=== PATIENT | female | born 1960 | race Two or more races ===

== ENCOUNTER → 2020-08-17 15:25 | Outpatient (BNV) | payer MEDICAID, SELFPAY | PROVIDERS: PCP Family Medicine; Visit Provider Internal Medicine | DX: D61.818 Other pancytopenia (principal) | CPT/HCPCS: 99204; 99213; 99214 ==

== ENCOUNTER → 2020-08-22 14:47 | Outpatient (BNVA) | payer MEDICAID, SELFPAY | PROVIDERS: PCP Family Medicine; Referring Provider Family Medicine; Visit Provider Nurse Practitioner | DX: K74.60 Unspecified cirrhosis of liver (principal); R18.8 Other ascites; I85.10 Secondary esophageal varices without bleeding; D69.6 Thrombocytopenia, unspecified; K31.9 Disease of stomach and duodenum, unspecified; Z79.899 Other long term (current) drug therapy | CPT/HCPCS: 99212 ==

== ENCOUNTER → 2020-09-26 09:13 | Outpatient (BNVA) | payer MEDICAID, SELFPAY | PROVIDERS: PCP Family Medicine; Referring Provider Family Medicine; Visit Provider Nurse Practitioner | DX: Z76.89 Persons encountering health services in other specified circumstances (principal) ==

== ENCOUNTER → 2020-11-21 15:09 | Outpatient (BNVA) | payer MEDICAID, SELFPAY | PROVIDERS: PCP Family Medicine; Visit Provider Nurse Practitioner ==

== ENCOUNTER → 2022-10-11 10:53 | Outpatient (BNVA) | payer MEDICAID, SELFPAY | PROVIDERS: PCP Family Medicine; Visit Provider Nurse Practitioner | DX: K74.60 Unspecified cirrhosis of liver (principal); D69.6 Thrombocytopenia, unspecified; R18.8 Other ascites | CPT/HCPCS: 99212 ==

== ENCOUNTER 2022-10-29 16:06 | Outpatient (REF) | payer MEDICAID, SELFPAY ==
[2022-10-29 18:04] LABS: Hematocrit 34.5 % (37.0-47.0); Hemoglobin 11.8 g/dl (12.0-16.0); Mean Corpuscular HGB Conc 34.2 g/dl (31.0-35.0); Mean Corpuscular Hemoglobin 28.4 pg (27.0-33.0); Mean Corpuscular Volume 83.1 fL (80.0-98.0); Mean Platelet Volume 10.1 fL (9.4-12.3); Red Blood Count 4.15 X10*6/uL (4.20-5.50); Red Cell Distribution Width 14.9 % (11.0-16.0); White Blood Count 5.7 X10*3/uL (4.8-10.8)
[2022-10-29 18:05] LABS: Platelet Count 64 X10*3/uL (160-400)
[2022-10-29 18:08] LABS: INTERNATIONAL NORM RATIO 1.3 (0.9-1.1); Prothrombin Time 14.7 SEC (10.0-13.1)
[2022-10-29 18:20] LABS: Potassium Urine Random 20.7 mmol/L
[2022-10-29 19:00] LABS: Alanine Aminotransferase 28 U/L (0-31); Albumin Level 2.9 g/dL (3.5-5.0); Alkaline Phosphatase 220 U/L (39-117); Anion Gap 11 (12-20); Aspartate Amino Transferase 38 U/L (5-31); Bilirubin Total 1.6 mg/dL (0.0-1.0); Blood Urea Nitrogen 10 mg/dL (9-16); Calcium 8.6 mg/dL (8.4-10.2); Carbon Dioxide 24 mmol/L (22-29); Chloride 102 mmol/L (96-108); Estimated Glomerular Filt Rate > 60; Glucose Random 397 mg/dL (60-115); Potassium 3.8 mmol/L (3.3-5.1); Sodium 133 mmol/L (135-145); Total Protein 7.3 g/dL (6.5-8.0)
[2022-10-31 08:21] LABS: Hepatitis A Antibody IgG REACTIVE (Nonreactive)
[2022-10-31 08:22] LABS: HBS Num1 98.72 mIU/mL (0-7.99); HBc Num1 8.81 S/CO (0.00-0.79); HBsAGNum1 0.39 S/CO (0.00-0.99); Hepatitis B Surface Antigen Negative (Negative); ~HepC Num1 0.12 S/CO (0.00-0.79); ~Hepatitis B Surface Antibody REACTIVE (Nonreactive); ~Hepatitis C Antibody Nonreactive (Nonreactive)
[2022-10-31 10:11] LABS: HBc Num2 8.81 S/CO; Hepatitis B Core Antibody Reactive (Nonreactive)
[2022-11-02 16:03] LABS: Hepatitis B Core Antibody IgM NON-REACTIVE (NON-REACTIVE)
== END 2022-10-29 16:07 | disposition home or self-care (01) ==
LOC: HO.LAB 16:06
PROVIDERS: PCP Family Medicine; Visit Provider Internal Medicine
DX: K74.60 Unspecified cirrhosis of liver (principal); K76.82 Hepatic encephalopathy; R18.8 Other ascites; I85.00 Esophageal varices without bleeding; J98.4 Other disorders of lung; J91.8 Pleural effusion in other conditions classified elsewhere; Z79.899 Other long term (current) drug therapy; Z86.010 Personal history of colon polyps
CPT/HCPCS: 36415; 80053; 84133; 84300; 85027; 85610; 86704; 86705; 86706; 86708; 86803; 87340; 99212

== ENCOUNTER → 2022-11-27 10:35 | Outpatient (BNVA) | payer MEDICAID, SELFPAY | PROVIDERS: PCP Family Medicine; Visit Provider Internal Medicine | DX: K74.60 Unspecified cirrhosis of liver (principal); R18.8 Other ascites; I85.00 Esophageal varices without bleeding; K76.9 Liver disease, unspecified; J91.8 Pleural effusion in other conditions classified elsewhere; J94.8 Other specified pleural conditions; K76.82 Hepatic encephalopathy; Z86.010 Personal history of colon polyps; Z79.899 Other long term (current) drug therapy | CPT/HCPCS: 99212 ==

== ENCOUNTER 2023-02-04 13:18 | Emergency (ER) | payer MEDICAID, SELFPAY ==
[2023-02-04 13:58] VITALS: BP 134/57; PULSE 90; RESP 18; TEMP 36.7; O2SAT 99; BMI 32.9
--- NOTE | 2023-02-04 13:58 | ED.GENADULT ---
HPI - General Adult General Chief complaint: Skin/Abscess/Foreign Body Stated complaint: Rash Time Seen by Provider: 02/04/23 14:00 Source: patient and family Mode of arrival: ambulatory Limitations: no limitations History of Present Illness HPI narrative: 62 yo Cymro speaking female with history of cirrhosis w/ history of encephalopathy, ascites, thromocytopenia who presents to the ER for evaluation of a pruritic rash all over her body for the last 3 weeks, it is overall improving. She is here with her daughter who has a similar rash. She denies any new soaps, lotions, detergents or perfumes. She cannot recall where the rash started. She has not taken any medications or used any creams for the rash and it is almost gone on its own. MD complaint: rash Onset (ago): week(s) (3) Severity: moderate Quality: other (itchy) Pain Consistency: intermittent Relieving factors: none Exacerbating factors: none Associated symptoms: denies other symptoms Treatments prior to arrival: none Related Data Home Medications Medication Instructions Recorded Confirmed benztropine 0.5 mg tablet 0.5 mg PO BID 08/17/20 03/23/22 haloperidol 5 mg tablet 5 mg PO BEDTIME 08/17/20 03/23/22 insulin glargine 100 unit/mL 50 unit subcut QPM 08/17/20 03/23/22 subcutaneous cartridge insulin lispro 100 unit/mL See Protocol subcut TID 08/17/20 03/23/22 subcutaneous pen (Humalog KwikPen (U-100) Insulin) lorazepam 0.5 mg tablet 0.5 mg PO DAILY 08/17/20 03/23/22 glipizide 10 mg tablet 10 mg PO BID 09/26/20 03/23/22 Previous Rx's Medication Instructions Recorded blood pressure monitor (Blood #1 ea 10/29/22 Pressure Kit) peg 3350-electrolytes 236 240 ml PO Q10M colonoscopy #4,000 10/29/22 gram-22.74 gram-6.74 gram-5.86 mL gram solution (Golytely) spironolactone 100 mg tablet 100 mg PO DAILY 30 days #30 tabs 10/29/22 furosemide 40 mg tablet 40 mg PO QAM 90 days #90 tabs 01/29/23 propranolol 10 mg tablet 30 mg PO BID 30 days #180 tabs 01/29/23 hydrocortisone 2.5 % topical 1 appl topical BID PRN itching 02/04/23 ointment #28.35 grams Allergies Allergy/AdvReac Type Severity Reaction Status Date / Time Penicillins Allergy Unknown HIVES Verified 11/27/22 10:42 Review of Systems Review of Systems: Yes all other systems are reviewed and are negative [facility] Past Medical History Medical History Cirrhosis of liver with ascites Diabetes Esophageal varices determined by endoscopy Hypertension Parkinson disease Surgical History Hx of colonoscopy Hx of esophagogastroduodenoscopy Family History Family History Father Colon cancer Mother Diabetes Colon polyps Daughter Lupus Social History Social History Household Members: Children Housing: House Housing Other:: Duplex Are you a primary home health care worker to a significant other at home: No Do you presently have visiting nurse or other home services: No Alcohol intake: former Patient Tobacco Use Status: Never used Tobacco Advance Directives: No Advance Directives Information Provided: Yes service: No Current occupational status: unemployed and disabled Physical Exam ED Vital Signs: Vital Signs - 24 hr 02/04/23 13:58 Temperature 98.0 F Pulse Rate 90 Respiratory Rate 18 Blood Pressure 134/57 L Pulse Oximetry 99 Oxygen Delivery Method Room Air BMI result Body Mass Index 32.9 Appearance: Alert. Oriented X3. No acute distress. HEENT: normal inspection CVS: Normal heart rate and rhythm. Pulses normal. Respiratory: No respiratory distress. Skin: Skin warm and dry. Normal skin color. Normal skin turgor. No rashes. Few excoriations to the upper back. Extremities: normal inspection x4, no joint swelling Neuro: Oriented X 3. No motor deficit. No sensory deficit. Course Course Course Narrative: RME - 62yo female presenting for rash that began 3 weeks ago on her arms, back, and trunk which have been improving over time. Her daughter developed a similar rash 1 week ago. Patient has not taken anything for the rash. Denies new lotions, creams, medications, detergents. Endorses pruritis, denies fever. Plan: d/c Medical Decision Making Medical Decision Making [facility] Narrative: 62 yo female presenting to the ER for a rash for the last 3 weeks. No visible rash on exam, small excoriations on upper back from scratching. She reports some ongoing itching but overall improved. Exam is unreamarkable. Will start PRN topical steroids and PRN benadryl. Stable for d/c home. Differential Diagnosis Differential Diagnoses: The differential diagnosis associated with the presentation includes contact dermatitis, eczema, bed bugs, allergic reaction Independent Historian Clinical information obtained from an independent historian. History obtained from or confirmed by: Other (daughter) External Record Review External record reviewed: Prior outpatient labs Prescription Management I considered prescription management with: Other (steroids) Critical Care Time Critical Care Time Critical Care Time: No Discharge Plan Discharge Clinical Impression: Dermatitis Patient Disposition: Home, Self-Care Instructions: Dermatitis (ED) Additional Instructions: Recommend 50mg of Benadryl every 6-8 hours as needed for itching Use the Hydrocortisone ointment as needed for itching. Follow up with your primary care doctor. Prescriptions: New hydrocortisone 2.5 % ointment 1 appl topical BID PRN (Reason: itching) Qty: 28.35 0RF No Action propranolol 10 mg tablet 30 mg PO BID 30 Days Qty: 180 0RF furosemide 40 mg tablet 40 mg PO QAM 90 Days Qty: 90 0RF benztropine 0.5 mg Tablet 0.5 mg PO BID haloperidol 5 mg Tablet 5 mg PO BEDTIME lorazepam 0.5 mg Tablet 0.5 mg PO DAILY insulin lispro [Humalog KwikPen Insulin] 100 unit/mL Insulin Pen See Protocol SUBCUT TID Protocol: Insulin Correction Scale Less than or equal to 110 ---- Give (units): 0 111 to 150 Give (units): 0 151 to 200 Give (units): 2 201 to 250 Give (units): 4 251 to 300 Give (units): 6 301 to 350 Give (units): 8 Greater than 350 Give (units): 10 Call MD if Blood Glucose > : 350 Patient Comments: pt has MD sliding scale Rx Instructions: sliding scale Lantus U-100 Insulin 100 unit/mL Cartridge 50 unit SUBCUT QPM glipizide 10 mg tablet 10 mg PO BID (DME) blood pressure monitor [Blood Pressure Kit] Kit See Rx Instructions .Route Qty: 1 0RF Rx Instructions: As directed peg 3350-electrolytes [Golytely] 236-22.74-6.74 -5.86 gram recon soln 240 ml PO Q10M Qty: 4000 0RF Rx Instructions: as per split prep instructions, until fecal effluent is clear spironolactone 100 mg tablet 100 mg PO DAILY 30 Days Qty: 30 0RF Interventions: ED Discharge Assessment Last Done: 02/04/23 14:04 Discharge Date/Time: 02/04/23 14:07 Print Language: Cymro
--- NOTE | 2023-02-04 14:04 | ED_ITS ---
HPI - General Adult General Chief complaint: Skin/Abscess/Foreign Body Stated complaint: Rash Time Seen by Provider: 02/04/23 14:00 Related Data Home Medications Medication Instructions Recorded Confirmed benztropine 0.5 mg tablet 0.5 mg PO BID 08/17/20 03/23/22 haloperidol 5 mg tablet 5 mg PO BEDTIME 08/17/20 03/23/22 insulin glargine 100 unit/mL 50 unit subcut QPM 08/17/20 03/23/22 subcutaneous cartridge insulin lispro 100 unit/mL See Protocol subcut TID 08/17/20 03/23/22 subcutaneous pen (Humalog KwikPen (U-100) Insulin) lorazepam 0.5 mg tablet 0.5 mg PO DAILY 08/17/20 03/23/22 glipizide 10 mg tablet 10 mg PO BID 09/26/20 03/23/22 Previous Rx's Medication Instructions Recorded blood pressure monitor (Blood #1 ea 10/29/22 Pressure Kit) peg 3350-electrolytes 236 240 ml PO Q10M colonoscopy #4,000 10/29/22 gram-22.74 gram-6.74 gram-5.86 mL gram solution (Golytely) spironolactone 100 mg tablet 100 mg PO DAILY 30 days #30 tabs 10/29/22 furosemide 40 mg tablet 40 mg PO QAM 90 days #90 tabs 01/29/23 propranolol 10 mg tablet 30 mg PO BID 30 days #180 tabs 01/29/23 hydrocortisone 2.5 % topical 1 appl topical BID PRN itching 02/04/23 ointment #28.35 grams Allergies Allergy/AdvReac Type Severity Reaction Status Date / Time Penicillins Allergy Unknown HIVES Verified 11/27/22 10:42 [facility] Past Medical History Medical History Cirrhosis of liver with ascites Diabetes Esophageal varices determined by endoscopy Hypertension Parkinson disease Surgical History Hx of colonoscopy Hx of esophagogastroduodenoscopy Family History Family History Father Colon cancer Mother Diabetes Colon polyps Daughter Lupus Social History Social History Household Members: Children Housing: House Housing Other:: [employer] Are you a primary child care cook to a significant other at home: No Do you presently have visiting nurse or other home services: No Alcohol intake: former Patient Tobacco Use Status: Never used Tobacco Advance Directives: No Advance Directives Information Provided: Yes service: No Current occupational status: unemployed and disabled Physical Exam ED Vital Signs: Vital Signs - 24 hr 02/04/23 13:58 Temperature 98.0 F Pulse Rate 90 Respiratory Rate 18 Blood Pressure 134/57 L Pulse Oximetry 99 Oxygen Delivery Method Room Air BMI result Body Mass Index 32.9 Discharge Plan Discharge Clinical Impression: Dermatitis Patient Disposition: Home, Self-Care Instructions: Dermatitis (ED) Additional Instructions: Recommend 50mg of Benadryl every 6-8 hours as needed for itching Use the Hydrocortisone ointment as needed for itching. Follow up with your primary care doctor. Prescriptions: New hydrocortisone 2.5 % ointment 1 appl topical BID PRN (Reason: itching) Qty: 28.35 0RF No Action propranolol 10 mg tablet 30 mg PO BID 30 Days Qty: 180 0RF furosemide 40 mg tablet 40 mg PO QAM 90 Days Qty: 90 0RF benztropine 0.5 mg Tablet 0.5 mg PO BID haloperidol 5 mg Tablet 5 mg PO BEDTIME lorazepam 0.5 mg Tablet 0.5 mg PO DAILY insulin lispro [Humalog KwikPen Insulin] 100 unit/mL Insulin Pen See Protocol SUBCUT TID Protocol: Insulin Correction Scale Less than or equal to 110 ---- Give (units): 0 111 to 150 Give (units): 0 151 to 200 Give (units): 2 201 to 250 Give (units): 4 251 to 300 Give (units): 6 301 to 350 Give (units): 8 Greater than 350 Give (units): 10 Call MD if Blood Glucose > : 350 Patient Comments: pt has MD sliding scale Rx Instructions: sliding scale Lantus U-100 Insulin 100 unit/mL Cartridge 50 unit SUBCUT QPM glipizide 10 mg tablet 10 mg PO BID (DME) blood pressure monitor [Blood Pressure Kit] Kit See Rx Instructions .Route Qty: 1 0RF Rx Instructions: As directed peg 3350-electrolytes [Golytely] 236-22.74-6.74 -5.86 gram recon soln 240 ml PO Q10M Qty: 4000 0RF Rx Instructions: as per split prep instructions, until fecal effluent is clear spironolactone 100 mg tablet 100 mg PO DAILY 30 Days Qty: 30 0RF Interventions: ED Discharge Assessment Last Done: 02/04/23 14:04 Print Language: Maori
== END 2023-02-04 14:07 | disposition home or self-care (01) ==
PROVIDERS: Emergency Provider Emergency Medicine; PCP Registered Nurse
DX: L30.9 Dermatitis, unspecified (principal); Z79.899 Other long term (current) drug therapy
CPT/HCPCS: 99282; 99283

== ENCOUNTER 2023-03-20 14:46 | Outpatient (REF) | payer MEDICAID, SELFPAY ==
[2023-03-20 16:51] LABS: Hematocrit 30.1 % (37.0-47.0); Hemoglobin 10.1 g/dl (12.0-16.0); Mean Corpuscular HGB Conc 33.6 g/dl (31.0-35.0); Mean Corpuscular Hemoglobin 27.7 pg (27.0-33.0); Mean Corpuscular Volume 82.7 fL (80.0-98.0); Mean Platelet Volume 9.8 fL (9.4-12.3); Red Blood Count 3.64 X10*6/uL (4.20-5.50); Red Cell Distribution Width 14.9 % (11.0-16.0)
[2023-03-20 16:54] LABS: INTERNATIONAL NORM RATIO 1.2 (0.9-1.1); Prothrombin Time 13.6 SEC (10.0-13.1)
[2023-03-20 16:56] LABS: Platelet Count 68 X10*3/uL (160-400)
[2023-03-20 17:12] LABS: Potassium Urine Random 29.5 mmol/L
[2023-03-20 17:18] LABS: Alanine Aminotransferase 36 U/L (0-31); Albumin Level 2.4 g/dL (3.5-5.0); Alkaline Phosphatase 220 U/L (39-117); Anion Gap 11 (12-20); Aspartate Amino Transferase 42 U/L (5-31); Bilirubin Total 1.1 mg/dL (0.0-1.0); Blood Urea Nitrogen 17 mg/dL (9-16); Calcium 8.2 mg/dL (8.4-10.2); Carbon Dioxide 22 mmol/L (22-29); Chloride 102 mmol/L (96-108); Estimated Glomerular Filt Rate > 60; Glucose Random 342 mg/dL (60-115); Potassium 4.5 mmol/L (3.3-5.1); Sodium 130 mmol/L (135-145); Total Protein 6.5 g/dL (6.5-8.0)
== END 2023-03-20 14:47 | disposition home or self-care (01) ==
LOC: HO.LAB 14:46
PROVIDERS: PCP Registered Nurse; Visit Provider Internal Medicine
DX: R18.8 Other ascites (principal); K21.9 Gastro-esophageal reflux disease without esophagitis; K74.60 Unspecified cirrhosis of liver; I85.00 Esophageal varices without bleeding; K76.9 Liver disease, unspecified; J91.8 Pleural effusion in other conditions classified elsewhere; J94.8 Other specified pleural conditions; K76.82 Hepatic encephalopathy; Z86.010 Personal history of colon polyps; Z79.899 Other long term (current) drug therapy
CPT/HCPCS: 36415; 80053; 84133; 84300; 85027; 85610; 99212

== ENCOUNTER 2023-05-01 09:48 | Outpatient (AMB) | payer MEDICAID, SELFPAY ==
--- NOTE | 2023-05-01 09:52 | A.OFFVIS_ITS ---
Intake Vital Signs 05/01/23 09:58 Height 5 ft 2 in Weight 178 lb 9.191 oz BMI 32.7 BP 97/52 L Blood Pressure Location Lt brachial Pulse 65 Intake Visit Reasons: Follow up- pt req Intake Note: Catherine presents in the office as a patient requested follow up. CC: Daughter has concerns. She goes every 2 weeks for a paracentesis. She went last time and only 1.7L came out. That means medication is working. Stomach is not as full as it was before. She is having fluid in her lungs and pains in her chest. They are not able to do a Thorocentesis. She needs a Rx or order from the Dr. 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 Previously seen by Bere Panchal. Celso welsh, was initially diagnosed with cirrhosis 3-4 years ago incidentally on ultrasound findings which was done for abdominal discomfort. Thought to be likely secondary to QURESHI / NAFLD. no significant history of alcohol use disorder. Hep serologies negative, however Hep B core antibody not available. Early 2021, patient developed ascites. Since then, she has had paracentesis multiple times. She also had a recent admission to [facility] last month for hepatic encephalopathy, and has also been started on lactulose since then. She also had a thoracentesis from the right side in the same admission. Per records 5.2L removed by para and 1500ml removed from thora. Fluid studies N/A. Relevant medications: Propranolol 10 mg t.i.d. Furosemide 40 mg once daily Spironolactone 100 mg once daily Lactulose 30 mL t.i.d. Recent endoscopy: March 2019 EGD LA grade A esophagitis, grade II varices Colonoscopy: Fair prep. 4 polyps including 10 mm sigmoid colon polyp. Path: T.A in sigmoid colon. Recent imaging: Patient reports having an ultrasound done for a paracentesis, but does not recall when her last dedicated liver imaging was. 10/29/22: Main complain is frequent diarrhea, at least 5-6 bowel movements every day since she has started lactulose. Patient also has recurrence of ascites, and also notes that her breathing is slowly getting worse, specially when she walks for long distance. 11/27/22: Presents to the office by herself. Reports abd distention and discomfort. Unable to tell me which meds she is taking at home. Does report increasing forgetfulness and and in fact forgets to take her lactulose too quite often. She also did not know that was supposed to get labs done before this appt to adjust meds. Similarly, she is not able to tell me if she has an appt for US abd. We also tried to contact her daughter over the phone but were not able to get in touch. Left a VM in Wolof and Syriac with the help of the mason helper. 03/20/23: Missed virtual follow up with her daughter on 01/01 due to scheduling constraints. Also had to cancel her EGD/colo appt due to daughter's work schedule. Daughter now has FMLA and is able to keep up with appointments. Main complaint today is persistent abd pain and discomfort as well as frequent fluid accumulation. Most recently has also needed a thoracentesis. This was done at [facility], records not available. Pt's daughter estimates has been going at least q2w for the last couple of months. She also tells me that Catherine has also needed albumin on a few occasions due to the amount of fluid removed. Salt restriction is minimal, pt often eats food with added salt and has access to salt shaker as well. Labs ordered from last visit including updated kidney function still pending. Current liver related meds: (Pill box not available but from daughter's recall) ??Losartan 25 mg Spironolactone 25 bid (was Rxed 100mg once daily by me, unsure of when and why the dose was changed) Furosemide 40 mg BID (was Rxed 40mg once daily by me, unsure of when and why the dose was changed)) Propranolol 30 TID (was Rxed 30mg BID by me, but appears the dosing was not updated on their end) Pt not taking lactulose syp. EGD colo pending as above. Overdue on HCC screening. US was previously ordered in Oct but not booked, sent out another request today. 05/01/23: Daughter requested this visit as pt was noted to accumulate more fluid in the lungs based on her most recent visit to [facility] for paracentesis. Pt reports somewhat pronounced shortness of breath on activity but no orthopnea. Does not think her activity levels are all that affected despite this. No abd pain, chest pain, cough, fever. Current meds: furosemide 40 spironolactone 100 (increased from 50 two weeks ago) propranolol 30 bid lactulose titrated to 2-3 BMs PFSH Medical History Cirrhosis of liver with ascites Diabetes Esophageal varices determined by endoscopy Hypertension Parkinson disease Surgical History Hx of colonoscopy Hx of esophagogastroduodenoscopy Family History Father Colon cancer Mother Diabetes Colon polyps Daughter Lupus Social History Household Members: Children Housing: House Housing Other:: [employer] Are you a primary residential care facility manager to a significant other at home: No Do you presently have visiting nurse or other home services: No Alcohol intake: former Patient Tobacco Use Status: Never used Tobacco service: No Current occupational status: unemployed and disabled Review of Systems Const All systems reviewed & are unremarkable except as noted in HPI and below Physical Exam Vital Signs: Last Vital Signs Pulse 65 05/01/23 09:58 BP 97/52 L 05/01/23 09:58 BMI result Body Mass Index 32.7 Gen appear: elderly female, more alert today HEENT: no icterus, no cervical lymphadenopathy Chest: No overt resp distress CVS: S1/S2, regular Abd: soft, nontender, distended, positive fluid thrill Neuro: A/Ox3 noted to move all extremities spontaneously, no asterixis Ext: no peripheral edema Assessment & Plan Assessment & Plan (1) Cirrhosis of liver with ascites: Code(s): K74.60 - Unspecified cirrhosis of liver; R18.8 - Other ascites (2) Esophageal varices determined by endoscopy: Code(s): I85.00 - Esophageal varices without bleeding (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: Code(s): Z79.899 - Other senior care (current) drug therapy (4) Pleural effusion associated with hepatic disorder: Code(s): K76.9 - Liver disease, unspecified; J91.8 - Pleural effusion in other conditions classified elsewhere (5) 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 Again reviewed that goal of diuretic optimization is to decrease her dependence on taps to reduce risk of bleeding, infection and sudden volume shifts. Will obtain XR chest and updated BMP to bump up diuretics further. She may also need a pulm referral if hepatic hydrothorax is confirmed. 1. Ascites/pleural effusion: needs further optimization of diuretic regimen. - BMP to be done TODAY as above with urine lytes - CXR ordered - Based on results, will increase to lasix 60 and spironlactone 150 - May need addition of midodrine depending on BP post adjustment 2. Hepatic encephalopathy: Much improved with better adherence to Lactulose titrated to 2-3 BMs per day. 3. Primary prophylaxis for variceal hemorrhage: HR 65 today. Cont propranolol 30 BID. EGD coming up later this month. 4. HCC screening: Overdue for liver imaging. Missed her US abd appt 04/05. Reminded to get this done, again today. 5. Nutrition: Advised 2 g sodium restriction. Patient to not restrict protein intake. Add nighttime snack. 6. Avoid NSAIDs. Tylenol is okay for pain control. 7. Personal history of polyps: [place] scheduled for next week. 8. Transplant candidacy: decomp cirrhosis with MELD 17. Will benefit from referral to transplant hepatology. Follow up after scopes. 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
[2023-05-01 09:58] VITALS: BP 97/52; PULSE 65; BMI 32.7
== END 2023-05-01 13:56 | disposition home or self-care (01) ==
PROVIDERS: PCP Registered Nurse; Visit Provider Internal Medicine
DX: Z86.010 Personal history of colon polyps (principal); K74.60 Unspecified cirrhosis of liver; R18.8 Other ascites; I85.00 Esophageal varices without bleeding; Z79.899 Other long term (current) drug therapy; K76.9 Liver disease, unspecified; J91.8 Pleural effusion in other conditions classified elsewhere; J94.8 Other specified pleural conditions; K76.82 Hepatic encephalopathy
CPT/HCPCS: 99214

== ENCOUNTER 2023-05-01 09:48 | Outpatient (REF) | payer MEDICAID, SELFPAY ==
--- NOTE | ~2023-05-01 | XR_ITS ---
EXAMINATION: XR CHEST CLINICAL INFORMATION: Pleural condition COMPARISON: 10/25/2012 TECHNIQUE: 2 views of the chest were obtained. FINDINGS: Large right pleural effusion obscuring the mid and lower lung zones. Subcentimeter dense lung nodule, likely calcified granuloma, seen on 01/25/[address] Heart and mediastinum within normal limits. No obvious vascular congestion. Bony structures are intact. XR/XR chest 2V IMPRESSION: Large right pleural effusion.
[2023-05-01 14:26] LABS: Potassium Urine Random 32.4 mmol/L
== END 2023-05-01 09:49 | disposition home or self-care (01) ==
LOC: HO.LAB 09:48
PROVIDERS: PCP Registered Nurse; Visit Provider Internal Medicine
DX: K74.60 Unspecified cirrhosis of liver (principal); K76.82 Hepatic encephalopathy; K76.9 Liver disease, unspecified; J91.8 Pleural effusion in other conditions classified elsewhere; J94.8 Other specified pleural conditions; R18.8 Other ascites; I85.00 Esophageal varices without bleeding; Z86.010 Personal history of colon polyps; Z79.899 Other long term (current) drug therapy
CPT/HCPCS: 71046; 84133; 84300; 99212

== ENCOUNTER 2023-05-03 15:17 | Outpatient (AMB) | payer MEDICAID, SELFPAY ==
[2023-05-03 15:23] VITALS: BP 136/58; PULSE 71; O2SAT 98; BMI 33.5
--- NOTE | 2023-05-03 15:23 | MHC.OFFVIS ---
Intake Vital Signs 05/03/23 15:23 Height 5 ft 2 in Weight 182 lb 15.739 oz BMI 33.5 BP 136/58 L Blood Pressure Location Rt brachial Position Sitting Pulse 71 Pulse Source Pulse Oximeter Pulse Oximetry (%) 98 Oxygen Delivery Method Room Air Intake Visit Reasons: Pleural Effusion Intake Note: Catherine is a new pt who presents today with her daughter. Pt reports having fluid in her lungs seen in x-ray from 05/01/23. Pt complains of shortness of breath on exertion, slight wheezing, and dry coughing throughout the night. Allergies Penicillins Allergy (Unknown, Verified 05/03/23 15:25) HIVES HPI Pleural Effusion HPI Details 62-year-old lady with underlying cirrhosis with ascites requiring recurrent paracentesis, followed by Dr. Roldan referred for new finding hepatic hydrothorax on chest x-ray from 05/01/2023. Patient does complain of some dyspnea on exertion. On the day of disease evaluation her diuretic regimen has been increased to 60 mg of Lasix daily and 150 mg of spironolactone daily. Patient has not started on her new regimen yet. 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 Hypertension Parkinson disease Surgical History Hx of colonoscopy Hx of esophagogastroduodenoscopy Family History Father Colon cancer Mother Diabetes Colon polyps Daughter Lupus Social History (Updated 05/03/23 @ 15:34 by Gogo Moreno CMA) Household Members: Children Housing: House Housing Other:: Duplex Are you a primary farm or ranch animal caretaker to a significant other at home: No Do you presently have visiting nurse or other home services: No Alcohol intake: former Patient Tobacco Use Status: Former Tobacco user service: No Current occupational status: unemployed and disabled Review of Systems Const Denies daytime sleepiness, Denies excessive sweating, Denies fatigue, Denies fever(s), Denies lethargy, Denies malaise, Denies night sweats, Denies snoring and Denies weight loss Eyes Denies blurry vision and Denies itchy eyes ENT Denies nasal congestion, Denies post nasal drip, Denies sinus pain, Denies sinus pressure and Denies other ( Thrush) Card Denies chest pain, Reports pedal edema, Denies dyspnea, Reports dyspnea on exertion, Denies orthopnea and Denies paroxysmal nocturnal dyspnea Resp Denies cough, Denies hemoptysis, Denies excessive phlegm production, Denies dyspnea, Reports dyspnea on exertion, Denies snoring and Denies wheezing GI Denies abdominal pain, Denies heartburn and Reports other (Ascites) Musc Denies myalgias, Denies arthralgias and Denies joint swelling Skin/Breast Denies rash Neuro Denies memory loss and Denies seizure-like activity Psych Denies abnormal sleep pattern, Denies anxiety and Denies memory loss Endo Denies excessive sweating, Denies fatigue and Denies heat intolerance [place]/Lymph Denies easy bruising Aller/Immun Denies itchy eyes, Denies seasonal rhinorrhea and Denies wheezing Physical Exam Vital Signs: Last Vital Signs Pulse 71 05/03/23 15:23 BP 136/58 L 05/03/23 15:23 Pulse Ox 98 05/03/23 15:23 Oxygen Delivery Method Room Air 05/03/23 15:23 BMI result Body Mass Index 33.5 Const General: no acute distress and alert Nutritional Appearance: not obese Orientation/consciousness: Other orientation findings ( oriented) HEENT Head: Yes atraumatic Eyes General: appearance normal, both eyes and all related structures Sclerae: sclerae normal EOM: EOMs intact bilaterally Neck Neck: Yes supple Lymphatic: no lymphadenopathy noted Resp Effort & Inspection: normal respiratory effort and no use of accessory muscles Auscultation: other (No air movement at the right base) Cardio Rate: regular rate Rhythm: regular rhythm Heart sounds: no gallops, no murmurs and no rubs GI Other: Protuberant, distended, nontender Skin General skin exam: other ( warm) Extrem General: No clubbing, No cyanosis and Yes edema (2+ bilateral) Assessment & Plan Assessment & Plan (1) Hydrothorax: Code(s): J94.8 - Other specified pleural conditions Plan: Hepatic hydrothorax. Mildly symptomatic. 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 If symptomatically not improving over the next several days, will repeat chest x-ray, and if no improvement pleural effusion, will schedule for therapeutic thoracentesis. Overall, therapeutic thoracentesis of hepatic hydrothorax is a very temporizing measure, and if ascites accumulation is not able to be controlled with diuretic, then patient may benefit for evaluation for TIPS procedure or liver transplant. Coding Level of Care Code New Pt Level 4 (20839) Diagnoses Hydrothorax J94.8
== END 2023-05-03 15:50 | disposition home or self-care (01) ==
PROVIDERS: PCP Registered Nurse; Visit Provider Internal Medicine Pulmonary Disease
DX: J94.8 Other specified pleural conditions (principal)
CPT/HCPCS: 99204

== ENCOUNTER → 2023-05-03 15:17 | Outpatient (BNVA) | payer MEDICAID, SELFPAY | PROVIDERS: PCP Registered Nurse; Visit Provider Internal Medicine Pulmonary Disease | DX: J94.8 Other specified pleural conditions (principal) | CPT/HCPCS: 99202 ==

== ENCOUNTER 2023-05-09 09:02 | Outpatient (REF) | payer MEDICAID, SELFPAY ==
--- NOTE | ~2023-05-09 | US_ITS ---
EXAMINATION: US ABDOMEN COMPLETE CLINICAL INFORMATION: Unspecified cirrhosis of liver. COMPARISON: MRI abdomen 11/20/2019. Ultrasound abdomen complete 11/06/2019 and 11/03/2018. CT abdomen and pelvis 01/25/2017. TECHNIQUE: Real-time imaging of the abdominal viscera. Limited visualization due to bowel gas and body habitus. FINDINGS: PANCREAS: Imaged portion of pancreas appears heterogeneous and possibly enlarged. Limited visualization. ABDOMINAL AORTA: Portions of proximal and mid abdominal aorta are nonaneurysmal. Distal abdominal aorta not visualized. INFERIOR VENA CAVA: Visualized portions are normal. LIVER: Ascites in all four quadrants of the abdomen. Lobular hepatic contour with heterogeneous hepatic echotexture compatible with given history of cirrhosis. Limited visualization. Varices better characterized on MRI. GALLBLADDER: Surgically absent. COMMON BILE DUCT: Normal in caliber measuring 0.6 cm in diameter. RIGHT KIDNEY: No hydronephrosis. No renal calculi. Limited visualization. The kidney measures 11.0 cm in maximum dimension. LEFT KIDNEY: No hydronephrosis. No renal calculi. Limited visualization. The kidney measures 12.2 cm in maximum dimension. SPLEEN: Splenomegaly. Echogenic foci within the splenic hilum with shadowing is characteristic of calcifications. The spleen measures 17.1 cm in maximum dimension. FREE FLUID: None. US/US abdomen complete IMPRESSION: 1. Lobulated hepatic contour with heterogeneous hepatic echotexture compatible with given history of cirrhosis. 2. Ascites in all 4 quadrants of the abdomen. 3. Anterior abdominal wall varices redemonstrated, better characterized on MRI. 4. Splenomegaly redemonstrated.
== END 2023-05-09 09:03 | disposition home or self-care (01) ==
LOC: HO.US 09:02
PROVIDERS: PCP Registered Nurse; Visit Provider Internal Medicine
DX: K74.60 Unspecified cirrhosis of liver (principal); R18.8 Other ascites
CPT/HCPCS: 76700

== ENCOUNTER 2023-05-21 10:02 | Outpatient (REF) | payer MEDICAID, SELFPAY ==
[2023-05-21 13:27] LABS: Anion Gap 13 (12-20); Blood Urea Nitrogen 41 mg/dL (9-16); Calcium 9.2 mg/dL (8.4-10.2); Carbon Dioxide 18 mmol/L (22-29); Chloride 102 mmol/L (96-108); Estimated Glomerular Filt Rate > 60; Glucose Random 218 mg/dL (60-115); Potassium 6.3 mmol/L (3.3-5.1); Sodium 127 mmol/L (135-145)
== END 2023-05-21 10:03 | disposition home or self-care (01) ==
LOC: HO.LAB 10:02
PROVIDERS: Visit Provider Internal Medicine
DX: R18.8 Other ascites (principal); K74.60 Unspecified cirrhosis of liver; K76.9 Liver disease, unspecified; K76.82 Hepatic encephalopathy; I85.00 Esophageal varices without bleeding; J91.8 Pleural effusion in other conditions classified elsewhere; J94.8 Other specified pleural conditions; Z79.899 Other long term (current) drug therapy; Z86.010 Personal history of colon polyps; Z91.81 History of falling
CPT/HCPCS: 36415; 80048; 99212

== ENCOUNTER 2023-05-21 10:49 | Outpatient (AMB) | payer MEDICAID, SELFPAY ==
--- NOTE | 2023-05-21 10:58 | A.OFFVIS_ITS ---
Intake Vital Signs 05/21/23 11:01 Height 5 ft 2 in Weight 182 lb BMI 33.3 BP 111/56 L Blood Pressure Location Lt brachial Position Sitting Pulse 68 Intake Visit Reasons: discuss med change pt request Intake Note: Catherine presents in the office as a follow up to discuss her med changes. CC: Wants to know if she was going to still have Xray and that you guys are all on the same page. 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 Previously seen by Bere Panchal. Celso welsh, was initially diagnosed with cirrhosis 3-4 years ago incidentally on ultrasound findings which was done for abdominal discomfort. Thought to be likely secondary to QURESHI / NAFLD. no significant history of alcohol use disorder. Hep serologies negative, however Hep B core antibody not available. Early 2021, patient developed ascites. Since then, she has had paracentesis multiple times. She also had a recent admission to [facility] last month for hepatic encephalopathy, and has also been started on lactulose since then. She also had a thoracentesis from the right side in the same admission. Per records 5.2L removed by para and 1500ml removed from thora. Fluid studies N/A. Relevant medications: Propranolol 10 mg t.i.d. Furosemide 40 mg once daily Spironolactone 100 mg once daily Lactulose 30 mL t.i.d. Recent endoscopy: March 2019 EGD LA grade A esophagitis, grade II varices Colonoscopy: Fair prep. 4 polyps including 10 mm sigmoid colon polyp. Path: T.A in sigmoid colon. Recent imaging: Patient reports having an ultrasound done for a paracentesis, but does not recall when her last dedicated liver imaging was. 10/29/22: Main complain is frequent diarrhea, at least 5-6 bowel movements every day since she has started lactulose. Patient also has recurrence of ascites, and also notes that her breathing is slowly getting worse, specially when she walks for long distance. 11/27/22: Presents to the office by herself. Reports abd distention and discomfort. Unable to tell me which meds she is taking at home. Does report increasing forgetfulness and and in fact forgets to take her lactulose too quite often. She also did not know that was supposed to get labs done before this appt to adjust meds. Similarly, she is not able to tell me if she has an appt for US abd. We also tried to contact her daughter over the phone but were not able to get in touch. Left a VM in Senegalese and Maltese with the help of the heel shaper. 03/20/23: Missed virtual follow up with her daughter on 01/01 due to scheduling constraints. Also had to cancel her EGD/colo appt due to daughter's work schedule. Daughter now has FMLA and is able to keep up with appointments. Main complaint today is persistent abd pain and discomfort as well as frequent fluid accumulation. Most recently has also needed a thoracentesis. This was done at [facility], records not available. Pt's daughter estimates has been going at least q2w for the last couple of months. She also tells me that Catherine has also needed albumin on a few occasions due to the amount of fluid removed. Salt restriction is minimal, pt often eats food with added salt and has access to salt shaker as well. Labs ordered from last visit including updated kidney function still pending. Current liver related meds: (Pill box not available but from daughter's recall) ??Losartan 25 mg Spironolactone 25 bid (was Rxed 100mg once daily by me, unsure of when and why the dose was changed) Furosemide 40 mg BID (was Rxed 40mg once daily by me, unsure of when and why the dose was changed)) Propranolol 30 TID (was Rxed 30mg BID by me, but appears the dosing was not updated on their end) Pt not taking lactulose syp. EGD colo pending as above. Overdue on HCC screening. US was previously ordered in Oct but not booked, sent out another request today. 05/01/23: Daughter requested this visit as pt was noted to accumulate more fluid in the lungs based on her most recent visit to [facility] for paracentesis. Pt reports somewhat pronounced shortness of breath on activity but no orthopnea. Does not think her activity levels are all that affected despite this. No abd pain, chest pain, cough, fever. Current meds: furosemide 40 spironolactone 100 (increased from 50 two weeks ago) propranolol 30 bid lactulose titrated to 2-3 BMs 05/21/23: Pt's daughter requested to follow up after EGD/colo was canceled by pre-op anesthesia a day before her procedures were scheduled. Were told that due to pleural effusion, was high risk for periprocedural anesthesia complications. Procedure postponed to Sept. Has been seen by pulm - diuretics as per our office. US liver results were already reviewed with the daughter. Salt indiscretion still + camial at dinner time. Daughter working on getting meals on wheels for dinner time as well (already set up for lunch) Current meds: furosemide 60 spironolactone 150 propranolol 30 bid lactulose titrated to 2-3 BMs PFSH Medical History Cirrhosis of liver with ascites Diabetes Esophageal varices determined by endoscopy Hypertension Parkinson disease Surgical History Hx of colonoscopy Hx of esophagogastroduodenoscopy Family History Father Colon cancer Mother Diabetes Colon polyps Daughter Lupus Social History Household Members: Children Housing: House Housing Other:: Duplex Are you a primary child care education coordinator to a significant other at home: No Do you presently have visiting nurse or other home services: No Alcohol intake: former Patient Tobacco Use Status: Former Tobacco user service: No Current occupational status: unemployed and disabled Review of Systems Const All systems reviewed & are unremarkable except as noted in HPI and below Physical Exam Vital Signs: Last Vital Signs Pulse 68 05/21/23 11:01 BP 111/56 L 05/21/23 11:01 BMI result Body Mass Index 33.3 Gen appear: elderly female, more alert today HEENT: no icterus, no cervical lymphadenopathy Chest: No overt resp distress CVS: S1/S2, regular Abd: soft, nontender, distended, shifting dullness to percussion Neuro: A/Ox3 noted to move all extremities spontaneously, no asterixis Ext: no peripheral edema, large L thigh hematoma (daughter reported fall last week) Assessment & Plan Assessment & Plan (1) Cirrhosis of liver with ascites: Code(s): K74.60 - Unspecified cirrhosis of liver; R18.8 - Other ascites (2) Esophageal varices determined by endoscopy: Code(s): I85.00 - Esophageal varices without bleeding (3) skilled nursing current use of diuretic: Code(s): Z79.899 - Other long term acute care registered nurse (current) drug therapy (4) Pleural effusion associated with hepatic disorder: Code(s): K76.9 - Liver disease, unspecified; J91.8 - Pleural effusion in other conditions classified elsewhere (5) Hydrothorax: Code(s): J94.8 - Other specified pleural conditions (6) Hepatic encephalopathy: Code(s): K76.82 - Hepatic encephalopathy (7) Personal history of colonic polyps: Code(s): Z86.010 - Personal history of colonic polyps (8) Fall: Code(s): W19.XXXA - Unspecified fall, initial encounter Plan Decompensated QURSEHI cirrhosis -MELD-Na 17, Child Class B -ascites -hydrothorax -hepatic encephalopathy -varices-on propanolol for primary prevention Will continue to uptitrate diuretics as long as tolerated by renal function and BP. Currently, has ascites but tolerable, no shortness of breath on laying down. Appetite is good. 1. Ascites/pleural effusion: needs further optimization of diuretic regimen. - BMP done today - results pending - Will increase to lasix 100mg and spironolactone 250mg based on lytes and renal function - Salt restriction again re-emphasized - May need addition of midodrine depending on BP post adjustment. Daughter advised to check BP and weight at least 3 times a week. - Will also order a CXR 7-10 days before procedures in Jun to see if needs thora to optimize preprocedure. - Echo ordered to exclude cardiomyopathy and to look for pulm HTN 2. Hepatic encephalopathy: None on exam today. Cont Lactulose titrated to 2-3 BMs per day. 3. Primary prophylaxis for variceal hemorrhage: HR 65 today. Cont propranolol 30 BID. EGD now rescheduled to 07/04. 4. HCC screening: No focal liver lesions on 04/2023. Next US due for Oct 2023. Reminder set. 5. Nutrition: Advised 2 g sodium restriction. Patient to not restrict protein intake. Add nighttime snack. 6. Avoid NSAIDs. Tylenol is okay for pain control. 7. Personal history of polyps: Allison scheduled for Jun. PEG prep already with the pt. 8. Transplant candidacy: decomp cirrhosis with MELD 17. Will request referral to [facility] transplant hepatology. 9. Recent fall: Recommend PT eval. Pt also now has a walker. Follow up after scopes. Orders: Orders CA echo transthoracic complete Today K74.60 - Unspecified cirrhosis of liver, R18.8 - Other ascites Referrals Gastroenterology Referral K74.60 - Unspecified cirrhosis of liver, R18.8 - Other ascites Coding Level of Care Code Est Pt Level 5 (01729) Diagnoses Cirrhosis of liver with ascites K74.60; R18.8 Esophageal varices determined by endoscopy I85.00 long term acute care registered nurse current use of diuretic Z79.899 Pleural effusion associated with hepatic disorder K76.9; J91.8 Hydrothorax J94.8 Hepatic encephalopathy K76.82 Personal history of colonic polyps Z86.010 Fall W19.XXXA
[2023-05-21 11:01] VITALS: BP 111/56; PULSE 68; BMI 33.3
== END 2023-05-21 12:24 | disposition home or self-care (01) ==
PROVIDERS: PCP Registered Nurse; Visit Provider Internal Medicine
DX: K74.60 Unspecified cirrhosis of liver (principal); R18.8 Other ascites; I85.00 Esophageal varices without bleeding; Z79.899 Other long term (current) drug therapy; K76.9 Liver disease, unspecified; J91.8 Pleural effusion in other conditions classified elsewhere; J94.8 Other specified pleural conditions; K76.82 Hepatic encephalopathy; Z86.010 Personal history of colon polyps; W19.XXXA Unspecified fall, initial encounter
CPT/HCPCS: 99215

== ENCOUNTER 2023-05-31 14:09 | Outpatient (REF) | payer MEDICAID, SELFPAY ==
[2023-05-31 16:36] LABS: Anion Gap 14 (12-20); Blood Urea Nitrogen 23 mg/dL (9-16); Calcium 8.8 mg/dL (8.4-10.2); Carbon Dioxide 19 mmol/L (22-29); Chloride 103 mmol/L (96-108); Estimated Glomerular Filt Rate > 60; Glucose Random 116 mg/dL (60-115); Potassium 4.8 mmol/L (3.3-5.1); Sodium 131 mmol/L (135-145)
== END 2023-05-31 14:10 | disposition home or self-care (01) ==
LOC: HO.LAB 14:09
PROVIDERS: PCP Registered Nurse; Visit Provider Internal Medicine
DX: R18.8 Other ascites (principal)
CPT/HCPCS: 36415; 80048

== ENCOUNTER 2023-06-17 13:01 | Outpatient (REF) | payer MEDICAID, SELFPAY ==
--- NOTE | ~2023-06-17 | XR_ITS ---
EXAMINATION: XR HIP, LEFT CLINICAL INFORMATION: Pain status-post injury. COMPARISON: None available. TECHNIQUE: AP and frog-leg lateral views of the left hip are submitted. FINDINGS: No fracture. Alignment is anatomic. Hip joint space is maintained. The soft tissues are unremarkable. Pelvic phleboliths are noted. There are atherosclerotic calcifications. XR/XR hip LT min 2V IMPRESSION: Normal left hip.
[2023-06-17 14:47] LABS: Anion Gap 10 (12-20); Blood Urea Nitrogen 24 mg/dL (9-16); Calcium 8.9 mg/dL (8.4-10.2); Carbon Dioxide 25 mmol/L (22-29); Chloride 102 mmol/L (96-108); Estimated Glomerular Filt Rate > 60; Glucose Random 79 mg/dL (60-115); Potassium 4.3 mmol/L (3.3-5.1); Sodium 133 mmol/L (135-145)
== END 2023-06-17 13:02 | disposition home or self-care (01) ==
LOC: HO.HHCX 13:01
PROVIDERS: Absent Provider Internal Medicine; PCP Registered Nurse; Visit Provider Nurse Practitioner Family
DX: Z79.899 Other long term (current) drug therapy (principal); Z91.81 History of falling
CPT/HCPCS: 36415; 73502; 80048

== ENCOUNTER → 2023-06-25 14:58 | Outpatient (REF) | payer MEDICAID, SELFPAY ==
--- NOTE | ~2023-06-25 | XR_ITS ---
EXAMINATION: XR CHEST CLINICAL INFORMATION: Pleural effusion. COMPARISON: 05/01/2023 TECHNIQUE: 2 views of the chest were obtained. FINDINGS: There is a moderate right pleural effusion decreased in size from the prior study. There is associated right passive atelectasis. Stable 7 mm nodular density in the left lower lung zone. Cardiac silhouette is unchanged. Trachea is midline. XR/XR chest 2V IMPRESSION: Moderate right pleural effusion decreased in size.
--- NOTE | 2023-06-25 15:02 | CA_ITS ---
Transthoracic Echocardiogram Patient (Last, First, Middle): Catherine Stern, Gender: Female Date of : 1960 Age: 62 Procedure Date: 06/25/2023 Procedure Type: Transthoracic Echocardiogram Location: OP Height: 157.48 cm Weight: 83.01 kg BSA: 1.84 m2 Heart Rate: bpm BP: 124 / 80 mmHg Operations Lieutenant: Referring MD: Bobbi Roldan MD Ticketing Clerk: Steffen Fuller MD Symptoms: K74.60 - Unspecified cirrhosis of liver R18.8 other Acites Study Quality: Good ECG Rhythm: Sinus Conclusions: - 1. Normal LV systolic function with normal diastolic filling pattern 2. Normal cardiac valvular Dopplers 3. Normal RV systolic pressure 4. No gross pericardial effusion Findings Left Ventricle Normal left ventricular size, thickness, and systolic function. The visually estimated ejection fraction is between 60-65%. Spectral Doppler is indicative of a normal filling pattern. Peak GLS is -20.4%, within normal limits. Right Ventricle Mildly increased right ventricular cavity size. There is normal right ventricular systolic function. Atria The left atrium is likely dilated. There is no evidence of interatrial shunt. The right atrium is normal in size. Aortic Valve Normal aortic valve structure and function. There is no aortic valve stenosis. There is no aortic valve regurgitation. Mitral Valve Normal mitral valve structure and function. There is no mitral valve regurgitation. There is no mitral valve stenosis. Pulmonic Valve The pulmonic valve is likely normal. There is trace pulmonic valve regurgitation. Tricuspid Valve Normal tricuspid valve structure. There is trace tricuspid valve regurgitation. The right ventricular systolic pressure is normal. The right ventricular systolic pressure is 24 mmHg. Normal right atrial pressure. There is no evidence of pulmonary hypertension. Great Vessels All visible segments of the aorta are normal in size. The pulmonary artery was not well visualized. Venous The inferior vena cava is normal in size and collapses greater than 50% with inspiration. Pericardium/Pleural There is no evidence of pericardial effusion. There is a bilateral pleural effusion. Measurements 2D Linear Measurements IVSd: 1.12 0.6-0.9/0.6-1.0 cm LVIDd: 4.19 3.9-5.3/4.2-5.9 cm LVIDd Index: 2.28 2.4-3.2/2.2-3.1 cm/m2 LVIDs: 2.53 2.0-3.6 cm LVPWd: 0.99 0.7-1.1 cm Ao Root: 2.60 2.1-3.5 cm LA Diam: 4.00 2.7-3.8/3.0-4.0 cm LAIDs Index: 2.17 1.5-2.3 cm/m2 LV Mass: 184.04 67-162/88-224 g LV Mass Index: 100.02 43-95/49-115 g/m2 LVOT Diam: 1.80 3.0+(-)1.3 cm Mitral Valve MV Pk E: 1.08 MV PK A: 0.69 MV Decel Time: 289.00 E/A: 1.60 E'Lateral: 8.49 E'Medial: 5.87 E/E' Med: 18.40 E/E' Lat: 12.70 PHT: 85.00 MVA PHT: 2.59 Decel [place]: 3.74 Aortic Valve AoV Pk Henrique: 2.08 AoV Mn Henrique: 1.31 AoV VTI: 0.56 AoV Pk Grad: 17.00 Aov Mn Grad: 8.00 WILFREDO Cont.VTI: 1.27 LVOT LVOT Pk Henrique: 1.11 LVOT Mn Henrique: 0.69 LVOT VTI: 0.28 LVOT Pk Grad: 5.00 LVOT Mn Grad: 3.00 LVOT Diam: 1.80 LVOT Area: 2.54 Diastolic Function MV Pk E: 1.08 MV Pk A: 0.69 E/A: 1.60 E'Medial: 5.87 E/E' Med: 18.40 E' Laterial: 8.49 E/E' Lat: 12.70 Right Ventricle TAPSE (mm): 33.00 TVS' Henrique: 12.00 Tricuspid Valve TR Pk Henrique: 2.30 TR Pk Grad: 21.00 RA Press: 3.00 RVSP: 24.00 Great Vessels Aorta Ao Root-2D: 2.60 2.0-3.7 cm Ao Asc: 2.80 2.1-3.4 cm Pulmonary Valve PV Pk Henrique: 1.18 Peak PV Grad: 6.00 Updated in Other Vendor System with Status of Final Steffen Fuller MD electronically signed on 06/26/2023 9:52:53 AM with status of Final
[2023-06-25 17:04] LABS: Anion Gap 8 (12-20); Blood Urea Nitrogen 29 mg/dL (9-16); Calcium 8.7 mg/dL (8.4-10.2); Carbon Dioxide 26 mmol/L (22-29); Chloride 97 mmol/L (96-108); Estimated Glomerular Filt Rate > 60; Glucose Random 95 mg/dL (60-115); Potassium 4.2 mmol/L (3.3-5.1); Sodium 127 mmol/L (135-145)
== END ==
LOC: HO.CARD 14:58
PROVIDERS: PCP Registered Nurse; Visit Provider Internal Medicine
DX: K74.60 Unspecified cirrhosis of liver (principal); J94.8 Other specified pleural conditions; R18.8 Other ascites
CPT/HCPCS: 36415; 71046; 80048; 93306; 93356

== ENCOUNTER → 2023-06-25 15:02 | Outpatient (BNV) | payer MEDICAID, SELFPAY | PROVIDERS: PCP Registered Nurse; Visit Provider Internal Medicine Cardiovascular Disease | DX: R18.8 Other ascites (principal) | CPT/HCPCS: 93306 ==

== ENCOUNTER 2023-07-09 13:50 | Outpatient (REF) | payer MEDICAID, SELFPAY ==
[2023-07-09 15:59] LABS: Anion Gap 9 (12-20); Blood Urea Nitrogen 28 mg/dL (9-16); Calcium 8.9 mg/dL (8.4-10.2); Carbon Dioxide 22 mmol/L (22-29); Chloride 104 mmol/L (96-108); Estimated Glomerular Filt Rate > 60; Glucose Random 248 mg/dL (60-115); Potassium 5.3 mmol/L (3.3-5.1); Sodium 130 mmol/L (135-145)
== END 2023-07-09 13:51 | disposition home or self-care (01) ==
LOC: HO.LAB 13:50
PROVIDERS: PCP Registered Nurse; Visit Provider Internal Medicine
DX: R18.8 Other ascites (principal)
CPT/HCPCS: 36415; 80048

== ENCOUNTER 2023-07-25 13:11 | Outpatient (REF) | payer MEDICAID, SELFPAY | END 2023-07-25 13:12 | disposition home or self-care (01) | LOC: HO.LAB 13:11 | PROVIDERS: PCP Nurse Practitioner Family; Visit Provider Internal Medicine | DX: Z79.899 Other long term (current) drug therapy (principal) | CPT/HCPCS: 36415; 80048 ==

== ENCOUNTER 2023-08-01 14:57 | Outpatient (REF) | payer MEDICAID, SELFPAY ==
[2023-08-01 16:18] LABS: Anion Gap 13 (12-20); Blood Urea Nitrogen 22 mg/dL (9-16); Calcium 8.7 mg/dL (8.4-10.2); Carbon Dioxide 22 mmol/L (22-29); Chloride 100 mmol/L (96-108); Estimated Glomerular Filt Rate > 60; Glucose Random 246 mg/dL (60-115); Sodium 130 mmol/L (135-145)
== END 2023-08-01 14:58 | disposition home or self-care (01) ==
LOC: HO.LAB 14:57
PROVIDERS: PCP Registered Nurse; Visit Provider Internal Medicine
DX: R18.8 Other ascites (principal)
CPT/HCPCS: 36415; 80048

== ENCOUNTER 2023-08-08 15:53 | Outpatient (REF) | payer MEDICAID, SELFPAY | END 2023-08-08 15:54 | disposition home or self-care (01) | LOC: HO.LAB 15:53 | PROVIDERS: PCP Registered Nurse; Visit Provider Internal Medicine | DX: Z13.89 Encounter for screening for other disorder (principal) ==

== ENCOUNTER 2023-08-23 10:43 | Emergency (ER) | payer MEDICAID, SELFPAY ==
--- NOTE | ~2023-08-23 | XR_ITS ---
EXAMINATION: XR CHEST CLINICAL INFORMATION: Cough. COMPARISON: Chest radiograph 06/25/2023. TECHNIQUE: 2 views of the chest were obtained. FINDINGS: Unchanged prominence of the cardiomediastinal silhouette. Decreased right-sided pleural effusion as well as improved associated right lower lobe airspace opacities. Similar central vasculature and peribronchial engorgement. No new focal airspace density. Stable 0.7 cm calcified granuloma projecting over the left lower lobe. No pneumothorax. No acute osseous findings. XR/XR chest 2V IMPRESSION: Chronic right-sided pleural effusion and chronic associated right lower lobe airspace opacities are slightly decreased compared to 06/25/2023; if not previously obtained, correlation with chest CT would be helpful to determine etiology if clinically deemed appropriate.
--- NOTE | 2023-08-23 11:09 | ED_ITS ---
HPI - General Adult General Chief complaint: General Medical Stated complaint: High Blood Sugar Time Seen by Provider: 08/23/23 11:18 Source: patient, family and translator and interpreter Mode of arrival: ambulatory Limitations: no limitations History of Present Illness HPI narrative: 63 yo female with PMH of cirrhosis, DM on insulin, PTSD, HTN, cognitive impairment for 2+ years who lives at home with daughter. For the past week blood sugar meter has been reading high. She is on tresiba and humalog sliding scale. The patient denies symptoms other than cough right now. She notes no diet changes either. Daughter states the patient is at baseline. MD complaint: elevated blood sugars Onset (ago): week(s) (1) Radiation: non-radiation Severity: moderate Relieving factors: other (insulin) Exacerbating factors: eating Associated symptoms: cough Treatments prior to arrival: other (insulin) Related Data Home Medications Medication Instructions Recorded Confirmed benztropine 0.5 mg tablet 0.5 mg PO BID 08/17/20 03/05/23 haloperidol 5 mg tablet 5 mg PO BEDTIME 08/17/20 03/05/23 insulin lispro 100 unit/mL See Protocol subcut TID 08/17/20 03/23/22 subcutaneous pen (Humalog KwikPen (U-100) Insulin) flash glucose sensor (FreeStyle #1 ea 05/01/23 Gurpreet 2 Sensor kit) insulin degludec 200 unit/mL (3 56 unit subcut QPM 05/01/23 mL) subcutaneous pen (Tresiba FlexTouch U-200 insulin) losartan 25 mg tablet 25 mg PO DAILY 05/01/23 lorazepam 0.5 mg tablet 0.5 mg PO DAILY 05/03/23 Previous Rx's Medication Instructions Recorded blood pressure monitor (Blood #1 ea 10/29/22 Pressure Kit) peg 3350-electrolytes 236 240 ml PO Q10M #4,000 mL 05/06/23 gram-22.74 gram-6.74 gram-5.86 gram solution spironolactone 100 mg tablet 150 mg (1.5 x 100 mg) PO DAILY 90 05/09/23 days #135 tabs lactulose 10 gram/15 mL (15 mL) 20 g (30 mL) PO TID 90 days #8,100 07/17/23 oral solution mL propranolol 10 mg tablet 30 mg (3 x 10 mg) PO BID 90 days 07/17/23 #540 tabs furosemide 40 mg tablet 60 mg (1.5 x 40 mg) PO QAM 90 days 08/09/23 #135 tabs Allergies Allergy/AdvReac Type Severity Reaction Status Date / Time Penicillins Allergy Unknown HIVES Verified 08/23/23 11:13 Review of Systems 2 Review of Systems: Constitutional : No Fever, No Chills, No Fatigue ENT/Mouth : No sore throat, No Rhinorrhea Eyes: No Eye Pain, No Swelling, No Redness Cardiovascular : No Chest Pain, No SOB, No Dyspnea on Exertion Respiratory : pos Cough, No Sputum Gastrointestinal : No Nausea, No Vomiting, No Diarrhea, No abdominal Pain Genitourinary : No Dysuria, No Urinary Frequency, No Hematuria, Musculoskeletal : No joint pain, No Myalgias, No Joint Swelling Skin : No Skin Lesions, No rash Neuro : No Weakness, No Numbness, No Dizziness, positive Headache Psych : No Anxiety/Panic, No Depression All other systems reviewed and are negative PMFSH Past Medical History Attestation statement: The following information was validated with the patient. Source: old records reviewed Medical History Cirrhosis of liver with ascites Diabetes Esophageal varices determined by endoscopy Hypertension Parkinson disease Surgical History Hx of esophagogastroduodenoscopy Hx of colonoscopy Family History Family History Father Colon cancer Mother Diabetes Colon polyps Daughter Lupus Social History Social History Household Members: Children Housing: House Housing Other:: [employer] Are you a primary home child care provider to a significant other at home: No Do you presently have visiting nurse or other home services: No Alcohol intake: former Patient Tobacco Use Status: Former Tobacco user Advance Directives: No Advance Directives Information Provided: No service: No Current occupational status: unemployed and disabled Physical Exam ED Vital Signs: Vital Signs - 24 hr 08/23/23 11:10 08/23/23 13:30 Temperature 98.2 F Pulse Rate 70 66 Respiratory Rate 18 16 Blood Pressure 105/52 L 115/55 L Pulse Oximetry 100 100 Oxygen Delivery Method Room Air Room Air BMI result Body Mass Index 34.6 Appearance: Alert. Oriented X3. No acute distress. slow to respond but oriented. Eyes: Pupils equal, round and reactive to light. ENT: Pharynx normal. Neck: Normal inspection. Neck supple. CVS: Normal heart rate and rhythm. Pulses normal. Respiratory: No respiratory distress. Breath sounds normal. Abdomen: Soft and nontender. Skin: Skin warm and dry. Normal skin color. Normal skin turgor. Extremities: No lower extremity edema. No calf ttp Neuro: Oriented X 3. No motor deficit. No sensory deficit. normal gait Course Course Course Narrative: This is a rapid medical exam: Additional HPI, ROS, PE not included below will be deferred to primary provider. Patient is a 63-year-old English-speaking female with history of DM, Parkinson's, HTN, cirrhosis presenting to the emergency department with report of elevated blood glucose levels for the past few days. Reports mild nasal congestion but denies any nausea, vomiting. Denies chest pain or abdominal pain. Patient somewhat delayed in answering questions. 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 08/23/23 11:59 08/23/23 11:59 Labs: Lab Results 08/23/23 08/23/23 08/23/23 Range/Units 11:16 11:41 11:59 WBC 7.2 (4.8-10.8) X10*3/uL RBC 3.45 L (4.20-5.50) X10*6/uL Hgb 9.7 L (12.0-16.0) g/dl Hct 28.4 L (37.0-47.0) % MCV 82.3 (80.0-98.0) fL MCH 28.1 (27.0-33.0) pg MCHC 34.2 (31.0-35.0) g/dl RDW 15.3 (11.0-16.0) % Plt Count 50 L D (160-400) X10*3/uL MPV 10.5 (9.4-12.3) fL Immature Gran % (Auto) 0.4 (0.0-0.4) % Neut % (Auto) 75.0 H (45-73) % Lymph % (Auto) 9.6 L (20-40) % [place] % (Auto) 9.1 (2-11) % Eos % (Auto) 5.3 H (0-4) % Baso % (Auto) 0.6 (0-2) % Lymph # (Auto) 0.7 L (1.2-4.9) X10*3/uL [place] # (Auto) 0.7 (0.1-1.2) X10*3/uL Eos # (Auto) 0.4 (0.0-0.4) X10*3/uL Baso # (Auto) 0.0 (0.0-0.2) X10*3/uL Abs Immat Gran (auto) 0.03 (0.00-0.03) X10*3/uL Absolute Neuts (auto) 5.4 (2.0-8.3) x10*3/uL Absolute Nucleated RBC 0.000 (0.0-0.012) X10*3/uL Nucleated RBC % (auto) 0.0 (0.0-0.2) /100WBC Sodium 133 L (135-145) mmol/L Potassium 4.7 (3.3-5.1) mmol/L Chloride 106 (96-108) mmol/L Carbon Dioxide 22 (22-29) mmol/L Anion Gap 10 L (12-20) BUN 28 H (9-16) mg/dL Creatinine 0.80 (0.5-1.4) mg/dL Estim Creat Clear Calc 74.0 Estimated GFR > 60 POC Glucose 191 H (60-115) mg/dL Random Glucose 234 H (60-115) mg/dL Calcium 8.6 (8.4-10.2) mg/dL Total Bilirubin 0.8 (0.0-1.0) mg/dL AST 32 H (5-31) U/L ALT 25 (0-31) U/L Alkaline Phosphatase 169 H (39-117) U/L Total Protein 6.5 (6.5-8.0) g/dL Albumin 2.4 L (3.5-5.0) g/dL Urine Color Yellow Urine Appearance Clear Urine pH 6.0 (5.0-9.0) Ur Specific [place] 1.010 (1.005-1.025) Urine Protein Negative (Neg-Trace) mg/dL Urine Glucose (UA) 100 H (Negative) mg/dL Urine Ketones Negative (Negative) mg/dL Urine Blood Trace H (Negative) Urine Nitrite Negative (Negative) Ur Leukocyte Esterase Small (1+) H (Negative) Urine RBC 0-2 (0-2) /HPF Urine WBC 0-5 (0-5) /HPF Ur Squamous Epith Cells 3-5 (0-2) /HPF Urine Bacteria None Seen (None Seen) Hyaline Casts 0-2 (0-2) /LPF COVID-19 (SHAGGY) Negative (Negative) COVID-19 Clin Com See Note Influenza Type A (NELSY) Negative (Negative) Influenza Type B (NELSY) Negative (Negative) Influenza A & B Note See Note Independent Interpretation I performed an independent interpretation of an: Plain X-Ray (stable effusion) Radiology Impression Discussion of test interpretation with radiology: I have reviewed the radiologist's reading. Independent Historian Clinical information obtained from an independent historian. History obtained from or confirmed by: Other (daughter) External Record Review External record reviewed: Inpatient record Discharge Plan Discharge Clinical Impression: Acute hyperglycemia Patient Disposition: Home, Self-Care Instructions: Diabetic Hyperglycemia (ED) Additional Instructions: no signs of diabetic ketoacidosis today please return for worsening symptoms or vomiting/abdominal pain. follow up with her doctor regarding insulin dosing as well as concerns for memory issues. Prescriptions: No Action peg 3350-electrolytes 236-22.74-6.74 -5.86 gram recon soln 240 ml PO Q10M Qty: 4000 0RF Rx Instructions: Refer to prep instructions given/ mailed to you from GI OFFICE. until fecal effluent is clear spironolactone 100 mg tablet 150 mg PO DAILY 90 Days Qty: 135 0RF lactulose 10 gram/15 mL (15 mL) solution 20 g PO TID 90 Days Qty: 8100 0RF propranolol 10 mg tablet 30 mg PO BID 90 Days Qty: 540 0RF furosemide 40 mg tablet 60 mg PO QAM 90 Days Qty: 135 0RF benztropine 0.5 mg Tablet 0.5 mg PO BID haloperidol 5 mg Tablet 5 mg PO BEDTIME insulin lispro [Humalog KwikPen Insulin] 100 unit/mL Insulin Pen See Protocol SUBCUT TID Protocol: Insulin Correction Scale Less than or equal to 110 ---- Give (units): 0 111 to 150 Give (units): 0 151 to 200 Give (units): 2 201 to 250 Give (units): 4 251 to 300 Give (units): 6 301 to 350 Give (units): 8 Greater than 350 Give (units): 10 Call MD if Blood Glucose > : 350 Patient Comments: pt has MD sliding scale Rx Instructions: sliding scale lorazepam 0.5 mg tablet 0.5 mg PO DAILY (DME) blood pressure monitor [Blood Pressure Kit] Kit See Rx Instructions .Route Qty: 1 0RF Rx Instructions: As directed insulin degludec [Tresiba FlexTouch U-200] 200 unit/mL (3 mL) insulin pen 56 unit subcut QPM (DME) FreeStyle Gurpreet 2 Sensor Kit See Rx Instructions .ROUTE Q2W Qty: 1 Rx Instructions: As directed losartan 25 mg tablet 25 mg PO DAILY
[2023-08-23 11:10] VITALS: BP 105/52; PULSE 70; RESP 18; TEMP 36.8; O2SAT 100; BMI 34.6
[2023-08-23 11:19] LABS: Glucose, Whole Blood 191 mg/dL (60-115)
[2023-08-23 11:52] LABS: Appearance Urine Clear; Color Urine Yellow; Glucose Urine UA 100 mg/dL (Negative); Leukocyte Esterase Urine Small (1+) (Negative); Nitrite Urine Negative (Negative); UMIC TRIGGER UACC YES; Urine Blood Trace (Negative); Urine Ketones Negative (Negative); Urine Protein Negative (Neg-Trace)
[2023-08-23 12:04] LABS: Bacteria Urine None Seen (None Seen); Hyaline Casts Urine 0-2 /LPF (0-2); RBC Urine 0-2 /HPF (0-2); UACC Culture Trigger YES; WBC Urine 0-5 /HPF (0-5)
[2023-08-23 12:04] LABS: MANUAL DIFF FLAG NO
[2023-08-23 12:06] LABS: IDNOW Serial# 9DB6401D; Influenza A Negative (Negative); Influenza B2 Negative (Negative)
[2023-08-23 12:06] LABS: Basophils Percent Auto 0.6 % (0-2); Eosinophils Absolute Auto 0.4 X10*3/uL (0.0-0.4); Eosinophils Percent Auto 5.3 % (0-4); Hematocrit 28.4 % (37.0-47.0); Hemoglobin 9.7 g/dl (12.0-16.0); Imm Gran Abs Auto 0.03 X10*3/uL (0.00-0.03); Imm Gran Pct Auto 0.4 % (0.0-0.4); Lymphocytes Absolute Auto 0.7 X10*3/uL (1.2-4.9); Lymphocytes Percent Auto 9.6 % (20-40); Mean Corpuscular HGB Conc 34.2 g/dl (31.0-35.0); Mean Corpuscular Hemoglobin 28.1 pg (27.0-33.0); Mean Corpuscular Volume 82.3 fL (80.0-98.0); Mean Platelet Volume 10.5 fL (9.4-12.3); Monocytes Absolute Auto 0.7 X10*3/uL (0.1-1.2); Monocytes Percent Auto 9.1 % (2-11); Neutrophils Absolute Auto 5.4 x10*3/uL (2.0-8.3); Platelet Count 50 X10*3/uL (160-400); Red Blood Count 3.45 X10*6/uL (4.20-5.50); Red Cell Distribution Width 15.3 % (11.0-16.0); White Blood Count 7.2 X10*3/uL (4.8-10.8)
[2023-08-23 12:07] LABS: COVID-19 Test Negative (Negative); IDNOW Serial# BCCEAD1C
[2023-08-23 12:21] LABS: Alanine Aminotransferase 25 U/L (0-31); Albumin Level 2.4 g/dL (3.5-5.0); Alkaline Phosphatase 169 U/L (39-117); Anion Gap 10 (12-20); Aspartate Amino Transferase 32 U/L (5-31); Bilirubin Total 0.8 mg/dL (0.0-1.0); Blood Urea Nitrogen 28 mg/dL (9-16); Calcium 8.6 mg/dL (8.4-10.2); Carbon Dioxide 22 mmol/L (22-29); Chloride 106 mmol/L (96-108); Estimated Glomerular Filt Rate > 60; Glucose Random 234 mg/dL (60-115); Potassium 4.7 mmol/L (3.3-5.1); Sodium 133 mmol/L (135-145); Total Protein 6.5 g/dL (6.5-8.0)
[2023-08-23 13:30] VITALS: BP 115/55; PULSE 66; RESP 16; O2SAT 100
== END 2023-08-23 15:45 | disposition home or self-care (01) ==
PROVIDERS: Registered Nurse Emergency; Emergency Provider Emergency Medicine; PCP Registered Nurse
DX: E11.65 Type 2 diabetes mellitus with hyperglycemia (principal); R05.9 Cough, unspecified; Z11.52 Encounter for screening for COVID-19; Z20.822 Contact with and (suspected) exposure to COVID-19; Z79.4 Long term (current) use of insulin; Z79.899 Other long term (current) drug therapy; Z87.891 Personal history of nicotine dependence
CPT/HCPCS: 36415; 71046; 80053; 81001; 82947; 85025; 87086; 87502; 87635; 99283

== ENCOUNTER 2024-02-10 14:25 | Outpatient (REF) | payer MEDICAID, SELFPAY ==
[2024-02-10 14:50] LABS: MANUAL DIFF FLAG NO
[2024-02-10 15:02] LABS: Ammonia 41 umol/L (13-55)
[2024-02-10 15:18] LABS: Basophils Percent Auto 0.3 % (0-2); Eosinophils Absolute Auto 0.3 X10*3/uL (0.0-0.4); Hematocrit 28.4 % (37.0-47.0); Hemoglobin 9.4 g/dl (12.0-16.0); Imm Gran Abs Auto 0.04 X10*3/uL (0.00-0.03); Imm Gran Pct Auto 0.6 % (0.0-0.4); Lymphocytes Absolute Auto 0.5 X10*3/uL (1.2-4.9); Lymphocytes Percent Auto 7.5 % (20-40); Mean Corpuscular HGB Conc 33.1 g/dl (31.0-35.0); Mean Corpuscular Volume 78.5 fL (80.0-98.0); Mean Platelet Volume 10.1 fL (9.4-12.3); Monocytes Absolute Auto 0.3 X10*3/uL (0.1-1.2); Monocytes Percent Auto 5.1 % (2-11); Neutrophils Absolute Auto 5.4 x10*3/uL (2.0-8.3); Neutrophils Percent Auto 82.5 % (45-73); Red Blood Count 3.62 X10*6/uL (4.20-5.50); White Blood Count 6.5 X10*3/uL (4.8-10.8)
[2024-02-10 15:20] LABS: Platelet Count 68 X10*3/uL (160-400)
[2024-02-10 15:32] LABS: INTERNATIONAL NORM RATIO 1.2 (0.9-1.1); Prothrombin Time 14.8 SEC (11.1-13.3)
[2024-02-10 16:02] LABS: Alanine Aminotransferase 22 U/L (0-31); Albumin Level 2.4 g/dL (3.5-5.0); Alkaline Phosphatase 152 U/L (39-117); Anion Gap 12 (12-20); Aspartate Amino Transferase 35 U/L (5-31); Bilirubin Total 1.2 mg/dL (0.0-1.0); Blood Urea Nitrogen 19 mg/dL (9-16); Calcium 8.7 mg/dL (8.4-10.2); Carbon Dioxide 22 mmol/L (22-29); Chloride 104 mmol/L (96-108); Estimated Glomerular Filt Rate 58; Glucose Random 364 mg/dL (60-115); Potassium 4.1 mmol/L (3.3-5.1); Sodium 134 mmol/L (135-145)
== END 2024-02-10 14:26 | disposition home or self-care (01) ==
LOC: HO.LAB 14:25
PROVIDERS: Internal Medicine; PCP Registered Nurse; Visit Provider Registered Nurse
DX: K74.60 Unspecified cirrhosis of liver (principal); R18.8 Other ascites; D69.6 Thrombocytopenia, unspecified
CPT/HCPCS: 36415; 80053; 82140; 85025; 85610

== ENCOUNTER 2024-03-09 13:41 | Outpatient (REF) | payer MEDICAID, SELFPAY ==
--- NOTE | ~2024-03-09 | XR_ITS ---
EXAM: X-RAYS BILATERAL HANDS CLINICAL INFORMATION: Chronic bilateral hand pain with contracture. Order states chronic bilateral contracture of the hands with pain. Patient was unable to straighten hands completely for images per technologist statement, limiting visualization. TECHNIQUE: 4 views of the left hand. 3 views of the right hand. Limited visualization due to contractures as detailed above. COMPARISON: None. FINDINGS: RIGHT HAND: Mild degenerative changes in the first carpometacarpal joint. Visualization of the digits is particularly limited as patient unable to separate them for positioning due to contractures. Mild degenerative changes in the first metacarpophalangeal joint. Small calcification/ossification in the soft tissues adjacent to the distal aspect of the middle phalanx of the right second digit. LEFT HAND: Mild degenerative changes in the first carpometacarpal joint. Ulnar minus variance. Visualization somewhat limited in due to limitations in patient positioning. Minimal degenerative changes in scattered IP joints. Focal sclerosis along the bases of the proximal phalanx and distal tuft of the left thumb. XR/XR hand RT min 3V IMPRESSION: 1. Mild degenerative changes in the bilateral first carpometacarpal joints. 2. Small calcification/ossification in the soft tissues adjacent to the distal aspect of the middle phalanx of the right second digit. 3. Focal sclerosis along the bases of the proximal phalanx and distal tuft of the left. 4. Limited visualization due to contractures.
--- NOTE | ~2024-03-09 | XR_ITS ---
EXAM: X-RAYS BILATERAL HANDS CLINICAL INFORMATION: Chronic bilateral hand pain with contracture. Order states chronic bilateral contracture of the hands with pain. Patient was unable to straighten hands completely for images per technologist statement, limiting visualization. TECHNIQUE: 4 views of the left hand. 3 views of the right hand. Limited visualization due to contractures as detailed above. COMPARISON: None. FINDINGS: RIGHT HAND: Mild degenerative changes in the first carpometacarpal joint. Visualization of the digits is particularly limited as patient unable to separate them for positioning due to contractures. Mild degenerative changes in the first metacarpophalangeal joint. Small calcification/ossification in the soft tissues adjacent to the distal aspect of the middle phalanx of the right second digit. LEFT HAND: Mild degenerative changes in the first carpometacarpal joint. Ulnar minus variance. Visualization somewhat limited in due to limitations in patient positioning. Minimal degenerative changes in scattered IP joints. Focal sclerosis along the bases of the proximal phalanx and distal tuft of the left thumb. XR/XR hand LT min 3V IMPRESSION: 1. Mild degenerative changes in the bilateral first carpometacarpal joints. 2. Small calcification/ossification in the soft tissues adjacent to the distal aspect of the middle phalanx of the right second digit. 3. Focal sclerosis along the bases of the proximal phalanx and distal tuft of the left. 4. Limited visualization due to contractures.
== END 2024-03-09 13:42 | disposition home or self-care (01) ==
LOC: HO.HHCX 13:41
PROVIDERS: Visit Provider Registered Nurse
DX: M24.542 Contracture, left hand (principal)
CPT/HCPCS: 73130

== ENCOUNTER 2024-05-01 15:33 | Outpatient (REF) | payer MEDICAID, SELFPAY ==
[2024-05-01 16:01] LABS: MANUAL DIFF FLAG NO
[2024-05-01 16:09] LABS: Basophils Percent Auto 0.5 % (0-2); Eosinophils Absolute Auto 0.3 X10*3/uL (0.0-0.4); Eosinophils Percent Auto 4.1 % (0-4); Hematocrit 34.1 % (37.0-47.0); Hemoglobin 11.3 g/dl (12.0-16.0); Imm Gran Abs Auto 0.03 X10*3/uL (0.00-0.03); Imm Gran Pct Auto 0.4 % (0.0-0.4); Lymphocytes Absolute Auto 1.2 X10*3/uL (1.2-4.9); Lymphocytes Percent Auto 15.5 % (20-40); Mean Corpuscular HGB Conc 33.1 g/dl (31.0-35.0); Mean Corpuscular Hemoglobin 27.1 pg (27.0-33.0); Mean Corpuscular Volume 81.8 fL (80.0-98.0); Mean Platelet Volume 10.8 fL (9.4-12.3); Monocytes Absolute Auto 0.6 X10*3/uL (0.1-1.2); Monocytes Percent Auto 8.4 % (2-11); Neutrophils Absolute Auto 5.3 x10*3/uL (2.0-8.3); Neutrophils Percent Auto 71.1 % (45-73); Red Blood Count 4.17 X10*6/uL (4.20-5.50); Red Cell Distribution Width 17.7 % (11.0-16.0); White Blood Count 7.5 X10*3/uL (4.8-10.8)
[2024-05-01 16:15] LABS: Platelet Count 66 X10*3/uL (160-400)
[2024-05-01 16:16] LABS: INTERNATIONAL NORM RATIO 1.2 (0.9-1.1); Prothrombin Time 14.6 SEC (11.1-13.3)
[2024-05-01 16:48] LABS: Alanine Aminotransferase 17 U/L (0-31); Albumin Level 2.8 g/dL (3.5-5.0); Alkaline Phosphatase 100 U/L (39-117); Anion Gap 12 (12-20); Aspartate Amino Transferase 34 U/L (5-31); Bilirubin Total 1.1 mg/dL (0.0-1.0); Blood Urea Nitrogen 35 mg/dL (9-16); Carbon Dioxide 27 mmol/L (22-29); Chloride 105 mmol/L (96-108); Estimated Glomerular Filt Rate 46; Glucose Random 89 mg/dL (60-115); Magnesium 1.8 mg/dL (1.6-2.6); Potassium 3.5 mmol/L (3.3-5.1); Sodium 140 mmol/L (135-145); Total Protein 8.1 g/dL (6.5-8.0)
[2024-05-05 07:17] LABS: Alpha Fetoprotein 2.3 ng/mL
== END 2024-05-01 15:34 | disposition home or self-care (01) ==
LOC: HO.HHCL 15:33
PROVIDERS: Visit Provider Registered Nurse
DX: M24.542 Contracture, left hand (principal); R18.8 Other ascites; K74.60 Unspecified cirrhosis of liver; J94.8 Other specified pleural conditions
CPT/HCPCS: 36415; 80053; 82105; 83735; 85025; 85610

== ENCOUNTER → 2024-06-10 12:00 | Outpatient (BNVA) | payer MEDICAID, SELFPAY | PROVIDERS: PCP Registered Nurse; Visit Provider Internal Medicine ==

== ENCOUNTER 2024-06-17 13:02 | Outpatient (REF) | payer MEDICAID, SELFPAY ==
[2024-06-17 15:04] LABS: Hematocrit 29.6 % (37.0-47.0); Hemoglobin 10.3 g/dl (12.0-16.0); Mean Corpuscular HGB Conc 34.8 g/dl (31.0-35.0); Mean Corpuscular Hemoglobin 29.6 pg (27.0-33.0); Mean Corpuscular Volume 85.1 fL (80.0-98.0); Mean Platelet Volume 11.4 fL (9.4-12.3); Red Blood Count 3.48 X10*6/uL (4.20-5.50); Red Cell Distribution Width 16.3 % (11.0-16.0); White Blood Count 7.3 X10*3/uL (4.8-10.8)
[2024-06-17 15:05] LABS: Platelet Count 45 X10*3/uL (160-400)
[2024-06-17 15:09] LABS: INTERNATIONAL NORM RATIO 1.2 (0.9-1.1); Prothrombin Time 14.8 SEC (11.1-13.3)
[2024-06-17 15:59] LABS: Alanine Aminotransferase 21 U/L (0-31); Albumin Level 2.9 g/dL (3.5-5.0); Alkaline Phosphatase 84 U/L (39-117); Anion Gap 13 (12-20); Aspartate Amino Transferase 35 U/L (5-31); Bilirubin Total 1.1 mg/dL (0.0-1.0); Blood Urea Nitrogen 54 mg/dL (9-16); Calcium 8.8 mg/dL (8.4-10.2); Carbon Dioxide 20 mmol/L (22-29); Chloride 106 mmol/L (96-108); Estimated Glomerular Filt Rate 36; Glucose Random 246 mg/dL (60-115); Potassium 4.7 mmol/L (3.3-5.1); Sodium 134 mmol/L (135-145); Total Protein 6.8 g/dL (6.5-8.0)
== END 2024-06-17 13:03 | disposition home or self-care (01) ==
LOC: HO.LAB 13:02
PROVIDERS: PCP Registered Nurse; Visit Provider Internal Medicine
DX: K76.6 Portal hypertension (principal); R18.8 Other ascites; R19.7 Diarrhea, unspecified; K74.60 Unspecified cirrhosis of liver; I85.00 Esophageal varices without bleeding; K76.82 Hepatic encephalopathy; R41.89 Other symptoms and signs involving cognitive functions and awareness; R46.89 Other symptoms and signs involving appearance and behavior; Z86.010 Personal history of colon polyps; Z91.81 History of falling; Z79.899 Other long term (current) drug therapy
CPT/HCPCS: 36415; 80053; 85027; 85610; 99212

== ENCOUNTER 2024-06-17 13:02 | Outpatient (AMB) | payer MEDICAID, SELFPAY ==
[2024-06-17 13:07] VITALS: BP 107/55; PULSE 72; BMI 27.8
--- NOTE | 2024-06-17 13:07 | MHC.OFFVIS ---
Vital Signs 06/17/24 13:07 Height 5 ft 2 in Weight 152 lb 1.903 oz BMI 27.8 BP 107/55 L Blood Pressure Location Lt brachial Position Sitting Pulse 72 Intake Visit Reasons: Meds follow Intake Note: Mary Beth presents in the office as a follow up. CC: Liver has been bothering her. Gets diarrhea often. 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 Previously seen by Bere Panchal. To anitha, was initially diagnosed with cirrhosis 3-4 years ago incidentally on ultrasound findings which was done for abdominal discomfort. Thought to be likely secondary to QURESHI / NAFLD. no significant history of alcohol use disorder. Hep serologies negative, however Hep B core antibody not available. Early 2021, patient developed ascites. Since then, she has had paracentesis multiple times. She also had a recent admission to [facility] last month for hepatic encephalopathy, and has also been started on lactulose since then. She also had a thoracentesis from the right side in the same admission. Per records 5.2L removed by para and 1500ml removed from thora. Fluid studies N/A. Relevant medications: Propranolol 10 mg t.i.d. Furosemide 40 mg once daily Spironolactone 100 mg once daily Lactulose 30 mL t.i.d. Recent endoscopy: March 2019 EGD LA grade A esophagitis, grade II varices Colonoscopy: Fair prep. 4 polyps including 10 mm sigmoid colon polyp. Path: T.A in sigmoid colon. Recent imaging: Patient reports having an ultrasound done for a paracentesis, but does not recall when her last dedicated liver imaging was. 10/29/22: Main complain is frequent diarrhea, at least 5-6 bowel movements every day since she has started lactulose. Patient also has recurrence of ascites, and also notes that her breathing is slowly getting worse, specially when she walks for long distance. 11/27/22: Presents to the office by herself. Reports abd distention and discomfort. Unable to tell me which meds she is taking at home. Does report increasing forgetfulness and and in fact forgets to take her lactulose too quite often. She also did not know that was supposed to get labs done before this appt to adjust meds. Similarly, she is not able to tell me if she has an appt for US abd. We also tried to contact her daughter over the phone but were not able to get in touch. Left a VM in Burmese and Samoan with the help of the healthcare interpreter. 03/20/23: Missed virtual follow up with her daughter on 01/01 due to scheduling constraints. Also had to cancel her EGD/colo appt due to daughter's work schedule. Daughter now has FMLA and is able to keep up with appointments. Main complaint today is persistent abd pain and discomfort as well as frequent fluid accumulation. Most recently has also needed a thoracentesis. This was done at [facility], records not available. Pt's daughter estimates has been going at least q2w for the last couple of months. She also tells me that Catherine has also needed albumin on a few occasions due to the amount of fluid removed. Salt restriction is minimal, pt often eats food with added salt and has access to salt shaker as well. Labs ordered from last visit including updated kidney function still pending. Current liver related meds: (Pill box not available but from daughter's recall) ??Losartan 25 mg Spironolactone 25 bid (was Rxed 100mg once daily by me, unsure of when and why the dose was changed) Furosemide 40 mg BID (was Rxed 40mg once daily by me, unsure of when and why the dose was changed)) Propranolol 30 TID (was Rxed 30mg BID by me, but appears the dosing was not updated on their end) Pt not taking lactulose syp. EGD colo pending as above. Overdue on HCC screening. US was previously ordered in Oct but not booked, sent out another request today. 05/01/23: Daughter requested this visit as pt was noted to accumulate more fluid in the lungs based on her most recent visit to [facility] for paracentesis. Pt reports somewhat pronounced shortness of breath on activity but no orthopnea. Does not think her activity levels are all that affected despite this. No abd pain, chest pain, cough, fever. Current meds: furosemide 40 spironolactone 100 (increased from 50 two weeks ago) propranolol 30 bid lactulose titrated to 2-3 BMs 05/21/23: Pt's daughter requested to follow up after EGD/colo was canceled by pre-op anesthesia a day before her procedures were scheduled. Were told that due to pleural effusion, was high risk for periprocedural anesthesia complications. Procedure postponed to Jun. Has been seen by pulm - diuretics as per our office. US liver results were already reviewed with the daughter. Salt indiscretion still + camila at dinner time. Daughter working on getting meals on wheels for dinner time as well (already set up for lunch) Current meds: furosemide 60 spironolactone 150 propranolol 30 bid lactulose titrated to 2-3 BMs 06/17/24: Pt was lost to follow up. Daughter reports they were frustrated that Catherine was not being put on the transplant list and therefore did not want to follow up there. However is planning to go to [facility] for next appt in Jul. In the meantime, Catherine has had multiple admissions to [facility]. Most recently was admitted last week for encephalopathy possibly UTI. Before that in March had SBP. Daughter has concerns re Catherine's overall cognitive decline. Is frequently disoriented and confused, forgetful. She is unsure if this is due to spectrum of HE vs worsening dementia. Pt has not had neurological or geriatric assessment for cognitive impairment. Current meds: Furosimide 40mg BID Propranolol 30mg BID Spironolactone 100mg DAILY Lactulose 30 TID Bactrim once daily for SBP prophylaxis. Is overdue on HCC screening and endoscopy. [facility] Medical History Cirrhosis of liver with ascites Diabetes Esophageal varices determined by endoscopy Hypertension Parkinson disease Surgical History Hx of esophagogastroduodenoscopy Hx of colonoscopy Family History Father Colon cancer Mother Diabetes Colon polyps Daughter Lupus Social History Household Members: Children Housing: House Housing Other:: Duplex Are you a primary acute care physician to a significant other at home: No Do you presently have visiting nurse or other home services: No Alcohol intake: former Patient Tobacco Use Status: Former Tobacco user service: No Current occupational status: unemployed and disabled Review of Systems Const All systems reviewed & are unremarkable except as noted in HPI and below Physical Exam Vital Signs: Last Vital Signs Pulse 72 06/17/24 13:07 BP 107/55 L 06/17/24 13:07 BMI result Body Mass Index 27.8 Appears older than stated age NAD Abd soft, nontender, nondistended No asterixis Unable to carry out 2 step commands. Unable to draw clock face. Assessment & Plan Assessment & Plan (1) Cirrhosis of liver with ascites: Code(s): K74.60 - Unspecified cirrhosis of liver; R18.8 - Other ascites Category: Medical (2) Esophageal varices determined by endoscopy: Code(s): I85.00 - Esophageal varices without bleeding Category: Medical (3) buttermaker continuous churn current use of diuretic: Code(s): Z79.899 - Other surfacing technician (current) drug therapy Category: Medical (4) Pleural effusion associated with hepatic disorder: Code(s): K76.9 - Liver disease, unspecified; J91.8 - Pleural effusion in other conditions classified elsewhere Category: Medical (5) Hydrothorax: Code(s): J94.8 - Other specified pleural conditions Category: Medical (6) Hepatic encephalopathy: Code(s): K76.82 - Hepatic encephalopathy Category: Medical (7) Personal history of colonic polyps: Code(s): Z86.010 - Personal history of colonic polyps Category: Medical (8) Fall: Code(s): W19.XXXA - Unspecified fall, initial encounter Category: Medical (9) Cognitive and behavioral changes: Code(s): R41.89 - Other symptoms and signs involving cognitive functions and awareness; R46.89 - Other symptoms and signs involving appearance and behavior Category: Medical Plan Decompensated QURESHI cirrhosis -MELD-Na 17, Child Class B -ascites -hydrothorax -hepatic encephalopathy -varices-on propanolol for primary prevention Was lost to follow up. Has had multiple hospitalisation in [facility] in interim for weakness, ascites, SBP, hepatic encephalopathy. Per daughter, didnt wish to follow up unless was being placed on transplant list. Today, also very concerned with Catherine's cognitive decline. Was unable to carry out 2 step commands or draw a clock face. Will refer to Neuro. 1. Ascites/pleural effusion: No obv ascites on exam. - Cont lasix 40 and zachariah 100. - Salt restriction again re-emphasized - BMP today 2. Hepatic encephalopathy: None on exam today but had admission to [facility] for this earlier this year. Cont Lactulose titrated to 2-3 BMs pr day. 3. ? Dementia: cognitive impairment appears to be in addition to underlying HE. NEuro referral placed. 4. Primary prophylaxis for variceal hemorrhage: Cont propranolol 30 BID. Overdue for EGD - requested to be rebooked. 5. HCC screening: Overdue for HCC screening. US ABd ordered 6. Nutrition: Advised 2 g sodium restriction. Patient to not restrict protein intake. Add nighttime snack. 7. Avoid NSAIDs. Tylenol is okay for pain control. 8. Personal history of polyps: [place] to be rebooked (prev canceled for various reasons x 2) 9. Transplant candidacy: decomp cirrhosis - seeing [facility] transplant hep. Repeat MELD labs ordered. Close follow up in 4 weeks Orders: Orders Complete Blood Count no Diff 06/17/24 R18.8 - Other ascites Comprehensive Met. Panel 06/17/24 R18.8 - Other ascites Prothrombin Time INR 06/17/24 R18.8 - Other ascites US abdomen complete 06/19/24 R18.8 - Other ascites Referrals Neurology Referral R41.89 - Other symptoms and signs involving cognitive functions and awareness, R46.89 - Other symptoms and signs involving appearance and behavior Coding Level of Care Code Est Pt Level 5 (10613) Diagnoses Cirrhosis of liver with ascites K74.60; R18.8 Esophageal varices determined by endoscopy I85.00 prison current use of diuretic Z79.899 Pleural effusion associated with hepatic disorder K76.9; J91.8 Hydrothorax J94.8 Hepatic encephalopathy K76.82 Personal history of colonic polyps Z86.010 Fall W19.XXXA Cognitive and behavioral changes R41.89; R46.89
== END 2024-06-17 13:56 | disposition home or self-care (01) ==
PROVIDERS: PCP Registered Nurse; Visit Provider Internal Medicine
DX: K74.60 Unspecified cirrhosis of liver (principal); R18.8 Other ascites; I85.00 Esophageal varices without bleeding; Z79.899 Other long term (current) drug therapy; J91.8 Pleural effusion in other conditions classified elsewhere; J94.8 Other specified pleural conditions; K76.82 Hepatic encephalopathy; Z86.010 Personal history of colon polyps; W19.XXXA Unspecified fall, initial encounter; R41.89 Other symptoms and signs involving cognitive functions and awareness; R46.89 Other symptoms and signs involving appearance and behavior
CPT/HCPCS: 99214

== ENCOUNTER 2024-06-19 10:21 | Outpatient (REF) | payer MEDICAID, SELFPAY ==
--- NOTE | ~2024-06-19 | US_ITS ---
EXAMINATION: US ABDOMEN COMPLETE CLINICAL INFORMATION: Other ascites. COMPARISON: Ultrasound abdomen 05/09/2023 and 11/06/2019. MR abdomen 11/20/2019. CT abdomen and pelvis 01/25/2017. TECHNIQUE: Real-time imaging of the abdominal viscera. Limited visualization due to bowel gas. FINDINGS: PANCREAS: Limited visualization of pancreatic tail and head. Imaged portion of pancreatic body is unremarkable. ABDOMINAL AORTA: Limited visualization. Imaged portions of distal abdominal aorta are within normal limits in caliber. INFERIOR VENA CAVA: Visualized portions are normal. LIVER: Increased hepatic parenchymal heterogeneity and echogenicity could be associated with hepatocellular disease as well as nodular hepatic contour, compatible with previously stated history of cirrhosis. Substantially limited visualization. Incidental note of what appears to be a recanalized umbilical vein with abdominal wall varices better characterized on MRI abdomen of 11/20/2019. GALLBLADDER: Surgically absent. COMMON BILE DUCT: Normal in caliber measuring 0.24 cm in diameter. RIGHT KIDNEY: No hydronephrosis. No renal calculi. Limited visualization. The kidney measures 12.1 cm in maximum dimension. LEFT KIDNEY: No hydronephrosis. No renal calculi. Limited visualization. The kidney measures 11.8 cm in maximum dimension. SPLEEN: Splenomegaly. The spleen measures 16.6 cm in maximum dimension. FREE FLUID: None. US/US abdomen complete IMPRESSION: 1. Increased hepatic parenchymal heterogeneity and echogenicity could be associated with hepatocellular disease as well as nodular hepatic contour, compatible with previously stated history of cirrhosis. Substantially limited visualization. 2. Splenomegaly. 3. Gallbladder surgically absent. Electronically signed by: Kelle Reid MD 06/23/2024 01:46 PM EDT
== END 2024-06-19 10:22 | disposition home or self-care (01) ==
LOC: HO.US 10:21
PROVIDERS: PCP Registered Nurse; Visit Provider Internal Medicine
DX: R18.8 Other ascites (principal)
CPT/HCPCS: 76700

== ENCOUNTER 2024-08-14 12:01 | Emergency (ER) | payer MEDICAID, SELFPAY ==
--- NOTE | ~2024-08-14 | XR_ITS ---
EXAMINATION: XR HUMERUS, LEFT CLINICAL INFORMATION: Status post fall. COMPARISON: None available. TECHNIQUE: AP and lateral views of the left humerus. FINDINGS: Cortical irregularity in the greater tuberosity. Diaphysis and distal metaphysis and epiphysis are intact. XR/XR humerus LT IMPRESSION: Questionable fracture greater tuberosity left humerus. Electronically signed by: Craig Rodrigues MD 08/14/2024 02:23 PM EDT
--- NOTE | ~2024-08-14 | XR_ITS ---
EXAMINATION: XR ELBOW, LEFT CLINICAL INFORMATION: Extensive post fall. COMPARISON: None available. TECHNIQUE: AP, lateral, and oblique views of the left elbow. FINDINGS: No acute cortical disruption or malalignment. No joint effusion. Well-corticated calcification at the olecranon/triceps tendon insertion. XR/XR elbow LT min 3V IMPRESSION: No acute fracture or dislocation. Electronically signed by: Craig Rodrigues MD 08/14/2024 02:28 PM EDT
--- NOTE | ~2024-08-14 | XR_ITS ---
EXAMINATION: XR SHOULDER, LEFT CLINICAL INFORMATION: Pain in left shoulder following fall today COMPARISON: None available. TECHNIQUE: AP external rotation, Grashey, scapular Y, and axillary views of the left shoulder. FINDINGS: There is cortical irregularity with possible evaluation fracture at the greater tuberosity. There is no fracture through the humeral neck. There is possible undisplaced fracture through the greater tuberosity. XR/XR shoulder LT min 2V IMPRESSION: Small avulsion fracture at the greater tuberosity and possible undisplaced fracture through the greater tuberosity. Correlate with CT scan if clinically warranted. Electronically signed by: Jose F Michael MD 08/14/2024 03:59 PM EDT
[2024-08-14 12:08] VITALS: BP 148/64; PULSE 56; O2SAT 97
[2024-08-14 12:56] VITALS: BP 134/64; PULSE 82; RESP 16; TEMP 37; O2SAT 98
[2024-08-14 13:15] VITALS: BP 126/67; PULSE 80; RESP 18; TEMP 36.6; O2SAT 100; BMI 31.1
--- NOTE | 2024-08-14 14:15 | ED.FALL ---
HPI - Fall General Chief Complaint: Fall Stated Complaint: fall Time Seen by Provider: 08/14/24 12:33 Source: patient, EMS, RN notes reviewed and old records reviewed Mode of arrival: EMS History of Present Illness ED Provider: Brenda Quiroz PA-C HPI Narrative: 64-year-old female with a past medical history of cirrhosis with ascites, Parkinson's, HTN, diabetes, esophageal varices, diabetes, presenting to the ED via EMS complaining of left shoulder and elbow pain s/p mechanical trip and fall landing on left shoulder after missing last step of stair case. Denies head trauma or LOC. patient unsure if she takes anticoagulation. Denies neck/back pain, CP/SOB, abdominal pain, LE pain. Denies symptoms prior to fall Related Data Home Medications ?Medication ?Instructions ?Recorded ?Confirmed benztropine 0.5 mg tablet 0.5 mg PO BID 08/17/20 03/05/23 haloperidol 5 mg tablet 5 mg PO BEDTIME 08/17/20 03/05/23 insulin lispro 100 unit/mL See Protocol subcut TID 08/17/20 03/23/22 subcutaneous pen (Humalog KwikPen (U-100) Insulin) flash glucose sensor (FreeStyle #1 ea 05/01/23 Gurpreet 2 Sensor kit) insulin degludec 200 unit/mL (3 56 unit subcut QPM 05/01/23 mL) subcutaneous pen (Tresiba FlexTouch U-200 insulin) blood-glucose meter (FreeStyle #1 ea 06/17/24 Mathews Lite kit) furosemide 40 mg tablet 40 mg PO BID 06/17/24 spironolactone 100 mg tablet 100 mg PO DAILY 06/17/24 Previous Rx's ?Medication ?Instructions ?Recorded blood pressure monitor (Blood #1 ea 10/29/22 Pressure Kit) lactulose 10 gram/15 mL (15 mL) 20 g (30 mL) PO TID 90 days #8,100 07/17/23 oral solution mL propranolol 10 mg tablet 30 mg (3 x 10 mg) PO BID #168 tabs 02/05/24 Allergies Allergy/AdvReac Type Severity Reaction Status Date / Time Penicillins Allergy Unknown HIVES Verified 08/14/24 13:18 Review of Systems Review of Systems: Yes all other systems are reviewed and are negative Constitutional: Constitutional: Reports as per [facility] Past Medical History Attestation statement: The following information was validated with the patient. Source: old records reviewed Medical History Esophageal varices determined by endoscopy Cirrhosis of liver with ascites Parkinson disease Hypertension Diabetes Surgical History Hx of esophagogastroduodenoscopy Hx of colonoscopy Family History Family History Father Colon cancer Mother Diabetes Colon polyps Daughter Lupus Social History Social History Household Members: Children Housing: House Housing Other:: Duplex Are you a primary daytime caregiver to a significant other at home: No Do you presently have visiting nurse or other home services: No Alcohol intake: former Patient Tobacco Use Status: Former Tobacco user Advance Directives: Yes Advance Directives Information Provided: Yes Advance Directives on File: No service: No Current occupational status: unemployed and disabled Physical Exam Vital Signs: Vital Signs: Last Vital Signs Temp 97.0 F 08/14/24 15:45 Pulse 79 08/14/24 15:45 Resp 14 08/14/24 15:45 BP 117/60 08/14/24 15:45 Pulse Ox 100 08/14/24 15:45 O2 Del Method Room Air 08/14/24 15:45 BMI result Body Mass Index 31.1 Const: General: cooperative, healthy appearing and no acute distress Orientation/consciousness: patient oriented x3 Limitations: no limitations HEENT: Head: Yes normal to inspection and Yes atraumatic Ears: hearing grossly normal bilaterally General nose exam: Normal external nose present Face and sinus: Yes normal facial exam Mouth: Normal oral and palatal mucosa present Eyes: General: appearance normal, both eyes and all related structures Pupils: Equal, round and reactive pupils present EOM: EOMs intact bilaterally Neck: Neck: Yes normal visual inspection and Yes no meningeal signs Resp: Effort & Inspection: normal respiratory effort and no respiratory distress Auscultation: clear to auscultation bilaterally Cardio: Rate: regular rate Heart sounds: S1 normal heart sound present and S2 normal heart sound present Peripheral pulses: Peripheral pulses 2+ throughout GI: Inspection: Yes normal to inspection Palpation (GI): Soft to palpation, nontender, no guarding and not rigid : General: Yes no CVA tenderness Back/Spine/Pelvis: Other: No midline cervical/thoracic/lumbar spinous tenderness/step-off or deformity Back: no CVA tenderness Skin: Rashes: no rashes Wounds: no wounds Neuro: General: patient oriented x3, tone normal, moves all extremities, no meningeal signs, no focal motor deficits and CN's II-XI intact bilaterally Cranial nerves: Yes CN's II-XII intact bilaterally and Yes Equal, round and reactive pupils present Extrem: Other: Left shoulder with appreciable swelling. No deformity. Limited ROM secondary to pain. + tenderness to palpation to shoulder and proximal humerus. Left elbow without deformity. Mildly tender. Limited flexion and extension secondary to pain. Neurovascularly intact distally. Course Course Course Narrative: XR elbow LT min 3V IMPRESSION: No acute fracture or dislocation. XR humerus LT IMPRESSION: Questionable fracture greater tuberosity left humerus. -1500--ED care transferred to [facility] Bill pending XRs and dispo per results X-ray of shoulder agreed likely fracture of the greater tuberosity nondisplaced and patient is given a sling and will follow with orthopedist Medications Administered Discontinued Medications Generic Name Dose Route Start Last Admin Trade Name Freq PRN Reason Stop Dose Admin Oxycodone HCl 5 mg 08/14/24 14:52 08/14/24 15:23 Oxycodone Hcl Immed Release 5 Mg Tablet PO 08/14/24 14:53 5 mg ONCE ONE Administration Medical Decision Making Medical Decision Making [facility] Narrative: 64-year-old female with a past medical history of cirrhosis with ascites, Parkinson's, HTN, diabetes, esophageal varices, diabetes, presenting to the ED via EMS complaining of left shoulder and elbow pain s/p mechanical trip and fall landing on left shoulder after missing last step of stair case. On exam vital signs stable, NAD, nontoxic appearing physical exam as noted above with left shoulder/proximal humerus and elbow tenderness with limited ROM. No midline spinous tenderness or red flag symptoms. No focal neuro deficits. Concern for fractures vs strain. Low suspicion for ICH, intrathoracic or intra-abdominal bleeding Per chart review does not appear patient is on anticoagulation Plan: X-rays Please refer to course for remaining clinical decision making, interpretation of labs/imaging results, and discussions with consultants and/or family members. Differential Diagnosis Differential Diagnoses: The differential diagnosis associated with the presentation includes As above Admission/Observation Consideration of admission/observation: Escalation of care including admission/observation considered Lab Data MDM Lab Attestation statement: I reviewed the patient's lab results. Independent Interpretation I performed an independent interpretation of an: Plain X-Ray Radiology Impression Discussion of test interpretation with radiology: I have reviewed the radiologist's reading. Independent Historian Clinical information obtained from an independent historian. History obtained from or confirmed by: EMS External Record Review External record reviewed: Inpatient record, Office record, Outpatient record, Prior outpatient labs, Prior outpatient radiology, Primary care record and Outside ED record Tests considered The following testing was considered but not selected: As above Prescription Management I considered prescription management with: Pain Medication Chronic Conditions Patient?s care impacted by: Other Discharge Plan Discharge Clinical Impression: Closed fracture of greater tuberosity of humerus Patient Disposition: Home, Self-Care Instructions: Proximal Humerus Fracture (ED) Additional Instructions: You have a fracture of your humeral head You need to wear sling at all times, ice You need to follow-up with financial retirement plan specialist in 1 week, call to make an appointment If pain persists or worsens/becomes unbearable return to the ED Prescriptions: No Action lactulose 10 gram/15 mL (15 mL) solution 20 g PO TID 90 Days Qty: 8100 0RF propranolol 10 mg tablet 30 mg PO BID Qty: 168 0RF benztropine 0.5 mg Tablet 0.5 mg PO BID haloperidol 5 mg Tablet 5 mg PO BEDTIME insulin lispro [Humalog KwikPen Insulin] 100 unit/mL Insulin Pen See Protocol SUBCUT TID Protocol: Insulin Correction Scale Less than or equal to 110 ---- Give (units): 0 111 to 150 Give (units): 0 151 to 200 Give (units): 2 201 to 250 Give (units): 4 251 to 300 Give (units): 6 301 to 350 Give (units): 8 Greater than 350 Give (units): 10 Call MD if Blood Glucose > : 350 Patient Comments: pt has MD sliding scale Rx Instructions: sliding scale (DME) blood pressure monitor [Blood Pressure Kit] Kit See Rx Instructions .Route Qty: 1 0RF Rx Instructions: As directed insulin degludec [Tresiba FlexTouch U-200] 200 unit/mL (3 mL) insulin pen 56 unit subcut QPM (DME) FreeStyle Gurpreet 2 Sensor Kit See Rx Instructions .ROUTE Q2W Qty: 1 Rx Instructions: As directed furosemide 40 mg tablet 40 mg PO BID spironolactone 100 mg tablet 100 mg PO DAILY (DME) blood-glucose meter [FreeStyle Mathews Lite] Kit See Rx Instructions .ROUTE QID Qty: 1 Rx Instructions: As directed Referrals: [facility] [place] [facility] [Provider Group] - 5 days Print Language: Nicaraguan
[2024-08-14] MEDS: oxyCODONE HCl Immed Release 5 MG TABLET PO (15:23)
[2024-08-14 15:45] VITALS: BP 117/60; PULSE 79; RESP 14; TEMP 36.1; O2SAT 100
[2024-08-14 16:31] VITALS: BP 117/60; PULSE 79; RESP 14; TEMP 36.1; O2SAT 100
== END 2024-08-14 16:35 | disposition home or self-care (01) ==
PROVIDERS: Emergency Provider Emergency Medicine Emergency Medical Services; PCP Registered Nurse
DX: S42.252A Displaced fracture of greater tuberosity of left humerus, initial encounter for closed fracture (principal); M25.512 Pain in left shoulder; I10 Essential (primary) hypertension; W10.8XXA Fall (on) (from) other stairs and steps, initial encounter; Y93.89 Activity, other specified; Y92.89 Other specified places as the place of occurrence of the external cause; Y99.8 Other external cause status; Z79.899 Other long term (current) drug therapy
CPT/HCPCS: 73030; 73060; 73080; 99284

== ENCOUNTER → 2024-08-14 12:57 | Outpatient (BNV) | payer MEDICAID, SELFPAY | PROVIDERS: Emergency Provider Emergency Medicine Emergency Medical Services; PCP Registered Nurse; Visit Provider Radiology Diagnostic Radiology | DX: M25.512 Pain in left shoulder (principal) | CPT/HCPCS: 73060; 73080 ==

== ENCOUNTER 2024-08-31 11:49 | Outpatient (REF) | payer MEDICAID, SELFPAY ==
[2024-08-31 13:09] LABS: MANUAL DIFF FLAG NO
[2024-08-31 13:27] LABS: Basophils Percent Auto 0.3 % (0-2); Eosinophils Absolute Auto 0.3 X10*3/uL (0.0-0.4); Eosinophils Percent Auto 4.5 % (0-4); Hematocrit 26.7 % (37.0-47.0); Imm Gran Abs Auto 0.04 X10*3/uL (0.00-0.03); Imm Gran Pct Auto 0.7 % (0.0-0.4); Lymphocytes Absolute Auto 0.6 X10*3/uL (1.2-4.9); Lymphocytes Percent Auto 9.4 % (20-40); Mean Corpuscular HGB Conc 33.7 g/dl (31.0-35.0); Mean Corpuscular Hemoglobin 30.1 pg (27.0-33.0); Mean Corpuscular Volume 89.3 fL (80.0-98.0); Mean Platelet Volume 11.4 fL (9.4-12.3); Monocytes Absolute Auto 0.5 X10*3/uL (0.1-1.2); Monocytes Percent Auto 8.2 % (2-11); Neutrophils Absolute Auto 4.5 x10*3/uL (2.0-8.3); Neutrophils Percent Auto 76.9 % (45-73); Red Blood Count 2.99 X10*6/uL (4.20-5.50); Red Cell Distribution Width 14.7 % (11.0-16.0); White Blood Count 5.8 X10*3/uL (4.8-10.8)
[2024-08-31 13:29] LABS: Platelet Count 51 X10*3/uL (160-400)
[2024-08-31 14:01] LABS: Alanine Aminotransferase 29 U/L (0-31); Albumin Level 2.7 g/dL (3.5-5.0); Alkaline Phosphatase 206 U/L (39-117); Anion Gap 12 (12-20); Aspartate Amino Transferase 71 U/L (5-31); Bilirubin Total 1.3 mg/dL (0.0-1.0); Blood Urea Nitrogen 34 mg/dL (9-16); Calcium 8.1 mg/dL (8.4-10.2); Carbon Dioxide 19 mmol/L (22-29); Chloride 113 mmol/L (96-108); Cholesterol 132 mg/dL (<200); Estimated Glomerular Filt Rate > 60; Glucose Random 219 mg/dL (60-115); HDL Cholesterol 48 mg/dL (>40); LDL Cholesterol Calculated 74 mg/dL (<100); Potassium 4.7 mmol/L (3.3-5.1); Sodium 139 mmol/L (135-145); Total Protein 6.6 g/dL (6.5-8.0); Triglycerides 53 mg/dL (<150)
== END 2024-08-31 11:50 | disposition home or self-care (01) ==
LOC: HO.HHCL 11:49
PROVIDERS: Internal Medicine Gastroenterology; Visit Provider Registered Nurse
DX: R18.8 Other ascites (principal); K74.60 Unspecified cirrhosis of liver; E11.9 Type 2 diabetes mellitus without complications; Z79.4 Long term (current) use of insulin
CPT/HCPCS: 36415; 80053; 80061; 85025

== ENCOUNTER 2024-09-03 12:38 | Outpatient (REF) | payer MEDICAID, SELFPAY | END 2024-09-03 12:39 | disposition home or self-care (01) | LOC: HO.HOSX 12:38 | PROVIDERS: Visit Provider Physician Assistant | DX: M25.512 Pain in left shoulder (principal); S42.202A Unspecified fracture of upper end of left humerus, initial encounter for closed fracture | CPT/HCPCS: 73030; 99212 ==

== ENCOUNTER 2024-09-03 14:07 | Outpatient (AMB) | payer MEDICAID, SELFPAY ==
--- NOTE | 2024-09-03 14:25 | MHC.OFFVIS ---
Intake Visit Reasons: FC- left shoulder greater tuberosity fx Intake Note: Catherine is a 64 year old female who presents today for a evaluation of her left shoulder/elbow fx, about 3 weeks ago. Patient reports she tripped and fell landing on left shoulder after missing last step of stair case. She mentions her ROM is limited and not able to move her arm much. Patient does have some bruising on her medial bicep. Allergies Penicillins Allergy (Unknown, Verified 09/03/24 14:32) HIVES HPI HPI FC- left shoulder greater tuberosity fx: Details: 64-year-old female, who is Luxembourger speaking, presents in the office today, as a new patient, for an evaluation of a fracture of greater tuberosity of the left humerus. The patient presented to the ED via EMS on 08/14/24 status post a mechanical trip and fall, resulting in landing on the left shoulder after missing the last step on her staircase. X-rays of the left elbow, shoulder and humerus were obtained in the ER. She was recommended to use the sling and was advised to use icing for pain relief. She was referred to [facility] for further evaluation and treatment. While in the office today, the patient reports limited ROM and is unable to move her left upper extremity much. She reports mild bruising along the left bicep. The patient has a past medical history of cirrhosis with ascites, Parkinson's, hypertension , diabetes, esophageal varices, and diabetes mellitus. [facility] Medical History Esophageal varices determined by endoscopy Cirrhosis of liver with ascites Parkinson disease Hypertension Diabetes Surgical History Hx of esophagogastroduodenoscopy Hx of colonoscopy Family History Father Colon cancer Mother Diabetes Colon polyps Daughter Lupus Social History Household Members: Children Housing: House Housing Other:: Duplex Are you a primary long term care social worker to a significant other at home: No Do you presently have visiting nurse or other home services: No Alcohol intake: former Patient Tobacco Use Status: Former Tobacco user service: No Current occupational status: unemployed and disabled Review of Systems Const All systems reviewed & are unremarkable except as noted in HPI and below Physical Exam Const General: cooperative and no acute distress Orientation/consciousness: patient oriented x3 Resp Effort & Inspection: normal respiratory effort and able to speak in complete sentences Cardio Peripheral pulses: Peripheral pulses 2+ throughout Skin General skin exam: no rashes or lesions noted Neuro General: patient oriented x3 Extrem Other: Left upper extremity: Ecchymosis extending along the bicep to the elbow. Able to perform elbow flexion, extension, pronation and supination with pain at the shoulder. Able to perform full wrist flexion and extension. Able to extend all the digits and make a closed fist. Able to perform thumbs up without deficit. Sensation is intact. Radial pulse is intact. Office Procedures AMB Fracture Care Fracture Billing Code: Fracture Billing Code Assessment & Plan Assessment & Plan (1) Closed fracture of left proximal humerus: Code(s): S42.202A - Unspecified fracture of upper end of left humerus, initial encounter for closed fracture Category: Medical Plan 64-year-old female, who is Luxembourger speaking, presents in the office today, as a new patient, for an evaluation of a fracture of greater tuberosity of the left humerus. The patient presented to the ED via EMS on 08/14/24 status post a mechanical trip and fall, resulting in landing on the left shoulder after missing the last step on her staircase. X-rays of the left elbow, shoulder and humerus were obtained in the ER. She was recommended to use the sling and was advised to use icing for pain relief. She was referred to [facility] for further evaluation and treatment. While in the office today, the patient reports limited ROM and is unable to move her left upper extremity much. She reports mild bruising along the left bicep. The patient has a past medical history of cirrhosis with ascites, Parkinson's, hypertension , diabetes, esophageal varices, and diabetes mellitus. The patient presented to the office without her sling. Her caregiver believed the sling would cause stiffness. I did educate the patient as well as her granddaughter, who was with her for the visit today, that the sling is for comfort and she should be in the sling when she is outside the house for protection. She can come out of the sling at home to work on elbow, hand, and wrist ROM exercises, which was also demonstrated in the office today. The patient has home physical therapy services who have been working with her on what sounds like pendulum exercises. I would like them to continue to work on pendulum exercises as well as elbow, hand, and wrist ROM. I have supplied my business card to the patient and her granddaughter for the therapist to contact me if they have any questions or concerns. Follow-up will be in 4 weeks with repeat x-rays, or sooner if needed. X-rays of the left upper extremity, which were obtained while in the office today and were reviewed by me, Valerie Duarte PA-C, revealed: Redemonstration of comminuted left proximal humerus fracture. X-rays of the left shoulder, obtained on 08/14/24, revealed: Small avulsion fracture at the greater tuberosity and possible undisplaced fracture through the greater tuberosity. Correlate with CT scan if clinically warranted. X-rays of the left elbow, obtained on 08/14/24, revealed: No acute fracture or dislocation. Orders: Orders XR shoulder LT min 2V Today M25.519 - Pain in unspecified shoulder Patient Instructions: Scribed by Jaci Burgos hospital medical assistant, for Valerie Duarte PA-C on 09/03/24 at 2:58 pm EST. Coding Level of Care Code New Pt Level 4 (92926) Diagnoses Closed fracture of left proximal humerus S42.202A CPT Codes Fracture Care - Fracture Billing Code: Fracture Billing Code ([id number])
== END 2024-09-03 14:48 | disposition home or self-care (01) ==
PROVIDERS: PCP Registered Nurse; Visit Provider Physician Assistant
DX: S42.202A Unspecified fracture of upper end of left humerus, initial encounter for closed fracture (principal)
CPT/HCPCS: 99204

== ENCOUNTER 2024-10-01 12:36 | Outpatient (REF) | payer MEDICAID, SELFPAY ==
--- NOTE | ~2024-10-01 | XR_ITS ---
ADDENDUM #1 Results Acknowledgement: Exam results confirmed on both exams for this patient at 2:57 PM by Elisha Mai, business affairs manager/nurse. Dinorah Samson, 11/09/2024 2:59 PM Electronically signed by: Kelle Reid MD 11/10/2024 06:40 AM EST RP ORIGINAL REPORT EXAMINATION: XR LEFT SHOULDER CLINICAL INFORMATION: Pain in unspecified shoulder M25.519. COMPARISON: XR Left shoulder 09/03/2024 and 08/14/2024, LEFT humerus 08/14/2024. TECHNIQUE: Three views of the left shoulder. FINDINGS: Redemonstration of a comminuted, mildly displaced fracture along the humeral head, greater tuberosity. Fracture lines are still visible, although there is some evidence of bridging bone formation. Mild degenerative changes in the acromioclavicular joint. Dense 9 mm nodule overlying the partially imaged LEFT mid lung was better characterized on chest radiograph of 08/23/2023, possibly increased in size. Dedicated chest radiographs recommended for further evaluation. IMPRESSION: 1 Redemonstration of a comminuted, mildly displaced fracture along the humeral head, greater tuberosity. Fracture lines are still visible, although there is some evidence of bridging bone formation. 2. Dense 9 mm nodule overlying the partially imaged LEFT mid lung was better characterized on chest radiograph of 08/23/2023, possibly increased in size. Dedicated chest radiographs recommended for further evaluation. This study was presented to mt on November 03, 2024 for interpretation. [facility] staff will provide results to referring provider at this time. Electronically signed by: Kelle Reid MD 11/03/2024 12:56 PM EST RP XR/XR shoulder LT min 2V IMPRESSION: 1 Redemonstration of a comminuted, mildly displaced fracture along the humeral head, greater tuberosity. Fracture lines are still visible, although there is some evidence of bridging bone formation. 2. Dense 9 mm nodule overlying the partially imaged LEFT mid lung was better characterized on chest radiograph of 08/23/2023, possibly increased in size. Dedicated chest radiographs recommended for further evaluation. This study was presented to me on November 03, 2024 for interpretation. [facility] staff will provide results to referring provider at this time. Electronically signed by: Kelle Reid MD 11/03/2024 12:56 PM YOLANDA
== END 2024-10-01 12:37 | disposition home or self-care (01) ==
LOC: HO.HOSX 12:36
PROVIDERS: PCP Registered Nurse; Visit Provider Physician Assistant
DX: M25.512 Pain in left shoulder (principal); S42.202D Unspecified fracture of upper end of left humerus, subsequent encounter for fracture with routine healing
CPT/HCPCS: 73030; 99212

== ENCOUNTER 2024-10-01 12:36 | Outpatient (AMB) | payer MEDICAID, SELFPAY ==
--- NOTE | 2024-10-01 13:54 | MHC.OFFVIS ---
Intake Visit Reasons: OV - left shoulder greater tuberosity fx Intake Note: Catherine is a 64 year old female who presents today for a evaluation of her left shoulder/elbow fx, about 3 weeks ago. Patient reports she is still having pain. Her ROM is still a bit limited. PT has been coming to her house but they haven't been coming as often anymore. Allergies Penicillins Allergy (Unknown, Verified 10/01/24 13:58) HIVES HPI HPI OV - left shoulder greater tuberosity fx: Details: 64-year-old female, who is German speaking, presents in the office today for a follow-up of a fracture of the greater tuberosity of the left humerus, which occurred on 08/14/24. The patient had a mechanical trip and fall, resulting in landing on the left shoulder after missing the last step on her staircase. I last saw the patient in the office on 09/03/24, when she was recommended to wear the sling when she is outside the house for protection. She was advised to come out of the sling at home to work on elbow, hand, and wrist ROM exercises that were demonstrated in the office at that encounter. She has home physical therapy and was encouraged to continue to work on pendulum exercises. While in the office today, the patient reports experiencing persistent left upper extremity pain and limited ROM. She has home physical therapy; however, they are not coming as often recently. [facility] Medical History Esophageal varices determined by endoscopy Cirrhosis of liver with ascites Parkinson disease Hypertension Diabetes Surgical History Hx of esophagogastroduodenoscopy Hx of colonoscopy Family History Father Colon cancer Mother Diabetes Colon polyps Daughter Lupus Social History Household Members: Children Housing: House Housing Other:: [employer] Are you a primary child care education coordinator to a significant other at home: No Do you presently have visiting nurse or other home services: No Alcohol intake: former Patient Tobacco Use Status: Former Tobacco user service: No Current occupational status: unemployed and disabled Review of Systems Const All systems reviewed & are unremarkable except as noted in HPI and below Physical Exam Const General: cooperative, healthy appearing and no acute distress Resp Effort & Inspection: normal respiratory effort and able to speak in complete sentences Cardio Rate: regular rate Peripheral pulses: Peripheral pulses 2+ throughout GI Palpation (GI): Soft to palpation Skin Lesions: no lesions Rashes: no rashes Extrem Other: Left shoulder: Full flexion and abduction to 45 degrees. External rotation to neutral. NVI. Assessment & Plan Assessment & Plan (1) Closed fracture of left proximal humerus: Code(s): S42.202A - Unspecified fracture of upper end of left humerus, initial encounter for closed fracture Category: Medical Plan Ms. Stern is a 64-year-old female, who is German speaking, presents in the office today for a follow-up of a fracture of the greater tuberosity of the left humerus, which occurred on 08/14/24. The patient had a mechanical trip and fall, resulting in landing on the left shoulder after missing the last step on her staircase. I last saw the patient in the office on 09/03/24, when she was recommended to wear the sling when she is outside the house for protection. She was advised to come out of the sling at home to work on elbow, hand, and wrist ROM exercises that were demonstrated in the office at that encounter. She has home physical therapy and was encouraged to continue to work on pendulum exercises. While in the office today, the patient reports experiencing persistent left upper extremity pain and limited ROM. She has home physical therapy; however, they are not coming as often recently. The patient will continue working with physical therapy on range of motion. The goal is to reach the top of her head for a shower, to reach her mouth to feed herself and behind her body for hygiene. Follow-up will be in 6 weeks with repeat x-rays, or sooner if needed. X-rays of the left shoulder, which were obtained while in the office today and were reviewed by me, Valerie Duarte PA-C, revealed: Routine healing proximal humerus fracture. Orders: Orders XR shoulder LT min 2V 10/01/24 M25.519 - Pain in unspecified shoulder Patient Instructions: Scribed by Jaci Burgos, medical claims examiner, for Valerie Duarte PA-C on 10/01/24 at 2:10 pm EST. Coding Level of Care Code Global (08945) Diagnoses Closed fracture of left proximal humerus S42.202
== END 2024-10-01 14:12 | disposition home or self-care (01) ==
PROVIDERS: PCP Registered Nurse; Visit Provider Physician Assistant
DX: S42.202A Unspecified fracture of upper end of left humerus, initial encounter for closed fracture (principal)
CPT/HCPCS: 99213

== ENCOUNTER 2024-11-18 15:19 | Outpatient (REF) | payer MEDICAID, SELFPAY ==
[2024-11-18 16:38] LABS: MANUAL DIFF FLAG NO
[2024-11-18 16:48] LABS: Basophils Percent Auto 0.5 % (0-2); Eosinophils Absolute Auto 0.1 X10*3/uL (0.0-0.4); Eosinophils Percent Auto 3.5 % (0-4); Hematocrit 25.1 % (37.0-47.0); Hemoglobin 8.4 g/dl (12.0-16.0); Imm Gran Abs Auto 0.02 X10*3/uL (0.00-0.03); Imm Gran Pct Auto 0.5 % (0.0-0.4); Lymphocytes Absolute Auto 0.5 X10*3/uL (1.2-4.9); Lymphocytes Percent Auto 12.6 % (20-40); Mean Corpuscular HGB Conc 33.5 g/dl (31.0-35.0); Mean Corpuscular Hemoglobin 27.8 pg (27.0-33.0); Mean Corpuscular Volume 83.1 fL (80.0-98.0); Mean Platelet Volume 10.9 fL (9.4-12.3); Monocytes Absolute Auto 0.3 X10*3/uL (0.1-1.2); Monocytes Percent Auto 6.9 % (2-11); Neutrophils Absolute Auto 3.1 x10*3/uL (2.0-8.3); Red Blood Count 3.02 X10*6/uL (4.20-5.50); Red Cell Distribution Width 15.1 % (11.0-16.0)
[2024-11-18 17:04] LABS: Alanine Aminotransferase 21 U/L (0-31); Albumin Level 2.6 g/dL (3.5-5.0); Alkaline Phosphatase 103 U/L (39-117); Anion Gap 11 (12-20); Aspartate Amino Transferase 42 U/L (5-31); Bilirubin Total 0.9 mg/dL (0.0-1.0); Blood Urea Nitrogen 20 mg/dL (9-16); Calcium 7.9 mg/dL (8.4-10.2); Carbon Dioxide 22 mmol/L (22-29); Chloride 108 mmol/L (96-108); Estimated Glomerular Filt Rate > 60; Glucose Random 293 mg/dL (60-115); Potassium 3.4 mmol/L (3.3-5.1); Sodium 138 mmol/L (135-145); Total Protein 7.1 g/dL (6.5-8.0)
[2024-11-18 17:09] LABS: Platelet Count 44 X10*3/uL (160-400)
--- OUTSIDE RECORDS SUMMARY | 2024-11-18 17:15 | XMS_ITS | Encounter Summary ---
Author Organization [employer] Address [address] [place] [address] Care Team Providers Care Brake Reliner Name Role Phone [facility] Primary Care Provider [phone] Andree Ulloa PharmD Unavailable [phone] Maude Dennis RN Unavailable [phone] Reason for Visit * Reason Comments Med Refill Encounter Details Date Type Department Care Team ([facility] st Contact Info) Description 10/03/2023 Refill [facility] [address] [place] [address] [facility], [facility] [address] [place] [address] Schizophrenia, unspecified type (CMS/HCC) Social History Tobacco Use Types Packs/Day Years Used Date Smoking Tobacco: Former Cigarettes Q uit: 1991 Passive Smoke Exposure: Never Smokeless Tobacco: Never Alcohol Use Standard Drinks/Week Comments Never 0 (1 standard drink = 0.6 oz pur e alcohol) Depression Answer Date Recorded Patient Health Questionnaire-9 Score 0 09/02/2023 Patient Health Questionnaire-9 Score 0 09/02/2023 Last PHQ-9: Questionnaire Data Not on file 1 11/02/2022 Housing Stability Answer Date Recorded What is your housing situation today? I have kimani kline 08/09/[address] you li ve. Do you have problems with any of the following? None of the above 08/09/2023 Food Insecurity Answer Date Recorded Within the past 12 months, y ou worried that your food would run out before you got money to buy more: Never True 08/09/2023 Within the past 12 months,th e food you bought just didn't last and you didn't have enough money to get more: Never True Transportation Answer Date Recorded In the past 12 months, has l ack of transportation kept you from medical appts, meetings, work or from getting things needed for daily living? No 08/09/2023 Utilities Answer Date Recorded In the past 12 months, has t he electric, gas, oil or water company threatened to shut off services in your home? No 08/09/2023 Depression Answer Date Recorded Patient Health Questionnaire-2 Score 0 09/02/2023 Comments Unknown Sex and Gender Information Value Date Recorded Sex Assigned at Female 08/20/2022 10:14 AM EDT Legal Sex Female 10:14 AM EDT Gender Identity Female 08/20/2022 10:14 AM EDT Sexual Orientation Straight 08/20/2022 10 :14 AM EDT documented as of this encounter Plan of Treatment Upcoming Encounters Date Type Department Care Team (Late st Contact Info) Description 12/14/2024 1:30 PM EST Office Visit [facility] [address] [place] [address] Ritesh, Virgen, OD [address] [place] [address] 12/18/2024 1:15 PM EST Office Visit [facility] [address] [place] [address] Susan, Ana, RESIDENTIAL REAL ESTATE ASSISTANT [address] [place] [address] documented as of this encounter Goals Goal Patient Goal Type Associated Problems Recent Progress Patient-Stated? Author Check your blood sugar as directed General On track( 023 4:12 PM EDT) No Jacob Llanos PharmD Note: Use CGM, ensuring sensor is scanned at least once every 8 hours to capture 24H data. Check BG manually, as directed. Take your medications every day Lifestyle Worsening( 4:12 PM EDT) No Jacob Llanos PharmD Hemoglobin A1c < 8 Result Component 7.6(11/11/202 4 11:08 AM EST) No Andree Ulloa, PharmD documented as of this encounter Visit Diagnoses Diagnosis Schizophrenia, unspecified type (CMS/HCC) documented in this encounter Additional Health Concerns Assessment Noted Time PHQ-9 Depression Total Score: 0 09/02/20 23 12:14 PM EST documented as of this encounter Care Teams Brake Reliner Relationship Specialty Start Date End Date Ana Davis RESIDENTIAL REAL ESTATE ASSISTANT [address] [place] [address] PCP - General Family Medicine 04/05/22 Andree Ulloa, PharmD [address] [place] [address] Pharmacist Internal Medicine 05/09/23 Maude Dennis RN [address] [place] [address] Landscape Management TechnicianCareer Services Officer 08/27/24 Flavia Segundo Television Cabinet FinisherCareer Services Officer 10/10/23 [employer] 08/14/24 Gabrielle Fitch Television Cabinet FinisherCareer Services Officer 11/05/24 documented as of this encounter
--- OUTSIDE RECORDS SUMMARY | 2024-11-18 17:15 | XMS_ITS | Clinical Summary ---
Author Organization [employer] Address [address] [place] [address] Care Team Providers Care Field Software Engineer Name Role Phone Ana Davis DIP PAINTER Primary Care Provider [phone] Andree Ulloa PharmD Unavailable [phone] Maude Dennis RN Unavailable Allergies Active Allergy Reactions Criticality Noted Date Comments Penicillin G 01/30/2023 Penicillins Unknown 12/05/2010 Medications * This document contains information received from the source organization and may not represent a complete record from that organization. acetaminophen (Tylenol) 500 MG tablet Take 1 tablet by mouth every 6 (six) hours if needed. 04/12/20 16 Active Insulin Pen Needle (pen needle 01/03 ) 31G x 5 mm misc Inject under the skin if needed. Use as directed twice daily Active Blood Pressure Monitor kitIndications: Hypertension, unspecified type Use to check blood pressure daily 1 kit 06/17/20 23 Active glucagon (Baqsimi Two Pack) 3 MG/DOSE nasal powderIndicatio ns:Type 2 diabetes mellitus without complication, with long-term current use of insulin ([facility]) Administer 3 mg via 1 device into the nostril for hypoglycemia with loss of consciousness. If no response after 15 minutes administer an additional dose via 2nd device into other nostril. 2 each 1 08/28/20 23 Active furosemide (Lasix) 40 MG tablet Take 1 tablet by mouth 2 times daily. Active Alcohol Swabs (Alcohol Prep) padsIndications :Type 2 diabetes mellitus without complication, with long-term current use of insulin ([facility]) Use one pad each to prep skin prior to injection as directed 100 each 02/10/20 24 Active Lancets 33G miscIndications :Type 2 diabetes mellitus without complication, with long-term current use of insulin (CMS/HCC) Use as directed to check blood sugar four times daily 100 each 3 02/10/20 24 Active Blood Glucose Monitoring Suppl (D-Care Glucometer) w/Device kitIndications: Type 2 diabetes mellitus with hyperglycemia, with long-term current use of insulin (CMS/HCC),Cirrh osis of liver with ascites, unspecified hepatic cirrhosis type (CMS/HCC) (CMS/HCC) Use as directed to check BS four times daily 1 kit 05/01/20 24 Active lactulose (Chronulac) 10 GM/15ML solutionIndicat ions:Cirrhosis of liver with ascites, unspecified hepatic cirrhosis type (CMS/HCC) (CMS/HCC) Take 30 mL (20 g) by mouth 3 times daily. 946 mL 3 05/20/20 24 Active traMADol (Ultram) 50 MG tabletIndicatio ns:Closed fracture of multiple ribs, unspecified laterality, initial encounter Take 1 tablet (50 mg) by mouth every 8 (eight) hours if needed for severe pain. 30 tablet 08/31/20 24 Active ferrous gluconate (Fergon) 324 (38 Fe) MG tabletIndicatio ns:Anemia, unspecified type Take 1 tablet (324 mg) by mouth with breakfast. 30 tablet 11 08/31/20 24 025 Active benztropine (Cogentin) 0.5 MG tabletIndicatio ns:Tardive dyskinesia TAKE 1 TABLET BY MOUTH TWICE A DAY 56 tablet 1 10/12/20 24 Active insulin degludec (Tresiba FlexTouch) 200 UNIT/ML injectionIndica tions:Type 2 diabetes mellitus without complication, with long-term current use of insulin (CMS/HCC) INJECT 54 UNITS SUBCUTANEOUSLY EVERY EVENING 9 mL 1 10/12/20 24 Active spironolactone (Aldactone) 100 MG tablet Take 1.5 tablets by mouth Once per day. 10/13/20 24 025 Active Problems Problem Noted Date Diagnosed Date Chronic kidney disease 06/15/2024 Gait instability 03/10/2023 Overview (03/10/2023): ?? Referred to PT 11/2022 for gait assistance evaluation Internal carotid artery stenosis, bilateral 02/19 Hyponatremia 03/10/2023 Healthcare maintenance 12/03/2022 Overview (03/10/2023): Mammo: Ordered 11/2022 Pap: Unknown. Referred to CONSTRUCTION FIELD [facility]INEER 11/2022 for PMB. Ultrasound pending C-scope: 2019, precancerous polyps Cirrhosis of liver 04/21/2018 Overview (09/09/2023): ?? Decompensated QURESHI cirrhosis ?? MELD-Na: 16. Followed by [facility]. Paracentesis q. 2 weeks. EGD 2019 with grade II varices. Colonoscopy 2019 with polyps removed. Tubular adenoma present. Lactulose 2-3x/day for hepatic encephalopathy with goal 2-3 BM's per day. On propranolol 30mg b.I.d for varices. Lasix 100mg daily and sironolactione 150mg for ascites. Assessment & Plan (09/09/2023 3:57 PM EST): ?? Follow up as scheduled with GI next week ?? Will request most recent GI note Assessment & Plan (03/19/2023 5:20 PM EDT): ?? I left message with [facility] requesting provider-provider consult given severity of ascites ?? Follow up as scheduled with GI next week ?? Continue medications as prescribed Assessment & Plan (03/10/2023 5:54 PM EDT): I am very concerned about worsening decompensation. Patient had paracentesis done last week, however given decreased breath sounds, tachypnea, and distended abdomen I recommended that patient proceed to ED for further evaluation. Patient declines. Alert and oriented x 3. Reports she feels better than before her most recent paracentesis and daughter agrees that current fatigue and SOB has been her baseline over the past month. I reviewed strict ED precautions. Daughter and patient are unclear about current GI plan. I will reach out directly to [facility] for update and recommend patient placemen ton transplant list. Patient needs care management CORRINE. Will refer again today. Plan to have extended follow up visit with patient, daughter, and care mngmt present for advanced care planning. Morbid obesity 04/21/2018 Osteoarthritis of multiple joints 04/21/2018 Schizophrenia 04/21/2018 Overview (03/10/2023): ?? Schizophrenia c/b tardive dyskinesia. On haldol 5mg daily. Benztropine 0.5mg b.I.d for sx mngmt. Needs new psychiatrist. On wait list at [facility]. ?? Referred to [facility] psychopharm clinic 11/2022 Assessment & Plan (05/06/2024 10:45 AM EDT): During IB Consult Catherine presenting with depressed mood, loss of interests/pleasure , changes in sleep difficulty staying asleep , psychomotor retardation, trouble concentrating, thoughts of worthlessness or guilt, worthlessness ; for a period of 18+ mo, for all symptoms in the context of illness or family illness. Catherine carries a diagnosis for schizophrenia. Symptoms have been present for about 30 years. She was on medication prescribed by Yash Arredondo. Patient stopped taking her meds about a month ago. Per her daughter's report, sxs have improved and patient feels more in the present and does not seem confused . Recommendations made about importance of continuing treatment and seek out for professional advise from psych provider. Catherine was referred to [facility] on 03/31. Information given to patient with agency's contact number to request intake for psychotherapy and psychiatry services. During today's consult, Catherine was engaged with active, reflective listening. Reviewed and assessed for risk, current stressors and triggers using open-ended questions. Pt agreed with plan to contact [facility] and will update clinician if extra support is needed for services. PLAN: (check all that apply) Continue with current services (defined as services in the past 12 months) . Pt was referred to [facility] on 03/31. clinician provided information and printed out letter with [facility] contact numbers. clinician will be available if requested during next consult. Assessment & Plan (02/12/2024 9:53 AM EDT): PLAN: (check all that apply) New/Additional Services needed Off-site services for Behavioral Health Integration Plan External OP therapy referral and OP psychiatry Referral Patient Self Plan Patient to reach out to [facility] team as needed, Comply with medication , and Patient to engage in OP therapy Tardive dyskinesia 04/21/2018 Thrombocytopenia 04/21/2018 Type 2 diabetes mellitus without complication Overview (03/17/2024): Tresiba 54 units qhs lispro sliding scale- BS <150-12 units 150-199-14 units 200-249- 16 units 250-300- 18 units >300-20 units A1c: 11/2022 11% 01/2023 9.9% BMP: 11/2022 Microalbumin: Foot Exam: Foot exam with Risk 3-Significant loss of protective sensation. Eye Exam:Pending [facility] referral Lipid panel: 11/2022 ASCVD: 6.7% Statin: No ASA: No SONU/ARB: No (discontinued due to hyponatremia) Encouraged regular aerobic exercise for improved glycemic control Encouraged daily foot checks Encouraged lean protein snacks and to avoid foods high in sugar and simple carbohydrates Treatment Goals: A1c goal: <7% FBG goal: <130 2 hour post prandial goal: <180 Assessment & Plan (09/09/2023 4:10 PM EST): ?? POC BS [facility] s/p 10 units lispro in office. UA negative for ketones. Encouraged hydration and strict ED precautions to include nausea/vomiting abdominal pain/weakness/behavior change or inability to lower BS at home. . Recheck BS at home and dose humalog per sliding scale. ?? Suspect that CGM is not accurate for patient due to significant changes in interstitial fluid s/t low protein state with decompensated cirrhosis. Daughter may have been under dosing insulin as she was using readings from CGM which where not accurate. Will switch to glucometer readings only ?? RESTART glipizide 10mg xr once daily ?? Continue tresiba and sliding scale as prescribed ?? STAT referral to [facility] DM educator Lab Results Component Value Date HGBA1C 11.6 (A) 09/02/2023 ?? Assessment & Plan (03/19/2023 5:19 PM EDT): ?? SWITCH to tresiba 56 units at bedtime ?? Continue current mealtime insulin sliding scale ?? Follow up 1 week with phone call with plan to titrate insulin up ?? CGM once PA approved Assessment & Plan (03/10/2023 5:56 PM EDT): Lab Results Component Value Date HGBA1C 9.9 (H) 02/08/2023 ?? Improving from >11 % 11/2022 ?? Continue current regimen ?? Will rx CGM ?? Patient and daughter request that primary care handles DM moving forward and do not with to continue with [facility] endocrinology Resolved Problems Problem Noted Date Diagnosed Date Resolved Date Hypervolemia 10/17/2022 02/14/2023 Noncompliance with treatment regimen 04/01/2022 12/07/2022 Nonalcoholic steatohepatitis 04/21/2018 03/10/2023 Encounters * This document contains information received from the source organization and may not represent a complete record from that organization. Date Type Department Care Team Description 11/18/2024 1:30 PM EST Office Visit [address] [address] Ana Davis FNP Cirrhosis of liver with ascites, unspecified hepatic cirrhosis type (CMS/HCC) (CMS/HCC) (Primary Dx); Type 2 diabetes mellitus with chronic kidney disease, with long-term current use of insulin, unspecified CKD stage (CMS/HCC); Urinary incontinence, unspecified type 11/18/2024 Travel 11/13/[address] [address] Maude Dennis, RN Care Management (C3CM- f/u call) 11/05/[address] [address] Ana Davis FNP Care Coordination (ICP care plan) 11/04/[address] [address] Maude Dennis, MARQUITA Care Management (C3CM- f/u call) 11/03/[address] [address] Ana Davis FNP 11/02/2024 Orders Only [facility] [address] [place] [address] Ana Davis FNP Gait instability (Primary Dx) 10/27/2024 Telephone [facility] [place] [address] Maude Dennis, MARQUITA Care Management (C3CM- f/u call. Unable to leave v/m.) 10/16/[address] [address] Maude Dennis, MARQUITA Care Management (C3CM- f/u call) 10/15/[address] [address] Carolina Haynes, MARQUITA HDF coordination 10/15/2024 Patient Outreach [address] [address] Ana Davis FNP Transition Of Care (Tcm) (HDF- scheduled and SDMS screening completed on 09/07/2024) 10/12/[address] [address] Ana Davis FNP Medication Question 10/12/[address] [address] Ana Davis FNP Tardive dyskinesia; Type 2 diabetes mellitus without complication, with long-term current use of insulin ([facility]) 10/01/2024 Orders Only [facility] [place] [address] Ana Davis FNP Tardive dyskinesia (Primary Dx); Gait instability 10/01/[address] [address] Maude Dennis, MARQUITA Care Management (C3CM- f/u call) 10/01/2024 Patient Outreach [address] [address] Ana Davis FNP Care Coordination (SDOH graduate) 09/28/[address] [address] Ana Davis FNP FYI 09/21/2024 Telephone [facility] [place] [address] Maude Dennis, RN Care Management (C3CM- f/u call) 09/21/2024 Patient Outreach [facility] [place] [address] [facility] Care Coordination (SDOH) 09/16/[address] [facility] Call Back Request 09/15/[address] [facility] Durable Medical Equipment 09/09/[address] [facility] Care Coordination ([employer] [facility] Orders) 09/08/[address] [address] Carolina Haynes, RN Results 09/07/[address] [address] Maude Dennis, MARQUITA Care Management (C3CM- f/u call) 09/07/2024 Patient Outreach [facility] [place] [address] [facility] Care Coordination (SDOH) 09/01/[address] [address] Carolina Haynes, RN Results 08/31/2024 10:00 AM EST Office Visit [facility] [place] [address] [facility] Type 2 diabetes mellitus with chronic kidney disease, with long-term current use of insulin, unspecified CKD stage (CMS/HCC) (Primary Dx); Cirrhosis of liver with ascites, unspecified hepatic cirrhosis type (CMS/HCC) (CMS/HCC); Schizophrenia, unspecified type (CMS/HCC); Closed fracture of multiple ribs, unspecified laterality, initial encounter; Closed nondisplaced fracture of greater tuberosity of left humerus, initial encounter; Blurred vision; Encounter for immunization; Anemia, unspecified type 08/31/2024 Travel 08/27/2024 Telephone [facility] [address] [place], [place] [phone] Maude Dennis RN Care Management (C3- initial assessment/ enrollment) 08/25/2024 Patient Outreach [phone] [place] [facility] Care Coordination (Appt reminder) 08/18/2024 Patient Outreach [facility] [address] [place], [place] [phone] [place] [facility] discharge request (Discharge summary request) from Last 3 Months Immunizations Name Administration Dates Next Due Hep B, adult 10/18/2022,11/02/2019,05/16/2015 Influenza injectable quadriv alent IIV4 with preservative 09/08/2018,08/06/2016,08/17/2015 Influenza injectable quadriv alent preservative free 09/02/2023,10/05/2022,11/02/2019 Influenza, IIV3, injectable 11/29/2009, 9 Influenza, Split (incl. teja fied surface antigen) 07/29/2013,08/11/2012 Influenza, seasonal, injecta ble, preservative free 08/31/2024 Pneumococcal Conjugate PCV 20 12/03/2022 Pneumococcal Polysaccharide PPSV23 07/29/2013, TD (adult), 2 Lf tetanus tox oid, preservative free, adsorbed 12/01/1997 Tdap 12/03/2022,11/27/2012 Zoster, Recombinant 10/18/2022 Social History Tobacco Use Types Packs/Day Years Used Date Smoking Tobacco: Former Cigarettes Q uit: 1991 Passive Smoke Exposure: Never Smokeless Tobacco: Never Tobacco Cessation:Counseling Given: Not Answered Alcohol Use Standard Drinks/Week Comments Never 0 (1 standard drink = 0.6 oz pur e alcohol) Depression Answer Date Recorded Patient Health Questionnaire-9 Score 10 11/18/2024 Patient Health Questionnaire-9 Score 10 11/18/2024 Last PHQ-9: Questionnaire Data Not on file 0 11/18/2024 Housing Stability Answer Date Recorded What is your housing situation today? I have kimani kline 02/24/[address] you li ve. Do you have problems with any of the following? None of the above 02/24/2024 Food Insecurity Answer Date Recorded Within the past 12 months, y ou worried that your food would run out before you got money to buy more: Sometimes True 2023 Within the past 12 months,th e food you bought just didn't last and you didn't have enough money to get more: Sometimes True 09/07/2024 Transportation Answer Date Recorded In the past 12 months, has l ack of transportation kept you from medical appts, meetings, work or from getting things needed for daily living? No 02/24/2024 Utilities Answer Date Recorded In the past 12 months, has t he electric, gas, oil or water company threatened to shut off services in your home? No 02/24/2024 Depression Answer Date Recorded Patient Health Questionnaire-2 Score 5 11/18/2024 Internet Access Answer Date Recorded Internet Access Q1 Yes 09/07/2024 Internet Access Q2 Not on file 09/07/2024 Comments No Sex and Gender Information Value Date Recorded Sex Assigned at Female 08/20/2022 10:14 AM EDT Legal Sex Female 10:14 AM EDT Gender Identity Female 08/20/2022 10:14 AM EDT Sexual Orientation Straight 08/20/2022 10 :14 AM EDT Last Filed Vital Signs Vital Sign Reading Time Taken Comments Blood Pressure 114/65 11/18/2024 1:46 PM EST Pulse 96 11/18/2024 1:41 PM EST Temperature 36.4 ??C (97.6 ??F) 11/18/2024 1:41 PM ES T Respiratory Rate 16 11/18/2024 1:41 PM EST Oxygen Saturation 97% 08/31/2024 10:55 AM EST Inhaled Oxygen Concentration - - Weight 74.7 kg (164 lb 9.6 oz) 11/18/2024 1:41 P M EST Height 157.5 cm (5' 2 ) 11/18/2024 1:41 PM EST Body Mass Index 30.11 11/18/2024 1:41 PM EST Plan of Treatment Upcoming Encounters Date Type Department Care Team (Late st Contact Info) Description 12/14/2024 1:30 PM EST Office Visit [facility] [address] [place] [address] Ritesh, Virgen, OD [address] [place] [address] 12/18/2024 1:15 PM EST Office Visit [facility] [address] [place] [address] Susan, Ana, DIP PAINTER [address] [place] [address] Health Maintenance Due Date Last Done Comments CT Colonography 1961 Colonoscopy 1961 Colorectal Cancer Screening 1961 FIT DNA/Cologuard 1961 FIT 1961 FOBT 1961 Sigmoidoscopy 1961 Eye Exam 1971 Alcohol/Substance Use Screening 1973 Hepatitis A Vaccines (1 of 2 - Risk 2-dose series) 1980 Pap Smear 1982 Cervical Cancer Screening 1991 HPV/Cotest 1991 RSV Patients and Patients Aged 60 years or older (1 - Risk 60-74 years 1-dose series) 2021 Mammogram 08/17/2021 08/17/2019 Zoster Vaccines (2 of 2) 12/13/2022 10/18/2022 COVID-19 Vaccine ( season) 2024 Diabetes: Hemoglobin A1C 12/01/2024 024, 06/12/2024, 05/01/2024, Additional history exists Diabetes: Foot Exam 02/09/2025 02/10/2024, 02/10/2024, 02/10/2024, Additional history exists Depression Monitoring (PHQ-9) 05/18/2025 11/18/2024, 11/18/2024 Lipid Panel 08/31/2025 08/31/2024, 11/21, 05/21/2022 SDOH Screening 09/07/2025 09/07/2024 Depression Screening 11/18/2025 11/18/2024, 11/18/19 25 Tobacco Screening 11/18/2025 11/18/2024 DTaP/Tdap/Td Vaccines (3 - Td or Tdap) 12/03/2032 12/03/2022, 11/27/2012, 12/01/1997 Hepatitis B Vaccines Completed 10/18/2022, 11/02/2019, 05/16/2015 HIV Screening Completed 12/03/2022 Hepatitis C Screening Completed 12/03/2022, 023 Pneumococcal Vaccine: 50+ Years Completed 12/03/2022, 07/29/2013, 02/17/2007 Influenza Vaccine Completed 08/31/2024, , 10/05/2022, Additional history exists HIB Vaccines Aged Out No longer eligi ble based on patient's age to complete this topic HPV Vaccines Aged Out No longer eligi ble based on patient's age to complete this topic IPV Vaccines Aged Out No longer eligi ble based on patient's age to complete this topic Meningococcal Vaccine Aged Out No gregoria aram eligible based on patient's age to complete this topic RSV under 20 months Aged Out No longe r eligible based on patient's age to complete this topic Rotavirus Vaccines Aged Out No longer eligible based on patient's age to complete this topic Goals Goal Patient Goal Type Associated Problems [...] PharmD Hemoglobin A1c < 8 Result Component 7.6( 4 11:08 AM EST) No Andree Ulloa PharmD Procedures Procedure Name Priority Date/Time Associated Diagnosis Comments CBC WITH AUTO DIFFERENTIAL Routine 11/18/2024 3:21 PM EST Cirrhosis of liver with ascites, unspecified hepatic cirrhosis type (CMS/HCC) (CMS/HCC) COMPREHENSIVE METABOLIC PANEL Routine 11/18/2024 3:21 PM EST Cirrhosis of liver with ascites, unspecified hepatic cirrhosis type (CMS/HCC) (CMS/HCC) POCT GLUCOSE Routine 11/18/2024 1:43 PM EST Type 2 diabetes mellitus with chronic kidney disease, with long-term current use of insulin, unspecified CKD stage (CMS/HCC) XR SHOULDER 2+ VIEWS LEFT Routine 10/01/2024 1:28 PM EST LIPID PANEL, STANDARD Routine 08/31/2024 11:55 AM EST Type 2 diabetes mellitus with chronic kidney disease, with long-term current use of insulin, unspecified CKD stage (CMS/HCC) CBC WITH AUTO DIFFERENTIAL Routine 08/31/2024 11:55 AM EST Cirrhosis of liver with ascites, unspecified hepatic cirrhosis type (CMS/HCC) (CMS/HCC) COMPREHENSIVE METABOLIC PANEL Routine 08/31/2024 11:55 AM EST Cirrhosis of liver with ascites, unspecified hepatic cirrhosis type (CMS/HCC) (CMS/HCC) POCT GLUCOSE Routine 08/31/2024 11:08 AM EST Type 2 diabetes mellitus with chronic kidney disease, with long-term current use of insulin, unspecified CKD stage (CMS/HCC) POCT GLYCATED HEMOGLOBIN, TOTAL Routine 08/31/2024 11:08 AM EST Type 2 diabetes mellitus with chronic kidney disease, with long-term current use of insulin, unspecified CKD stage (CMS/HCC) HEPATITIS C AB W/REFL TO HCV RNA, QN, PCR Routine 12/03/2022 11:57 AM EST Healthcare maintenance HIV 1/2 ANTIGEN/ANTIBODY, FOURTH GENERATION W/RFL Routine 12/03/2022 11:57 AM EST Healthcare maintenance BI MAMMOGRAM SCREENING BILATERAL Routine 08/17/2019 4:20 PM EDT from Last 3 Months or Most Recently Relevant to Health Maintenance Results * (ABNORMAL) CBC auto differential (11/18/2024 3:21 PM EST) Only the most recent of2 resultswithin the time period is included. White Blood Count 4.0(L) 4.8 - 10.8 X10*3/uL [facility] Red Blood Count 3.02(L) 4.20 - 5.50 X10*6/uL [facility] Hemoglobin 8.4(L) 12.0 - 16.0 g/dl [facility] Hematocrit 25.1(L) 37.0 - 47.0 % [facility] Mean Corpuscular Volume 83.1 80.0 - 98.0 fL [facility] Mean Corpuscular Hemoglobin 27.8 27.0 - 33.0 pg [facility] Mean Corpuscular HGB Conc 33.5 31.0 - 35.0 g/dl [facility] Red Cell Distribution Width 15.1 11.0 - 16.0 % [facility] Platelet Count 44(L) 160 - 400 X10*3/uL [facility] Mean Platelet Volume 10.9 9.4 - 12.3 fL [facility] Neutrophils Percent Auto 76.0(H) 45 - 73 % [facility] Imm Gran Pct Auto 0.5(H) 0.0 - 0.4 % [facility] Lymphocytes Percent Auto 12.6(L) 20 - 40 % [facility] Monocytes Percent Auto 6.9 2 - 11 % [facility] Eosinophils Percent Auto 3.5 0 - 4 % [facility] Basophils Percent Auto 0.5 0 - 2 % [facility] NRBC Pct Auto 0.0 0.0 - 0.2 /100WBC [facility] Neutrophils Absolute Auto 3.1 2.0 - 8.3 x10*3/uL [facility] Imm Gran Abs Auto 0.02 0.00 - 0.03 X10*3/uL [facility] Lymphocytes Absolute Auto 0.5(L) 1.2 - 4.9 X10*3/uL [facility] Monocytes Absolute Auto 0.3 0.1 - 1.2 X10*3/uL [facility] Eosinophils Absolute Auto 0.1 0.0 - 0.4 X10*3/uL [facility] Basophils Absolute Auto 0.0 0.0 - 0.2 X10*3/uL [facility] NRBC Abs Auto 0.000 0.0 - 0.012 X10*3/uL [facility] Blood Venous blood specimen / Unknown 11/18/2024 3:21 PM EST 11/18/2024 4:34 PM EST [facility] DIP PAINTER LAB BLOOD ORDERABLES Final Re sult [facility] [address] [place] [address] [phone] * (ABNORMAL) Comprehensive Metabolic Panel (11/18/2024 3:21 PM EST) Only the most recent of2 resultswithin the time period is included. Sodium 138 135 - 145 mmol/L [facility] Potassium 3.4 3.3 - 5.1 mmol/L [facility] Chloride 108 96 - 108 mmol/L [facility] Carbon Dioxide 22 22 - 29 mmol/L [facility] Anion Gap 11(L) 12 - 20 [facility] Urea Nitrogen (BUN) 20(H) 9 - 16 mg/dL [facility] Creatinine, Serum 0.94 0.5 - 1.4 mg/dL [facility] Estimated Glomerular Filt Rate >60 [facility] Comment:Chronic Kidney Disea se: Estimated GFR < 60 mL/min/[id number] Kidney Disease: Estimated GFR < 15 mL/min/1.73m2 Glucose 293(H) 60 - 115 mg/dL [facility] Calcium 7.9(L) 8.4 - 10.2 mg/dL [facility] Bilirubin, Total 0.9 0.0 - 1.0 mg/dL [facility] Aspartate Amino Transferase 42(H) 5 - 31 U/L [facility] Alanine Aminotransferase 21 0 - 31 U/L [facility] Total Protein 7.1 6.5 - 8.0 g/dL [facility] Albumin Level 2.6(L) 3.5 - 5.0 g/dL [facility] Alkaline Phosphatase 103 39 - 117 U/L [facility] Blood Venous blood specimen / Unknown 11/18/2024 3:21 PM EST 11/18/2024 4:34 PM EST [facility] DIP [facility]INTER LAB BLOOD ORDERABLES Final Re sult [facility] [address] [place] [address] [phone] * (ABNORMAL) POCT Glucose (11/18/2024 1:43 PM EST) Only the most recent of2 resultswithin the time period is included. Glucose Blood, POC 261(A) 60 - 200 mg/dL QC Media Lot # [id number] Lot# Expiration Date Blood Capillary blood specimen / Unknown 11/18/2024 1:43 PM EST [facility] DIP PAINTER POINT OF CARE TEST ENTER/EDIT ORDERABLES Final Result * XR Shoulder 2+ Views Left (10/01/2024 1:28 PM EST) Anatomical Region Laterality Modality Upper Extremities, Shoulder Left Radi ographic Imaging 10/01/2024 1:28 PM EST Narrative 11/03/2024 12:59 PM EST ? [facility] ? [address] ?[place] [address] ?XRay Report ? Signed with Addenda ? Patient: Stern,Catherine ?MR#: [id number] ? : 1960 ?Acct:[id number] ? Age/Sex: 64 / F ?ADM Date: 12/12/24 ? Loc: HO.HOSX ? Attending Dr: Valerie Duarte PA-C ? Ordering Physician: Valerie Duarte PA-C ?? Date of Service: 10/01/24 ?? Procedure(s): XR shoulder LT min 2V ?? Accession Number(s): [id number] ? cc: Valerie Duarte PA-C; Ana Davis DIP PAINTER ?ADDENDUM ? ADDENDUM #1 ? Results Acknowledgement: ?? Exam results confirmed on both exams for this patient at 2:57 PM by ?? Elisha Mai, manager retail sales/nurse. ?? Dinorah Samson, 11/09/2024 2:59 PM ? Electronically signed by: ??Kelle Reid MD ??11/10/2024 06:40 AM EST ? Addendum Dictated By: ?Kelle Reid MD ? Addendum Signed By: ? <Electronically signed by Kelle Reid MD in OV> ? 11/10/24 0640 ?? Addendum Cosigned By: ? DD/ /13/1328 ? TD/TT: 10/01/2410/13/1333 ? ADDENDUM #1 ? Results Acknowledgement: ?? Exam results confirmed on both exams for this patient at 2:57 PM by ?? Elisha Mai, manager retail sales/nurse. ?? Dinorah Samson, 11/09/2024 2:59 PM ? Electronically signed by: ??Kelle Reid MD ??11/10/2024 06:40 AM EST ?? RP ? ORIGINAL REPORT ? EXAMINATION: ?? XR LEFT SHOULDER ? CLINICAL INFORMATION: ?? Pain in unspecified shoulder M25.519. ? COMPARISON: ?? XR Left shoulder 09/03/2024 and 08/14/2024, LEFT humerus 08/14/2024. ? TECHNIQUE: ?? Three views of the left shoulder. ? FINDINGS: ?? Redemonstration of a comminuted, mildly displaced fracture along the ?? humeral head, greater tuberosity. Fracture lines are still visible, ?? although there is some evidence of bridging bone formation. ? Mild degenerative changes in the acromioclavicular joint. ? Dense 9 mm nodule overlying the partially imaged LEFT mid lung was ?? better characterized on chest radiograph of 08/23/2023, possibly ?? increased in size. Dedicated chest radiographs recommended for further ?? evaluation. ? IMPRESSION: ? 1 Redemonstration of a comminuted, mildly displaced fracture along the ?? humeral head, greater tuberosity. Fracture lines are still visible, ?? although there is some evidence of bridging bone formation. ? 2. Dense 9 mm nodule overlying the partially imaged LEFT mid lung was ?? better characterized on chest radiograph of 08/23/2023, possibly ?? increased in size. Dedicated chest radiographs recommended for further ?? evaluation. ? This study was presented to me on November 03, 2024 for interpretation. ?? [facility] staff will provide results to referring provider at this time. ? Electronically signed by: ??Kelle Reid MD ??11/03/2024 12:56 PM EST ?? RP ? XR/XR shoulder LT min 2V ?? IMPRESSION: ? 1 Redemonstration of a comminuted, mildly displaced fracture along the ?? humeral head, greater tuberosity. Fracture lines are still visible, ?? although there is some evidence of bridging bone formation. ? 2. Dense 9 mm nodule overlying the partially imaged LEFT mid lung was ?? better characterized on chest radiograph of 08/23/2023, possibly ?? increased in size. Dedicated chest radiographs recommended for further ?? evaluation. ? This study was presented to me on November 03, 2024 for interpretation. ?? [facility] staff will provide results to referring provider at this time. ? Electronically signed by: ??Kelle Reid MD ??11/03/2024 12:56 PM EST ?? RP ? Dictated By: ?Kelle Reid MD ? Signed By: ?<Electronically signed by Kelle Reid MD in OV> ? 11/10/24 0640 ? DD/ 1328 ? TD/TT: 10/01/24 1333 ? Power Wood Sawyer: ? Procedure Note Hermes, Galen - 11/15/2024 [facility] [address] [place] [address] [address] [place] [address] XRay Report Signed with Addenda Patient: Maki Stern#: [id number] : 1Acct:[id number] Age/Sex: 64 / FADM Date: 10/01/24 Loc: HO.HOSX Attending Dr: Valerie Duarte PA-C Ordering Physician: Valerie Duarte PA-C Date of Service: 10/01/24 Procedure(s): XR shoulder LT min 2V Accession Number(s): [id number] cc: Valerie Duarte PA-C; [facility] ADDENDUM ADDENDUM #1 Results Acknowledgement: Exam results confirmed on both exams for this patient at 2:57 PM by lEisha Mai, manager retail sales/nurse. Dinorah Samson, 11/09/2024 2:59 PM Electronically signed by: Kelle Reid MD 11/10/2024 06:40 AM EST RP Addendum Dictated By: Kelle Reid MD Addendum Signed By: <Electronically signed by MD Marjan in OV> 11/10/24 0640 Addendum Cosigned By: DD/ /13/1328 TD/TT: 10/01/2410/13/1333 ADDENDUM #1 Results Acknowledgement: Exam results confirmed on both exams for this patient at 2:57 PM by Elisha Mai, manager retail sales/nurse. Dinorah Samson, 11/09/2024 2:59 PM Electronically signed by: Kelle Reid MD 11/10/2024 06:40 AM EST RP ORIGINAL REPORT EXAMINATION: XR LEFT SHOULDER CLINICAL INFORMATION: Pain in unspecified shoulder M25.519. COMPARISON: XR Left shoulder 09/03/2024 and 08/14/2024, LEFT humerus 08/14/2024. TECHNIQUE: Three views of the left shoulder. FINDINGS: Redemonstration of a comminuted, mildly displaced fracture along the humeral head, greater tuberosity. Fracture lines are still visible, although there is some evidence of bridging bone formation. Mild degenerative changes in the acromioclavicular joint. Dense 9 mm nodule overlying the partially imaged LEFT mid lung was better characterized on chest radiograph of 08/23/2023, possibly increased in size. Dedicated chest radiographs recommended for further evaluation. IMPRESSION: 1 Redemonstration of a comminuted, mildly displaced fracture along the humeral head, greater tuberosity. Fracture lines are still visible, although there is some evidence of bridging bone formation. 2. Dense 9 mm nodule overlying the partially imaged LEFT mid lung was better characterized on chest radiograph of 08/23/2023, possibly increased in size. Dedicated chest radiographs recommended for further evaluation. This study was presented to me on November 03, 2024 for interpretation. [facility] staff will provide results to referring provider at this time. Electronically signed by: Kelle Reid MD 11/03/2024 12:56 PM EST RP XR/XR shoulder LT min 2V IMPRESSION: 1 Redemonstration of a comminuted, mildly displaced fracture along the humeral head, greater tuberosity. Fracture lines are still visible, although there is some evidence of bridging bone formation. 2. Dense 9 mm nodule overlying the partially imaged LEFT mid lung was better characterized on chest radiograph of 08/23/2023, possibly increased in size. Dedicated chest radiographs recommended for further evaluation. This study was presented to ga on November 03, 2024 for interpretation. [facility] staff will provide results to referring provider at this time. Electronically signed by: Kelle Reid MD 11/03/2024 12:56 PM EST RP Dictated By: Kelle Reid MD Signed By: <Electronically signed by Kelle Reid MD in OV> 11/10/24 0640 DD/ 1328 TD/TT: 10/01/24 1333 [employer] Sawyer: [facility] External Provider IMG XR PROCEDURES Edited Result - Final * Lipid Panel, Standard (08/31/2024 11:55 AM EST) Triglycerides 53 <150 mg/dL [facility] Comment:Desirable Triglyceri de: less than 150 mg/dLBorderline High Triglyceride 150-199 mg/dLHigh Triglyceride: 200-499 mg/dLVery High Triglyceride: greater than or equal to 5OO mg/dL Cholesterol 132 <200 mg/dL [facility] Comment:Desirable Cholestero l: less than 200 mg/dLBorderline High Cholesterol: 200-239 mg/dLHigh Cholesterol: greater than 239 mg/dL LDL Cholesterol Calculated 74 <100 mg/dL [facility] Comment:Desirable LDL: less than 100 mg/dLNear Optimal/Above Optimal LDL: 110- 129 mg/dLBorderline High LDL: 130-159 mg/dLHigh LDL: 160-189 mg/dLVery High LDL: greater than or equal to 190 mg/dL HDL Cholesterol 48 >40 mg/dL [facility] Comment:Desirable HDL: great er than 40 mg/dL Note: This HDL assay may give artificially low results in patients with liver disease. Blood Venous blood specimen / Unknown 08/31/2024 11:55 AM EST 08/31/2024 1:07 PM EST [facility] LAB BLOOD ORDERABLES Final Re sult Performing Organization Address City/State/[facility] Co de Phone Number [facility] [address] [place] [phone] * (ABNORMAL) POCT A1C (08/31/2024 11:08 AM EST) Pathologist [facility] Hemoglobin A1C 7.6(A) 4.0 - 6.0 % QC Media Lot # [id number] Lot# Expiration Date Blood 08/31/2024 11:0 8 AM EST [facility] POINT OF CARE TEST ENTER/EDIT ORDERABLES Final Result * Hepatitis C Antibody with Reflex to HCV, RNA, Quantitative, Real-Time PCR (12/03/2022 11:57 AM EST) Pathologist [facility] Hepatitis C Antibody NON-REACT LAURA NON-REACT LAURA [employer] [place] [employer] Index 0.18 <1.00 [facility] [place] [employer] Comment: HCV antibody was non-reactive. There is no laboratory evidence of HCV infection. In most cases, no further action is required. However, if recent HCV exposure is suspected, a test for HCV RNA (test code 29823) is suggested. For additional information please refer to http://4vets.TapInfluence/faq/PZX22n6 (This link is being provided for informational/ educational purposes only.) Blood Venous blood specimen / Unknown 12/03/2022 11:57 AM EST 12/03/2022 11:58 AM EST Narrative [facility] - 12/04/2022 2:01 AM EST FASTING:NO FASTING: NO [facility] LAB BLOOD ORDERABLES Final Re sult [employer] [address] [facility], [facility], [place] [address] [employer] [place] [employer] [address] [facility], ([address]) [place] [address] * HIV-1/2 Antigen and Antibodies, Fourth Generation, with Reflexes (12/03/2022 11:57 AM EST) [facility] HIV Antigen/Antibody, 4th Generation NON-REAC TIVE NON-REAC TIVE [facility] [place] [employer] [facility] Comment: HIV-1 antigen and HIV-1/HIV-2 antibodies were not detected. There is no laboratory evidence of HIV infection. PLEASE NOTE: This information has been disclosed to you from records whose confidentiality may be protected by state law. ??If your state requires such protection, then the state law prohibits you from making any further disclosure of the information without the specific written consent of the person to whom it pertains, or as otherwise permitted by law. A general authorization for the release of medical or other information is NOT sufficient for this purpose. ?? For additional information please refer to http://4vets.TapInfluence/faq/HVG021 (This link is being provided for informational/ educational purposes only.) The performance of this assay has not been clinically validated in patients less than 2 years old. Blood Venous blood specimen / Unknown 12/03/2022 11:57 AM EST 12/03/2022 11:58 AM EST Narrative [facility] - 12/04/2022 2:01 AM EST FASTING:NO FASTING: NO [facility] DIP PAINTER LAB BLOOD ORDERABLES Final Re sult [facility] [address] [facility], [address]rd Fl, [place] [address] [employer] [address], ([address]) [place] [address] * DIGITAL BILATERAL SCREEN 1 (08/17/2019 4:20 PM EDT) Anatomical Region Laterality Modality Breast Bilateral Mammography 08/17/2019 4:20 PM EDT Narrative 08/17/2019 4:22 PM EDT Refer to the Notes tab for result details [facility] Procedure: DIGITAL BILATERAL SCREEN 1 Procedure Note Provider, MD Paulo - 01/12/2023 Refer to the Notes tab for result details [facility] Procedure: DIGITAL BILATERAL SCREEN 1 Yash Arredondo DIP PAINTER IMG BI PROCEDURES Final Result from Last 3 Months or Most Recently Relevant to Health Maintenance Insurance C3 Care Teams Field Software Engineer Relationship Specialty Start Date End Date Ana Davis DIP PAINTER [address] [place] [address] PCP - General Family Medicine 04/05/22 Andree Ulloa PharmD [address] [place] [address] Pharmacist Internal Medicine 05/09/23 Maude Dennis RN [address] [place] [phone] Instrumentation InstructorMilk Route Supervisor 08/27/24 Flavia Segundo Tray ServerMilk Route Supervisor 10/10/23 [employer] 08/14/24 Gabrielle Fitch Tray ServerMilk Route Supervisor 11/05/24
--- OUTSIDE RECORDS SUMMARY | 2024-11-18 17:15 | XMS_ITS | Encounter Summary ---
Author Organization [employer] Address [address] [facility] [address] [place] [address] Care Team Providers Care Shot Polisher Name Role Phone [facility] Primary Care Provider [phone] Andree Ulloa PharmD Unavailable [phone] Maude Dennis RN Unavailable [phone] Reason for Visit * Reason Comments Med Refill Encounter Details Date Type Department Care Team (Late st Contact Info) Description 10/03/2023 Refill [facility] CHC MED & PEDS [address] [place] [address] [facility], [facility] [address] [place] [address] Tardive dyskinesia Social History Tobacco Use Types Packs/Day Years [...] Description 12/14/2024 1:30 PM EST Office Visit [facility] OPTOMETRY [address] [place] [address] Ritesh, Virgen, OD [address] [place] [address] 12/18/2024 1:15 PM EST Office Visit [facility] MEDICINE [address] [place] [address] Susan, Ana, ARTIST REPRESENTATIVE [address] [place] [address] documented as of this encounter Goals Goal [...] Hemoglobin A1c < 8 Result Component 7.6( 11:08 AM EST) No Andree Ulloa, PharmD documented as of this encounter Visit Diagnoses Diagnosis Tardive dyskinesia Subacute dyskinesia due to drugs documented in this encounter Additional Health Concerns Assessment Noted Time PHQ-9 Depression Total Score: 0 09/02/20 23 12:14 PM EST documented as of this encounter Care Teams Shot Polisher Relationship Specialty Start Date End Date Ana Davis [facility] [address] [place] [address] PCP - General Family Medicine 04/05/22 Andree Ulloa, PharmD [address] [place] [phone] Pharmacist Internal Medicine 05/09/23 Maude Dennis RN [address] [place] [phone] Vocational CounselorBackup Operator 08/27/24 Flavia Segundo Mail List LibrarianBackup Operator 10/10/23 [employer] 08/14/24 Gabrielle Fitch Mail List LibrarianBackup Operator 11/05/24 documented as of this encounter
--- OUTSIDE RECORDS SUMMARY | 2024-11-18 17:15 | XMS_ITS | Clinical Summary ---
Author Organization [facility] Address [address] [place] [address] Phone Care Team Providers Care Table And Desk Finisher Name Role Phone Yash Arredondo NP Primary Care Provider [phone] Allergies Active Allergy Reactions Criticality Noted Date Comments Penicillins 10/12/2024 Medications Medication Sig Dispensed Refills Start Date End Date Status furosemide (LASIX) 40 mg tabletIndications:e mariann due to hepatic cirrhosis Take 1 tablet (40 mg total) by mouth 2 (two) times a day. 60 each 10/13/2024 Active insulin degludec (Tresiba FlexTouch U-100) 100 unit/mL (3 mL) injection pen Inject 50 Units under the skin at bedtime. 15 mL 10/13/2024 Active spironolactone (ALDACTONE) 100 mg tablet Take 1 tablet (100 mg total) by mouth 1 (one) time each day. 30 each 10/13/2024 Active lactulose (CHRONULAC) solution Take 15 mL (10 g total) by mouth 2 (two) times a day. Goal to have 2-3 loose bowel movements daily. Increase to three times daily if needed in order to achieve this 900 mL 10/13/2024 11/12/2024 Active Problems Problem Noted Date Diagnosed Date Anasarca 10/12/2024 Portal hypertension 10/12/2024 Ascites of liver 10/12/2024 Hepatic encephalopathy 10/12/2024 Esophageal varices 10/12/2024 Hypertension 10/12/2024 HLD (hyperlipidemia) 10/12/2024 Status post cholecystectomy 03/14/2023 Cirrhosis of liver 04/21/2018 Overview (10/12/2024): ?? Decompensated QURESHI cirrhosis ?? MELD-Na: 16. [place] by [facility] Paracentesis q. 2 weeks. EGD 2019 with grade II varices. Colonoscopy 2019 with polyps removed. Tubular adenoma present. Lactulose 2-3x/day for hepatic encephalopathy with goal 2-3 BM's per day. On propranolol 30mg b.I.d for varices. Lasix 100mg daily and sironolactione 150mg for ascites. Thrombocytopenia 04/21/2018 Encounters Date Type Department Care Team Description 10/12/2024 11:07 AM EST - 10/14/2024 12:37 PM EST Hospital Encounter [facility] [address] [place] [address] Edil Zhang, Yadira Urias MD Kokosadze, Estate, MD Seralathan, Manikandan, MD Shortness of breath (Primary Dx); Other ascites; Anasarca Discharge Disposition: Home-Health Care [facility] from Last 3 Months Surgical History Surgery Date Site/Laterality Comments OTHER SURGICAL HISTORY N/A PROCEDURE: HI ABDOM PARACENTESIS DX/THER W/IMAGING GUIDANCE Medical History Medical History Date Comments Parkinson's disease (CMS/HCC) DX :Parkinson's disease (HCC) Decompensation of cirrhosis of liver (CMS/HCC) DX:Decompensation of cirrhos is of liver (HCC) Pleural nodule DX:Pleural nodul e Hyponatremia DX:Hyponatremia CVA (cerebral vascular accid ent) (CMS/HCC) DX:CVA (cerebral vascular ac cident) (HCC) Left-sided weakness DX:Left-side d weakness Covid-19 DX:COVID-19 Ascites DX:Ascites Pancytopenia (CMS/HCC) DX:Pancyt openia (HCC) Varices of small intestine DX:Va rices of small intestine Psychosis (CMS/HCC) DX:Psychosis (HCC) Type 2 diabetes mellitus wit hout complications (CMS/HCC) DX:Type 2 diabetes mellitus without complications (HCC) HTN (hypertension) DX:HTN (hyper tension) Abscess of left thigh DX:Abscess of left thigh Staphylococcus aureus bacter emia with sepsis (CMS/HCC) DX:Staphylococcus aureus ilan teremia with sepsis (HCC) OLIVIA (acute kidney injury) (CMS/HCC) DX:OLIVIA (acute kidney injury) (HCC) Hypomagnesemia DX:Hypomagnesemi a Bilateral pleural effusion DX:Bi lateral pleural effusion Spontaneous bacterial perito nitis (CMS/HCC) DX:Spontaneous bacterial per itonitis (HCC) Acute hypoxic respiratory fa ilure (CMS/HCC) DX:Acute hypoxic respiratory failure (HCC) Sepsis with acute hypoxic re spiratory failure without septic shock (CMS/HCC) DX:Sepsis with acute hypoxic respiratory failure without septic shock (HCC) Nonalcoholic steatohepatitis (QURESHI) DX:Nonalcoholic steatohepatitis (QURESHI) Alcohol abuse, in remission DX:A lcohol abuse, in remission Family History Medical History Relation Name Comments Hypertension Father Liver cancer Father Other: Other Father Liver cancer Paternal Grandfather Liver cancer Uncle Relation Name Status Comments Father Paternal Grandfather Uncle Social History Tobacco Use Types Packs/Day Years Used Date Smoking Tobacco: Former Cigarettes S tarted: 10/21/1979 Smokeless Tobacco: Never Alcohol Use Standard Drinks/Week Comments Not Currently 0 (1 standard drink = 0.6 oz pur e alcohol) Interpersonal Safety Answer Date Record ed Physical Abuse 10/13/2024 Verbal Abuse 10/13/2024 Sex and Gender Information Value Date Recorded Sex Assigned at Not on file Gender Identity Not on file Sexual Orientation Not on file Job Start Date Occupation Industry Not on file Not on file Not on file Obstetrics History Last Filed Vital Signs Vital Sign Reading Time Taken Comments Blood Pressure 142/78 10/14/2024 11:23 AM EST Pulse 86 10/14/2024 11:23 AM EST Temperature 36.2 ??C (97.2 ??F) 10/14/2024 11:[address] Respiratory Rate 16 10/14/2024 11:23 AM EST Oxygen Saturation 97% 10/14/2024 11:23 AM EST Inhaled Oxygen Concentration - - Weight 178 kg (392 lb 3.2 oz) 10/13/2024 10:29 A M EST Height 170.2 cm (5' 7 ) 10/12/2024 1:35 PM EST Body Mass Index 61.43 10/12/2024 1:35 PM EST Plan of Treatment Health Maintenance Due Date Last Done Comments Diabetes: Annual Foot Exam 1971 Diabetes: Annual Retina Eye Exam 1971 Hepatitis A Vaccines (1 of 2 - Risk 2-dose series) 1980 Cervical Cancer Screening: Pap Smear 1982 RSV Immunization Patients 60+ Years Old (1 - Risk 60-74 years 1-dose series) 2021 Breast Cancer Screening 08/17/2021 08/17/2019 Colorectal Cancer Screening: Colonoscopy 09/23/2022 Social Influencers of Health Screening 09/23/2022 Zoster Vaccines (2 of 2) 12/13/2022 10/18/2022 COVID-19 Vaccine ( season) 2024 Diabetes: Annual Urine Albumin-Creatinine Ratio (uACR) 10/12/2024 Diabetes: Blood Sugar Control Test (HGBA1C) 02/28/2025 08/31/2024, 06/12/2024 Depression Screening 05/06/2025 05/06/2024 Diabetes: Annual GFR (Glomerular Filtration Rate) 10/13/2025 10/13/2024, 10/12/2024, 08/31/2024 Hypertension/CHF/CAD Annual BMP Blood Test 10/13/2025 10/13/2024, 10/12/2024, 08/31/2024 Cholesterol Screening (Lipid Panel) 10/13/2029 10/13/2024, 08/31/2024 DTaP,Tdap,and Td Vaccines (4 - Td or Tdap) 12/03/2032 12/03/2022, 11/27/2012, 12/01/1997 Hepatitis B Vaccines Completed 10/18/2022, 11/02/2019, 05/16/2015 HIV Screening Completed 12/03/2022 Hepatitis C Screening Completed 12/03/2022 Pneumococcal Vaccine: Pediatrics (0 to 5 Years) and At-Risk Patients (6 to 64 Years) Completed 12/03/2022, 07/29/2013, 02/17/2007 Influenza Vaccine Completed 08/31/2024, , 10/05/2022, Additional history exists HIB Vaccines Aged Out No longer eligi ble based on patient's age to complete this topic HPV Vaccines Aged Out No longer eligi ble based on patient's age to complete this topic IPV Vaccines Aged Out No longer eligi ble based on patient's age to complete this topic MMR Vaccines Aged Out No longer eligi ble based on patient's age to complete this topic Meningococcal ACWY Vaccine Aged Out N o longer eligible based on patient's age to complete this topic RSV Immunization Patients Under 20 months Aged Out No longer eligible based on patient's age to complete this topic Varicella Vaccines Aged Out No longer eligible based on patient's age to complete this topic Procedures Procedure Name Priority Date/Time Associated Diagnosis Comments POCT GLUCOSE BLOOD Routine 10/14/2024 11 :25 AM EST POCT GLUCOSE BLOOD Routine 10/14/2024 8: 16 AM EST POCT GLUCOSE BLOOD Routine 10/13/2024 11 :25 PM EST POCT GLUCOSE BLOOD Routine 10/13/2024 3: 46 PM EST POCT GLUCOSE BLOOD Routine 10/13/2024 10 :31 AM EST DIFFERENTIAL BODY FLUID Routine 10/13/20 10:14 AM EST PH, BODY FLUID Routine 10/13/2024 10:14 AM EST CHOLESTEROL, BODY FLUID Routine 10/13/20 10:14 AM EST ALBUMIN, BODY FLUID Routine 10/13/2024 1 0:14 AM EST PROTEIN, BODY FLUID Routine 10/13/2024 1 0:14 AM EST CELL COUNT WITH REFLEX DIFFERENTIAL, BODY FLUID Routine 10/13/2024 10:14 AM EST CULTURE BODY FLUID WITH GRAM STAIN Routine 10/13/2024 10:14 AM EST US PARACENTESIS W IMAGE GUIDANCE Routine 10/13/2024 10:12 AM EST POCT GLUCOSE BLOOD Routine 10/13/2024 8: 26 AM EST PROTEIN, TOTAL Add-On 10/13/2024 5:24 AM EST LACTATE DEHYDROGENASE Add-On 10/13/2024 5:24 AM EST LAVENDER - EDTA Routine 10/13/2024 5:24 AM EST EXTRA TUBES Routine 10/13/2024 5:24 AM EST LIPID PANEL WITH REFLEX TO DIRECT LDL Routine 10/13/2024 5:24 AM EST BASIC METABOLIC PANEL Routine 10/13/2024 5:24 AM EST POCT GLUCOSE BLOOD Routine 10/12/2024 11 :08 PM EST TROPONIN I HIGH SENSITIVITY STAT 10/12/2024 2:06 PM EST XR CHEST 2 VIEWS STAT 10/12/2024 12:3 7 PM EST AMMONIA STAT 10/12/2024 12:06 PM EST PROTHROMBIN TIME WITH INR STAT 10/12/2024 12:06 PM EST ACTIVATED PARTIAL THROMBOPLASTIN TIME STAT 10/12/2024 12:06 PM EST LIPASE STAT 10/12/2024 12:06 PM EST ALKALINE PHOSPHATASE STAT 10/12/2024 12:06 PM EST BILIRUBIN, TOTAL STAT 10/12/2024 12:0 6 PM EST ALANINE AMINOTRANSFERASE STAT 024 12:06 PM EST ASPARTATE AMINOTRANSFERASE STAT 10/12/2024 12:06 PM EST CBC WITH AUTO DIFFERENTIAL STAT 10/12/2024 12:06 PM EST B-TYPE NATRIURETIC PEPTIDE STAT 10/12/2024 12:06 PM EST TROPONIN I HIGH SENSITIVITY STAT 10/12/2024 12:06 PM EST BASIC METABOLIC PANEL STAT 10/12/2024 12:06 PM EST CBC AND DIFFERENTIAL STAT 10/12/2024 12:06 PM EST ECG 12-LEAD STAT 10/12/2024 11:18 AM EST ECG OUTSIDE 10/12/2024 ECG ANNOTATED 10/12/2024 from Last 3 Months Results * (ABNORMAL) POCT Glucose, blood (10/14/2024 11:25 AM EST) Only the most recent of7 resultswithin the time period is included. [facility] [address] Glucose POCT 254(H) 70 - 100 mg/dL 10/14/2024 11:26 AM [facility] Blood Capillary blood specimen / Unknown 10/14/2024 11:25 AM EST 10/14/2024 11:27 AM EST Aram Shearer MD LAB POINT OF CA RE TEST DOCKED DEVICE UNSOLICITED RESULTS [facility] [address] [place] [address], [place] [phone] * Cell count with reflex differential, body fluid (10/13/2024 10:14 AM EST) [facility] [address] Body Fluid Total Nucleated Cells 85 /mm3 LAB HEMETOLOGY METHOD 10/13/2024 12:28 PM [facility] Body Fluid RBC 1,000 /mm3 LAB HEMETOLOGY METHOD 10/13/2024 12:[address] [facility] Body Fluid Color Straw 10/13/2024 12:28 PM [facility] Body Fluid Clarity Clear 10/13/2024 12:28 PM [facility] Body Fluid Source Peritoneal 10/13/2024 12:28 PM [facility] Peritoneal Fluid Non-blood Collection / Unknown 10/13/2024 10:14 AM EST 10/13/2024 10:[address] [facility] - 10/13/2024 12:28 PM EST No reference ranges have been established for body fluids. Clinical correlation recommended. Salena RODRIGUEZ LAB BODY FLUIDS AND STOOLS ORDERABLES Performing Organization Address [facility] [[email or web address]] Co de Phone Number [facility] [address] [place] [address], [place] [phone] * Culture body fluid with gram stain (10/13/2024 10:14 AM EST) Fluid Culture No growth at 3 days LAB MICROBIOLOGY METHOD 10/16/2024 10:[address] [facility] Gram Stain Result No polymorphonuclear leukocytes, No epithelial cells, and No organisms noted 10/16/2024 10:[address] [facility] Peritoneal Fluid (Abdomen) Non-blood Collection / Unknown 10/13/2024 10:14 AM EST 10/13/2024 10:21 AM EST Salena RODRIGUEZ LAB MICROBIOLOG Y - GENERAL ORDERABLES Performing Organization Address [facility]/ZIP Co de Phone Number [facility] [address] [place] [address], [place] [phone] * Differential body fluid (10/13/2024 10:14 AM EST) Fluid Neutrophils % 4 % LAB HEMETOLOGY METHOD 10/13/2024 12:[address] [facility] Fluid Lymphocytes % 25 % LAB HEMETOLOGY METHOD 10/13/2024 12:34 PM [facility] Fluid Monocytes/Macro phages 71 % LAB HEMETOLOGY METHOD 10/13/2024 12:34 PM [facility] Peritoneal Fluid Non-blood Collection / Unknown 10/13/2024 10:14 AM EST 10/13/2024 10:21 AM EST [facility] - 10/13/2024 12:34 PM EST No reference ranges have been established for body fluids. Clinical correlation recommended. Salena RODRIGUEZ LAB BODY FLUIDS AND STOOLS ORDERABLES Performing Organization Address [facility] [[email or web address]] Co de Phone Number [facility] [address] [place] [address], * Cholesterol, body fluid (10/13/2024 10:14 AM EST) Cholesterol, Fluid <50 See Comment mg/dL LAB CHEMISTRY METHOD 10/13/2024 11:[address] [facility] Ascitic fluid (substance) 10/13/2024 10:14 AM EST 10/13/2024 10:20 AM EST [facility] - 10/13/2024 11:05 AM EST No reference ranges have been established for body fluids. Clinical correlation recommended. Salena RODRIGUEZ LAB BODY FLUIDS AND STOOLS ORDERABLES Performing Organization Address [facility] de Phone Number [facility] [address] [place] [address], * Protein, body fluid (10/13/2024 10:14 AM EST) Protein, Fluid 0.4 See Comment g/dL LAB CHEMISTRY METHOD 10/13/2024 11:[address] [facility] Ascitic fluid (substance) 10/13/2024 10:14 AM EST 10/13/2024 10:20 AM EST [facility] - 10/13/2024 11:00 AM EST No reference ranges have been established for body fluids. Clinical correlation recommended. Salena RODRIGUEZ LAB BODY FLUIDS AND STOOLS ORDERABLES Performing Organization Address [facility] [[email or web address]] Co de Phone Number [facility] [address] [place] [address], [place] [phone] * Albumin, body fluid (10/13/2024 10:14 AM EST) Albumin, Fluid 0.2 See Comment g/dL LAB CHEMISTRY METHOD 10/13/2024 11:[address] [facility] Ascitic fluid (substance) 10/13/2024 10:14 AM EST 10/13/2024 10:20 AM EST [facility] - 10/13/2024 11:00 AM EST No reference ranges have been established for body fluids. Clinical correlation recommended. Salena RODRIGUEZ LAB BODY FLUIDS AND STOOLS ORDERABLES Performing Organization Address [facility] [[email or web address]] Co de Phone Number [facility] [address] [place] [address], [place] [phone] * pH, body fluid (10/13/2024 10:14 AM EST) pH, Fluid 8.5 See Comment pH 10/13/2024 11:[address] [facility] Peritoneal Fluid Non-blood Collection / Unknown 10/13/2024 10:14 AM EST 10/13/2024 10:21 AM EST [facility] - 10/13/2024 11:01 AM EST No reference ranges have been established for body fluids. Clinical correlation recommended. Salena RODRIGUEZ LAB BODY FLUIDS AND STOOLS ORDERABLES Performing Organization Address [facility] [[email or web address]] Co de Phone Number [facility] [address] [place] [address], [place] [phone] * [place] Paracentesis w Image Guidance (10/13/2024 10:12 AM EST) Anatomical Region Laterality Modality Abdomen Ultrasound 10/13/2024 12:1 6 PM EST Impressions 10/13/2024 3:51 PM EST Successful paracentesis of 6 L of clear yellow fluid without complications. Greater than 5 L of fluid drained, discussed with Dr. Yadira Teixeira, 50g of IV albumin infusion ordered for patient returning to floor. -------- FINAL REPORT -------- Dictated By: Bozena Vizcarra Dictated Date: 10/13/2024 12:16 ET Assigned Physician: Fern Diaz Reviewed and Electronically Signed By: Fern Diaz Signed Date: 10/13/2024 15:51 ET Workstation ID: [id number] Transcribed By: Self Edit Transcribed Date: 10/13/2024 12:24 ET Resident/PA/FRAME FIXER: Bozena Vizcarra Narrative 10/13/2024 3:51 PM EST HISTORY: Large volume ascites. TECHNIQUE: After written informed consent was obtained the patient was placed supine on the ultrasound stretcher and multiple images were obtained for characterization and localization of ascites. The skin was marked, prepped and draped in the usual sterile fashion. 2% lidocaine was used as local anesthetic. A paracentesis needle was advanced under gentle suction. When fluid aspirated the paracentesis catheter was threaded over the needle into the ascitic fluid. The needle was removed and the catheter was attached to tubing and then vacuum bottles. After completion of drainage the catheter was removed and a bandage was applied. The patient tolerated the procedure well and left the department in stable condition without any immediate complications. FINDINGS: Initial ultrasound images demonstrate large volume ascites. Pocket in right lower quadrant localized for drainage. Procedure Note Fern Diaz MD - 10/13/2024 HISTORY: Large volume ascites. TECHNIQUE: After written informed consent was obtained the patient wasplaced supine on the ultrasound stretcher and multiple images wereobtained for characterization and localization of ascites. The skin wasmarked, prepped and draped in the usual sterile fashion. 2% lidocaine wasused as local anesthetic. A paracentesis needle was advanced under gentlesuction. When fluid aspirated the paracentesis catheter was threaded overthe needle into the ascitic fluid. The needle was removed and the catheterwas attached to tubing and then vacuum bottles. After completion ofdrainage the catheter was removed and a bandage was applied. The patienttolerated the procedure well and left the department in stable conditionwithout any immediate complications. FINDINGS: Initial ultrasound images demonstrate large volume ascites. Pocket inright lower quadrant localized for drainage. IMPRESSION: Successful paracentesis of 6 L of clear yellow fluid withoutcomplications. Greater than 5 L of fluid drained, discussed with Dr.Nermina Teixeira, 50g of IV albumin infusion ordered for patient returningto floor. -------- FINAL REPORT -------- Dictated By: Bozena Vizcarra Dictated Date: 10/13/2024 12:16 ET Assigned Physician: Fern Diaz Reviewed and Electronically Signed By: Fern Diaz Signed Date: 10/13/2024 15:51 ET Workstation ID: [id number] Transcribed By: Self Edit Transcribed Date: 10/13/2024 12:24 ET Resident/PA/FRAME FIXER: Bozena Vizcarra Salena RODRIGUEZ IMG US PROCEDUR ES * Lipid panel with reflex to direct LDL (10/13/2024 5:24 AM EST) Cholesterol 125 0 - 200 mg/dL LAB CHEMISTRY METHOD 10/13/2024 6:43 AM [facility] Triglycerides 66 0 - 150 mg/dL LAB CHEMISTRY METHOD 10/13/2024 6:43 AM [facility] HDL 48 >=40 mg/dL LAB CHEMISTRY METHOD 10/13/2024 6:43 AM [facility] LDL Calculated 64 0 - 100 mg/dL LAB CHEMISTRY METHOD 10/13/2024 6:43 AM [facility] VLDL Cholesterol Luke 13.2 mg/dL LAB CHEMISTRY METHOD 10/13/2024 6:43 AM [facility] Non HDL Chol. (LDL+VLDL) 77 <145 mg/dL LAB CHEMISTRY METHOD 10/13/2024 6:43 AM [facility] Chol/HDL Ratio 2.6 0.0 - 4.4 LAB CHEMISTRY METHOD 10/13/2024 6:[address] [facility] Blood Venous blood specimen / Unknown Venipuncture / Unknown 10/13/2024 5:24 AM EST 10/13/2024 6:07 AM EST Salena RODRIGUEZ LAB BLOOD ORDER SUSAN [facility] [address] [place] [address], [place] [phone] * Lavender tube (10/13/2024 5:24 AM EST) Pathologist [facility] Extra Tube Hold for add-ons. 10/13/2024 8:[address] [facility] Comment:Auto resulted. Blood Venous blood specimen / Unknown Venipuncture / Unknown 10/13/2024 5:24 AM EST 10/13/2024 6:08 AM EST Aram Shearer MD LAB BLOOD ORDER SUSAN Performing Organization Address City/[facility]/ZIP Co de Phone Number [facility] [address] [place] [address], [place] [phone] * (ABNORMAL) Protein, total (10/13/2024 5:24 AM EST) Total Protein 5.7(L) 6.0 - 8.0 g/dL LAB CHEMISTRY METHOD 10/13/2024 4:[address] [facility] Blood Venous blood specimen / Unknown Venipuncture / Unknown 10/13/2024 5:24 AM EST 10/13/2024 6:07 AM EST Andree RODRIGUEZ LAB BLOOD ORDERABLE S Performing Organization Address City/[facility]/ZIP Co de Phone Number [facility] [address] [place] [address], [place] [phone] * (ABNORMAL) Lactate dehydrogenase (10/13/2024 5:24 AM EST) [facility] [address] LDH 267(H) 120 - 246 unit/L LAB CHEMISTRY METHOD 10/13/2024 4:44 PM [facility] Blood Venous blood specimen / Unknown Venipuncture / Unknown 10/13/2024 5:24 AM EST 10/13/2024 6:07 AM EST Andree RODRIGUEZ LAB BLOOD ORDERABLE S [facility] [address] [place] [address], * (ABNORMAL) Basic metabolic panel (10/13/2024 5:24 AM EST) Only the most recent of2 resultswithin the time period is included. [facility] [address] Sodium 141 133 - 145 mmol/L LAB CHEMISTRY METHOD 10/13/2024 6:43 AM [facility] Potassium 3.5 3.5 - 5.5 mmol/L LAB CHEMISTRY METHOD 10/13/2024 6:43 AM [facility] Chloride 110 96 - 110 mmol/L LAB CHEMISTRY METHOD 10/13/2024 6:43 AM [facility] CO2 24 21 - 32 mmol/L LAB CHEMISTRY METHOD 10/13/2024 6:43 AM [facility] Anion Gap 7 3 - 11 LAB CHEMISTRY METHOD 10/13/2024 6:43 AM [facility] Glucose 185(H) 70 - 100 mg/dL LAB CHEMISTRY METHOD 10/13/2024 6:43 AM [facility] BUN 11 5 - 25 mg/dL LAB CHEMISTRY METHOD 10/13/2024 6:43 AM [facility] Creatinine 0.69 0.50 - 1.10 mg/dL LAB CHEMISTRY METHOD 10/13/2024 6:[address] [facility] eGFR 98 >=60 mL/min/1. 73m2 LAB CHEMISTRY METHOD 10/13/2024 6:[address] [facility] Comment:Calculation based on the??Chronic Kidney Disease Epidemiology Collaboration (CKD-EPI) equation refit??without adjustment for race. BUN/Creatinine Ratio 15.9 LAB CHEMISTRY METHOD 10/13/2024 6:[address] [facility] Calcium 8.2(L) 8.5 - 10.5 mg/dL LAB CHEMISTRY METHOD 10/13/2024 6:[address] [facility] Blood Venous blood specimen / Unknown Venipuncture / Unknown 10/13/2024 5:24 AM EST 10/13/2024 6:07 AM EST Yadira Teixeira MD LAB BLOOD ORDERABLES Performing Organization Address City/[facility]/ZIP Co de Phone Number [facility] [address] [place] [address], * Troponin I high sensitivity (10/12/2024 2:06 PM EST) Only the most recent of2 resultswithin the time period is included. High Sensitivity Troponin I 9 <=54 ng/L LAB CHEMISTRY METHOD 10/12/2024 2:[address] [facility] Blood Venous blood specimen / Unknown Venipuncture / Unknown 10/12/2024 2:06 PM EST 10/12/2024 2:[address] [facility] - 10/12/2024 2:43 PM EST High levels of biotin in samples may falsely decrease hsTroponin values. ??Use caution when interpreting hsTroponin results in patients taking biotin who exhibit renal impairment (eGFR <60) or in patients taking more than 20 mg/day of biotin. Edil Zhang DO LAB BLOOD ORDERABLES Performing Organization Address City/[facility]/ZIP Co de Phone Number [facility] [address] [place] [address], * XR Chest 2 Views (10/12/2024 12:37 PM EST) Anatomical Region Laterality Modality Body Radiographic Amelia ging 10/12/2024 12:4 1 PM EST Impressions 10/12/2024 12:44 PM EST Small right-sided effusion that appears to extend along the lateral aspect of the chest. ??Volume loss at the posterior right lung base similar to prior CT examination. ??No acute infiltrate the left chest. ??Mediastinum appears normal. -------- FINAL REPORT -------- Dictated By: Fernando Portillo Dictated Date: 10/12/2024 12:41 ET Assigned Physician: Fernando Portillo Reviewed and Electronically Signed By: Fernando Portillo Signed Date: 10/12/2024 12:44 ET Workstation ID: [id number] Transcribed By: Self Edit Transcribed Date: 10/12/2024 12:41 ET Narrative 10/12/2024 12:44 PM EST Frontal and lateral view of the chest COMPARISON: CT chest June 2024. ??Chest radiograph May 2024 INDICATION: Abdominal pain Procedure Note Fernando Portillo MD - 10/12/2024 Frontal and lateral view of the chest COMPARISON: CT chest June 2024. Chest radiograph May 2024 INDICATION: Abdominal pain IMPRESSION: Small right-sided effusion that appears to extend along the lateral aspectof the chest. Volume loss at the posterior right lung base similar toprior CT examination. No acute infiltrate the left chest. Mediastinumappears normal. -------- FINAL REPORT -------- Dictated By: Fernando Portillo Dictated Date: 10/12/2024 12:41 ET Assigned Physician: Fernando Portillo Reviewed and Electronically Signed By: Fernando Portillo Signed Date: 10/12/2024 12:44 ET Workstation ID: [id number] Transcribed By: Self Edit Transcribed Date: 10/12/2024 12:41 ET Edil Antonio Vicente DO IMG XR PROCEDURES * (ABNORMAL) CBC auto differential (10/12/2024 12:06 PM EST) WBC 2.9(L) 4.8 - 10.8 K/mcL LAB HEMETOLOGY METHOD 10/12/2024 1:31 PM [facility] RBC 2.90(L) 3.80 - 4.80 M/mcL LAB HEMETOLOGY METHOD 10/12/2024 1:31 PM [facility] Hemoglobin 8.4(L) 11.5 - 16.0 g/dL LAB HEMETOLOGY METHOD 10/12/2024 1:31 PM [facility] Hematocrit 25.8(L) 35.0 - 47.0 % LAB HEMETOLOGY METHOD 10/12/2024 1:31 PM [facility] MCV 88.7 79.0 - 98.0 FL LAB HEMETOLOGY METHOD 10/12/2024 1:31 PM [facility] MCH 28.9 27.0 - 32.0 pcg LAB HEMETOLOGY METHOD 10/12/2024 1:31 PM [facility] MCHC 32.6 32.0 - 37.0 g/dL LAB HEMETOLOGY METHOD 10/12/2024 1:31 PM [facility] RDW 15.0 11.0 - 15.0 % LAB HEMETOLOGY METHOD 10/12/2024 1:31 PM [facility] Platelets 32(L) 130 - 400 K/mcL LAB HEMETOLOGY METHOD 10/12/2024 1:31 PM [facility] Comment:reviewed by slide MPV 10.2 7.0 - 11.0 FL LAB HEMETOLOGY METHOD 10/12/2024 1:31 PM [facility] NRBC 0.0 <1.0 % LAB HEMETOLOGY METHOD 10/12/2024 1:31 PM [facility] NRBC Absolute 0.00 <0.10 K/mcL LAB HEMETOLOGY METHOD 10/12/2024 1:31 PM [facility] Neutrophils Relative 68.2 % LAB HEMETOLOGY METHOD 10/12/2024 1:31 PM [facility] Lymphocytes Relative 15.4 % LAB HEMETOLOGY METHOD 10/12/2024 1:31 PM [facility] Monocytes Relative 9.6 % LAB HEMETOLOGY METHOD 10/12/2024 1:31 PM [facility] Eosinophils Relative 5.8 % LAB HEMETOLOGY METHOD 10/12/2024 1:31 PM [facility] Basophils Relative 0.7 % LAB HEMETOLOGY METHOD 10/12/2024 1:31 PM [facility] Immature Granulocytes Relative 0.3 % LAB HEMETOLOGY METHOD 10/12/2024 1:31 PM [facility] Neutrophils Absolute 1.99 1.50 - 7.00 K/mcL LAB HEMETOLOGY METHOD 10/12/2024 1:31 PM [facility] Lymphocytes Absolute 0.45(L) 1.00 - 5.00 K/mcL LAB HEMETOLOGY METHOD 10/12/2024 1:31 PM [facility] Monocytes Absolute 0.28 0.20 - 1.00 K/mcL LAB HEMETOLOGY METHOD 10/12/2024 1:31 PM [facility] Eosinophils Absolute 0.17 0.00 - 0.50 K/mcL LAB HEMETOLOGY METHOD 10/12/2024 1:31 PM [facility] Basophils Absolute 0.02 0.00 - 0.20 K/mcL LAB HEMETOLOGY METHOD 10/12/2024 1:31 PM [facility] Immature Granulocytes Absolute 0.01 0.00 - 0.03 K/[facility] LAB HEMETOLOGY METHOD 10/12/2024 1:[address] [facility] Blood Venous blood specimen / Unknown Venipuncture / Unknown 10/12/2024 12:06 PM EST 10/12/2024 12:39 PM EST Edil Zhang DO LAB BLOOD ORDERABLES Performing Organization Address City/[facility]/ZIP Co de Phone Number [facility] [address] [place] [address], [place] [phone] * Activated partial thromboplastin time (10/12/2024 12:06 PM EST) aPTT 32.6 24.1 - 39.3 sec LAB COAGULATION METHOD 10/12/2024 12:[address] [facility] Blood Venous blood specimen / Unknown Venipuncture / Unknown 10/12/2024 12:06 PM EST 10/12/2024 12:39 PM EST Edil Zhang DO LAB BLOOD ORDERABLES Performing Organization Address [facility] [[email or web address]] Co de Phone Number [facility] [address] [place] [address], [place] [phone] * (ABNORMAL) Prothrombin time with INR (10/12/2024 12:06 PM EST) Protime 14.9(H) 10.6 - 13.9 sec LAB COAGULATION METHOD 10/12/2024 12:[address] [facility] INR 1.2 LAB COAGULATION METHOD 10/12/2024 12:[address] [facility] Blood Venous blood specimen / Unknown Venipuncture / Unknown 10/12/2024 12:06 PM EST 10/12/2024 12:39 PM EST Edil Zhang DO LAB BLOOD ORDERABLES Performing Organization Address City/[facility]/ZIP Co de Phone Number [facility] [address] [place] [address], * Alanine aminotransferase (10/12/2024 12:06 PM EST) ALT (SGPT) 25 10 - 60 unit/L LAB CHEMISTRY METHOD 10/12/2024 1:[address] [facility] Blood Venous blood specimen / Unknown Venipuncture / Unknown 10/12/2024 12:06 PM EST 10/12/2024 12:39 PM EST Edil Zhang DO LAB BLOOD ORDERABLES [facility] [address] [place] [address], [place] [phone] * Aspartate aminotransferase (10/12/2024 12:06 PM EST) AST (SGOT) 34 10 - 42 unit/L LAB CHEMISTRY METHOD 10/12/2024 1:[address] [facility] Blood Venous blood specimen / Unknown Venipuncture / Unknown 10/12/2024 12:06 PM EST 10/12/2024 12:39 PM EST Edil Zhang DO LAB BLOOD ORDERABLES [facility] [address] [place] [address], * (ABNORMAL) Alkaline phosphatase (10/12/2024 12:06 PM EST) Alkaline Phosphatase 157(H) 42 - 121 unit/L LAB CHEMISTRY METHOD 10/12/2024 1:[address] [facility] Blood Venous blood specimen / Unknown Venipuncture / Unknown 10/12/2024 12:06 PM EST 10/12/2024 12:39 PM EST Edil Zhang DO LAB BLOOD ORDERABLES Performing Organization Address [facility]/ZIP Co de Phone Number [facility] [address] [place] [address], [place] [phone] * (ABNORMAL) B-type natriuretic peptide (10/12/2024 12:06 PM EST) Pathologist [facility] BNP 234(H) <=100 pcg/mL LAB CHEMISTRY METHOD 10/12/2024 1:[address] [facility] Blood Venous blood specimen / Unknown Venipuncture / Unknown 10/12/2024 12:06 PM EST 10/12/2024 12:39 PM EST Edil Zhang DO LAB BLOOD ORDERABLES Performing Organization Address [facility] [[email or web address]] Co de Phone Number [facility] [address] [place] [address], [place] [phone] * Lipase (10/12/2024 12:06 PM EST) Pathologist [facility] Lipase 59 13 - 75 unit/L LAB CHEMISTRY METHOD 10/12/2024 1:[address] [facility] Blood Venous blood specimen / Unknown Venipuncture / Unknown 10/12/2024 12:06 PM EST 10/12/2024 12:39 PM EST Edil Zhang DO LAB BLOOD ORDERABLES Performing Organization Address City/[facility]/ZIP Co de Phone Number [facility] [address] [place] [address], [place] [phone] * Bilirubin, total (10/12/2024 12:06 PM EST) Pathologist [facility] Total Bilirubin 1.2 0.0 - 1.4 mg/dL LAB CHEMISTRY METHOD 10/12/2024 1:[address] [facility] Blood Venous blood specimen / Unknown Venipuncture / Unknown 10/12/2024 12:06 PM EST 10/12/2024 12:39 PM EST Edil Zhang DO LAB BLOOD ORDERABLES Performing Organization Address City/[facility]/ZIP Co de Phone Number [facility] [address] [place] [address], [place] [phone] * (ABNORMAL) Ammonia (10/12/2024 12:06 PM EST) Pathologist [facility] Ammonia 42(H) 11 - 35 mcmol/L LAB CHEMISTRY METHOD 10/12/2024 1:[address] [facility] Blood Venous blood specimen / Unknown Venipuncture / Unknown 10/12/2024 12:06 PM EST 10/12/2024 12:39 PM EST Edil Zhang DO LAB BLOOD ORDERABLES Performing Organization Address [facility] de Phone Number [facility] [address] [place] [address], [place] [phone] * ECG 12 lead (10/12/2024 11:18 AM EST) Pathologist [facility] Ventricular Rate ECG 76 BPM GEMUSE Atrial Rate 76 BPM GEMUSE P-R Interval 136 ms GEMUSE QRS Duration 120 ms GEMUSE Q-T Interval 426 ms GEMUSE QTc 479 ms GEMUSE P Wave Dora 54 degrees GEMUSE R Dora 54 degrees GEMUSE T Dora -13 degrees GEMUSE ECG Interpretation Normal sinus rhythm Right bundle branch block When compared with ECG of 21-JUN-2024 00:07, No significant change was found Confirmed by INGE MADISON ([id number]) on 10/13/2024 3:56:18 AM GEMUSE 10/12/2024 11:1 8 AM EST 10/13/2024 3:56 AM EST Edil Zhang DO ECG ORDERABLES Performing Organization Address [facility] [[email or web address]] Co de Phone Number GEMUSE * ECG-Outside (10/12/2024) Provider Onbase MD ECG ORDERABLES * ECG-Annotated (10/12/2024) Provider Onbase MD ECG ORDERABLES from Last 3 Months Advance Directives Documents on File Type Date Recorded Patient Shotweld Operator Expl anation Health Care Decision (hx) 12/28/2023 AD BRANTLEY DIRECTIVE Health Care Decision (hx) 12/28/2023 AD BRANTLEY DIRECTIVE Health Care Decision (hx) 12/28/2023 AD BRANTLEY DIRECTIVE Health Care Decision (hx) 12/28/2023 AD BRATNLEY DIRECTIVE Health Care Decision (hx) 12/28/2023 AD BRANTLEY DIRECTIVE Health Care Decision (hx) 12/28/2023 AD BRANTLEY DIRECTIVE Health Care Decision (hx) 12/28/2023 AD BRANTLEY DIRECTIVE Health Care Decision (hx) 12/14/2020 AD BRANTLEY DIRECTIVE Health Care Decision (hx) 12/14/2020 AD BRANTLEY DIRECTIVE Health Care Decision (hx) 12/14/2020 AD BRANTLEY DIRECTIVE Health Care Decision (hx) 12/14/2020 AD BRANTLEY DIRECTIVE Health Care Decision (hx) 12/14/2020 AD BRANTLEY DIRECTIVE Health Care Decision (hx) 12/14/2020 AD BRANTLEY DIRECTIVE Health Care Decision (hx) 12/14/2020 AD BRANTLEY DIRECTIVE Health Care Decision (hx) 12/14/2020 AD BRANTLEY DIRECTIVE Health Care Decision (hx) 12/14/2020 AD BRANTLEY DIRECTIVE Health Care Decision (hx) 12/14/2020 AD BRANTLEY DIRECTIVE Health Care Decision (hx) 12/14/2020 AD BRANTLEY DIRECTIVE Health Care Decision (hx) 12/14/2020 AD BRANTLEY DIRECTIVE Health Care Decision (hx) 12/14/2020 AD BRANTLEY DIRECTIVE Health Care Decision (hx) 12/14/2020 AD BRANTLEY DIRECTIVE Health Care Decision (hx) 12/14/2020 AD BRANTLEY DIRECTIVE Health Care Decision (hx) 12/14/2020 AD BRANTLEY DIRECTIVE Health Care Decision (hx) 12/14/2020 AD BRANTLEY DIRECTIVE Health Care Decision (hx) 12/14/2020 AD BRANTLEY DIRECTIVE Health Care Decision (hx) 12/14/2020 AD BRANTLEY DIRECTIVE Health Care Decision (hx) 12/14/2020 AD BRANTLEY DIRECTIVE Health Care Decision (hx) 12/14/2020 AD BRANTLEY DIRECTIVE Health Care Decision (hx) 12/14/2020 AD BRANTLEY DIRECTIVE Health Care Decision (hx) 12/14/2020 AD BRANTLEY DIRECTIVE Health Care Decision (hx) 12/14/2020 AD BRANTLEY DIRECTIVE Health Care Decision (hx) 12/14/2020 AD BRANTLEY DIRECTIVE Health Care Decision (hx) 12/14/2020 AD BRANTLEY DIRECTIVE Health Care Decision (hx) 12/14/2020 AD BRANTLEY DIRECTIVE Health Care Decision (hx) 12/14/2020 AD BRANTLEY DIRECTIVE Health Care Decision (hx) 12/14/2020 AD BRANTLEY DIRECTIVE Health Care Decision (hx) 12/14/2020 AD BRANTLEY DIRECTIVE Health Care Decision (hx) 12/14/2020 AD BRANTLEY DIRECTIVE Health Care Decision (hx) 12/14/2020 AD BRANTLEY DIRECTIVE Health Care Decision (hx) 12/14/2020 AD BRANTLEY DIRECTIVE Health Care Decision (hx) 12/14/2020 AD BRANTLEY DIRECTIVE Health Care Decision (hx) 12/11/2020 AD BRANTLEY DIRECTIVE Health Care Decision (hx) 12/11/2020 AD BRANTLEY DIRECTIVE Health Care Decision (hx) 12/11/2020 AD BRANTLEY DIRECTIVE Health Care Decision (hx) 12/11/2020 AD BRANTLEY DIRECTIVE Health Care Decision (hx) 12/11/2020 AD BRANTLEY DIRECTIVE Health Care Decision (hx) 12/11/2020 AD BRANTLEY DIRECTIVE Health Care Decision (hx) 12/11/2020 AD BRANTLEY DIRECTIVE Health Care Decision (hx) 12/11/2020 AD BRANTLEY DIRECTIVE Health Care Decision (hx) 12/11/2020 AD BRANTLEY DIRECTIVE Health Care Decision (hx) 12/11/2020 AD BRANTLEY DIRECTIVE Health Care Decision (hx) 12/11/2020 AD BRANTLEY DIRECTIVE Health Care Decision (hx) 12/11/2020 AD BRANTLEY DIRECTIVE Health Care Decision (hx) 12/11/2020 AD BRANTLEY DIRECTIVE Health Care Decision (hx) 12/11/2020 AD BRANTLEY DIRECTIVE Health Care Decision (hx) 12/11/2020 AD BRANTLEY DIRECTIVE Health Care Decision (hx) 12/11/2020 AD BRANTLEY DIRECTIVE Health Care Decision (hx) 12/11/2020 AD BRANTLEY DIRECTIVE Health Care Decision (hx) 12/11/2020 AD BRANTLEY DIRECTIVE Health Care Decision (hx) 12/11/2020 AD BRANTLEY DIRECTIVE Health Care Decision (hx) 12/11/2020 AD BRANTLEY DIRECTIVE Health Care Decision (hx) 12/11/2020 AD BRANTLEY DIRECTIVE Health Care Decision (hx) 12/11/2020 AD BRANTLEY DIRECTIVE Health Care Decision (hx) 12/11/2020 AD BRANTLEY DIRECTIVE Health Care Decision (hx) 12/11/2020 AD BRANTLEY DIRECTIVE Health Care Decision (hx) 12/11/2020 AD BRANTLEY DIRECTIVE Health Care Decision (hx) 12/11/2020 AD BRANTLEY DIRECTIVE Health Care Decision (hx) 12/11/2020 AD BRANTLEY DIRECTIVE Health Care Decision (hx) 12/11/2020 AD BRANTLEY DIRECTIVE Health Care Decision (hx) 12/11/2020 AD BRANTLEY DIRECTIVE Health Care Decision (hx) 12/11/2020 AD BRANTLEY DIRECTIVE Health Care Decision (hx) 12/11/2020 AD BRANTLEY DIRECTIVE Health Care Decision (hx) 12/11/2020 AD BRANTLEY DIRECTIVE Health Care Decision (hx) 12/11/2020 AD BRANTLEY DIRECTIVE Health Care Decision (hx) 12/11/2020 AD BRANTLEY DIRECTIVE * Full Code - Default (Latest Code Status on File) Date Activated Date Inactivated Comments 10/12/2024 5:02 PM 10/14/2024 2:42 PM This is or taqueria is used when code status has not been discussed with the patient, or code status is otherwise unknown/unconfirmed To update the patient's code status, place a code status order. Do not modify or discontinue any currently active code status orders. Care Teams Table And Desk Finisher Relationship Specialty Start Date End Date Yash Arredondo NP [address] [place] [address] [facility] - General 09/15/13
--- OUTSIDE RECORDS SUMMARY | 2024-11-18 17:15 | XMS_ITS | Encounter Summary ---
Author Organization [employer] Address [address] [facility] 7t [place] [address] Care Team Providers Care Corporate Concierge Name Role Phone [facility] Primary Care Provider [phone] Andree Ulloa PharmD Unavailable [phone] Maude Dennis RN Unavailable [phone] Reason for Visit * Reason Onset Date Comments FYI 09/28/2024 Encounter Details Date Type Department Care Team (Late st Contact Info) Description 09/28/2024 Telephone [facility] [address] [place], [place] [phone] [facility], [facility] [address] [place], [place] [phone] FYI Social History Tobacco Use Types Packs/Day Years Used Date Smoking Tobacco: Former Cigarettes Q uit: 1991 Passive Smoke Exposure: Never Smokeless Tobacco: Never Alcohol Use Standard Drinks/Week Comments Never 0 (1 standard drink = 0.6 oz pur e alcohol) Depression Answer Date Recorded Patient Health Questionnaire-9 Score 11 05/06/2024 Patient Health Questionnaire-9 Score 11 05/06/2024 Last PHQ-9: Questionnaire Data Not on file 0 05/06/2024 Housing Stability Answer Date Recorded What is [...] Answer Date Recorded Patient Health Questionnaire-2 Score 4 05/06/2024 Internet Access Answer Date Recorded Internet Access Q1 Yes 09/07/2024 Internet Access Q2 Not on file 09/07/2024 Comments No Sex and Gender Information Value Date Recorded Sex Assigned at Female 08/20/2022 10:14 AM EDT Legal Sex Female 10:14 AM EDT Gender Identity Female 08/20/2022 10:14 AM EDT Sexual Orientation Straight 08/20/2022 10 :14 AM EDT documented as of this encounter Miscellaneous Notes * Telephone Encounter - Julia Patino - 09/28/2024 2:55 PM EST Tc from Natalie at [facility] calling to inform provider pt refused OT evaluation. If any questions contact Natalie at [phone] documented in this encounter Plan of Treatment Upcoming Encounters Date Type Department Care Team (Late st Contact Info) Description 12/14/2024 1:30 PM EST Office Visit [facility] [address] [place] [address] Ritesh, Virgen, OD [address] [place] [address] 12/18/2024 1:15 PM EST Office Visit [facility] [address] [place] [address] Susan, Ana, TECHNICAL PRODUCER [address] [place] [address] documented as of this encounter Goals Goal [...] 11:08 AM EST) No Andree Ulloa PharmD documented as of this encounter Visit Diagnoses Not on filedocumented in this encounter Additional Health Concerns Assessment Noted Time PHQ-9 Depression Total Score: 11 024 10:29 AM EDT documented as of this encounter Care Teams Corporate Concierge Relationship Specialty Start Date End Date Ana Davis FNP [address] [place] [address] PCP - General Family Medicine 04/05/22 Andree Ulloa, Cesia [address] [place] [address] Pharmacist Internal Medicine 05/09/23 Maude Dennis, RN [address] [place] [address] Inspector Rag SortingPublications Distribution Clerk 08/27/24 Flavia Segundo Molder ApprenticePublications Distribution Clerk 10/10/23 [place] 08/14/24 Gabrielle Fitch Molder ApprenticePublications Distribution Clerk 11/05/24 documented as of this encounter
--- OUTSIDE RECORDS SUMMARY | 2024-11-18 17:16 | XMS_ITS | Encounter Summary ---
Author Organization [email or web address] Address [address] [facility] 7t [place] [address] Care Team Providers Care Process Development Associate Name Role Phone Ana Davis HEAD WORKER Primary Care Provider [phone] Andree Ulloa PharmD Unavailable [phone] Maude Dennis RN Unavailable [phone] Reason for Visit * Reason Onset Date Comments Care Management 10/27/2024 C3CM- f/u call. Unable to leave v/m. Encounter Details Date Type Department Care Team (Late st Contact Info) Description 10/27/2024 Telephone [facility] MEDICINE [address] [place] [address] Maude Dennis, RN [address] [place], [place] [phone] Care Management (C3CM- f/u call. Unable to leave v/m.) Social History Tobacco Use Types Packs/Day Years [...] got money to buy more: Sometimes True 11/18/ 2024 Within the past 12 months,th e food [...] encounter Miscellaneous Notes * Telephone Encounter - Maude Dennis RN - 10/27/2024 9:13 AM EST CM Maude Dennis RN placed outbound call for a follow up call to patient. No answer at this time. CM was unable to leave a voicemail. Message states the person you are calling is not able to receive calls at this time . CM will follow up with patient within 10 business days. documented in this encounter Plan of Treatment Upcoming Encounters Date Type Department Care Team (Late st Contact Info) Description 12/14/2024 1:30 PM EST Office Visit [facility] OPTOMETRY [address] [place] [address] Virgen Awad, OD [address] [place] [address] 12/18/2024 1:15 PM EST Office Visit [facility] MEDICINE [address] [place] [address] [facility] [address] [place] [address] documented as of this encounter Goals Goal [...] documented as of this encounter Care Teams Process Development Associate Relationship Specialty Start Date End Date [facility] [address] [place] [address] PCP - General Family Medicine 04/05/22 Andree Ulloa PharmD [address] [place] [phone] Pharmacist Internal Medicine 05/09/23 Maude Dennis, MARQUITA [address] [place] [address] Employment Legal AssistantRisk Mgr 08/27/24 Flavia Segundo Reinforced Concrete InspectorRisk Mgr 10/10/23 YASSSU 08/14/24 documented as of this encounter
--- OUTSIDE RECORDS SUMMARY | 2024-11-18 17:16 | XMS_ITS | Encounter Summary ---
Author Organization [employer] Address [address] [facility] [address] [place] [address] Care Team Providers Care Hat Blocking Operator Name Role Phone Ana Davis Primary Care Provider Andree Ulloa PharmD Unavailable [phone] Maude Dennis RN Unavailable [phone] Reason for Referral * Consultation (Routine) - Closed Specialty Diagnoses / Procedures Referred By Ivelisse segura Referred To Contact Physical Therapy Diagnoses Gait instability Ana Davis FNP [address] [place] [address] Phone: tel: fax: [address] [place] [address] Phone: tel: fax: Referral ID Status Reason Start Date Expiration Date V isits Requested Visits Authorized [id number] Closed Specialty Services Required 11/03/2024 11/03/2025 20 20 Encounter Details Date Type Department Care Team (Late st Contact Info) Description 11/02/2024 Orders Only [facility] [address] [place], [place] [phone] Ana Davis FNP [address] [place] [address] Gait instability (Primary Dx) Social History Tobacco Use Types Packs/Day Years [...] Description 12/14/2024 1:30 PM EST Office Visit [facility] OPTOMETRY [address] [place] [address] Ritesh, Virgen, OD [address] [place] [address] 12/18/2024 1:15 PM EST Office Visit [facility] MEDICINE [address] [place] [address] [facility] [address] [place] [address] Scheduled Referrals Name Type Priority Associated Diagnoses Orde r Schedule Referral to Physical Therapy Outpatient Referral Routine Gait instability Expected: 11/02/2024 (Approximate), Expires: 11/02/2025 documented as of this encounter Goals Goal Patient Goal Type Associated Problems Recent Progress Patient-Stated? Author Check your blood sugar as directed General On track( 023 4:12 PM EDT) No Jacob Llanos, PharmD Note: Use CGM, ensuring sensor is scanned at least once every 8 hours to capture 24H data. Check BG manually, as directed. Take your medications every day Lifestyle Worsening( 4:12 PM EDT) No Jacob Llanos, PharmD Hemoglobin A1c < 8 Result Component 7.6( 4 11:08 AM EST) No Andree Ulloa, ChelyD documented as of this encounter Visit Diagnoses Diagnosis Gait instability- Primary Abnormality of gait documented in this encounter Additional Health Concerns Assessment Noted Time PHQ-9 Depression Total Score: 11 024 10:29 AM EDT documented as of this encounter Care Teams Hat Blocking Operator Relationship Specialty Start Date End Date [facility] [address] [place] [address] PCP - General Family Medicine 04/05/22 Andree Ulloa, PharmD [address] [place] [address] Pharmacist Internal Medicine 05/09/23 Maude Dennis, MARQUITA [address] [place] [address] Mri AssistantCenter Medical And Lab Director 08/27/24 Flavia Segundo Panel Flow Machine OperatorCenter Medical And Lab Director 10/10/23 [place] 08/14/24 documented as of this encounter
--- OUTSIDE RECORDS SUMMARY | 2024-11-18 17:16 | XMS_ITS | Encounter Summary ---
Author Organization [employer] Address [address] [facility] 7t [place] [address] Care Team Providers Care Family Service Center Director Name Role Phone Ana Davis RECREATIONAL VEHICLE RESORT MANAGER Primary Care Provider [phone] Andree Ulloa PharmD Unavailable [phone] Maude Dennis RN Unavailable [phone] Encounter Details Date Type Department Care Team ([facility] Contact Info) Description 01/21/2023 Telephone [facility] MEDICINE [address] [place], [place] [phone] Kimberly Donaldson LPN Social History Tobacco Use Types Packs/Day Years Used Date Smoking Tobacco: Former Cigarettes Q uit: 1991 Smokeless Tobacco: Never Alcohol Use Standard Drinks/Week Comments Never 0 (1 standard drink = 0.6 oz pur e alcohol) Depression Answer Date Recorded Patient Health Questionnaire-9 Score 0 12/03/2022 Depression Answer Date Recorded Patient Health Questionnaire-2 Score 0 12/03/2022 Comments Unknown Sex and Gender Information Value Date Recorded Sex Assigned at Female 08/20/2022 10:14 AM EDT Legal Sex Female 10:14 AM EDT Gender Identity Female 08/20/2022 10:14 AM EDT Sexual Orientation Straight 08/20/2022 10 :14 AM EDT documented as of this encounter Plan of Treatment Upcoming Encounters Date Type Department Care Team ([facility] Contact Info) Description 12/14/2024 1:30 PM EST Office Visit [facility] OPTOMETRY [address] [place], [place] [phone] Virgen Awad, OD [address] [place], [place] [phone] 12/18/2024 1:15 PM EST Office Visit [facility] MEDICINE [address] [place] [address] Ana Davis [facility] [address] [place] [address] documented as of this encounter Visit Diagnoses Not on filedocumented in this encounter Additional Health Concerns Assessment Noted Time PHQ-9 Depression Total Score: 0 12/03/19 10:53 AM EST documented as of this encounter Care Teams Family Service Center Director Relationship Specialty Start Date End Date Ana Davis FNP [address] [place] [address] PCP - General Family Medicine 04/05/22 Andree Ulloa PharmD [address] [place] [address] Pharmacist Internal Medicine 05/09/23 Maude Dennis, MARQUITA [address] [place] [id number] Director Client ServicesFelt Cutting Machine Operator 08/27/24 Flavia Segundo Tourist EscortFelt Cutting Machine Operator 10/10/23 [place] 08/14/24 Gabrielle Fitch Tourist EscortFelt Cutting Machine Operator 11/05/24 documented as of this encounter
--- OUTSIDE RECORDS SUMMARY | 2024-11-18 17:16 | XMS_ITS | Clinical Summary ---
Author Organization [facility] Address [address] [facility] [address] [place] [address] Phone Care Team Providers Care Furniture Maker Name Role Phone Unavailable Primary Care Provider Unavailabl e Allergies Active Allergy Reactions Criticality Noted Date Comments Penicillin G 01/30/2023 Penicillins Other (see comments) 12/05/2010 Medications spironolactone (ALDACTONE) 50 MG tablet Take 50 mg by mouth in the morning. 3 Active propranolol (INDERAL) 10 MG tablet Take 10 mg by mouth in the morning and 10 mg at noon and 10 mg in the evening. 3 Active metoprolol tartrate 25 MG tablet Take 25 mg by mouth 0 Active losartan (COZAAR) 25 MG tablet Take 25 mg by mouth in the morning. 3 Active Insulin Pen Needle (Pen [place] 01/03 ) 31G X 5 MM misc Inject under the skin Active insulin lispro (HumaLOG) 100 UNIT/ML injection Inject 12 Units under the skin 3 Active insulin glargine (Lantus SoloStar) 100 UNIT/ML injection Inject 50 Units under the skin every night 3 Active hydrocortisone 2.5 % ointment APPLY TO AFFECTED AREA TOPICALLY 2 TIMES A DAY NEEDED FOR ITCHING 3 Active Dulaglutide (Trulicity) 0.75 MG/0.5ML solution pen-injector inject (0.75MG) by subcutaneous route every week 2 Active clindamycin (CLEOCIN) 300 MG capsule TAKE 1 CAPSULE BY MOUTH 3 TIMES A DAY FOR 5 DAYS 3 Active Acetaminophen Extra Strength 500 MG tablet Take 500 mg by mouth every 6 (six) hours if needed 3 Active aspirin 81 MG chewable tablet Chew 81 mg 0 Active cefpodoxime (VANTIN) 200 MG tablet TAKE 1 TABLET BY MOUTH 2 TIMES PER DAY. 3 Active Active Problems Problem Noted Date Diagnosed Date Chronic kidney disease, stage 2 (mild) 3 Cholecystectomy 03/14/2023 Ligation of fallopian tube 03/14/2023 Internal carotid artery stenosis 03/10/2023 Hypo-osmolality and hyponatremia 03/10/2023 Abnormal gait 03/10/2023 Overview (03/14/2023): ?? Referred to PT 11/2022 for gait assistance evaluation Patient encounter status 12/03/2022 Hypervolemia 10/17/2022 Cirrhosis of liver 04/21/2018 Morbid obesity 04/21/2018 Nonalcoholic steatohepatitis (QURESHI) 04/21/2018 Osteoarthritis of multiple joints 04/21/2018 Schizophrenia 04/21/2018 Tardive dyskinesia 04/21/2018 Thrombocytopenia 04/21/2018 Type 2 diabetes mellitus without complication Immunizations Name Administration Dates Next Due Hepatitis B 10/18/2022,11/02/2019,05/16/2015 Influenza Split 07/29/2013,08/11/2012 Influenza, Quadrivalent, Preservative Free 10/05,11/02/2019 Influenza, Quadrivalent, With Preservative 09/08,08/06/2016,08/17/2015 Influenza, Unspecified 11/29/2009,09/09/2009 Pneumococcal Conjugate Pcv 20 12/03/2022 Pneumococcal Polysaccharide 07/29/2013, 7 Shingrix 10/18/2022 Td 12/01/1997 Tdap 12/03/2022,11/27/2012 Family History Relation Status Comments Father Mother Social History Tobacco Use Types Packs/Day Years Used Date Smoking Tobacco: Never Smokeless Tobacco: Never Tobacco Cessation:Counseling Given: Not Answered Alcohol Use Standard Drinks/Week Comments Never 0 (1 standard drink = 0.6 oz pur e alcohol) Comments Unknown Sex and Gender Information Value Date Recorded Sex Assigned at Not on file Legal Sex Female 9:29 AM EDT Gender Identity Not on file Sexual Orientation Not on file Last Filed Vital Signs Vital Sign Reading Time Taken Comments Blood Pressure 118/60 09/02/2023 2:22 PM EST Pulse 62 09/02/2023 2:22 PM EST Temperature - - Respiratory Rate - - Oxygen Saturation 97% 09/02/2023 2:22 PM EST Inhaled Oxygen Concentration - - Weight 85.8 kg (189 lb 3.2 oz) 09/02/2023 2:22 P M EST Height - - Body Mass Index - - Plan of Treatment Upcoming Encounters Date Type Department Care Team (Late st Contact Info) Description 01/18/2025 3:00 PM EDT Office Visit [facility] [address] [address] [place] [address] Rigo Freed MD [address] [facility] [address] [place] [address] Health Maintenance Due Date Last Done Comments Breast Cancer Screening 1961 Colorectal Cancer Screening: Annual FOBT 2010 Colorectal Cancer Screening: Colonoscopy 2010 Colorectal Cancer Screening: Sigmoidoscopy 2010 Hepatitis B Vaccine (1 of 3 - Risk 3-dose series) 2021 10/18/2022, 11/02/2019, 05/16/2015 Diabetes: Ophthalmology Exam 01/21/2023 Diabetes: Pedal Pulse Checked 01/21/2023 Diabetes: Sensory Foot Exam 01/21/2023 Diabetes: Visual Foot Exam 01/21/2023 Diabetes: Hemoglobin A1C 12/01/2024 024, 06/12/2024, 02/08/2023, Additional history exists Pneumococcal Vaccine: Pediat rics (0 to 5 Years) and At-Risk Patients (6 to 64 Years) Completed 12/03/2022, 07/29/2013, 02/17/2007 Influenza Vaccine Completed 08/31/2024, , 10/05/2022, Additional [place]
--- OUTSIDE RECORDS SUMMARY | 2024-11-18 17:16 | XMS_ITS | Encounter Summary ---
Author Organization [employer] Address [address] [facility] 7[address] [place] [address] Care Team Providers Care Pairer Inspector Name Role Phone [facility] Primary Care Provider [phone] Andree Ulloa PharmD Unavailable [phone] Maude Dennis RN Unavailable [phone] Encounter Details Date Type Department Care Team (Late st Contact Info) Description 11/18/2024 1:30 PM EST Office Visit [facility] MEDICINE [address] [place], [place] [phone] [facility] [address] [place] [address] Cirrhosis of liver with ascites, unspecified hepatic cirrhosis type (CMS/HCC) (CMS/HCC) (Primary Dx); Type 2 diabetes mellitus with chronic kidney disease, with long-term current use of insulin, unspecified CKD stage (CMS/HCC); Urinary incontinence, unspecified type Social History Tobacco Use Types Packs/Day Years [...] AM EDT documented as of this encounter Last Filed Vital Signs Vital Sign Reading Time Taken Comments Blood Pressure 114/65 11/18/2024 1:46 PM EST Pulse 96 11/18/2024 1:41 PM EST Temperature 36.4 ??C (97.6 ??F) 11/18/2024 1:41 PM ES T Respiratory Rate 16 11/18/2024 1:41 PM EST Oxygen Saturation - - Inhaled Oxygen Concentration - - Weight 74.7 kg (164 lb 9.6 oz) 11/18/2024 1:41 P M EST Height 157.5 cm (5' 2 ) 11/18/2024 1:41 PM EST Body Mass Index 30.11 11/18/2024 1:41 PM EST documented in this encounter Plan of Treatment Upcoming Encounters Date Type Department Care Team (Late st Contact Info) Description 12/14/2024 1:30 PM EST Office Visit [facility] OPTOMETRY [address] [place] [address] Ritesh, Virgen, OD [address] [place], [place] [phone] 12/18/2024 1:15 PM EST Office Visit [facility] MEDICINE [address] [place], [place] [phone] [place], Ana, CONCRETE JOURNEYMAN [address] [place], [place] [phone] Scheduled Orders Name Type Priority Associated Diagnoses Orde r Schedule Culture, Urine, Routine Microbiology Routine Urinary incontinence, unspecified type Ordered: 11/18/2024 Prothrombin Time-INR Lab Routine Cirrhosis of liver with ascites, unspecified hepatic cirrhosis type (CMS/HCC) (CMS/HCC) Expected: 11/18/2024, Expires: 11/18/2025 Urinalysis, Complete, with Reflex to Culture Lab Routine Urinary incontinence, unspecified type Expected: 11/18/2024 (Approximate), Expires: 11/18/2025 Albumin, Random Urine W/Creatinine Lab Routine Urinary incontinence, unspecified type Expected: 11/18/2024 (Approximate), Expires: 11/18/2025 documented as of this encounter Goals Goal [...] Ulloa PharmD documented as of this encounter Procedures Procedure Name Priority Date/Time Associated Diagnosis [...] current use of insulin, unspecified CKD stage ([facility]) documented in this encounter Results * (ABNORMAL) CBC auto differential (11/18/2024 3:21 PM EST) White Blood Count 4.0(L) 4.8 - 10.8 X10*3/uL [facility] Red Blood Count 3.02(L) 4.20 - 5.50 X10*6/uL [facility] Hemoglobin 8.4(L) 12.0 - 16.0 g/dl [facility] Hematocrit 25.1(L) 37.0 - 47.0 % [facility] Mean Corpuscular Volume 83.1 80.0 - 98.0 fL [facility] Mean Corpuscular Hemoglobin 27.8 27.0 - 33.0 pg [facility] Mean Corpuscular HGB Conc 33.5 31.0 - 35.0 g/dl [facility] Red Cell Distribution Width 15.1 11.0 - 16.0 % [facility] Platelet Count 44(L) 160 - 400 X10*3/uL [facility] Mean Platelet Volume 10.9 9.4 - 12.3 fL [facility] Neutrophils Percent Auto 76.0(H) 45 - 73 % [facility] Imm Gran Pct Auto 0.5(H) 0.0 - 0.4 % [facility] Lymphocytes Percent Auto 12.6(L) 20 - 40 % [facility] Monocytes Percent Auto 6.9 2 - 11 % [facility] Eosinophils Percent Auto 3.5 0 - 4 % [facility] Basophils Percent Auto 0.5 0 - 2 % [facility] NRBC Pct Auto 0.0 0.0 - 0.2 /100WBC [facility] Neutrophils Absolute Auto 3.1 2.0 - 8.3 x10*3/uL [facility] Imm Gran Abs Auto 0.02 0.00 - 0.03 X10*3/uL [facility] Lymphocytes Absolute Auto 0.5(L) 1.2 - 4.9 X10*3/uL [facility] Monocytes Absolute Auto 0.3 0.1 - 1.2 X10*3/uL [facility] Eosinophils Absolute Auto 0.1 0.0 - 0.4 X10*3/uL [facility] Basophils Absolute Auto 0.0 0.0 - 0.2 X10*3/uL [facility] NRBC Abs Auto 0.000 0.0 - 0.012 X10*3/uL [facility] Blood Venous blood specimen / Unknown 11/18/2024 3:21 PM EST 11/18/2024 4:34 PM EST [facility] LAB BLOOD ORDERABLES Final Re sult [facility] [address] [place] [phone] * (ABNORMAL) Comprehensive Metabolic Panel (11/18/2024 3:21 PM EST) Sodium 138 135 - 145 mmol/L [facility] Potassium 3.4 3.3 - 5.1 mmol/L [facility] Chloride 108 96 - 108 mmol/L [facility] Carbon Dioxide 22 22 - 29 mmol/L [facility] Anion Gap 11(L) 12 - 20 [facility] Urea Nitrogen (BUN) 20(H) 9 - 16 mg/dL [facility] Creatinine, Serum 0.94 0.5 - 1.4 mg/dL [facility] Estimated Glomerular Filt Rate >60 [facility] Comment:Chronic Kidney Disea se: Estimated GFR < 60 mL/min/1.28j6Oepoyy Kidney Disease: Estimated GFR < 15 mL/min/1.73m2 Glucose 293(H) 60 - 115 mg/dL [facility] Calcium 7.9(L) 8.4 - 10.2 mg/dL [facility] Bilirubin, Total 0.9 0.0 - 1.0 mg/dL [facility] Aspartate Amino Transferase 42(H) 5 - 31 U/L [facility] Alanine Aminotransferase 21 0 - 31 U/L [facility] Total Protein 7.1 6.5 - 8.0 g/dL [facility] Albumin Level 2.6(L) 3.5 - 5.0 g/dL [facility] Alkaline Phosphatase 103 39 - 117 U/L [facility] Blood Venous blood specimen / Unknown 11/18/2024 3:21 PM EST 11/18/2024 4:34 PM EST Result [facility] LAB BLOOD ORDERABLES Final Re sult [facility] [address] [place] [phone] * (ABNORMAL) POCT Glucose (11/18/2024 1:43 PM EST) [facility] Glucose Blood, POC 261(A) 60 - 200 mg/dL QC Media Lot # [id number] Lot# Expiration Date Blood Capillary blood specimen / Unknown 11/18/2024 1:43 PM EST Result [facility] POINT OF CARE TEST ENTER/EDIT ORDERABLES Final Result documented in this encounter Visit Diagnoses Diagnosis Cirrhosis of liver with ascites, unspecified hepatic cirrhosis type (CMS/HCC) (CMS/HCC)- Primary Type 2 diabetes mellitus with chronic kidney disease, with long-term current use of insulin, unspecified CKD stage ([facility]/HCC) Urinary incontinence, unspecified type documented in this encounter Additional Health Concerns Assessment Noted Time PHQ-9 Depression Total Score: 10 025 1:44 PM EST documented as of this encounter Care Teams Pairer Inspector Relationship Specialty Start Date End Date SusanAna levy [facility] [address] [place] [address] PCP - General Family Medicine 04/05/22 Andree Ulloa, ChelyD [address] [place] [address] Pharmacist Internal Medicine 05/09/23 Maude Dennis, MARQUITA [address] [place] [address] Communications Equipment SupervisorSupply Technician 08/27/24 Flavia Segundo Flash Welding Machine OperatorSupply Technician 10/10/23 [employer] 08/14/24 Gabrielle Fitch Flash Welding Machine OperatorSupply Technician 11/05/24 documented as of this encounter
--- OUTSIDE RECORDS SUMMARY | 2024-11-18 17:16 | XMS_ITS | Encounter Summary ---
Author Organization [email or web address] Address [address] [facility] 7t [place] [address] Care Team Providers Care Geographic Information System Analyst Name Role Phone [facility] Primary Care Provider [phone] Andree Ulloa PharmD Unavailable [phone] Maude Dennis RN Unavailable [phone] Reason for Visit * Reason Onset Date Comments requesting a call back 02/05/2023 Encounter Details Date Type Department Care Team ([facility] st Contact Info) Description 02/05/2023 Telephone [facility] MEDICINE [address] [place], [place] [phone] [facility] [address] [place] [address] requesting a call back Social History Tobacco Use Types Packs/Day Years [...] Orientation Straight 08/20/2022 10 :14 AM EDT COVID-19 Exposure Response Date Recorded In the last 10 days, have yo u been in contact with someone who was confirmed or suspected to have Coronavirus/COVID-19? No / Unsure 02/08/2023 10:51 AM EDT documented as of this encounter Miscellaneous Notes * Telephone Encounter - Vandana Naik - 02/05/2023 2:34 PM EDT Tc from pt daughter requesting to speak with pcp regarding FMLA paper work that was filled out incorrect . States needs to return them to [facility] . documented in this encounter Plan of Treatment Upcoming Encounters Date Type Department Care Team (Late st Contact Info) Description 12/14/2024 1:30 PM EST Office Visit [facility] OPTOMETRY [address] [place] [address] RiteshVirgen gama, OD [address] [place] [address] 12/18/2024 1:15 PM EST Office Visit [facility] MEDICINE [address] [place] [address] [facility] [address] [place] [address] documented as of this encounter Visit Diagnoses Not on filedocumented in this encounter Additional Health Concerns Assessment Noted Time PHQ-9 Depression Total Score: 0 12/03/19 10:53 AM EST documented as of this encounter Care Teams Geographic Information System Analyst Relationship Specialty Start Date End Date [facility] [address] [place] [address] PCP - General Family Medicine 04/05/22 Andree Ulloa PharmD [address] [place] [address] Pharmacist Internal Medicine 05/09/23 Maude Dennis, MARQUITA [address] [place] [phone] Nuclear Medicine SupervisorManager Of Selection And Assessment 08/27/24 Flavia Segundo Solar Sales RepresentativeManager Of Selection And Assessment 10/10/23 [employer] 08/14/24 Gabrielle Fitch Solar Sales RepresentativeManager Of Selection And Assessment 11/05/24 documented as of this encounter
--- OUTSIDE RECORDS SUMMARY | 2024-11-18 17:16 | XMS_ITS | Encounter Summary ---
Author Organization [employer] Address [address] [facility] 7t [place] [address] Care Team Providers Care Artificial Limb Maker Name Role Phone [facility] Primary Care Provider [phone] Andree Ulloa PharmD Unavailable [phone] Maude Dennis RN Unavailable [phone] Reason for Visit * Reason Onset Date Comments Med Refill 08/05/2024 Encounter Details Date Type Department Care Team (Late st Contact Info) Description 08/05/2024 Telephone [facility] MEDICINE [address] [place], [place] [phone] [facility] [address] [place], [place] [phone] Med Refill Social History Tobacco Use Types Packs/Day Years [...] before you got money to buy more: Often true 02/24/2024 Within the past 12 months,th e food you bought just didn't last and you didn't have enough money to get more: Often true 03/2024 Transportation Answer Date Recorded In the past [...] Recorded Patient Health Questionnaire-2 Score 4 05/06/2024 Comments Unknown Sex and Gender Information Value Date Recorded Sex Assigned at Female 08/20/2022 10:14 AM EDT Legal Sex Female 10:14 AM EDT Gender Identity Female 08/20/2022 10:14 AM EDT Sexual Orientation Straight 08/20/2022 10 :14 AM EDT documented as of this encounter Miscellaneous Notes * Telephone Encounter - Fernie Batista - 08/05/2024 2:51 PM EDT Tc from pt requesting a HDF appt. Hospital: [facility] Date of admission: 06/23/24 Discharge date: 08/13/24 Diagnosed: Multiple fractures of the ribs documented in this encounter Plan of Treatment Upcoming Encounters Date Type Department Care Team (Late st Contact Info) Description 12/14/2024 1:30 PM EST Office Visit [facility] OPTOMETRY [address] [place] [address] Virgen Awad, OD [address] [place] [address] 12/18/2024 1:15 PM EST Office Visit [facility] MEDICINE [address] [place] [address] Ana Davis FNP [address] [place] [address] documented as of this encounter Goals Goal [...] documented as of this encounter Care Teams Artificial Limb Maker Relationship Specialty Start Date End Date Ana Davis FNP [address] [place] [address] PCP - General Family Medicine 04/05/22 Andree Ulloa PharmD [address] [place] [address] Pharmacist Internal Medicine 05/09/23 Maude Dennis RN [address] [place] [phone] Head BuckerMedical Transcriber 08/27/24 Flavia Segundo Admissions RecruiterMedical Transcriber 10/10/23 [employer] 08/14/24 Gabrielle Fitch Admissions RecruiterMedical Transcriber 11/05/24 documented as of this encounter
--- OUTSIDE RECORDS SUMMARY | 2024-11-18 17:16 | XMS_ITS | Encounter Summary ---
Author Organization [employer] Address [address] [facility] 7t [place] [address] Care Team Providers Care Stone Operator Name Role Phone Ana Davis CUSTOMER EXPERIENCE ASSOCIATE Primary Care Provider [phone] Andree Ulloa PharmD Unavailable [phone] Maude Dennis RN Unavailable [phone] Reason for Visit * Reason Onset Date Comments Care Management 10/16/2024 C3CM- f/u call Encounter Details Date Type Department Care Team ([facility] Contact Info) Description 10/16/2024 Telephone [facility] MEDICINE [address] [place], [place] [phone] Maude Dennis, RN [address] [place], [place] [phone] Care Management (C3CM- f/u call) Social History Tobacco Use Types Packs/Day Years [...] encounter Miscellaneous Notes * Telephone Encounter - Carolina Haynes RN - 10/30/2024 4:41 PM EST TC placed to Myla [phone] who reports they confirmed with PT regarding wheelchair eval. RN was informed they cannot evaluate patient for wheelchair and the patient would need to have this assessment [facility] or [facility]. Sending to PCP as FYI. * Telephone Encounter - Carolina Haynes RN - 10/30/2024 9:14 AM EST TC placed to Myla [phone] as patient is established with them for VNA services to inquire if they can do a PT eval for a wheelchair in the home as patient cannot be referred to another VNA agency for PT wheelchair eval if already established with another VNA agency. [facility] Monitor was not sure if PT can evaluate patient for wheelchair in the home and reports she will askPT and return call to [facility] to confirm if they can or cannot. RN will await CB. * Telephone Encounter - Maude Dennis RN - 10/16/2024 10:16 AM EST CM Maude Dennis RN placed outbound call to patient. Call answered by patient's daughter Miriam. Patient's name, and address confirmed. Patient was recently discharged from [facility]. Per Miriam, patient has been doing well since d/c. She is aware of patient's scheduled HDF on 10/20 and she deniesany barriers to attending. CM informed Miriam about the requirement for patient to have PT eval inorder for the wheelchair Rx to be processed. She verbalizes understanding and is making the requestfor home PT. CM will send to PCP to inform. CM also informed Miriam that a call was placed to [facility] to f/u on the referral. CM advised that patient was scheduled and no showed visit so patient has been d/c from practice. Miriam states that the patient did miss the visit due to the weather and patient's fear of falling due to the snow. She states she did try to call the office to notify but was unable to reach anyone to r/s the visit. CM will send message to team to place new referral on patient's behalf. Miriam denies any immediate needs or concerns at this time. No further questions or concerns. CM reinforced direct contact information for any additional questions or concerns. Education provided on Walk-In Urgent Care located in [facility] [place] of [facility]. Patient provided with after-hours line for [facility], , which offer night time triage service and option to transfer to concrete swimming pool installer provider if needed. Patient verbalizes understanding, and able to r epeat back to property underwriter. A follow up call will be placed within 10 days, patient agrees with plan. documented in this encounter Plan of Treatment Upcoming Encounters Date Type Department Care Team (Late st Contact Info) Description 12/14/2024 1:30 PM EST Office Visit [facility] OPTOMETRY [address] [place] [address] [id number] Virgen Awad, OD 230 [place] [address] 12/18/2024 1:15 PM EST Office Visit [facility] MEDICINE [address] [place] [address] [place] [facility] 230 [place] [address] documented as of this encounter Goals Goal [...] documented as of this encounter Care Teams Stone Operator Relationship Specialty Start Date End Date [place] [facility] [address] [place] [address] PCP - General Family Medicine 04/05/22 Andree Ulloa, PharmD [address] [place] [address] Pharmacist Internal Medicine 05/09/23 Maude Dennis, MARQUITA [address] [place] [address] Belting And Webbing InspectorPhotographic Process Screen Maker 08/27/24 Flavia Segundo Circuits EngineerPhotographic Process Screen Maker 10/10/23 [employer] 08/14/24 documented as of this encounter
--- OUTSIDE RECORDS SUMMARY | 2024-11-18 17:16 | XMS_ITS | Encounter Summary ---
Author Organization [employer] Address [address] [facility] 7t [place] [address] Care Team Providers Care Drafter Marine Name Role Phone [facility] Primary Care Provider [phone] Andree Ulloa PharmD Unavailable [phone] Maude Dennis RN Unavailable [phone] Encounter Details Date Type Department Care Team ([facility] st Contact Info) Description 11/03/[address] [facility] MEDICINE 230 [place], [place] [phone] [facility] 230 [place] [address] Social History Tobacco Use Types Packs/Day Years Used Date Smoking Tobacco: Former Cigarettes Q uit: 1992 Passive Smoke Exposure: Never Smokeless Tobacco: Never [...] Description 12/14/2024 1:30 PM EST Office Visit [facility] OPTOMETRY [address] [place] [address] Ritesh, Virgen, OD [address] [place] [address] 12/18/2024 1:15 PM EST Office Visit [facility] MEDICINE [address] [place] [address] [place], Osmond, QUALITY ASSURANCE TECHNICIAN [address] [place] [address] documented as of this encounter Goals Goal [...] documented as of this encounter Care Teams Drafter Marine Relationship Specialty Start Date End Date Ana Davis QUALITY ASSURANCE TECHNICIAN [address] [place] [address] PCP - General Family Medicine 04/05/22 Andree Ulloa, PharmD [address] [place] [address] Pharmacist Internal Medicine 05/09/23 Maude Dennis RN [address] [place] [address] Distance Learning Program CoordinatorLastex Operator 08/27/24 Flavia Segundo Banking Services AdvisorLastex Operator 10/10/23 [employer] 08/14/24 documented as of this encounter
--- OUTSIDE RECORDS SUMMARY | 2024-11-18 17:16 | XMS_ITS | Encounter Summary ---
Author Organization [employer] Address [address] [facility] 7t [place] [address] Care Team Providers Care Bellman Driver Name Role Phone [facility] Primary Care Provider [phone] Andree Ulloa PharmD Unavailable [phone] Maude Dennis RN Unavailable [phone] Reason for Visit * Reason Comments Care Coordination ICP care plan Encounter Details Date Type Department Care Team (Late st Contact Info) Description 11/05/2024 Telephone [facility] MEDICINE [address] [place], [place] [phone] [facility], [facility] 230 [place] [address] Care Coordination (ICP care plan) Social History Tobacco Use Types Packs/Day Years [...] AM EDT documented as of this encounter Progress Notes * Yvette Naik - 11/05/2024 2:18 PM EST PCP Designee has received and reviewed Care Plan from [facility]: Pipe Fitter Supervisor Maintenance: Gabrielle Fitch Contact Information: [phone] Care Plan scanned into patient's EHR and notification sent to PCP. documented in this encounter Plan of Treatment Upcoming Encounters Date Type Department Care Team (Late st Contact Info) Description 12/14/2024 1:30 PM EST Office Visit [facility] OPTOMETRY [address] [place] [address] Ritesh, Virgen, OD 230 [place] [address] 12/18/2024 1:15 PM EST Office Visit [facility] MEDICINE [address] [place] [address] [place], Ana, WARP HAND [address] [place] [address] documented as of this encounter Goals Goal [...] documented as of this encounter Care Teams Bellman Driver Relationship Specialty Start Date End Date Ana Davis FNP 230 [place] [address] PCP - General Family Medicine 04/05/22 Andree Ulloa PharmD [address] [place] [address] Pharmacist Internal Medicine 05/09/23 Maude Dennis, MARQUITA 505 [place] [address] Enterprise Applications ManagerJewelry Polisher 08/27/24 Flavia Segundo Modeling Agency ManagerJewelry Polisher 10/10/23 [employer] 08/14/24 Gabrielle Fithc Modeling Agency ManagerJewelry Polisher 11/05/24 documented as of this encounter
--- OUTSIDE RECORDS SUMMARY | 2024-11-18 17:16 | XMS_ITS | Encounter Summary ---
Author Organization [employer] Address [address] [facility] 7t [place] [address] Care Team Providers Care Nursing Techn Name Role Phone Ana Davis FISH BONING MACHINE FEEDER Primary Care Provider [phone] Andree Ulloa PharmD Unavailable [phone] Maude Dennis RN Unavailable [phone] Reason for Visit * Reason Onset Date Comments Care Management 11/13/2024 C3CM- f/u call Encounter Details Date Type Department Care Team ([facility] st Contact Info) Description 11/13/2024 Telephone [facility] MEDICINE 230 [place], [place] [phone] Maude Dennis, RN [address] [place], [place] [phone] Care Management (C3CM- f/u call) Social History [...] Telephone Encounter - Maude Dennis RN - 11/13/2024 3:28 PM EST CM Maude Dennis RN placed outbound call to patient. Call answered by patient' daughter Miriam. Patient's name, and address confirmed. Miriam is making a request for Rx haloperidol. She statesshe has noted that patient is saying things that do not make sense and is not speaking coherently. Per Miriam, PCP has prescribed Rx in the past to help manage symptoms. She states she was advisedthat she can contact the office and make a request for Rx as needed. She also states that the patient was approved for PAINTER SPRING hours through the [facility] (41 hrs/ week). She states she does not feel that 41 hours a week is sufficient and would also like to discuss this with PCP. Per Miriam, patient not currently receiving PT or OT. She states she is being seen by [facility] for nursing and med management. CM noted recently scanned in document from [facility] which states that patient refused PT visit 09/28/24. Patient also evaluated/ assessed by OT. Per daughter, it is possible that patient refused PT. She states the patient does refuse to participate at times and again is requesting that PCP prescribe the haloperidol to help manage patient's symptoms. She is agreeable to f/u appt on 11/18/24 at 1:30pm to address her concerns. She is also aware of the scheduled Telehealth appt with on 11/17/24 at 3:00pm. No further questions or concerns. CM reinforced direct contact information for any additional questions or concerns. Education provided on Walk-In Urgent Care located in [facility] of [facility]. Miriam provided with after-hours line for [facility], , which offer night time triage service and option to transfer to front end technician provider if needed. She verbalizes understanding, and able to repeat back to movie writer. A follow up call will be placed within 10 days, she agrees with plan. documented in this encounter Plan of Treatment Upcoming Encounters Date Type Department Care Team (Late st Contact Info) Description 12/14/2024 1:30 PM EST Office Visit [facility] OPTOMETRY [address] [place], [place] [phone] Ritesh, Virgen, OD 230 [place] [address] 12/18/2024 1:15 PM EST Office Visit [facility] MEDICINE [address] [place] [address] [place], Ana, FISH BONING MACHINE FEEDER [address] [place] [address] documented as of this encounter Goals Goal [...] documented as of this encounter Care Teams Nursing Techn Relationship Specialty Start Date End Date Ana Davis FISH BONING MACHINE FEEDER [address] [place] [address] PCP - General Family Medicine 04/05/22 Andree Ulloa, PharmD [address] [place] [address] Pharmacist Internal Medicine 05/09/23 Maude Dennis RN [address] [place] [address] Director PartTechnician Semiconductor Development 08/27/24 Flavia Segundo Patrol DriverTechnician Semiconductor Development 10/10/23 [employer] 08/14/24 Gabrielle Fitch Patrol DriverTechnician Semiconductor Development 11/05/24 documented as of this encounter
--- OUTSIDE RECORDS SUMMARY | 2024-11-18 17:16 | XMS_ITS | Encounter Summary ---
Author Organization [employer] Address [address] [facility] 7t [place] [address] Care Team Providers Care Securities Adviser Name Role Phone [facility] Primary Care Provider [phone] Andree Ulloa PharmD Unavailable [phone] Maude Dennis RN Unavailable [phone] Reason for Visit * Reason Comments Med Refill Encounter Details Date Type Department Care Team (Late st Contact Info) Description 10/01/2023 Refill [facility] [address] [place] [address] [facility], [facility] [address] [place] [address] Tardive dyskinesia; Schizophrenia, unspecified type (CMS/HCC) Social History Tobacco [...] Description 12/14/2024 1:30 PM EST Office Visit [facility] OPTOMETRY [address] [place] [address] Ritesh, Virgen, OD 230 [place] [address] 12/18/2024 1:15 PM EST Office Visit [facility] MEDICINE [address] [place] [address] [place], Bonifay, TIME BUYER 230 [place] [address] documented as of this encounter Goals Goal [...] Tardive dyskinesia Subacute dyskinesia due to drugs Schizophrenia, unspecified type (CMS/HCC) documented in this encounter Additional Health Concerns Assessment Noted Time PHQ-9 Depression Total Score: 0 09/02/20 23 12:14 PM EST documented as of this encounter Care Teams Securities Adviser Relationship Specialty Start Date End Date Ana Davis FNP [address] [place] [address] PCP - General Family Medicine 04/05/22 Andree Ulloa, PharmD [address] [place] [address] Pharmacist Internal Medicine 05/09/23 Maude Dennis RN [address] [place] [address] Burglar Alarm MechanicGift Packer 08/27/24 Flavia Segundo Hot Mix OperatorGift Packer 10/10/23 [employer] 08/14/24 Gabrielle Fitch Hot Mix OperatorGift Packer 11/05/24 documented as of this encounter
--- OUTSIDE RECORDS SUMMARY | 2024-11-18 17:16 | XMS_ITS | Encounter Summary ---
Author Organization [employer] Address [address] [facility] 7t [place] [address] Care Team Providers Care Finance Lead Name Role Phone Ana Davis MARKETING STRATEGY MANAGER Primary Care Provider [phone] Andree Ulloa PharmD Unavailable [phone] Maude Dennis RN Unavailable [phone] Encounter Details Date Type Department Care Team (Latest Contact Info) Description 11/18/2024 Travel Social History Tobacco Use Types Packs/Day Years [...] Office Visit [facility] OPTOMETRY [address] [place] [address] Ritesh, Virgen, OD [address] [place] [address] 12/18/2024 1:15 PM EST Office Visit [facility] MEDICINE 230 [place] [address] Susan, Ana, MARKETING STRATEGY MANAGER 230 [place] [address] documented as of this encounter Goals Goal Patient Goal Type Associated Problems Recent Progress Patient-Stated? Author Check your blood sugar as directed General On track( 023 4:12 PM EDT) No Jacob Llaons PharmD Note: Use CGM, ensuring sensor is scanned at least once every 8 hours to capture 24H data. Check BG manually, as directed. Take your medications every day Lifestyle Worsening( 4:12 PM EDT) No Jacob Llanos PharmD Hemoglobin A1c < 8 Result Component 7.6( 11:08 AM EST) No Andree Ulloa PharmD documented as of this encounter Visit Diagnoses Not on filedocumented in this encounter Additional Health Concerns Assessment Noted Time PHQ-9 Depression Total Score: 10 025 1:44 PM EST documented as of this encounter Care Teams Finance Lead Relationship Specialty Start Date End Date Ana Davis, MARKETING STRATEGY MANAGER 230 [place] [address] PCP - General Family Medicine 04/05/22 Andree Ulloa PharmD 230 [place], [place] [phone] Pharmacist Internal Medicine 05/09/23 Maude Dennis, MARQUITA 505 [place] [address] Parking Lot LaborerSubstation Wireman 08/27/24 Flavia Segundo Sanitation Worker Cleaning MachinerySubstation Wireman 10/10/23 [employer] 08/14/24 Gabrielle Fitch Sanitation Worker Cleaning MachinerySubstation Wireman 11/05/24 documented as of this encounter
--- OUTSIDE RECORDS SUMMARY | 2024-11-18 17:16 | XMS_ITS | Encounter Summary ---
Author Organization [employer] Address [address] [facility] 7t [place] [address] Care Team Providers Care Fac Engineer Name Role Phone Ana Davis DIVISION HUMAN RESOURCES MANAGER Primary Care Provider [phone] Andree Ulloa PharmD Unavailable [phone] Maude Dennis RN Unavailable [phone] Reason for Visit * Reason Onset Date Comments Care Management 11/04/2024 C3CM- f/u call Encounter Details Date Type Department Care Team ([facility] st Contact Info) Description 11/04/2024 Telephone [facility] MEDICINE 230 [place], [place] [phone] Maude Dennis, RN 505 [place], [place] [phone] Care Management (C3CM- f/u call) Social History [...] Telephone Encounter - Maude Dennis RN - 11/04/2024 2:24 PM EST Maude Dennis RN placed outbound call to patient. Call answered by patient's daughter Miriam. Patient's name, and address confirmed. Miriam states is doing well with no recent illnesses or emergency room visits. YOUNG updated Miriam on the referral to [facility] for PT. Advised she shouldbe contacted with an appt once scheduled. Advised that if she does not hear from the office within a week, that she please call the office to f/u. Patient to f/u with if in need of further assistance. She agrees. YOUNG advised that several calls were placed to her to schedule an appt with but staff unable to reach. Miriam states she has had some issues with her phone where she will miss callsand not receive voicemails. She is requesting that a message be sent to the team to contact her. Christy send message to . YOUNG also provided her with phone number [phone] and advised that she please call the office to f/u on this. She agrees. Per Miriam, patient's blood pressures and sugars have been well controlled overall. She states the patient may have some elevated readings from time to time but denies having any concerns. Per Miriam, patient receiving daily visits from the visiting nurse who assesses the patient's vitals as well. She states the patient was seen by her nurse today and no concerns noted. She denies having any questions or immediate needs at this time. No further questions or concerns. CM reinforced direct contact information for any additional questions or concerns. Education provided on Walk-In Urgent Care located in [facility] of [facility]. Patient provided with after-hours line for [facility], , which offer night time triage service and option to transfer to iron worker foreman provider if needed. Patient verbalizes understanding, and able to r epeat back to food writer. A follow up call will be placed within 10 days, patient agrees with plan. documented in this encounter Plan of Treatment Upcoming Encounters Date Type Department Care Team (Late st Contact Info) Description 12/14/2024 1:30 PM EST Office Visit [facility] OPTOMETRY [address] [place] [address] Ritesh, Virgen, OD 230 [place] [address] 12/18/2024 1:15 PM EST Office Visit [facility] MEDICINE 230 [place] [address] [place], Ana, DIVISION HUMAN RESOURCES MANAGER [address] [place] [address] documented as of this encounter Goals Goal [...] day Lifestyle Worsening( 4:12 PM EDT) No Romi, Jacob, PharmD Hemoglobin A1c < 8 Result Component 7.6( 4 11:08 AM EST) No Andree Ulloa PharmD documented as of this encounter Visit Diagnoses Not on filedocumented in this encounter Additional Health Concerns Assessment Noted Time PHQ-9 Depression Total Score: 11 024 10:29 AM EDT documented as of this encounter Care Teams Fac Engineer Relationship Specialty Start Date End Date Ana Davis FNP [address] [place] [address] PCP - General Family Medicine 04/05/22 Andree Ulloa, Cesia [address] [place] [address] Pharmacist Internal Medicine 05/09/23 Maude Dennis RN [address] [place] [address] Sales And Service AgentTransition Mgr 08/27/24 Flavia Segundo Primary Care PediatricianTransition Mgr 10/10/23 [facility] 08/14/24 documented as of this encounter
[2024-11-18 17:37] LABS: INTERNATIONAL NORM RATIO 1.3 (0.9-1.1); Prothrombin Time 14.9 SEC (10.9-12.4)
== END 2024-11-18 15:20 | disposition home or self-care (01) ==
LOC: HO.HHCL 15:19
PROVIDERS: Visit Provider Registered Nurse
DX: K74.60 Unspecified cirrhosis of liver (principal); R18.8 Other ascites
CPT/HCPCS: 36415; 80053; 85025; 85610

== ENCOUNTER 2024-11-27 14:48 | Outpatient (AMB) | payer MEDICAID, SELFPAY ==
--- NOTE | 2024-11-27 14:51 | MHC.OFFVIS ---
Vital Signs 11/27/24 14:52 Height 5 ft 2 in Weight 173 lb BMI 31.6 BP 152/65 H Blood Pressure Location Lt brachial Position Sitting Pulse 94 Intake Visit Reasons: Follow up before Short Stay per Dr. Roldan Intake Note: Mary Beth presents in the office as a follow up to discuss procedure. CC: Bleeding hemorrhoids, bleeding bad where she went to the ED and she is having diarrhea. She states that she she is having pains in the stomach alot and pains all over her body and in her neck! She is also having head pains and she thinks it is due to her diabetes and cirrhosis. Tax Manager Required: No Allergies Penicillins Allergy (Unknown, Verified 11/27/24 15:08) HIVES Medication List - Last Reconciled 11/27/24 by Bobbi Roldan MD benztropine 0.5 mg PO BID blood pressure monitor (Blood Pressure Kit) As directed blood-glucose meter (FreeStyle [place] Lite kit) As directed flash glucose sensor (FreeStyle Gurpreet 2 Sensor kit) As directed furosemide 80 mg (2 x 40 mg) PO DAILY 90 days haloperidol 5 mg PO BEDTIME insulin degludec (Tresiba FlexTouch U-200 insulin) 56 units subcut QPM insulin lispro (Humalog KwikPen (U-100) Insulin) See Protocol units subcut TID lactulose 20 grams (30 mL) PO TID 90 days spironolactone 200 mg (2 x 100 mg) PO DAILY 90 days HPI Comments Details: 62 y.o F with hx 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 Previously seen by Bere aPnchal. Celso welsh, was initially diagnosed with cirrhosis 3-4 years ago incidentally on ultrasound findings which was done for abdominal discomfort. Thought to be likely secondary to QURESHI / NAFLD. no significant history of alcohol use disorder. Hep serologies negative, however Hep B core antibody not available. Early 2021, patient developed ascites. Since then, she has had paracentesis multiple times. She also had a recent admission to [facility] last month for hepatic encephalopathy, and has also been started on lactulose since then. She also had a thoracentesis from the right side in the same admission. Per records 5.2L removed by para and 1500ml removed from thora. Fluid studies N/A. Relevant medications: Propranolol 10 mg t.i.d. Furosemide 40 mg once daily Spironolactone 100 mg once daily Lactulose 30 mL t.i.d. Recent endoscopy: March 2019 EGD LA grade A esophagitis, grade II varices Colonoscopy: Fair prep. 4 polyps including 10 mm sigmoid colon polyp. Path: T.A in sigmoid colon. Recent imaging: Patient reports having an ultrasound done for a paracentesis, but does not recall when her last dedicated liver imaging was. 10/29/22: Main complain is frequent diarrhea, at least 5-6 bowel movements every day since she has started lactulose. Patient also has recurrence of ascites, and also notes that her breathing is slowly getting worse, specially when she walks for long distance. 11/27/22: Presents to the office by herself. Reports abd distention and discomfort. Unable to tell me which meds she is taking at home. Does report increasing forgetfulness and and in fact forgets to take her lactulose too quite often. She also did not know that was supposed to get labs done before this appt to adjust meds. Similarly, she is not able to tell me if she has an appt for US abd. We also tried to contact her daughter over the phone but were not able to get in touch. Left a VM in Pakistani and Japanese with the help of the flat finisher. 03/20/23: Missed virtual follow up with her daughter on 01/01 due to scheduling constraints. Also had to cancel her EGD/colo appt due to daughter's work schedule. Daughter now has FMLA and is able to keep up with appointments. Main complaint today is persistent abd pain and discomfort as well as frequent fluid accumulation. Most recently has also needed a thoracentesis. This was done at [facility], records not available. Pt's daughter estimates has been going at least q2w for the last couple of months. She also tells me that Catherine has also needed albumin on a few occasions due to the amount of fluid removed. Salt restriction is minimal, pt often eats food with added salt and has access to salt shaker as well. Labs ordered from last visit including updated kidney function still pending. Current liver related meds: (Pill box not available but from daughter's recall) ??Losartan 25 mg Spironolactone 25 bid (was Rxed 100mg once daily by me, unsure of when and why the dose was changed) Furosemide 40 mg BID (was Rxed 40mg once daily by me, unsure of when and why the dose was changed)) Propranolol 30 TID (was Rxed 30mg BID by me, but appears the dosing was not updated on their end) Pt not taking lactulose syp. EGD colo pending as above. Overdue on HCC screening. US was previously ordered in Oct but not booked, sent out another request today. 05/01/23: Daughter requested this visit as pt was noted to accumulate more fluid in the lungs based on her most recent visit to [facility] for paracentesis. Pt reports somewhat pronounced shortness of breath on activity but no orthopnea. Does not think her activity levels are all that affected despite this. No abd pain, chest pain, cough, fever. Current meds: furosemide 40 spironolactone 100 (increased from 50 two weeks ago) propranolol 30 bid lactulose titrated to 2-3 BMs 05/21/23: Pt's daughter requested to follow up after EGD/colo was canceled by pre-op anesthesia a day before her procedures were scheduled. Were told that due to pleural effusion, was high risk for periprocedural anesthesia complications. Procedure postponed to Jun. Has been seen by pulm - diuretics as per our office. US liver results were already reviewed with the daughter. Salt indiscretion still + acmila at dinner time. Daughter working on getting meals on wheels for dinner time as well (already set up for lunch) Current meds: furosemide 60 spironolactone 150 propranolol 30 bid lactulose titrated to 2-3 BMs 06/17/24: Pt was lost to follow up. Daughter reports they were frustrated that [facility] was not being put on the transplant list and therefore did not want to follow up there. However is planning to go to [facility] for next appt in Jul. In the meantime, Catherine has had multiple admissions to [facility]. Most recently was admitted last week for encephalopathy possibly UTI. Before that in March had SBP. Daughter has concerns re Catherine's overall cognitive decline. Is frequently disoriented and confused, forgetful. She is unsure if this is due to spectrum of HE vs worsening dementia. Pt has not had neurological or geriatric assessment for cognitive impairment. Current meds: Furosimide 40mg BID Propranolol 30mg BID Spironolactone 100mg DAILY Lactulose 30 TID Bactrim once daily for SBP prophylaxis. Is overdue on HCC screening and endoscopy. 11/27/24: Here for follow up. Was shae for EGD/colo earlier this year but sustained L shoulder fracture after a mechanical fall so this was postponed. Pt had L shoulder fracture - being managed non-operatively. Pt reports improvement in pain and ROM .Able to lay on her left side without much difficulty. Daughter also reports that for the past 2 months they now have [facility] for med administration. However, they only visit once a day so most of the meds are being given only one time such as lactulose. Propranolol and Bactrim discontinued for unknown reason. Her last para was in Sep. 6L removed. On exam, has significant ascites. US liver due. Current meds as reported by daughter: Furosemide 80 Spironolactone 150 Lactulose 30 once daily Daughter also concerns re behaviour changes including memory lapses, incoherent speech, unusual actions such as spraying bleach on the wall etc. Was referred to [facility] neuro but didnt follow through. Will reroute referral to [facility] neuro psych eval. Lastly, pt noted to be tachypneic with runny nose and cough during visit today. Ongiong x 2 days per daughter. No fevers documented. 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 Cirrhosis of liver with ascites Parkinson disease Hypertension Diabetes Surgical History Hx of esophagogastroduodenoscopy Hx of colonoscopy Family History Father Colon cancer Mother Diabetes Colon polyps Daughter Lupus Social History Household Members: Children Housing: House Housing Other:: [employer] Are you a primary daycare assistant to a significant other at home: No Do you presently have visiting nurse or other home services: No Alcohol intake: former Patient Tobacco Use Status: Former Tobacco user service: No Current occupational status: unemployed and disabled Review of Systems Const All systems reviewed & are unremarkable except as noted in HPI and below Physical Exam Vital Signs: Last Vital Signs Pulse 94 11/27/24 14:52 BP 152/65 H 11/27/24 14:52 BMI result Body Mass Index 31.6 NAD appears older than stated age Abd soft, distended, nontender GENI edema +2 A/Ox3, no asterixis Assessment & Plan Assessment & Plan (1) Cirrhosis of liver with ascites: Code(s): K74.60 - Unspecified cirrhosis of liver; R18.8 - Other ascites Category: Medical (2) Cognitive and behavioral changes: Code(s): R41.89 - Other symptoms and signs involving cognitive functions and awareness; R46.89 - Other symptoms and signs involving appearance and behavior Category: Medical (3) Chronic anemia: Code(s): D64.9 - Anemia, unspecified Category: Medical (4) Upper respiratory infection: Code(s): J06.9 - Acute upper respiratory infection, unspecified Category: Medical (5) Closed fracture of left proximal humerus: Code(s): S42.A - Unspecified fracture of upper end of left humerus, initial encounter for closed fracture Category: Medical Plan 1. Decomp cirrhosis MELD-Na 11 Hx of SBP Will review current meds with PCP. Seems to be some incongruency in meds. Will also clarify why propranolol discontinued. Has ascites on exam, will increase diuretics. Lastly, overdue for HCC screening. Plan: - Keep lasix 80 mg and increase zachariah to 200 mg - Pt to cont lactulose. Add rifaximin 550 BID for HE - EGD for variceal surveillance. WIll clarify BB with PCP - US abd for HCC screening - Has hx of SBP and should be on Bactrim. Per daughter, this is not being given by [facility] - will discuss with PCP - Pt was prev referred to [facility] hep for trnasplant eval but due to multiple no shows this is on hold for now 2. URI sx Noted on exam today. Plan: - VIral panel ordered 3. Behavorial and cognitive changes Reported by patient's daughter - ongoing x more than 6 months. PRev referred to [facility] neuro. Plan: - Referred to [facility] neuropsych eval - Rifaximin added as above to exclude possible component of HE 4. Anemia Long overdue EGD/colo as previously reviewed. This will be booked Daughter already has the prep. 5. L shoulder fracture Pt with better pain control and able to lay on LEFT side UPDATE: phone call with PCP Ana Stockholm. Clarified: 1. Pt IS on BB - changed to coreg. So far tolerated from BP and HR standpoint. 2. Pt also on Bactrim. [facility] is aware of this as well, and should be administering this 3. Diuretics are as follows: lasix 40, zachariah 100. So INCREASED to lasix 60 and zachariah 150. Orders: Orders US abdomen complete 11/27/24 K74.60 - Unspecified cirrhosis of liver, R18.8 - Other ascites SARS-CoV2/FLU/RSV 11/27/24 J06.9 - Acute upper respiratory infection, unspecified Referrals Neuropsychiatry Referral R41.89 - Other symptoms and signs involving cognitive functions and awareness, R46.89 - Other symptoms and signs involving appearance and behavior Medications: New rifaximin 550 mg PO BID 90 days 180 tabs 0RF Changed From furosemide 40 mg PO BID 60 tabs 0RF To furosemide 80 mg (2 x 40 mg) PO DAILY 90 days 180 tabs 0RF From spironolactone 200 mg (2 x 100 mg) PO DAILY 90 days 180 tabs 0RF To spironolactone 150 mg (1.5 x 100 mg) PO DAILY 90 days 135 tabs 0RF From spironolactone 150 mg (1.5 x 100 mg) PO DAILY 42 tabs 0RF To spironolactone 200 mg (2 x 100 mg) PO DAILY 90 days 180 tabs 0RF From furosemide 80 mg (2 x 40 mg) PO DAILY 90 days 180 tabs 0RF To furosemide 60 mg (1.5 x 40 mg) PO DAILY 90 days 135 tabs 0RF Refilled lactulose 20 grams (30 mL) PO TID 90 days 8,100 mL 0RF Coding Level of Care Code Est Pt Level 5 (15932) Complex EM visit Add On G2211 Diagnoses Cirrhosis of liver with ascites K74.60; R18.8 Cognitive and behavioral changes R41.89; R46.89 Chronic anemia D64.9 Upper respiratory infection J06.9 Closed fracture of left proximal humerus S42A
[2024-11-27 14:52] VITALS: BP 152/65; PULSE 94; BMI 31.6
== END 2024-11-27 16:03 | disposition home or self-care (01) ==
PROVIDERS: PCP Registered Nurse; Visit Provider Internal Medicine
DX: K74.60 Unspecified cirrhosis of liver (principal); R18.8 Other ascites; D64.9 Anemia, unspecified; R41.89 Other symptoms and signs involving cognitive functions and awareness; R46.89 Other symptoms and signs involving appearance and behavior; J06.9 Acute upper respiratory infection, unspecified; S42.202A Unspecified fracture of upper end of left humerus, initial encounter for closed fracture
CPT/HCPCS: 99214

== ENCOUNTER → 2024-11-27 14:48 | Outpatient (BNVA) | payer MEDICAID, SELFPAY | PROVIDERS: PCP Registered Nurse; Visit Provider Internal Medicine | DX: K74.60 Unspecified cirrhosis of liver (principal); R18.8 Other ascites; R41.89 Other symptoms and signs involving cognitive functions and awareness; R46.89 Other symptoms and signs involving appearance and behavior; D64.9 Anemia, unspecified; J06.9 Acute upper respiratory infection, unspecified | CPT/HCPCS: 99212 ==

== ENCOUNTER 2025-02-12 14:56 | Outpatient (REF) | payer MEDICAID, SELFPAY ==
--- OUTSIDE RECORDS SUMMARY | 2025-02-12 15:37 | XMS_ITS | Encounter Summary ---
Author Organization [employer] Address [address] [facility] [address] [place] [address] Care Team Providers Care Tying Machine Operator Lumber Name Role Phone [facility] Primary Care Provider [phone] Andree Ulloa PharmD Unavailable [phone] Maude Dennis RN Unavailable [phone] Reason for Visit * Reason Comments Med Refill Encounter Details Date Type Department Care Team (Late st Contact Info) Description 10/03/2023 Refill [facility] MED & PEDS [address] [place] [address] [facility], [facility] [address] [place] [address] Tardive dyskinesia Social History Tobacco Use Types [...] Care Team (Late st Contact Info) Description 02/15/2025 11:15 AM EDT Office Visit [facility] OPTOMETRY [address] [place] [address] Tarka, Elisabeth, OD [address] [place] [address] 03/19/2025 1:30 PM EDT Office Visit [facility] MEDICINE [address] [place] [address] Sibley, Ana, [facility] [address] [place] [address] documented as of this encounter Goals Goal [...] PharmD Hemoglobin A1c < 8 Result Component 10.4(02/13/20 25 2:34 PM EDT) No Andree Ulloa, PharmD documented as of this encounter Visit Diagnoses Diagnosis Tardive dyskinesia Subacute dyskinesia due to drugs documented in this encounter Additional Health Concerns Assessment Noted Time PHQ-9 Depression Total Score: 0 09/02/20 12:14 PM EST documented as of this encounter Care Teams Tying Machine Operator Lumber Relationship Specialty Start Date End Date Ana Davis [employer] TEAM LEADER [address] [place] [address] PCP - General Family Medicine 04/05/22 Andree Ulloa, PharmD [address] [place] [address] Pharmacist Internal Medicine 05/09/23 Maude Dennis RN [address] [place] [address] Manager Product ManagementHerpetology Teacher 08/27/24 12/22/24 Flavia Segundo Roofing Machine OperatorHerpetology Teacher 10/10/23 [employer] 08/14/24 02/11/25 Gabrielle Fitch Roofing Machine OperatorHerpetology Teacher 11/05/24 documented as of this encounter
--- OUTSIDE RECORDS SUMMARY | 2025-02-12 15:37 | XMS_ITS | Encounter Summary ---
Author Organization [employer] Address [address] [facility] [address] [place] [address] Care Team Providers Care Integration Aide Name Role Phone [facility] Primary Care Provider [phone] Andree Ulloa PharmD Unavailable [phone] Maude Dennis RN Unavailable [phone] Reason for Visit * Reason Comments Med Refill Encounter Details Date Type Department Care Team (Late st Contact Info) Description 10/01/2023 Refill [facility] MED & PEDS [address] [place] [address] [facility], [facility] [address] [place] [address] Tardive dyskinesia; Schizophrenia, unspecified type (CMS/HCC) Social [...] Description 02/15/2025 11:15 AM EDT Office Visit [facility] OPTOMETRY [address] [place] [address] Tarka, Elisabeth, OD [address] [place] [address] 03/19/2025 1:30 PM EDT Office Visit [facility] MEDICINE [address] [place] [address] [facility], [facility] [address] [place] [address] documented as of this encounter Goals Goal [...] PharmD Hemoglobin A1c < 8 Result Component 10.4(04/25/20 25 2:34 PM EDT) No Andree Ulloa, PharmD documented as of this encounter Visit Diagnoses Diagnosis Tardive dyskinesia Subacute dyskinesia due to drugs Schizophrenia, unspecified type (CMS/HCC) documented in this encounter Additional Health Concerns Assessment Noted Time PHQ-9 Depression Total Score: 0 09/02/20 12:14 PM EST documented as of this encounter Care Teams Integration Aide Relationship Specialty Start Date End Date Ana Davis FNP [address] [place] [address] PCP - General Family Medicine 04/05/22 Andree Ulloa, PharmD [address] [place] [address] Pharmacist Internal Medicine 05/09/23 Maude Dennis RN [address] [place] [id number] [employer] 08/27/24 12/22/24 Flavia Segundo Credit [employer] Collections RepresentativeLight Industrial 10/10/23 [employer] 08/14/24 02/11/25 Gabrielle Fitch [employer] Collections RepresentativeLight [employer] 11/05/24 documented as of this encounter
--- OUTSIDE RECORDS SUMMARY | 2025-02-12 15:37 | XMS_ITS | Clinical Summary ---
Author Organization [employer] Address [address] [facility] [address] [place] [address] Care Team Providers Care Automotive Airconditioning Mechanic Name Role Phone Ana Davis SHELL WORKER Primary Care Provider [phone] Andree Ulloa PharmD Unavailable [phone] Allergies Active Allergy Reactions Criticality Noted Date Comments Penicillin G 01/30/2023 Penicillins Unknown 12/05/2010 Medications * This document contains information received from the source organization and may not represent a complete record from that organization. acetaminophen (Tylenol) 500 MG tablet Take 1 tablet by mouth every 6 (six) hours if needed. 016 Active Insulin Pen Needle (pen needle 01/03 ) 31G x 5 mm misc Inject under the skin if needed. Use as directed twice daily Active Blood Pressure Monitor kitIndications :Hypertension, unspecified type Use to check blood pressure daily 1 kit 023 Active glucagon (Baqsimi Two Pack) 3 MG/DOSE nasal powderIndicati ons:Type 2 diabetes mellitus without complication, with long-term current use of insulin ([facility]) Administer 3 mg via 1 device into the nostril for hypoglycemia with loss of consciousness. If no response after 15 minutes administer an additional dose via 2nd device into other nostril. 2 each 1 023 Active Alcohol Swabs (Alcohol Prep) padsIndication s:Type 2 diabetes mellitus without complication, with long-term current use of insulin (CMS/HCC) Use one pad each to prep skin prior to injection as directed 100 each 11 024 Active Lancets 33G miscIndication s:Type 2 diabetes mellitus without complication, with long-term current use of insulin (CMS/[facility]) Use as directed to check blood sugar four times daily 100 each 3 024 Active Blood Glucose Monitoring Suppl (D-Care Glucometer) w/Device kitIndications :Type 2 diabetes mellitus with hyperglycemia, with long-term current use of insulin (CMS/HCC),Cirr hosis of liver with ascites, unspecified hepatic cirrhosis type (CMS/HCC) (CMS/HCC) Use as directed to check BS four times daily 1 kit 024 Active traMADol (Ultram) 50 MG tabletIndicati ons:Closed fracture of multiple ribs, unspecified laterality, initial encounter Take 1 tablet (50 mg) by mouth every 8 (eight) hours if needed for severe pain. 30 tablet Active ferrous gluconate (Fergon) 324 (38 Fe) MG tabletIndicati ons:Anemia, unspecified type Take 1 tablet (324 mg) by mouth with breakfast. 30 tablet 11 024 2024 Active insulin degludec (Tresiba FlexTouch) 200 UNIT/ML injectionIndic ations:Type 2 diabetes mellitus without complication, with long-term current use of insulin (CMS/HCC) INJECT 54 UNITS SUBCUTANEOUSLY EVERY EVENING 9 mL 1 024 Active carvedilol (Coreg) 3.125 MG tabletIndicati ons:Cirrhosis of liver with ascites, unspecified hepatic cirrhosis type (CMS/HCC) (CMS/HCC) Take 1 tablet (3.125 mg) by mouth 2 times daily. 60 tablet 025 2025 Active furosemide (Lasix) 40 MG tabletIndicati ons:Cirrhosis of liver with ascites, unspecified hepatic cirrhosis type (CMS/HCC) (CMS/HCC) Take 1 tablet (40 mg) by mouth Once per day. 30 tablet 025 Active lactulose (Chronulac) 10 GM/15ML solutionIndica tions:Cirrhosi s of liver with ascites, unspecified hepatic cirrhosis type (CMS/HCC) (CMS/HCC) Take 30 mL (20 g) by mouth 3 times daily. 946 mL 3 025 Active sulfamethoxazo le-trimethopri m (Bactrim DS) 800-160 MG tabletIndicati ons:Cirrhosis of liver with ascites, unspecified hepatic cirrhosis type (CMS/HCC) (CMS/HCC) Take 1 tablet by mouth Once per day. 30 tablet 11 025 Active haloperidol (Haldol) 10 MG tablet Take 1 tablet by mouth 2 times daily. Active rifAXIMin (Xifaxan) 550 MG tablet Take 550 mg by mouth 2 times daily. Active spironolactone (Aldactone) 50 MG tablet Take 50 mg by mouth Once per day. Active lamoTRIgine (LaMICtal) 25 MG tablet Take 2 tablets by mouth at bedtime. Active lurasidone (Latuda) 80 MG tablet Take 80 mg by mouth in the evening. Active benztropine (Cogentin) 0.5 MG tablet Take 1 tablet by mouth at bedtime. Active spironolactone (Aldactone) 100 MG tabletIndicati ons:Cirrhosis of liver with ascites, unspecified hepatic cirrhosis type (CMS/HCC) (CMS/HCC) Take 1 tablet (100 mg) by mouth Once per day. 30 tablet 11 025 2024 Discontinued(M ed list cleanup (will not trigger notification to Pharmacy)) haloperidol (Haldol) 5 MG tabletIndicati ons:Schizophre louise, unspecified type (CMS/HCC) Take 1 tablet (5 mg) by mouth at bedtime. 30 tablet 025 2024 Discontinued(M ed list cleanup (will not trigger notification to Pharmacy)) benztropine (Cogentin) 1 MG tablet Take 0.5 mg by mouth 2 times daily. 025 2024 Discontinued(M ed list cleanup (will not trigger notification to Pharmacy)) Active Problems Problem Noted Date Diagnosed Date Chronic kidney disease 06/15/2024 Gait instability 03/10/2023 Overview (03/10/2023): ?? Referred to PT 11/2022 for gait assistance evaluation Internal carotid artery stenosis, bilateral 02/19 Hyponatremia 03/10/2023 Healthcare maintenance 12/03/2022 Overview (03/10/2023): Mammo: Ordered 11/2022 Pap: Unknown. Referred to [facility] 11/2022 for PMB. Ultrasound pending C-scope: 2019, precancerous polyps Cirrhosis of liver 04/21/2018 Overview (09/09/2023): ?? Decompensated QURESHI cirrhosis ?? MELD-Na: 16. Followed by [facility]. Paracentesis q. 2 weeks. EGD 2019 [...] PM EDT): ?? I left message with [facility] requesting provider-provider consult given severity of [...] plan. I will reach out directly to [facility] for update and recommend patient placemen [...] Needs new psychiatrist. On wait list at [facility] in [place]. ?? Referred to [facility] psychopharm clinic 11/2022 Assessment & Plan (05/06/2024 10:45 AM EDT): During IBH Consult Catherine presenting with depressed mood, loss [...] from psych provider. Catherine was referred to [facility] on 03/31. Information given to patient with agency's contact number to request intake for psychotherapy and psychiatry services. During today's consult, Catherine was engaged with active, reflective listening. Reviewed and assessed for risk, current stressors and triggers using open-ended questions. Pt agreed with plan to contact agency and will update clinician if extra support is needed for services. PLAN: (check all that apply) Continue with current services (defined as services in the past 12 months) . Pt was referred to [facility] on 03/31. clinician provided information and printed out letter with agency contact numbers. clinician will be available if requested during next consult. Assessment & Plan (02/12/2024 9:53 AM EDT): PLAN: (check all that apply) New/Additional Services needed Off-site services for Behavioral Health Integration Plan External OP therapy referral and OP psychiatry Referral Patient Self Plan Patient to reach out to [facility] team as needed, Comply with medication , and Patient to engage in OP therapy Tardive dyskinesia 04/21/2018 Thrombocytopenia 04/21/2018 Type 2 diabetes mellitus without complication Overview (03/17/2024): Tresiba 54 units hs lispro sliding scale- BS <150-12 units 150-199-14 units 200-249- 16 units 250-300- 18 units >300-20 units A1c: 11/2022 11% 01/2023 9.9% BMP: 11/2022 Microalbumin: Foot Exam: Foot exam with Risk 3-Significant loss of protective sensation. Eye Exam:Pending [facility] referral Lipid panel: 11/2022 ASCVD: 6.7% [...] (09/09/2023 4:10 PM EST): ?? POC BS [facility] s/p 10 units lispro in office. UA [...] scale as prescribed ?? STAT referral to [facility] DM educator Lab Results Component Value [...] and do not with to continue with [facility] endocrinology Resolved Problems Problem Noted Date Diagnosed Date Resolved Date Hypervolemia 10/17/2022 02/14/2023 Noncompliance with treatment regimen 04/01/2022 12/07/2022 Nonalcoholic steatohepatitis 04/21/2018 03/10/2023 Encounters * This document contains information received from the source organization and may not represent a complete record from that organization. Date Type Department Care Team Description 02/12/2025 1:30 PM EDT Office Visit [address] [address] Ana Davis FNP Cirrhosis of liver with ascites, unspecified hepatic cirrhosis type (CMS/HCC) (CMS/HCC) (Primary Dx); Type 2 diabetes mellitus with chronic kidney disease, with long-term current use of insulin, unspecified CKD stage (CMS/HCC) 02/12/2025 Travel 02/12/2025 Patient Outreach [facility] [address] [place] [phone] Ana Davis FNP 02/11/2025 Patient Outreach [address] [address] Ana Davis FNP Care Coordination 02/10/[address] [address] Parker Musa [place] Chart Prep 02/10/[address] [address] Ana Davis FNP Nurse Triage 02/09/[address] [address] Ana Davis FNP Med Refill 02/03/2025 Patient Outreach [address] [address] Ana Davis FNP Transition Of Care (Tcm) 02/02/2025 Patient Outreach [address] [address] Ana Davis FNP 02/02/2025 Patient Outreach [facility] [address] [place] [address] Ana Davis FNP 01/28/2025 Telephone [facility] [address] [place] [address] Ana Davis FNP Referral 01/27/2025 Telephone [facility] [address] [place] [address] Aurelia Sarkar, Cesia 01/21/2025 Patient Outreach [facility] [address] [place] [address] Ana Davis FNP Transition Of Care (Tcm) (HDF scheduled) 01/20/2025 Population Health Risk Score [facility] () [address] [phone] Provider, Population Health Generic 12/31/2024 Patient Outreach [facility] [address] [place] [address] Ana Davis FNP Transition Of Care (Tcm) (HDF- Transferred to Rehab) 12/23/2024 Telephone [facility] [address] [place] [address] Ana Davis FNP Care Management ([facility]- f/u call lvm) 12/18/2024 Telephone [facility] [address] [place] [address] Ana Davis FNP No Show 12/15/2024 Patient Outreach [facility] [address] [place] [address] Ana Davis FNP Transition Of Care (Tcm) (HDF- Unscheduled - PER DAUGHTER PATIENT WAS TRANSFERRED TO [facility]) 12/14/2024 Telephone [facility] [address] [place] [address] Virgen Awad, OD 12/10/2024 Telephone [facility] [address] [place] [address] Ana Davis FNP Care Management (C3- f/u call) 12/10/2024 Telephone [facility] [address] [place] [address] Ana Davis FNP Durable Medical Equipment (DME: Wheelchair) 12/03/[address] [address] Maude Dennis, MARQUITA Care Management (C3- appt reminder call) 12/01/2024 Patient Outreach [address] [address] [facility] Transition Of Care (Tcm) 11/26/2024 Orders Only [facility] [address] [place] [phone] [facility] Schizophrenia, unspecified type (CMS/HCC) (Primary Dx) 11/26/2024 Orders Only [facility] [address] [place] [address] [facility] Cirrhosis of liver with ascites, unspecified hepatic cirrhosis type (CMS/HCC) (CMS/HCC) (Primary Dx) 11/26/[address] [address] [facility] PAP appt 11/25/[address] [address] Maude Dennis, MARQUITA Care Management ([facility]- f/u call) 11/23/[address] [address] Maude Dennis RN 11/19/[address] [address] Carolina Haynes, MARQUITA Care Coordination 11/18/2024 1:30 PM EST Office Visit [address] [address] [facility] Cirrhosis of liver with ascites, unspecified hepatic cirrhosis type (CMS/HCC) (CMS/HCC) (Primary Dx); Schizophrenia, unspecified type (CMS/HCC); Type 2 diabetes mellitus with chronic kidney disease, with long-term current use of insulin, unspecified CKD stage (CMS/HCC); Abnormal uterine bleeding; Heart murmur; Urinary incontinence, unspecified type 11/18/2024 Travel from Last 3 Months Immunizations Name Administration [...] Sign Reading Time Taken Comments Blood Pressure 118/65 02/12/2025 1:48 PM EDT Pulse 76 02/12/2025 1:48 PM EDT Temperature 36.6 ??C (97.8 ??F) 02/12/2025 1:48 PM ED T Respiratory Rate 20 02/12/2025 1:48 PM EDT Oxygen Saturation 97% 08/31/2024 10:55 AM EST Inhaled Oxygen Concentration - - Weight 79.8 kg (176 lb) 02/12/2025 1:48 PM EDT Height 157.5 cm (5' 2 ) 02/12/2025 1:48 PM EDT Body Mass Index 32.19 02/12/2025 1:48 PM EDT Plan of Treatment Upcoming Encounters Date Type Department Care Team (Late st Contact Info) Description 02/15/2025 11:15 AM EDT Office Visit [facility] [address] [place] [address] Elisabeth Melchor, OD [address] [place] [address] 03/19/2025 1:30 PM EDT Office Visit [facility] [address] [place] [address] Ana Davis, SHELL WORKER [address] [place] [address] Health Maintenance Due Date Last Done Comments [...] 10/18/2022 COVID-19 Vaccine ( season) 2024 Diabetes: Foot Exam 02/09/2025 02/10/2024, 02/10/2024, 02/10/2024, Additional history exists Diabetes: Hemoglobin A1C 05/14/2025 025, 08/31/2024, 06/12/2024, Additional history exists Lipid Panel 08/31/2025 08/31/2024, 11/21, 05/21/2022 SDOH Screening 09/07/2025 09/07/2024 Depression Screening 11/18/2025 11/18/2024, 11/18/19 25 Tobacco Screening 11/19/2025 11/19/2024 DTaP/Tdap/Td Vaccines (3 - Td or Tdap) 12/03/2032 12/03/2022, 11/27/2012, 12/01/1997, Additional history exists Hepatitis B Vaccines Completed 10/18/2022, 11/02/2019, 05/16/2015 HIV Screening Completed 12/03/2022 Hepatitis C Screening Completed 12/03/2022, 023 Pneumococcal Vaccine: 50+ Years Completed 12/03/2022, 07/29/2013, 02/17/2007 Influenza Vaccine Completed 08/31/2024, , 09/02/2023, Additional history exists HIB Vaccines Aged Out [...] Hemoglobin A1c < 8 Result Component 10.4(02/13/20 2:34 PM EDT) No Andree Ulloa PharmD Procedures Procedure Name Priority Date/Time Associated Diagnosis Comments POCT GLUCOSE Routine 02/12/2025 2:34 PM EDT Type 2 diabetes mellitus with chronic kidney disease, with long-term current use of insulin, unspecified CKD stage (CMS/HCC) POCT GLYCATED HEMOGLOBIN, TOTAL Routine 02/12/2025 2:34 PM EDT Type 2 diabetes mellitus with chronic kidney disease, with long-term current use of insulin, unspecified CKD stage (CMS/HCC) PROTHROMBIN TIME-INR Routine 11/18/2024 3:21 PM EST Cirrhosis of liver with ascites, unspecified hepatic cirrhosis type (CMS/HCC) (CMS/HCC) CBC WITH AUTO DIFFERENTIAL Routine 11/18/2024 3:21 [...] use of insulin, unspecified CKD stage (CMS/HCC) LIPID PANEL, STANDARD Routine 08/31/2024 11:55 AM [...] Relevant to Health Maintenance Results * (ABNORMAL) POCT HGB A1C (02/12/2025 2:34 PM EDT) Hemoglobin A1C 10.4(A) 4.0 - 6.0 % QC Media Lot # [id number] Lot# Expiration Date Blood 02/12/2025 2:34 PM EDT [facility] POINT OF CARE TEST ENTER/EDIT ORDERABLES Final Result * (ABNORMAL) POCT Glucose (02/12/2025 2:34 PM EDT) Only the most recent of2 resultswithin the time period is included. Glucose Blood, POC 354(A) 60 - 200 mg/dL QC Media Lot # [id number] Lot# Expiration Date Blood Capillary blood specimen / Unknown 02/12/2025 2:34 PM EDT [facility] POINT OF CARE TEST ENTER/EDIT ORDERABLES Final Result * (ABNORMAL) CBC auto differential (11/18/2024 3:21 PM EST) White Blood Count 4.0(L) 4.8 - 10.8 X10*3/uL [facility] Red Blood Count 3.02(L) 4.20 - 5.50 X10*6/uL [facility] Hemoglobin 8.4(L) 12.0 - 16.0 g/dl [facility] Hematocrit 25.1(L) 37.0 - 47.0 % [facility] Mean Corpuscular Volume 83.1 80.0 - 98.0 fL [facility] Mean Corpuscular Hemoglobin 27.8 27.0 - 33.0 pg [facility] Mean Corpuscular HGB Conc 33.5 31.0 - 35.0 g/dl [facility] Red Cell Distribution Width 15.1 11.0 - 16.0 % [facility] Platelet Count 44(L) 160 - 400 X10*3/uL [facility] Mean Platelet Volume 10.9 9.4 - 12.3 fL [facility] Neutrophils Percent Auto 76.0(H) 45 - 73 % [facility] Imm Gran Pct Auto 0.5(H) 0.0 - 0.4 % [facility] Lymphocytes Percent Auto 12.6(L) 20 - 40 % [facility] Monocytes Percent Auto 6.9 2 - 11 % [facility] Eosinophils Percent Auto 3.5 0 - 4 % [facility] Basophils Percent Auto 0.5 0 - 2 % [facility] NRBC Pct Auto 0.0 0.0 - 0.2 /100WBC [facility] Neutrophils Absolute Auto 3.1 2.0 - 8.3 x10*3/uL [facility] Imm Gran Abs Auto 0.02 0.00 - 0.03 X10*3/uL [facility] Lymphocytes Absolute Auto 0.5(L) 1.2 - 4.9 X10*3/uL [facility] Monocytes Absolute Auto 0.3 0.1 - 1.2 X10*3/uL [facility] Eosinophils Absolute Auto 0.1 0.0 - 0.4 X10*3/uL [facility] Basophils Absolute Auto 0.0 0.0 - 0.2 X10*3/uL [facility] NRBC Abs Auto 0.000 0.0 - 0.012 X10*3/uL [facility] Blood Venous blood specimen / Unknown 11/18/2024 3:21 PM EST 11/18/2024 4:34 PM EST [facility] LAB BLOOD ORDERABLES Final Re sult Performing Organization Address [facility] Co de Phone Number [facility] [address] [place] [address] [phone] * (ABNORMAL) Prothrombin Time-INR (11/18/2024 3:21 PM EST) Prothrombin Time 14.9(H) 10.9 - 12.4 SEC [facility] INTERNATIONAL NORM RATIO 1.3(H) 0.9 - 1.1 [facility] Comment:INTERNATIONAL NORMAL IZED RATIO (INR) REFERENCE RANGES Reference RangeFor patients not on anticoagulant therapy: 0.9 - 1.1INR ranges for oral anticoagulanttherapy:For prevention and treatment of venous thrombosis and pulmonary embolism: 2.0 - 3.0For acute myocardial infarction with aspirin therapy: 2.0 - 3.0For acute myocardial infarction without aspirin therapy: 3.0 - 4.0For patients with mechanical prosthetic heart valves: 2.5 - 3.5 Blood Venous blood specimen / Unknown 11/18/2024 3:21 PM EST 11/18/2024 4:34 PM EST [facility] LAB BLOOD ORDERABLES Final Re sult Performing Organization Address City/[facility]/ZIP Co de Phone Number [facility] [address] [place] [address] [phone] * (ABNORMAL) Comprehensive Metabolic Panel (11/18/2024 3:21 PM EST) Sodium 138 135 - 145 mmol/L [facility] Potassium 3.4 3.3 - 5.1 mmol/L [facility] Chloride 108 96 - 108 mmol/L [facility] Carbon Dioxide 22 22 - 29 mmol/L [facility] Anion Gap 11(L) 12 - 20 [facility] Urea Nitrogen (BUN) 20(H) 9 - 16 mg/dL [facility] Creatinine, Serum 0.94 0.5 - 1.4 mg/dL [facility] Estimated Glomerular Filt Rate >60 [facility] Comment:Chronic Kidney Disea se: Estimated GFR < 60 mL/min/[id number] Kidney Disease: Estimated GFR < 15 mL/min/1.73m2 Glucose 293(H) 60 - 115 mg/dL [facility] Calcium 7.9(L) 8.4 - 10.2 mg/dL [facility] Bilirubin, Total 0.9 0.0 - 1.0 mg/dL [facility] Aspartate Amino Transferase 42(H) 5 - 31 U/L [facility] Alanine Aminotransferase 21 0 - 31 U/L [facility] Total Protein 7.1 6.5 - 8.0 g/dL [facility] Albumin Level 2.6(L) 3.5 - 5.0 g/dL [facility] Alkaline Phosphatase 103 39 - 117 U/L [facility] Blood Venous blood specimen / Unknown 11/18/2024 3:21 PM EST 11/18/2024 4:34 PM EST [facility] [employer] WORK[employer] LAB BLOOD ORDERABLES Final Re sult [facility] [address] [place] [phone] [phone] * Lipid Panel, Standard (08/31/2024 11:55 AM EST) Triglycerides 53 <150 mg/dL [facility] Comment:Desirable Triglyceri de: less than 150 mg/dLBorderline High Triglyceride 150-199 mg/dLHigh Triglyceride: 200-499 mg/dLVery High Triglyceride: greater than or equal to 5OO mg/dL Cholesterol 132 <200 mg/dL [facility] Comment:Desirable Cholestero l: less than 200 mg/dLBorderline High Cholesterol: 200-239 mg/dLHigh Cholesterol: greater than 239 mg/dL LDL Cholesterol Calculated 74 <100 mg/dL [facility] Comment:Desirable LDL: less than 100 mg/dLNear Optimal/Above Optimal LDL: 110- 129 mg/dLBorderline High LDL: 130-159 mg/dLHigh LDL: 160-189 mg/dLVery High LDL: greater than or equal to 190 mg/dL HDL Cholesterol 48 >40 mg/dL [facility] Comment:Desirable HDL: great er than 40 mg/dL Note: This HDL assay may give artificially low results in patients with liver disease. Blood Venous blood specimen / Unknown 08/31/2024 11:55 AM EST 08/31/2024 1:07 PM EST [facility] LAB BLOOD ORDERABLES Final Re sult [facility] [address] [place] [address] [phone] * Hepatitis C Antibody with Reflex to HCV, RNA, Quantitative, Real-Time PCR (12/03/2022 11:57 AM EST) Hepatitis C Antibody NON-REACT LAURA NON-REACT LAURA [employer] [place] [employer] Index 0.18 <1.00 [employer] [place] [employer] Comment: HCV antibody was non-reactive. There is no laboratory evidence of HCV infection. In most cases, no further action is required. However, if recent HCV exposure is suspected, a test for HCV RNA (test code 32525) is suggested. For additional information please refer to http://education.Near Page/faq/TBD67m0 (This link is being provided for informational/ educational purposes only.) Blood Venous blood specimen / Unknown 12/03/2022 11:57 AM EST 12/03/2022 11:58 AM EST Narrative [facility] - 12/04/2022 2:01 AM EST FASTING:NO FASTING: NO [facility] LAB BLOOD ORDERABLES Final Re sult Performing Organization Address City/[facility]/ZIP Co de Phone Number [facility] [address], [place] [address] [employer] [place] [employer] [address] [facility], ([address]) [place] [address] * HIV-1/2 Antigen and Antibodies, Fourth Generation, with Reflexes (12/03/2022 11:57 AM EST) Pathologist [facility] HIV Antigen/Antibody, 4th Generation NON-REAC TIVE NON-REAC TIVE [employer] [place] [employer] [facility] Comment: HIV-1 antigen and HIV-1/HIV-2 antibodies [...] ?? For additional information please refer to http://education.Near Page/faq/LFT750 (This link is being provided for informational/ educational purposes only.) The performance of this assay has not been clinically validated in patients less than 2 years old. Blood Venous blood specimen / Unknown 12/03/2022 11:57 AM EST 12/03/2022 11:58 AM EST Narrative [facility] - 12/04/2022 2:01 AM EST FASTING:NO FASTING: NO [facility] LAB BLOOD ORDERABLES Final Re sult FRANCIA [address] [place] [address], [place] [phone] [employer] [place] [facility] [address] [facility], ([address]) [place] [address] * DIGITAL BILATERAL SCREEN 1 (08/17/2019 4:20 PM EDT) Anatomical Region Laterality Modality Breast Bilateral Mammography 08/17/2019 4:20 PM EDT Narrative 08/17/2019 4:22 PM EDT Refer to the Notes tab for result details [facility] Procedure: DIGITAL BILATERAL SCREEN 1 Procedure Note Provider, MD Paulo - 01/12/2023 Refer to the Notes tab for result details [facility] Procedure: DIGITAL BILATERAL SCREEN 1 Yash Arredondo SHELL WORKER IMG BI PROCEDURES Final Result from Last 3 Months or Most Recently Relevant to Health Maintenance Insurance [employer] C3 Care Teams [employer] Air[employer] Mechanic Relationship Specialty Start Date End Date Ana Davis FNP [address] [place] [phone] PCP - General Family Medicine 04/05/22 Andree Ulloa, PharmD [address] [place] [phone] Pharmacist Internal Medicine 05/09/23 Flavia Segundo Snack StewardessLoan Operations Specialist 10/10/23 Gabrielle Fitch [employer]ack StewardessLoan Operations Specialist 11/05/24
--- OUTSIDE RECORDS SUMMARY | 2025-02-12 15:37 | XMS_ITS | Encounter Summary ---
Author Organization [employer] Address [address] [facility] 7t [place] [address] Care Team Providers Care Crew Leader Name Role Phone [facility] Primary Care Provider [phone] Andree Ulloa PharmD Unavailable [phone] Maude Dennis RN Unavailable [phone] Reason for Visit * Reason Comments Med Refill Encounter Details Date Type Department Care Team (Late st Contact Info) Description 10/03/2023 Refill [facility] [address] [place] [address] [facility], [facility] [address] [place] [address] Schizophrenia, unspecified type (CMS/HCC) Social History Tobacco [...] Description 02/15/2025 11:15 AM EDT Office Visit [facility] OPTOMETRY [address] [place] [address] Tarka, Elisabeth, OD [address] [place] [address] 03/19/2025 1:30 PM EDT Office Visit [facility] MEDICINE 230 [place] [address] [facility] [address] [place] [address] documented as of this encounter Goals Goal [...] Component 10.4(02/13/20 2:34 PM EDT) No Andree Ulloa, PharmD documented as of this encounter Visit Diagnoses Diagnosis Schizophrenia, unspecified type (CMS/HCC) documented in this encounter Additional Health Concerns Assessment Noted Time PHQ-9 Depression Total Score: 0 09/02/20 12:14 PM EST documented as of this encounter Care Teams Crew Leader Relationship Specialty Start Date End Date Susan Ana [facility] [address] [place] [address] PCP - General Family Medicine 04/05/22 Andree Ulloa, PharmD [address] [place] [address] Pharmacist Internal Medicine 05/09/23 Maude Dennis RN [address] [place] [address] Sander OperatorEngineer Gas Pumping Station 08/27/24 12/22/24 Flavia Segundo Director Of Clinical EducationEngineer Gas Pumping Station 10/10/23 [employer] 08/14/24 02/11/25 Gabrielle Fitch Director Of Clinical EducationEngineer Gas Pumping Station 11/05/24 documented as of this encounter
--- OUTSIDE RECORDS SUMMARY | 2025-02-12 15:37 | XMS_ITS | Encounter Summary ---
Author Organization [employer] Address [address] [facility] 7t [place] [address] Care Team Providers Care Director Process Improvement Name Role Phone Ana Davis APPLICATION ARCHITECT Primary Care Provider Andree Ulloa PharmD Unavailable [phone] Encounter Details Date Type Department Care Team (Latest Contact Info) Description 02/12/2025 Travel Social History Tobacco Use Types Packs/Day [...] Description 02/15/2025 11:15 AM EDT Office Visit [facility] OPTOMETRY [address] [place], [place] [address] TarkaElisabeth, OD [address] [place] [address] 03/19/2025 1:30 PM EDT Office Visit [facility] MEDICINE 230 [place] [address] [place], Ana, APPLICATION ARCHITECT [address] [place] [address] documented as of this encounter Goals Goal [...] 10.4(02/13/20 25 2:34 PM EDT) No Andree Ulloa PharmD documented as of this encounter Visit Diagnoses Not on filedocumented in this encounter Additional Health Concerns Assessment Noted Time PHQ-9 Depression Total Score: 10 025 1:44 PM EST documented as of this encounter Care Teams Director Process Improvement Relationship Specialty Start Date End Date [place] Ana, APPLICATION ARCHITECT [address] [place] [address] PCP - General Family Medicine 04/05/22 Andree Ulloa, ChelyD [address] [place] [address] Pharmacist Internal Medicine 05/09/23 Flavia Segundo Cottrell OperatorAudio Production Manager 10/10/23 Gabrielle Fitch Cottrell OperatorAudio Production Manager 11/05/24 documented as of this encounter
--- OUTSIDE RECORDS SUMMARY | 2025-02-12 15:37 | XMS_ITS | Clinical Summary ---
Author Organization [facility] Address [address] [facility] [address] [place] [address] Phone Care Team Providers Care Emulsion Coater Name Role Phone Unavailable Primary Care Provider [...] morning. 3 Active Insulin Pen Needle (Pen Irving 01/03 ) 31G X 5 MM misc [...] Type 2 diabetes mellitus without complication Immunizations Immunization Administration Dates Next Due Hepatitis B 10/18/2022,11/02/2019,05/16/2015 [...] Care Team (Late st Contact Info) Description 07/05/2025 4:15 PM EDT Office [facility] [address] [place] [address] Rigo Freed MD [address] [facility] [address] [place] [address] Health Maintenance Due Date Last [...] 06/12/2024, 02/08/2023, Additional history exists Pneumococcal Vaccine: 50+ Years Completed 12/03/2022, 07/29/2013, 02/17/2007 Pneumococcal Vaccine: Peds ( 0 to 5 Years) and At-Risk Patients (6 to 49 Years) Discontinued 12/03/2022, 07/29/2013, 02/17/2007 Influenza Vaccine Completed 08/31/2024, , 10/05/2022, Additional history exists [place]
--- OUTSIDE RECORDS SUMMARY | 2025-02-12 15:37 | XMS_ITS | Encounter Summary ---
Author Organization [employer] Address [address] [facility] 7t [place] [address] Care Team Providers Care Network Desktop Support Specialist Name Role Phone [facility] Primary Care Provider [phone] Andree Ulloa PharmD Unavailable [phone] Reason for Visit * Reason Comments Follow-up Encounter Details Date Type Department Care Team ([facility] st Contact Info) Description 02/12/2025 1:30 PM EDT Office Visit [facility] MEDICINE [address] [place], [place] [phone] [facility] [address] [place] [address] Cirrhosis of liver with ascites, unspecified hepatic cirrhosis type (CMS/HCC) (CMS/HCC) (Primary Dx); Type 2 diabetes mellitus with chronic kidney disease, with long-term current use of insulin, unspecified CKD stage (CMS/HCC) Social History Tobacco Use Types Packs/Day [...] 20 02/12/2025 1:48 PM EDT Oxygen Saturation - - Inhaled Oxygen Concentration - - Weight 79.8 kg (176 lb) 02/12/2025 1:48 PM EDT Height 157.5 cm (5' 2 ) 02/12/2025 1:48 PM EDT Body Mass Index 32.19 02/12/2025 1:48 PM EDT documented in this encounter Plan of Treatment Upcoming Encounters Date Type Department Care Team (Late st Contact Info) Description 02/15/2025 11:15 AM EDT Office Visit [facility] OPTOMETRY [address] [place] [address] Elisabeth Melchor, OD [address] [place] [address] 03/19/2025 1:30 PM EDT Office Visit [facility] MEDICINE [address] [place], [place] [phone] [place], Ana, ACCREDITATION MANAGER [address] [place] [address] Scheduled Orders Name Type Priority Associated Diagnoses Orde r Schedule Comprehensive Metabolic Panel Lab Routine Cirrhosis of liver with ascites, unspecified hepatic cirrhosis type (CMS/HCC) (CMS/HCC) Expected: 02/12/2025 (Approximate), Expires: 02/12/2026 CBC auto differential Lab Routine Cirrhosis of liver with ascites, unspecified hepatic cirrhosis type (CMS/HCC) (CMS/HCC) Expected: 02/12/2025 (Approximate), Expires: 02/12/2026 documented as of this encounter Goals Goal Patient Goal Type Associated Problems Recent Progress Patient-Stated? Author Check your blood sugar as directed General On track( 4:12 PM EDT) No Jacob Llanso PharmD Note: Use CGM, ensuring sensor is [...] Name Priority Date/Time Associated Diagnosis Comments POCT GLYCATED HEMOGLOBIN, TOTAL Routine 02/12/2025 2:34 PM EDT Type 2 diabetes mellitus with chronic kidney disease, with long-term current use of insulin, unspecified CKD stage (CMS/HCC) POCT GLUCOSE Routine 02/12/2025 2:34 PM EDT Type 2 diabetes mellitus with chronic kidney disease, with long-term current use of insulin, unspecified CKD stage (CMS/HCC) documented in this encounter Results * (ABNORMAL) POCT Glucose (02/12/2025 2:34 PM EDT) [facility] Glucose Blood, POC 354(A) 60 - 200 mg/dL QC Media Lot # [id number] Lot# Expiration Date Blood Capillary blood specimen / Unknown 02/12/2025 2:34 PM EDT [facility] POINT OF CARE TEST ENTER/EDIT ORDERABLES Final Result * (ABNORMAL) POCT HGB A1C (02/12/2025 2:34 PM EDT) Pathologist [facility] Hemoglobin A1C 10.4(A) 4.0 - 6.0 % QC Media Lot # [id number] Lot# Expiration Date Blood 02/12/2025 2:34 PM EDT Result [facility] POINT OF CARE TEST ENTER/EDIT ORDERABLES Final Result documented in this encounter Visit Diagnoses Diagnosis Cirrhosis of liver with ascites, unspecified hepatic cirrhosis type (CMS/HCC) (CMS/HCC)- Primary Type 2 diabetes mellitus with chronic kidney disease, with long-term current use of insulin, unspecified CKD stage (CMS/HCC) documented in this encounter Additional Health Concerns Assessment Noted Time PHQ-9 Depression Total Score: 10 025 1:44 PM EST documented as of this encounter Care Teams Network Desktop Support Specialist Relationship Specialty Start Date End Date [facility] [address] [place] [address] PCP - General Family Medicine 04/05/22 Andree Ulloa PharmD [address] [place] [address] Pharmacist Internal Medicine 05/09/23 Flavia Segundo Money ManagerCat Tender 10/10/23 Gabrielle Fitch Money ManagerCat Tender 11/05/24 documented as of this encounter
--- OUTSIDE RECORDS SUMMARY | 2025-02-12 15:37 | XMS_ITS | Encounter Summary ---
Author Organization [employer] Address [address] [facility] 7t [place] [address] Care Team Providers Care Pumper Gager Name Role Phone [facility] Primary Care Provider [phone] Andree Ulloa PharmD Unavailable [phone] Reason for Visit * Reason Onset Date Comments Med Refill 02/09/2025 Encounter Details Date Type Department Care Team (Late st Contact Info) Description 02/09/2025 Telephone [facility] MEDICINE [address] [place], [place] [phone] [facility] 230 [place] [address] Med Refill Social History Tobacco Use Types [...] encounter Miscellaneous Notes * Telephone Encounter - Reinaldo Darling - 02/09/2025 9:50 AM EDT TC from pt requesting medication refill. Medications needing refill : insulin degludec (Tresiba FlexTouch) 200 UNIT/ML injection Blood Glucose Monitoring Suppl (D-Care Glucometer) w/Device kit To be sent to: [id number] - [place], [place] - [address] [place] [address] documented in this encounter Plan of Treatment Upcoming Encounters Date Type Department Care Team (Late st Contact Info) Description 02/15/2025 11:15 AM EDT Office Visit [facility] OPTOMETRY [address] [place] [address] Elisabeth Melchor, OD [address] [place] [address] 03/19/2025 1:30 PM EDT Office Visit [facility] MEDICINE [address] [place] [address] Kerkhoven, Ana, [facility] [address] [place] [address] documented as of this encounter Goals Goal [...] documented as of this encounter Care Teams Pumper Gager Relationship Specialty Start Date End Date Ana Davis FNP [address] [place] [address] PCP - General Family Medicine 04/05/22 Andree Ulloa PharmD [address] [place] [address] Pharmacist Internal Medicine 05/09/23 Flavia Segundo Fbi Special AgentBody Hanger 10/10/23 [employer] 08/14/24 02/11/25 Gabrielle Fitch Fbi Special AgentBody Hanger 11/05/24 documented as of this encounter
--- OUTSIDE RECORDS SUMMARY | 2025-02-12 15:37 | XMS_ITS | Encounter Summary ---
Author Organization [employer] Address [address] [facility] 7t [place] [address] Care Team Providers Care Linoleum Installer Name Role Phone [facility] Primary Care Provider [phone] Andree Ulloa PharmD Unavailable [phone] Maude Dennis RN Unavailable [phone] Reason for Visit * Reason Onset Date Comments FYI 09/28/2024 Encounter Details Date Type Department Care Team (Late st Contact Info) Description 09/28/2024 Telephone [facility] 230 [place], [place] [phone] [facility], [facility] 230 [place], [place] [phone] FYI Social History Tobacco Use Types Packs/Day [...] 2:55 PM EST Tc from Natalie at [facility] calling to inform provider pt refused OT evaluation. If any questions contact Natalie at [phone] documented in this encounter Plan of Treatment Upcoming Encounters Date Type Department Care Team (Late st Contact Info) Description 02/15/2025 11:15 AM EDT [facility] OPT[facility]ETRY [address] [place] [address] Elisabeth Melchor, OD [address] [place] [address] 03/19/2025 1:30 PM EDT Office Visit [facility] [address] [place] [address] TropicAna FNP [address] [place] [address] documented as of this encounter Goals Goal [...] documented as of this encounter Care Teams Linoleum Installer Relationship Specialty Start Date End Date Ana Davis FNP [address] [place] [address] PCP - General Family Medicine 04/05/22 Andree Ulloa PharmD [address] [place] [address] Pharmacist Internal Medicine 05/09/23 Maude Dennis, MARQUITA [address] [place] [address] Leader AssemblerSenior Compensation Analyst 08/27/24 12/22/24 Flavia Segundo Data Input ClerkSenior Compensation Analyst 10/10/23 [employer] 08/14/24 02/11/25 Gabrielle Fitch Data Input ClerkSenior Compensation Analyst 11/05/24 documented as of this encounter
--- OUTSIDE RECORDS SUMMARY | 2025-02-12 15:37 | XMS_ITS | Encounter Summary ---
Author Organization [employer] Address [address] [facility] 7t [place] [address] Care Team Providers Care Region Manager Name Role Phone [facility] Primary Care Provider [phone] Andree Ulloa PharmD Unavailable [phone] Encounter Details Date Type Department Care Team ([facility] st Contact Info) Description 02/12/2025 Patient Outreach [facility] MEDICINE [address] [place], [place] [phone] [facility] [address] [place] [address] Social History Tobacco Use Types Packs/Day Years [...] as of this encounter Progress Notes * Heena Batista - 02/12/2025 11:11 AM EDT CHW Heena Batista placed outbound call to patients daughter, no answer at this time. LVM with details of appt and to call back if patient is not able to attend HDF so we can r/s. documented in this encounter Plan of Treatment Upcoming Encounters Date Type Department Care Team (Late st Contact Info) Description 02/15/2025 11:15 AM EDT Office Visit [facility] OPTOMETRY [address] [place] [address] Elisabeth Melchor, OD [address] [place] [address] 03/19/2025 1:30 PM EDT Office Visit [facility] MEDICINE [address] [place] [address] Ana Davis FNP [address] [place] [address] documented as of this encounter Goals Goal [...] documented as of this encounter Care Teams Region Manager Relationship Specialty Start Date End Date Ana Davis FNP [address] [place] [address] PCP - General Family Medicine 04/05/22 Andree Ulloa PharmD [address] [place] [address] Pharmacist Internal Medicine 05/09/23 Flavia Segundo Natural Resources ManagerTab Card Press Operator 10/10/23 Gabrielle Fitch Natural Resources ManagerTab Card Press Operator 11/05/24 documented as of this encounter
--- OUTSIDE RECORDS SUMMARY | 2025-02-12 15:37 | XMS_ITS | Encounter Summary ---
Author Organization [employer] Address [address] [facility] 7t [place] [address] Care Team Providers Care Records Management Specialist Name Role Phone [facility] Primary Care Provider [phone] Andree Ulloa PharmD Unavailable [phone] Maude Dennis RN Unavailable [phone] Reason for Visit * Reason Onset Date Comments Med Refill 08/05/2024 Encounter Details Date Type Department Care Team (Late st Contact Info) Description 08/05/2024 Telephone [facility] MEDICINE 230 [place], [place] [phone] [facility] [address] [place], [place] [phone] Med Refill Social History Tobacco Use Types [...] from pt requesting a HDF appt. Hospital: [facility] Date of admission: 06/23/24 Discharge date: 08/13/24 Diagnosed: Multiple fractures of the ribs documented in this encounter Plan of Treatment Upcoming Encounters Date Type Department Care Team (Late st Contact Info) Description 02/15/2025 11:15 AM EDT Office Visit [facility] OPTOMETRY [address] [place] [address] Elisabeth Melchor, OD [address] [place] [address] 03/19/2025 1:30 PM EDT Office Visit [facility] MEDICINE 230 [place] [address] Ana Davis FNP [address] [place] [address] documented as of this encounter Goals Goal Patient Goal Type Associated Problems Recent Progress Patient-Stated? Author Check your blood sugar as directed General On track( 023 4:12 PM EDT) No Jacob Llanos, PharmFelicita Note: Use CGM, ensuring sensor is scanned at least once every 8 hours to capture 24H data. Check BG manually, as directed. Take your medications every day Lifestyle Worsening( 4:12 PM EDT) No Jacob Llanos PharmFelicita Hemoglobin A1c < 8 Result Component 10.4(02/13/20 25 2:34 PM EDT) No Andree Ulloa PharmD documented as of this encounter Visit Diagnoses Not on filedocumented in this encounter Additional Health Concerns Assessment Noted Time PHQ-9 Depression Total Score: 11 024 10:29 AM EDT documented as of this encounter Care Teams Records Management Specialist Relationship Specialty Start Date End Date Ana Davis FNP [address] [place] [address] PCP - General Family Medicine 04/05/22 Andere Ulloa, ChelyD [address] [place] [address] Pharmacist Internal Medicine 05/09/23 Maude Dennis, MARQUITA [address] [place] [address] Fan Blade AlignerScroll Shear Operator 08/27/24 12/22/24 Flavia Segundo Tornado ChaserScroll Shear Operator 10/10/23 [employer] 08/14/24 02/11/25 Gabrielle Fitch Tornado ChaserScroll Shear Operator 11/05/24 documented as of this encounter
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
--- OUTSIDE RECORDS SUMMARY | 2025-02-12 15:37 | XMS_ITS | Encounter Summary ---
Author Organization [employer] Address [address] [facility] [address] [place] [address] Care Team Providers Care Seed Cleaning Machine Operator Name Role Phone [place] [facility] Primary Care Provider [phone] Andree Ulloa PharmD Unavailable [phone] Reason for Visit * Reason Comments Care Coordination Encounter Details Date Type Department Care Team ([facility] st Contact Info) Description 02/11/2025 Patient Outreach [facility] MEDICINE [address] [place], [place] [phone] [facility] [address] [place] [address] Care Coordination Social History Tobacco Use Types Packs/Day Years [...] encounter Progress Notes * Heena Batista - 02/11/2025 10:16 AM EDT CHW Heena Batista placed call to Analytics Lead from [facility] Gabrielle Fitch [phone] in regards tocoordinate meeting with PCP. No answer at this time LVM with details. documented in this encounter Plan of Treatment Upcoming Encounters Date Type Department Care Team (Late st Contact Info) Description 02/15/2025 11:15 AM EDT Office Visit [facility] OPTOMETRY [address] [place] [address] Elisabeth Melchor, OD [address] [place] [address] 03/19/2025 1:30 PM EDT Office Visit [facility] MEDICINE [address] [place] [address] [place] FNP [address] [place] [address] documented as of this encounter Goals Goal [...] documented as of this encounter Care Teams Seed Cleaning Machine Operator Relationship Specialty Start Date End Date Ana Davis FNP [address] [place] [address] PCP - General Family Medicine 04/05/22 Andree Ulloa PharmD [address] [place] [address] Pharmacist Internal Medicine 05/09/23 Flavia Segundo Neurological SurgeonShorts Sifter 10/10/23 [employer] 08/14/24 02/11/25 Gabrielle Fitch Neurological SurgeonShorts Sifter 11/05/24 documented as of this encounter
--- OUTSIDE RECORDS SUMMARY | 2025-02-12 15:37 | XMS_ITS | Encounter Summary ---
Author Organization [employer] Address [address] [facility] 7[address] [place] [address] Care Team Providers Care Edger Liner Name Role Phone Ana Davis DIRECTOR PEDIATRIC Primary Care Provider [phone] Andree Ulloa PharmD Unavailable [phone] Maude Dennis RN Unavailable [phone] Encounter Details Date Type Department Care Team (Late Contact Info) Description 01/21/2023 Telephone [facility] MEDICINE [address], [place] [phone] Kimberly Donaldson LPN Social History Tobacco Use [...] Encounters Date Type Department Care Team (Late Contact Info) Description 02/15/2025 11:15 AM EDT Office Visit [facility] OPTOMETRY [address] [place], [place] [phone] Elisabeth Melchor, OD [address] [place], [place] [phone] 03/19/2025 1:30 PM EDT Office Visit [facility] MEDICINE [address] [place] [address] nAa Davis [facility] [address] [place] [address] documented as of this encounter Visit Diagnoses Not on filedocumented in this encounter Additional Health Concerns Assessment Noted Time PHQ-9 Depression Total Score: 0 12/03/19 10:53 AM EST documented as of this encounter Care Teams Edger Liner Relationship Specialty Start Date End Date SusanAna FNP [address] [place] [address] PCP - General Family Medicine 04/05/22 Andree Ulloa PharmD [address] [place], [place] [phone] Pharmacist Internal Medicine 05/09/23 Maude Dennis, MARQUITA [address] [place] [id number] Acid PurifierField Research Assistant 08/27/24 12/22/24 Flavia Segundo Dog Pound AttendantField Research Assistant 10/10/23 [employer] 08/14/24 02/11/25 Gabrielle Fitch Dog Pound AttendantField Research Assistant 11/05/24 documented as of this encounter
--- OUTSIDE RECORDS SUMMARY | 2025-02-12 15:37 | XMS_ITS | Encounter Summary ---
Author Organization [employer] Address [address] [facility] [address] [place] [address] Care Team Providers Care Potato Peeler Name Role Phone [facility] Primary Care Provider [phone] Andree Ulloa PharmD Unavailable [phone] Reason for Visit * Reason Onset Date Comments Nurse Triage 02/10/2025 Encounter Details Date Type Department Care Team ([facility] st Contact Info) Description 02/10/2025 Telephone [facility] MEDICINE [address] [place], [place] [phone] [facility] [address] [place] [address] Nurse Triage Social History Tobacco Use Types Packs/Day Years [...] as of this encounter Progress Notes * Elisha Mays RN - 02/12/2025 12:28 PM EDT [employer] And [employer] Coordinator confirmed with patient's daughter that pt and dtr is agreeable to the HDF appt being rescheduled with PCP on 03/19/25 at 1:30 PM. documented in this encounter Miscellaneous Notes * Telephone Encounter - Lucinda Clark RN - 02/12/2025 1:28 PM EDT Active med list from [facility] received, sent to scan since HDF has been cancelled * Telephone Encounter - Lucinda Clark RN - 02/12/2025 8:58 AM EDT TC placed to [facility], nurse on the geriatric floor will call me back in regards to insulin after morning med pass. Direct ext given * Telephone Encounter - Lucinda Clark RN - 02/11/2025 10:55 AM EDT Per discharge summary in chart, pt. Was receiving Lantus 40u daily while at [facility]. Pharmacy's medrec states this was most likely due to Tresiba not listed to be continued however Lantus is, this may have been a formulary interchange. RN's note from 11/19/24 with [facility] RN states pt. Is not on a sliding scale, and per previous preHDF medrec Not on discharge or dispense history but listed on EPIC: acetaminophen, benztropine, ferrous gluconate, insulin lispro, propranolol, Bactrim, tramadol TC placed to [facility] RN who reports pt. Has not been on sliding scale for as long as they have had her readmitted s/p hospitalization in Sep. [facility] RN reports fasting sugar this morning 412. Confirms using Triseba 54u/ day only for DM meds. Reports blood sugar is only checked once daily when RN comes to home 7 days/ week, family declines checking sugar. [facility] RN will fax over their active med list and blood sugar log. [facility] may need a new referral since pt. No showed to SECURITY INTELLIGENCE ANALYST appts with them 03/30/24, 04/27/24, 05/19/24, 06/08/24. * Telephone Encounter - Annalise Quiñones RN - 02/10/2025 12:33 PM EDT Triage call , Neffort[facility] from [facility] calls regarding Pt Blood sugar being high. BS today is 427 and prior to this has been running in high 300s. Pt does have hospital follow up apt with PCP this saturday02/12/25 at 130pm and is advised of the importance of this apt. Pt only has triseba prescribed at this time. Pt is non compliant with diet. Education has been given regarding the importance of changing diet from high carb to higher protein and good carbs but, Pt disregards this teaching. Advised will forward this information to PCP to consider for apt 02/12/25 and agrees. Protocol Used: Information Only Call - No Triage (Adult) Protocol-Based Disposition: Home Care Positive Triage Question: * General information question, no triage required and triager able to answer question * All higher-acuity triage questions were negative Care Advice Discussed: * Reasons To Call Back - You become worse * Telephone Encounter - Rui Linandez - 02/10/2025 9:36 AM EDT Symptom: High Blood Sugar - Caller Reports Outcome: Talk to a nurse or provider within 15 minutes Reason: Known blood sugar above 300 The caller accepted this outcome. Contact Hernandez from [employer] at [phone] documented in this encounter Plan of Treatment Upcoming Encounters Date Type Department Care Team ([facility] st Contact Info) Description 02/15/2025 11:15 AM EDT Office Visit [facility] OPTOMETRY [address] [place], [place] [phone] Elisabeth Melchor, OD [address] [place] [address] 03/19/2025 1:30 PM EDT Office Visit [facility] MEDICINE [address] [place] [address] [place]rtle BeachAna levy FNP [address] [place] [address] documented as of this encounter Goals Goal [...] documented as of this encounter Care Teams Potato Peeler Relationship Specialty Start Date End Date Ana Davis FNP [address] [place] [address] PCP - General Family Medicine 04/05/22 Andree Ulloa PharmD [address] [place] [address] Pharmacist Internal Medicine 05/09/23 Flavia Segundo Thread GrinderInternist 10/10/23 [employer] 08/14/24 02/11/25 Gabrielle Fitch Thread GrinderInternist 11/05/24 documented as of this encounter
--- OUTSIDE RECORDS SUMMARY | 2025-02-12 15:37 | XMS_ITS | Encounter Summary ---
Author Organization [employer] Address [address] [facility] [address] [place] [address] Care Team Providers Care Tugboat Pilot Name Role Phone [facility] Primary Care Provider [phone] Andree Ulloa PharmD Unavailable [phone] Maude Dennis RN Unavailable [phone] Reason for Visit * Reason Onset Date Comments requesting a call back 02/05/2023 Encounter Details Date Type Department Care Team ([facility] st Contact Info) Description 02/05/2023 Telephone [facility] [address] [place], [place] [phone] [facility] [address] [place], [place] [phone] requesting a call back Social History Tobacco [...] . States needs to return them to [facility] . documented in this encounter Plan of Treatment Upcoming Encounters Date Type Department Care Team (Late st Contact Info) Description 02/15/2025 11:15 AM EDT Office Visit [facility] [address] [place] [address] Elisabeth Melchor, OD [address] [place] [address] 03/19/2025 1:30 PM EDT Office Visit [facility] [address] [place] [address] [facility] [address] [place] [address] documented as of this encounter Visit Diagnoses Not on filedocumented in this encounter Additional Health Concerns Assessment Noted Time PHQ-9 Depression Total Score: 0 12/03/19 10:53 AM EST documented as of this encounter Care Teams Tugboat Pilot Relationship Specialty Start Date End Date Ana Davis [facility] [address] [place] [address] PCP - General Family Medicine 04/05/22 Andree Ulloa PharmD [address] [place] [address] Pharmacist Internal Medicine 05/09/23 Maude Dennis, MARQUITA [address] [place] [address] Psychology InstructorOptomechanical Engineer 08/27/24 12/22/24 Flavia Segundo Sound Technician SupervisorOptomechanical Engineer 10/10/23 [facility] [employer] 08/14/24 02/11/25 Gabrielle Fitch Sound Technician SupervisorOptomechanical Engineer 11/05/24 documented as of this encounter
--- OUTSIDE RECORDS SUMMARY | 2025-02-12 15:37 | XMS_ITS | Encounter Summary ---
Author Organization [employer] Address [address] [facility] 7[address] [place] [address] Care Team Providers Care Metal Solderer Name Role Phone Ana Davis [facility] ADMINISTRATOR Primary Care Provider [phone] Andree Ulloa PharmD Unavailable [phone] Reason for Visit * Reason Onset Date Comments Chart Prep 02/10/2025 Encounter Details Date Type Department Care Team (Late st Contact Info) Description 02/10/2025 Telephone [facility] [address] [place] [address] Parker Musa MA Chart Prep Social History Tobacco Use Types Packs/Day Years [...] encounter Miscellaneous Notes * Telephone Encounter - Parker Musa MA - 02/10/2025 1:20 PM EDT Chart Prep Labs: done Images: not done Referrals: not applicable Vaccines due: yes Screenings: colonoscopy, mammogram, pap smear, eye exam, and foot exam Overdue care gaps: A1c, Glucose, SBIRT, ALEXANDER-7, Disability screen, and Tobacco Notes in chart documented in this encounter Plan of Treatment Upcoming Encounters Date Type Department Care Team (Late st Contact Info) Description 02/15/2025 11:15 AM EDT Office Visit [facility] [address] [place] [address] Elisabeth Melchor, OD [address] [place] [address] 03/19/2025 1:30 PM EDT Office Visit [facility] [address] [place] [address] Ana Davis FNP [address] [place] [address] documented as of this encounter Goals Goal [...] documented as of this encounter Care Teams Metal Solderer Relationship Specialty Start Date End Date Ana Davis FNP [address] [place] [address] PCP - General Family Medicine 04/05/22 Andree Ulloa PharmD [address] [place] [address] Pharmacist Internal Medicine 05/09/23 Flavia Segundo Land Leases And Rentals ManagerField Nurse 10/10/23 [employer] 08/14/24 02/11/25 Gabrielle Fitch Land Leases And Rentals ManagerField Nurse 11/05/24 documented as of this encounter
[2025-02-12 16:13] LABS: MANUAL DIFF FLAG NO
[2025-02-12 16:18] LABS: Basophils Percent Auto 0.6 % (0-2); Eosinophils Absolute Auto 0.4 X10*3/uL (0.0-0.4); Eosinophils Percent Auto 6.3 % (0-4); Hematocrit 28.8 % (37.0-47.0); Imm Gran Abs Auto 0.09 X10*3/uL (0.00-0.03); Imm Gran Pct Auto 1.3 % (0.0-0.4); Lymphocytes Absolute Auto 0.9 X10*3/uL (1.2-4.9); Lymphocytes Percent Auto 12.7 % (20-40); Mean Corpuscular HGB Conc 34.7 g/dl (31.0-35.0); Mean Corpuscular Hemoglobin 29.6 pg (27.0-33.0); Mean Corpuscular Volume 85.2 fL (80.0-98.0); Mean Platelet Volume 11.3 fL (9.4-12.3); Monocytes Absolute Auto 0.5 X10*3/uL (0.1-1.2); Monocytes Percent Auto 7.5 % (2-11); Neutrophils Percent Auto 71.6 % (45-73); Red Blood Count 3.38 X10*6/uL (4.20-5.50); Red Cell Distribution Width 15.7 % (11.0-16.0); White Blood Count 6.9 X10*3/uL (4.8-10.8)
[2025-02-12 16:19] LABS: Platelet Count 40 X10*3/uL (160-400)
[2025-02-12 16:33] LABS: Alanine Aminotransferase 36 U/L (0-31); Albumin Level 2.9 g/dL (3.5-5.0); Alkaline Phosphatase 219 U/L (39-117); Anion Gap 9 (12-20); Aspartate Amino Transferase 41 U/L (5-31); Blood Urea Nitrogen 29 mg/dL (9-16); Calcium 8.6 mg/dL (8.4-10.2); Carbon Dioxide 20 mmol/L (22-29); Chloride 104 mmol/L (96-108); Estimated Glomerular Filt Rate 49; Glucose Random 307 mg/dL (60-115); Potassium 4.8 mmol/L (3.3-5.1); Sodium 128 mmol/L (135-145); Total Protein 6.8 g/dL (6.5-8.0)
== END 2025-02-12 14:57 | disposition home or self-care (01) ==
LOC: HO.HHCL 14:56
PROVIDERS: Visit Provider Registered Nurse
DX: K74.60 Unspecified cirrhosis of liver (principal); R18.8 Other ascites
CPT/HCPCS: 36415; 80053; 85025

== ENCOUNTER → 2025-04-13 22:41 | Outpatient (BNV) | payer MEDICAID, SELFPAY | PROVIDERS: Emergency Provider Emergency Medicine; Visit Provider Radiology Neuroradiology | DX: R07.89 Other chest pain (principal) | CPT/HCPCS: 71045 ==

== ENCOUNTER 2025-04-13 23:18 | Emergency (ER) | payer MEDICAID, SELFPAY ==
--- NOTE | 2025-04-13 | ECG_ITS ---
Test Reason : CHEST PAIN Blood Pressure : */* mmHG Vent. Rate : 85 BPM Atrial Rate : 85 BPM P-R Int : 140 ms QRS Dur : 116 ms QT Int : 420 ms P-R-T Axes : 42 25 21 degrees QTcB Int : 499 ms Normal sinus rhythm Incomplete right bundle branch block Prolonged QT Abnormal ECG When compared with ECG of 25-Oct-2012 00:45, Right bundle branch block Present Referred By: Generic ED Physician Electronically Signed By: SCOOBY ANDERS
--- NOTE | ~2025-04-13 | XR_ITS ---
CLINICAL HISTORY: chest pain 1 view chest x-ray Comparison: None provided Findings: Low lung volumes with mild bibasilar atelectasis/pneumonitis and mild elevation left hemidiaphragm. Mild cardiomegaly accentuated by AP technique. No pneumothorax or pleural effusion with partial obscuration of the lung bases. Degenerative changes include imaged shoulders and imaged AC joints with mild widening of the AC joints. IMPRESSION: mild bibasilar atelectasis/pneumonitis This document has been electronically signed by: Tyler Sanford MD on 04/14/2025 00:20:35
[2025-04-13 23:25] VITALS: BP 114/72; BP 126/51; PULSE 87; PULSE 88; RESP 24; TEMP 36.9; O2SAT 99; BMI 32.3
[2025-04-14 00:12] LABS: MANUAL DIFF FLAG NO
[2025-04-14 00:16] LABS: Basophils Percent Auto 0.7 % (0-2); Eosinophils Absolute Auto 0.2 X10*3/uL (0.0-0.4); Eosinophils Percent Auto 5.1 % (0-4); Hematocrit 25.3 % (37.0-47.0); Hemoglobin 8.9 g/dl (12.0-16.0); Imm Gran Abs Auto 0.02 X10*3/uL (0.00-0.03); Imm Gran Pct Auto 0.7 % (0.0-0.4); Lymphocytes Absolute Auto 0.3 X10*3/uL (1.2-4.9); Lymphocytes Percent Auto 9.2 % (20-40); Mean Corpuscular HGB Conc 35.2 g/dl (31.0-35.0); Mean Corpuscular Hemoglobin 31.4 pg (27.0-33.0); Mean Corpuscular Volume 89.4 fL (80.0-98.0); Monocytes Absolute Auto 0.3 X10*3/uL (0.1-1.2); Monocytes Percent Auto 9.6 % (2-11); Neutrophils Absolute Auto 2.2 x10*3/uL (2.0-8.3); Neutrophils Percent Auto 74.7 % (45-73); Red Blood Count 2.83 X10*6/uL (4.20-5.50); Red Cell Distribution Width 14.6 % (11.0-16.0); White Blood Count 2.9 X10*3/uL (4.8-10.8)
[2025-04-14 00:21] LABS: Ammonia 47 umol/L (13-55)
[2025-04-14 00:29] LABS: Alanine Aminotransferase 53 U/L (0-31); Albumin Level 3.1 g/dL (3.5-5.0); Alkaline Phosphatase 222 U/L (39-117); Anion Gap 11 (12-20); Aspartate Amino Transferase 73 U/L (5-31); Bilirubin Total 0.8 mg/dL (0.0-1.0); Blood Urea Nitrogen 31 mg/dL (9-16); Calcium 8.2 mg/dL (8.4-10.2); Carbon Dioxide 20 mmol/L (22-29); Chloride 107 mmol/L (96-108); Creatinine Clr Calc Pharmacy 55.8; Estimated Glomerular Filt Rate 51; Glucose Random 346 mg/dL (60-115); Potassium 4.3 mmol/L (3.3-5.1); Sodium 134 mmol/L (135-145); Total Protein 6.4 g/dL (6.5-8.0)
[2025-04-14 00:40] LABS: Troponin-I High Sensitivity < 2.7 ng/L (<3.5-17.0)
[2025-04-14 00:49] LABS: Platelet Count 19 X10*3/uL (160-400)
--- NOTE | 2025-04-14 01:43 | ED.CHESTPAIN ---
HPI - Chest Pain General Chief Complaint: Chest Pain Stated Complaint: SNF CPx1 day Time Seen by Provider: 04/14/25 00:21 History of Present Illness ED Provider: lennie HPI narrative: 64 F SNF with chest pain. QURESHI/Cirrhosis/portal HTN the patient is a poor historian herself. She tells me she has however daily chest pain and today was no significant difference from regular. Her pain was left side and central without radiation. To me she denies vomiting. Triage note notes that she reported bloating and abdominal pain. The patient does have chronic ascites and endorses fullness but no significant difference or severe pain in the abdomen. She denies fever, chills or recent instrumentation or paracentesis. Related Data Home Medications ?Medication ?Instructions ?Recorded ?Confirmed benztropine 0.5 mg tablet 0.5 mg PO BID 08/17/20 11/27/24 haloperidol 5 mg tablet 5 mg PO BEDTIME 08/17/20 11/27/24 insulin lispro 100 unit/mL See Protocol subcut TID 08/17/20 11/27/24 subcutaneous pen (Humalog KwikPen (U-100) Insulin) flash glucose sensor (FreeStyle #1 ea 05/01/23 11/27/24 Gurpreet 2 Sensor kit) insulin degludec 200 unit/mL (3 56 unit subcut QPM 05/01/23 11/27/24 mL) subcutaneous pen (Tresiba FlexTouch U-200 insulin) blood-glucose meter (FreeStyle #1 ea 06/17/24 11/27/24 Gallina Lite kit) Previous Rx's ?Medication ?Instructions ?Recorded blood pressure monitor (Blood #1 ea 10/29/22 Pressure Kit) furosemide 40 mg tablet 60 mg (1.5 x 40 mg) PO DAILY 90 11/27/24 days #135 tabs lactulose 10 gram/15 mL (15 mL) 20 g (30 mL) PO TID 90 days #8,100 11/27/24 oral solution mL rifaximin 550 mg tablet 550 mg PO BID 90 days #180 tabs 11/27/24 spironolactone 100 mg tablet 150 mg (1.5 x 100 mg) PO DAILY 90 11/27/24 days #135 tabs Allergies Allergy/AdvReac Type Severity Reaction Status Date / Time Penicillins Allergy Unknown HIVES Verified 04/13/25 23:32 PMFSH Past Medical History Medical History Esophageal varices determined by endoscopy Cirrhosis of liver with ascites Parkinson disease Hypertension Diabetes Surgical History Hx of esophagogastroduodenoscopy Hx of colonoscopy Family History Family History Father Colon cancer Mother Diabetes Colon polyps Daughter Lupus Social History Social History Household Members: Children Housing: House Housing Other:: [employer] Are you a primary field care manager to a significant other at home: No Do you presently have visiting nurse or other home services: No Alcohol intake: former Patient Tobacco Use Status: Former Tobacco user service: No Current occupational status: unemployed and disabled Physical Exam Vital Signs: Vital Signs: Last Vital Signs Temp 97.9 F 04/14/25 06:56 Pulse 81 04/14/25 06:56 Resp 25 H 04/14/25 06:56 BP 134/59 L 04/14/25 06:56 Pulse Ox 99 04/14/25 06:56 O2 Del Method Room Air 04/14/25 06:56 BMI result Body Mass Index 32.3 Const: Other: EXAM: Gen: Alert, awake, well appearing, well hydrated. Head: Atraumatic Eyes: Anicteric, Normal conjunctiva. ENT: Moist mucosa, no pallor. ? Neck: Supple. Skin: ?No observable rash or bruising on exposed or examined skin Respiratory: Breathing comfortably, No distress.Clear to auscultation bilaterally, symmetric chest expansion, No wheeze, rales, ronchi. Cardiovascular: Regular rate and rhythm. No murmurs or rub. Well perfused periphery, warm extremities. No edema. ? Abdominal: No FOCAL TENDERNESS, diffuse distention with fluid wave consistent with known ascites. No bruising or erythema. Soft, no objective distension. No palpable masses or obvious organomegaly. ?No guarding, no rebound tenderness or other peritoneal findings. : No flank tenderness. Neuro: Alert. Gross movement of all extremities intact. ? Psych: Calm. Cooperative. MSK: No grossly visible deformity. Vital signs: See flowsheet Medical Decision Making Medical Decision Making MDM Narrative: 64-year-old female with QURESHI cirrhosis pancytopenia. Atypical and acute on chronic chest pain. Chest pain-free in the ED. nonischemic ECG with a right bundle-branch block. Troponin x2 negative myocardial infarction excluded. Character not suggestive of dissection or PE though that was considered. Acute on chronic pancytopenia slightly lower than normal. Platelets 19. No active bleeding no petechia no gum bleeding. I have written clear instructions for close follow up with GI as an outpatient and looking out for signs of bleeding easy bruising or rash to return the patient back. Triage note reports abdominal pain but to me the patient reports that she has chronic abdominal distention from the ascites that is relatively unchanged. She has no fever, she is not tender in the abdomen and I doubt acute S BP. Differential Diagnosis ACS, acute on chronic functional chest pain, musculoskeletal pain, GERD, Lab Data 04/14/25 00:07 04/14/25 00:07 Labs: Lab Results 04/14/25 04/14/25 Range/Units 00:07 02:30 WBC 2.9 L (4.8-10.8) X10*3/uL RBC 2.83 L (4.20-5.50) X10*6/uL Hgb 8.9 L (12.0-16.0) g/dl Hct 25.3 L (37.0-47.0) % MCV 89.4 (80.0-98.0) fL MCH 31.4 (27.0-33.0) pg MCHC 35.2 H (31.0-35.0) g/dl RDW 14.6 (11.0-16.0) % Plt Count 19 L* D (160-400) X10*3/uL MPV 11.0 (9.4-12.3) fL Immature Gran % (Auto) 0.7 H (0.0-0.4) % Neut % (Auto) 74.7 H (45-73) % Lymph % (Auto) 9.2 L (20-40) % [place] % (Auto) 9.6 (2-11) % Eos % (Auto) 5.1 H (0-4) % Baso % (Auto) 0.7 (0-2) % Lymph # (Auto) 0.3 L (1.2-4.9) X10*3/uL [place] # (Auto) 0.3 (0.1-1.2) X10*3/uL Eos # (Auto) 0.2 (0.0-0.4) X10*3/uL Baso # (Auto) 0.0 (0.0-0.2) X10*3/uL Abs Immat Gran (auto) 0.02 (0.00-0.03) X10*3/uL Absolute Neuts (auto) 2.2 (2.0-8.3) x10*3/uL Absolute Nucleated RBC 0.000 (0.0-0.012) X10*3/uL Nucleated RBC % (auto) 0.0 (0.0-0.2) /100WBC Sodium 134 L (135-145) mmol/L Potassium 4.3 (3.3-5.1) mmol/L Chloride 107 (96-108) mmol/L Carbon Dioxide 20 L (22-29) mmol/L Anion Gap 11 L (12-20) BUN 31 H (9-16) mg/dL Creatinine 1.09 (0.5-1.4) mg/dL Estim Creat Clear Calc 55.8 Estimated GFR 51 Random Glucose 346 H (60-115) mg/dL Calcium 8.2 L (8.4-10.2) mg/dL Total Bilirubin 0.8 (0.0-1.0) mg/dL AST 73 H (5-31) U/L ALT 53 H (0-31) U/L Alkaline Phosphatase 222 H (39-117) U/L Ammonia 47 (13-55) umol/L Troponin I High Sens < 2.7 3.1 (<3.5-17.0) ng/L Total Protein 6.4 L (6.5-8.0) g/dL Albumin 3.1 L (3.5-5.0) g/dL Independent Interpretation I performed an independent interpretation of an: EKG Interpretation: Sinus rhythm rate 85 QTC 499. Incomplete right bundle-branch block. No acute ischemic changes Discharge Plan Discharge Clinical Impression: Cirrhosis Patient Disposition: Home, Self-Care Instructions: Cirrhosis of the Liver (ED) Additional Instructions: DISCHARGE DIAGNOSES: Chest pain chronic chest pain. Myocardial infarction excluded HISTORY OF PRESENTATION: ?Acute on chronic chest pain earlier. Pain-free in the emergency department EMERGENCY DEPARTMENT COURSE,TESTS, TREATMENTS: While in the ED today you had no pain. You had myocardial infarction or heart attack excluded with blood tests. EKG did not show any acute ischemic changes. Your lab work did however show worsening of your chronic pancytopenia or low red, white blood cells and platelets You did not have any active bleeding or other indication for acute hospitalization but you will need to see your GI doctor as soon as possible. If you develop any bleeding of the gums when brushing her teeth easy bruising rash on your body bleeding in the stool return immediately back to the emergency department. Notably the platelet level was 19 DISCHARGE MEDICATIONS: ?[We have made no changes to your regular medication regimen] FOLLOW-UP: ?Call your primary or general physician soon as possible to discuss your symptoms, your ED visit and to discuss follow up plans GI follow up urgently in the next 3-5 days INSTRUCTIONS ?& RETURN PRECAUTIONS: If any symptoms change first call your primary physician, if it is after-hours your primary doctors office should have a provider internet salesperson you can speak with. If the symptoms are severe or very concerning to you then call 911 or return to the ED. Ld Guevara MD Emergency Physician [facility] Prescriptions: No Action benztropine 0.5 mg Tablet 0.5 mg PO BID haloperidol 5 mg Tablet 5 mg PO BEDTIME insulin lispro [Humalog KwikPen Insulin] 100 unit/mL Insulin Pen See Protocol SUBCUT TID Protocol: Insulin Correction Scale Less than or equal to 110 ---- Give (units): 0 111 to 150 Give (units): 0 151 to 200 Give (units): 2 201 to 250 Give (units): 4 251 to 300 Give (units): 6 301 to 350 Give (units): 8 Greater than 350 Give (units): 10 Call MD if Blood Glucose > : 350 Patient Comments: pt has MD sliding scale Rx Instructions: sliding scale (DME) blood pressure monitor [Blood Pressure Kit] Kit See Rx Instructions .Route Qty: 1 0RF Rx Instructions: As directed lactulose 10 gram/15 mL (15 mL) solution 20 g PO TID 90 Days Qty: 8100 0RF rifaximin 550 mg tablet 550 mg PO BID 90 Days Qty: 180 0RF furosemide 40 mg tablet 60 mg PO DAILY 90 Days Qty: 135 0RF spironolactone 100 mg tablet 150 mg PO DAILY 90 Days Qty: 135 0RF insulin degludec [Tresiba FlexTouch U-200] 200 unit/mL (3 mL) insulin pen 56 unit subcut QPM (DME) FreeStyle Gurpreet 2 Sensor Kit See Rx Instructions .ROUTE Q2W Qty: 1 Rx Instructions: As directed (DME) blood-glucose meter [FreeStyle Gallina Lite] Kit See Rx Instructions .ROUTE QID Qty: 1 Rx Instructions: As directed Interventions: ED Discharge Assessment Last Done: 04/14/25 06:56 Discharge Date/Time: 04/14/25 06:57 Print Language: [place] Citizen
[2025-04-14 02:30] VITALS: BP 132/43; PULSE 80; RESP 24; TEMP 36.8; O2SAT 99
[2025-04-14 03:01] LABS: Troponin-I High Sensitivity 3.1 ng/L (<3.5-17.0)
[2025-04-14 05:28] VITALS: BP 134/59; PULSE 81; RESP 25; TEMP 36.6; O2SAT 99
--- NOTE | 2025-04-14 06:10 | PC.NURSE ---
t/w called [facility] 3 times at [phone], in attempt to give report. No answer and unable to speak with any staff. Pt awaiting transport, clean and dry, clothes on and IV removed. Pt dressed and awaiting transport back to facility. Pt given crackers and cheese with a drink.
[2025-04-14 06:56] VITALS: BP 134/59; PULSE 81; RESP 25; TEMP 36.6; O2SAT 99
== END 2025-04-14 06:57 | disposition home or self-care (01) ==
PROVIDERS: Emergency Provider Emergency Medicine
DX: K74.60 Unspecified cirrhosis of liver (principal); R07.89 Other chest pain; I10 Essential (primary) hypertension; R18.8 Other ascites; Z79.899 Other long term (current) drug therapy; Z87.891 Personal history of nicotine dependence
CPT/HCPCS: 36415; 71045; 80053; 82140; 84484; 85025; 93005; 99283; 99285

== ENCOUNTER → 2025-04-13 23:47 | Outpatient (BNV) | payer MEDICAID, SELFPAY | PROVIDERS: Emergency Provider Emergency Medicine; Visit Provider Internal Medicine | DX: I45.10 Unspecified right bundle-branch block (principal) | CPT/HCPCS: 93010 ==

== ENCOUNTER 2025-05-14 09:01 | Day surgery (SDC) | payer MEDICAID, SELFPAY ==
--- OUTSIDE RECORDS SUMMARY | 2025-05-03 09:23 | XMS_ITS | Clinical Summary ---
Author Organization [facility] Address [address] [place] [address] Phone Care Team Providers Care Operations Vocational Instructor Name Role Phone Ysah Arredondo NP Primary Care Provider [phone] Allergies Active Allergy Reactions Criticality Noted Date [...] liver (CMS/HCC V24, CMS/HCC V28) Overview (10/12/2024): Decompensated QURESHI cirrhosis MELD-Na: 16. Followed by [facility]. Paracentesis q. 2 weeks. EGD 2019 with grade II varices. Colonoscopy 2019 with polyps removed. Tubular adenoma present. Lactulose 2-3x/day for hepatic encephalopathy with goal 2-3 BM's per day. On propranolol 30mg b.I.d for varices. Lasix 100mg daily and sironolactione 150mg for ascites. Thrombocytopenia (CMS/HCC V24) 04/21/2018 Surgical History Surgery Date Site/Laterality Comments OTHER SURGICAL HISTORY N/A PROCEDURE: OK ABDOM PARACENTESIS DX/THER W/IMAGING GUIDANCE Medical History [...] thigh Staphylococcus aureus bacter emia with sepsis (CMS/HCC V24, CMS/HCC V28) DX:Staphylococcus au reus bacteremia with sepsis (HCC) OLIVIA (acute kidney injury) (CMS/HCC V24) DX:OLIVIA (acute kidney injury) (HCC) Hypomagnesemia DX:Hypomagnesemi a Bilateral pleural effusion DX:Bi lateral pleural effusion Spontaneous bacterial perito nitis (CMS/HCC V24, CMS/HCC V28) DX:Spontaneous bacterial pe ritonitis (HCC) Acute hypoxic respiratory fa ilure (CMS/HCC V24, CMS/HCC V28) DX:Acute hypoxic respirator y failure (HCC) Sepsis with acute hypoxic re spiratory failure without septic shock (CMS/HCC V24, CMS/HCC V28) DX:Sepsis with acute hypoxic respiratory failure [...] 95 11/24/2024 6:43 PM EST Temperature 36.9 C (98.4 F) 11/24/2024 6:43 PM EST Respiratory Rate 18 11/24/2024 6:43 PM EST [...] (2 of 2) 12/13/2022 10/18/2022 COVID-19 Vaccine (1 - season) 2024 Diabetes: Annual Urine Albumin-Creatinine Ratio (uACR) 10/12/2024 Diabetes: Blood Sugar Control Test (HGBA1C) 02/28/2025 08/31/2024, 06/12/2024 Influenza Vaccine (#1) 2025 , 09/02/2023, 10/05/2022, Additional history exists Depression Screening 11/18/2025 11/18/2024 Diabetes: Annual GFR [...] Vaccine: 50+ Years Completed 12/03/2022, 07/29/2013, 02/17/2007 HIB Vaccines Aged Out No longer eligi [...] Procedure Name Priority Date/Time Associated Diagnosis Comments COMPREHENSIVE METABOLIC PANEL STAT 11/24/2024 8:01 PM EST LIPID PANEL WITH REFLEX TO DIRECT LDL Routine 10/13/2024 5:24 AM EST from Last 3 Months or Most Recently Relevant to Health Maintenance Results * (ABNORMAL) Comprehensive metabolic panel (11/24/2024 8:01 PM EST) Sodium 132(L) 133 - 145 mmol/L LAB CHEMISTRY METHOD 11/24/2024 8:52 PM [facility] Potassium 4.0 3.5 - 5.5 mmol/L LAB CHEMISTRY METHOD 11/24/2024 8:52 PM [facility] Chloride 103 96 - 110 mmol/L LAB CHEMISTRY METHOD 11/24/2024 8:52 PM [facility] CO2 25 21 - 32 mmol/L LAB CHEMISTRY METHOD 11/24/2024 8:52 PM [facility] Anion Gap 4 3 - 11 LAB CHEMISTRY METHOD 11/24/2024 8:52 PM [facility] Glucose 353(H) 70 - 100 mg/dL LAB CHEMISTRY METHOD 11/24/2024 8:52 PM [facility] BUN 23 5 - 25 mg/dL LAB CHEMISTRY METHOD 11/24/2024 8:52 PM [facility] Creatinine 0.93 0.50 - 1.10 mg/dL LAB CHEMISTRY METHOD 11/24/2024 8:52 PM [facility] eGFR 69 >=60 mL/min/1. 73m2 LAB CHEMISTRY METHOD 11/24/2024 8:52 PM [facility] Comment:Calculation based on the Chronic Kidney Disease Epidemiology Collaboration (CKD-EPI) equation refit without adjustment for race. BUN/Creatinine Ratio 24.7 LAB CHEMISTRY METHOD 11/24/2024 8:52 PM [facility] Calcium 8.3(L) 8.5 - 10.5 mg/dL LAB CHEMISTRY METHOD 11/24/2024 8:52 PM [facility] AST (SGOT) 29 10 - 42 unit/L LAB CHEMISTRY METHOD 11/24/2024 8:52 PM [facility] ALT (SGPT) 29 10 - 60 unit/L LAB CHEMISTRY METHOD 11/24/2024 8:52 PM [facility] Alkaline Phosphatase 188(H) 42 - 121 unit/L LAB CHEMISTRY METHOD 11/24/2024 8:52 PM [facility] Total Protein 6.6 6.0 - 8.0 g/dL LAB CHEMISTRY METHOD 11/24/2024 8:52 PM [facility] Albumin 2.4(L) 3.2 - 5.0 g/dL LAB CHEMISTRY METHOD 11/24/2024 8:52 PM [facility] Total Bilirubin 0.9 0.0 - 1.4 mg/dL LAB CHEMISTRY METHOD 11/24/2024 8:52 PM [facility] Blood Venous blood specimen / Unknown Venipuncture / Unknown 11/24/2024 8:01 PM EST 11/24/2024 8:11 PM EST us Rigo Genao MD LAB BLOOD ORDERABLES Final Result [facility] [address] [place] [address], * Lipid panel with reflex to direct LDL (10/13/2024 5:24 AM EST) Cholesterol 125 0 - 200 mg/dL LAB CHEMISTRY METHOD 10/13/2024 6:43 AM EST [facility] Triglycerides 66 0 - 150 mg/dL LAB CHEMISTRY METHOD 10/13/2024 6:43 AM [facility] HDL 48 >=40 mg/dL LAB CHEMISTRY METHOD 10/13/2024 6:43 AM [facility] LDL Calculated 64 0 - 100 mg/dL LAB CHEMISTRY METHOD 10/13/2024 6:43 AM EST [facility] VLDL Cholesterol Lkue 13.2 mg/dL LAB CHEMISTRY METHOD 10/13/2024 6:43 AM [facility] Non HDL Chol. (LDL+VLDL) 77 <145 mg/dL LAB CHEMISTRY METHOD 10/13/2024 6:43 AM [facility] Chol/HDL Ratio 2.6 0.0 - 4.4 LAB CHEMISTRY METHOD 10/13/2024 6:43 AM [facility] Blood Venous blood specimen / Unknown Venipuncture / Unknown 10/13/2024 5:24 AM EST 10/13/2024 6:07 AM EST Salena RODRIGUEZ LAB BLOOD ORDERABLES Fi nal Result [facility] [address] [place] [address], from Last 3 Months or Most Recently Relevant to Health Maintenance Insurance [place]ICA[place] Advance Directives Documents on File Type Date Recorded Patient Doctor Of Medicine Expl anation Health Care Decision (hx) 12/28/2023 [...] DIRECTIVE Health Care Decision (hx) 12/11/2020 AD RBANTLEY DIRECTIVE Health Care Decision (hx) 12/11/2020 AD [...] currently active code status orders. Care Teams Operations Vocational Instructor Relationship Specialty Start Date End Date Yash Arredondo NP [address] [place] [address] PCP - General 09/15/13
--- OUTSIDE RECORDS SUMMARY | 2025-05-03 09:23 | XMS_ITS | Clinical Summary ---
Author Organization [facility] Address [address] [facility] [address] [place] [address] Phone Care Team Providers Care Dryer Feeder Name Role Phone Unavailable Primary Care Provider [...] morning. 3 Active Insulin Pen Needle (Pen [place] 01/03 ) 31G X 5 MM misc [...] hyponatremia 03/10/2023 Abnormal gait 03/10/2023 Overview (03/14/2023): Referred to PT 11/2022 for gait assistance [...] Visit [facility] [address] [place] [address] Rigo Freed MD [address] [facility] [address] [place] [address] Health Maintenance Due Date Last [...] Visual Foot Exam 01/21/2023 Diabetes: Hemoglobin A1C 05/14/202502/12/ 025, 08/31/2024, 06/12/2024, Additional history exists Influenza Vaccine (#1) 2025 4, 09/02/2023, 10/05/2022, Additional history exists Pneumococcal Vaccine: 50+ Years Completed 12/03/2022, 07/29/2013, 02/17/2007 Pneumococcal Vaccine: Peds ( 0 to 5 Years) and At-Risk Patients (6 to 49 Years) Discontinued 12/03/2022, 07/29/2013, 02/17/2007 [place]
--- OUTSIDE RECORDS SUMMARY | 2025-05-03 09:23 | XMS_ITS | Encounter Summary ---
Author Organization [employer] Address [address] [place] [address] Care Team Providers Care Rn Occupational Name Role Phone Ana Davis ZIPPER [employer]ER Primary Care Provider [phone] Andree Ulloa PharmD Unavailable [phone] Reason for Referral * Consultation (Routine) - Authorized Specialty Diagnoses / Procedures Referred By Contac t Referred To Contact Pharmacy Diagnoses Type 2 diabetes mellitus without complication, with long-term current use of insulin (CMS/HCC) Catalina Mendez MD [address] [place] [address] Phone: tel: fax: Referral ID Status Reason Start Date Expiration Date Visits Requested Visits Authorized [id number] Authorized Consult and Treat 02/23/2025 02/23/2026 6 6 Encounter Details Date Type Department Care Team (Late st Contact Info) Description 02/23/2025 Orders Only [facility] [address] [place] [address] Catalina Mendez MD [address] [place], [place] [phone] Type 2 diabetes mellitus without complication, with long-term current use of insulin (CMS/HCC) (Primary Dx) Social History Tobacco Use Types [...] as of this encounter Plan of Treatment Scheduled Referrals Name Type Priority Associated Diagnoses Orde r Schedule Referral to Pharmacy [facility] Outpatient Referral Routine Type 2 diabetes mellitus without complication, with long-term current use of insulin ([facility]) Ordered: 02/23/2025 documented as of this encounter Goals Goal [...] as of this encounter Visit Diagnoses Diagnosis Type 2 diabetes mellitus without complication, with long-term current use of insulin ([facility])- Primary documented in this encounter Additional Health Concerns Assessment Noted Time PHQ-9 Depression Total Score: 10 025 1:44 PM EST documented as of this encounter Care Teams Rn Occupational Relationship Specialty Start Date End Date Ana Davis FNP [address] [place] [address] PCP - General Family Medicine 04/05/22 Andree Ulloa PharmD [address] [place] [address] Pharmacist Internal Medicine 05/09/23 Flavia Segundo Manufacturing TechnicianProgram Director [employer] 10/10/23 Gabrielle Fitch Manufacturing TechnicianProgram Director [employer] 11/05/24 [employer] 02/06/25 documented as of this encounter
--- NOTE | ~2025-05-14 | US_ITS ---
EXAMINATION: US GUIDED PARACENTESIS CLINICAL INFORMATION: Unspecified cirrhosis of liver COMPARISON: None available. TECHNIQUE: Following explaining ultrasound-guided guided procedure, benefits and risk to patient's daughter via phone a phone consent was obtained in presence of nuclear medicine pet ct technologist. Patient was placed on ultrasound stretcher and preliminary ultrasound imaging was obtained through 4 quadrants. An optimal site was selected in the right lower quadrant with maximum free fluid in the area was marked on the skin with a marker. The marked site was cleaned and draped with 2% chlorhexidine solution. 1% lidocaine was injected puncture site. Through a small skin incision a 4 Slovak short Yueh catheter was advanced from the skin into the peritoneal cavity. After observing fluid return, stylet was withdrawn and catheter connected to vacuum bottle via connecting cannula. Obtaining all fluid and observing normal fluid return, catheter was withdrawn and complete hemostasis achieved at puncture site. Sterile dressing applied post procedure. Patient tolerated procedure extremely well. FINDINGS: On plain the ultrasound imaging there is moderate free fluid. Approximately 4.1 L of clear yellowish fluid was drained from the right lower quadrant. None of this fluid was sent to lab US/US paracentesis abd w/image IMPRESSION: Successful ultrasound-guided therapeutic paracentesis performed without immediate complications. Electronically signed by: Anderson Paz MD 05/14/2025 12:32 PM EDT
[2025-05-14 09:20] VITALS: BMI 35.7
[2025-05-14 09:21] VITALS: BMI 35.7
[2025-05-14 09:36] LABS: Glucose, Whole Blood 228 mg/dL (60-115)
[2025-05-14 09:38] LABS: MANUAL DIFF FLAG NO
[2025-05-14 09:41] VITALS: BP 118/49; PULSE 87; RESP 18; TEMP 36.7; O2SAT 100
[2025-05-14 09:41] LABS: Hematocrit 23.4 % (37.0-47.0); Hemoglobin 8.0 g/dl (12.0-16.0); Imm Gran Abs Auto 0.03 X10*3/uL (0.00-0.03); Imm Gran Pct Auto 0.9 % (0.0-0.4); Lymphocytes Absolute Auto 0.4 X10*3/uL (1.2-4.9); Mean Corpuscular HGB Conc 34.2 g/dl (31.0-35.0); Mean Corpuscular Hemoglobin 31.4 pg (27.0-33.0); Mean Corpuscular Volume 91.8 fL (80.0-98.0); NRBC Abs Auto 0.000 X10*3/uL (0.0-0.012); NRBC Pct Auto 0.0 /100WBC (0.0-0.2); Platelet Count 22 X10*3/uL (160-400); Red Blood Count 2.55 X10*6/uL (4.20-5.50); White Blood Count 3.2 X10*3/uL (4.8-10.8)
[2025-05-14 09:46] LABS: INTERNATIONAL NORM RATIO 1.3 (0.9-1.1); Prothrombin Time 15.2 SEC (10.9-12.4)
[2025-05-14 09:49] LABS: Partial Thromboplastin Time 30.3 SEC (26.0-36.8)
[2025-05-14 09:55] LABS: Anion Gap 10 (12-20); Blood Urea Nitrogen 27 mg/dL (9-16); Calcium 7.9 mg/dL (8.4-10.2); Carbon Dioxide 20 mmol/L (22-29); Chloride 114 mmol/L (96-108); Creatinine Clr Calc Pharmacy 55.6; Estimated Glomerular Filt Rate 52; Potassium 4.4 mmol/L (3.3-5.1); Sodium 140 mmol/L (135-145)
--- NOTE | 2025-05-14 09:57 | PC.NURSE ---
I spoke with Jazz JUÁREZ from [facility] at [place] and recieved report on the patient. We reviewed the patient's medical history which included but was not limited to medications, NPO status, code status (full code), and health care proxy. Jazz JUÁREZ states Catherine has an updated health care proxy by the name of Karuna Perez ([phone]).
[2025-05-14 11:40] VITALS: BP 128/60; PULSE 81; RESP 16; TEMP 36.2; O2SAT 98
[2025-05-14 12:10] VITALS: BP 125/57; PULSE 80; RESP 16; O2SAT 100
[2025-05-14] MEDS: Lidocaine HCl 1 % MPF 5 ML VIAL SUBCUT (12:10)
[2025-05-14 12:40] VITALS: BP 138/54; PULSE 79; RESP 16; O2SAT 97
[2025-05-14 13:10] VITALS: BP 118/49; PULSE 78; RESP 16; TEMP 36.3; O2SAT 99
[2025-05-14 13:29] VITALS: BP 119/53; PULSE 79; RESP 20; TEMP 36.6; O2SAT 100
== END 2025-05-14 13:35 | disposition home or self-care (01) ==
PROVIDERS: Radiology Diagnostic Radiology; PCP Registered Nurse; Visit Provider Internal Medicine
DX: R18.8 Other ascites (principal); K74.60 Unspecified cirrhosis of liver; E11.9 Type 2 diabetes mellitus without complications; I10 Essential (primary) hypertension; G20.A1 Parkinson's disease without dyskinesia, without mention of fluctuations; Z87.891 Personal history of nicotine dependence; Z86.0101 Personal history of adenomatous and serrated colon polyps; Z79.899 Other long term (current) drug therapy
CPT/HCPCS: 36415; 49083; 80048; 82947; 85025; 85610; 85730; J2003

== ENCOUNTER → 2025-05-14 10:20 | Outpatient (BNV) | payer MEDICAID, SELFPAY | PROVIDERS: PCP Registered Nurse; Visit Provider Radiology Diagnostic Radiology | DX: R18.8 Other ascites (principal) | CPT/HCPCS: 49083 ==

== ENCOUNTER 2025-05-28 09:08 | Day surgery (SDC) | payer MEDICAID, SELFPAY ==
--- OUTSIDE RECORDS SUMMARY | 2025-05-19 14:59 | XMS_ITS | Clinical Summary ---
Author Organization [facility] Address [address] [place] [address] Phone Care Team Providers Care Retention Specialist Name Role Phone Yash Arredondo NP Primary Care Provider [phone] Allergies Active Allergy Reactions Criticality Noted Date [...] Decompensated QURESHI cirrhosis MELD-Na: 16. Followed by [facility]. Paracentesis q. 2 weeks. EGD 2019 with grade II varices. Colonoscopy 2019 with polyps removed. Tubular adenoma present. Lactulose 2-3x/day for hepatic encephalopathy with goal 2-3 BM's per day. On propranolol 30mg b.I.d for varices. Lasix 100mg daily and sironolactione 150mg for ascites. Thrombocytopenia (CMS/HCC V24) 04/21/2018 Surgical History Surgery Date Site/Laterality Comments OTHER SURGICAL HISTORY N/A PROCEDURE: MT ABDOM PARACENTESIS DX/THER W/IMAGING GUIDANCE Medical History [...] Diabetes: Annual Urine Albumin-Creatinine Ratio (uACR) 10/12/2024 Depression Screening 10/21/2024 Diabetes: Blood Sugar Control Test (HGBA1C) 02/28/2025 08/31/2024, 06/12/2024 Influenza Vaccine (#1) 2025 , 09/02/2023, 10/05/2022, Additional history exists Diabetes: Annual GFR (Glomerular Filtration Rate) 11/24/2025 [...] mmol/L LAB CHEMISTRY METHOD 11/24/2024 8:52 PM [facility] Potassium 4.0 3.5 - 5.5 mmol/L LAB CHEMISTRY METHOD 11/24/2024 8:52 PM [facility] Chloride 103 96 - 110 mmol/L LAB CHEMISTRY METHOD 11/24/2024 8:52 PM [facility] CO2 25 21 - 32 mmol/L LAB CHEMISTRY METHOD 11/24/2024 8:52 PM [facility] Anion Gap 4 3 - 11 LAB CHEMISTRY METHOD 11/24/2024 8:52 PM [facility] Glucose 353(H) 70 - 100 mg/dL LAB CHEMISTRY METHOD 11/24/2024 8:52 PM [facility] BUN 23 5 - 25 mg/dL LAB CHEMISTRY METHOD 11/24/2024 8:52 PM [facility] Creatinine 0.93 0.50 - 1.10 mg/dL LAB CHEMISTRY METHOD 11/24/2024 8:52 PM [facility] eGFR 69 >=60 mL/min/1. 73m2 LAB CHEMISTRY METHOD 11/24/2024 8:52 PM [facility] Comment:Calculation based on the Chronic Kidney Disease Epidemiology Collaboration (CKD-EPI) equation refit without adjustment for race. BUN/Creatinine Ratio 24.7 LAB CHEMISTRY METHOD 11/24/2024 8:52 PM [facility] Calcium 8.3(L) 8.5 - 10.5 mg/dL LAB CHEMISTRY METHOD 11/24/2024 8:52 PM [facility] AST (SGOT) 29 10 - 42 unit/L LAB CHEMISTRY METHOD 11/24/2024 8:52 PM [facility] ALT (SGPT) 29 10 - 60 unit/L LAB CHEMISTRY METHOD 11/24/2024 8:52 PM [facility] Alkaline Phosphatase 188(H) 42 - 121 unit/L LAB CHEMISTRY METHOD 11/24/2024 8:52 PM [facility] Total Protein 6.6 6.0 - 8.0 g/dL LAB CHEMISTRY METHOD 11/24/2024 8:52 PM [facility] Albumin 2.4(L) 3.2 - 5.0 g/dL LAB CHEMISTRY METHOD 11/24/2024 8:52 PM [facility] Total Bilirubin 0.9 0.0 - 1.4 mg/dL LAB CHEMISTRY METHOD 11/24/2024 8:52 PM [facility] Blood Venous blood specimen / Unknown Venipuncture / Unknown 11/24/2024 8:01 PM EST 11/24/2024 8:11 PM EST us Rigo Genao MD LAB BLOOD ORDERABLES Final Result [facility] [address] [place] [address], * Lipid panel with reflex to direct LDL (10/13/2024 5:24 AM EST) Cholesterol 125 0 - 200 mg/dL LAB CHEMISTRY METHOD 10/13/2024 6:43 AM EST [facility] Triglycerides 66 0 - 150 mg/dL LAB CHEMISTRY METHOD 10/13/2024 6:43 AM [facility] HDL 48 >=40 mg/dL LAB CHEMISTRY METHOD 10/13/2024 6:43 AM [facility] LDL Calculated 64 0 - 100 mg/dL LAB CHEMISTRY METHOD 10/13/2024 6:43 AM [facility] VLDL Cholesterol Luke 13.2 mg/dL LAB CHEMISTRY METHOD 10/13/2024 6:43 AM [facility] Non HDL Chol. 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 Care Teams Retention Specialist Relationship Specialty Start Date End Date Yash Arredondo NP [address] [place] [address] PCP - General 09/15/13
--- NOTE | 2025-05-26 09:40 | PC.NURSE ---
Addendum entered and electronically signed by Helen Fairchild RN 05/26/25 10:05: Spoke with Tia R CHIEF CRUISER within [facility] where pt [facility]-gone over pre-procedure instructions arrival time 900 and no need to fast. Tia R CHIEF CRUISER will check on transportation and will be calling back to our office. Original Note: Pre-procedure instructions--Spoke with pt's daughter Dinorah--arrival time 930, she will be her ride to and from hospital. Dinorah understood information.
--- NOTE | ~2025-05-28 | US_ITS ---
EXAMINATION: US GUIDED PARACENTESIS CLINICAL INFORMATION: Ascites. COMPARISON: None available. TECHNIQUE: Limited ultrasound imaging was performed of the abdomen. There is minimal fluid in the right upper quadrant and mid quadrant. No fluid is seen in the left abdomen. FINDINGS/ US/US abdomen limited IMPRESSION: There is not enough of fluid seen in abdomen for therapeutic paracentesis. The paracentesis was canceled . Electronically signed by: Anderson Paz MD 05/28/2025 02:14 PM EDT
[2025-05-28 09:34] VITALS: BP 111/49; PULSE 81; RESP 22; TEMP 36.2; O2SAT 100
[2025-05-28 09:41] LABS: Glucose, Whole Blood 231 mg/dL (60-115)
[2025-05-28 09:48] VITALS: BMI 25.7
== END 2025-05-28 10:53 | disposition home or self-care (01) ==
LOC: HO.SSS 09:09
PROVIDERS: Radiology Diagnostic Radiology; PCP Registered Nurse; Visit Provider Nurse Practitioner
DX: R18.8 Other ascites (principal); Z53.8 Procedure and treatment not carried out for other reasons; E11.9 Type 2 diabetes mellitus without complications; N17.9 Acute kidney failure, unspecified; R33.9 Retention of urine, unspecified; M15.9 Polyosteoarthritis, unspecified; Z79.899 Other long term (current) drug therapy
CPT/HCPCS: 49083; 76705; 82947; J2003

== ENCOUNTER → 2025-05-28 09:31 | Outpatient (BNV) | payer MEDICAID, SELFPAY | PROVIDERS: PCP Registered Nurse; Visit Provider Radiology Diagnostic Radiology | DX: R18.8 Other ascites (principal) | CPT/HCPCS: 49083 ==

== ENCOUNTER 2025-06-09 14:38 | Inpatient (IN) | payer MEDICAID, SELFPAY ==
--- NOTE | 2025-06-09 | ECG_ITS ---
Test Reason : ABDOMINAL PAIN Blood Pressure : */* mmHG Vent. Rate : 83 BPM Atrial Rate : 83 BPM P-R Int : 134 ms QRS Dur : 114 ms QT Int : 402 ms P-R-T Axes : 50 39 23 degrees QTcB Int : 472 ms Sinus rhythm with Premature supraventricular complexes Incomplete right bundle branch block Borderline ECG When compared with ECG of 13-Apr-2025 23:47, Premature supraventricular complexes are now Present Referred By: Alcides Arreola Electronically Signed By: GEORGE BEATTY MD
--- NOTE | ~2025-06-09 | XR_ITS ---
CLINICAL HISTORY: tachypnea 1 view chest x-ray. Comparison: 04/13/2025 Findings: There is incomplete inspiration with crowding of blood vessels in both lung bases. Blunting of left and right costophrenic sulci due to incomplete inspiration. Heart size is stable and unchanged. Pulmonary vasculature approaches limits of normal. Mild deviation of the trachea to the patient's right is unchanged in appearance due to aorta elongation and tortuosity. No acute fracture. Impression: No consolidation. Mild right lung base atelectasis. This document has been electronically signed by: Rigo Santos MD on 06/09/2025 18:12:09
--- NOTE | ~2025-06-09 | CT_ITS ---
CLINICAL HISTORY: abd pain, cirrhosis with ascites CT abdomen and pelvis with contrast Comparison: None provided Findings: Right lower lobe area of consolidation which could represent round atelectasis or pneumonia. Atrophic liver with nodular contour consistent with hepatic cirrhosis. Status post cholecystectomy. Moderate perihepatic abdominal and pelvic ascites and diffuse mesenteric fat stranding. Moderate splenomegaly. No bowel obstruction, pneumoperitoneum, or pneumatosis. Moderately distended urinary bladder. No acute fracture. IMPRESSION: Hepatic cirrhosis with moderate abdominal pelvic ascites. Moderate diffuse mesenteric stranding is present. Acute spontaneous peritonitis can not be excluded. Moderately distended urinary bladder. Emptying is suggested. This document has been electronically signed by: Johnny More MD on 06/09/2025 21:05:26
[2025-06-09 15:08] VITALS: BP 150/70; PULSE 86; O2SAT 100
[2025-06-09 15:13] VITALS: BP 121/62; PULSE 84; RESP 18; TEMP 36.6; O2SAT 100
[2025-06-09 15:16] VITALS: BP 121/61; PULSE 82; RESP 22; O2SAT 100; BMI 31.9
[2025-06-09 15:19] LABS: Glucose, Whole Blood 290 mg/dL (60-115)
--- NOTE | 2025-06-09 15:21 | ED.GENADULT ---
HPI - General Adult General Chief complaint: General Medical Stated complaint: bs 398 dizzy, unsteady, snf Time Seen by Provider: 06/09/25 15:20 Source: patient, EMS, RN notes reviewed and old records reviewed Mode of arrival: EMS Limitations: language barrier (Indian-speaking) History of Present Illness ED Provider: Kadie Del Valle PA-C HPI narrative: 64-year-old Indian-speaking female with medical history of chronic anemia, dementia, cirrhosis, esophageal varices who is brought in by EMS from [facility] due to elevated glucose. Patient was being taken by ambulance to scheduled appointment when EMS noticed tachypnea. EMS checked blood glucose and got an elevated reading of 398 and brought her to ED for treatment. Patient is complaining of abdominal pain and is scheduled for paracentesis Monday 06/11. Additionally, patient states she was dizzy today however is unable to explain dizziness or discuss it any further due to dementia. MD complaint: hyperglycemia Related Data Home Medications ?Medication ?Instructions ?Recorded ?Confirmed benztropine 0.5 mg tablet 0.5 mg PO BID 08/17/20 05/14/25 haloperidol 5 mg tablet 5 mg PO BEDTIME 08/17/20 05/14/25 insulin lispro 100 unit/mL See Protocol subcut TID 08/17/20 05/14/25 subcutaneous pen (Humalog KwikPen (U-100) Insulin) flash glucose sensor (FreeStyle #1 ea 05/01/23 11/27/24 Gurpreet 2 Sensor kit) insulin degludec 200 unit/mL (3 56 unit subcut QPM 05/01/23 05/14/25 mL) subcutaneous pen (Tresiba FlexTouch U-200 insulin) blood-glucose meter (FreeStyle #1 ea 06/17/24 11/27/24 [place] Lite kit) ferrous gluconate 240 mg (27 mg 240 mg PO DAILY 04/26/25 05/14/25 iron) tablet levofloxacin 250 mg tablet 250 mg PO DAILY 04/26/25 05/14/25 magnesium hydroxide 400 mg/5 mL 5 ml PO BEDTIME 04/26/25 05/14/25 oral suspension (Milk of Magnesia) sennosides 8.6 mg capsule (senna) 8.6 mg PO BEDTIME 04/26/25 05/14/25 Previous Rx's ?Medication ?Instructions ?Recorded blood pressure monitor (Blood #1 ea 10/29/22 Pressure Kit) furosemide 40 mg tablet 60 mg (1.5 x 40 mg) PO DAILY 90 11/27/24 days #135 tabs lactulose 10 gram/15 mL (15 mL) 20 g (30 mL) PO TID 90 days #8,100 11/27/24 oral solution mL rifaximin 550 mg tablet 550 mg PO BID 90 days #180 tabs 11/27/24 spironolactone 100 mg tablet 150 mg (1.5 x 100 mg) PO DAILY 90 11/27/24 days #135 tabs Allergies Allergy/AdvReac Type Severity Reaction Status Date / Time Penicillins Allergy Unknown HIVES Verified 06/09/25 15:19 Review of Systems Review of Systems: Patient poor historian, with dementia accurate ROS difficult to obtain CONST: Negative for fever, body aches and chills. HENT: Negative for neck pain/stiffness, headache, congestion, sore throat, swelling. EYES: Negative for discharge/pain or vision changes. RESP: Negative for cough/hemoptysis and shortness of breath. CV: Negative chest pain, difficulty breathing, palpitations. ABD: Negative nausea, vomiting. POS abd pain : Negative increase frequency, dysuria, blood in urine or stool. MUSC: Negative for muscle aches, edema. SKIN: Negative rash, lesions/sores. NEURO: Negative headache, dizziness, weakness. POS dizziness Yes all other systems are reviewed and are negative PMFSH Past Medical History Medical History (Updated 06/09/25 @ 19:45 by Ivon Engle PA-C) Seizure Schizoaffective disorder Diabetes Thrombocytopenia Hyperkalemia Esophageal varices determined by endoscopy Cirrhosis of liver with ascites Parkinson disease Hypertension Diabetes Surgical History Hx of esophagogastroduodenoscopy Hx of colonoscopy Family History Family History Father Colon cancer Mother Diabetes Colon polyps Daughter Lupus Social History Social History Household Members: Children Housing: House Housing Other:: [employer] Are you a primary resident care provider to a significant other at home: No Do you presently have visiting nurse or other home services: No Alcohol intake: former Patient Tobacco Use Status: Former Tobacco user service: No Current occupational status: unemployed and disabled Physical Exam ED Vital Signs: Vital Signs - 24 hr 06/09/25 15:13 06/09/25 15:16 06/09/25 18:46 Temperature 97.8 F 98.0 F Pulse Rate 84 82 81 Respiratory Rate 18 22 H 29 H Blood Pressure 121/62 121/61 123/41 L Pulse Oximetry 100 100 100 Oxygen Delivery Method Room Air Room Air Room Air BMI result Body Mass Index 31.9 GENERAL APPEARANCE: ?AxOx2, to self and year, no acute distress. HEENT: ?NC, AT. MMM. EOMI, clear conjunctiva, oropharynx clear. NECK: ?Supple without lymphadenopathy.? No stiffness or restricted ROM. HEART:? Normal rate and regular rhythm, normal S1/S1, no m/r/g LUNGS:? CTAB, moving air well. No crackles or wheezes are heard. ABDOMEN: Very large rotund tympanic abdomen, without rigidity, diffuse pain to palpation, no overlying skin changes, mild fluid wave BACK: No CVAT, no obvious deformity. EXTREMITIES: ?Without cyanosis, clubbing or edema. NEUROLOGICAL: ?Grossly nonfocal. Alert and oriented, moving all 4 extremities. Skin: ?Warm and dry without any rash. Medications Administered Discontinued Medications Generic Name Dose Route Start Last Admin Trade Name Freq PRN Reason Stop Dose Admin Ceftriaxone Sodium 1 gm 06/09/25 17:11 06/09/25 17:47 Ceftriaxone Sodium 1 Gm Vial IVPUSH 06/09/25 17:12 1 gm ONCE ONE Administration Lidocaine HCl 15 ml 06/09/25 17:21 06/09/25 17:47 Lidocaine Hcl 1 % Mpf 5 Ml Vial SUBCUT 06/09/25 17:22 15 ml ONCE ONE Administration Medical Decision Making Medical Decision Making MDM Narrative: 64-year-old Indian-speaking female with medical history of chronic anemia, dementia, cirrhosis, esophageal varices who is brought in by EMS from [facility] due to elevated glucose. Patient was being taken by ambulance to scheduled appointment when EMS noticed tachypnea. EMS checked blood glucose and got an elevated reading of 398 and brought her to ED for treatment. Patient is complaining of abdominal pain and is scheduled for paracentesis Monday 06/11. Additionally, patient states she was dizzy today however is unable to explain dizziness or discuss it any further due to dementia. Course 19:31- Labs revealed leukopenia of 3.3, normocytic anemia with a hemoglobin of 8.6, hematocrit of 26.1, platelet count 26, BUN of 34, random glucose of 271, AST of 48, alkaline phosphatase of 151, and ammonia 74, albumin of 2.8 however this is most likely elevated due to cirrhosis with known ascites. Occult stool blood positive, I believe patient would benefit from EGD scope to evaluate for bleeding esophageal varices and for paracentesis of abdominal fluid. Abdomen large and rotund. With my attending physician and I utilized ultrasound to evaluate for ascites, small amount of abdominal fluid was taken for culture and evaluation. Patient was medicated with 1 g ceftriaxone for prophylactic coverage, 40 mg Protonix, octreotide for possible upper GI bleed/bleeding varices. I discussed patient with hospitalist Dr. Lee who recommended CT abdomen and pelvis for further evaluation and will admit to medicine. Differential Diagnosis Differential Diagnoses: The differential diagnosis associated with the presentation includes DKA Electrolyte abnormality Hyperglycemia Cirrhosis with ascites Admission/Observation Consideration of admission/observation: Escalation of care including admission/observation considered Consult Healthcare Provider Management of the patient was discussed with: Hospitalist (Dr. Lee) Lab Data MDM Lab Attestation statement: I reviewed the patient's lab results. 06/09/25 15:42 06/09/25 15:42 Labs: Lab Results 06/09/25 06/09/25 06/09/25 Range/Units 15:09 15:42 15:55 WBC 3.3 L (4.8-10.8) X10*3/uL RBC 2.83 L (4.20-5.50) X10*6/uL Hgb 8.6 L (12.0-16.0) g/dl Hct 26.1 L (37.0-47.0) % MCV 92.2 (80.0-98.0) fL MCH 30.4 (27.0-33.0) pg MCHC 33.0 (31.0-35.0) g/dl RDW 14.6 (11.0-16.0) % Plt Count 26 L (160-400) X10*3/uL MPV 12.3 (9.4-12.3) fL Immature Gran % (Auto) 0.3 (0.0-0.4) % Neut % (Auto) 65.2 (45-73) % Lymph % (Auto) 11.5 L (20-40) % Collier % (Auto) 8.5 (2-11) % Eos % (Auto) 13.9 H (0-4) % Baso % (Auto) 0.6 (0-2) % Lymph # (Auto) 0.4 L (1.2-4.9) X10*3/uL Collier # (Auto) 0.3 (0.1-1.2) X10*3/uL Eos # (Auto) 0.5 H (0.0-0.4) X10*3/uL Baso # (Auto) 0.0 (0.0-0.2) X10*3/uL Abs Immat Gran (auto) 0.01 (0.00-0.03) X10*3/uL Absolute Neuts (auto) 2.2 (2.0-8.3) x10*3/uL Absolute Nucleated RBC 0.000 (0.0-0.012) X10*3/uL Nucleated RBC % (auto) 0.0 (0.0-0.2) /100WBC VBG pH (7.32-7.43) VBG pCO2 mmHg VBG pO2 mmHg VBG HCO3 (22-26) mmol/L VBG O2 Saturation % VBG Base Excess mmol/L Sodium 135 (135-145) mmol/L Potassium 5.1 (3.3-5.1) mmol/L Chloride 107 (96-108) mmol/L Carbon Dioxide 21 L (22-29) mmol/L Anion Gap 12 (12-20) BUN 34 H (9-16) mg/dL Creatinine 1.15 (0.5-1.4) mg/dL Estim Creat Clear Calc 50.7 Estimated GFR 48 POC Glucose 290 H (60-115) mg/dL Random Glucose 271 H (60-115) mg/dL Calcium 8.3 L (8.4-10.2) mg/dL Total Bilirubin 0.7 (0.0-1.0) mg/dL Direct Bilirubin 0.2 (0.0-0.5) mg/dL AST 48 H (5-31) U/L ALT 23 (0-31) U/L Alkaline Phosphatase 151 H (39-117) U/L Ammonia 74 H (13-55) umol/L Troponin I High Sens 3.7 (<3.5-17.0) ng/L Total Protein 6.6 (6.5-8.0) g/dL Albumin 2.8 L (3.5-5.0) g/dL Lipase 41 (8-78) U/L Beta-Hydroxybutyrate 0.10 (0.02-0.27) mmol/L Stool Occult Blood (NEGATIVE) 06/09/25 06/09/25 Range/Units 16:02 16:43 WBC (4.8-10.8) X10*3/uL RBC (4.20-5.50) X10*6/uL Hgb (12.0-16.0) g/dl Hct (37.0-47.0) % MCV (80.0-98.0) fL MCH (27.0-33.0) pg MCHC (31.0-35.0) g/dl RDW (11.0-16.0) % Plt Count (160-400) X10*3/uL MPV (9.4-12.3) fL Immature Gran % (Auto) (0.0-0.4) % Neut % (Auto) (45-73) % Lymph % (Auto) (20-40) % Collier % (Auto) (2-11) % Eos % (Auto) (0-4) % Baso % (Auto) (0-2) % Lymph # (Auto) (1.2-4.9) X10*3/uL Collier # (Auto) (0.1-1.2) X10*3/uL Eos # (Auto) (0.0-0.4) X10*3/uL Baso # (Auto) (0.0-0.2) X10*3/uL Abs Immat Gran (auto) (0.00-0.03) X10*3/uL Absolute Neuts (auto) (2.0-8.3) x10*3/uL Absolute Nucleated RBC (0.0-0.012) X10*3/uL Nucleated RBC % (auto) (0.0-0.2) /100WBC VBG pH 7.49 H (7.32-7.43) VBG pCO2 26 mmHg VBG pO2 219 mmHg VBG HCO3 20 L (22-26) mmol/L VBG O2 Saturation 100.0 % VBG Base Excess -1.9 mmol/L Sodium (135-145) mmol/L Potassium (3.3-5.1) mmol/L Chloride (96-108) mmol/L Carbon Dioxide (22-29) mmol/L Anion Gap (12-20) BUN (9-16) mg/dL Creatinine (0.5-1.4) mg/dL Estim Creat Clear Calc Estimated GFR POC Glucose (60-115) mg/dL Random Glucose (60-115) mg/dL Calcium (8.4-10.2) mg/dL Total Bilirubin (0.0-1.0) mg/dL Direct Bilirubin (0.0-0.5) mg/dL AST (5-31) U/L ALT (0-31) U/L Alkaline Phosphatase (39-117) U/L Ammonia (13-55) umol/L Troponin I High Sens (<3.5-17.0) ng/L Total Protein (6.5-8.0) g/dL Albumin (3.5-5.0) g/dL Lipase (8-78) U/L Beta-Hydroxybutyrate (0.02-0.27) mmol/L Stool Occult Blood POSITIVE (NEGATIVE) Independent Interpretation I performed an independent interpretation of an: EKG Interpretation: I personally interpreted the EKG which revealed sinus rhythm, premature supraventricular complexes, incomplete right bundle branch block, without ST-elevation/depression Vent. Rate : 83 BPM Atrial Rate : 83 BPM P-R Int : 134 ms QRS Dur : 114 ms QT Int : 402 ms P-R-T Axes : 50 39 23 degrees QTcB Int : 472 ms Sinus rhythm with Premature supraventricular complexes Incomplete right bundle branch block Borderline ECG When compared with ECG of 13-Apr-2025 23:47, Premature supraventricular complexes are now Present External Record Review External record reviewed: Inpatient record, Office record and Outpatient record Chronic Conditions Patient?s care impacted by: Diabetes and Other (Cirrhosis with ascites) Discharge Plan Discharge Clinical Impression: Thrombocytopenia, Ascites Patient Disposition: Admitted As Inpatient Interventions: Admission Worksheet (ED) Last Done: 06/09/25 18:32 Print Language: Indian
[2025-06-09 15:47] LABS: MANUAL DIFF FLAG NO
[2025-06-09 15:56] LABS: Hematocrit 26.1 % (37.0-47.0); Hemoglobin 8.6 g/dl (12.0-16.0); Imm Gran Abs Auto 0.01 X10*3/uL (0.00-0.03); Imm Gran Pct Auto 0.3 % (0.0-0.4); Lymphocytes Absolute Auto 0.4 X10*3/uL (1.2-4.9); Mean Corpuscular HGB Conc 33.0 g/dl (31.0-35.0); Mean Corpuscular Hemoglobin 30.4 pg (27.0-33.0); Mean Corpuscular Volume 92.2 fL (80.0-98.0); NRBC Abs Auto 0.000 X10*3/uL (0.0-0.012); NRBC Pct Auto 0.0 /100WBC (0.0-0.2); Red Blood Count 2.83 X10*6/uL (4.20-5.50); White Blood Count 3.3 X10*3/uL (4.8-10.8)
[2025-06-09 15:58] LABS: Ammonia 74 umol/L (13-55)
[2025-06-09 16:01] LABS: Platelet Count 26 X10*3/uL (160-400)
[2025-06-09 16:07] LABS: Venous Blood Gas Refer to POC result
[2025-06-09 16:07] LABS: VBG HCO3 20 mmol/L (22-26); VBG O2 % Saturation 100.0 %
[2025-06-09 16:08] LABS: Alanine Aminotransferase 23 U/L (0-31); Albumin Level 2.8 g/dL (3.5-5.0); Alkaline Phosphatase 151 U/L (39-117); Anion Gap 12 (12-20); Aspartate Amino Transferase 48 U/L (5-31); Blood Urea Nitrogen 34 mg/dL (9-16); Calcium 8.3 mg/dL (8.4-10.2); Carbon Dioxide 21 mmol/L (22-29); Chloride 107 mmol/L (96-108); Creatinine Clr Calc Pharmacy 50.7; Estimated Glomerular Filt Rate 48; Lipase 41 U/L (8-78); Potassium 5.1 mmol/L (3.3-5.1); Sodium 135 mmol/L (135-145); Total Protein 6.6 g/dL (6.5-8.0)
[2025-06-09 16:33] LABS: Troponin-I High Sensitivity 3.7 ng/L (<3.5-17.0)
--- OUTSIDE RECORDS SUMMARY | 2025-06-09 16:40 | XMS_ITS | Clinical Summary ---
Author Organization [facility] Address [address] [place] [address] Phone Care Team Providers Care Sound Engineer Name Role Phone Unavailable Primary Care Provider [...] morning. 3 Active Insulin Pen Needle (Pen [place] 01/03 ) 31G X 5 MM misc [...] Care Team (Late st Contact Info) Description 07/01/2025 4:30 PM EDT Office Visit [facility] [address] [place] [address] Rigo Freed MD [address] [place] [address] Health Maintenance Due Date Last [...] Years) Discontinued 12/03/2022, 07/29/2013, 02/17/2007 [place]
--- OUTSIDE RECORDS SUMMARY | 2025-06-09 16:40 | XMS_ITS | Encounter Summary ---
Author Organization [employer] Address [address] [facility] [address] [place] [address] Care Team Providers Care Legal Office Administrator Name Role Phone Ana Davis EXIT BOOTH AGENT Primary Care Provider [phone] Andree Ulloa PharmD Unavailable [phone] Jacquie Sarkar Unavailable Reason for Referral * Consultation (Routine) - Authorized Specialty Diagnoses / Procedures Referred By Ivelisse t Referred To Contact Pharmacy Diagnoses Type 2 diabetes mellitus without complication, with long-term current use of insulin (CMS/HCC) Catalina Mendez MD [address] [place] [id number] Phone: tel: fax: Referral ID Status Reason Start Date Expiration Date Visits Requested Visits Authorized [id number] Authorized Consult and Treat 02/23/2025 02/23/2026 6 6 Encounter Details Date Type Department Care Team (Late st Contact Info) Description 02/23/2025 Orders Only [facility] [address] [place] [address] [phone] Catalina Mendez MD [address] [place] [address] Type 2 diabetes mellitus without complication, with [...] Care Team (Late st Contact Info) Description 07/16/2025 2:00 PM EDT Office Visit [facility] [address] [place] [address] [place] FNP [address] [place] [address] 08/04/2025 3:30 PM EDT Office Visit [facility] [address] [place] [address] Elisabeth Melchor, OD [address] [place] [address] Scheduled Referrals Name Type Priority Associated Diagnoses Orde r Schedule Referral to Pharmacy CDTM Outpatient Referral Routine Type 2 diabetes mellitus without complication, with long-term current use of insulin (CMS/HCC) Ordered: 02/23/2025 documented as of this encounter [...] complication, with long-term current use of insulin (CMS/[facility]ER[facility])- Primary documented in this encounter Additional Health Concerns Assessment Noted Time PHQ-9 Depression Total Score: 10 025 1:44 PM EST documented as of this encounter Care Teams Legal Office Administrator Relationship Specialty Start Date End Date [facility] [address] [place] [address] PCP - General Family Medicine 04/05/22 Andree Ulloa PharmD [address] [place] [address] Pharmacist Internal Medicine 05/09/23 Jacquie Sarkar 05/20/25 06/03/25 Flavia Segundo Chip Machine OperatorCombine Operator 10/10/23 Gabrielle Fitch Chip Machine OperatorCombine Operator 11/05/24 [employer] 02/06/25 documented as of this encounter
--- OUTSIDE RECORDS SUMMARY | 2025-06-09 16:40 | XMS_ITS | Clinical Summary ---
Author Organization [facility] Address [address] [place] [address] Phone Care Team Providers Care Tripe Finisher Name Role Phone Yash Arredondo NP Primary Care Provider [phone] Allergies Active Allergy Reactions Criticality Noted Date [...] Decompensated QURESHI cirrhosis MELD-Na: 16. Followed by [facility]. Paracentesis q. 2 weeks. EGD 2019 with grade II varices. Colonoscopy 2019 with polyps removed. Tubular adenoma present. Lactulose 2-3x/day for hepatic encephalopathy with goal 2-3 BM's per day. On propranolol 30mg b.I.d for varices. Lasix 100mg daily and sironolactione 150mg for ascites. Thrombocytopenia (CMS/HCC V24) 04/21/2018 Surgical History Surgery Date Site/Laterality Comments OTHER SURGICAL HISTORY N/A PROCEDURE: LA ABDOM PARACENTESIS DX/THER W/IMAGING GUIDANCE Medical History [...] Albumin-Creatinine Ratio (uACR) 10/12/2024 Depression Screening 10/21/2024 Influenza Vaccine (#1) 2025 , 09/02/2023, 10/05/2022, Additional history exists Diabetes: Blood Sugar Control Test (HGBA1C) 08/14/2025 02/12/2025, 08/31/2024, 06/12/2024 Diabetes: Annual GFR (Glomerular Filtration Rate) 05/14/2026 05/14/2025, 11/24/2024, 11/18/2024, Additional history exists Hypertension/CHF/CAD Annual BMP Blood Test 05/14/2026 05/14/2025, 11/24/2024, 11/18/2024, Additional history exists Cholesterol Screening (Lipid Panel) [...] mmol/L LAB CHEMISTRY METHOD 11/24/2024 8:52 PM [facility] Potassium 4.0 3.5 - 5.5 mmol/L LAB CHEMISTRY METHOD 11/24/2024 8:52 PM [facility] Chloride 103 96 - 110 mmol/L LAB CHEMISTRY METHOD 11/24/2024 8:52 PM [facility] CO2 25 21 - 32 mmol/L LAB CHEMISTRY METHOD 11/24/2024 8:52 PM [facility] Anion Gap 4 3 - 11 LAB CHEMISTRY METHOD 11/24/2024 8:52 PM [facility] Glucose 353(H) 70 - 100 mg/dL LAB CHEMISTRY METHOD 11/24/2024 8:52 PM [facility] BUN 23 5 - 25 mg/dL LAB CHEMISTRY METHOD 11/24/2024 8:52 PM [facility] Creatinine 0.93 0.50 - 1.10 mg/dL LAB CHEMISTRY METHOD 11/24/2024 8:52 PM [facility] eGFR 69 >=60 mL/min/1. 73m2 LAB CHEMISTRY METHOD 11/24/2024 8:52 PM [facility] Comment:Calculation based on the Chronic Kidney Disease Epidemiology Collaboration (CKD-EPI) equation refit without adjustment for race. BUN/Creatinine Ratio 24.7 LAB CHEMISTRY METHOD 11/24/2024 8:52 PM [facility] Calcium 8.3(L) 8.5 - 10.5 mg/dL LAB CHEMISTRY METHOD 11/24/2024 8:52 PM [facility] AST (SGOT) 29 10 - 42 unit/L LAB CHEMISTRY METHOD 11/24/2024 8:52 PM [facility] ALT (SGPT) 29 10 - 60 unit/L LAB CHEMISTRY METHOD 11/24/2024 8:52 PM [facility] Alkaline Phosphatase 188(H) 42 - 121 unit/L LAB CHEMISTRY METHOD 11/24/2024 8:52 PM [facility] Total Protein 6.6 6.0 - 8.0 g/dL LAB CHEMISTRY METHOD 11/24/2024 8:52 PM [facility] Albumin 2.4(L) 3.2 - 5.0 g/dL LAB CHEMISTRY METHOD 11/24/2024 8:52 PM [facility] Total Bilirubin 0.9 0.0 - 1.4 mg/dL LAB CHEMISTRY METHOD 11/24/2024 8:52 PM [facility] Blood Venous blood specimen / Unknown Venipuncture / Unknown 11/24/2024 8:01 PM EST 11/24/2024 8:11 PM EST us Rigo Genao MD LAB BLOOD ORDERABLES Final Result [facility] [address] [place] [address], * Lipid panel with reflex to direct LDL (10/13/2024 5:24 AM EST) Cholesterol 125 0 - 200 mg/dL LAB CHEMISTRY METHOD 10/13/2024 6:[address] [facility] Triglycerides 66 0 - 150 mg/dL LAB CHEMISTRY METHOD 10/13/2024 6:43 AM [facility] HDL 48 >=40 mg/dL LAB CHEMISTRY METHOD 10/13/2024 6:43 AM [facility] LDL Calculated 64 0 - 100 mg/dL LAB CHEMISTRY METHOD 10/13/2024 6:[address] [facility] VLDL Cholesterol Luke 13.2 mg/dL LAB CHEMISTRY METHOD 10/13/2024 6:43 AM [facility] Non HDL Chol. (LDL+VLDL) 77 <145 mg/dL LAB CHEMISTRY METHOD 10/13/2024 6:43 AM [facility] Chol/HDL Ratio 2.6 0.0 - 4.4 LAB CHEMISTRY METHOD 10/13/2024 6:43 AM [facility] Blood Venous blood specimen / Unknown Venipuncture / Unknown 10/13/2024 5:24 AM EST 10/13/2024 6:07 AM EST Salena RODRIGUEZ LAB BLOOD ORDERABLES Fi nal Result [facility] [address] [place] [address], from Last 3 Months or Most Recently Relevant to Health Maintenance Insurance MEDICAID - [place] Advance Directives Documents on File Type Date Recorded Patient Pickle Solution Maker Expl anation Health Care Decision (hx) 12/28/2023 [...] currently active code status orders. Care Teams Tripe Finisher Relationship Specialty Start Date End Date Yash Arredondo NP [address] [place] [address] PCP - General 09/15/13
[2025-06-09 17:19] LABS: OBS Int Ctl Valid YES; OBS1 POSITIVE (NEGATIVE)
[2025-06-09] MEDS: Lidocaine HCl 1 % MPF 5 ML VIAL 15 ML SUBCUT (17:47)
[2025-06-09 18:46] VITALS: BP 123/41; PULSE 81; RESP 29; TEMP 36.7; O2SAT 100
[2025-06-09] MEDS: iohexoL 350 MG/ML 100 ML INFUS..BTL IV (19:52)
[2025-06-09 20:00] LABS: MN% 75.3 %; PMN% 24.7 %; WBC Peritoneal Fluid 0.342 X10*3/uL
[2025-06-09 20:30] VITALS: BP 114/47; PULSE 82; RESP 20; TEMP 36.6; O2SAT 100
[2025-06-09] MEDS: Octreotide Acetate 100 MCG/ML AMPUL 50 MCG IVPUSH (20:48)
--- NOTE | 2025-06-09 21:19 | PM.IMHP ---
History of Present Illness Date of Service: 06/09/25 Attending physician on admission: Eun Lee Chief Complaint: hyperglycemia, SOB at rest Patient is a 64-year-old female living in a penitentiary unable to provide HPI, past medical history or surgical history. After review of patient's medical records patient has a past medical history of schizoaffective disorder, dementia, hepatic encephalopathy, thrombocytopenia secondary to liver failure, cirrhosis of the liver, esophageal varices, iron deficiency anemia, insulin-dependent diabetes presents to the emergency department after being brought in by EMS for blood sugar of 398 and shortness of breath at rest. Patient was being picked up by the same EMS provider for an appointment with GI but noted that patient was extremely short of breath at rest without hypoxia. In addition they did a point of care and it was registering 398. EMS decided to take patient to the ED versus going to the appointment with GI. Blood glucose on arrival was 290. Patient's oxygenation was stable on room air. Patient noted to have significant ascites and was planned for a paracentesis on Saturday06/10/2025 as an outpatient. Patient does not have a PleurX drain in place. Per ED record patient initially was complaining of abdominal pain on arrival. Patient's baseline confused and unable to answer questions appropriately. population health manager required. CT scan done in the ED noted hepatic cirrhosis with moderate abdominal pelvic ascites. Also moderate diffuse mesenteric stranding was present with the acute spontaneous peritonitis that can not be excluded. Patient was started on ceftriaxone. Plan is to admit patient for Interventional Radiology in the a.m. for paracentesis. GI will also be consulted as patient's stool for occult was positive for blood. H&H currently 8.6 and 26.1 and patent patient's platelets are 26,000. Patient overall has pancytopenia. INR 1.3. VBG reassuring pH 7.49, CO2 26, PO2 219 and bicarb 20. Renal function somewhat lower than baseline with a creatinine clearance of 50.7 and a GFR of 48. Creatinine 1.15, BUN 34. AST 48, ALT 23 and alk-phos 151. Ammonia is. 74 and patient is normally on lactulose. Troponin 3.7. Lipase 41 and beta hydroxybutyrate 0.10. Patient does not have evidence of HHS or DKA. Plan is to continue ceftriaxone, Protonix and octreotide in the ED. Review of Systems Review of Systems: Yes Unobtainable due to mental status (Dementia patient had stated she left her dialysis at home patient is not o) [facility] Medical History Seizure Schizoaffective disorder Diabetes Thrombocytopenia Hyperkalemia Esophageal varices determined by endoscopy Cirrhosis of liver with ascites Parkinson disease Hypertension Diabetes Cognitive capacity: Alert to self Patient : No Family History Father Colon cancer Mother Diabetes Colon polyps Daughter Lupus Surgical History Hx of esophagogastroduodenoscopy Hx of colonoscopy Social History Household Members: Children Housing: House Housing Other:: [employer] Are you a primary home care manager to a significant other at home: No Do you presently have visiting nurse or other home services: No Alcohol intake: former Patient Tobacco Use Status: Former Tobacco user Smoked in Last 30 Days: No Use of substances other than those prescribed or required for medical reasons: No Advance Directives: No Do you have a plan to hurt others: No Plan Patient : No service: No Current occupational status: unemployed and disabled Ebola Risk: Travel/Contact With Anyone From Affected Area/s: No Has Patient Experienced Ebola Symptoms: No Meds Allergies Allergy/AdvReac Type Severity Reaction Status Date / Time Penicillins Allergy Unknown HIVES Verified 06/09/25 15:19 Active Medications: Current Medications Acetaminophen (Acetaminophen 325 Mg Tablet) 650 mg PO Q6H PRN PRN Reason: Pain, Mild 1-3,fever,headache Albuterol/Ipratropium (Albuterol/Iprat 2.5/0.5mg 3 Ml Ampul.Neb) 3 ml INHALE Q4H PRN PRN Reason: Shortness of Breath/Wheezing Calcium Carbonate (Calcium Carbonate 750 Mg Tab.Chew) 750 mg PO Q4H PRN PRN Reason: Heartburn Ceftriaxone Sodium (Ceftriaxone Sodium 1 Gm Vial) 1 gm IVPUSH Q24H JOSEMANUEL Dextrose (Dextrose 50 % 25 Gm/50 Ml Syringe) 25 gm IVPUSH Q15M PRN; Protocol PRN Reason: per Hypoglycemia Standing Ord. Glucose (Glucose Gel 15 Gm Gel..Gram.) 15 gm PO Q15M PRN; Protocol PRN Reason: per Hypoglycemia Standing Ord. Octreotide Acetate 500 mcg/ (Sodium Chloride) 501 mls @ 50.1 mls/hr IVCONT .Q10H [facility] Last Admin: 06/09/25 20:50 Dose: 50 mcg/hr, 50.1 mls/hr Insulin Human Lispro (Insulin Lispro 100 Unit/Ml 3 Ml Vial) 0 unit SUBCUT QIDACHS [facility]; Protocol Magnesium Hydroxide (Milk Of Magnesia 30 Ml Oral.Susp) 30 ml PO DAILY PRN PRN Reason: Constipation Melatonin (Melatonin 3 Mg Tablet) 6 mg PO BEDTIME PRN PRN Reason: Insomnia Ondansetron HCl (Ondansetron Hcl 4 Mg/2 Ml Vial) 4 mg IVPUSH Q8H PRN PRN Reason: Nausea and Vomiting Pantoprazole Sodium (Pantoprazole Sodium 40 Mg/10 Ml Vial) 40 mg IVPUSH BID@0630,1630 [facility] Polyethylene Glycol (Polyethylene Glycol 3350 17 Gm Powd.Pack) 17 gm PO DAILY PRN PRN Reason: Constipation Sodium Chloride (0.9 % Sodium Chloride Flush 3 Ml Syringe) 3 [facility] Medications ?Medication ?Instructions ?Recorded ?Confirmed ?Last Taken ?Type benztropine 0.5 mg tablet 0.5 mg PO BEDTIME 08/17/20 06/09/25 Unknown History haloperidol 5 mg tablet 10 mg PO BID 08/17/20 06/09/25 05/14/25 08:00 History insulin lispro 100 unit/mL See Protocol subcut TID 08/17/20 06/09/25 05/14/25 08:00 History subcutaneous pen (Humalog KwikPen (U-100) Insulin) flash glucose sensor (FreeStyle #1 ea 05/01/23 11/27/24 Unknown History Gurpreet 2 Sensor kit) insulin degludec 200 unit/mL (3 62 unit subcut BEDTIME 05/01/23 06/09/25 05/14/25 08:00 History mL) subcutaneous pen (Tresiba FlexTouch U-200 insulin) blood-glucose meter (FreeStyle #1 ea 06/17/24 11/27/24 Unknown History [place] Lite kit) ferrous gluconate 240 mg (27 mg 240 mg PO DAILY@0730 04/26/25 06/09/25 05/14/25 08:00 History iron) tablet levofloxacin 250 mg tablet 250 mg PO DAILY 04/26/25 06/09/25 05/14/25 08:00 History magnesium hydroxide 400 mg/5 mL 30 ml PO BEDTIME PRN constipation 04/26/25 06/09/25 Unknown History oral suspension (Milk of Magnesia) #1 sennosides 8.6 mg capsule (senna) 8.6 mg PO BID PRN Constipation 04/26/25 06/09/25 Unknown History acetaminophen 325 mg tablet 650 mg PO Q4H PRN Fever Or Pain 06/09/25 06/09/25 Unknown History acetaminophen 650 mg rectal 650 mg TN Q4H PRN Fever Or Pain 06/09/25 06/09/25 Unknown History suppository bisacodyl 10 mg rectal suppository 10 mg TN DAILY PRN constipation #2 06/09/25 06/09/25 Unknown History lactulose 10 gram/15 mL (15 mL) 30 g PO TID 06/09/25 06/09/25 Unknown History oral solution melatonin 3 mg tablet 3 mg PO BEDTIME PRN Sleep 06/09/25 06/09/25 Unknown History naloxone 4 mg/actuation nasal 4 mg intranasal Q3M PRN overdose 06/09/25 06/09/25 Unknown History spray (Narcan) sodium phosphates 19 gram-7 118 ml TN DAILY PRN constipation #3 06/09/25 06/09/25 Unknown History gram/118 mL enema (Fleet Enema) spironolactone 50 mg tablet 50 mg PO DAILY 06/09/25 06/09/25 Unknown History Physical Exam Vital Signs and Narrative: Vital Signs: Last Vital Signs Temp 97.9 F 06/09/25 20:30 Pulse 82 06/09/25 20:30 Resp 20 06/09/25 20:30 BP 114/47 L 06/09/25 20:30 Pulse Ox 100 06/09/25 20:30 O2 Del Method Room Air 06/09/25 20:30 BMI result Body Mass Index 31.9 Alert to self only is pleasantly confused, unable to give good history. Neuro: CN II-X11 intact EYES: PERRLA, sclerae nonicteric ENT: hearing intact, uvula midline, lips moist, nares patent no epistaxis Cardiac: S1 S2 RRR, II/ systolic murmur, no JVD, no edema in Lower ext Pulmonary: lungs diminished bilaterally Abdominal: BS , diminished throughout significant distention with firmness and umbilical hernia seen MSK: 3/5 upper and lower ext : no CVA tenderness incontinent of urine Extremities: no edema in lower extremities, PT and DP pulses palpable +2 Psych: mood stable, judgement and insight poor Skin: No skin breakdown on the backside, no open wounds Results Labs 06/09/25 15:42 06/09/25 15:42 Labs: Laboratory Results - last 24 hr 06/09/25 06/09/25 06/09/25 15:09 15:42 16:02 MCV 92.2 MCH 30.4 MCHC 33.0 RDW 14.6 Plt Count 26 L MPV 12.3 Immature Gran % (Auto) 0.3 Neut % (Auto) 65.2 Lymph % (Auto) 11.5 L Pratt % (Auto) 8.5 Eos % (Auto) 13.9 H Baso % (Auto) 0.6 Lymph # (Auto) 0.4 L Pratt # (Auto) 0.3 Eos # (Auto) 0.5 H Baso # (Auto) 0.0 Abs Immat Gran (auto) 0.01 Absolute Neuts (auto) 2.2 Absolute Nucleated RBC 0.000 Nucleated RBC % (auto) 0.0 VBG pH 7.49 H VBG pCO2 26 VBG pO2 219 VBG HCO3 20 L VBG O2 Saturation 100.0 VBG Base Excess -1.9 Anion Gap 12 Estim Creat Clear Calc 50.7 Estimated GFR 48 POC Glucose 290 H Random Glucose 271 H Calcium 8.3 L Total Bilirubin 0.7 Direct Bilirubin 0.2 AST 48 H ALT 23 Alkaline Phosphatase 151 H Ammonia 74 H Total Protein 6.6 Albumin 2.8 L Lipase 41 Beta-Hydroxybutyrate 0.10 Peritoneal WBC Peritoneal RBC Stool Occult Blood 06/09/25 06/09/25 16:43 19:14 MCV MCH MCHC RDW Plt Count MPV Immature Gran % (Auto) Neut % (Auto) Lymph % (Auto) Pratt % (Auto) Eos % (Auto) Baso % (Auto) Lymph # (Auto) Pratt # (Auto) Eos # (Auto) Baso # (Auto) Abs Immat Gran (auto) Absolute Neuts (auto) Absolute Nucleated RBC Nucleated RBC % (auto) VBG pH VBG pCO2 VBG pO2 VBG HCO3 VBG O2 Saturation VBG Base Excess Anion Gap Estim Creat Clear Calc Estimated GFR POC Glucose Random Glucose Calcium Total Bilirubin Direct Bilirubin AST ALT Alkaline Phosphatase Ammonia Total Protein Albumin Lipase Beta-Hydroxybutyrate Peritoneal WBC 0.342 Peritoneal RBC < 0.002 Stool Occult Blood POSITIVE Imaging Radiologist's Impressions: CT ABD PELVIS IMPRESSION: Hepatic cirrhosis with moderate abdominal pelvic ascites. Moderate diffuse mesenteric stranding is present. Acute spontaneous peritonitis can not be excluded. Moderately distended urinary bladder. Emptying is suggested. Assessment and Plan (1) Ascites: Qualifiers: Ascites type: other type Qualified Code(s): R18.8 - Other ascites Status: Acute Plan Patient is a 64-year-old female living in a penitentiary unable to provide HPI, past medical history or surgical history. After review of patient's medical records patient has a past medical history of schizoaffective disorder, dementia, hepatic encephalopathy, thrombocytopenia secondary to liver failure, cirrhosis of the liver, esophageal varices, iron deficiency anemia, insulin-dependent diabetes presents to the emergency department after being brought in by EMS for blood sugar of 398 and shortness of breath at rest. Patient was being picked up by the same EMS provider for an appointment with GI but noted that patient was extremely short of breath at rest without hypoxia. In addition they did a point of care and it was registering 398. EMS decided to take patient to the ED versus going to the appointment with GI. Blood glucose on arrival was 290. Patient's oxygenation was stable on room air. Patient noted to have significant ascites and was planned for a paracentesis on Saturday06/10/2025 as an outpatient. Patient does not have a PleurX drain in place. Per ED record patient initially was complaining of abdominal pain on arrival. Patient's baseline confused and unable to answer questions appropriately. population health manager required. Ascites Secondary to cirrhosis of liver Patient does not have a PleurX catheter Patient was plan for outpatient paracentesis on Saturday06/10/2025 Plan is for iron intervene in the a.m. with paracentesis, patient NPO after midnight GI consulted Possible SBP Evidence of possible SBP on CT scan Patient is afebrile, no nausea or vomiting Lactic acid pending No leukocytosis Patient is started on ceftriaxone Cirrhosis of the liver with esophageal varices/Positive stool for occult/ hepatic encephalopathy Patient is started on Protonix Patient also on octreotide with load and infusion GI consulted H&H stable currently patient does not require transfusion Ammonia, elevated at 74 continue lactulose Continue rifaximin and spironolactone after paracentesis IDDM/ hyperglycemia No evidence of DKA or HHS VBG reassuring Continue sliding scale insulin with Lantus Check A1c in the a.m. Thrombocytopenia/ pancytopenia Low platelets secondary to liver failure CBC daily If platelets fall below 20,000 consider transfusion No current spontaneous bleeding, bruising or petechiae INR is 1.3 Dementia/ schizoaffective disorder Patient currently baseline pleasantly confused No issues currently with agitation Continue Haldol at bedtime DVT prophylaxis: Held in the presence of low platelet count and possible GI bleed Med rec pending Full Code status Quality Stroke Does the patient have a stroke diagnosis?: No Reason for No Anti-thrombotic by Day Two: Contraindicated VTE Prior VTE?: No VTE Risk Level:: Medical - moderate - high VTE Device Contraindication: N/A - Device Ordered VTE Drug Contraindication: Treatment Not Indicated
--- NOTE | 2025-06-09 21:35 | PHA.MEDREC ---
Pharmacy Consult ? Medication Reconciliation Pharmacy has completed the medication reconciliation. Utilized List from [facility] [place]
[2025-06-09 21:47] LABS: BF Shift QC OK YES
[2025-06-09 22:00] LABS: Lymphocyte Peritoneal Fl 12 %; Monocytes Peritoneal Fl 12 %; Neutrophils Peritoneal Fluid 18 %; Other Peritioneal Fl 58 %
[2025-06-09 22:32] LABS: Glucose, Whole Blood 140 mg/dL (60-115)
[2025-06-09 22:49] VITALS: BP 116/53; PULSE 84; RESP 22; TEMP 36.7; O2SAT 98
[2025-06-09 23:37] VITALS: BMI 32.6
[2025-06-10 03:29] VITALS: BP 121/60; PULSE 84; RESP 18; TEMP 36.6; O2SAT 99
[2025-06-10 07:22] LABS: Glucose, Whole Blood 171 mg/dL (60-115)
[2025-06-10 07:40] VITALS: BP 109/64; PULSE 88; RESP 18; TEMP 37.1; O2SAT 94
--- NOTE | 2025-06-10 09:01 | MHC.CM.PN ---
Addendum entered by Nadiya Bess 06/10/25 09:31: [facility] confirmed that pt is LTC resident at their facility. Original Note: This CM met with pt with the assistance of a associate software developer, pt appears to be a poor historian, she stated she lives at home with family and has [facility] [employer] services daily. Pt stated her daughter is her HCP, and gave permission for this CM to speak with her. This CM placed call to pts daughter Karuna, she states her and her sister Dinorah are the HCP's, copy requested. Per Karuna, she states her mother has been at [facility] at [place] for the past couple months, and plan will be for her to return there via BLS at discharge. Return referral sent to [facility] via [facility], awaiting confirmation of behold status. PCP: Dr. Tono Nicole
--- NOTE | 2025-06-10 11:26 | MHC.CM.PN ---
Pts HCP and invocation copy received from [facility], now on file.
[2025-06-10 11:42] LABS: Glucose, Whole Blood 151 mg/dL (60-115)
[2025-06-10 11:58] VITALS: BP 139/69; PULSE 83; RESP 20; TEMP 36.1; O2SAT 97
--- NOTE | 2025-06-10 14:12 | P.PNIM_ITS ---
Subjective Subjective Date of Service: 06/10/25 Interval History: Seen and examined this morning Follow-up for abdominal pain, ascites History obtained with the assistance of a motor vehicle parts interpreter Patient vague, denies shortness of breath, reporting abdominal pain Review of Systems Review of Systems: Yes all other systems are reviewed and are negative Constitutional Constitutional: Denies chills and Denies fever(s) Cardiovascular Cardiovascular: Denies dyspnea Respiratory Respiratory: Denies dyspnea Gastrointestinal Gastrointestinal: Reports abdominal pain Physical Exam 2 Vital Signs: Vital Signs: Last Vital Signs Temp 97.0 F 06/10/25 11:58 Pulse 83 06/10/25 11:58 Resp 20 06/10/25 11:58 BP 139/69 06/10/25 11:58 Pulse Ox 97 06/10/25 11:58 O2 Del Method Room Air 06/10/25 11:58 BMI result Body Mass Index 32.6 Const: General: cooperative, comfortable, no acute distress, alert and awake Nutritional Appearance: average body habitus Orientation/consciousness: p atient oriented x3 Resp: Effort & Inspection: normal respiratory effort, able to speak in complete sentences and no respiratory distress Auscultation: clear to auscultation bilaterally GI: Inspection: No distended Palpation (GI): Soft to palpation Neuro: Other: grossly nonfocal General: patient oriented x3 Extrem: General: No pedal edema Objective Data Active Medications Acetaminophen (Acetaminophen 325 Mg Tablet) 650 mg PO Q6H PRN PRN Reason: Pain, Mild 1-3,fever,headache Last Admin: 06/10/25 12:15 Dose: 650 mg Documented By: CANDE Albuterol/Ipratropium (Albuterol/Iprat 2.5/0.5mg 3 Ml Ampul.Neb) 3 ml INHALE Q4H PRN PRN Reason: Shortness of Breath/Wheezing Benztropine Mesylate (Benztropine Mesylate 0.5 Mg Tablet) 0.5 mg PO BEDTIME [facility] Bisacodyl (Bisacodyl 10 Mg Supp.Rect) 10 mg LA DAILY PRN PRN Reason: constipation #2 Calcium Carbonate (Calcium Carbonate 750 Mg Tab.Chew) 750 mg PO Q4H PRN PRN Reason: Heartburn Ceftriaxone Sodium (Ceftriaxone Sodium 2 Gm Vial) 2 gm IVPUSH Q24H [facility]SE[facility] Dextrose (Dextrose 50 % 25 Gm/50 Ml Syringe) 25 gm IVPUSH Q15M PRN; Protocol PRN Reason: per Hypoglycemia Standing Ord. Furosemide (Furosemide 20 Mg Tablet) 60 mg PO DAILY [facility]; Protocol Glucose (Glucose Gel 15 Gm Gel..Gram.) 15 gm PO Q15M PRN; Protocol PRN Reason: per Hypoglycemia Standing Ord. Haloperidol (Haloperidol 5 Mg Tablet) 10 mg PO BID [facility] Octreotide Acetate 500 mcg/ (Sodium Chloride) 501 mls @ 50.1 mls/hr IVCONT .Q10H [facility] Last Admin: 06/10/25 05:33 Dose: 50 mcg/hr, 50.1 mls/hr Documented By: VALERIA Insulin Human Lispro (Insulin Lispro 100 Unit/Ml 3 Ml Vial) 0 unit SUBCUT QIDACHS [facility]; Protocol Last Admin: 06/10/25 12:04 Dose: 2 unit Documented By: CANDE Lactulose (Lactulose 20 Gm/30 Ml Solution) 30 gm PO TID [facility] Magnesium Hydroxide (Milk Of Magnesia 30 Ml Oral.Susp) 30 ml PO DAILY PRN PRN Reason: Constipation Magnesium Hydroxide (Milk Of Magnesia 30 Ml Oral.Susp) 30 ml PO BEDTIME PRN PRN Reason: constipation #1 Melatonin (Melatonin 3 Mg Tablet) 6 mg PO BEDTIME PRN PRN Reason: Insomnia Ondansetron HCl (Ondansetron Hcl 4 Mg/2 Ml Vial) 4 mg IVPUSH Q8H PRN PRN Reason: Nausea and Vomiting Pantoprazole Sodium (Pantoprazole Sodium 40 Mg/10 Ml Vial) 40 mg IVPUSH BID@0630,1630 [facility] Last Admin: 06/10/25 05:17 Dose: 40 mg Documented By: VALERIA Polyethylene Glycol (Polyethylene Glycol 3350 17 Gm Powd.Pack) 17 gm PO DAILY PRN PRN Reason: Constipation Rifaximin (Rifaximin 550 Mg Tablet) 550 mg PO BID [facility] Senna (Sennosides 8.6 Mg Tablet) 8.6 mg PO BID PRN PRN Reason: Constipation Sodium Biphosphate/Sodium Phosphate (Sodium Phosphate,[place]-Dibasic 133 Ml Enema) 133 ml LA DAILY PRN PRN Reason: constipation #3 Sodium Chloride (0.9 % Sodium Chloride Flush 3 Ml Syringe) 3 ml IVFLUSH QSHIFT [facility] Last Admin: 06/10/25 07:52 Dose: Not Given Documented By: CANDE Non-Admin Reason: IV Running Spironolactone (Spironolactone 25 Mg Tablet) 50 mg PO DAILY [facility]; Protocol Labs 06/09/25 15:42 06/09/25 15:42 Labs: Laboratory Results - last 24 hr 06/09/25 06/09/25 06/09/25 15:09 15:42 16:02 MCV 92.2 MCH 30.4 MCHC 33.0 RDW 14.6 Plt Count 26 L MPV 12.3 Immature Gran % (Auto) 0.3 Neut % (Auto) 65.2 Lymph % (Auto) 11.5 L [place] % (Auto) 8.5 Eos % (Auto) 13.9 H Baso % (Auto) 0.6 Lymph # (Auto) 0.4 L [place] # (Auto) 0.3 Eos # (Auto) 0.5 H Baso # (Auto) 0.0 Abs Immat Gran (auto) 0.01 Absolute Neuts (auto) 2.2 Absolute Nucleated RBC 0.000 Nucleated RBC % (auto) 0.0 VBG pH 7.49 H VBG pCO2 26 VBG pO2 219 VBG HCO3 20 L VBG O2 Saturation 100.0 VBG Base Excess -1.9 Anion Gap 12 Estim Creat Clear Calc 50.7 Estimated GFR 48 POC Glucose 290 H Random Glucose 271 H Lactic Acid Calcium 8.3 L Total Bilirubin 0.7 Direct Bilirubin 0.2 AST 48 H ALT 23 Alkaline Phosphatase 151 H Ammonia 74 H Total Protein 6.6 Albumin 2.8 L Lipase 41 Beta-Hydroxybutyrate 0.10 Peritoneal WBC Peritoneal RBC Periton Neutrophils Periton Lymphocytes Peritoneal Monocytes Peritoneal Other Cells Stool Occult Blood Blood Type Antibody Screen 06/09/25 06/09/25 06/09/25 16:43 19:14 22:16 MCV MCH MCHC RDW Plt Count MPV Immature Gran % (Auto) Neut % (Auto) Lymph % (Auto) [place] % (Auto) Eos % (Auto) Baso % (Auto) Lymph # (Auto) [place] # (Auto) Eos # (Auto) Baso # (Auto) Abs Immat Gran (auto) Absolute Neuts (auto) Absolute Nucleated RBC Nucleated RBC % (auto) VBG pH VBG pCO2 VBG pO2 VBG HCO3 VBG O2 Saturation VBG Base Excess Anion Gap Estim Creat Clear Calc Estimated GFR POC Glucose Random Glucose Lactic Acid 1.0 Calcium Total Bilirubin Direct Bilirubin AST ALT Alkaline Phosphatase Ammonia Total Protein Albumin Lipase Beta-Hydroxybutyrate Peritoneal WBC 0.342 Peritoneal RBC < 0.002 Periton Neutrophils 18 Periton Lymphocytes 12 Peritoneal Monocytes 12 Peritoneal Other Cells 58 Stool Occult Blood POSITIVE Blood Type B Positive Antibody Screen NEGATIVE 06/09/25 06/10/25 06/10/25 22:27 07:16 11:28 MCV MCH MCHC RDW Plt Count MPV Immature Gran % (Auto) Neut % (Auto) Lymph % (Auto) [place] % (Auto) Eos % (Auto) Baso % (Auto) Lymph # (Auto) [place] # (Auto) Eos # (Auto) Baso # (Auto) Abs Immat Gran (auto) Absolute Neuts (auto) Absolute Nucleated RBC Nucleated RBC % (auto) VBG pH VBG pCO2 VBG pO2 VBG HCO3 VBG O2 Saturation VBG Base Excess Anion Gap Estim Creat Clear Calc Estimated GFR POC Glucose 140 H 171 H 151 H Random Glucose Lactic Acid Calcium Total Bilirubin Direct Bilirubin AST ALT Alkaline Phosphatase Ammonia Total Protein Albumin Lipase Beta-Hydroxybutyrate Peritoneal WBC Peritoneal RBC Periton Neutrophils Periton Lymphocytes Peritoneal Monocytes Peritoneal Other Cells Stool Occult Blood Blood Type Antibody Screen Microbiology Microbiology Results: Microbiology 06/09/25 19:14 Gram Stain - Final Abdominal Fluid Anaerobic Culture - Preliminary Body Fluid Culture - Preliminary No growth to date. Assessment and Plan (1) Cirrhosis of liver with ascites: Status: Acute Plan This is a 64-year-old female living in a senior living unable to provide HPI, past medical history or surgical history. 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 Patient was being picked up by the same EMS provider for an appointment with GI but noted that patient was extremely short of breath at rest without hypoxia. In addition they did a point of care and it was registering 398. EMS decided to take patient to the ED versus going to the appointment with GI. Blood glucose on arrival was 290. Patient's oxygenation was stable on room air. Patient noted to have significant ascites and was planned for a paracentesis on Saturday06/10/2025 as an outpatient. Patient does not have a PleurX drain in place. Per ED record patient initially was complaining of abdominal pain on arrival. Patient's baseline confused and unable to answer questions appropriately. motor vehicle parts interpreter required. HCP is invoked Ascites Secondary to cirrhosis of liver plan for paracentesis GI consult pending Possible SBP Evidence of possible SBP on CT scan Patient is afebrile, no nausea or vomiting Lactic acid pending No leukocytosis Continue empiric ceftriaxone Cirrhosis of the liver with esophageal varices/Positive stool for occult/ hepatic encephalopathy Patient is started on Protonix Patient also on octreotide GI consult pending H&H stable currently patient does not require transfusion Ammonia, elevated at 74 continue lactulose Continue rifaximin, spironolactone and lasix IDDM with hyperglycemia No evidence of DKA or HHS VBG reassuring hold Tresiba while NPO, convert to lantus when diet is advanced Continue sliding scale insulin Check A1c in the a.m. Thrombocytopenia/ pancytopenia Low platelets secondary to cirrhosis CBC daily If platelets fall below 20,000 consider transfusion No current spontaneous bleeding, bruising or petechiae INR is 1.3 Dementia/ schizoaffective disorder Patient currently baseline pleasantly confused No issues currently with agitation Continue Haldol at bedtime DVT prophylaxis: Held in the presence of low platelet count and possible GI bleed; boots Full Code status Quality Stroke Does the patient have a stroke diagnosis?: No Reason for No Anti-thrombotic by Day Two: Contraindicated VTE Prior VTE?: No VTE Risk Level:: Medical - moderate - high VTE Device Contraindication: N/A - Device Ordered VTE Drug Contraindication: Treatment Not Indicated
--- NOTE | 2025-06-10 15:17 | PM.GICN ---
History of Present Illness Data of Consult Service Date: 06/10/25 Requesting physician: [place] Gamble Primary Care Provider: Tono Nicole MD HPI Reason for consult: Cirrhosis, ? GI bleed 64-year-old female living in a [place] unable to provide HPI, past medical history or surgical history. Review of patient's medical records showed patient has a history of schizoaffective disorder, dementia, hepatic encephalopathy, thrombocytopenia secondary to liver failure, cirrhosis of the liver, esophageal varices, iron deficiency anemia, insulin-dependent diabetes brought in by EMS to [facility] on 06/09/25 with a blood sugar of 398 and shortness of breath at rest. Pt residing at [facility] for Patient was being picked up by the same EMS provider for an appointment with GI but noted that patient was extremely short of breath at rest without hypoxia. In addition they did a point of care and it was registering 398. EMS decided to take patient to the ED versus going to the appointment with GI. Blood glucose on arrival was 290. Patient's oxygenation was stable on room air. Patient noted to have significant ascites and was planned for a paracentesis on Saturday06/11/2025 as an outpatient. Patient does not have a PleurX drain in place. Per ED record patient initially was complaining of abdominal pain on arrival. Patient's is confused at baseline and unable to answer questions appropriately. manufacturing technician required. Patient was started on ceftriaxone for suspected SBP. GI is consulted for positive occult blood in the stool. Pt is followed in the GI clinic by Dr Roldan History obtained with the help of an [facility] manufacturing technician, Geovanny. Patient complains of nausea and abdominal pain. She also complains of passage of bright red blood per rectum She denies smoking or ETOH abuse. Patient states she lives with her daughter, Cathryn, who is her ROCKET SCIENTIST and healthcare proxy. Pt was admitted therapeutic paracentesis by IR and continued on ceftriaxone, Protonix and octreotide. Labs showed H&H 8.6 and 26.1, platelets 26,000. Patient overall has pancytopenia. INR 1.3. VBG reassuring pH 7.49, CO2 26, PO2 219 and bicarb 20. Renal function somewhat lower than baseline with a creatinine clearance of 50.7 and a GFR of 48. Creatinine 1.15, BUN 34. AST 48, ALT 23 and alk-phos 151. Ammonia is. 74 and patient is normally on lactulose. Troponin 3.7. Lipase 41 and beta hydroxybutyrate 0.10. Patient does not have evidence of HHS or DKA. 06/09/[address] SCAN SHOWED: Hepatic cirrhosis with moderate abdominal pelvic ascites. Moderate diffuse mesenteric stranding is present. Acute spontaneous peritonitis can not be excluded. Moderately distended urinary bladder. Emptying is suggested. PAST GI HISTORY BY REVIEW OF MEDICAL RECORDS: initially diagnosed with cirrhosis 3-4 years ago incidentally on ultrasound findings which was done for abdominal discomfort. Thought to be likely secondary to QURESHI / NAFLD. no significant history of alcohol use disorder. Hep serologies negative, however Hep B core antibody not available. Early 2021, patient developed ascites. Since then, she has had paracentesis multiple times. She also had a recent admission to [facility] last month for hepatic encephalopathy, and has also been started on lactulose since then. She also had a thoracentesis from the right side in the same admission. Per records 5.2L removed by para and 1500ml removed from thora. Fluid studies N/A. Relevant medications: Propranolol 10 mg t.i.d. Furosemide 40 mg once daily Spironolactone 100 mg once daily Lactulose 30 mL t.i.d. Recent endoscopy: March 2019 EGD LA grade A esophagitis, grade II varices Colonoscopy: Fair prep. 4 polyps including 10 mm sigmoid colon polyp. Path: T.A in sigmoid colon. Review of Systems Review of Systems: Yes all other systems are reviewed and are negative Neurologic: Reports confusion Psychiatric: Psychiatric: Reports confusion [facility] Past Medical History Medical History Seizure Schizoaffective disorder Diabetes Thrombocytopenia Hyperkalemia Esophageal varices determined by endoscopy Cirrhosis of liver with ascites Parkinson disease Hypertension Diabetes Family History Family History Father Colon cancer Mother Diabetes Colon polyps Daughter Lupus Surgical History Surgical History Hx of esophagogastroduodenoscopy Hx of colonoscopy Social History Social History Household Members: Family Housing: Apartment Housing Other:: Duplex Are you a primary managed care director to a significant other at home: No Do you presently have visiting nurse or other home services: No Alcohol intake: former Patient Tobacco Use Status: Former Tobacco user Tobacco use type: Cigarette e-Cigarette/Vaping Use: Former Use Second Hand Smoke Exposure: No service: No Current occupational status: unemployed and disabled Travel History Ebola Risk: Travel/Contact With Anyone From Affected Area/s: No Has Patient Experienced Ebola Symptoms: No Meds Allergies Allergy/AdvReac Type Severity Reaction Status Date / Time Penicillins Allergy Unknown HIVES Verified 06/09/25 15:19 Active Medications: Current Medications Acetaminophen (Acetaminophen 325 Mg Tablet) 650 mg PO Q6H PRN PRN Reason: Pain, Mild 1-3,fever,headache Last Admin: 06/10/25 12:15 Dose: 650 mg Albuterol/Ipratropium (Albuterol/Iprat 2.5/0.5mg 3 Ml Ampul.Neb) 3 ml INHALE Q4H PRN PRN Reason: Shortness of Breath/Wheezing Benztropine Mesylate (Benztropine Mesylate 0.5 Mg Tablet) 0.5 mg PO BEDTIME JOSEMANUEL Bisacodyl (Bisacodyl 10 Mg Supp.Rect) 10 mg MO DAILY PRN PRN Reason: constipation #2 Calcium Carbonate (Calcium Carbonate 750 Mg Tab.Chew) 750 mg PO Q4H PRN PRN Reason: Heartburn Ceftriaxone Sodium (Ceftriaxone Sodium 2 Gm Vial) 2 gm IVPUSH Q24H [facility] Dextrose (Dextrose 50 % 25 Gm/50 Ml Syringe) 25 gm IVPUSH Q15M PRN; Protocol PRN Reason: per Hypoglycemia Standing Ord. Furosemide (Furosemide 20 Mg Tablet) 60 mg PO DAILY [facility]; Protocol Glucose (Glucose Gel 15 Gm Gel..Gram.) 15 gm PO Q15M PRN; Protocol PRN Reason: per Hypoglycemia Standing Ord. Haloperidol (Haloperidol 5 Mg Tablet) 10 mg PO BID [facility] Octreotide Acetate 500 mcg/ (Sodium Chloride) 501 mls @ 50.1 mls/hr IVCONT .Q10H [facility] Last Admin: 06/10/25 05:33 Dose: 50 mcg/hr, 50.1 mls/hr Insulin Human Lispro (Insulin Lispro 100 Unit/Ml 3 Ml Vial) 0 unit SUBCUT QIDACHS [facility]; Protocol Last Admin: 06/10/25 12:04 Dose: 2 unit Lactulose (Lactulose 20 Gm/30 Ml Solution) 30 gm PO TID [facility] Magnesium Hydroxide (Milk Of Magnesia 30 Ml Oral.Susp) 30 ml PO DAILY PRN PRN Reason: Constipation Magnesium Hydroxide (Milk Of Magnesia 30 Ml Oral.Susp) 30 ml PO BEDTIME PRN PRN Reason: constipation #1 Melatonin (Melatonin 3 Mg Tablet) 6 mg PO BEDTIME PRN PRN Reason: Insomnia Ondansetron HCl (Ondansetron Hcl 4 Mg/2 Ml Vial) 4 mg IVPUSH Q8H PRN PRN Reason: Nausea and Vomiting Pantoprazole Sodium (Pantoprazole Sodium 40 Mg/10 Ml Vial) 40 mg IVPUSH BID@0630,1630 [facility] Last Admin: 06/10/25 05:17 Dose: 40 mg Polyethylene Glycol (Polyethylene Glycol 3350 17 Gm Powd.Pack) 17 gm PO DAILY PRN PRN Reason: Constipation Rifaximin (Rifaximin 550 Mg Tablet) 550 mg PO BID [facility] Senna (Sennosides 8.6 Mg Tablet) 8.6 mg PO BID PRN PRN Reason: Constipation Sodium Biphosphate/Sodium Phosphate (Sodium Phosphate,[place]-Dibasic 133 Ml Enema) 133 ml MO DAILY PRN PRN Reason: constipation #3 Sodium Chloride (0.9 % Sodium Chloride Flush 3 Ml Syringe) 3 ml IVFLUSH QSHIFT [facility] Last Admin: 06/10/25 07:52 Dose: Not Given Spironolactone (Spironolactone 25 Mg Tablet) 50 mg PO DAILY [facility]; Protocol Home Medications ?Medication ?Instructions ?Recorded ?Confirmed ?Last Taken ?Type benztropine 0.5 mg tablet 0.5 mg PO BEDTIME 08/17/20 06/09/25 Unknown History haloperidol 5 mg tablet 10 mg PO BID 08/17/20 06/09/25 05/14/25 08:00 History insulin lispro 100 unit/mL See Protocol subcut TID 08/17/20 06/09/25 05/14/25 08:00 History subcutaneous pen (Humalog KwikPen (U-100) Insulin) flash glucose sensor (FreeStyle #1 ea 05/01/23 11/27/24 Unknown History Gurpreet 2 Sensor kit) insulin degludec 200 unit/mL (3 62 unit subcut BEDTIME 05/01/23 06/09/25 05/14/25 08:00 History mL) subcutaneous pen (Tresiba FlexTouch U-200 insulin) blood-glucose meter (FreeStyle #1 ea 06/17/24 11/27/24 Unknown History Clymer Lite kit) ferrous gluconate 240 mg (27 mg 240 mg PO DAILY@0730 04/26/25 06/09/25 05/14/25 08:00 History iron) tablet levofloxacin 250 mg tablet 250 mg PO DAILY 04/26/25 06/09/25 05/14/25 08:00 History magnesium hydroxide 400 mg/5 mL 30 ml PO BEDTIME PRN constipation 04/26/25 06/09/25 Unknown History oral suspension (Milk of Magnesia) #1 sennosides 8.6 mg capsule (senna) 8.6 mg PO BID PRN Constipation 04/26/25 06/09/25 Unknown History acetaminophen 325 mg tablet 650 mg PO Q4H PRN Fever Or Pain 06/09/25 06/09/25 Unknown History acetaminophen 650 mg rectal 650 mg MO Q4H PRN Fever Or Pain 06/09/25 06/09/25 Unknown History suppository bisacodyl 10 mg rectal suppository 10 mg MO DAILY PRN constipation #2 06/09/25 06/09/25 Unknown History lactulose 10 gram/15 mL (15 mL) 30 g PO TID 06/09/25 06/09/25 Unknown History oral solution melatonin 3 mg tablet 3 mg PO BEDTIME PRN Sleep 06/09/25 06/09/25 Unknown History naloxone 4 mg/actuation nasal 4 mg intranasal Q3M PRN overdose 06/09/25 06/09/25 Unknown History spray (Narcan) sodium phosphates 19 gram-7 118 ml MO DAILY PRN constipation #3 06/09/25 06/09/25 Unknown History gram/118 mL enema (Fleet Enema) spironolactone 50 mg tablet 50 mg PO DAILY 06/09/25 06/09/25 Unknown History Physical Exam Vital Signs: Vital Signs: Last Vital Signs Temp 97.0 F 06/10/25 11:58 Pulse 83 06/10/25 11:58 Resp 20 06/10/25 11:58 BP 139/69 06/10/25 11:58 Pulse Ox 97 06/10/25 11:58 O2 Del Method Room Air 06/10/25 11:58 BMI result Body Mass Index 32.6 Const: General: no acute distress, confusion and ill appearing (Chronically ill-appearing) Nutritional Appearance: obese Orientation/consciousness: oriented to place, No oriented to time and confusion Limitations: language barrier HEENT: Head: Yes normal to inspection Ears: hearing grossly normal bilaterally Mouth: Normal oral and palatal mucosa present Eyes: Sclerae: sclerae normal Pupils: Equal, round and reactive pupils present Neck: Neck: Yes normal visual inspection Chest: Chest palpation & inspection: normal inspection of the chest Resp: Effort & Inspection: normal respiratory effort Auscultation: clear to auscultation bilaterally Cardio: Palpation: normal PMI Rate: regular rate Rhythm: regular rhythm Heart sounds: S1 normal heart sound present, S2 normal heart sound present and no murmurs GI: Inspection: Yes distended (Due to ascites) Palpation (GI): Soft to palpation, nontender and No hepatosplenomegaly present Auscultation: normal bowel sounds Rectal Exam - Female: deferred Skin: General skin exam: no rashes or lesions noted Neuro: General: oriented to place, No oriented to time, gait normal, moves all extremities and confusion Cranial nerves: Yes Equal, round and reactive pupils present Extrem: General: Yes no pedal edema and Yes other (No asterixis) Psych: Appearance: grossly normal Mental Status: mental status grossly normal Results Labs 06/10/25 15:19 06/10/25 15:20 Labs: Short CBC 06/09/25 Range/Units 15:42 WBC 3.3 L (4.8-10.8) X10*3/uL Hgb 8.6 L (12.0-16.0) g/dl Hct 26.1 L (37.0-47.0) % Plt Count 26 L (160-400) X10*3/uL BMP 06/09/25 15:42 Sodium 135 Potassium 5.1 Chloride 107 Carbon Dioxide 21 L BUN 34 H Creatinine 1.15 Calcium 8.3 L Liver Function 06/09/25 Range/Units 15:42 Total Bilirubin 0.7 (0.0-1.0) mg/dL Direct Bilirubin 0.2 (0.0-0.5) mg/dL AST 48 H (5-31) U/L ALT 23 (0-31) U/L Alkaline Phosphatase 151 H (39-117) U/L Albumin 2.8 L (3.5-5.0) g/dL Microbiology Microbiology Results: Microbiology 06/09/25 19:14 Abdominal Fluid Gram Stain - Final 06/09/25 19:14 Abdominal Fluid Anaerobic Culture - Preliminary 06/09/25 19:14 Abdominal Fluid Body Fluid Culture - Preliminary No growth to date. Assessment and Plan (1) Thrombocytopenia: Status: Chronic (2) Cirrhosis of liver with ascites: Status: Acute (3) Esophageal varices determined by endoscopy: Status: Acute (4) Hepatic encephalopathy: Status: Acute Plan 64 year old Czech-speaking female with schizoaffective disorder, dementia, ESLD complicated by ascites, hepatic encephalopathy, pancytopenia with low platelet count, esophageal varices, iron deficiency anemia, insulin-dependent diabetes admitted to [facility] on 06/09/25 with a blood sugar of 398, SOB and a change in MS. 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 Pt complains of rectal bleeding and stool occult blood was positive on admission AF analysis was negative for SBP (performed after pt had received IV antibiotics). Pt was prev referred to [facility] hepatology clinic for transplant eval but due to multiple no shows this is on hold for now RECOMMENDATIONS: 1. Agree with IV PPI, octreoride and ceftriaxone for suspected SBP (Of note, pt has a hx of SBP and needs to be on SBP prophylaxis with Bactrim at discharge) 2. Continue lactulose and rifaximin for hepatic encephalopathy 3. Continue Lasix 60 mg and spironolactone 50 mg daily for ascites and pleural effusion 4. Further evaluation with EGD and Flexible sigmoidoscopy on 06/11/25 Procedures Date of Service Date of Service: 06/10/25
[2025-06-10 15:41] LABS: Glucose, Whole Blood 133 mg/dL (60-115)
[2025-06-10 15:41] LABS: Hematocrit 26.3 % (37.0-47.0); Hemoglobin 9.1 g/dl (12.0-16.0); Mean Corpuscular HGB Conc 34.6 g/dl (31.0-35.0); Mean Corpuscular Hemoglobin 31.0 pg (27.0-33.0); Mean Corpuscular Volume 89.5 fL (80.0-98.0); NRBC Abs Auto 0.000 X10*3/uL (0.0-0.012); NRBC Pct Auto 0.0 /100WBC (0.0-0.2); PLT CLUMP 1; Red Blood Count 2.94 X10*6/uL (4.20-5.50)
[2025-06-10 15:43] LABS: White Blood Count 4.3 X10*3/uL (4.8-10.8)
[2025-06-10 15:50] VITALS: BP 143/63; PULSE 81; RESP 20; TEMP 36.1; O2SAT 98
[2025-06-10 15:53] LABS: Anion Gap 11 (12-20); Blood Urea Nitrogen 30 mg/dL (9-16); Calcium 8.1 mg/dL (8.4-10.2); Carbon Dioxide 19 mmol/L (22-29); Chloride 113 mmol/L (96-108); Creatinine Clr Calc Pharmacy 58.3; Estimated Glomerular Filt Rate 55; Potassium 4.8 mmol/L (3.3-5.1); Sodium 138 mmol/L (135-145)
[2025-06-10 16:29] LABS: Platelet Count 25 X10*3/uL (160-400)
[2025-06-10] MEDS: 0.9 % Sodium Chloride Flush 3 ML SYRINGE IVFLUSH ×2 (16:43→20:14)
[2025-06-10 17:17] LABS: Glucose, Whole Blood 153 mg/dL (60-115)
[2025-06-10 20:00] VITALS: BP 180/76; PULSE 91; RESP 20; TEMP 36.7; O2SAT 100
[2025-06-10 21:03] LABS: Glucose, Whole Blood 309 mg/dL (60-115)
[2025-06-11] VITALS (15 sets, daily range): BP systolic 126–157; BP diastolic 59–75; PULSE 80–101; RESP 16–20; TEMP 35.9–36.6; O2SAT 96–99
[2025-06-11 07:40] LABS: Glucose, Whole Blood 182 mg/dL (60-115)
--- NOTE | 2025-06-11 08:03 | HO.ANESPROP2 ---
HPI - Anesthesia Eval Consult details Narrative: 64 yr old Romanian-speaking female, unable to consent for herself for upper endoscopy Esophageal varices Cirrhosis of liver with ascities Anemia: Hgb stable at 9.1, will be updated [facility] Active Problems Active Problems: All Active Problems Ascites (Acute) Chronic anemia (Acute) Upper respiratory infection (Acute) Closed fracture of left proximal humerus (Acute) Cognitive and behavioral changes (Acute) Fall (Acute) Ascites (Acute) Personal history of colonic polyps (Acute) Hepatic encephalopathy (Acute) Hydrothorax (Acute) longterm current use of diuretic (Acute) Gastropathy (Acute) Thrombocytopenia (Chronic) Cirrhosis of liver with ascites (Acute) Esophageal varices determined by endoscopy (Acute) Past Medical History Medical History Seizure Schizoaffective disorder Diabetes Thrombocytopenia Hyperkalemia Esophageal varices determined by endoscopy Cirrhosis of liver with ascites Parkinson disease Hypertension Diabetes Family History Family History Father Colon cancer Mother Diabetes Colon polyps Daughter Lupus Surgical History Surgical History Hx of esophagogastroduodenoscopy Hx of colonoscopy Social History Social History Household Members: Family Housing: Apartment Housing Other:: Duplex Are you a primary child care provider to a significant other at home: No Do you presently have visiting nurse or other home services: No Alcohol intake: former Patient Tobacco Use Status: Former Tobacco user Tobacco use type: Cigarette e-Cigarette/Vaping Use: Former Use Second Hand Smoke Exposure: No service: No Current occupational status: unemployed and disabled Meds Allergies Allergy/AdvReac Type Severity Reaction Status Date / Time Penicillins Allergy Unknown HIVES Verified 06/09/25 15:19 Active Medications: Current Medications Acetaminophen (Acetaminophen 325 Mg Tablet) 650 mg PO Q6H PRN PRN Reason: Pain, Mild 1-3,fever,headache Last Admin: 06/10/25 12:15 Dose: 650 mg Albuterol/Ipratropium (Albuterol/Iprat 2.5/0.5mg 3 Ml Ampul.Neb) 3 ml INHALE Q4H PRN PRN Reason: Shortness of Breath/Wheezing Benztropine Mesylate (Benztropine Mesylate 0.5 Mg Tablet) 0.5 mg PO BEDTIME [facility] Last Admin: 06/10/25 20:08 Dose: 0.5 mg Bisacodyl (Bisacodyl 10 Mg Supp.Rect) 10 mg AL DAILY PRN PRN Reason: constipation #2 Calcium Carbonate (Calcium Carbonate 750 Mg Tab.Chew) 750 mg PO Q4H PRN PRN Reason: Heartburn Ceftriaxone Sodium (Ceftriaxone Sodium 2 Gm Vial) 2 gm IVPUSH Q24H [facility] Last Admin: 06/10/25 18:17 Dose: 2 gm Dextrose (Dextrose 50 % 25 Gm/50 Ml Syringe) 25 gm IVPUSH Q15M PRN; Protocol PRN Reason: per Hypoglycemia Standing Ord. Furosemide (Furosemide 20 Mg Tablet) 60 mg PO DAILY [facility]; Protocol Glucose (Glucose Gel 15 Gm Gel..Gram.) 15 gm PO Q15M PRN; Protocol PRN Reason: per Hypoglycemia Standing Ord. Haloperidol (Haloperidol 5 Mg Tablet) 10 mg PO BID [facility] Last Admin: 06/10/25 20:08 Dose: 10 mg Octreotide Acetate 500 mcg/ (Sodium Chloride) 501 mls @ 50.1 mls/hr IVCONT .Q10H [facility] Last Admin: 06/11/25 02:00 Dose: 50 mcg/hr, 50.1 mls/hr Insulin Human Lispro (Insulin Lispro 100 Unit/Ml 3 Ml Vial) 0 unit SUBCUT QIDACHS [facility]; Protocol Last Admin: 06/10/25 21:15 Dose: 8 unit Lactulose (Lactulose 20 Gm/30 Ml Solution) 30 gm PO TID [facility] Last Admin: 06/10/25 20:12 Dose: 30 gm Magnesium Hydroxide (Milk Of Magnesia 30 Ml Oral.Susp) 30 ml PO DAILY PRN PRN Reason: Constipation Magnesium Hydroxide (Milk Of Magnesia 30 Ml Oral.Susp) 30 ml PO BEDTIME PRN PRN Reason: constipation #1 Melatonin (Melatonin 3 Mg Tablet) 6 mg PO BEDTIME PRN PRN Reason: Insomnia Last Admin: 06/10/25 20:08 Dose: 6 mg Naloxone HCl (Naloxone Hcl 0.4 Mg/Ml Vial) 0.04 mg IVPUSH Q5M PRN PRN Reason: Excessive sedation or RR < 8 Ondansetron HCl (Ondansetron Hcl 4 Mg/2 Ml Vial) 4 mg IVPUSH Q8H PRN PRN Reason: Nausea and Vomiting Pantoprazole Sodium (Pantoprazole Sodium 40 Mg/10 Ml Vial) 40 mg IVPUSH BID@0630,1630 [facility] Last Admin: 06/11/25 05:54 Dose: 40 mg Polyethylene Glycol (Polyethylene Glycol 3350 17 Gm Powd.Pack) 17 gm PO DAILY PRN PRN Reason: Constipation Rifaximin (Rifaximin 550 Mg Tablet) 550 mg PO BID [facility] Last Admin: 06/10/25 20:08 Dose: 550 mg Senna (Sennosides 8.6 Mg Tablet) 8.6 mg PO BID PRN PRN Reason: Constipation Sodium Biphosphate/Sodium Phosphate (Sodium Phosphate,[place]-Dibasic 133 Ml Enema) 133 ml AL DAILY PRN PRN Reason: constipation #3 Sodium Chloride (0.9 % Sodium Chloride Flush 3 Ml Syringe) 3 ml IVFLUSH QSHIFT [facility] Last Admin: 06/10/25 20:14 Dose: 3 ml Spironolactone (Spironolactone 25 Mg Tablet) 50 mg PO DAILY [facility]; Protocol Home Medications ?Medication ?Instructions ?Recorded ?Confirmed ?Last Taken ?Type benztropine 0.5 mg tablet 0.5 mg PO BEDTIME 08/17/20 06/09/25 Unknown History haloperidol 5 mg tablet 10 mg PO BID 08/17/20 06/09/25 05/14/25 08:00 History insulin lispro 100 unit/mL See Protocol subcut TID 08/17/20 06/09/25 05/14/25 08:00 History subcutaneous pen (Humalog KwikPen (U-100) Insulin) flash glucose sensor (FreeStyle #1 ea 05/01/23 11/27/24 Unknown History Gurpreet 2 Sensor kit) insulin degludec 200 unit/mL (3 62 unit subcut BEDTIME 05/01/23 06/09/25 05/14/25 08:00 History mL) subcutaneous pen (Tresiba FlexTouch U-200 insulin) blood-glucose meter (FreeStyle #1 ea 06/17/24 11/27/24 Unknown History [place] Lite kit) ferrous gluconate 240 mg (27 mg 240 mg PO DAILY@0730 04/26/25 06/09/25 05/14/25 08:00 History iron) tablet levofloxacin 250 mg tablet 250 mg PO DAILY 04/26/25 06/09/25 05/14/25 08:00 History magnesium hydroxide 400 mg/5 mL 30 ml PO BEDTIME PRN constipation 04/26/25 06/09/25 Unknown History oral suspension (Milk of Magnesia) #1 sennosides 8.6 mg capsule (senna) 8.6 mg PO BID PRN Constipation 04/26/25 06/09/25 Unknown History acetaminophen 325 mg tablet 650 mg PO Q4H PRN Fever Or Pain 06/09/25 06/09/25 Unknown History acetaminophen 650 mg rectal 650 mg AL Q4H PRN Fever Or Pain 06/09/25 06/09/25 Unknown History suppository bisacodyl 10 mg rectal suppository 10 mg AL DAILY PRN constipation #2 06/09/25 06/09/25 Unknown History lactulose 10 gram/15 mL (15 mL) 30 g PO TID 06/09/25 06/09/25 Unknown History oral solution melatonin 3 mg tablet 3 mg PO BEDTIME PRN Sleep 06/09/25 06/09/25 Unknown History naloxone 4 mg/actuation nasal 4 mg intranasal Q3M PRN overdose 06/09/25 06/09/25 Unknown History spray (Narcan) sodium phosphates 19 gram-7 118 ml AL DAILY PRN constipation #3 06/09/25 06/09/25 Unknown History gram/118 mL enema (Fleet Enema) spironolactone 50 mg tablet 50 mg PO DAILY 06/09/25 06/09/25 Unknown History Exam Height,Weight and Vital Signs: Height 5 ft 3 in Weight 83.4 kg Last Vital Signs Temp 97.2 F 06/11/25 07:11 Pulse 83 06/11/25 07:11 Resp 17 06/11/25 07:11 BP 126/63 06/11/25 07:11 Pulse Ox 97 06/11/25 07:11 O2 Del Method Room Air 06/11/25 07:11 Pertinent Lab Results Pertinent Lab Results: Laboratory Tests 06/09/25 06/09/25 06/09/25 15:09 15:42 15:55 WBC 3.3 L RBC 2.83 L Hgb 8.6 L Hct 26.1 L MCV 92.2 MCH 30.4 MCHC 33.0 RDW 14.6 Plt Count 26 L MPV 12.3 Immature Gran % (Auto) 0.3 Neut % (Auto) 65.2 Lymph % (Auto) 11.5 L [place] % (Auto) 8.5 Eos % (Auto) 13.9 H Baso % (Auto) 0.6 Lymph # (Auto) 0.4 L [place] # (Auto) 0.3 Eos # (Auto) 0.5 H Baso # (Auto) 0.0 Abs Immat Gran (auto) 0.01 Absolute Neuts (auto) 2.2 Absolute Nucleated RBC 0.000 Nucleated RBC % (auto) 0.0 VBG pH VBG pCO2 VBG pO2 VBG HCO3 VBG O2 Saturation VBG Base Excess Sodium 135 Potassium 5.1 Chloride 107 Carbon Dioxide 21 L Anion Gap 12 BUN 34 H Creatinine 1.15 Estim Creat Clear Calc 50.7 Estimated GFR 48 POC Glucose 290 H Random Glucose 271 H Lactic Acid Calcium 8.3 L Total Bilirubin 0.7 Direct Bilirubin 0.2 AST 48 H ALT 23 Alkaline Phosphatase 151 H Ammonia 74 H Troponin I High Sens 3.7 Total Protein 6.6 Albumin 2.8 L Lipase 41 Beta-Hydroxybutyrate 0.10 Peritoneal WBC Peritoneal RBC Periton Neutrophils Periton Lymphocytes Peritoneal Monocytes Peritoneal Other Cells Stool Occult Blood Blood Type Antibody Screen 06/09/25 06/09/25 06/09/25 16:02 16:43 19:14 WBC RBC Hgb Hct MCV MCH MCHC RDW Plt Count MPV Immature Gran % (Auto) Neut % (Auto) Lymph % (Auto) [place] % (Auto) Eos % (Auto) Baso % (Auto) Lymph # (Auto) [place] # (Auto) Eos # (Auto) Baso # (Auto) Abs Immat Gran (auto) Absolute Neuts (auto) Absolute Nucleated RBC Nucleated RBC % (auto) VBG pH 7.49 H VBG pCO2 26 VBG pO2 219 VBG HCO3 20 L VBG O2 Saturation 100.0 VBG Base Excess -1.9 Sodium Potassium Chloride Carbon Dioxide Anion Gap BUN Creatinine Estim Creat Clear Calc Estimated GFR POC Glucose Random Glucose Lactic Acid Calcium Total Bilirubin Direct Bilirubin AST ALT Alkaline Phosphatase Ammonia Troponin I High Sens Total Protein Albumin Lipase Beta-Hydroxybutyrate Peritoneal WBC 0.342 Peritoneal RBC < 0.002 Periton Neutrophils 18 Periton Lymphocytes 12 Peritoneal Monocytes 12 Peritoneal Other Cells 58 Stool Occult Blood POSITIVE Blood Type Antibody Screen 06/09/25 06/09/25 06/10/25 22:16 22:27 07:16 WBC RBC Hgb Hct MCV MCH MCHC RDW Plt Count MPV Immature Gran % (Auto) Neut % (Auto) Lymph % (Auto) [place] % (Auto) Eos % (Auto) Baso % (Auto) Lymph # (Auto) [place] # (Auto) Eos # (Auto) Baso # (Auto) Abs Immat Gran (auto) Absolute Neuts (auto) Absolute Nucleated RBC Nucleated RBC % (auto) VBG pH VBG pCO2 VBG pO2 VBG HCO3 VBG O2 Saturation VBG Base Excess Sodium Potassium Chloride Carbon Dioxide Anion Gap BUN Creatinine Estim Creat Clear Calc Estimated GFR POC Glucose 140 H 171 H Random Glucose Lactic Acid 1.0 Calcium Total Bilirubin Direct Bilirubin AST ALT Alkaline Phosphatase Ammonia Troponin I High Sens Total Protein Albumin Lipase Beta-Hydroxybutyrate Peritoneal WBC Peritoneal RBC Periton Neutrophils Periton Lymphocytes Peritoneal Monocytes Peritoneal Other Cells Stool Occult Blood Blood Type B Positive Antibody Screen NEGATIVE 06/10/25 06/10/25 06/10/25 11:28 15:19 15:20 WBC 4.3 L RBC 2.94 L Hgb 9.1 L Hct 26.3 L MCV 89.5 MCH 31.0 MCHC 34.6 RDW 14.6 Plt Count 25 L MPV 12.2 Immature Gran % (Auto) Neut % (Auto) Lymph % (Auto) [place] % (Auto) Eos % (Auto) Baso % (Auto) Lymph # (Auto) [place] # (Auto) Eos # (Auto) Baso # (Auto) Abs Immat Gran (auto) Absolute Neuts (auto) Absolute Nucleated RBC 0.000 Nucleated RBC % (auto) 0.0 VBG pH VBG pCO2 VBG pO2 VBG HCO3 VBG O2 Saturation VBG Base Excess Sodium 138 Potassium 4.8 Chloride 113 H Carbon Dioxide 19 L Anion Gap 11 L BUN 30 H Creatinine 1.01 Estim Creat Clear Calc 58.3 Estimated GFR 55 POC Glucose 151 H Random Glucose 138 H Lactic Acid Calcium 8.1 L Total Bilirubin Direct Bilirubin AST ALT Alkaline Phosphatase Ammonia Troponin I High Sens Total Protein Albumin Lipase Beta-Hydroxybutyrate Peritoneal WBC Peritoneal RBC Periton Neutrophils Periton Lymphocytes Peritoneal Monocytes Peritoneal Other Cells Stool Occult Blood Blood Type Antibody Screen 06/10/25 06/10/25 06/10/25 15:26 17:14 20:58 WBC RBC Hgb Hct MCV MCH MCHC RDW Plt Count MPV Immature Gran % (Auto) Neut % (Auto) Lymph % (Auto) [place] % (Auto) Eos % (Auto) Baso % (Auto) Lymph # (Auto) [place] # (Auto) Eos # (Auto) Baso # (Auto) Abs Immat Gran (auto) Absolute Neuts (auto) Absolute Nucleated RBC Nucleated RBC % (auto) VBG pH VBG pCO2 VBG pO2 VBG HCO3 VBG O2 Saturation VBG Base Excess Sodium Potassium Chloride Carbon Dioxide Anion Gap BUN Creatinine Estim Creat Clear Calc Estimated GFR POC Glucose 133 H 153 H 309 H Random Glucose Lactic Acid Calcium Total Bilirubin Direct Bilirubin AST ALT Alkaline Phosphatase Ammonia Troponin I High Sens Total Protein Albumin Lipase Beta-Hydroxybutyrate Peritoneal WBC Peritoneal RBC Periton Neutrophils Periton Lymphocytes Peritoneal Monocytes Peritoneal Other Cells Stool Occult Blood Blood Type Antibody Screen 06/11/25 07:30 WBC RBC Hgb Hct MCV MCH MCHC RDW Plt Count MPV Immature Gran % (Auto) Neut % (Auto) Lymph % (Auto) [place] % (Auto) Eos % (Auto) Baso % (Auto) Lymph # (Auto) [place] # (Auto) Eos # (Auto) Baso # (Auto) Abs Immat Gran (auto) Absolute Neuts (auto) Absolute Nucleated RBC Nucleated RBC % (auto) VBG pH VBG pCO2 VBG pO2 VBG HCO3 VBG O2 Saturation VBG Base Excess Sodium Potassium Chloride Carbon Dioxide Anion Gap BUN Creatinine Estim Creat Clear Calc Estimated GFR POC Glucose 182 H Random Glucose Lactic Acid Calcium Total Bilirubin Direct Bilirubin AST ALT Alkaline Phosphatase Ammonia Troponin I High Sens Total Protein Albumin Lipase Beta-Hydroxybutyrate Peritoneal WBC Peritoneal RBC Periton Neutrophils Periton Lymphocytes Peritoneal Monocytes Peritoneal Other Cells Stool Occult Blood Blood Type Antibody Screen Narrative Narrative: EKG 05/2025 Vent. Rate : 83 BPM Atrial Rate : 83 BPM P-R Int : 134 ms QRS Dur : 114 ms QT Int : 402 ms P-R-T Axes : 50 39 23 degrees QTcB Int : 472 ms Sinus rhythm with Premature supraventricular complexes Incomplete right bundle branch block Borderline ECG When compared with ECG of 13-Apr-2025 23:47, Premature supraventricular complexes are now Present Procedure Date: 06/25/2023 Procedure Type: Transthoracic Echocardiogram Location: OP Height: 157.48 cm Weight: 83.01 kg BSA: 1.84 m2 Heart Rate: bpm BP: 124 / 80 mmHg Leadership Development Instructor: VH Referring MD: Bobbi Roldan MD Soa Architect: Steffen Fuller MD Symptoms: K74.60 - Unspecified cirrhosis of liver R18.8 other Acites Study Quality: Good ECG Rhythm: Sinus Conclusions: - 1. Normal LV systolic function with normal diastolic filling pattern 2. Normal cardiac valvular Dopplers 3. Normal RV systolic pressure 4. No gross pericardial effusion Airway Mallampati Class: Patient Non-Cooperative
[2025-06-11 09:13] LABS: Hematocrit 22.9 % (37.0-47.0); Hemoglobin 7.9 g/dl (12.0-16.0); Mean Corpuscular HGB Conc 34.5 g/dl (31.0-35.0); Mean Corpuscular Hemoglobin 31.0 pg (27.0-33.0); Mean Corpuscular Volume 89.8 fL (80.0-98.0); NRBC Abs Auto 0.000 X10*3/uL (0.0-0.012); NRBC Pct Auto 0.0 /100WBC (0.0-0.2); Red Blood Count 2.55 X10*6/uL (4.20-5.50); White Blood Count 3.1 X10*3/uL (4.8-10.8)
[2025-06-11 09:17] LABS: Platelet Count 23 X10*3/uL (160-400)
[2025-06-11] MEDS: 0.9 % Sodium Chloride Flush 3 ML SYRINGE IVFLUSH ×2 (09:22→21:27)
[2025-06-11 09:25] LABS: INTERNATIONAL NORM RATIO 1.3 (0.9-1.1); Prothrombin Time 15.4 SEC (10.9-12.4)
[2025-06-11 09:26] LABS: Anion Gap 12 (12-20); Blood Urea Nitrogen 28 mg/dL (9-16); Calcium 7.6 mg/dL (8.4-10.2); Carbon Dioxide 17 mmol/L (22-29); Chloride 116 mmol/L (96-108); Creatinine Clr Calc Pharmacy 56.6; Estimated Glomerular Filt Rate 54; Potassium 4.6 mmol/L (3.3-5.1); Sodium 140 mmol/L (135-145)
[2025-06-11 10:31] LABS: Hemoglobin A1C 216.9586 umol/L; Total Hemoglobin (HGBA1C) 4158.2481 umol/L
[2025-06-11 11:35] LABS: Glucose, Whole Blood 210 mg/dL (60-115)
[2025-06-11 12:05] LABS: Albumin Peritoneal Fluid 0.5
--- NOTE | 2025-06-11 12:12 | MHC.CM.PN ---
EMR REVIEWED, PER HOSPITALIST PLAN FOR EGD, PARACENTESIS AND TRANSFUSION TODAY, NO PLAN FOR DC AT THIS TIME, CM WILL CONT TO FOLLOW DC NEEDS.
[2025-06-11 14:12] LABS: Hematocrit 26.1 % (37.0-47.0); Hemoglobin 9.1 g/dl (12.0-16.0); Mean Corpuscular HGB Conc 34.9 g/dl (31.0-35.0); Mean Corpuscular Hemoglobin 31.6 pg (27.0-33.0); Mean Corpuscular Volume 90.6 fL (80.0-98.0); NRBC Abs Auto 0.000 X10*3/uL (0.0-0.012); NRBC Pct Auto 0.0 /100WBC (0.0-0.2); Platelet Count 22 X10*3/uL (160-400); Red Blood Count 2.88 X10*6/uL (4.20-5.50); White Blood Count 3.9 X10*3/uL (4.8-10.8)
--- NOTE | 2025-06-11 14:19 | MHC.SHP ---
Pre-Procedural Eval Section A - 24 Hr Update-Section A only Date of Service: 06/11/25 The patient is an INPATIENT: Yes Changes since office visit: Yes New Medical Problems, Yes Changes in Medication and Yes Patient answered all questions; No Cold of Flu in the past 2 weeks The patient has been examined within 24 hours of the surgical procedure. The History & Physical has been completed within 30 days and I have reviewed it.: Yes Section B - Complete if H&P > 30 days Chief Complaint: Stool Occult positive Allergies: Allergies Allergy/AdvReac Type Severity Reaction Status Date / Time Penicillins Allergy Unknown HIVES Verified 06/09/25 15:19 Plan Diagnosis/Plan: Unchanged I have reviewed the history and physical and performed a pertinent physical examination on my patient. No changes have occurred unless specified. Time Spent With Patient Time: Total time managing care of this patient today ____ minutes.
--- NOTE | 2025-06-11 14:36 | PC.NURSE ---
Patient procedure cancelled per Dr. Mobley and Dr. Avilez. Patient platelets result is lower than a.m. draw after platelet transfusions. Patient still bleeding from 1130 POC check to right middle finger. pressure applied and wrapped with gauze and taped. unsafe to do procedure right now. floor rn updated. dr. mobley to speak with family.
[2025-06-11 16:06] LABS: Glucose, Whole Blood 150 mg/dL (60-115)
--- NOTE | 2025-06-11 16:49 | HO.PM.IMPN ---
Subjective Subjective Date of Service: 06/11/25 Interval History: transfused 3u pRBCs with no apparent chnage in platelet count; noted to have constant oozing from fingerstick so EGD canceled having brown grossly nonbloody stools pt quite confused This history was taken in Korean from the patient. Review of Systems Review of Systems: Yes Unobtainable due to mental status Physical Exam Vital Signs: Vital Signs: Last Vital Signs Temp 96.9 F 06/11/25 15:33 Pulse 89 06/11/25 15:33 Resp 18 06/11/25 15:33 BP 136/65 06/11/25 15:33 Pulse Ox 98 06/11/25 15:33 O2 Del Method Room Air 06/11/25 15:33 BMI result Body Mass Index 32.6 Gen: in no acute distress HEENT: sclera anicteric, moist mucus membranes Neck: supple Lungs: clear to auscultation bilaterally Heart: regular rate and rhythm, no murmurs Abd: soft, non-tender, non-distended Ext: no edema Skin: warm/well-perfused Neuro: alert, mildly confused, no asterixis Psych: appropriate affect Objective Data Active Medications Acetaminophen (Acetaminophen 325 Mg Tablet) 650 mg PO Q6H PRN PRN Reason: Pain, Mild 1-3,fever,headache Last Admin: 06/10/25 12:15 Dose: 650 mg Documented By: CANDE Albuterol/Ipratropium (Albuterol/Iprat 2.5/0.5mg 3 Ml Ampul.Neb) 3 ml INHALE Q4H PRN PRN Reason: Shortness of Breath/Wheezing Benztropine Mesylate (Benztropine Mesylate 0.5 Mg Tablet) 0.5 mg PO BEDTIME [facility] Last Admin: 06/10/25 20:08 Dose: 0.5 mg Documented By: LIT Bisacodyl (Bisacodyl 10 Mg Supp.Rect) 10 mg [place] DAILY PRN PRN Reason: constipation #2 Calcium Carbonate (Calcium Carbonate 750 Mg Tab.Chew) 750 mg PO Q4H PRN PRN Reason: Heartburn Ceftriaxone Sodium (Ceftriaxone Sodium 2 Gm Vial) 2 gm IVPUSH Q24H [facility] Last Admin: 06/10/25 18:17 Dose: 2 gm Documented By: HO.MALDONA Dextrose (Dextrose 50 % 25 Gm/50 Ml Syringe) 25 gm IVPUSH Q15M PRN; Protocol PRN Reason: per Hypoglycemia Standing Ord. Furosemide (Furosemide 20 Mg Tablet) 60 mg PO DAILY [facility]; Protocol Last Admin: 06/11/25 09:22 Dose: 60 mg Documented By: SOTO Glucose (Glucose Gel 15 Gm Gel..Gram.) 15 gm PO Q15M PRN; Protocol PRN Reason: per Hypoglycemia Standing Ord. Haloperidol (Haloperidol 5 Mg Tablet) 10 mg PO BID [facility] Last Admin: 06/11/25 09:27 Dose: Not Given Documented By: SOTO Non-Admin Reason: Physician Approved Octreotide Acetate 500 mcg/ (Sodium Chloride) 501 mls @ 50.1 mls/hr IVCONT .Q10H [facility] Last Admin: 06/11/25 12:08 Dose: 50 mcg/hr, 50.1 mls/hr Documented By: SOTO Insulin Human Lispro (Insulin Lispro 100 Unit/Ml 3 Ml Vial) 0 unit SUBCUT QIDACHS [facility]; Protocol Last Admin: 06/11/25 16:43 Dose: Not Given Documented By: SOTO Non-Admin Reason: No Insulin Coverage Lactulose (Lactulose 20 Gm/30 Ml Solution) 30 gm PO TID [facility] Last Admin: 06/11/25 14:55 Dose: 30 gm Documented By: SOTO Magnesium Hydroxide (Milk Of Magnesia 30 Ml Oral.Susp) 30 ml PO DAILY PRN PRN Reason: Constipation Magnesium Hydroxide (Milk Of Magnesia 30 Ml Oral.Susp) 30 ml PO BEDTIME PRN PRN Reason: constipation #1 Melatonin (Melatonin 3 Mg Tablet) 6 mg PO BEDTIME PRN PRN Reason: Insomnia Last Admin: 06/10/25 20:08 Dose: 6 mg Documented By: JEREMY-DESSK Naloxone HCl (Naloxone Hcl 0.4 Mg/Ml Vial) 0.04 mg IVPUSH Q5M PRN PRN Reason: Excessive sedation or RR < 8 Ondansetron HCl (Ondansetron Hcl 4 Mg/2 Ml Vial) 4 mg IVPUSH Q8H PRN PRN Reason: Nausea and Vomiting Pantoprazole Sodium (Pantoprazole Sodium 40 Mg/10 Ml Vial) 40 mg IVPUSH BID@0630,1630 [facility] Last Admin: 06/11/25 05:54 Dose: 40 mg Documented By: JEREMY-ALCIDES Polyethylene Glycol (Polyethylene Glycol 3350 17 Gm Powd.Pack) 17 gm PO DAILY PRN PRN Reason: Constipation Rifaximin (Rifaximin 550 Mg Tablet) 550 mg PO BID [facility] Last Admin: 06/11/25 09:22 Dose: 550 mg Documented By: SOTO Senna (Sennosides 8.6 Mg Tablet) 8.6 mg PO BID PRN PRN Reason: Constipation Sodium Biphosphate/Sodium Phosphate (Sodium Phosphate,[place]-Dibasic 133 Ml Enema) 133 ml [place] DAILY PRN PRN Reason: preop for flexible sigmoidoscopy Sodium Biphosphate/Sodium Phosphate (Sodium Phosphate,[place]-Dibasic 133 Ml Enema) 133 ml OH ONCE PRN PRN Reason: Pre-Op Surgical Prep Last Admin: 06/11/25 13:33 Dose: 133 ml Documented By: SOTO Sodium Chloride (0.9 % Sodium Chloride Flush 3 Ml Syringe) 3 ml IVFLUSH QSHIFT [facility] Last Admin: 06/11/25 09:22 Dose: 3 ml Documented By: SOTO Spironolactone (Spironolactone 25 Mg Tablet) 50 mg PO DAILY [facility]; Protocol Last Admin: 06/11/25 09:22 Dose: 50 mg Documented By: SOTO Labs 06/11/25 14:05 06/11/25 09:03 Labs: Laboratory Results - last 24 hr 06/09/25 06/09/25 06/10/25 19:14 22:16 17:14 MCV MCH MCHC RDW Plt Count MPV Absolute Nucleated RBC Nucleated RBC % (auto) PT INR Anion Gap Estim Creat Clear Calc Estimated GFR POC Glucose 153 H Random Glucose Estimat Average Glucose Hemoglobin A1c % Calcium Peritoneal Tot Protein 0.9 Peritoneal Albumin 0.5 Peritoneal LDH 36 Peritoneal Glucose 252 Blood Type B Positive Antibody Screen NEGATIVE 06/10/25 06/11/25 06/11/25 20:58 07:30 09:03 MCV 89.8 MCH 31.0 MCHC 34.5 RDW 14.6 Plt Count 23 L MPV 10.2 Absolute Nucleated RBC 0.000 Nucleated RBC % (auto) 0.0 PT 15.4 H INR 1.3 H Anion Gap 12 Estim Creat Clear Calc 56.6 Estimated GFR 54 POC Glucose 309 H 182 H Random Glucose 208 H Estimat Average Glucose 151 Hemoglobin A1c % 6.9 H Calcium 7.6 L D Peritoneal Tot Protein Peritoneal Albumin Peritoneal LDH Peritoneal Glucose Blood Type Antibody Screen 06/11/25 06/11/25 06/11/25 11:31 14:05 16:00 MCV 90.6 MCH 31.6 MCHC 34.9 RDW 14.5 Plt Count 22 L MPV 11.0 Absolute Nucleated RBC 0.000 Nucleated RBC % (auto) 0.0 PT INR Anion Gap Estim Creat Clear Calc Estimated GFR POC Glucose 210 H 150 H Random Glucose Estimat Average Glucose Hemoglobin A1c % Calcium Peritoneal Tot Protein Peritoneal Albumin Peritoneal LDH Peritoneal Glucose Blood Type Antibody Screen Microbiology Microbiology Results: Microbiology 06/09/25 19:14 Gram Stain - Final Abdominal Fluid Anaerobic Culture - Preliminary No growth to date. Body Fluid Culture - Preliminary No growth to date. Assessment and Plan (1) Cirrhosis of liver with ascites: Status: Acute Plan d3, 64yo F from LTC with schizoaffective disorder, dementia, cirrhosis complicated by esophageal varices/hepatic encephalopathy/thrombocyoptenia/anemia, and DM2 sent in for hyperglycemia and dyspnea. Found to have significant ascites and was complaining of abdominal pain, also confused. ascites due to cirrhosis - paracentesis done in ED 06/09/25, studies consistent with portal HTN and not SBP but remains on ceftriaxone for SBP prophylaxis, resume spironolactone + furosemide - therapeutic paracentesis today canceled due to minimal residual ascites fluid FOBT+ - EGD canceled, H+H stable, doubt variceal bleed but remains on IV PPI + octreotide, recheck H+H tomorrow HE - continue lactulose + rifaximin thrombocytopenia - suspect splenic sequestration though unclear why platelet count did not budge after 3u pRBCs; Heme-Onc consultation DM2 with hyperglycemia - hold Tresiba, giving correction-dose lispro schizoaffective disorder - haloperidol + benztropine VTE ppx - SCDs, no heparin given thrombocyoptenia Total time managing care of this patient today: 45 minutes. Quality Stroke Does the patient have a stroke diagnosis?: No Reason for No Anti-thrombotic by Day Two: Contraindicated VTE Prior VTE?: No VTE Risk Level:: Medical - moderate - high VTE Device Contraindication: N/A - Device Ordered VTE Drug Contraindication: Treatment Not Indicated
[2025-06-11 20:27] LABS: Glucose, Whole Blood 169 mg/dL (60-115)
[2025-06-12 03:49] VITALS: BP 137/66; PULSE 94; RESP 16; TEMP 36.6; O2SAT 98
[2025-06-12 06:18] LABS: Hematocrit 24.3 % (37.0-47.0); Hemoglobin 8.2 g/dl (12.0-16.0); Mean Corpuscular HGB Conc 33.7 g/dl (31.0-35.0); Mean Corpuscular Hemoglobin 30.9 pg (27.0-33.0); Mean Corpuscular Volume 91.7 fL (80.0-98.0); NRBC Abs Auto 0.000 X10*3/uL (0.0-0.012); NRBC Pct Auto 0.0 /100WBC (0.0-0.2); Red Blood Count 2.65 X10*6/uL (4.20-5.50); White Blood Count 3.6 X10*3/uL (4.8-10.8)
[2025-06-12 06:19] LABS: Platelet Count 21 X10*3/uL (160-400)
[2025-06-12 06:24] LABS: INTERNATIONAL NORM RATIO 1.4 (0.9-1.1); Prothrombin Time 16.4 SEC (10.9-12.4)
[2025-06-12 06:34] LABS: Alanine Aminotransferase 20 U/L (0-31); Albumin Level 2.7 g/dL (3.5-5.0); Alkaline Phosphatase 100 U/L (39-117); Anion Gap 12 (12-20); Aspartate Amino Transferase 35 U/L (5-31); Blood Urea Nitrogen 24 mg/dL (9-16); Calcium 7.6 mg/dL (8.4-10.2); Carbon Dioxide 18 mmol/L (22-29); Chloride 115 mmol/L (96-108); Creatinine Clr Calc Pharmacy 54.0; Estimated Glomerular Filt Rate 51; Magnesium 1.9 mg/dL (1.6-2.6); Potassium 4.0 mmol/L (3.3-5.1); Sodium 141 mmol/L (135-145); Total Protein 6.0 g/dL (6.5-8.0)
[2025-06-12 07:53] VITALS: BP 133/63; PULSE 92; RESP 18; TEMP 36.4; O2SAT 96
[2025-06-12 07:53] LABS: Glucose, Whole Blood 223 mg/dL (60-115)
[2025-06-12] MEDS: 0.9 % Sodium Chloride Flush 3 ML SYRINGE IVFLUSH ×3 (08:54→22:27)
[2025-06-12 11:26] VITALS: BP 135/60; PULSE 90; RESP 20; TEMP 36.4; O2SAT 99
--- NOTE | 2025-06-12 11:26 | HO.PM.IMPN ---
Subjective Subjective Date of Service: 06/12/25 Interval History: This history was taken in [place] from the patient. Denies BRBPR or melena but still c/o abd pain Tolerating diet Review of Systems Review of Systems: Yes all other systems are reviewed and are negative Physical Exam Vital Signs: Vital Signs: Last Vital Signs Temp 97.6 F 06/12/25 07:53 Pulse 92 06/12/25 07:53 Resp 18 06/12/25 07:53 BP 133/63 06/12/25 07:53 Pulse Ox 96 06/12/25 07:53 O2 Del Method Room Air 06/12/25 07:53 BMI result Body Mass Index 32.6 Gen: in no acute distress HEENT: sclera anicteric, moist mucus membranes Neck: supple Lungs: clear to auscultation bilaterally Heart: regular rate and rhythm, no murmurs Abd: non-tender, somewhat distended Ext: no edema Skin: warm/well-perfused Neuro: alert, mildly confused, no asterixis Psych: appropriate affect Objective Data Active Medications Acetaminophen (Acetaminophen 325 Mg Tablet) 650 mg PO Q6H PRN PRN Reason: Pain, Mild 1-3,fever,headache Last Admin: 06/10/25 12:15 Dose: 650 mg Documented By: ABHISHEKDONJose Maria Albuterol/Ipratropium (Albuterol/Iprat 2.5/0.5mg 3 Ml Ampul.Neb) 3 ml INHALE Q4H PRN PRN Reason: Shortness of Breath/Wheezing Benztropine Mesylate (Benztropine Mesylate 0.5 Mg Tablet) 0.5 mg PO BEDTIME COUNT INCLUDES THE [facility] Last Admin: 06/11/25 21:26 Dose: 0.5 mg Documented By: EMERSON Bisacodyl (Bisacodyl 10 Mg Supp.Rect) 10 mg OR DAILY PRN PRN Reason: constipation #2 Calcium Carbonate (Calcium Carbonate 750 Mg Tab.Chew) 750 mg PO Q4H PRN PRN Reason: Heartburn Ceftriaxone Sodium (Ceftriaxone Sodium 2 Gm Vial) 2 gm IVPUSH Q24H COUNT INCLUDES THE [facility] Last Admin: 06/11/25 16:52 Dose: 2 gm Documented By: SOTO Dextrose (Dextrose 50 % 25 Gm/50 Ml Syringe) 25 gm IVPUSH Q15M PRN; Protocol PRN Reason: per Hypoglycemia Standing Ord. Furosemide (Furosemide 20 Mg Tablet) 60 mg PO DAILY COUNT INCLUDES THE [facility]; Protocol Last Admin: 06/12/25 08:52 Dose: 60 mg Documented By: JAMISON Glucose (Glucose Gel 15 Gm Gel..Gram.) 15 gm PO Q15M PRN; Protocol PRN Reason: per Hypoglycemia Standing Ord. Haloperidol (Haloperidol 5 Mg Tablet) 10 mg PO BID COUNT INCLUDES THE [facility] Last Admin: 06/12/25 08:55 Dose: 10 mg Documented By: JAMISON Octreotide Acetate 500 mcg/ (Sodium Chloride) 501 mls @ 50.1 mls/hr IVCONT .Q10H COUNT INCLUDES THE [facility] Last Admin: 06/12/25 09:05 Dose: 50 mcg/hr, 50.1 mls/hr Documented By: JAMISON Insulin Human Lispro (Insulin Lispro 100 Unit/Ml 3 Ml Vial) 0 unit SUBCUT QIDACHS COUNT INCLUDES THE [facility]; Protocol Last Admin: 06/12/25 08:52 Dose: 4 unit Documented By: JAMISON Lactulose (Lactulose 20 Gm/30 Ml Solution) 30 gm PO TID COUNT INCLUDES THE [facility] Last Admin: 06/12/25 08:55 Dose: 30 gm Documented By: JAMISON Magnesium Hydroxide (Milk Of Magnesia 30 Ml Oral.Susp) 30 ml PO DAILY PRN PRN Reason: Constipation Magnesium Hydroxide (Milk Of Magnesia 30 Ml Oral.Susp) 30 ml PO BEDTIME PRN PRN Reason: constipation #1 Melatonin (Melatonin 3 Mg Tablet) 6 mg PO BEDTIME PRN PRN Reason: Insomnia Last Admin: 06/10/25 20:08 Dose: 6 mg Documented By: LIT Naloxone HCl (Naloxone Hcl 0.4 Mg/Ml Vial) 0.04 mg IVPUSH Q5M PRN PRN Reason: Excessive sedation or RR < 8 Ondansetron HCl (Ondansetron Hcl 4 Mg/2 Ml Vial) 4 mg IVPUSH Q8H PRN PRN Reason: Nausea and Vomiting Pantoprazole Sodium (Pantoprazole Sodium 40 Mg/10 Ml Vial) 40 mg IVPUSH BID@0630,1630 COUNT INCLUDES THE [facility] Last Admin: 06/12/25 08:54 Dose: 40 mg Documented By: JAMISON Polyethylene Glycol (Polyethylene Glycol 3350 17 Gm Powd.Pack) 17 gm PO DAILY PRN PRN Reason: Constipation Rifaximin (Rifaximin 550 Mg Tablet) 550 mg PO BID COUNT INCLUDES THE [facility] Last Admin: 06/12/25 08:52 Dose: 550 mg Documented By: JAMISON Senna (Sennosides 8.6 Mg Tablet) 8.6 mg PO BID PRN PRN Reason: Constipation Sodium Biphosphate/Sodium Phosphate (Sodium Phosphate,[place]-Dibasic 133 Ml Enema) 133 ml OR DAILY PRN PRN Reason: preop for flexible sigmoidoscopy Sodium Biphosphate/Sodium Phosphate (Sodium Phosphate,[place]-Dibasic 133 Ml Enema) 133 ml OR ONCE PRN PRN Reason: Pre-Op Surgical Prep Last Admin: 06/11/25 13:33 Dose: 133 ml Documented By: SOTO Sodium Chloride (0.9 % Sodium Chloride Flush 3 Ml Syringe) 3 ml IVFLUSH QSVTFT COUNT INCLUDES THE [facility] Last Admin: 06/12/25 08:54 Dose: 3 ml Documented By: JAMISON Spironolactone (Spironolactone 25 Mg Tablet) 50 mg PO DAILY COUNT INCLUDES THE [facility]; Protocol Last Admin: 06/12/25 08:52 Dose: 50 mg Documented By: JAMISON Labs 06/12/25 06:06 06/12/25 06:06 Labs: Laboratory Results - last 24 hr 06/09/25 06/09/25 06/11/25 19:14 22:16 11:31 MCV MCH MCHC RDW Plt Count MPV Absolute Nucleated RBC Nucleated RBC % (auto) PT INR Anion Gap Estim Creat Clear Calc Estimated GFR POC Glucose 210 H Random Glucose Calcium Magnesium Total Bilirubin AST ALT Alkaline Phosphatase Total Protein Albumin Peritoneal Albumin 0.5 Blood Type B Positive Antibody Screen NEGATIVE 06/11/25 06/11/25 06/11/25 14:05 16:00 20:23 MCV 90.6 MCH 31.6 MCHC 34.9 RDW 14.5 Plt Count 22 L MPV 11.0 Absolute Nucleated RBC 0.000 Nucleated RBC % (auto) 0.0 PT INR Anion Gap Estim Creat Clear Calc Estimated GFR POC Glucose 150 H 169 H Random Glucose Calcium Magnesium Total Bilirubin AST ALT Alkaline Phosphatase Total Protein Albumin Peritoneal Albumin Blood Type Antibody Screen 06/12/25 06/12/25 06:06 07:49 MCV 91.7 MCH 30.9 MCHC 33.7 RDW 14.5 Plt Count 21 L MPV 10.8 Absolute Nucleated RBC 0.000 Nucleated RBC % (auto) 0.0 PT 16.4 H INR 1.4 H Anion Gap 12 Estim Creat Clear Calc 54.0 Estimated GFR 51 POC Glucose 223 H Random Glucose 242 H Calcium 7.6 L Magnesium 1.9 Total Bilirubin 0.9 AST 35 H ALT 20 Alkaline Phosphatase 100 Total Protein 6.0 L Albumin 2.7 L Peritoneal Albumin Blood Type Antibody Screen Microbiology Microbiology Results: Microbiology 06/09/25 19:14 Gram Stain - Final Abdominal Fluid Anaerobic Culture - Preliminary No growth to date. Body Fluid Culture - Final No growth after 2 days Assessment and Plan (1) Cirrhosis of liver with ascites: Status: Acute Plan d4, 64yo F from LTC with schizoaffective disorder, dementia, cirrhosis complicated by esophageal varices/hepatic encephalopathy/thrombocyoptenia/anemia, and DM2 sent in for hyperglycemia and dyspnea. Found to have significant ascites and was complaining of abdominal pain, also confused. ascites due to cirrhosis - paracentesis done in ED 06/09/25, studies consistent with portal HTN and not SBP but remains on ceftriaxone for SBP prophylaxis [change to TMP-SMX upon discharge- pt has hx of SBP], resumed spironolactone + furosemide - therapeutic paracentesis 06/11 canceled due to minimal residual ascites fluid FOBT+ - EGD canceled 06/11 due to thrombocytopenia, H+H stable, doubt variceal bleed but remains on IV PPI + octreotide, monitor Hb daily HE - continue lactulose + rifaximin thrombocytopenia - suspect splenic sequestration though unclear why platelet count did not budge after 3u pRBCs; Heme-Onc consultation pending DM2 with hyperglycemia - hold Tresiba, giving correction-dose lispro schizoaffective disorder - haloperidol + benztropine VTE ppx - SCDs, no heparin given thrombocyoptenia dispo - eventual return to LTC In my clinical judgment, the patient requires continued inpatient hospitalization for the following reasons: anemia/thrombocytopenia, question of GIB Total time managing care of this patient today: 40 minutes. Quality Stroke Does the patient have a stroke diagnosis?: No Reason for No Anti-thrombotic by Day Two: Contraindicated VTE Prior VTE?: No VTE Risk Level:: Medical - moderate - high VTE Device Contraindication: N/A - Device Ordered VTE Drug Contraindication: Treatment Not Indicated
[2025-06-12 11:33] LABS: Glucose, Whole Blood 313 mg/dL (60-115)
--- NOTE | 2025-06-12 14:13 | HO.POSTANES ---
Post Anesthesia Evaluation Post Anesthesia Evaluation Date of Service: 06/12/25 Vital Signs: Vital Signs Temp Pulse Resp BP Pulse Ox O2 Del Method 06/12/25 11:26 97.6 F 90 20 135/60 99 Room Air 06/12/25 07:53 97.6 F 92 18 133/63 96 Room Air 06/12/25 03:49 97.8 F 94 16 137/66 98 Room Air Anesthesia: Monitored Mental Status: Awake Pain Control: Satisfactory Nausea/Vomiting: None Hydration: Adequate Anesthesia-Related Issues: No Anes. Related Issues
[2025-06-12 16:00] VITALS: BP 127/61; PULSE 86; RESP 18; TEMP 36.3; O2SAT 98
[2025-06-12 16:18] LABS: Glucose, Whole Blood 257 mg/dL (60-115)
[2025-06-12 19:32] VITALS: BP 141/53; PULSE 87; RESP 17; TEMP 36.7; O2SAT 100
--- NOTE | 2025-06-12 21:37 | P.CNHO_ITS ---
Subjective - Subjective Chief complaint: Consult for: Pancytopenia. Patient: new to practice Consult date: 06/12/25 Primary Care Provider: Tono Nicole MD Medical Summary: DIAGNOSIS: Pancytopenia. Development Mgr Utilized?: Yes - Language [employer] HPI - Consult Narrative Reason for consult: Consult for Pancytopenia. Narrative: Catherine Stern is a 64 year old lady, from a group home unable to provide HPI, past medical history or surgical history. Patient has a past medical history of schizoaffective disorder, dementia, hepatic encephalopathy, thrombocytopenia secondary to liver failure, cirrhosis of the liver, esophageal varices, iron deficiency anemia, insulin-dependent diabetes. She presented to the emergency department after being brought in by EMS for blood sugar of 398 and shortness of breath at rest. She was being picked up by the same EMS provider for an appointment with GI but noted that patient was extremely short of breath at rest without hypoxia. In addition her point of care was 398. She was takento the ED instead of going to the appointment with GI. Blood glucose on arrival was 290. Her oxygenation was stable on room air. She had significant ascites and was planned for a paracentesis on Saturday06/10/2025 as an outpatient. Patient does not have a PleurX drain in place. She initially complained of abdominal pain on arrival. She is confused at baseline, unable to answer questions appropriately. DATA base: CT scan done in the ED noted hepatic cirrhosis with moderate abdominal pelvic ascites. Also moderate diffuse mesenteric stranding was present with the acute spontaneous peritonitis that can not be excluded. She was started on ceftriaxone. She was admitted for paracentesis. GI was consulted as patient's stool for occult was positive for blood. H&H currently 8.6 and 26.1 and patent patient's platelets are 26,000. Patient overall has pancytopenia. INR 1.3. VBG reassuring pH 7.49, CO2 26, PO2 219 and bicarb 20. Renal function somewhat lower than baseline with a creatinine clearance of 50.7 and a GFR of 48. Creatinine 1.15, BUN 34. AST 48, ALT 23 and alk-phos 151. Ammonia is 74, she is normally on lactulose. Troponin 3.7. Lipase 41 and beta hydroxybutyrate 0.10. Patient does not have evidence of HHS or DKA. Plan: To continue ceftriaxone, Protonix and octreotide. 2 PMS[facility] Medical History:) Seizure Schizoaffective disorder Diabetes Thrombocytopenia Hyperkalemia Esophageal varices determined by endoscopy Cirrhosis of liver with ascites Parkinson disease Hypertension Diabetes Cognitive capacity: Alert to self Patient : No. Surgical History: Hx of esophagogastroduodenoscopy Hx of colonoscopy Family History: Father Colon cancer Mother Diabetes Colon polyps Daughter Lupus Social History:) Household Members: Children Housing: House Housing Other:: Duplex Are you a primary health care specialist to a significant other at home: No Do you presently have visiting nurse or other home services: No Alcohol intake: former Patient Tobacco Use Status: Former Tobacco user Smoked in Last 30 Days: No Use of substances other than those prescribed or required for medical reasons: No Review of Systems Unobtainable due to mental status (Dementia.) Review of Systems - Constitutional Reports system reviewed and no additional complaints, except as documented - Eyes Reports system reviewed and no additional complaints, except as documented - ENT Reports system reviewed and no additional complaints, except as documented - Cardiovascular Reports system reviewed and no additional complaints, except as documented - Respiratory Reports no additional respiratory complaints - Gastrointestinal Reports system reviewed and no additional complaints, except as documented - Genitourinary Reports no additional female genitourinary complaints - Musculoskeletal Reports system reviewed and no additional complaints, except as documented - Integumentary/Breasts Skin/Breast: Reports no additional skin complaints - Neurologic Reports confusion - Psychiatric Reports system reviewed and no additional complaints, except as documented - Endocrine Reports no additional endocrine complaints - Hematologic/Lymphatic Reports system reviewed and no additional complaints, except as documented - Allergic/Immunologic Reports system reviewed and no additional complaints, except as documented Oncology Screenings - ECOG Performance Status ECOG Performance Status: 2 [facility] Medical History: Medical History (Last Reviewed 06/09/25 @ 21:27 by JAYLA Stratton) Cirrhosis of liver with ascites Diabetes Diabetes Esophageal varices determined by endoscopy Hyperkalemia Hypertension Parkinson disease Schizoaffective disorder Seizure Thrombocytopenia Functional capacity: wheelchair bound Family History: Family History (Last Reviewed 06/09/25 @ 21:27 by JAYLA Stratton) Father Colon cancer Mother Diabetes Colon polyps Daughter Lupus Surgical History: Surgical History (Last Reviewed 06/09/25 @ 21:27 by MARIA G Stratton) Hx of colonoscopy Hx of esophagogastroduodenoscopy Social History: Social History (Last Reviewed 06/09/25 @ 21:27 by JAYLA Stratton) Living Situation History: Household Members: Family Housing: Apartment Housing Other:: Duplex Are you a primary health care specialist to a significant other at home: No Do you presently have visiting nurse or other home services: No Tobacco History: Patient Tobacco Use Status: Former Tobacco user Tobacco use type: Cigarette e-Cigarette/Vaping Use: Former Use Second Hand Smoke Exposure: No Occupation Assessmet: service: No Current occupational status: unemployed Current occupational status: disabled - Travel History Ebola Risk: Travel/Contact With Anyone From Affected Area/s: No Has Patient Experienced Ebola Symptoms: No Home Medications and Allergies Current Medications: Current Medications Acetaminophen (Acetaminophen 325 Mg Tablet) 650 mg PO Q6H PRN PRN Reason: Pain, Mild 1-3,fever,headache Last Admin: 06/10/25 12:15 Dose: 650 mg Albuterol/Ipratropium (Albuterol/Iprat 2.5/0.5mg 3 Ml Ampul.Neb) 3 ml INHALE Q4H PRN PRN Reason: Shortness of Breath/Wheezing Benztropine Mesylate (Benztropine Mesylate 0.5 Mg Tablet) 0.5 mg PO BEDTIME [facility] Last Admin: 06/11/25 21:26 Dose: 0.5 mg Bisacodyl (Bisacodyl 10 Mg Supp.Rect) 10 mg [place] DAILY PRN PRN Reason: constipation #2 Calcium Carbonate (Calcium Carbonate 750 Mg Tab.Chew) 750 mg PO Q4H PRN PRN Reason: Heartburn Ceftriaxone Sodium (Ceftriaxone Sodium 2 Gm Vial) 2 gm IVPUSH Q24H [facility] Last Admin: 06/12/25 16:53 Dose: 2 gm Dextrose (Dextrose 50 % 25 Gm/50 Ml Syringe) 25 gm IVPUSH Q15M PRN; Protocol PRN Reason: per Hypoglycemia Standing Ord. Furosemide (Furosemide 20 Mg Tablet) 60 mg PO DAILY [facility]; Protocol Last Admin: 06/12/25 08:52 Dose: 60 mg Glucose (Glucose Gel 15 Gm Gel..Gram.) 15 gm PO Q15M PRN; Protocol PRN Reason: per Hypoglycemia Standing Ord. Haloperidol (Haloperidol 5 Mg Tablet) 10 mg PO BID [facility] Last Admin: 06/12/25 08:55 Dose: 10 mg Octreotide Acetate 500 mcg/ (Sodium Chloride) 501 mls @ 50.1 mls/hr IVCONT .Q10H [facility] Last Admin: 06/12/25 19:09 Dose: 50 mcg/hr, 50.1 mls/hr Insulin Human Lispro (Insulin Lispro 100 Unit/Ml 3 Ml Vial) 0 unit SUBCUT QIDACHS [facility]; Protocol Last Admin: 06/12/25 16:53 Dose: 6 unit Lactulose (Lactulose 20 Gm/30 Ml Solution) 30 gm PO TID [facility] Last Admin: 06/12/25 16:52 Dose: 30 gm Magnesium Hydroxide (Milk Of Magnesia 30 Ml Oral.Susp) 30 ml PO DAILY PRN PRN Reason: Constipation Magnesium Hydroxide (Milk Of Magnesia 30 Ml Oral.Susp) 30 ml PO BEDTIME PRN PRN Reason: constipation #1 Melatonin (Melatonin 3 Mg Tablet) 6 mg PO BEDTIME PRN PRN Reason: Insomnia Last Admin: 06/10/25 20:08 Dose: 6 mg Naloxone HCl (Naloxone Hcl 0.4 Mg/Ml Vial) 0.04 mg IVPUSH Q5M PRN PRN Reason: Excessive sedation or RR < 8 Ondansetron HCl (Ondansetron Hcl 4 Mg/2 Ml Vial) 4 mg IVPUSH Q8H PRN PRN Reason: Nausea and Vomiting Pantoprazole Sodium (Pantoprazole Sodium 40 Mg/10 Ml Vial) 40 mg IVPUSH BID@0630,1630 [facility] Last Admin: 06/12/25 16:53 Dose: 40 mg Polyethylene Glycol (Polyethylene Glycol 3350 17 Gm Powd.Pack) 17 gm PO DAILY PRN PRN Reason: Constipation Rifaximin (Rifaximin 550 Mg Tablet) 550 mg PO BID [facility] Last Admin: 06/12/25 08:52 Dose: 550 mg Senna (Sennosides 8.6 Mg Tablet) 8.6 mg PO BID PRN PRN Reason: Constipation Sodium Biphosphate/Sodium Phosphate (Sodium Phosphate,[place]-Dibasic 133 Ml Enema) 133 ml WA DAILY PRN PRN Reason: preop for flexible sigmoidoscopy Sodium Biphosphate/Sodium Phosphate (Sodium Phosphate,[place]-Dibasic 133 Ml Enema) 133 ml WA ONCE PRN PRN Reason: Pre-Op Surgical Prep Last Admin: 06/11/25 13:33 Dose: 133 ml Sodium Chloride (0.9 % Sodium Chloride Flush 3 Ml Syringe) 3 ml IVFLUSH QSHIFT JOSEMANUEL Last Admin: 06/12/25 16:53 Dose: 3 ml Spironolactone (Spironolactone 25 Mg Tablet) 50 mg PO DAILY [facility]; Protocol Last Admin: 06/12/25 08:52 Dose: 50 mg Home Medications ?Medication ?Instructions ?Recorded ?Confirmed ?Type benztropine 0.5 mg tablet 0.5 mg PO BEDTIME 08/17/20 06/09/25 Hist ory haloperidol 5 mg tablet 10 mg PO BID 08/17/20 06/09/25 History insulin lispro 100 unit/mL See Protocol subcut TID 08/17/20 06/09/25 History subcutaneous pen (Humalog KwikPen (U-100) Insulin) flash glucose sensor (FreeStyle #1 ea 05/01/23 11/27/24 History Gurpreet 2 Sensor kit) insulin degludec 200 unit/mL (3 62 unit subcut BEDTIME 05/01/23 06/09/25 History mL) subcutaneous pen (Tresiba FlexTouch U-200 insulin) blood-glucose meter (FreeStyle #1 ea 06/17/24 11/27/24 History [place] Lite kit) ferrous gluconate 240 mg (27 mg 240 mg PO DAILY@0730 04/26/25 06/09/25 H istory iron) tablet levofloxacin 250 mg tablet 250 mg PO DAILY 04/26/25 06/09/25 Histor y magnesium hydroxide 400 mg/5 mL 30 ml PO BEDTIME PRN constipation 06/09/25 History oral suspension (Milk of Magnesia) #1 sennosides 8.6 mg capsule (senna) 8.6 mg PO BID PRN Constipation 04/26/25 06/09/25 History acetaminophen 325 mg tablet 650 mg PO Q4H PRN Fever Or Pain 06/09/25 06/09/25 History acetaminophen 650 mg rectal 650 mg WA Q4H PRN Fever Or Pain 06/09/25 06/09/25 History suppository bisacodyl 10 mg rectal suppository 10 mg WA DAILY PRN constipation #2 06/0906/09/25 History lactulose 10 gram/15 mL (15 mL) 30 g PO TID 06/09/25 06/09/25 History oral solution melatonin 3 mg tablet 3 mg PO BEDTIME PRN Sleep 06/09/2506/09 History naloxone 4 mg/actuation nasal 4 mg intranasal Q3M PRN overdose 5 06/09/25 History spray (Narcan) sodium phosphates 19 gram-7 118 ml WA DAILY PRN constipation #3 05/2206/09/25 History gram/118 mL enema (Fleet Enema) spironolactone 50 mg tablet 50 mg PO DAILY 06/09/25 06/09/25 History Allergies Allergy/AdvReac Type Severity Reaction Status Date / Time Penicillins Allergy Unknown HIVES Verified 06/09/25 15:19 Physical Exam Vital signs: Vital Signs Temp 98.1 F 06/12/25 19:32 Pulse 87 06/12/25 19:32 Resp 17 06/12/25 19:32 BP 141/53 H 06/12/25 19:32 Pulse Ox 100 06/12/25 19:32 O2 Del Method Room Air 06/12/25 19:32 Intake & Output 06/12/25 06/12/25 06/13/25 06:59 18:59 06:59 Intake Total 921 / 2212 1101 / 1602 501 / 1602 Output Total 400 / 2200 Balance 521 / 12 1101 / 1602 501 / 1602 Urine Output (Average ml/kg/hr) 0.40 0.40 0.40 Intake: Intake, Oral Amount 420 / 420 600 / 600 Intake, IV Amount 501 / 1002 501 / 1002 501 / 1002 Octreotide Acetate 500 mcg In 0 501 / 1002 501 / 1002 501 / 1002 .9 % Sodium Chloride 500 ml @ 50 MCG/HR 50.1 mls/hr IVCONT . Q10H [facility] Rx#:[id number] Output: Output, Urine Amount 400 / 2200 Other: Meal Refused No NPO No Breakfast % Eaten 100% Lunch % Eaten 75% Dinner % Eaten 75% Eating (Feeding) Ability Independent Number of Incontinent Voids 1 3 Number of Bowel Movements 1 3 Urine purewick inc Urine Color Yellow Yellow Last Bowel Movement 06/12/25 06/12/25 Stool Incontinent Incontinent Stool Amount Large Large Stool Color Brown Yellow Stool Consistency Loose Weight 83.4 kg - Constitutional Present: moderate distress - Routine HEENT Exam Head: Present: normal inspection, normocephalic ENT: Present: mucous membranes moist - Routine Neck Exam Present: supple, trachea midline - Routine Respiratory Exam Present: CTAB - Routine Cardiovascular Exam Cardiovascular: Present: RRR, S1, S2 - Routine Abdominal Exam Present: distended. Absent: rigid - Routine Extremities Exam Present: nontender Hem/Onc Consult Result - Labs CBC & Chem 7: 06/14/25 06:11 06/14/25 06:11 Labs: Short CBC 06/12/25 Range/Units 06:06 WBC 3.6 L (4.8-10.8) X10*3/uL Hgb 8.2 L (12.0-16.0) g/dl Hct 24.3 L (37.0-47.0) % Plt Count 21 L (160-400) X10*3/uL BMP 06/12/25 06:06 Sodium 141 Potassium 4.0 Chloride 115 H Carbon Dioxide 18 L BUN 24 H Creatinine 1.09 Calcium 7.6 L Liver Function 06/12/25 Range/Units 06:06 Total Bilirubin 0.9 (0.0-1.0) mg/dL AST 35 H (5-31) U/L ALT 20 (0-31) U/L Alkaline Phosphatase 100 (39-117) U/L Albumin 2.7 L (3.5-5.0) g/dL Assessment and Plan Patient Active problem list reviewed?: Yes (1) Thrombocytopenia Status: Chronic Assessment and plan: 64 year old lady admitted with shortness of breath and abdominal pain. DATA BASE: WBC:3.6, HGB:8.2, HCT 24.3, PLT 21. INR is 1.3. LFTs: 0.9/100/35/20. Serial Platelets: 26/25/23/22/21. 8// ABD CT SCAN: Hepatic cirrhosis with moderate abdominal pelvic ascites. Moderate diffuse mesenteric stranding is present. Acute spontaneous peritonitis can not be excluded. Moderately distended urinary bladder. Emptying is suggested. PAST GI HISTORY/MEDICAL RECORDS: Initially diagnosed with cirrhosis 3-4 years ago incidentally on ultrasound findings which was done for abdominal discomfort. Thought to be likely secondary to QURESHI / NAFLD. No significant history of alcohol use disorder. Hep serologies negative, however Hep B core antibody not available. Early 2021, patient developed Ascites. Since then, she has had multiple paracenteses. She had a recent admission to [facility] last month for hepatic encephalopathy. Has been started on lactulose since then. She had a thoracentesis from the right side in the same admission. Per records 5.2L removed by para and 1500ml removed from thora. Fluid studies N/A. Pancytopenia: Differential Diagnosis: 1. Related to liver cirrhosis: Low platelets secondary to liver failure. 2. Super-added Infection: She has ascites. Suspected SBP. 3. DIC: Could be secondary to the infection. 4. B12/Folate Deficiency. 5. Underlying Myelo-infiltrative Disorder: MDS, multiple myeloma, Lymphoma, less likely. 6. ITP. No current spontaneous bleeding, bruising or petechiae. She was given platelets without a rise in her count. Most likely due to peripheral destruction, related to infection versus splenic sequestration. PLAN: Will proceed with further evaluation. R/O DIC. (fibrinogen 336, D-dimer 878.) Check B12/folate levels. (B12 924, folate 10.) Check LDH (208) and SIEP, for completion. If needed can proceed with EGD/ flex sig, under platelet cover, for diagnostic purposes, without biopsy. Thanks for the consult, CC: Tono Nicole. - Time Spent With Patient Time Spent with Patient (in minutes): 30
[2025-06-12 22:12] LABS: Glucose, Whole Blood 268 mg/dL (60-115)
[2025-06-12 23:38] VITALS: BP 140/61; PULSE 88; RESP 17; TEMP 36.3; O2SAT 100
[2025-06-13] VITALS (8 sets, daily range): BP systolic 106–145; BP diastolic 50–67; PULSE 82–104; RESP 16–18; TEMP 36.1–36.6; O2SAT 96–100
[2025-06-13 06:53] LABS: Fibrinogen 336 MG/DL (259-690)
[2025-06-13 06:55] LABS: D Dimer High Sensitivity 878 NG/ML; Partial Thromboplastin Time 30.5 SEC (26.7-34.1)
[2025-06-13 07:04] LABS: Hematocrit 23.0 % (37.0-47.0); Hemoglobin 8.0 g/dl (12.0-16.0); Mean Corpuscular HGB Conc 34.8 g/dl (31.0-35.0); Mean Corpuscular Hemoglobin 31.5 pg (27.0-33.0); Mean Corpuscular Volume 90.6 fL (80.0-98.0); NRBC Abs Auto 0.000 X10*3/uL (0.0-0.012); NRBC Pct Auto 0.0 /100WBC (0.0-0.2); Red Blood Count 2.54 X10*6/uL (4.20-5.50); White Blood Count 2.9 X10*3/uL (4.8-10.8)
[2025-06-13 07:05] LABS: Platelet Count 21 X10*3/uL (160-400)
[2025-06-13 07:30] LABS: Glucose, Whole Blood 216 mg/dL (60-115)
[2025-06-13 07:35] LABS: Folate 10.1 ng/mL (> or = 4.0); Vitamin B12 924 pg/mL (200-900)
[2025-06-13] MEDS: 0.9 % Sodium Chloride Flush 3 ML SYRINGE IVFLUSH ×3 (08:38→20:58)
[2025-06-13 11:07] LABS: Glucose, Whole Blood 360 mg/dL (60-115)
[2025-06-13] MEDS: Insulin Glargine,Hum.rec.anlog 100 UNIT/ML 10 ML VIAL 10 UNIT SUBCUT (13:06)
--- NOTE | 2025-06-13 13:53 | P.PNIM_ITS ---
Subjective Subjective Date of Service: 06/13/25 Interval History: This history was taken in Welsh from the patient. States abd pain/discomfort improved No hematemesis, hematochezia, or melena. Choked on chopped chicken Review of Systems Review of Systems: Yes all other systems are reviewed and are negative Physical Exam 2 Vital Signs: Vital Signs: Last Vital Signs Temp 97.8 F 06/13/25 10:51 Pulse 82 06/13/25 10:51 Resp 18 06/13/25 10:51 BP 145/65 H 06/13/25 10:51 Pulse Ox 96 06/13/25 10:51 O2 Del Method Room Air 06/13/25 10:51 BMI result Body Mass Index 32.6 Gen: in no acute distress HEENT: sclera anicteric, moist mucus membranes Neck: supple Lungs: clear to auscultation bilaterally Heart: regular rate and rhythm, no murmurs Abd: non-tender, somewhat distended Ext: no edema Skin: warm/well-perfused Neuro: alert, mildly confused, no asterixis Psych: appropriate affect Objective Data Active Medications Acetaminophen (Acetaminophen 325 Mg Tablet) 650 mg PO Q6H PRN PRN Reason: Pain, Mild 1-3,fever,headache Last Admin: 06/10/25 12:15 Dose: 650 mg Documented By: CANDE Albuterol/Ipratropium (Albuterol/Iprat 2.5/0.5mg 3 Ml Ampul.Neb) 3 ml INHALE Q4H PRN PRN Reason: Shortness of Breath/Wheezing Benztropine Mesylate (Benztropine Mesylate 0.5 Mg Tablet) 0.5 mg PO BEDTIME FORMERLY [facility], [facility] Last Admin: 06/12/25 22:03 Dose: 0.5 mg Documented By: EMERSON Bisacodyl (Bisacodyl 10 Mg Supp.Rect) 10 mg [place] DAILY PRN PRN Reason: constipation #2 Calcium Carbonate (Calcium Carbonate 750 Mg Tab.Chew) 750 mg PO Q4H PRN PRN Reason: Heartburn Ceftriaxone Sodium (Ceftriaxone Sodium 2 Gm Vial) 2 gm IVPUSH Q24H FORMERLY [facility], [facility] Last Admin: 06/12/25 16:53 Dose: 2 gm Documented By: JAMISON Dextrose (Dextrose 50 % 25 Gm/50 Ml Syringe) 25 gm IVPUSH Q15M PRN; Protocol PRN Reason: per Hypoglycemia Standing Ord. Furosemide (Furosemide 20 Mg Tablet) 60 mg PO DAILY FORMERLY [facility], [facility]; Protocol Last Admin: 06/13/25 08:36 Dose: 60 mg Documented By: AZUCENA Glucose (Glucose Gel 15 Gm Gel..Gram.) 15 gm PO Q15M PRN; Protocol PRN Reason: per Hypoglycemia Standing Ord. Haloperidol (Haloperidol 5 Mg Tablet) 10 mg PO BID [facility], [facility] Last Admin: 06/13/25 08:36 Dose: 10 mg Documented By: AZUCENA Insulin Glargine (Insulin Glargine,Hum.Rec.Anlog 100 Unit/Ml 10 Ml Vial) 10 unit SUBCUT DAILY FORMERLY [facility], [facility] Last Admin: 06/13/25 13:06 Dose: 10 unit Documented By: AZUCENA Insulin Human Lispro (Insulin Lispro 100 Unit/Ml 3 Ml Vial) 0 unit SUBCUT QIDACHS FORMERLY [facility], [facility]; Protocol Last Admin: 06/13/25 13:05 Dose: 12 unit Documented By: AZUCENA Lactulose (Lactulose 20 Gm/30 Ml Solution) 30 gm PO TID FOR[facility]LY [facility], [facility] Last Admin: 06/13/25 08:37 Dose: 30 gm Documented By: AZUCENA Magnesium Hydroxide (Milk Of Magnesia 30 Ml Oral.Susp) 30 ml PO DAILY PRN PRN Reason: Constipation Magnesium Hydroxide (Milk Of Magnesia 30 Ml Oral.Susp) 30 ml PO BEDTIME PRN PRN Reason: constipation #1 Melatonin (Melatonin 3 Mg Tablet) 6 mg PO BEDTIME PRN PRN Reason: Insomnia Last Admin: 06/10/25 20:08 Dose: 6 mg Documented By: LIT Naloxone HCl (Naloxone Hcl 0.4 Mg/Ml Vial) 0.04 mg IVPUSH Q5M PRN PRN Reason: Excessive sedation or RR < 8 Omeprazole (Omeprazole 20 Mg Capsule.Dr) 20 mg PO BID@0630,1630 FOR[facility], [facility] Ondansetron HCl (Ondansetron Hcl 4 Mg/2 Ml Vial) 4 mg IVPUSH Q8H PRN PRN Reason: Nausea and Vomiting Polyethylene Glycol (Polyethylene Glycol 3350 17 Gm Powd.Pack) 17 gm PO DAILY PRN PRN Reason: Constipation Rifaximin (Rifaximin 550 Mg Tablet) 550 mg PO BID FORMERLY [facility], [facility] Last Admin: 06/13/25 08:36 Dose: 550 mg Documented By: AZUCENA Senna (Sennosides 8.6 Mg Tablet) 8.6 mg PO BID PRN PRN Reason: Constipation Sodium Biphosphate/Sodium Phosphate (Sodium Phosphate,[place]-Dibasic 133 Ml Enema) 133 ml NJ DAILY PRN PRN Reason: preop for flexible sigmoidoscopy Sodium Biphosphate/Sodium Phosphate (Sodium Phosphate,[place]-Dibasic 133 Ml Enema) 133 ml [place] ONCE PRN PRN Reason: Pre-Op Surgical Prep Last Admin: 06/11/25 13:33 Dose: 133 ml Documented By: SOTO Sodium Chloride (0.9 % Sodium Chloride Flush 3 Ml Syringe) 3 ml IVFLUSH QSHIFT FOR[facility], [facility] Last Admin: 06/13/25 08:38 Dose: 3 ml Documented By: AZUCENA Spironolactone (Spironolactone 25 Mg Tablet) 50 mg PO DAILY FOR[facility]LY [facility], [facility]; Protocol Last Admin: 06/13/25 08:37 Dose: 50 mg Documented By: AZUCENA Labs 06/13/25 06:13 06/12/25 06:06 Labs: Laboratory Results - last 24 hr 06/12/25 06/12/25 06/13/25 16:13 21:00 06:13 MCV 90.6 MCH 31.5 MCHC 34.8 RDW 14.4 Plt Count 21 L MPV 9.9 Absolute Nucleated RBC 0.000 Nucleated RBC % (auto) 0.0 APTT 30.5 Fibrinogen 336 D-Dimer High Sensitivty 878 POC Glucose 257 H 268 H Vitamin B12 924 H Folate 10.1 06/13/25 06/13/25 07:04 10:49 MCV MCH MCHC RDW Plt Count MPV Absolute Nucleated RBC Nucleated RBC % (auto) APTT Fibrinogen D-Dimer High Sensitivty POC Glucose 216 H 360 H* Vitamin B12 Folate Microbiology Microbiology Results: Microbiology 06/09/25 19:14 Gram Stain - Final Abdominal Fluid Anaerobic Culture - Preliminary No growth to date. Body Fluid Culture - Final No growth after 2 days Assessment and Plan (1) Cirrhosis of liver with ascites: Status: Acute Plan d5, 64yo F from LTC with schizoaffective disorder, dementia, cirrhosis complicated by esophageal varices/hepatic encephalopathy/thrombocyoptenia/anemia, and DM2 sent in for hyperglycemia and dyspnea. Found to have significant ascites and was complaining of abdominal pain, also confused. ascites due to cirrhosis - paracentesis done in ED 06/09/25, studies consistent with portal HTN and not SBP but remains on ceftriaxone for SBP prophylaxis [change to TMP-SMX upon discharge- pt has hx of SBP], resumed spironolactone + furosemide - therapeutic paracentesis 06/11 canceled due to minimal residual ascites fluid on US FOBT+ - EGD canceled 06/11 due to thrombocytopenia unresponsive to transfusion, H+H stable, doubt variceal bleed, will stop octreotide and change IV to PO PPI, continue to monitor CBC daily, discuss with GI hepatic encephalopathy - continue lactulose + rifaximin thrombocytopenia - suspect splenic sequestration though unclear why platelet count did not changeafter 3u pRBCs; Heme-Onc consulted; suspect splenic sequestration DM2 with hyperglycemia - start Lantus [on Tresiba as outpt] and continue Humalog schizoaffective disorder - haloperidol + benztropine dysphagia - downgrade to NDD2 solids, APIARIST consultation VTE ppx - SCDs, no heparin given thrombocyoptenia dispo - eventual return to LTC In my clinical judgment, the patient requires continued inpatient hospitalization for the following reasons: anemia/thrombocytopenia, question of GIB Total time managing care of this patient today: 40 minutes. Quality Stroke Does the patient have a stroke diagnosis?: No Reason for No Anti-thrombotic by Day Two: Contraindicated VTE Prior VTE?: No VTE Risk Level:: Medical - moderate - high VTE Device Contraindication: N/A - Device Ordered VTE Drug Contraindication: Treatment Not Indicated
--- NOTE | 2025-06-13 14:02 | PC.NURSE ---
[place] coughing from room 470, went in to find patient choking on her lunch of chopped chicken and rice. She had coughed the food on the the floor and was continuing to cough and was able to breath. Guide Domestic Tour called. She said she had chewed her food well but choked on it as she was swallowing. MD notified. MD downgraded to NDD2 and ordered an SUPERVISOR PAPER TESTING evaluation.
[2025-06-13 16:25] LABS: Glucose, Whole Blood 338 mg/dL (60-115)
[2025-06-13 20:51] LABS: Glucose, Whole Blood 151 mg/dL (60-115)
[2025-06-14 03:12] VITALS: BP 120/67; PULSE 86; RESP 16; TEMP 36.2; O2SAT 99
[2025-06-14 07:18] VITALS: BP 128/58; PULSE 86; RESP 16; TEMP 37.1; O2SAT 99
[2025-06-14 07:25] LABS: Hematocrit 25.7 % (37.0-47.0); Hemoglobin 8.6 g/dl (12.0-16.0); Mean Corpuscular HGB Conc 33.5 g/dl (31.0-35.0); Mean Corpuscular Hemoglobin 30.6 pg (27.0-33.0); Mean Corpuscular Volume 91.5 fL (80.0-98.0); NRBC Abs Auto 0.000 X10*3/uL (0.0-0.012); NRBC Pct Auto 0.0 /100WBC (0.0-0.2); Red Blood Count 2.81 X10*6/uL (4.20-5.50); White Blood Count 3.1 X10*3/uL (4.8-10.8)
[2025-06-14 07:30] LABS: Glucose, Whole Blood 184 mg/dL (60-115)
[2025-06-14 07:34] LABS: INTERNATIONAL NORM RATIO 1.3 (0.9-1.1); Prothrombin Time 15.0 SEC (10.9-12.4)
[2025-06-14 07:40] LABS: Alanine Aminotransferase 14 U/L (0-31); Albumin Level 2.7 g/dL (3.5-5.0); Alkaline Phosphatase 118 U/L (39-117); Anion Gap 10 (12-20); Aspartate Amino Transferase 29 U/L (5-31); Blood Urea Nitrogen 21 mg/dL (9-16); Calcium 7.7 mg/dL (8.4-10.2); Carbon Dioxide 18 mmol/L (22-29); Chloride 114 mmol/L (96-108); Creatinine Clr Calc Pharmacy 60.7; Estimated Glomerular Filt Rate 58; Magnesium 1.8 mg/dL (1.6-2.6); Potassium 4.4 mmol/L (3.3-5.1); Sodium 138 mmol/L (135-145); Total Protein 6.2 g/dL (6.5-8.0)
[2025-06-14 07:41] LABS: Platelet Count 20 X10*3/uL (160-400)
[2025-06-14] MEDS: Insulin Glargine,Hum.rec.anlog 100 UNIT/ML 10 ML VIAL 10 UNIT SUBCUT (08:10)
[2025-06-14] MEDS: 0.9 % Sodium Chloride Flush 3 ML SYRINGE IVFLUSH ×3 (08:15→21:43)
[2025-06-14 11:24] VITALS: BP 140/61; PULSE 83; RESP 16; TEMP 36.6; O2SAT 99
[2025-06-14 11:48] LABS: Glucose, Whole Blood 320 mg/dL (60-115)
[2025-06-14 15:39] VITALS: BP 146/63; PULSE 79; RESP 16; TEMP 36.2; O2SAT 100
--- NOTE | 2025-06-14 15:41 | MHC.CM.PN ---
Pt still requires acute care for treatment of Anemia, Her DCP is to return to [facility] where she resides LTC.
[2025-06-14 16:24] LABS: Glucose, Whole Blood 192 mg/dL (60-115)
--- NOTE | 2025-06-14 17:42 | HO.PM.IMPN ---
Subjective Subjective Date of Service: 06/14/25 Interval History: Chronic lightheadedness and dizziness at baseline Pt overall a poor historian No clear acute medical complaints No acute events overnight Denies recent bleeding Review of Systems Review of Systems: Yes all other systems are reviewed and are negative Physical Exam Exam: Exam: General: AOx3, in no acute distress Resp: CTA bilaterally CVS: S1, S2, RRR GI: +BS, NT, no distention Skin: Warm, dry Neuro: Cranial nerves II-XII grossly intact bilaterally. Motor grossly intact bilaterally Extremities: No edema Psych: Calm, cooperative Vital Signs: Vital Signs: Last Vital Signs Temp 97.1 F 06/14/25 15:39 Pulse 79 06/14/25 15:39 Resp 16 06/14/25 15:39 BP 146/63 H 06/14/25 15:39 Pulse Ox 100 06/14/25 15:39 O2 Del Method Room Air 06/14/25 15:39 BMI result Body Mass Index 32.6 Objective Data Active Medications Acetaminophen (Acetaminophen 325 Mg Tablet) 650 mg PO Q6H PRN PRN Reason: Pain, Mild 1-3,fever,headache Last Admin: 06/10/25 12:15 Dose: 650 mg Documented By: CANDE Albuterol/Ipratropium (Albuterol/Iprat 2.5/0.5mg 3 Ml Ampul.Neb) 3 ml INHALE Q4H PRN PRN Reason: Shortness of Breath/Wheezing Benztropine Mesylate (Benztropine Mesylate 0.5 Mg Tablet) 0.5 mg PO BEDTIME [facility] Last Admin: 06/13/25 20:58 Dose: 0.5 mg Documented By: FAN Bisacodyl (Bisacodyl 10 Mg Supp.Rect) 10 mg [place] DAILY PRN PRN Reason: constipation #2 Calcium Carbonate (Calcium Carbonate 750 Mg Tab.Chew) 750 mg PO Q4H PRN PRN Reason: Heartburn Ceftriaxone Sodium (Ceftriaxone Sodium 2 Gm Vial) 2 gm IVPUSH Q24H [facility] Last Admin: 06/14/25 16:31 Dose: 2 gm Documented By: ILIANA Dextrose (Dextrose 50 % 25 Gm/50 Ml Syringe) 25 gm IVPUSH Q15M PRN; Protocol PRN Reason: per Hypoglycemia Standing Ord. Furosemide (Furosemide 20 Mg Tablet) 60 mg PO DAILY [facility]; Protocol Last Admin: 06/14/25 08:12 Dose: 60 mg Documented By: ILIANA Glucose (Glucose Gel 15 Gm Gel..Gram.) 15 gm PO Q15M PRN; Protocol PRN Reason: per Hypoglycemia Standing Ord. Haloperidol (Haloperidol 5 Mg Tablet) 10 mg PO BID [facility] Last Admin: 06/14/25 08:12 Dose: 10 mg Documented By: ILIANA Insulin Glargine (Insulin Glargine,Hum.Rec.Anlog 100 Unit/Ml 10 Ml Vial) 10 unit SUBCUT DAILY [facility] Last Admin: 06/14/25 08:10 Dose: 10 unit Documented By: ILIANA Insulin Human Lispro (Insulin Lispro 100 Unit/Ml 3 Ml Vial) 0 unit SUBCUT QIDACHS [facility]; Protocol Last Admin: 06/14/25 16:35 Dose: 4 unit Documented By: ILIANA Lactulose (Lactulose 20 Gm/30 Ml Solution) 30 gm PO TID [facility] Last Admin: 06/14/25 14:17 Dose: Not Given Documented By: ILIANA Non-Admin Reason: having loose BM's Magnesium Hydroxide (Milk Of Magnesia 30 Ml Oral.Susp) 30 ml PO DAILY PRN PRN Reason: Constipation Magnesium Hydroxide (Milk Of Magnesia 30 Ml Oral.Susp) 30 ml PO BEDTIME PRN PRN Reason: constipation #1 Melatonin (Melatonin 3 Mg Tablet) 6 mg PO BEDTIME PRN PRN Reason: Insomnia Last Admin: 06/10/25 20:08 Dose: 6 mg Documented By: LIT Naloxone HCl (Naloxone Hcl 0.4 Mg/Ml Vial) 0.04 mg IVPUSH Q5M PRN PRN Reason: Excessive sedation or RR < 8 Omeprazole (Omeprazole 20 Mg Capsule.) 20 mg PO BID@0630,1630 [facility] Last Admin: 06/14/25 16:31 Dose: 20 mg Documented By: ILIANA Ondansetron HCl (Ondansetron Hcl 4 Mg/2 Ml Vial) 4 mg IVPUSH Q8H PRN PRN Reason: Nausea and Vomiting Polyethylene Glycol (Polyethylene Glycol 3350 17 Gm Powd.Pack) 17 gm PO DAILY PRN PRN Reason: Constipation Rifaximin (Rifaximin 550 Mg Tablet) 550 mg PO BID [facility] Last Admin: 06/14/25 08:12 Dose: 550 mg Documented By: ILIANA Senna (Sennosides 8.6 Mg Tablet) 8.6 mg PO BID PRN PRN Reason: Constipation Sodium Biphosphate/Sodium Phosphate (Sodium Phosphate,[place]-Dibasic 133 Ml Enema) 133 ml [place] DAILY PRN PRN Reason: preop for flexible sigmoidoscopy Sodium Biphosphate/Sodium Phosphate (Sodium Phosphate,[place]-Dibasic 133 Ml Enema) 133 ml [place] ONCE PRN PRN Reason: Pre-Op Surgical Prep Last Admin: 06/11/25 13:33 Dose: 133 ml Documented By: SOTO Sodium Chloride (0.9 % Sodium Chloride Flush 3 Ml Syringe) 3 ml IVFLUSH QSSDFT [facility] Last Admin: 06/14/25 16:31 Dose: 3 ml Documented By: ILIANA Spironolactone (Spironolactone 25 Mg Tablet) 50 mg PO DAILY [facility]; Protocol Last Admin: 06/14/25 08:12 Dose: 50 mg Documented By: ILIANA Labs 06/14/25 06:11 06/14/25 06:11 Labs: Laboratory Results - last 24 hr 06/13/25 06/14/25 06/14/25 20:48 06:11 07:21 MCV 91.5 MCH 30.6 MCHC 33.5 RDW 14.5 Plt Count 20 L* MPV 10.3 Absolute Nucleated RBC 0.000 Nucleated RBC % (auto) 0.0 PT 15.0 H INR 1.3 H Anion Gap 10 L Estim Creat Clear Calc 60.7 Estimated GFR 58 POC Glucose 151 H 184 H Random Glucose 181 H Calcium 7.7 L Magnesium 1.8 Total Bilirubin 0.6 AST 29 ALT 14 Alkaline Phosphatase 118 H Lactate Dehydrogenase 208 Total Protein 6.2 L Albumin 2.7 L 06/14/25 06/14/25 11:22 16:20 MCV MCH MCHC RDW Plt Count MPV Absolute Nucleated RBC Nucleated RBC % (auto) PT INR Anion Gap Estim Creat Clear Calc Estimated GFR POC Glucose 320 H 192 H Random Glucose Calcium Magnesium Total Bilirubin AST ALT Alkaline Phosphatase Lactate Dehydrogenase Total Protein Albumin Microbiology Microbiology Results: Microbiology 06/09/25 19:14 Gram Stain - Final Abdominal Fluid Anaerobic Culture - Final NO GROWTH AFTER 5 DAYS Body Fluid Culture - Final No growth after 2 days Assessment and Plan (1) Thrombocytopenia: Status: Chronic (2) Cirrhosis of liver with ascites: Status: Acute Plan d6, 64yo F from LTC with schizoaffective disorder, dementia, cirrhosis complicated by esophageal varices/hepatic encephalopathy/thrombocyoptenia/anemia, and DM2 sent in for hyperglycemia and dyspnea. Found to have significant ascites and was complaining of abdominal pain, also confused. ascites due to cirrhosis - paracentesis done in ED 06/09/25, studies consistent with portal HTN and not SBP but remains on ceftriaxone for SBP prophylaxis [change to TMP-SMX upon discharge- pt has hx of SBP], resumed spironolactone + furosemide - therapeutic paracentesis 06/11 canceled due to minimal residual ascites fluid on US - monitor volume status FOBT+ - EGD canceled 06/11 due to thrombocytopenia unresponsive to transfusion, H+H stable, doubt variceal bleed, octreotide stopped; IV PPI changed to PO, continue to monitor CBC daily; GI consulted, no indication of active GIB, no indication for EGD/colonoscopy hepatic encephalopathy, resolved - continue lactulose + rifaximin - mentation appears to be back at baseline thrombocytopenia - suspect splenic sequestration though unclear why platelet count did not changeafter 3u pRBCs - hematology consulted, no indication for additional transfusion at this time unless pt is actively bleeding, needs a procedure, or platelets are less than 15 DM2 with hyperglycemia - start Lantus [on Tresiba as outpt] and continue Humalog schizoaffective disorder - haloperidol + benztropine dysphagia - PHP MYSQL WEB DEVELOPER consulted, recommend NDD3 with thin liquids; assist with set up and meds as pt prefers VTE ppx - SCDs, no heparin given thrombocyoptenia dispo - eventual return to LTC In my clinical judgment, the patient requires continued inpatient hospitalization for the following reasons: anemia/thrombocytopenia, question of GIB Quality Stroke Does the patient have a stroke diagnosis?: No Reason for No Anti-thrombotic by Day Two: Contraindicated VTE Prior VTE?: No VTE Risk Level:: Medical - moderate - high VTE Device Contraindication: N/A - Device Ordered VTE Drug Contraindication: Treatment Not Indicated
[2025-06-14 19:57] VITALS: BP 121/58; PULSE 87; RESP 20; TEMP 36.6; O2SAT 99
[2025-06-14 20:49] LABS: Glucose, Whole Blood 210 mg/dL (60-115)
[2025-06-14 23:31] VITALS: BP 125/61; PULSE 76; RESP 20; TEMP 36.4; O2SAT 99
[2025-06-15 03:33] VITALS: BP 120/60; PULSE 82; RESP 20; TEMP 36.4; O2SAT 98
[2025-06-15 07:29] LABS: Glucose, Whole Blood 175 mg/dL (60-115)
[2025-06-15 07:50] VITALS: BP 128/60; PULSE 86; RESP 16; TEMP 36.4; O2SAT 100
[2025-06-15] MEDS: 0.9 % Sodium Chloride Flush 3 ML SYRINGE IVFLUSH (08:07)
[2025-06-15] MEDS: Insulin Glargine,Hum.rec.anlog 100 UNIT/ML 10 ML VIAL 10 UNIT SUBCUT (09:39)
--- NOTE | 2025-06-15 09:53 | MHC.SL.SWA ---
Speech Pathologist Impression: Unspecified dysphagia, new onset per pt report Risk of Aspiration Due to: Cognitive limitations Weakness Dysphasia Diet Status: Rec NDD3 with thins, assist with meal set-up, meds as pt prefers. Liquid Consistency and Strategies for Safe Swallow: Liquid Intake Recommendation: Thin Liquid Intake Strategies: Solid Food Consistency: Dietary Recommendations: Chopped/Advanced (NDD3) Additional Modifications to Solid Foods: Oral Medication Intake: Whole with Liquid Please contact the pharmacy regarding appropriate crushable or liquid drug formulations that are available whenever modified delivery is recommended. Compensatory Strategies and Precautions to be Taken for Safe Swallow: Supervision While Eating and Drinking for Safe Swallow: Tray Set Up Foods to Avoid: Hard to chew and dry solids Swallowing Recommended Treatments: Recommendation for Speech: Inpatient Speech Therapy Comment: 06/14: Pt seen for swallow evaluation s/p choking episode on chicken while inpatient. System Safety Manager present, pt endorsed new onset dysphagia with solids but was unable to explain in detail d/t cognitive/communication challenges. OM mechanism exam WNL. Pt tolerated sips of thins by straw, purees and moistened solids with adequate oropharyngeal coordination. Pt elicited one cough s/p intake prior to speaking. Cough considered WFL as no further s/s of aspiration observed. LEAD MACHINIST provided education to pt on physiological function of swallow and airway protection. Pt verbalized understanding for simplified information. Recc NDD3 with thins, assist with meal set-up, meds as pt prefers. LEAD MACHINIST to follow in monitoring pt tolerance of least restrictive diet, teaching for compensatory strategies and educating pt in managing new onset dysphagia. LEAD MACHINIST to refer for further assessment if indicated (i.e. MBSS, GI consultation). Frequency/Duration: Daily M-F Date Range for Service Req: Timeline to reassess: Machine Baster Clinican/Clinical Fellow: No Supervisory Statement: I have reviewed and agree with the student/clinical fellow's documentation: N/A Speech Language Pathologist: Janna Lopez M.S., [facility]-LEAD MACHINIST
[2025-06-15 11:08] LABS: Glucose, Whole Blood 272 mg/dL (60-115)
--- NOTE | 2025-06-15 11:16 | MHC.CM.PN ---
CM ATTEMPTED TO CONTACT BOTH HCP'S YOUSIF/OLYA AT NUMBERS ON FILE TO DELIVER IMM, DETAIED MESSAGE LEFT W/YOUSIF HOWEVER NO ADDRESS ON FILE, CM ATTEPTED TO CONTACT [facility] [phone] HOWEVER NO ANSWER AND NO VOICEMAIL PICKED UP. PER HOSPITALIST ANTIC PT WILL BE MEDICALLY CLEARED FOR PT TO RETURN TO LTC AT [facility] [address], CM WILL REVISIT NOTIFYNG ONE OF PT'S HCPS. JENNIFER FOR BLS TRANSPORT
[2025-06-15 11:44] VITALS: BP 120/57; PULSE 82; RESP 18; TEMP 36.4; O2SAT 99
--- NOTE | 2025-06-15 13:10 | MHC.SL.SWA ---
Speech Pathologist Impression: Risk of Aspiration Due to: Dysphasia Diet Status: Recommend patient continue on Chopped/Advanced diet at next level of care, continue on thin liquids, pills whole with liquid. Liquid Consistency and Strategies for Safe Swallow: Liquid Intake Recommendation: Thin Liquid Intake Strategies: Solid Food Consistency: Dietary Recommendations: Chopped/Advanced (NDD3) Additional Modifications to Solid Foods: Cue to slow rate of ingestion, chew thoroughly. Oral Medication Intake: Whole with Liquid Please contact the pharmacy regarding appropriate crushable or liquid drug formulations that are available whenever modified delivery is recommended. Compensatory Strategies and Precautions to be Taken for Safe Swallow: Sitting Upright (90 deg) Liquids from Cup Liquids from Straw Small Bites and Sips Alternate Liquids/Solids Rate of Ingestion Change Supervision While Eating and Drinking for Safe Swallow: Intermittent Supervision Foods to Avoid: Hard to chew and dry solids Swallowing Recommended Treatments: Recommendation for Speech: Inpatient Speech Therapy Comment: Patient seen at lunch today, which, after having it set up by a friend who was present, patient was eating independently. Patient noted to eat food quickly with minimum chewing noted, and required some cuing to slow her rate. However, despite behavior, patient appeared to manage this diet texture well, with no choking or gagging noted. Patient was provided with straws for drinks and encouraged to drink, taking serial sips, but managing this as well with timely swallows. Family/friends present in room endorsed patient tends to eat very quickly and can choke at times. Patient scheduled to be discharged back to [facility] later today. Recommend patient continue on Chopped/Advanced diet at next level of care, continue on thin liquids, pills whole with liquid. Frequency/Duration: Daily M-F Date Range for Service Req: Timeline to reassess: Iron Pellet Tester Clinican/Clinical Fellow: No Supervisory Statement: I have reviewed and agree with the student/clinical fellow's documentation: N/A Speech Language Pathologist: Kari Scanlon M.A., CCC-INSPECTOR FIBROUS WALLBOARD
--- NOTE | 2025-06-15 13:55 | P.DS_ITS ---
DS: Providers Provider Date of Service: 06/15/25 Date of admission: 06/09/25 19:04 Date of discharge: 06/15/25 Primary care physician: Tono Nicole MD Consults: 06/09/25 20:12 Consult to Gastroenterology Routine Consulting Provider: Jp Lyon Reason for consultation: ? GIB known liver cirrhosis, paracentesis 06/11/25 17:03 Consult to Hematology / Oncology Routine Consulting Provider: [facility] Reason for consultation: thrombocytopenia resistant to tranfuions DS: Diagnosis Discharge Diagnosis (1) Thrombocytopenia: Status: Chronic (2) Cirrhosis of liver with ascites: Status: Acute DS: Summary Hospital Course Hospital Course: From admission HPI: Date of Service: 06/09/25 Attending physician on admission: Eun Lee Chief Complaint: hyperglycemia, SOB at rest Patient is a 64-year-old female living in a intermediate unable to provide HPI, past medical history or surgical history. After review of patient's medical records patient has a past medical history of schizoaffective disorder, dementia, hepatic encephalopathy, thrombocytopenia secondary to liver failure, cirrhosis of the liver, esophageal varices, iron deficiency anemia, insulin-dependent diabetes presents to the emergency department after being brought in by EMS for blood sugar of 398 and shortness of breath at rest. Patient was being picked up by the same EMS provider for an appointment with GI but noted that patient was extremely short of breath at rest without hypoxia. In addition they did a point of care and it was registering 398. EMS decided to take patient to the ED versus going to the appointment with GI. Blood glucose on arrival was 290. Patient's oxygenation was stable on room air. Patient noted to have significant ascites and was planned for a paracentesis on Saturday06/10/2025 as an outpatient. Patient does not have a PleurX drain in place. Per ED record patient initially was complaining of abdominal pain on arrival. Patient's baseline confused and unable to answer questions appropriately. lapping machine tender required. CT scan done in the ED noted hepatic cirrhosis with moderate abdominal pelvic ascites. Also moderate diffuse mesenteric stranding was present with the acute spontaneous peritonitis that can not be excluded. Patient was started on ceftriaxone. Plan is to admit patient for Interventional Radiology in the a.m. for paracentesis. GI will also be consulted as patient's stool for occult was positive for blood. H&H currently 8.6 and 26.1 and patent patient's platelets are 26,000. Patient overall has pancytopenia. INR 1.3. VBG reassuring pH 7.49, CO2 26, PO2 219 and bicarb 20. Renal function somewhat lower than baseline with a creatinine clearance of 50.7 and a GFR of 48. Creatinine 1.15, BUN 34. AST 48, ALT 23 and alk-phos 151. Ammonia is. 74 and patient is normally on lactulose. Troponin 3.7. Lipase 41 and beta hydroxybutyrate 0.10. Patient does not have evidence of HHS or DKA. Plan is to continue ceftriaxone, Protonix and octreotide in the ED. Hospital course: Pt was admitted to hospital for ascites in the setting of decompensated liver cirrhosis concerning for SBP. Pt was empirically treated with ceftriaxone 2 g and underwent paracentesis in the ED on 06/09; ascitic studies were negative for SBP and empiric antibiotics stopped. Pt with noted pancytopenia though stool positive for occult blood, and concern for possible GI bleed. Pt was empirically treated with IV Protonix and octreotide. For thrombocytopenia pt was transfused 3 units of platelets, though pt unresponsive to therapy and no improvement in platelet count. Was initially scheduled for EGD and colonoscopy by GI to evaluate for possible GIB, but given platelet numbers was deemed a high risk candidate. Pt did not exhibit any signs of active bleeding and H&H remain stable throat, so EGD/colonoscopy was canceled. Pt was initially encephalo pathic and ammonia elevated at 74; pt given lactulose and with improvement in mentation, and she is now back to baseline. Given patient's hemodynamic stability and now being back to baseline, she will be discharged back to [facility]. She should resume prophylactic levofloxacin 250 mg daily. Pt should follow up with GI in 1 week's time for routine post hospitalization checkup. Resume all other home medications. Rest of hospital stay detailed in problem list below. ascites due to cirrhosis - paracentesis done in ED 06/09/25, studies consistent with portal HTN and not SBP; pt was treated with 5 days of ceftriaxone 2g; will resume home levofloxacin prophylaxis and discharge; resume spironolactone + furosemide - therapeutic paracentesis 06/11 canceled due to minimal residual ascites fluid on US - monitor volume status, schedule outpatient paracentesis as warranted FOBT+ - EGD canceled 06/11 due to thrombocytopenia unresponsive to transfusion, H+H stable, doubt variceal bleed, octreotide stopped; IV PPI changed to PO, continue to monitor CBC daily; GI consulted, no indication of active GIB, no indication for EGD/colonoscopy hepatic encephalopathy, resolved - continue lactulose + rifaximin - mentation appears to be back at baseline thrombocytopenia - suspect splenic sequestration though unclear why platelet count did not changeafter 3u pRBCs - hematology consulted, no indication for additional transfusion at this time unless pt is actively bleeding, needs a procedure, or platelets are less than 15 DM2 with hyperglycemia - continue home meds schizoaffective disorder - haloperidol + benztropine dysphagia - WEIGHT AND TEST BAR CLERK consulted, recommend NDD3 with thin liquids; assist with set up and meds as pt prefers Time Attestation Discharge Coordination Time (in mins): 35 Quality: Safe Use of Opioids Does Pt have an Active Cancer Diagnosis on the Problem List?: No Quality: Stroke Does the patient have a stroke diagnosis?: No Physical Exam Exam: Exam: General: AOx3, no acute distress Resp: CTA bilaterally CVS: S1, S2, RRR GI: +BS, NT, soft, mild distention Skin: Warm, dry Neuro: Cranial nerves II-XII grossly intact bilaterally. Motor grossly intact bilaterally Extremities: No edema Psych: Flat, though cooperative Vital Signs: Vital Signs: Last Vital Signs Temp 97.6 F 06/15/25 11:44 Pulse 82 06/15/25 11:44 Resp 18 06/15/25 11:44 BP 120/57 L 06/15/25 11:44 Pulse Ox 99 06/15/25 11:44 O2 Del Method Room Air 06/15/25 11:44 BMI result Body Mass Index 32.6 DS: Data Data Completed and Pending Labs on day of discharge: Laboratory Results - last 24 hr 06/14/25 06/14/25 06/15/25 16:20 20:43 : POC Glucose 192 H 210 H 175 H 06/15/25 11:04 POC Glucose 272 H Discharge Plan Discharge Anticipated Discharge Date/Time: 06/15/25 15:30 Patient Disposition: Xfer SNF Discharge Diagnosis: Abdominal ascites Referrals: [facility] [place] [Outside] - 1 Day Referral Note: RESUMPTION OF CARE Tono Nicole MD [Primary Care Provider, Internal Medicine] - 1 Week Bobbi Roldan MD [Physician, Gastroenterology] - 1 Week Referral Note: Follow up for recent admission for ascites and paracentesis, concern for GI bleed Discharge Medications: Continued benztropine 0.5 mg Tablet 0.5 mg PO BEDTIME haloperidol 5 mg Tablet 10 mg PO BID insulin lispro [Humalog KwikPen Insulin] 100 unit/mL Insulin Pen See Protocol SUBCUT TID Protocol: Insulin Correction Scale Less than or equal to 110 ---- Give (units): 0 111 to 150 Give (units): 0 151 to 200 Give (units): 2 201 to 250 Give (units): 4 251 to 300 Give (units): 6 301 to 350 Give (units): 8 Greater than 350 Give (units): 10 Call MD if Blood Glucose > : 400 Patient Comments: pt has MD sliding scale Rx Instructions: sliding scale acetaminophen 325 mg Tablet 650 mg PO Q4H PRN (Reason: Fever Or Pain) acetaminophen 650 mg Suppository 650 mg RI Q4H PRN (Reason: Fever Or Pain) melatonin 3 mg Tablet 3 mg PO BEDTIME PRN (Reason: Sleep) bisacodyl 10 mg Suppository 10 mg RI DAILY PRN (Reason: constipation #2) Fleet Enema 19-7 gram/118 mL Enema 118 ml RI DAILY PRN (Reason: constipation #3) spironolactone 50 mg Tablet 50 mg PO DAILY naloxone [Narcan] 4 mg/actuation [place],Non-Aerosol 4 mg INTRANASAL Q3M PRN (Reason: overdose) Rx Instructions: spray 1 dose into ONE nostril; alternate nostrils w each dose until help arrives lactulose 10 gram/15 mL (15 mL) solution 30 g PO TID (DME) blood pressure monitor [Blood Pressure Kit] Kit See Rx Instructions .Route Qty: 1 0RF Rx Instructions: As directed rifaximin 550 mg tablet 550 mg PO BID 90 Days Qty: 180 0RF furosemide 40 mg tablet 60 mg PO DAILY 90 Days Qty: 135 0RF levofloxacin 250 mg tablet 250 mg PO DAILY magnesium hydroxide [Milk of Magnesia] 400 mg/5 mL suspension 30 ml PO BEDTIME PRN (Reason: constipation #1) ferrous gluconate 240 mg (27 mg iron) tablet 240 mg PO DAILY@0730 senna 8.6 mg capsule 8.6 mg PO BID PRN (Reason: Constipation) insulin degludec [Tresiba FlexTouch U-200] 200 unit/mL (3 mL) insulin pen 62 unit subcut BEDTIME (DME) FreeStyle Gurpreet 2 Sensor Kit See Rx Instructions .ROUTE Q2W Qty: 1 Rx Instructions: As directed (DME) blood-glucose meter [FreeStyle [place] Lite] Kit See Rx Instructions .ROUTE QID Qty: 1 Rx Instructions: As directed Discharge Orders: Discharge Order (Routine); Ordered 06/15/25 Ordered By: Sultana Tidwell Activity on Discharge: As tolerated Stand Alone Forms: Patient Portal Discharge page Print Language: Welsh Care Plan Goals: See below Health Concerns: Ascites Liver cirrhosis Thrombocytopenia Acute on chronic anemia GI bleed SBP Plan of Treatment: You were admitted to the hospital for ascites secondary to liver cirrhosis and underwent paracentesis on 05/16 rare 4.1L was drained. You were empirically treated for SBP but cultures of ascitic fluid were negative and antibiotics have been stopped. You were scheduled for an additional paracentesis on 06/11 that was canceled as no drainable fluid collection was found on ultrasound. You were also noted to have pancytopenia including low platelet count that was unresponsive to transfusion. Concern was for possible GI bleed, though your H&H remained stable and you did not require a blood transfusion. You were seen and evaluated by GI but did not undergo EGD colonoscopy as her H&H was stable and you were a high risk for this procedure. Currently CBC is stable and around baseline. He will be discharged back to [facility]. -- continue to monitor for ascites[facility] -- continue levofloxacin for SBP prophylaxis -- follow up with Dr. Jamar in GI in 1 week for routine post hospitalization follow-up -- repeat labs in [address] [facility] -- continue all of your other home medications Assessment: See discharge summary
[2025-06-15 15:20] VITALS: BP 116/56; PULSE 86; RESP 16; TEMP 36.6; O2SAT 100
== END 2025-06-15 15:49 | disposition skilled nursing facility (03) ==
LOC: HO.ED 19:45 → HO.EDOVER 20:01 → HO.IMC 22:45
PROVIDERS: Family Medicine; Internal Medicine Gastroenterology; Internal Medicine Medical Oncology; Nurse Practitioner Family; Physician Assistant Medical; Admitting Provider Student in an Organized Health Care Education/Training Program; Emergency Provider Emergency Medicine; PCP Family Medicine; Visit Provider Student in an Organized Health Care Education/Training Program
DX: K74.60 Unspecified cirrhosis of liver (principal); I85.11 Secondary esophageal varices with bleeding; R18.8 Other ascites; K76.6 Portal hypertension; F25.9 Schizoaffective disorder, unspecified; D69.59 Other secondary thrombocytopenia; F03.90 Unspecified dementia, unspecified severity, without behavioral disturbance, psychotic disturbance, mood disturbance, and anxiety; E11.65 Type 2 diabetes mellitus with hyperglycemia; R13.10 Dysphagia, unspecified; K76.82 Hepatic encephalopathy; Z79.4 Long term (current) use of insulin; Z79.899 Other long term (current) drug therapy
CPT/HCPCS: 36415; 71045; 74177; 80048; 80053; 80076; 82010; 82042; 82140; 82272; 82607; 82746; 82784; 82803; 82945; 82947; 83036; 83605; 83615; 83690; 83735; 84157; 84484; 85025; 85027; 85379; 85384; 85610; 85730; 86334; 86850; 86900; 86901; 87070; 87073; 87205; 89051; 92610; 93005; 99285; J0696; J2003; J2354; J2470; P9073; Q9967

== ENCOUNTER → 2025-06-09 15:39 | Outpatient (BNV) | payer MEDICAID, SELFPAY | PROVIDERS: Admitting Provider Student in an Organized Health Care Education/Training Program; Emergency Provider Emergency Medicine; PCP Family Medicine; Visit Provider Internal Medicine Cardiovascular Disease | DX: I49.1 Atrial premature depolarization (principal); I45.10 Unspecified right bundle-branch block | CPT/HCPCS: 93010 ==

== ENCOUNTER → 2025-06-09 17:15 | Outpatient (BNV) | payer MEDICAID, SELFPAY | PROVIDERS: Emergency Provider Emergency Medicine; PCP Family Medicine; Visit Provider Radiology Diagnostic Radiology | DX: K70.31 Alcoholic cirrhosis of liver with ascites (principal); J98.11 Atelectasis | CPT/HCPCS: 71045; 74177 ==

== ENCOUNTER → 2025-06-09 19:04 | Outpatient (BNV) | payer MEDICAID, SELFPAY | PROVIDERS: Admitting Provider Student in an Organized Health Care Education/Training Program; Emergency Provider Emergency Medicine; PCP Family Medicine; Visit Provider Nurse Practitioner Family | DX: D69.6 Thrombocytopenia, unspecified (principal); K74.60 Unspecified cirrhosis of liver; R18.8 Other ascites | CPT/HCPCS: 99223; 99232; 99233; 99239 ==

== ENCOUNTER → 2025-06-09 19:04 | Outpatient (BNV) | payer MEDICAID, SELFPAY | PROVIDERS: Admitting Provider Student in an Organized Health Care Education/Training Program; Emergency Provider Emergency Medicine; PCP Family Medicine; Visit Provider Internal Medicine Gastroenterology | DX: D69.6 Thrombocytopenia, unspecified (principal); K74.60 Unspecified cirrhosis of liver; R18.8 Other ascites; I85.00 Esophageal varices without bleeding; K76.82 Hepatic encephalopathy | CPT/HCPCS: 99222 ==

== ENCOUNTER → 2025-06-09 19:04 | Outpatient (BNV) | payer MEDICAID, SELFPAY | PROVIDERS: Admitting Provider Student in an Organized Health Care Education/Training Program; Emergency Provider Emergency Medicine; PCP Family Medicine; Visit Provider Internal Medicine Medical Oncology | DX: D61.818 Other pancytopenia (principal) | CPT/HCPCS: 99222 ==

== ENCOUNTER → 2025-06-28 09:03 | Day surgery (SDC) | payer MEDICAID, SELFPAY ==
--- OUTSIDE RECORDS SUMMARY | 2025-06-25 14:01 | XMS_ITS | Encounter Summary ---
Author Organization [employer] Address [address] [facility] [address] [place] [address] Care Team Providers Care Proof Tester Name Role Phone Ana Davis DIRECTOR CONSUMER Primary Care Provider [phone] Andree Ulloa PharmD Unavailable [phone] Jacquie Sarkar Unavailable Jacquie Sarkar Unavailable Encounter Details Date Type Department Care Team (Late st Contact Info) Description 05/14/2025 Orders Only [facility] MEDICINE [address] [place], [place] [phone] Maye Ortiz NP [address] [place], [place] [phone] Social History Tobacco Use Types Packs/Day Years [...] Description 07/16/2025 2:00 PM EDT Office Visit [facility] MEDICINE [address] [place] [address] [place], [place], [facility] [address] [place] [address] 08/04/2025 3:30 PM EDT Office Visit [facility] OPTOMETRY [address] [place] [address] Elisabeth Melchor, OD [address] [place] [address] documented as of this encounter Goals Goal [...] documented as of this encounter Care Teams Proof Tester Relationship Specialty Start Date End Date [place] FNP [address] [place] [address] PCP - General Family Medicine 04/05/22 Andree Ulloa PharmD [address] [place] [address] Pharmacist Internal Medicine 05/09/23 Jacquie Sarkar 05/20/25 06/03/25 Jacquie Sarkar 06/10/25 06/15/25 Flavia Segundo Plastic CutterPublic Health Professor 10/10/23 Gabrielle Fitch Plastic CutterPublic Health Professor 11/05/24 [employer] 02/06/25 documented as of this encounter
--- OUTSIDE RECORDS SUMMARY | 2025-06-25 14:01 | XMS_ITS | Encounter Summary ---
Author Organization [employer] Address [address] [facility] [address] [place] [address] Care Team Providers Care Customer Service Supervisor Name Role Phone [facility] Primary Care Provider [phone] Andree Ulloa PharmD Unavailable [phone] Maude Dennis RN Unavailable [phone] Jacquie Sarkar Unavailable Jacquie Sarkar Unavailable Reason for Visit * Reason Comments Med Refill Encounter Details Date Type Department Care Team (Late st Contact Info) Description 10/03/2023 Refill [facility] MED & PEDS [address] [place], [place] [phone] [facility] [address] [place] [address] Tardive dyskinesia Social History Tobacco Use Types [...] the past 12 months, has t he [employer], [employer], oil or water [employer] threatened to shut off services in your [...] Description 07/16/2025 2:00 PM EDT Office Visit [facility] MEDICINE [address] [place] [address] [place], [place], [facility] [address] [place] [address] 08/04/2025 3:30 PM EDT Office Visit [facility] OPTOMETRY [address] [place] [address] Elisabeth Melchor, OD [address] [place] [address] documented as of this encounter Goals Goal [...] documented as of this encounter Care Teams Customer Service Supervisor Relationship Specialty Start Date End Date [place] Ana [facility] [address] [place] [address] PCP - General Family Medicine 04/05/22 Andree Ulloa PharmD [address] [place] [address] Pharmacist Internal Medicine 05/09/23 Maude Dennis RN [address] [place] [id number] [employer] Safety [employer] Health TechnicianSenior Communications Specialist 08/27/24 12/22/24 Jacquie Sarkar 05/20/25 06/03/25 Jacquie Sarkar 06/10/25 06/15/25 Flavia Segundo Roll HaulerSenior Communications Specialist 10/10/23 [employer] 08/14/24 02/11/25 Gabrielle Fitch Roll HaulerSenior Communications Specialist 11/05/24 [employer] 02/06/25 documented as of this encounter
--- OUTSIDE RECORDS SUMMARY | 2025-06-25 14:01 | XMS_ITS | Clinical Summary ---
Author Organization [employer] Address [address] [facility] [address] [place] [address] Care Team Providers Care Construction Project Assistant Name Role Phone Ana Davis INTERVENTIONAL SALE CONSULTANT Primary Care Provider [phone] Andree Ulloa PharmD Unavailable [phone] Allergies Active Allergy Reactions Criticality Noted [...] complication, with long-term current use of insulin ([facility]) Administer 3 mg via 1 device into the nostril for hypoglycemia with loss of consciousness. If no response after 15 minutes administer an additional dose via 2nd device into other nostril. 2 each 1 08/28/20 23 Active Alcohol Swabs (Alcohol Prep) padsIndications :Type 2 diabetes mellitus without complication, with long-term current use of insulin (CMS/HCC) Use one pad each to prep skin prior to injection as directed 100 each 11 02/10/20 24 Active Lancets 33G miscIndications :Type [...] times daily 1 kit 05/01/20 24 Active traMADol (Ultram) 50 MG tabletIndicatio ns:Closed fracture of multiple ribs, unspecified laterality, initial encounter Take 1 tablet (50 mg) by mouth every 8 (eight) hours if needed for severe pain. 30 tablet 08/31/20 24 Active carvedilol (Coreg) 3.125 MG tabletIndicatio ns:Cirrhosis of liver with ascites, unspecified hepatic cirrhosis type (CMS/HCC) (CMS/HCC) Take 1 tablet (3.125 mg) by mouth 2 times daily. 60 tablet 11/19/19 25 026 Active furosemide (Lasix) 40 MG tabletIndicatio ns:Cirrhosis of liver with ascites, unspecified hepatic cirrhosis type (CMS/HCC) (CMS/HCC) Take 1 tablet (40 mg) by mouth Once per day. 30 tablet 11/19/19 25 Active lactulose (Chronulac) 10 GM/15ML solutionIndicat ions:Cirrhosis of liver with ascites, unspecified hepatic cirrhosis type (CMS/HCC) (CMS/HCC) Take 30 mL (20 g) by mouth 3 times daily. 946 mL 11/19/19 25 Active spironolactone (Aldactone) 50 MG tablet Take 50 mg by mouth Once per day. Active pen needle 32G x 4 mm miscIndications :Type 2 diabetes mellitus without complication, with long-term current use of insulin (CMS/HCC) Use as instructed 100 each 02/13/20 25 026 Active Lancets miscIndications :Type 2 diabetes mellitus without complication, with long-term current use of insulin (CMS/HCC) Check blood sugar three times daily 150 each 02/13/20 25 Active Alcohol Swabs (Alcohol Prep) padsIndications :Type 2 diabetes mellitus without complication, with long-term current use of insulin (CMS/HCC) Use as directed 150 each 1 /25/20 25 Active insulin lispro (HumaLOG KWIKPEN) 100 UNIT/ML injectionIndica tions:Type 2 diabetes mellitus without complication, with long-term current use of insulin (CMS/HCC) Inject 5 Units under the skin with breakfast and with evening meal. 15 mL 02/13/20 25 Active glucose blood test stripIndication s:Type 2 diabetes mellitus without complication, with long-term current use of insulin (CMS/HCC) Use as directed to check blood sugar three times daily 100 each 02/13/20 25 Active insulin degludec (Tresiba FlexTouch) 200 UNIT/ML injectionIndica tions:Type 2 diabetes mellitus without complication, with long-term current use of insulin (CMS/HCC) INJECT 58 UNITS SUBCUTANEOUSLY EVERY EVENING 9 mL 02/13/20 Active Blood Glucose Monitoring Suppl deviceIndicatio ns:Type 2 diabetes mellitus without complication, with long-term current use of insulin (CMS/HCC) Use as directed to check blood sugar three times daily 1 each 02/13/20 25 Active sulfamethoxazol e-trimethoprim (Bactrim DS) 800-160 MG tabletIndicatio ns:Cirrhosis of liver with ascites, unspecified hepatic cirrhosis type (CMS/HCC) (CMS/HCC) Take 1 tablet by mouth Once per day. 30 tablet 02/13/20 25 Active haloperidol (Haldol) 10 MG tabletIndicatio ns:Schizophreni a, unspecified type (CMS/HCC) Take 1 tablet (10 mg) by mouth 2 times daily. 60 tablet 02/13/20 25 Active ferrous gluconate (Fergon) 324 (38 Fe) MG tabletIndicatio ns:Anemia, unspecified type Take 1 tablet (324 mg) by mouth with breakfast. 30 tablet 02/13/20 25 026 Active benztropine (Cogentin) 0.5 MG tabletIndicatio ns:Schizophreni a, unspecified type (CMS/HCC) Take 1 tablet (0.5 mg) by mouth at bedtime. 30 tablet 02/13/20 25 Active lamoTRIgine (LaMICtal) 25 MG tabletIndicatio ns:Schizophreni a, unspecified type (CMS/HCC) Take 2 tablets (50 mg) by mouth at bedtime. 60 tablet 1 02/13/20 25 Active lurasidone (Latuda) 80 MG tabletIndicatio ns:Schizophreni a, unspecified type (CMS/HCC) Take 1 tablet (80 mg) by mouth in the evening. 30 tablet 1 02/13/20 25 Active Active Problems Problem Noted Date Diagnosed Date Chronic kidney disease 06/15/2024 Gait instability 03/10/2023 Overview (03/10/2023): Referred to PT 11/2022 for gait assistance evaluation Internal carotid artery stenosis, bilateral 02/19 Hyponatremia 03/10/2023 Healthcare maintenance 12/03/2022 Overview (03/10/2023): Mammo: Ordered 11/2022 Pap: Unknown. [facility]erred to [facility] 11/2022 for PMB. Ultrasound pending C-scope: 2019, precancerous polyps Cirrhosis of liver 04/21/2018 Overview (09/09/2023): Decompensated QURESHI cirrhosis MELD-Na: 16. Followed by [facility]. Paracentesis q. 2 weeks. EGD 2019 with grade II varices. Colonoscopy 2019 with polyps removed. Tubular adenoma present. Lactulose 2-3x/day for hepatic encephalopathy with goal 2-3 BM's per day. On propranolol 30mg b.I.d for varices. Lasix 100mg daily and sironolactione 150mg for ascites. Assessment & Plan (09/09/2023 3:57 PM EST): Follow up as scheduled with GI next week Will request most recent GI note Assessment & Plan (03/19/2023 5:20 PM EDT): I left message with [facility] requesting provider-provider consult given severity of ascites Follow up as scheduled with GI next week Continue medications as prescribed Assessment & Plan [...] plan. I will reach out directly to [facility] for update and recommend patient placemen ton transplant list. Patient needs care management CORRINE. Will refer again today. Plan to have extended follow up visit with patient, daughter, and care mngmt present for advanced care planning. Morbid obesity 04/21/2018 Osteoarthritis of multiple joints 04/21/2018 Schizophrenia 04/21/2018 Overview (03/10/2023): Schizophrenia c/b tardive dyskinesia. On haldol 5mg daily. Benztropine 0.5mg b.I.d for sx mngmt. Needs new psychiatrist. On wait list at [facility] in [place]. Referred to [facility] psychopharm clinic 11/2022 Assessment & Plan (05/06/2024 [...] from psych provider. Catherine was referred to [facility] on 03/31. Information given to patient with [facility] contact number to request intake for psychotherapy and psychiatry services. During today's consult, Catherine was engaged with active, reflective listening. Reviewed and assessed for risk, current stressors and triggers using open-ended questions. Pt agreed with plan to contact [facility] and will update clinician if extra support is needed for MH services. PLAN: (check all that apply) Continue with current services (defined as services in the past 12 months) . Pt was referred to [facility] on 03/31. clinician provided information and printed out letter with agency contact numbers. clinician will be available if requested during next consult. Assessment & Plan (02/12/2024 9:53 AM EDT): PLAN: (check all that apply) New/Additional Services needed Off-site services for Behavioral Health Integration Plan External OP therapy referral and OP psychiatry Referral Patient Self Plan Patient to reach out to [facility] team as needed, Comply with medication [...] 3-Significant loss of protective sensation. Eye Exam:Pending [facility] referral Lipid panel: 11/2022 ASCVD: 6.7% Statin: No ASA: No SONU/ARB: No (discontinued due to hyponatremia) Encouraged regular aerobic exercise for improved glycemic control Encouraged daily foot checks Encouraged lean protein snacks and to avoid foods high in sugar and simple carbohydrates Treatment Goals: A1c goal: <7% FBG goal: <130 2 hour post prandial goal: <180 Assessment & Plan (09/09/2023 4:10 PM EST): POC BS [facility] s/p 10 units lispro in office. UA negative for ketones. Encouraged hydration and strict ED precautions to include nausea/vomiting abdominal pain/weakness/behavior change or inability to lower BS at home. . Recheck BS at home and dose humalog per sliding scale. Suspect that CGM is not accurate for patient due to significant changes in interstitial fluid s/t low protein state with decompensated cirrhosis. Daughter may have been under dosing insulin as she was using readings from CGM which where not accurate. Will switch to glucometer readings only RESTART glipizide 10mg xr once daily Continue tresiba and sliding scale as prescribed STAT referral to [facility] DM educator Lab Results Component Value Date HGBA1C 11.6 (A) 09/02/2023 Assessment & Plan (03/19/2023 5:19 PM EDT): SWITCH to tresiba 56 units at bedtime Continue current mealtime insulin sliding scale Follow up 1 week with phone call with plan to titrate insulin up CGM once PA approved Assessment & Plan (03/10/2023 5:56 PM EDT): Lab Results Component Value Date HGBA1C 9.9 (H) 02/08/2023 Improving from >11 % 11/2022 Continue current regimen Will rx CGM Patient and daughter request that primary care handles DM moving forward and do not with to continue with [facility] endocrinology Resolved Problems Problem Noted Date Diagnosed Date Resolved Date Hypervolemia 10/17/2022 02/14/2023 Noncompliance with treatment regimen 04/01/2022 12/07/2022 Nonalcoholic steatohepatitis 04/21/2018 03/10/2023 Encounters * This document contains information received from the source organization and may not represent a complete record from that organization. Date Type Department Care Team Description 06/16/2025 Patient Outreach [facility] MEDICINE [address] [place] [phone] [place] [facility] Transition Of Care (Tcm) (HDF unscheduled ) 06/15/2025 Patient Outreach [facility] [address] [place] [address] [facility] 06/10/2025 Patient Outreach [facility] MEDICINE [address] [place] [address] [phone] [facility] 06/03/2025 Patient Outreach [facility] [address] [place] [address] [facility] 05/28/2025 Orders Only GENERIC EXTERNAL DATA DEPARTMENT Provider, Generic External Data 05/24/[address] [address] [place] [facility] Transition Of Care (Tcm) (HDF- Unscheduled -patient was transferred to a Rehab) 05/20/2025 Patient Outreach [facility] [address] [place] [address] [facility] 05/20/2025 Patient Outreach [facility] [address] [place], [place] [phone] [facility] Care Cordination (CP Care Coordination Chart Review ) 05/20/2025 Patient Outreach [facility] [address] [place] [address] [facility] 05/14/2025 Results Follow-Up [address] [address] Maye Ortiz NP Glucose, Whole Blood, CBC auto differential, Prothrombin Time-INR, Additional followed-up results: 2 05/14/[address] [address] Maye Ortiz NP 05/14/2025 Orders Only GENERIC EXTERNAL DATA DEPARTMENT Provider, Generic External Data 04/02/2025 Patient Outreach [facility] [address] [place] [address] [facility] Transition Of Care (Tcm) (HDF unscheduled) from Last 3 Months Immunizations Immunization Administration Dates Next Due Hep B, adult [...] 76 02/12/2025 1:48 PM EDT Temperature 36.6 C (97.8 F) 02/12/2025 1:48 PM EDT Respiratory Rate 20 02/12/2025 1:48 PM EDT [...] Description 07/16/2025 2:00 PM EDT Office Visit [facility] MEDICINE [address] [place] [phone] [place], [place], [facility] [address] [place] [address] 08/04/2025 3:30 PM EDT Office Visit [facility] OPTOMETRY [address] [place] [address] Tarka, Elisabeth, OD [address] [place] [address] Health Maintenance Due Date Last Done Comments CT Colonography 1961 Colonoscopy 1961 Colorectal Cancer Screening 1961 FIT DNA/Cologuard 1961 FIT 1961 FOBT 1961 Sigmoidoscopy 1961 Disability Screening 1961 Eye Exam 1971 Alcohol/Substance Use Screening 1973 Hepatitis A Vaccines (1 of 2 - Risk 2-dose series) 1980 Pap Smear 1982 Cervical Cancer Screening 1991 HPV/Cotest 1991 RSV Patients and Patients Aged 60 years or older (1 - Risk 60-74 years 1-dose series) 2021 Mammogram 08/17/2021 08/17/2019 Zoster Vaccines (2 of 2) 12/13/2022 10/18/2022 Diabetes: Foot Exam 02/09/2025 02/10/2024, 02/10/2024, 02/10/2024, Additional history exists Diabetes: Hemoglobin A1C 05/14/2025 025, 08/31/2024, 06/12/2024, Additional history exists Depression Monitoring 05/18/2025 11/18/2024, 025 COVID-19 Vaccine ( season) 2025 Influenza Vaccine (#1) 2025 , 08/31/2024, 09/02/2023, Additional history exists Lipid Panel 08/31/2025 08/31/2024, 11/21, 05/21/2022 SDOH Screening 09/07/2025 09/07/2024 Tobacco Screening 02/15/2026 02/15/2025 DTaP/Tdap/Td Vaccines (3 - Td or Tdap) [...] 023 4:12 PM EDT) No Jacob Llanos, Cesia Note: Use CGM, ensuring sensor is scanned at least once every 8 hours to capture 24H data. Check BG manually, as directed. Take your medications every day Lifestyle Worsening( 4:12 PM EDT) No Jacob Llanos PharmD Hemoglobin A1c < 8 Result Component 10.4(02/13/20 2:34 PM EDT) No Andree Ulloa PharmD Procedures Procedure Name Priority Date/Time Associated Diagnosis Comments GLUCOSE, WHOLE BLOOD Routine 05/28/2025 9:37 AM EDT US ABDOMEN LIMITED Routine 05/28/2025 9: 31 AM EDT US GUIDED ABDOMINAL PARACENTESIS Routine 05/28/2025 9:31 AM EDT US GUIDED ABDOMINAL PARACENTESIS Routine 05/14/2025 11:00 AM EDT BASIC METABOLIC PANEL Routine 05/14/2025 9:34 AM EDT APTT Routine 05/14/2025 9:34 AM EDT PROTHROMBIN TIME-INR Routine 05/14/2025 9:34 AM EDT CBC WITH AUTO DIFFERENTIAL Routine 05/14/2025 9:34 AM EDT GLUCOSE, WHOLE BLOOD Routine 05/14/2025 9:32 AM EDT POCT GLYCATED HEMOGLOBIN, TOTAL Routine 02/12/2025 2:34 [...] Relevant to Health Maintenance Results * (ABNORMAL) Glucose, Whole Blood (05/28/2025 9:37 AM EDT) Only the most recent of2 resultswithin the time period is included. Glucose, Whole Blood 231(H) 60 - 115 mg/dL [facility] Comment:METER #: [id number] 05/28/2025 9:37 AM EDT 05/28/2025 9:40 AM EDT us Generic External Data Provider LAB BLOOD ORDERAB LES Final Result Performing Organization Address [facility] Co de Phone Number [facility] [address] [place] [phone] * US guided abdominal paracentesis (05/28/2025 9:31 AM EDT) Only the most recent of2 resultswithin the time period is included. Anatomical Region Laterality Modality Abdomen Ultrasound 05/28/2025 9:31 AM EDT Narrative 05/28/2025 2:16 PM EDT [address] [address] Ultrasound Report Signed Patient: Catherine Stern MR#: [id number] : 1960 Acct:[id number] Age/Sex: 64 / F ADM Date: 05/28/25 Loc: HO.SSS Attending Dr: Mallorie Watson NP Ordering Physician: Mallorie Watson NP Date of Service: 05/28/25 Procedure(s): US paracentesis abd w/image Accession Number(s): [id number] cc: Mallorie Watson INSTRUMENT REPA[employer]ER [employer]; [facility] EXAMINATION: US GUIDED PARACENTESIS CLINICAL INFORMATION: Ascites. COMPARISON: None available. TECHNIQUE: Limited ultrasound imaging was performed of the abdomen. There is minimal fluid in the right upper quadrant and mid quadrant. No fluid is seen in the left abdomen. FINDINGS/ US/US paracentesis abd w/image IMPRESSION: There is not enough of fluid seen in abdomen for therapeutic paracentesis. The paracentesis was canceled . Electronically signed by: Anderson Paz MD 05/28/2025 02:14 PM EDT RP Dictated By: Anderson Paz MD Signed By: <Electronically signed by Anderson Paz MD in OV> 05/28/25 1414 DD/ 0931 TD/TT: 05/28/25 1049 Computer Systems Hardware Analyst: [facility] Procedure Note Donotuseinterpreter, Image - 05/28/2025 [place] [address] Ultrasound Report Signed Patient: Maki Stern#: [id number] : 1960cct:[id number] Age/Sex: 64 / FADM Date: 05/28/25 Loc: HO.[facility] Attending Dr: Mallorie Watson NP Ordering Physician: Mallorie Watson NP Date of Service: 05/28/25 Procedure(s): US paracentesis abd w/image Accession Number(s): [id number] cc: Mallorie Watson NP; [facility] EXAMINATION: US GUIDED PARACENTESIS CLINICAL INFORMATION: Ascites. COMPARISON: None available. TECHNIQUE: Limited ultrasound imaging was performed of the abdomen. There is minimal fluid in the right upper quadrant and mid quadrant. No fluid is seen in the left abdomen. FINDINGS/ US/US paracentesis abd w/image IMPRESSION: There is not enough of fluid seen in abdomen for therapeutic paracentesis. The paracentesis was canceled . Electronically signed by: Anderson Paz MD 05/28/2025 02:14 PM EDT RP Dictated By: Anderson Paz MD Signed By: <Electronically signed by Anderson Paz MD in OV> 05/28/25 1414 DD/ 0 TD/TT: 05/28/25 1049 Computer Systems Hardware Analyst: [employer] us [facility] External Provider IMG US PROCEDURES Final Result * US Abdomen Limited (05/28/2025 9:31 AM EDT) Anatomical Region Laterality Modality Abdomen Ultrasound 05/28/2025 9:31 AM EDT Narrative 06/11/2025 8:40 AM EDT [address] [address] Ultrasound Report Signed Patient: Catherine tSern MR#: [id number] : 1960 Acct:[id number] Age/Sex: 64 / F ADM Date: 05/28/25 Loc: [facility] Attending Dr: Mallorie Watson NP Ordering Physician: Mallorie Watson NP Date of Service: 05/28/25 Procedure(s): US abdomen limited Accession Number(s): [id number] cc: Mallorie Watson INSTRUMENT REPA[employer]; [facility] EXAMINATION: US GUIDED PARACENTESIS CLINICAL INFORMATION: Ascites. COMPARISON: None available. TECHNIQUE: Limited ultrasound imaging was performed of the abdomen. There is minimal fluid in the right upper quadrant and mid quadrant. No fluid is seen in the left abdomen. FINDINGS/ US/US abdomen limited IMPRESSION: There is not enough of fluid seen in abdomen for therapeutic paracentesis. The paracentesis was canceled . Electronically signed by: Anderson Paz MD 05/28/2025 02:14 PM EDT Dictated By: Anderson Paz MD Signed By: 06/11/25 0840 DD/ 0 TD/TT: 05/28/259 Computer Systems Hardware Analyst: [employer] Procedure Note Donotuseinterpreter, Image - 06/11/[address] [address] Ultrasound Report Signed Patient: Alicia SternnMR#: [id number] : 1960cct:[id number] Age/Sex: 64 / FADM Date: 05/28/25 Loc: HO.SSS Attending Dr: Mallorie Watson NP Ordering Physician: Mallorie Watson NP Date of Service: 05/28/25 Procedure(s): US abdomen limited Accession Number(s): [id number] cc: Mallorie Watson INSTRUMENT REPAIRER [employer]; [facility] EXAMINATION: US GUIDED PARACENTESIS CLINICAL INFORMATION: Ascites. COMPARISON: None available. TECHNIQUE: Limited ultrasound imaging was performed of the abdomen. There is minimal fluid in the right upper quadrant and mid quadrant. No fluid is seen in the left abdomen. FINDINGS/ US/US abdomen limited IMPRESSION: There is not enough of fluid seen in abdomen for therapeutic paracentesis. The paracentesis was canceled . Electronically signed by: Anderson Paz MD 05/28/2025 02:14 PM EDT RP Dictated By: Anderson Paz MD Signed By:06/11/25 0840 DD/ 0931 TD/TT: 05/28/25 1049 Computer Systems Hardware Analyst: KIT us [facility] External Provider IMG US PROCEDURES Final Result * (ABNORMAL) CBC auto differential (05/14/2025 9:34 AM EDT) White Blood Count 3.2(L) 4.8 - 10.8 X10*3/uL [facility] Red Blood Count 2.55(L) 4.20 - 5.50 X10*6/uL [facility] Hemoglobin 8.0(L) 12.0 - 16.0 g/dl [facility] Hematocrit 23.4(L) 37.0 - 47.0 % [facility] Mean Corpuscular Volume 91.8 80.0 - 98.0 fL [facility] Mean Corpuscular Hemoglobin 31.4 27.0 - 33.0 pg [facility] Mean Corpuscular HGB Conc 34.2 31.0 - 35.0 g/dl [facility] Red Cell Distribution Width 14.8 11.0 - 16.0 % [facility] Platelet Count 22(L) 160 - 400 X10*3/uL [facility] Mean Platelet Volume 10.2 9.4 - 12.3 fL [facility] Neutrophils Percent Auto 67.5 45 - 73 % [facility] Imm Gran Pct Auto 0.9(H) 0.0 - 0.4 % [facility] Lymphocytes Percent Auto 11.6(L) 20 - 40 % [facility] Monocytes Percent Auto 7.8 2 - 11 % [facility] Eosinophils Percent Auto 11.6(H) 0 - 4 % [facility] Basophils Percent Auto 0.6 0 - 2 % [facility] NRBC Pct Auto 0.0 0.0 - 0.2 /100WBC [facility] Neutrophils Absolute Auto 2.2 2.0 - 8.3 x10*3/uL [facility] Imm Gran Abs Auto 0.03 0.00 - 0.03 X10*3/uL [facility] Lymphocytes Absolute Auto 0.4(L) 1.2 - 4.9 X10*3/uL [facility] Monocytes Absolute Auto 0.3 0.1 - 1.2 X10*3/uL [facility] Eosinophils Absolute Auto 0.4 0.0 - 0.4 X10*3/uL [facility] Basophils Absolute Auto 0.0 0.0 - 0.2 X10*3/uL [facility] NRBC Abs Auto 0.000 0.0 - 0.012 X10*3/uL [facility] 05/14/2025 9:34 AM EDT 05/14/2025 9:37 AM EDT us Generic External Data Provider LAB BLOOD ORDERAB LES Final Result [facility] [address] [place] [phone] [phone] * Partial Thromboplastin Time, Activated (APTT) (05/14/2025 9:34 AM EDT) Pathologist [facility] Partial Thromboplastin Time 30.3 26.0 - 36.8 SEC [facility] Comment:For information rega rding the monitoring of direct thrombininhibitors, please refer to Pharmacy. 05/14/2025 9:34 AM EDT 05/14/2025 9:37 AM EDT Generic External Data Provider LAB BLOOD ORDERAB LES Final Result Performing Organization Address [facility]/ZIP Co de Phone Number [facility] [address] [place] [phone] * (ABNORMAL) Prothrombin Time-INR (05/14/2025 9:34 AM EDT) [facility] Prothrombin Time 15.2(H) 10.9 - 12.4 SEC [facility] INTERNATIONAL NORM RATIO 1.3(H) 0.9 - 1.1 [facility] Comment:INTERNATIONAL NORMAL IZED RATIO (INR) REFERENCE RANGES Reference RangeFor patients not on anticoagulant therapy: 0.9 - 1.1INR ranges for oral anticoagulanttherapy:For prevention and treatment of venous thrombosis and pulmonary embolism: 2.0 - 3.0For acute myocardial infarction with aspirin therapy: 2.0 - 3.0For acute myocardial infarction without aspirin therapy: 3.0 - 4.0For patients with mechanical prosthetic heart valves: 2.5 - 3.5 05/14/2025 9:34 AM EDT 05/14/2025 9:37 AM EDT [employer] External Data Provider LAB BLOOD ORDERAB LES Final Result Performing Organization Address [facility] Co de Phone Number [facility] [address] [place] [phone] * (ABNORMAL) Basic Metabolic Panel (05/14/2025 9:34 AM EDT) [facility] Sodium 140 135 - 145 mmol/L [facility] Potassium 4.4 3.3 - 5.1 mmol/L [facility] Chloride 114(H) 96 - 108 mmol/L [facility] Carbon Dioxide 20(L) 22 - 29 mmol/L [facility] [facility] Anion Gap 10(L) 12 - 20 [facility] Urea Nitrogen (BUN) 27(H) 9 - 16 mg/dL [facility] Creatinine, Serum 1.07 0.5 - 1.4 mg/dL [facility] Creatinine Clr Calc Pharmacy 55.6 [facility] Comment:Provided height and weight: 157.48 cm,88.6 kg.eGFR (calculated from the MDRD study equation) and eCrCl(calculated from the Cockcroft-Gault equation) are based ondifferent parameters and may not yield comparable results.If eCrCl result is absurd, please check patient'sheight/weight. Estimated Glomerular Filt Rate 52 [facility] Comment:Chronic Kidney Disea se: Estimated GFR < 60 mL/min/1.17r3Romlzd Kidney Disease: Estimated GFR < 15 mL/min/1.73m2 Glucose 242(H) 60 - 115 mg/dL [facility] Calcium 7.9(L) 8.4 - 10.2 mg/dL [facility] 05/14/2025 9:34 AM EDT 05/14/2025 9:37 AM EDT [employer] External Data Provider LAB BLOOD ORDERAB LES Final Result [facility] [address] [place] [phone] * (ABNORMAL) POCT HGB A1C (02/12/2025 2:34 PM EDT) Hemoglobin A1C 10.4(A) 4.0 - 6.0 % QC Media Lot # [id number] Lot# Expiration Date [id number] Blood 02/12/2025 2:34 PM EDT [facility] INTERVENTIONAL SALE CONSULTANT POINT OF CARE TEST ENTER/EDIT ORDERABLES Final Result * Lipid Panel, Standard (08/31/2024 11:55 AM EST) Triglycerides 53 <150 mg/dL [facility] Comment:Desirable Triglyceri de: less than 150 mg/dLBorderline High Triglyceride 150-199 mg/dLHigh Triglyceride: 200-499 mg/dLVery High Triglyceride: greater than or equal to 5OO mg/dL Cholesterol 132 <200 mg/dL [facility] Comment:Desirable Cholestero l: less than 200 mg/dLBorderline High Cholesterol: 200-239 mg/dLHigh Cholesterol: greater than 239 mg/dL LDL Cholesterol Calculated 74 <100 mg/dL [facility] Comment:Desirable LDL: less than 100 mg/dLNear Optimal/Above Optimal LDL: 110- 129 mg/dLBorderline High LDL: 130-159 mg/dLHigh LDL: 160-189 mg/dLVery High LDL: greater than or equal to 190 mg/dL HDL Cholesterol 48 >40 mg/dL [facility] Comment:Desirable HDL: great er than 40 mg/dL Note: This HDL assay may give artificially low results in patients with liver disease. Blood Venous blood specimen / Unknown 08/31/2024 11:55 AM EST 08/31/2024 1:07 PM EST [facility] LAB BLOOD ORDERABLES Final Re sult [facility] [address] [place] [address] [phone] * Hepatitis C Antibody with Reflex to HCV, RNA, Quantitative, Real-Time PCR (12/03/2022 11:57 AM EST) Hepatitis C Antibody NON-REACT LAURA NON-REACT LAURA [employer] Index 0.18 <1.00 [employer] Comment: HCV antibody was non-reactive. There is no laboratory evidence of HCV infection. In most cases, no further action is required. However, if recent HCV exposure is suspected, a test for HCV RNA (test code 73014) is suggested. For additional information please refer to http://education.Auto Secure/faq/ZHJ44f7 (This link is being provided for informational/ educational purposes only.) Blood Venous blood specimen / Unknown 12/03/2022 11:57 AM EST 12/03/2022 11:58 AM EST Narrative [facility]ST - 12/04/2022 2:01 AM EST FASTING:NO FASTING: NO [facility] LAB BLOOD ORDERABLES Final Re sult Performing Organization Address City/[facility]/ZIP Co de Phone Number [employer] [address] [place] [address], [place] [address] [employer] [address] [facility], (Nl2) [place] [address] * HIV-1/2 Antigen and Antibodies, Fourth Generation, with Reflexes (12/03/2022 11:57 AM EST) HIV Antigen/Antibody, 4th Generation NON-REAC TIVE NON-REAC TIVE [employer] [facility] Comment: HIV-1 antigen and HIV-1/HIV-2 antibodies were not detected. There is no laboratory evidence of HIV infection. PLEASE NOTE: This information has been disclosed to you from records whose confidentiality may be protected by state law. If your state requires such protection, then the state law prohibits you from making any further disclosure of the information without the specific written consent of the person to whom it pertains, or as otherwise permitted by law. A general authorization for the release of medical or other information is NOT sufficient for this purpose. For additional information please refer to http://education.Beyond Credentials.[employer] Technology/faq/FPW637 (This link is being provided for informational/ educational purposes only.) The performance of this assay has not been clinically validated in patients less than 2 years old. Blood Venous blood specimen / Unknown 12/03/2022 11:57 AM EST 12/03/2022 11:58 AM EST Narrative [facility] - 12/04/2022 2:01 AM EST FASTING:NO FASTING: NO [facility] LAB BLOOD ORDERABLES Final Re sult [employer] [address] [place] [address], [place] [address] [employer] [facility] [address] [facility], (Nl2) [place] [address] * DIGITAL BILATERAL SCREEN 1 (08/17/2019 4:20 PM EDT) Anatomical Region Laterality Modality Breast Bilateral Mammography 08/17/2019 4:20 PM EDT Narrative 08/17/2019 4:22 PM EDT Refer to the Notes tab for result details [facility] Procedure: DIGITAL BILATERAL SCREEN 1 Procedure Note Provider, MD Paulo - 01/12/2023 Refer to the Notes tab for result details [facility] Procedure: DIGITAL BILATERAL SCREEN 1 Yash Arredondo INTERVENTIONAL SALE CONSULTANT IMG BI PROCEDURES Final Result from Last 3 Months or Most Recently Relevant to Health Maintenance Insurance [employer] C3 Care Teams Construction Project Assistant Relationship Specialty Start Date End Date [place] Ana, INTERVENTIONAL SALE CONSULTANT [address] [place] [address] PCP - General Family Medicine 04/05/22 Andree Ulloa, ChelyD [address] [place] [address] Pharmacist Internal Medicine 05/09/23 Flavia Segundo Concrete Precast MoulderPersonal Care Worker 10/10/23 Gabrielle Fitch Concrete Precast MoulderPersonal Care Worker 11/05/24 [employer] 02/06/25
--- OUTSIDE RECORDS SUMMARY | 2025-06-25 14:01 | XMS_ITS | Clinical Summary ---
Author Organization [facility] Address [address] [place] [address] Care Team Providers Care Ship Joiner Name Role Phone Unavailable Primary Care Provider Unavailabl e Source Comments PLEASE NOTE, if this patient is a minor, it may be UNLAWFUL to discuss sensitive information that is contained in these records (such as FAMILY PLANNING, MENTAL HEALTH or SUBSTANCE ABUSE) with the minor patient's parent or other person without the patient's specific authorization.[facility] Social History Tobacco Use Types Packs/Day Years Used Date Smoking Tobacco: Never Assessed Comments Unknown Sex and Gender Information Value Date Recorded Sex Assigned at Female 06/11/2025 9:40 AM PDT Legal Sex Female 9:40 AM PDT Gender Identity Female 06/11/2025 9:40 AM PDT Sexual Orientation Not on file Plan of Treatment Upcoming Encounters Date Type Department Care Team (Late st Contact Info) Description 08/05/2025 3:00 PM EDT Behavioral Health Visit [facility] [address] [place] [address] Dorota Glover APRN [address] [place] [address] Health Maintenance Due Date Last Done Comments Anxiety Screening 1961 HPV Screening 1961 Pap + HPV 1961 Tobacco Screening 1961 Hypertension Screening (#1) 1979 Cervical Cancer Screening [address] Colonography 2006 Colonoscopy 2006 Colorectal Cancer Screening 2006 FIT/gFOBT 2006 Fecal DNA 2006 Flexible Sigmoidoscopy 2006 Breast Cancer Screening (Mammogram) 08/17/2021 08/17/2019 Imm-Zoster, Recombinant (2 of 2) 12/13/2022 10/18/20 22 Alcohol and Drug Screen 10/21/2024 Depression Annual Screen 10/21/2024 Dun-DTITE-08 ( season) 2025 Imm-Influenza (#1) 2025 08/31/2024, 1 11/02/2022, 10/05/2022, Additional history exists Diabetes Screening 05/14/2028 05/14/2025, 02/12/2025 Lipid Screening 08/31/2029 08/31/2024 Imm-DTaP/Tdap/Td (3 - Td or Tdap) 12/03/2032 12/03/2022, 11/27/2012, 12/01/1997 HIV Screening Completed 12/03/2022, 12/03/2022 Hepatitis C Screening Completed 12/03/2022 Imm-Pneumococcal 50+ Completed 12/03/2022, 07/29/2013, 02/17/2007 Cervical Ablation/Cold-Knife Conization Discontinued Cervical Cryotherapy Discontinued Colposcopy Discontinued Endometrial Biopsy Discontinued Excision/Leep Discontinued HPV Genotyping Discontinued Vaginal Pap Discontinued Vulvoscopy Discontinued Insurance [facility]
--- OUTSIDE RECORDS SUMMARY | 2025-06-25 14:01 | XMS_ITS | Encounter Summary ---
Author Organization [employer] Address [address] [facility] 7t [place] [address] Care Team Providers Care Rn Military Name Role Phone [facility] Primary Care Provider [phone] Andree Ulloa PharmD Unavailable [phone] Maude Dennis RN Unavailable [phone] Jacquie Sarkar Unavailable Jacquie Sarkar Unavailable Reason for Visit * Reason Onset Date Comments requesting a call back 02/05/2023 Encounter Details Date Type Department Care Team ([facility] st Contact Info) Description 02/05/2023 Telephone [facility] [address] [place], [place] [phone] [facility] [address] [place] [address] requesting a call back Social History Tobacco [...] . States needs to return them to [facility] . documented in this encounter Plan of Treatment Upcoming Encounters Date Type Department Care Team (Late st Contact Info) Description 07/16/2025 2:00 PM EDT Office Visit [facility] MEDICINE [address] [place] [address] [place] [facility] [address] [place] [address] 08/04/2025 3:30 PM EDT Office Visit [facility] OPTOMETRY [address] [place] [address] Tarka, Elisabeth, OD [address] [place] [address] documented as of this encounter Visit Diagnoses Not on filedocumented in this encounter Additional Health Concerns Assessment Noted Time PHQ-9 Depression Total Score: 0 12/03/19 23 10:53 AM EST documented as of this encounter Care Teams Rn Military Relationship Specialty Start Date End Date [place] le[place] [facility] [address] [place] [address] PCP - General Family Medicine 04/05/22 Andree Ulloa PharmD [address] [place] [address] Pharmacist Internal Medicine 05/09/23 Maude Dennis, MARQUITA [address] [place] [phone] Embedded Linux DeveloperProgram Manager Transportation 08/27/24 12/22/24 Jacquie Sarkar 05/20/25 06/03/25 Jacquie Sarkar 06/10/25 06/15/25 Flavia Segundo Quill ReamerProgram Manager Transportation 10/10/23 [employer] 08/14/24 02/11/25 Gabrielle Fitch Quill ReamerProgram Manager Transportation 11/05/24 [employer] 02/06/25 documented as of this encounter
--- OUTSIDE RECORDS SUMMARY | 2025-06-25 14:01 | XMS_ITS | Encounter Summary ---
Author Organization [employer] Address [address] [facility] 7t [place] [address] Care Team Providers Care Emergency Services Director Name Role Phone [facility] Primary Care Provider [phone] Andree Ulloa PharmD Unavailable [phone] Maude Dennis RN Unavailable [phone] Jacquie Sarkar Unavailable Jacquie Sarkar Unavailable Reason for Visit * Reason Comments Med Refill Encounter Details Date Type Department Care Team (Late st Contact Info) Description 10/03/2023 Refill [facility]S [address] [place], [place] [phone] [facility] [address] [place] [address] Schizophrenia, unspecified type (CMS/HCC) Social History Tobacco [...] the past 12 months, has t he [employer], [employer], oil or water ICU [employer] threatened to shut off services in your [...] 2:00 PM EDT Office Visit [facility] MEDICINE [address] [place] [address] [place], Ana, [facility] [address] [place] [address] 08/04/2025 3:30 PM EDT Office Visit [facility] OPTOMETRY [address] [place] [address] Elisabeth Melchor, OD [address] [place] [address] documented as of this encounter Goals Goal Patient Goal Type Associated Problems Recent Progress Patient-Stated? Author Check your blood sugar as directed General On track( 023 4:12 PM EDT) Jacob Pagan, PharmD Note: Use CGM, ensuring sensor is [...] documented as of this encounter Care Teams Emergency Services Director Relationship Specialty Start Date End Date [place] KAROLINA Perez [address] [place] [address] PCP - General Family Medicine 04/05/22 Andree Ulloa PharmD [address] [place] [address] Pharmacist Internal Medicine 05/09/23 Maude Dennis RN [address] [place] [address] Furnace Process Plant OperatorMechanical Technical Service Specialist 08/27/24 12/22/24 Jacquie Sarkar 05/20/25 06/03/25 Jacquie Sarkar 06/10/25 06/15/25 Flavia Segundo Top Bottom Attaching Machine OperatorMechanical Technical Service Specialist 10/10/23 [employer] 08/14/24 02/11/25 Gabrielle Fitch Top Bottom Attaching Machine OperatorMechanical Technical Service Specialist 11/05/24 [employer] 02/06/25 documented as of this encounter
--- OUTSIDE RECORDS SUMMARY | 2025-06-25 14:01 | XMS_ITS | Encounter Summary ---
Author Organization [employer] Address [address] [facility] 7t [place] [address] Care Team Providers Care Steam Plant Operator Name Role Phone Ana Davis ANALYTICAL CHEMISTRY TEACHER Primary Care Provider [phone] Andree Ulloa PharmD Unavailable [phone] Jacquie Sarkar Unavailable Jacquie Sarkar Unavailable Encounter Details Date Type Department Care Team (Late st Contact Info) Description 05/14/2025 Results Follow-Up [facility] [address] [place], [place] [phone] Maye Ortiz NP [address] [place] [address] Glucose, Whole Blood, CBC auto differential, Prothrombin Time-INR, Additional followed-up results: 2 Social History Tobacco Use Types Packs/Day Years [...] Description 07/16/2025 2:00 PM EDT Office Visit [facility] [address] [place] [address] [facility] [address] [place] [address] 08/04/2025 3:30 PM EDT Office Visit [facility] OPTOMETRY [address] [place] [address] Elisabeth Melchor, OD [address] [place] [address] documented as of this encounter Goals Goal [...] documented as of this encounter Care Teams Steam Plant Operator Relationship Specialty Start Date End Date Ana Davis FNP [address] [place] [address] PCP - General Family Medicine 04/05/22 Andree Ulloa PharmD [address] [place] [address] Pharmacist Internal Medicine 05/09/23 Jacquie Sarkar 05/20/25 06/03/25 Jacquie Sarkar 06/10/25 06/15/25 Flavia Segundo ElectrolysistTender Coordinator 10/10/23 Gabrielle Fitch ElectrolysistTender Coordinator 11/05/24 [employer] 02/06/25 documented as of this encounter
--- OUTSIDE RECORDS SUMMARY | 2025-06-25 14:01 | XMS_ITS | Encounter Summary ---
Author Organization [email or web address] Address [address] [facility] 7t [place] [address] Care Team Providers Care Residential Service Technician Name Role Phone Ana Davis ULTRASOUND TECHNOLOGIST SONOGRAPHER Primary Care Provider [phone] Andree Ulloa PharmD Unavailable [phone] Jacquie Sarkar Unavailable Jacquie Sarkar Unavailable Reason for Referral * Consultation (Routine) - Authorized Specialty Diagnoses / Procedures Referred By Ivelisse segura Referred To Contact Pharmacy Diagnoses Type 2 diabetes mellitus without complication, with long-term current use of insulin (CMS/HCC) Catalina Mendez MD [address] [place] [address] Phone: tel: fax: Referral ID Status Reason Start Date Expiration Date Visits Requested Visits Authorized [id number] Authorized Consult and Treat 02/23/2025 02/23/2026 6 6 Encounter Details Date Type Department Care Team (Late st Contact Info) Description 02/23/2025 Orders Only [facility] [address] [place], [place] [phone] Catalina Mendez MD [address] [place], [place] [phone] Type 2 diabetes mellitus without complication, with [...] 07/16/2025 2:00 PM EDT Office Visit [facility] MEDICINE [address] [place] [address] [facility], [facility] [address] [place] [address] 08/04/2025 3:30 PM EDT Office Visit [facility] [address] [place] [address] Elisabeth Melchor, OD [address] [place] [address] Scheduled Referrals Name Type Priority Associated Diagnoses Orde r Schedule Referral to Pharmacy CDTM Outpatient Referral Routine Type 2 diabetes mellitus without complication, with long-term current use of insulin (CMS/[facility]) Ordered: 02/23/2025 documented as of this encounter [...] complication, with long-term current use of insulin (CMS/[facility])- Primary documented in this encounter Additional Health Concerns Assessment Noted Time PHQ-9 Depression Total Score: 10 025 1:44 PM EST documented as of this encounter Care Teams Residential Service Technician Relationship Specialty Start Date End Date [facility] [address] [place] [address] PCP - General Family Medicine 04/05/22 Andree Ulloa PharmD [address] [place], [place] [phone] Pharmacist Internal Medicine 05/09/23 Jacquie Sarkar 05/20/25 06/03/25 Jacquie Sarkar 06/10/25 06/15/25 Flavia Segundo Associate Music ProfessorStucco Worker 10/10/23 Gabrielle Fitch Associate Music ProfessorStucco Worker 11/05/24 [employer] 02/06/25 documented as of this encounter
--- OUTSIDE RECORDS SUMMARY | 2025-06-25 14:01 | XMS_ITS | Encounter Summary ---
Author Organization [employer] Address [address] [facility] 7t [place] [address] Care Team Providers Care Pancake Professional Name Role Phone [facility] Primary Care Provider [phone] Andree Ulloa PharmD Unavailable [phone] Maude Dennis RN Unavailable [phone] Jacquie Sarkar Unavailable Jacquie Sarkar Unavailable Encounter Details Date Type Department Care Team (Late Contact Info) Description 01/21/2023 Telephone [facility] MED[facility]INE [address] [place], [place] [phone] Kimberly Donaldson LPN Social History Tobacco Use [...] Department Care Team (Late Contact Info) Description 07/16/2025 2:00 PM EDT Office Visit [facility] MEDICINE [address] [place], [place] [phone] [place] Ana [address] [place] [address] 08/04/2025 3:30 PM EDT Office Visit [facility] [address] [place] [address] Elisabeth Melchor, OD [address] [place] [address] documented as of this encounter Visit Diagnoses Not on filedocumented in this encounter Additional Health Concerns Assessment Noted Time PHQ-9 Depression Total Score: 0 12/03/19 10:53 AM EST documented as of this encounter Care Teams Pancake Professional Relationship Specialty Start Date End Date Susan KAROLINA Perez [address] [place] [address] PCP - General Family Medicine 04/05/22 Andree Ulloa PharmD [address] [place] [address] Pharmacist Internal Medicine 05/09/23 Maude Dennis, MARQUITA [address] [place] [address] Valet RunnerCurator 08/27/24 12/22/24 Jacquie Sarkar 05/20/25 06/03/25 Jacquie Sarkar 06/10/25 06/15/25 Flavia Segundo Outside Machinist HelperCurator 10/10/23 [employer] 08/14/24 02/11/25 Gabrielle Fitch Outside Machinist HelperCurator 11/05/24 [employer] 02/06/25 documented as of this encounter
--- OUTSIDE RECORDS SUMMARY | 2025-06-25 14:01 | XMS_ITS | Clinical Summary ---
Author Organization [facility] Address [address] [place] [address] Phone Care Team Providers Care Compatibility Test Engineer Name Role Phone Yash Arredondo NP Primary Care Provider [phone] Allergies Active Allergy Reactions Criticality Noted Date [...] Decompensated QURESHI cirrhosis MELD-Na: 16. Followed by [facility]. Paracentesis q. 2 weeks. EGD 2019 with grade II varices. Colonoscopy 2019 with polyps removed. Tubular adenoma present. Lactulose 2-3x/day for hepatic encephalopathy with goal 2-3 BM's per day. On propranolol 30mg b.I.d for varices. Lasix 100mg daily and sironolactione 150mg for ascites. Thrombocytopenia (CMS/HCC V24) 04/21/2018 Surgical History Surgery Date Site/Laterality Comments OTHER SURGICAL HISTORY N/A PROCEDURE: [place] ABDOM PARACENTESIS DX/THER W/IMAGING GUIDANCE Medical History [...] Vaccines (2 of 2) 12/13/2022 10/18/2022 Diabetes: Annual Urine Albumin-Creatinine Ratio (uACR) 10/12/2024 Depression Screening 10/21/2024 COVID-19 Vaccine ( season) 2025 Influenza Vaccine (#1) 2025 , 09/02/2023, 10/05/2022, [...] mmol/L LAB CHEMISTRY METHOD 11/24/2024 8:52 PM [facility] Potassium 4.0 3.5 - 5.5 mmol/L LAB CHEMISTRY METHOD 11/24/2024 8:52 PM [facility] Chloride 103 96 - 110 mmol/L LAB CHEMISTRY METHOD 11/24/2024 8:52 PM [facility] CO2 25 21 - 32 mmol/L LAB CHEMISTRY METHOD 11/24/2024 8:52 PM [facility] Anion Gap 4 3 - 11 LAB CHEMISTRY METHOD 11/24/2024 8:52 PM [facility] Glucose 353(H) 70 - 100 mg/dL LAB CHEMISTRY METHOD 11/24/2024 8:52 PM [facility] BUN 23 5 - 25 mg/dL LAB CHEMISTRY METHOD 11/24/2024 8:52 PM [facility] Creatinine 0.93 0.50 - 1.10 mg/dL LAB CHEMISTRY METHOD 11/24/2024 8:52 PM [facility] eGFR 69 >=60 mL/min/1. 73m2 LAB CHEMISTRY METHOD 11/24/2024 8:52 PM [facility] Comment:Calculation based on the Chronic Kidney Disease Epidemiology Collaboration (CKD-EPI) equation refit without adjustment for race. BUN/Creatinine Ratio 24.7 LAB CHEMISTRY METHOD 11/24/2024 8:52 PM [facility] Calcium 8.3(L) 8.5 - 10.5 mg/dL LAB CHEMISTRY METHOD 11/24/2024 8:52 PM [facility] AST (SGOT) 29 10 - 42 unit/L LAB CHEMISTRY METHOD 11/24/2024 8:52 PM [facility] ALT (SGPT) 29 10 - 60 unit/L LAB CHEMISTRY METHOD 11/24/2024 8:52 PM [facility] Alkaline Phosphatase 188(H) 42 - 121 unit/L LAB CHEMISTRY METHOD 11/24/2024 8:52 PM [facility] Total Protein 6.6 6.0 - 8.0 g/dL LAB CHEMISTRY METHOD 11/24/2024 8:52 PM [facility] Albumin 2.4(L) 3.2 - 5.0 g/dL LAB CHEMISTRY METHOD 11/24/2024 8:52 PM [facility] Total Bilirubin 0.9 0.0 - 1.4 mg/dL LAB CHEMISTRY METHOD 11/24/2024 8:52 PM [facility] Blood Venous blood specimen / Unknown Venipuncture / Unknown 11/24/2024 8:01 PM EST 11/24/2024 8:11 PM EST us Rigo Genao MD LAB BLOOD ORDERABLES Final Result [facility] [address] [place] [address], * Lipid panel with reflex to direct LDL (10/13/2024 5:24 AM EST) Cholesterol 125 0 - 200 mg/dL LAB CHEMISTRY METHOD 10/13/2024 6:43 AM EST [facility] Triglycerides 66 0 - 150 mg/dL LAB CHEMISTRY METHOD 10/13/2024 6:43 AM [facility] HDL 48 >=40 mg/dL LAB CHEMISTRY METHOD 10/13/2024 6:43 AM [facility] LDL Calculated 64 0 - 100 mg/dL LAB CHEMISTRY METHOD 10/13/2024 6:43 AM EST [facility] VLDL Cholesterol Luke 13.2 mg/dL LAB CHEMISTRY METHOD 10/13/2024 6:43 AM [facility] Non HDL Chol. (LDL+VLDL) 77 <145 mg/dL LAB CHEMISTRY METHOD 10/13/2024 6:43 AM [facility] Chol/HDL Ratio 2.6 0.0 - 4.4 LAB CHEMISTRY METHOD 10/13/2024 6:43 AM [facility] Blood Venous blood specimen / Unknown Venipuncture / Unknown 10/13/2024 5:24 AM EST 10/13/2024 6:07 AM EST Salena RODRIGUEZ LAB BLOOD ORDERABLES Fi nal Result [facility] [address] [place] [address], from Last 3 Months or Most Recently Relevant to Health Maintenance Insurance MEDICAID - [place] Advance Directives Documents on File Type Date Recorded Patient Electric Detector Operator Expl anation Health Care Decision (hx) [...] currently active code status orders. Care Teams Compatibility Test Engineer Relationship Specialty Start Date End Date Yash Arredondo NP [address] [place] [address] PCP - General 09/15/13
--- OUTSIDE RECORDS SUMMARY | 2025-06-25 14:01 | XMS_ITS | Encounter Summary ---
Author Organization [employer] Address [address] [facility] 7t [place] [address] Care Team Providers Care Stable Helper Name Role Phone [facility] Primary Care Provider [phone] Andree Ulloa PharmD Unavailable [phone] Maude Dennis RN Unavailable [phone] Jacquie Sarkar Unavailable Jacquie Sarkar Unavailable Reason for Visit * Reason Onset Date Comments Med Refill 08/05/2024 Encounter Details Date Type Department Care Team (Late st Contact Info) Description 08/05/2024 Telephone [facility] MEDICINE [address] [place], [place] [phone] [facility] [address] [place] [address] Med Refill Social History Tobacco Use Types [...] the past 12 months, has t he [employer], gas, oil or water [employer] threatened to shut off services in your [...] from pt requesting a HDF appt. Hospital: [facility] Date of admission: 06/23/24 Discharge date: 08/13/24 Diagnosed: Multiple fractures of the ribs documented in this encounter Plan of Treatment Upcoming Encounters Date Type Department Care Team (Late st Contact Info) Description 07/16/2025 2:00 PM EDT Office Visit [facility] MEDICINE [address] [place] [address] Susan, Ana, PUBLIC RELATIONS PROFESSIONAL [address] [place] [address] 08/04/2025 3:30 PM EDT Office Visit [facility] OPTOMETRY [address] [place] [address] Elisabeth Melchor, OD [address] [place] [address] documented as of this encounter Goals Goal [...] documented as of this encounter Care Teams Stable Helper Relationship Specialty Start Date End Date Ana Davis FNP [address] [place] [address] PCP - General Family Medicine 04/05/22 Andree Ulloa PharmD [address] [place] [address] Pharmacist Internal Medicine 05/09/23 Maude Dennis RN [address] [place] [address] Heel CementerPostpartum Nurse 08/27/24 12/22/24 Jacquie Sarkar 05/20/25 06/03/25 Jacquie Sarkar 06/10/25 06/15/25 Flavia Segundo Staff Certified Nurse MidwifePostpartum Nurse 10/10/23 [employer] 08/14/24 02/11/25 Gabrielle Fitch Staff Certified Nurse MidwifePostpartum Nurse 11/05/24 [employer] 02/06/25 documented as of this encounter
--- OUTSIDE RECORDS SUMMARY | 2025-06-25 14:01 | XMS_ITS | Clinical Summary ---
Author Organization [facility] Address [address] [facility] [address] [place] [address] Phone Care Team Providers Care Jig Bore Tool Maker Name Role Phone Unavailable Primary Care [...] morning. 3 Active Insulin Pen Needle (Pen [place] 01/03 ) 31G X 5 MM misc [...] Visit [facility] [address] [place] [address] Rigo Freed MD [address] [facility] [address] [place] [address] Health Maintenance Due Date Last [...] Years) Discontinued 12/03/2022, 07/29/2013, 02/17/2007 [place]
--- OUTSIDE RECORDS SUMMARY | 2025-06-25 14:01 | XMS_ITS | Encounter Summary ---
Author Organization [employer] Address [address] [facility] 7t [place] [address] Care Team Providers Care Link Machine Operator Name Role Phone [facility] Primary Care Provider [phone] Andree Ulloa PharmD Unavailable [phone] Jacquie Sarkar Unavailable Jacquie Sarkar Unavailable Reason for Visit * Reason Onset Date Comments Med Refill 02/09/2025 Encounter Details Date Type Department Care Team (Late st Contact Info) Description 02/09/2025 Telephone [facility] MEDICINE 230 [place], [place] [phone] [facility] 230 [place] [address] Med Refill Social History Tobacco Use Types [...] encounter Miscellaneous Notes * Telephone Encounter - Huyen Michelle - 02/22/2025 3:14 PM EDT A new referral is needed for this patient to enroll care in [facility] - Diabetes clinic. Please send at your earliest convenience. * Telephone Encounter - Reinaldo Darling - 02/09/2025 9:50 AM EDT TC from pt requesting medication refill. Medications needing refill : insulin degludec (Tresiba FlexTouch) 200 UNIT/ML injection Blood Glucose Monitoring Suppl (D-Care Glucometer) w/Device kit To be sent to: [facility]- - [place], [place] - [address] [facility] documented in this encounter Plan of Treatment Upcoming Encounters Date Type Department Care Team ([facility] st Contact Info) Description 07/16/2025 2:00 PM EDT Office Visit [facility] MEDICINE [address] [place] [address] [place] [facility] [address] [place] [address] 08/04/2025 3:30 PM EDT Office Visit [facility] OPTOMETRY [address] [place] [address] Elisabeth Melchor, OD [address] [place] [address] documented as of this encounter Goals Goal [...] documented as of this encounter Care Teams Link Machine Operator Relationship Specialty Start Date End Date [facility] [address] [place] [address] PCP - General Family Medicine 04/05/22 Andree Ulloa, PharmD [address] [place] [address] Pharmacist Internal Medicine 05/09/23 Jacquie Sarkar 05/20/25 06/03/25 Jacquie Sarkar 06/10/25 06/15/25 Flavia Segundo Buckle SorterVacation Guide 10/10/23 [employer] 08/14/24 02/11/25 Gabrielle Fitch Buckle SorterVacation Guide 11/05/24 [employer] 02/06/25 documented as of this encounter
--- OUTSIDE RECORDS SUMMARY | 2025-06-25 14:01 | XMS_ITS | Encounter Summary ---
Author Organization [employer] Address [address] [facility] 7t [place] [address] Care Team Providers Care Cable Lacer Name Role Phone [facility] Primary Care Provider [phone] Andree Ulloa PharmD Unavailable [phone] Maude Dennis RN Unavailable [phone] Jacquie Sarkar Unavailable Jacquie Sarkar Unavailable Reason for Visit * Reason Comments Med Refill Encounter Details Date Type Department Care Team (Late st Contact Info) Description 10/01/2023 Refill [facility] [address] [place], [place] [phone] [facility] 230 [place] [address] Tardive dyskinesia; Schizophrenia, unspecified type (CMS/HCC) Social [...] the past 12 months, has t he [employer], gas, oil or water company threatened to [...] 2:00 PM EDT Office Visit [facility] MEDICINE 230 [place] [address] [facility] [address] [place] [address] 08/04/2025 3:30 PM EDT Office Visit [facility] OPTOMETRY [address] [place] [address] Elisabeth Melchor, OD [address] [place] [address] documented as of this encounter Goals Goal [...] documented as of this encounter Care Teams Cable Lacer Relationship Specialty Start Date End Date Ana Davis AGILE COACH [address] [place] [address] PCP - General Family Medicine 04/05/22 Andree Ulloa PharmD [address] [place] [address] Pharmacist Internal Medicine 05/09/23 Maude Dennis, RN [address] [place] [address] Sales And Merchandising RepresentativeRegional Tanker Truck Driver 08/27/24 12/22/24 Jacquie Sarkar 05/20/25 06/03/25 Jacquie Sarkar 06/10/25 06/15/25 Flavia Segundo Operations WelderRegional Tanker Truck Driver 10/10/23 [employer] 08/14/24 02/11/25 Gabrielle Fitch Operations WelderRegional Tanker Truck Driver 11/05/24 [employer] 02/06/25 documented as of this encounter
[2025-06-25 15:03] VITALS: BMI 31.1
--- NOTE | ~2025-06-28 | US_ITS ---
EXAMINATION: US ABDOMEN HISTORY: K74.60 - Unspecified cirrhosis of liver TECHNIQUE: Real-time grayscale ultrasound imaging of the abdomen was performed and images were reviewed. COMPARISON: Correlation is made with a CT of the abdomen with contrast and a 2024. FINDINGS: Liver: The right lobe of the liver measures 14.1 cm in size. The left lobe of the liver measures 13.9 cm in size. The liver demonstrates a lobulated contour and coarsened echotexture, consistent with cirrhosis. No focal mass or intrahepatic biliary ductal dilatation is identified. There is normal hepatopedal flow in the portal vein. Gallbladder and biliary tree: The gallbladder is surgically absent. The common bile duct is normal in caliber measuring 4 mm. Kidneys: The right kidney measures 12.8 cm in length. The left kidney measures 11.8 cm in length. The kidneys are unremarkable, without evidence of masses, hydronephrosis, or calculi. Pancreas: The pancreatic head, neck, and body are unremarkable. The pancreatic tail is obscured by bowel gas. Spleen: The spleen is enlarged, measuring 18.0 cm in length. Abdominal aorta and inferior vena cava: The visualized portions of the abdominal aorta and inferior vena cava are normal in caliber. There is minimal fluid around the liver. US/US abdomen complete IMPRESSION: Cirrhosis of the liver with splenomegaly and minimal ascites. Electronically signed by: Luis Fragoso MD 06/28/2025 01:00 PM EDT
[2025-06-28 09:18] VITALS: BP 120/74; PULSE 73; RESP 18; TEMP 36.9; O2SAT 95
[2025-06-28 09:28] LABS: Glucose, Whole Blood 95 mg/dL (60-115)
== END ==
LOC: HO.SSS 09:05
PROVIDERS: PCP Registered Nurse; Visit Provider Family Medicine
DX: K74.60 Unspecified cirrhosis of liver (principal); R18.8 Other ascites; R16.1 Splenomegaly, not elsewhere classified; K76.82 Hepatic encephalopathy; K72.90 Hepatic failure, unspecified without coma; D69.6 Thrombocytopenia, unspecified; E87.5 Hyperkalemia; E87.1 Hypo-osmolality and hyponatremia; R41.82 Altered mental status, unspecified; F25.9 Schizoaffective disorder, unspecified; E11.65 Type 2 diabetes mellitus with hyperglycemia; N17.1 Acute kidney failure with acute cortical necrosis; R33.9 Retention of urine, unspecified
CPT/HCPCS: 76700; 82947

== ENCOUNTER → 2025-06-28 10:33 | Outpatient (BNV) | payer MEDICAID, SELFPAY | PROVIDERS: PCP Registered Nurse; Visit Provider Radiology Diagnostic Radiology | DX: K74.60 Unspecified cirrhosis of liver (principal); R16.1 Splenomegaly, not elsewhere classified | CPT/HCPCS: 76700 ==

== ENCOUNTER 2025-07-08 10:16 | Outpatient (REF) | payer MEDICAID, SELFPAY ==
[2025-07-08 11:54] LABS: Hematocrit 25.9 % (37.0-47.0); Hemoglobin 8.9 g/dl (12.0-16.0); Mean Corpuscular HGB Conc 34.4 g/dl (31.0-35.0); Mean Corpuscular Hemoglobin 31.6 pg (27.0-33.0); Mean Corpuscular Volume 91.8 fL (80.0-98.0); NRBC Abs Auto 0.000 X10*3/uL (0.0-0.012); NRBC Pct Auto 0.0 /100WBC (0.0-0.2); Red Blood Count 2.82 X10*6/uL (4.20-5.50); White Blood Count 3.0 X10*3/uL (4.8-10.8)
[2025-07-08 11:56] LABS: Platelet Count 22 X10*3/uL (160-400)
[2025-07-08 12:10] LABS: INTERNATIONAL NORM RATIO 1.2 (0.9-1.1); Prothrombin Time 14.2 SEC (10.9-12.4)
--- OUTSIDE RECORDS SUMMARY | 2025-07-08 12:15 | XMS_ITS | Encounter Summary ---
Author Organization [employer] Address [address] [facility] 7t [place] [address] Care Team Providers Care Human Resources Specialist Name Role Phone Ana Davis UNDERWRITING SUPPORT MANAGER Primary Care Provider [phone] Andree Ulloa PharmD Unavailable [phone] Encounter Details Date Type Department Care Team ([facility] st Contact Info) Description 07/08/2025 Orders Only GENERIC EXTERNAL DATA DEPARTMENT Provider, Generic External Data Social History Tobacco Use Types Packs/Day Years [...] Description 07/16/2025 2:00 PM EDT Office Visit [facility] MEDICINE 230 [place] [address] [place], Ana, UNDERWRITING SUPPORT MANAGER [address] [place] [address] 08/04/2025 3:30 PM EDT Office Visit [facility] OPTOMETRY [address] [place] [address] TarkaElisabeth, OD [address] [place] [address] documented as of this encounter Goals Goal [...] Procedure Name Priority Date/Time Associated Diagnosis Comments PROTHROMBIN TIME-INR Routine 07/08/2025 10:57 AM EDT CBC Routine 07/08/2025 10:57 AM EDT documented in this encounter Results * (ABNORMAL) Prothrombin Time-INR (07/08/2025 10:57 AM EDT) Pathologist [facility] Prothrombin Time 14.2(H) 10.9 - 12.4 SEC [facility] INTERNATIONAL NORM RATIO 1.2(H) 0.9 - 1.1 [facility] Comment:INTERNATIONAL NORMAL IZED RATIO (INR) REFERENCE RANGES Reference RangeFor patients not on anticoagulant therapy: 0.9 - 1.1INR ranges for oral anticoagulanttherapy:For prevention and treatment of venous thrombosis and pulmonary embolism: 2.0 - 3.0For acute myocardial infarction with aspirin therapy: 2.0 - 3.0For acute myocardial infarction without aspirin therapy: 3.0 - 4.0For patients with mechanical prosthetic heart valves: 2.5 - 3.5 07/08/2025 10:5 7 AM EDT 07/08/2025 10:57 AM EDT us Generic External Data Provider LAB BLOOD ORDERAB LES Final Result [facility] [address] [place] [phone] * (ABNORMAL) CBC (07/08/2025 10:57 AM EDT) Pathologist [facility] White Blood Count 3.0(L) 4.8 - 10.8 X10*3/uL [facility] Red Blood Count 2.82(L) 4.20 - 5.50 X10*6/uL [facility] Hemoglobin 8.9(L) 12.0 - 16.0 g/dl [facility] Hematocrit 25.9(L) 37.0 - 47.0 % [facility] Mean Corpuscular Volume 91.8 80.0 - 98.0 fL [facility] Mean Corpuscular Hemoglobin 31.6 27.0 - 33.0 pg [facility] Mean Corpuscular HGB Conc 34.4 31.0 - 35.0 g/dl [facility] Red Cell Distribution Width 14.4 11.0 - 16.0 % [facility] Platelet Count 22(L) 160 - 400 X10*3/uL [facility] Mean Platelet Volume 11.9 9.4 - 12.3 fL [facility] NRBC Pct Auto 0.0 0.0 - 0.2 /100WBC [facility] NRBC Abs Auto 0.000 0.0 - 0.012 X10*3/uL [facility] 07/08/2025 10:5 7 AM EDT 07/08/2025 10:57 AM EDT us Generic External Data Provider LAB BLOOD ORDERAB LES Final Result [facility] [address] [place] [address] [phone] documented in this encounter Visit Diagnoses Not on filedocumented in this encounter Additional Health Concerns Assessment Noted Time PHQ-9 Depression Total Score: 10 025 1:44 PM EST documented as of this encounter Care Teams Human Resources Specialist Relationship Specialty Start Date End Date Ana Davis FNP [address] [place] [address] PCP - General Family Medicine 04/05/22 Andree Ulloa PharmD [address] [place] [address] Pharmacist Internal Medicine 05/09/23 Flavia Segundo Iron BenderMetal Window Screen Assembler 10/10/23 Gabrielle Fitch Iron BenderMetal Window Screen Assembler 11/05/24 [employer] 02/06/25 documented as of this encounter
--- OUTSIDE RECORDS SUMMARY | 2025-07-08 12:15 | XMS_ITS | Encounter Summary ---
Author Organization [employer] Address [address] [facility] 7t [place] [address] Care Team Providers Care Vegetable Thinner Name Role Phone [facility] Primary Care Provider [phone] Andree Ulloa PharmD Unavailable [phone] Reason for Visit * Reason Comments Pre-visit Planning (Unable to reach for PVP screening, LVM) to be completed in office Encounter Details Date Type Department Care Team (Late st Contact Info) Description 07/08/2025 Patient Outreach [facility] MEDICINE [address] [place], [place] [phone] [facility] [address] [place] [address] Pre-visit Planning ((Unable to reach for PVP screening, LVM) to be completed in office ) Social History Tobacco Use Types Packs/Day Years [...] encounter Progress Notes * Yvette Naik - 07/08/2025 11:21 AM EDT CC Yvette. Placed outbound call to patient to complete pre-visit planning. No answer at this time. Patient name and were not confirmed. CC left voicemail requesting return call. Direct contact information provided. documented in this encounter Plan of Treatment Upcoming Encounters Date Type Department Care Team ([facility] st Contact Info) Description 07/16/2025 2:00 PM EDT Office Visit [facility] MEDICINE [address] [place] [address] [place], Ana, FIRST AID ATTENDANT [address] [place] [address] 08/04/2025 3:30 PM EDT Office Visit [facility] OPTOMETRY [address] [place] [address] Elisabeth Melchor, OD [address] [place] [address] documented as of this encounter Goals Goal [...] documented as of this encounter Care Teams Vegetable Thinner Relationship Specialty Start Date End Date Ana Davis FNP [address] [place] [address] PCP - General Family Medicine 04/05/22 Andree Ulloa PharmD [address] [place] [address] Pharmacist Internal Medicine 05/09/23 Flavia Segundo Redrying Machine OperatorFast Food Shift Supervisor 10/10/23 Gabrielle Fitch Redrying Machine OperatorFast Food Shift Supervisor 11/05/24 [employer] 02/06/25 documented as of this encounter
--- OUTSIDE RECORDS SUMMARY | 2025-07-08 12:15 | XMS_ITS | Clinical Summary ---
Author Organization [facility] Address [address] [facility] [address] [place] [address] Phone Care Team Providers Care Environmental Field Services Technician Name Role Phone Unavailable Primary Care Provider [...] morning. 3 Active Insulin Pen Needle (Pen [place] 01/03 ) 31G X 5 MM misc [...] Care Team (Late st Contact Info) Description 07/19/2025 3:00 PM EDT Office Visit [facility] [address] [place] [address] Rigo Freed MD [address] [facility] [address] [place] [address] Health Maintenance Due Date Last [...] Years) Discontinued 12/03/2022, 07/29/2013, 02/17/2007 [place]
--- OUTSIDE RECORDS SUMMARY | 2025-07-08 12:15 | XMS_ITS | Clinical Summary ---
Author Organization [employer] Address [address] [facility] [facility] [address] [place] [address] Care Team Providers Care Vice President Pharmacy Name Role Phone Ana Davis AIRPORT DRIVER Primary Care Provider [phone] Andree Ulloa PharmD Unavailable Allergies Active Allergy Reactions Criticality Noted [...] complication, with long-term current use of insulin ([facility]) Administer 3 mg via 1 device into [...] Mammo: Ordered 11/2022 Pap: Unknown. Referred to [facility] 11/2022 for PMB. Ultrasound pending C-scope: 2019, precancerous polyps Cirrhosis of liver 04/21/2018 Overview (09/09/2023): Decompensated QURESHI cirrhosis MELD-Na: 16. Followed by [facility]. [...] 5:20 PM EDT): I left message with [facility] requesting provider-provider consult given severity of [...] plan. I will reach out directly to [facility] for update and recommend patient placemen [...] Needs new psychiatrist. On wait list at [facility] in [place]. Referred to [facility] psychopharm clinic 11/2022 Assessment & Plan [...] from psych provider. Catherine was referred to [facility] on 03/31. Information given to patient with [facility] contact number to request intake for psychotherapy and psychiatry services. During today's consult, Catherine was engaged with active, reflective listening. Reviewed and assessed for risk, current stressors and triggers using open-ended questions. Pt agreed with plan to contact [facility] and will update clinician if extra support is needed for MH services. PLAN: (check all that apply) Continue with current services (defined as services in the past 12 months) . Pt was referred to [facility] on 03/31. clinician provided information and printed out letter with agency contact numbers. clinician will be available if requested during next consult. Assessment & Plan (02/12/2024 9:53 AM EDT): PLAN: (check all that apply) New/Additional Services needed Off-site services for Behavioral Health Integration Plan External OP therapy referral and OP psychiatry Referral Patient Self Plan Patient to reach out to [facility] team as needed, Comply with medication [...] 3-Significant loss of protective sensation. Eye Exam:Pending [facility] referral Lipid panel: 11/2022 ASCVD: 6.7% [...] Plan (09/09/2023 4:10 PM EST): POC BS [facility] s/p 10 units lispro in office. [...] sliding scale as prescribed STAT referral to [facility] DM educator Lab Results Component Value [...] and do not with to continue with [facility] Resolved Problems Problem Noted Date Diagnosed Date Resolved Date Hypervolemia 10/17/2022 02/14/2023 Noncompliance with treatment regimen 04/01/2022 12/07/2022 Nonalcoholic steatohepatitis 04/21/2018 03/10/2023 Encounters * This document contains information received from the source organization and may not represent a complete record from that organization. Date Type Department Care Team Description 07/08/2025 Orders Only GENERIC EXTERNAL DATA DEPARTMENT Provider, Generic External Data 07/08/2025 Patient Outreach [facility] [address] [place] [address] Ana Davis FNP Pre-visit Planning ((Unable to reach for PVP screening, LVM) to be completed in office ) 06/28/2025 Orders Only GENERIC EXTERNAL DATA DEPARTMENT Provider, Generic External Data 06/16/2025 Patient Outreach [facility] [address] [place] [address] Ana Davis FNP Transition Of Care (Tcm) (HDF unscheduled ) 06/15/2025 Patient Outreach [facility] [address] [place] [address] Ana Davis FNP 06/10/2025 Patient Outreach [facility] [address] [place] [address] Ana Davis FNP 06/03/2025 Patient Outreach [facility] [address] [place] [address] [facility] 05/28/2025 Orders Only GENERIC EXTERNAL DATA DEPARTMENT Provider, Generic External Data 05/24/2025 Patient Outreach [address] [address] [facility] Transition Of Care (Tcm) (HDF- Unscheduled -patient was transferred to a Rehab) 05/20/2025 Patient Outreach [facility] [address] [place] [address] [facility] 05/20/2025 Patient Outreach [facility] [address] [place] [address] [facility] Care Cordination (CP Care Coordination Chart Review ) 05/20/2025 Patient Outreach [address] [address] [facility] 05/14/2025 Results Follow-Up [address] [address] Maye Ortiz NP Glucose, Whole Blood, CBC auto differential, Prothrombin Time-INR, Additional followed-up results: 2 05/14/2025 Orders Only [address] [address] Maye Ortiz NP 05/14/2025 Orders Only GENERIC EXTERNAL DATA DEPARTMENT Provider, Generic External Data from Last 3 Months Immunizations Immunization Administration [...] the past 12 months, has t he [employer], gas, oil or water company threatened to [...] Description 07/16/2025 2:00 PM EDT Office Visit [facility] [address] [place] [address] [facility], [facility] [address] [place] [address] 08/04/2025 3:30 PM EDT Office Visit [facility] [address] [place] [address] Elisabeth Melchor, OD [address] [place] [address] Health Maintenance Due Date Last Done Comments [...] Result Component 10.4(02/13/20 2:34 PM EDT) No PuiaAndree PharmD Procedures Procedure Name Priority Date/Time Associated Diagnosis Comments PROTHROMBIN TIME-INR Routine 07/08/2025 10:57 AM EDT CBC Routine 07/08/2025 10:57 AM EDT US ABDOMEN COMPLETE Routine 06/28/2025 1 0:44 AM EDT GLUCOSE, WHOLE BLOOD Routine 06/28/2025 9:25 AM EDT GLUCOSE, WHOLE BLOOD Routine 05/28/2025 9:37 AM [...] Relevant to Health Maintenance Results * (ABNORMAL) Prothrombin Time-INR (07/08/2025 10:57 AM EDT) Only the most recent of2 resultswithin the time period is included. Prothrombin Time 14.2(H) 10.9 - 12.4 SEC [facility] INTERNATIONAL NORM RATIO 1.2(H) 0.9 - 1.1 [facility] Comment:INTERNATIONAL NORMAL IZED RATIO (INR) [...] Provider LAB BLOOD ORDERAB LES Final Result [facility] [address] [place] [address] [phone] * (ABNORMAL) CBC (07/08/2025 10:57 AM EDT) White Blood Count 3.0(L) 4.8 - 10.8 X10*3/uL [facility] Red Blood Count 2.82(L) 4.20 - 5.50 X10*6/uL [facility] Hemoglobin 8.9(L) 12.0 - 16.0 g/dl [facility] Hematocrit 25.9(L) 37.0 - 47.0 % [facility] Mean Corpuscular Volume 91.8 80.0 - 98.0 fL [facility] Mean Corpuscular Hemoglobin 31.6 27.0 - 33.0 pg [facility] Mean Corpuscular HGB Conc 34.4 31.0 - 35.0 g/dl [facility] Red Cell Distribution Width 14.4 11.0 - 16.0 % [facility] Platelet Count 22(L) 160 - 400 X10*3/uL [facility] Mean Platelet Volume 11.9 9.4 - 12.3 fL [facility] NRBC Pct Auto 0.0 0.0 - 0.2 /100WBC [facility] NRBC Abs Auto 0.000 0.0 - 0.012 X10*3/uL [facility] 07/08/2025 10:5 7 AM EDT 07/08/2025 10:57 AM EDT us Generic External Data Provider LAB BLOOD ORDERAB LES Final Result [facility] [address] [place] [address] [phone] * US Abdomen Complete (06/28/2025 10:44 AM EDT) Anatomical Region Laterality Modality Abdomen Ultrasound 06/28/2025 10:4 4 AM EDT Narrative 06/28/2025 1:02 PM EDT [address] [address] Ultrasound Report Signed Patient: Catherine Stern MR#: [id number] : 1960 Acct:[id number] Age/Sex: 64 / F ADM Date: 06/28/25 Loc: HO.SSS Attending Dr: Tono Nicole MD Ordering Physician: Bobbi Roldan MD Date of Service: 06/28/25 Procedure(s): US abdomen complete Accession Number(s): [id number] cc: LeggettAna AIRPORT DRIVER; Bobbi Roldan MD Reason for Exam: K74.60 - Unspecified cirrhosis of liver EXAMINATION: US ABDOMEN HISTORY: K74.60 - Unspecified cirrhosis of liver TECHNIQUE: Real-time grayscale ultrasound imaging of the abdomen was performed and images were reviewed. COMPARISON: Correlation is made with a CT of the abdomen with contrast and a 2024. FINDINGS: Liver: The right lobe of the liver measures 14.1 cm in size. The left lobe of the liver measures 13.9 cm in size. The liver demonstrates a lobulated contour and coarsened echotexture, consistent with cirrhosis. No focal mass or intrahepatic biliary ductal dilatation is identified. There is normal hepatopedal flow in the portal vein. Gallbladder and biliary tree: The gallbladder is surgically absent. The common bile duct is normal in caliber measuring 4 mm. Kidneys: The right kidney measures 12.8 cm in length. The left kidney measures 11.8 cm in length. The kidneys are unremarkable, without evidence of masses, hydronephrosis, or calculi. Pancreas: The pancreatic head, neck, and body are unremarkable. The pancreatic tail is obscured by bowel gas. Spleen: The spleen is enlarged, measuring 18.0 cm in length. Abdominal aorta and inferior vena cava: The visualized portions of the abdominal aorta and inferior vena cava are normal in caliber. There is minimal fluid around the liver. US/US abdomen complete IMPRESSION: Cirrhosis of the liver with splenomegaly and minimal ascites. Electronically signed by: Luis Fragoso MD 06/28/2025 01:00 PM EDT Dictated By: Luis Fragoso MD Signed By: <Electronically signed by Luis Fragoso MD in OV> 06/28/25 1300 DD/ 1044 TD/TT: 06/28/25 1057 Solid Waste Landfill Technician: Procedure Note Shonter, Image - 06/28/[address] [address] Ultrasound Report Signed Patient: Alicia SternnMR#: [id number] : 1960cct:[id number] Age/Sex: 64 / FADM Date: 06/28/25 Loc: HO.[facility] Attending Dr: Tono Nicole MD Ordering Physician: Bobbi Roldan MD Date of Service: 06/28/25 Procedure(s): US abdomen complete Accession Number(s): [id number] cc: Ana Davis [facility]; Bobbi Roldan MD Reason for Exam: K74.60 - Unspecified cirrhosis of liver EXAMINATION: US ABDOMEN HISTORY: K74.60 - Unspecified cirrhosis of liver TECHNIQUE: Real-time grayscale ultrasound imaging of the abdomen was performed and images were reviewed. COMPARISON: Correlation is made with a CT of the abdomen with contrast and a 2024. FINDINGS: Liver: The right lobe of the liver measures 14.1 cm in size. The left lobe of the liver measures 13.9 cm in size. The liver demonstrates a lobulated contour and coarsened echotexture, consistent with cirrhosis. No focal mass or intrahepatic biliary ductal dilatation is identified. There is normal hepatopedal flow in the portal vein. Gallbladder and biliary tree: The gallbladder is surgically absent. The common bile duct is normal in caliber measuring 4 mm. Kidneys: The right kidney measures 12.8 cm in length. The left kidney measures 11.8 cm in length. The kidneys are unremarkable, without evidence of masses, hydronephrosis, or calculi. Pancreas: The pancreatic head, neck, and body are unremarkable. The pancreatic tail is obscured by bowel gas. Spleen: The spleen is enlarged, measuring 18.0 cm in length. Abdominal aorta and inferior vena cava: The visualized portions of the abdominal aorta and inferior vena cava are normal in caliber. There is minimal fluid around the liver. US/US abdomen complete IMPRESSION: Cirrhosis of the liver with splenomegaly and minimal ascites. Electronically signed by: Luis Fragoso MD 06/28/2025 01:00 PM EDT RP Dictated By: Luis Fragoso MD Signed By: <Electronically signed by Luis Fragoso MD in OV> 06/28/25 1300 DD/ 1044 TD/TT: 06/28/25 1057 Solid Waste Landfill Technician: us [facility] External Provider IMG US PROCEDURES Edited Result - Final * Glucose, Whole Blood (06/28/2025 9:25 AM EDT) Only the most recent of3 resultswithin the time period is included. Glucose, Whole Blood 95 60 - 115 mg/dL [facility] Comment:METER #: [id number] 06/28/2025 9:25 AM EDT 06/28/2025 9:28 AM EDT Generic External Data Provider LAB BLOOD ORDERAB LES Final Result [facility] [address] [place] [phone] * US guided abdominal paracentesis (05/28/2025 9:31 AM EDT) Only the most recent of2 resultswithin the time period is included. Anatomical Region Laterality Modality Abdomen Ultrasound 05/28/2025 9:31 AM EDT Narrative 05/28/2025 2:16 PM EDT [address] [address] Ultrasound Report Signed Patient: Catherine Stern MR#: [id number] : 1960 Acct:[id number] Age/Sex: 64 / F ADM Date: 05/28/25 Loc: HO.SSS Attending Dr: Mallorie Watson MENTAL HEALTH CONSULTANT Ordering Physician: Mallorie Watson NP Date of Service: 05/28/25 Procedure(s): US paracentesis abd w/image Accession Number(s): [id number] cc: Mallorie Watson MENTAL HEALTH CONSULTANT; [facility] EXAMINATION: US GUIDED PARACENTESIS CLINICAL INFORMATION: Ascites. [...] 05/28/25 1414 DD/ 0931 TD/TT: 05/28/25 1049 Solid Waste Landfill Technician: [facility] Procedure Note Donotuseinterpreter, Image - 05/28/2025 [place] [address] Ultrasound Report Signed Patient: Maki Stern#: [id number] : 1960cct:[id number] Age/Sex: 64 / FADM Date: 05/28/25 Loc: HO.[facility] Attending Dr: Mallorie Watson NP Ordering Physician: Mallorie Watson NP Date of Service: 05/28/25 Procedure(s): US paracentesis abd w/image Accession Number(s): [id number] cc: Mallorie Watson NP; [facility] EXAMINATION: US GUIDED PARACENTESIS CLINICAL INFORMATION: Ascites. [...] OV> 05/28/25 1414 DD/ 0 TD/TT: 05/28/25 104 Solid Waste Landfill Technician: KIT us [facility] External Provider IMG US PROCEDURES Final Result * US Abdomen Limited (05/28/2025 9:31 AM EDT) Anatomical Region Laterality Modality Abdomen Ultrasound 05/28/2025 9:31 AM EDT Narrative 06/11/2025 8:40 AM EDT [address] [address] Ultrasound Report Signed Patient: Catherine Stern MR#: [id number] : 1960 Acct:[id number] Age/Sex: 64 / F ADM Date: 05/28/25 Loc: .[facility] Attending Dr: Mallorie Watson NP Ordering Physician: Mallorie Watson NP Date of Service: 05/28/25 Procedure(s): US abdomen limited Accession Number(s): [id number] cc: Mallorie Watson MENTAL HEALTH CONSULTANT; [facility] EXAMINATION: US GUIDED PARACENTESIS CLINICAL INFORMATION: Ascites. [...] 02:14 PM EDT RP Dictated By: Anderson Pza MD Signed By: 06/11/25 0840 DD/ 0 TD/TT: 05/28/251048 Solid Waste Landfill Technician: KIT Procedure Note Donotuseinterpreter, Image - 06/11/[address] [address] Ultrasound Report Signed Patient: Maki Stern#: [id number] : 1960cct:[id number] Age/Sex: 64 / FADM Date: 05/28/25 Loc: HO.SSS Attending Dr: Mallorie Watson NP Ordering Physician: Mallorie Watson NP Date of Service: 05/28/25 Procedure(s): US abdomen limited Accession Number(s): [id number] cc: Mallorie Watson MENTAL HEALTH CONSULTANT; [facility] AIRPORT DRIVER EXAMINATION: US GUIDED PARACENTESIS CLINICAL INFORMATION: Ascites. [...] EDT Dictated By: Anderson Paz MD Signed By:06/11/25 0840 DD/ 0931 TD/TT: 05/28/25 1049 Solid Waste Landfill Technician: KIT us [facility] External Provider IMG US PROCEDURES Final Result * (ABNORMAL) CBC auto differential (05/14/2025 9:34 AM EDT) White Blood Count 3.2(L) 4.8 - 10.8 X10*3/uL [facility] Red Blood Count 2.55(L) 4.20 - 5.50 X10*6/uL [facility] Hemoglobin 8.0(L) 12.0 - 16.0 g/dl [facility] Hematocrit 23.4(L) 37.0 - 47.0 % [facility] Mean Corpuscular Volume 91.8 80.0 - 98.0 fL [facility] Mean Corpuscular Hemoglobin 31.4 27.0 - 33.0 pg [facility] Mean Corpuscular HGB Conc 34.2 31.0 - 35.0 g/dl [facility] Red Cell Distribution Width 14.8 11.0 - 16.0 % [facility] Platelet Count 22(L) 160 - 400 X10*3/uL [facility] Mean Platelet Volume 10.2 9.4 - 12.3 fL [facility] Neutrophils Percent Auto 67.5 45 - 73 % [facility] Imm Gran Pct Auto 0.9(H) 0.0 - 0.4 % [facility] Lymphocytes Percent Auto 11.6(L) 20 - 40 % [facility] Monocytes Percent Auto 7.8 2 - 11 % [facility] Eosinophils Percent Auto 11.6(H) 0 - 4 % [facility] Basophils Percent Auto 0.6 0 - 2 % [facility] NRBC Pct Auto 0.0 0.0 - 0.2 /100WBC [facility] Neutrophils Absolute Auto 2.2 2.0 - 8.3 x10*3/uL [facility] Imm Gran Abs Auto 0.03 0.00 - 0.03 X10*3/uL [facility] Lymphocytes Absolute Auto 0.4(L) 1.2 - 4.9 X10*3/uL [facility] Monocytes Absolute Auto 0.3 0.1 - 1.2 X10*3/uL [facility] Eosinophils Absolute Auto 0.4 0.0 - 0.4 X10*3/uL [facility] Basophils Absolute Auto 0.0 0.0 - 0.2 X10*3/uL [facility] NRBC Abs Auto 0.000 0.0 - 0.012 X10*3/uL [facility] 05/14/2025 9:34 AM EDT 05/14/2025 9:37 AM EDT us Generic External Data Provider LAB BLOOD ORDERAB LES Final Result [facility] [address] [place] [address] [phone] * Partial Thromboplastin Time, Activated (APTT) (05/14/2025 9:34 AM EDT) Partial Thromboplastin Time 30.3 26.0 - 36.8 SEC [facility] Comment:For information rega rding the monitoring of direct thrombininhibitors, please refer to Pharmacy. 05/14/2025 9:34 AM EDT 05/14/2025 9:37 AM EDT us Generic External Data Provider LAB BLOOD ORDERAB LES Final Result [facility] [address], [place] [phone] * (ABNORMAL) Basic Metabolic Panel (05/14/2025 9:34 AM EDT) Sodium 140 135 - 145 mmol/L [facility] Potassium 4.4 3.3 - 5.1 mmol/L [facility] Chloride 114(H) 96 - 108 mmol/L [facility] Carbon Dioxide 20(L) 22 - 29 mmol/L [facility] Anion Gap 10(L) 12 - 20 [facility] Urea Nitrogen (BUN) 27(H) 9 - 16 mg/dL [facility] Creatinine, Serum 1.07 0.5 - 1.4 mg/dL [facility] Creatinine Clr Calc Pharmacy 55.6 [facility] Comment:Provided height and weight: 157.48 cm,88.6 kg.eGFR (calculated from the MDRD study equation) and eCrCl(calculated from the Cockcroft-Gault equation) are based ondifferent parameters and may not yield comparable results.If eCrCl result is absurd, please check patient'sheight/weight. Estimated Glomerular Filt Rate 52 [facility] Comment:Chronic Kidney Disea se: Estimated GFR < 60 mL/min/1.35e7Wtjomr Kidney Disease: Estimated GFR < 15 mL/min/1.73m2 Glucose 242(H) 60 - 115 mg/dL [facility] Calcium 7.9(L) 8.4 - 10.2 mg/dL [facility] 05/14/2025 9:34 AM EDT 05/14/2025 9:37 AM EDT Generic External Data Provider LAB BLOOD ORDERAB LES Final Result [facility] [address] [place] [phone] * (ABNORMAL) POCT HGB A1C (02/12/2025 2:34 PM EDT) Hemoglobin A1C 10.4(A) 4.0 - 6.0 % QC Media Lot # [id number] Lot# Expiration Date Blood 02/12/2025 2:34 PM EDT [facility] AIRPORT DRIVER POINT OF CARE TEST ENTER/EDIT ORDERABLES Final Result * Lipid Panel, Standard (08/31/2024 11:55 AM EST) Triglycerides 53 <150 mg/dL [facility] Comment:Desirable Triglyceri de: less than 150 mg/dLBorderline High Triglyceride 150-199 mg/dLHigh Triglyceride: 200-499 mg/dLVery High Triglyceride: greater than or equal to 5OO mg/dL Cholesterol 132 <200 mg/dL [facility] Comment:Desirable Cholestero l: less than 200 mg/dLBorderline High Cholesterol: 200-239 mg/dLHigh Cholesterol: greater than 239 mg/dL LDL Cholesterol Calculated 74 <100 mg/dL [facility] Comment:Desirable LDL: less than 100 mg/dLNear Optimal/Above Optimal LDL: 110- 129 mg/dLBorderline High LDL: 130-159 mg/dLHigh LDL: 160-189 mg/dLVery High LDL: greater than or equal to 190 mg/dL HDL Cholesterol 48 >40 mg/dL [facility] Comment:Desirable HDL: great er than 40 mg/dL Note: This HDL assay may give artificially low results in patients with liver disease. Blood Venous blood specimen / Unknown 08/31/2024 11:55 AM EST 08/31/2024 1:07 PM EST [facility] LAB BLOOD ORDERABLES Final Re sult [facility] [address] [place] [phone] * Hepatitis C Antibody with Reflex to HCV, RNA, Quantitative, Real-Time PCR (12/03/2022 11:57 AM EST) Hepatitis C Antibody NON-REACT LAURA NON-REACT LAURA [employer] [place] [employer] Index 0.18 <1.00 [employer] [place] [employer] Comment: HCV antibody was non-reactive. There is no laboratory evidence of HCV infection. In most cases, no further action is required. However, if recent HCV exposure is suspected, a test for HCV RNA (test code 80925) is suggested. For additional information please refer to http://education.Trendy Mondays/faq/VZR80u5 (This link is being provided for informational/ educational purposes only.) Blood Venous blood specimen / Unknown 12/03/2022 11:57 AM EST 12/03/2022 11:58 AM EST Narrative [facility] - 12/04/2022 2:01 AM EST FASTING:NO FASTING: NO [facility] LAB BLOOD ORDERABLES Final Re sult Performing Organization Address City/[facility]/ZIP Co de Phone Number [facility] [address] [facility] [place] [address] [employer] [place] [employer] [address] [facility], ([address]) [place] [address] * HIV-1/2 Antigen and Antibodies, Fourth Generation, with Reflexes (12/03/2022 11:57 AM EST) HIV Antigen/Antibody, 4th Generation NON-REAC TIVE NON-REAC TIVE [employer] Comment: HIV-1 antigen and HIV-1/HIV-2 antibodies were [...] purpose. For additional information please refer to http://education.Trendy Mondays/faq/VXA211 (This link is being provided for informational/ educational purposes only.) The performance of this assay has not been clinically validated in patients less than 2 years old. Blood Venous blood specimen / Unknown 12/03/2022 11:57 AM EST 12/03/2022 11:58 AM EST Narrative [facility] - 12/04/2022 2:01 AM EST FASTING:NO FASTING: NO [facility] LAB BLOOD ORDERABLES Final Re sult [facility] [address] [place] [address] [employer] [facility] [address] [facility], ([address]) [place] [phone] * DIGITAL BILATERAL SCREEN 1 (08/17/2019 4:20 PM EDT) Anatomical Region Laterality Modality Breast Bilateral Mammography 08/17/2019 4:20 PM EDT Narrative 08/17/2019 4:22 PM EDT Refer to the Notes tab for result details [facility] Procedure: DIGITAL BILATERAL SCREEN 1 Procedure Note Provider, MD Paulo - 01/12/2023 Refer to the Notes tab for result details [facility] Procedure: DIGITAL BILATERAL SCREEN 1 Yash Arredondo AIRPORT DRIVER IMG BI PROCEDURES Final Result from Last 3 Months or Most Recently Relevant to Health Maintenance Insurance [facility] C3 Care Teams Vice President Pharmacy Relationship Specialty Start Date End Date Leggett Ana, [facility] [address] [place] [address] PCP - General Family Medicine 04/05/22 Andree Ulloa PharmD [address] [place] [address] Pharmacist Internal Medicine 05/09/23 Flavia Segundo Daycare ProviderManager Inpatient 10/10/23 Gabrielle Fitch Daycare ProviderManager Inpatient 11/05/24 Brevado 02/06/25
--- OUTSIDE RECORDS SUMMARY | 2025-07-08 12:15 | XMS_ITS | Encounter Summary ---
Author Organization [employer] Address [address] [facility] 7t [place] [address] Care Team Providers Care Counter Pocket Sewer Name Role Phone [facility] Primary Care Provider [phone] Andree Ulloa PharmD Unavailable [phone] Maude Dennis RN Unavailable [phone] Jacquie Sarkar Unavailable Jacquie Sarkar Unavailable Reason for Visit * Reason Comments Med Refill Encounter Details Date Type Department Care Team (Late st Contact Info) Description 10/03/2023 Refill [facility] MED & PEDS [address] [place], [place] [phone] [facility] 230 [place] [address] Schizophrenia, unspecified type (CMS/HCC) Social History Tobacco [...] the past 12 months, has t he [employer], [employer], oil or water [employer] threatened to shut off services in your [...] Description 07/16/2025 2:00 PM EDT Office Visit [facility] MEDICINE [address] [place] [address] [place], Ana, [facility] 230 [place] [address] 08/04/2025 3:30 PM EDT Office Visit [facility] OPTOMETRY [address] [place] [address] Elisabeth Melchor, OD [address] [place] [address] documented as of this encounter Goals Goal [...] documented as of this encounter Care Teams Counter Pocket Sewer Relationship Specialty Start Date End Date Susan KAROLINA Perez [address] [place] [address] PCP - General Family Medicine 04/05/22 Andree Ulloa PharmD [address] [place] [address] Pharmacist Internal Medicine 05/09/23 Maude Dennis RN [address] [place] [address] OphthalmologistCivil Drafting Technician 08/27/24 12/22/24 Jacquie Sarkar 05/20/25 06/03/25 Jacquie Sarkar 06/10/25 06/15/25 Flavia Segundo Preflight MechanicCivil Drafting Technician 10/10/23 [employer] 08/14/24 02/11/25 Gabrielle Fitch Preflight MechanicCivil Drafting Technician 11/05/24 [employer] 02/06/25 documented as of this encounter
--- OUTSIDE RECORDS SUMMARY | 2025-07-08 12:15 | XMS_ITS | Clinical Summary ---
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 Followed by [facility]. Paracentesis q. 2 [...] mmol/L LAB CHEMISTRY METHOD 11/24/2024 8:52 PM [facility] Potassium 4.0 3.5 - 5.5 mmol/L LAB CHEMISTRY METHOD 11/24/2024 8:52 PM [facility] Chloride 103 96 - 110 mmol/L LAB CHEMISTRY METHOD 11/24/2024 8:52 PM [facility] CO2 25 21 - 32 mmol/L LAB CHEMISTRY METHOD 11/24/2024 8:52 PM [facility] Anion Gap 4 3 - 11 LAB CHEMISTRY METHOD 11/24/2024 8:52 PM [facility] Glucose 353(H) 70 - 100 mg/dL LAB CHEMISTRY METHOD 11/24/2024 8:52 PM [facility] BUN 23 5 - 25 mg/dL LAB CHEMISTRY METHOD 11/24/2024 8:52 PM [facility] Creatinine 0.93 0.50 - 1.10 mg/dL LAB CHEMISTRY METHOD 11/24/2024 8:52 PM [facility] eGFR 69 >=60 mL/min/1. 73m2 LAB CHEMISTRY METHOD 11/24/2024 8:52 PM [facility] Comment:Calculation based on the Chronic Kidney Disease Epidemiology Collaboration (CKD-EPI) equation refit without adjustment for race. BUN/Creatinine Ratio 24.7 LAB CHEMISTRY METHOD 11/24/2024 8:52 PM [facility] Calcium 8.3(L) 8.5 - 10.5 mg/dL LAB CHEMISTRY METHOD 11/24/2024 8:52 PM [facility] AST (SGOT) 29 10 - 42 unit/L LAB CHEMISTRY METHOD 11/24/2024 8:52 PM [facility] ALT (SGPT) 29 10 - 60 unit/L LAB CHEMISTRY METHOD 11/24/2024 8:52 PM [facility] Alkaline Phosphatase 188(H) 42 - 121 unit/L LAB CHEMISTRY METHOD 11/24/2024 8:52 PM [facility] Total Protein 6.6 6.0 - 8.0 g/dL LAB CHEMISTRY METHOD 11/24/2024 8:52 PM [facility] Albumin 2.4(L) 3.2 - 5.0 g/dL LAB CHEMISTRY METHOD 11/24/2024 8:52 PM [facility] Total Bilirubin 0.9 0.0 - 1.4 mg/dL LAB CHEMISTRY METHOD 11/24/2024 8:52 PM [facility] Blood Venous blood specimen / Unknown Venipuncture / Unknown 11/24/2024 8:01 PM EST 11/24/2024 8:11 PM EST us Rigo Genao MD LAB BLOOD ORDERABLES Final Result [facility] [address] [place] [address], * Lipid panel with reflex to direct LDL (10/13/2024 5:24 AM EST) Cholesterol 125 0 - 200 mg/dL LAB CHEMISTRY METHOD 10/13/2024 6:43 AM EST [facility] Triglycerides 66 0 - 150 mg/dL LAB CHEMISTRY METHOD 10/13/2024 6:43 AM [facility] HDL 48 >=40 mg/dL LAB CHEMISTRY METHOD 10/13/2024 6:43 AM [facility] LDL Calculated 64 0 - 100 mg/dL LAB CHEMISTRY METHOD 10/13/2024 6:43 AM EST [facility] VLDL Cholesterol Luke 13.2 mg/dL LAB CHEMISTRY METHOD 10/13/2024 6:43 AM [facility] Non HDL Chol. (LDL+VLDL) 77 <145 mg/dL LAB CHEMISTRY METHOD 10/13/2024 6:43 AM [facility] Chol/HDL Ratio 2.6 0.0 - 4.4 LAB CHEMISTRY METHOD 10/13/2024 6:43 AM [facility] Blood Venous blood specimen / Unknown Venipuncture / Unknown 10/13/2024 5:24 AM EST 10/13/2024 6:07 AM EST Salena RODRIGUEZ LAB BLOOD ORDERABLES Fi nal Result [facility] [address] [place] [address], from Last 3 Months or Most Recently Relevant to Health Maintenance Insurance MEDICAID - [place] Advance Directives Documents on File Type Date Recorded Patient Skate Maker Expl anation Health Care Decision (hx) [...] currently active code status orders. Care Teams Agricultural Equipment Mechanic Relationship Specialty Start Date End Date Yash Arredondo NP [address] [place] [address] PCP - General 09/15/13
--- OUTSIDE RECORDS SUMMARY | 2025-07-08 12:15 | XMS_ITS | Encounter Summary ---
Author Organization [employer] Address [address] [facility] 7t [place] [address] Care Team Providers Care Automatic Coil Machine Operator Name Role Phone [facility] Primary Care Provider [phone] Andree Ulloa PharmD Unavailable [phone] Maude Dennis RN Unavailable [phone] Jacquie Sarkar Unavailable Jacquie Sarkar Unavailable Reason for Visit * Reason Comments Med Refill Encounter Details Date Type Department Care Team (Late st Contact Info) Description 10/03/2023 Refill [facility] MED & PEDS [address] [place], [place] [phone] [facility] 230 [place] [address] Tardive dyskinesia Social History Tobacco Use Types [...] the past 12 months, has t he [employer], [employer], oil or water [employer] threatened to shut off services in your [...] Description 07/16/2025 2:00 PM EDT Office Visit [facility] MEDICINE [address] [place] [address] [place], [place], [facility] 230 [place] [address] 08/04/2025 3:30 PM EDT Office Visit [facility] OPTOMETRY [address] [place] [address] Elisabeth Melchor, OD [address] [place] [address] documented as of this encounter Goals Goal [...] documented as of this encounter Care Teams Automatic Coil Machine Operator Relationship Specialty Start Date End Date [place] RUBBER TUBING SPLICER [address] [place] [address] PCP - General Family Medicine 04/05/22 Andree Ulloa PharmD [address] [place] [address] Pharmacist Internal Medicine 05/09/23 Maude Dennis RN [address] [place] [address] Book RepairerGrease Machine Worker 08/27/24 12/22/24 Jacquie Sarkar 05/20/25 06/03/25 Jacquie Sarkar 06/10/25 06/15/25 Flavia Segundo Computer ArchitectGrease Machine Worker 10/10/23 [employer] 08/14/24 02/11/25 Gabrielle Fitch Computer ArchitectGrease Machine Worker 11/05/24 [employer] 02/06/25 documented as of this encounter
--- OUTSIDE RECORDS SUMMARY | 2025-07-08 12:15 | XMS_ITS | Encounter Summary ---
Author Organization [employer] Address [address] [facility] 7t [place] [address] Care Team Providers Care Power Mule Operator Name Role Phone Ana Davis SOFTWARE EDUCATOR Primary Care Provider [phone] Andree Ulloa PharmD Unavailable [phone] Jacquie Sarkar Unavailable Jacquie Sarkar Unavailable Reason for Referral * Consultation (Routine) - Authorized Specialty Diagnoses / Procedures Referred By Ivelisse segura Referred To Contact Pharmacy Diagnoses Type 2 diabetes mellitus without complication, with long-term current use of insulin (CMS/HCC) Catalina Mendez MD [address] [place] [address] Phone: tel: fax: Referral ID Status Reason Start Date Expiration Date Visits Requested Visits Authorized [id number] Authorized Consult and Treat 02/23/2025 02/23/2026 6 6 Encounter Details Date Type Department Care Team (Late st Contact Info) Description 02/23/2025 Orders Only [facility] [address] [place], [place] [phone] Catalina Mendez MD [address] [place], [place] [phone] Type 2 diabetes mellitus without complication, with [...] Description 07/16/2025 2:00 PM EDT Office Visit [facility] [address] [place] [address] [facility], [facility] [address] [place] [address] 08/04/2025 3:30 PM EDT Office Visit [facility] OPTOMETRY [address] [place] [address] Elisabeth Melchor, OD [address] [place] [address] Scheduled Referrals Name Type Priority Associated Diagnoses Orde r Schedule Referral to Pharmacy CDTM Outpatient Referral Routine Type 2 diabetes mellitus without complication, with long-term current use of insulin (CMS/[facility], [facility]) Ordered: 02/23/2025 documented as of this encounter [...] complication, with long-term current use of insulin (CMS/LTAC, [facility])- Primary documented in this encounter Additional Health Concerns Assessment Noted Time PHQ-9 Depression Total Score: 10 025 1:44 PM EST documented as of this encounter Care Teams Power Mule Operator Relationship Specialty Start Date End Date [facility] [address] [place] [address] PCP - General Family Medicine 04/05/22 Andree Ulloa PharmD [address] [place], [place] [phone] Pharmacist Internal Medicine 05/09/23 Jacquie Sarkar 05/20/25 06/03/25 Jacquie Sarkar 06/10/25 06/15/25 lFavia Segundo Account Services AssociateRuby On Rails Engineer 10/10/23 Gabrielle Fitch Account Services AssociateRuby On Rails Engineer 11/05/24 [employer] 02/06/25 documented as of this encounter
--- OUTSIDE RECORDS SUMMARY | 2025-07-08 12:16 | XMS_ITS | Encounter Summary ---
Author Organization [employer] Address [address] [facility] 7t [place] [address] Care Team Providers Care Deposit Refund Clerk Name Role Phone [facility] Primary Care Provider [phone] Andree Ulloa PharmD Unavailable [phone] Maude Dennis RN Unavailable [phone] Jacquie Sarkar Unavailable Jacquie Sarkar Unavailable Reason for Visit * Reason Onset Date Comments Med Refill 08/05/2024 Encounter Details Date Type Department Care Team (Late st Contact Info) Description 08/05/2024 Telephone [facility] MEDICINE 230 [place], [place] [phone] [facility] 230 [place] [address] Med Refill Social History Tobacco Use Types [...] the past 12 months, has t he [employer], gas, oil or water [employer] threatened to shut off services in your [...] from pt requesting a HDF appt. Hospital: [facility] Date of admission: 06/23/24 Discharge date: 08/13/24 Diagnosed: Multiple fractures of the ribs documented in this encounter Plan of Treatment Upcoming Encounters Date Type Department Care Team (Late st Contact Info) Description 07/16/2025 2:00 PM EDT Office Visit [facility] MEDICINE [address] [place] [address] [place], Ana, [employer] [address] [place] [address] 08/04/2025 3:30 PM EDT Office Visit [facility] OPTOMETRY [address] [place] [address] Elisabeth Melchor, OD [address] [place] [address] documented as of this encounter Goals Goal [...] documented as of this encounter Care Teams Deposit Refund Clerk Relationship Specialty Start Date End Date Ana Davis FNP 230 [place] [address] PCP - General Family Medicine 04/05/22 Andree Ulloa PharmD [address] [place] [address] Pharmacist Internal Medicine 05/09/23 Maude Dennis RN [address] [place] [address] Pediatric PathologistTie Loader 08/27/24 12/22/24 Jacquie Sarkar 05/20/25 06/03/25 Jacquie Sarkar 06/10/25 06/15/25 Flavia Segundo Coating EngineerTie Loader 10/10/23 [employer] 08/14/24 02/11/25 Gabrielle Fitch Coating EngineerTie Loader 11/05/24 [employer] 02/06/25 documented as of this encounter
--- OUTSIDE RECORDS SUMMARY | 2025-07-08 12:16 | XMS_ITS | Encounter Summary ---
Author Organization [employer] Address [address] [facility] 7t [place] [address] Care Team Providers Care Therapeutic Assistant Name Role Phone Ana Davis ORGAN TUNER Primary Care Provider [phone] Andree Ulloa PharmD Unavailable [phone] Jacquie Sarkar Unavailable Jacquie Sarkar Unavailable Encounter Details Date Type Department Care Team (Late st Contact Info) Description 05/14/2025 Results Follow-Up [facility] MEDICINE 230 [place], [place] [phone] Maye Ortiz NP [address] [place] [address] Glucose, Whole Blood, CBC auto differential, Prothrombin [...] Description 07/16/2025 2:00 PM EDT Office Visit [facility] MEDICINE 230 [place] [address] [facility] 230 [place] [address] 08/04/2025 3:30 PM EDT Office Visit [facility] OPTOMETRY [address] [place] [address] Elisabeth Melchor, OD [address] [place] [address] documented as of this encounter Goals Goal [...] documented as of this encounter Care Teams Therapeutic Assistant Relationship Specialty Start Date End Date Ana Davis FNP 230 [place] [address] PCP - General Family Medicine 04/05/22 Andree Ulloa PharmD 230 [place] [address] Pharmacist Internal Medicine 05/09/23 Jacquie Sarkar 05/20/25 06/03/25 Jacquie Sarkar 06/10/25 06/15/25 Flavia Segundo Chicken VaccinatorJumpbasting Canvas Baster 10/10/23 Gabrielle Fitch Chicken VaccinatorJumpbasting Canvas Baster 11/05/24 [employer] 02/06/25 documented as of this encounter
--- OUTSIDE RECORDS SUMMARY | 2025-07-08 12:16 | XMS_ITS ---
Author Organization [facility] Care Team Providers Care Filtering Machine Tender Helper Name Role Phone Bill Mustafa Unavailable Unavailable John Robin Unavailable Unavailable Salena Machado Unavailable Unavailable Hailey Garcias Unavailable Unavailable Allergies and adverse reactions Code CodeSystem Substance Reaction Severity StartDate Concern Status 7984 RXNORM Penicillin Unknown 03/31/2024 active Care Team Name Role Address Phone Organization Dates Hailey Garcias PCP [address] [facility] [address], [place], [address], [place] (Office): : [facility] 03/31/2024 - 04/22/2024 Bill Mustafa [address] [place] [address], [phone], [place] (Office): [facility] 03/31/2024 - 04/22/2024 John Robin [address] [facility] [address], [address], [place] (Office): : : [facility] 03/31/2024 - 04/22/2024 Salena Machado [address] [facility] [address], [place], [address], [place] (Office): : [facility] 03/31/2024 - 04/22/2024 Immunizations Immunization Status Vaccine Details Vaccine Code CodeSystem Date Notes TB 1 Step Mantoux (PPD) completed tuberculin skin test; unspecified formulation lotNumber: [id number] expiry: 02/17/2027 Mfg: tubelsol Given 0.1 ml Left Forearm intradermally 98 CVX created date: 04/01/2024 consent date: 04/01/2024 administer ed date: 04/01/2024 Resident had a negative PPD reading. There was no induration, swelling or redness at the site. Will continue to monitor resident. TB 2 Step Mantoux Skin Test completed tuberculin skin test; unspecified formulation lotNumber: [id number] expiry: 01/19/2027 Mfg: Sanofi Pasdteur Given 0.1 ml Right Forearm intradermally Step 1 of Multi-step 98 CVX created date: 04/07/2024 consent date: 04/07/2024 administer ed date: 04/07/2024 Mental Status Section Date Assessment Total Score Description 04/21/2024 BIMS 14 cognitively int act CAM 0 No delirium ind icated PHQ-9 00 04/03/2024 BIMS 11 moderate cognit maria antonia impairment CAM 0 No delirium ind icated PHQ-9 00 Problems Problem # Description Date of onset Resolved Date Code CodeSystem Concern Status 1 ANEMIA, UNSPECIFIED 03/31/[address] active 2 ESOPHAGEAL VARICES WITHOUT BLEEDING 03/31/[address] active 3 CUSTODIAL (CURRENT) USE OF INSULIN 03/31/[address] active 4 NONALCOHOLIC STEATOHEPATITIS (QURESHI) 03/31/[address] active 5 OBESITY, UNSPECIFIED 03/31/[address] active 6 OTHER ASCITES 03/31/[address] act maria antonia 7 OTHER CIRRHOSIS OF LIVER 03/31/2024199381158604 SNOMED CT active 8 PARKINSONISM, UNSPECIFIED 03/31/[address] active 9 PLEURAL EFFUSION, NOT ELSEWHERE CLASSIFIED 03/31/[address] active 10 SEPSIS DUE TO STREPTOCOCCUS, GROUP B 03/31/[address] active 11 SPONTANEOUS BACTERIAL PERITONITIS 03/31/[address] active 12 [address]ROMBOCYTOPENIA, UNSPECIFIED 03/31/[address] active 13 TYPE 2 DIABETES MELLITUS WITHOUT COMPLICATIONS 03/31/[address] active 14 UNSTEADINESS ON FEET 03/31/[address] active 15 WEAKNESS 03/31/[address] active Reason for Referral No Reasons for Referral Entered Social History Social History Observation Description Start Date End Date Code Code System Current Smoking Status Tobacco smoking consumption unknown 551485594 SNOMED CT Sex Assigned At Female 1960 34370-6 [facility] Gender Identity Sexual Orientation Vital Signs Code Code System Vitals Name Values and Units Timing Information 2339-0 [facility] Blood Sugar Dgbwl=498.0 Units=mg/dL 04/21/2024 9279-1 [facility] Respiratory Rate Value=18.0 Units=/m in 04/20/2024 8462-4 [facility] Blood Pressure-Diastolic Value=67 Un its=mmHg 04/20/2024 8480-6 [facility] Blood Pressure-Systolic Wlhkv=304 Un its=mmHg 04/20/2024 8310-5 [facility] Body Temperature Value=98.1 Units= F 04/20/2024 8867-4 [facility] Heart rate Value=69.0 Units=/min 10/2023 16556-4 [facility] O2 % dC Oximetry Value=96.0 Units= % 04/20/2024 64940-3 [facility] Pain Level Value=0.0 04/19/2024 47571-2 [facility] Weight Bphwp=503.3 Units=Lbs 8302-2 [facility] Height Value=61.0 Units=Inches 04/01/2024
--- OUTSIDE RECORDS SUMMARY | 2025-07-08 12:16 | XMS_ITS | Encounter Summary ---
Author Organization [employer] Address [address] [facility] 7t [place] [address] Care Team Providers Care Belt Conveyor Drier Name Role Phone Aan Davis CENTERLESS GRINDER SET UP OPERATOR Primary Care Provider [phone] Andree Ulloa PharmD Unavailable [phone] Jacquie Sarkar Unavailable Jacquie Sarkar Unavailable Encounter Details Date Type Department Care Team (Late st Contact Info) Description 05/14/2025 Orders Only [facility] MEDICINE 230 [place], [place] [phone] Maye Ortiz NP 230 [place], [place] [phone] Social History Tobacco Use Types Packs/Day Years [...] Description 07/16/2025 2:00 PM EDT Office Visit [facility] MEDICINE 230 [place] [address] [place], [place], [facility] 230 [place] [address] 08/04/2025 3:30 PM EDT Office Visit [facility] OPTOMETRY [address] [place] [address] Elisabeth Melchor, OD 267 [place] [address] documented as of this encounter Goals Goal [...] documented as of this encounter Care Teams Belt Conveyor Drier Relationship Specialty Start Date End Date JeffersonAna FNP [address] [place] [address] PCP - General Family Medicine 04/05/22 Andree Ulloa PharmD [address] [place] [address] Pharmacist Internal Medicine 05/09/23 Jacquie Sarkar 05/20/25 06/03/25 Jacquie Sarkar 06/10/25 06/15/25 Flavia Segundo Tip Banding Machine OperatorCell Attendant Helper 10/10/23 Gabrielle Fitch Tip Banding Machine OperatorCell Attendant Helper 11/05/24 [employer] 02/06/25 documented as of this encounter
--- OUTSIDE RECORDS SUMMARY | 2025-07-08 12:16 | XMS_ITS | Encounter Summary ---
Author Organization [employer] Address [address] [facility] 7t [place] [address] Care Team Providers Care Cap And Hat Production Supervisor Name Role Phone [facility] Primary Care Provider [phone] Andree Ulloa PharmD Unavailable [phone] Maude Dnenis RN Unavailable [phone] Jacquie Sarkar Unavailable Jacquie Sarkar Unavailable Reason for Visit * Reason Onset Date Comments requesting a call back 02/05/2023 Encounter Details Date Type Department Care Team ([facility] st Contact Info) Description 02/05/2023 Telephone [facility] MEDICINE 230 [place], [place] [phone] [facility] 230 [place] [address] requesting a call back Social History Tobacco [...] . States needs to return them to [facility] . documented in this encounter Plan of Treatment Upcoming Encounters Date Type Department Care Team (Late st Contact Info) Description 07/16/2025 2:00 PM EDT Office Visit [facility] MEDICINE [address] [place] [address] [place] [facility] 230 [place] [address] 08/04/2025 3:30 PM EDT Office Visit [facility] OPTOMETRY [address] [place] [address] Tarka, Elisabeth, OD 267 [place] [address] documented as of this encounter Visit Diagnoses Not on filedocumented in this encounter Additional Health Concerns Assessment Noted Time PHQ-9 Depression Total Score: 0 12/03/19 23 10:53 AM EST documented as of this encounter Care Teams Cap And Hat Production Supervisor Relationship Specialty Start Date End Date SusanAna levy [facility] 230 [place] [address] PCP - General Family Medicine 04/05/22 Andree Ulloa PharmD 230 [place] [address] Pharmacist Internal Medicine 05/09/23 Maude Dennis, MARQUITA [address] [place] [address] Carpenters HelperGenerating Station Mechanic 08/27/24 12/22/24 Jacquie Sarkar 05/20/25 06/03/25 Jacquie Sarkar 06/10/25 06/15/25 Flavia Segundo Scene PainterGenerating Station Mechanic 10/10/23 [employer] 08/14/24 02/11/25 Gabrielle Fitch Scene PainterGenerating Station Mechanic 11/05/24 [employer] 02/06/25 documented as of this encounter
--- OUTSIDE RECORDS SUMMARY | 2025-07-08 12:16 | XMS_ITS | Encounter Summary ---
Author Organization [employer] Address 75 [facility] 7t [place] [address] Care Team Providers Care Speech Language Pathologist Name Role Phone [facility] Primary Care Provider [phone] Andree Ulloa PharmD Unavailable [phone] Jacquie Sarkar Unavailable Jacquie Sarkar Unavailable Reason for Visit * Reason Onset Date Comments Med Refill 02/09/2025 Encounter Details Date Type Department Care Team (Late st Contact Info) Description 02/09/2025 Telephone [facility] MEDICINE 230 [place], [place] [phone] [facility] 230 [place] [address] Med Refill Social History Tobacco Use Types [...] for this patient to enroll care in [facility] - Diabetes clinic. Please send at your earliest convenience. * Telephone Encounter - Reinaldo Darling - 02/09/2025 9:50 AM EDT TC from pt requesting medication refill. Medications needing refill : insulin degludec (Tresiba FlexTouch) 200 UNIT/ML injection Blood Glucose Monitoring Suppl (D-Care Glucometer) w/Device kit To be sent to: [facility]- - [place], [place] - [address] [facility] documented in this encounter Plan of Treatment Upcoming Encounters Date Type Department Care Team ([facility] st Contact Info) Description 07/16/2025 2:00 PM EDT Office Visit [facility] MEDICINE [address] [place] [address] [facility] 230 [place] [address] 08/04/2025 3:30 PM EDT Office Visit [facility] OPTOMETRY [address] [place] [address] Elisabeth Melchor, OD 267 [place] [address] documented as of this encounter Goals Goal [...] documented as of this encounter Care Teams Speech Language Pathologist Relationship Specialty Start Date End Date [facility] 230 [place] [address] PCP - General Family Medicine 04/05/22 Andree Ulloa, PharmD 230 [place] [address] Pharmacist Internal Medicine 05/09/23 Jacquie Sarkar 05/20/25 06/03/25 Jacquie Sarkar 06/10/25 06/15/25 Flavia Segundo Slater ApprenticeAluminum Fabrication Supervisor 10/10/23 [employer] 08/14/24 02/11/25 Gabrielle Fitch Slater ApprenticeAluminum Fabrication Supervisor 11/05/24 [employer] 02/06/25 documented as of this encounter
--- OUTSIDE RECORDS SUMMARY | 2025-07-08 12:16 | XMS_ITS | Encounter Summary ---
Author Organization [employer] Address 75 [facility] 7t [place] [address] Care Team Providers Care Asp Net Programmer Name Role Phone [facility] Primary Care Provider [phone] Andree Ulloa PharmD Unavailable [phone] Maude Dennis RN Unavailable [phone] Jacquie Sarkar Unavailable Jacquie Sarkar Unavailable Reason for Visit * Reason Comments Med Refill Encounter Details Date Type Department Care Team (Late st Contact Info) Description 10/01/2023 Refill [facility] MED [facility]EDS [address] [place], [place] [phone] [facility] 230 [place] [address] Tardive dyskinesia; Schizophrenia, unspecified type (CMS/HCC) Social [...] the past 12 months, has t he [employer], gas, oil or water company threatened to [...] 07/16/2025 2:00 PM EDT Office Visit [facility] MEDICINE 230 [place] [address] [facility] 230 [place] [address] 08/04/2025 3:30 PM EDT Office Visit [facility] OPTOMETRY [address] [place] [address] Elisabeth Melchor, OD 267 [place] [address] documented as of this encounter Goals Goal [...] documented as of this encounter Care Teams Asp Net Programmer Relationship Specialty Start Date End Date Ana Davis CREDIT PRODUCT ANALYST [address] [place] [address] PCP - General Family Medicine 04/05/22 Andree Ulloa PharmD [address] [place] [address] Pharmacist Internal Medicine 05/09/23 Maude Dennis, RN 505 [place] [address] Lead ShipperMold Making Plastics Sheets Supervisor 08/27/24 12/22/24 Jacquie Sarkar 05/20/25 06/03/25 Jacquie Sarkar 06/10/25 06/15/25 Flavia Segundo Payroll ClerkMold Making Plastics Sheets Supervisor 10/10/23 [email or web address] 08/14/24 02/11/25 Gabrielle Fitch Payroll ClerkMold Making Plastics Sheets Supervisor 11/05/24 [email or web address] 02/06/25 documented as of this encounter
--- OUTSIDE RECORDS SUMMARY | 2025-07-08 12:16 | XMS_ITS | Encounter Summary ---
Author Organization [employer] Address 75 [facility] 7t [place] [address] Care Team Providers Care Caustic Strength Inspector Name Role Phone [facility] Primary Care Provider [phone] Andree Ulloa PharmD Unavailable [phone] Maude Dennis RN Unavailable [phone] Jacquie Sarkar Unavailable Jacquie Sarkar Unavailable Encounter Details Date Type Department Care Team (Late Contact Info) Description 01/21/2023 Telephone [facility] MEDICINE 230 [place], [place] [phone] Kimberly Donaldson LPN Social History Tobacco Use [...] Description 07/16/2025 2:00 PM EDT Office Visit [facility] MEDICINE 230 [place], [place] [phone] [place] Ana [address] [place] [address] 08/04/2025 3:30 PM EDT Office Visit [facility] 267 [place] [address] Elisabeth Melchor, OD 267 [place] [address] documented as of this encounter Visit Diagnoses Not on filedocumented in this encounter Additional Health Concerns Assessment Noted Time PHQ-9 Depression Total Score: 0 12/03/19 10:53 AM EST documented as of this encounter Care Teams Caustic Strength Inspector Relationship Specialty Start Date End Date Susan KAROLINA Perez 230 [place] [address] PCP - General Family Medicine 04/05/22 Andree Ulloa PharmD [address] [place] [address] Pharmacist Internal Medicine 05/09/23 Maude Dennis, MARQUITA [address] [place] [address] Grinder Set Up Operator [employer] Linings Coater 08/27/24 12/22/24 Jacquie Sarkar 05/20/25 06/03/25 Jacquie Sarkar 06/10/25 06/15/25 Flavia Segundo Hotel Or Motel Room Service SupervisorBrake Linings Coater 10/10/23 [employer] 08/14/24 02/11/25 Gabrielle Fitch Hotel Or Motel Room Service SupervisorBrake Linings Coater 11/05/24 [employer] 02/06/25 documented as of this encounter
[2025-07-08 12:17] LABS: Alanine Aminotransferase 24 U/L (0-31); Albumin Level 3.0 g/dL (3.5-5.0); Alkaline Phosphatase 151 U/L (39-117); Anion Gap 8 (12-20); Aspartate Amino Transferase 41 U/L (5-31); B Type Natriuretic Peptide 51 pg/mL (<100); Blood Urea Nitrogen 31 mg/dL (9-16); Calcium 8.6 mg/dL (8.4-10.2); Carbon Dioxide 23 mmol/L (22-29); Chloride 110 mmol/L (96-108); Estimated Glomerular Filt Rate 57; Potassium 4.5 mmol/L (3.3-5.1); Sodium 136 mmol/L (135-145); Total Protein 6.8 g/dL (6.5-8.0)
== END 2025-07-08 10:17 | disposition home or self-care (01) ==
LOC: HO.LAB 10:16
PROVIDERS: Absent Provider Internal Medicine; PCP Registered Nurse; Visit Provider Registered Nurse
DX: R18.8 Other ascites (principal); K74.60 Unspecified cirrhosis of liver; R01.1 Cardiac murmur, unspecified
CPT/HCPCS: 36415; 80053; 83880; 85027; 85610

== ENCOUNTER → 2025-07-16 12:53 | Day surgery (SDC) | payer MEDICAID, SELFPAY ==
--- OUTSIDE RECORDS SUMMARY | 2025-07-13 12:10 | XMS_ITS | Clinical Summary ---
Author Organization [facility] Address [address] [place] [address] Care Team Providers Care Otologist Name Role Phone Unavailable Primary Care Provider [...] EDT Behavioral Health Visit [facility] [address] [place] [address] Dorota Glover APRN [address] [place] [address] Health Maintenance Due Date Last Done Comments [...] Drug Screen 10/21/2024 Depression Annual Screen 10/21/2024 Pez-[id number]-07 ( season) 2025 Imm-Influenza (#1) 2025 08/31/2024, [...] Discontinued Vaginal Pap Discontinued Vulvoscopy Discontinued Insurance [facility]
--- OUTSIDE RECORDS SUMMARY | 2025-07-13 12:10 | XMS_ITS | Encounter Summary ---
Author Organization [employer] Address 75 [facility] 7t [place] [address] Care Team Providers Care Performance Test Architect Name Role Phone [facility] Primary Care Provider [phone] Andree Ulloa PharmD Unavailable [phone] Jacquie Sarkar Unavailable Jacquie Sarkar Unavailable Reason for Visit * Reason Onset Date Comments Med Refill 02/09/2025 Encounter Details Date Type Department Care Team (Late st Contact Info) Description 02/09/2025 Telephone [facility] MEDICINE 230 [place], [place] [phone] [facility] 230 [place] [address] Med Refill Social History Tobacco Use Types [...] for this patient to enroll care in [facility] - Diabetes clinic. Please send at your earliest convenience. * Telephone Encounter - Reinaldo Darling - 02/09/2025 9:50 AM EDT TC from pt requesting medication refill. Medications needing refill : insulin degludec (Tresiba FlexTouch) 200 UNIT/ML injection Blood Glucose Monitoring Suppl (D-Care Glucometer) w/Device kit To be sent to: [facility]- - [place], [place] - [address] [facility] documented in this encounter Plan of Treatment Upcoming Encounters Date Type Department Care Team ([facility] st Contact Info) Description 07/16/2025 2:00 PM EDT Office Visit [facility] MEDICINE [address] [place] [address] [place] [facility] 230 [place] [address] 08/04/2025 3:30 PM EDT Office Visit [facility] OPTOMETRY [address] [place] [address] Elisabeth Melchor, OD 267 [place] [address] documented as of this encounter Goals Goal [...] documented as of this encounter Care Teams Performance Test Architect Relationship Specialty Start Date End Date [facility] 230 [place] [address] PCP - General Family Medicine 04/05/22 Andree Ulloa, PharmD 230 [place] [address] Pharmacist Internal Medicine 05/09/23 Jacquie Sarkar 05/20/25 06/03/25 Jacquie Sarkar 06/10/25 06/15/25 Flavia Segundo Poultry EvisceratorCustomer Care Agent 10/10/23 [employer] 08/14/24 02/11/25 Gabrielle Fitch Poultry EvisceratorCustomer Care Agent 11/05/24 [employer] 02/06/25 documented as of this encounter
--- OUTSIDE RECORDS SUMMARY | 2025-07-13 12:10 | XMS_ITS | Encounter Summary ---
Author Organization [employer] Address 75 [facility] 7t [place] [address] Care Team Providers Care Legal Services Professional Name Role Phone [facility] Primary Care Provider [phone] Andree lUloa PharmD Unavailable [phone] Maude Dennis RN Unavailable [phone] Jacquie Sarkar Unavailable Jacquie Sarkar Unavailable Reason for Visit * Reason Onset Date Comments Med Refill 08/05/2024 Encounter Details Date Type Department Care Team (Late st Contact Info) Description 08/05/2024 Telephone [facility] MEDICINE 230 [place], [place] [phone] [facility] 230 [place] [address] Med Refill Social History Tobacco Use Types [...] the past 12 months, has t he [employer], gas, oil or water [employer] threatened to shut off services in your [...] from pt requesting a HDF appt. Hospital: [facility] Date of admission: 06/23/24 Discharge date: 08/13/24 Diagnosed: Multiple fractures of the ribs documented in this encounter Plan of Treatment Upcoming Encounters Date Type Department Care Team (Late st Contact Info) Description 07/16/2025 2:00 PM EDT Office Visit [facility] MEDICINE 230 [place] [address] [place], [place], POWER CHECKER 230 [place] [address] 08/04/2025 3:30 PM EDT Office Visit [facility] OPTOMETRY [address] [place] [address] Elisabeth Melchor, OD 267 [place] [address] documented as of this encounter Goals Goal [...] as of this encounter Care Teams Legal Services Professional Relationship Specialty Start Date End Date Ana Davis FNP 230 [place] [address] PCP - General Family Medicine 04/05/22 Andree Ulloa PharmD 230 [place] [address] Pharmacist Internal Medicine 05/09/23 Maude Dennis RN [address] [place] [address] Animal EcologistWind Turbine Service Technician 08/27/24 12/22/24 Jacquie Sarkar 05/20/25 06/03/25 Jacquie Sarkar 06/10/25 06/15/25 Flavia Segundo Braille CoderWind Turbine Service Technician 10/10/23 [employer] 08/14/24 02/11/25 Gabrielle Fitch Braille CoderWind Turbine Service Technician 11/05/24 [employer] 02/06/25 documented as of this encounter
--- OUTSIDE RECORDS SUMMARY | 2025-07-13 12:10 | XMS_ITS | Encounter Summary ---
Author Organization [employer] Address 75 [facility] 7t [place] [address] Care Team Providers Care Bailiff Name Role Phone Ana Davis NAVAL AIRCREWMAN OPERATOR Primary Care Provider [phone] Andree Ulloa PharmD Unavailable [phone] Jacquie Sarkar Unavailable Jacquie Sarkar Unavailable Encounter Details Date Type Department Care Team (Late st Contact Info) Description 05/14/2025 Results Follow-Up [facility] MEDICINE 230 [place], [place] [phone] Maye Ortiz NP 230 [place] [address] Glucose, Whole Blood, CBC auto differential, Prothrombin [...] Description 07/16/2025 2:00 PM EDT Office Visit [facility] MEDICINE 230 [place] [address] [facility] 230 [place] [address] 08/04/2025 3:30 PM EDT Office Visit [facility] OPTOMETRY 267 [place] [address] Elisabeth Melchor, OD 267 [place] [address] documented as of this encounter Goals Goal [...] documented as of this encounter Care Teams Bailiff Relationship Specialty Start Date End Date Ana Davis FNP 230 [place] [address] PCP - General Family Medicine 04/05/22 Andree Ulloa PharmD 230 [place] [address] Pharmacist Internal Medicine 05/09/23 Jacquie Sarkar 05/20/25 06/03/25 Jacquie Sarkar 06/10/25 06/15/25 Flavia Segundo Personal Computer Network EngineerCommunity Youth Secretary 10/10/23 Gabrielle Fitch Personal Computer Network EngineerCommunity Youth Secretary 11/05/24 [employer] 02/06/25 documented as of this encounter
--- OUTSIDE RECORDS SUMMARY | 2025-07-13 12:10 | XMS_ITS | Encounter Summary ---
Author Organization [employer] Address 75 [facility] 7t [place] [address] Care Team Providers Care Titrator Name Role Phone [facility] Primary Care Provider [phone] Andree Ulloa PharmD Unavailable [phone] Maude Dennis RN Unavailable [phone] Jacquie Sarkar Unavailable Jacquie Sarkar Unavailable Reason for Visit * Reason Comments Med Refill Encounter Details Date Type Department Care Team (Late st Contact Info) Description 10/03/2023 Refill [facility] CHC MED & PEDS [address] [place], [place] [phone] [facility] 230 [place] [address] Tardive dyskinesia Social History Tobacco Use Types [...] the past 12 months, has t he [employer], [employer], oil or water [employer] threatened to shut off services in your [...] Description 07/16/2025 2:00 PM EDT Office Visit [facility] MEDICINE 230 [place] [address] [place], [place], [facility] 230 [place] [address] 08/04/2025 3:30 PM EDT Office Visit [facility] OPTOMETRY 267 [place] [address] Elisabeth Melchor, OD 267 [place] [address] documented as of this encounter Goals Goal [...] documented as of this encounter Care Teams Titrator Relationship Specialty Start Date End Date [place] Ana TURF MANAGER 230 [place] [address] PCP - General Family Medicine 04/05/22 Andree Ulloa PharmD 230 [place] [address] Pharmacist Internal Medicine 05/09/23 Maude Dennis RN [address] [place] [address] PolysomnographerScientific Informatics Project Leader 08/27/24 12/22/24 Jacquie Sarkar 05/20/25 06/03/25 Jacquie Sarkar 06/10/25 06/15/25 Flavia Segundo Cocoa Butter Filter OperatorScientific Informatics Project Leader 10/10/23 [employer] 08/14/24 02/11/25 Gabrielle Fitch Cocoa Butter Filter OperatorScientific Informatics Project Leader 11/05/24 [employer] 02/06/25 documented as of this encounter
--- OUTSIDE RECORDS SUMMARY | 2025-07-13 12:10 | XMS_ITS | Encounter Summary ---
Author Organization [employer] Address 75 [facility] 7t [place] [address] Care Team Providers Care Ice Hockey Coach Name Role Phone [facility] Primary Care Provider [phone] Andree Ulloa PharmD Unavailable [phone] Maude Dennis RN Unavailable [phone] Jacquie Sarkar Unavailable Jacquie Sarkar Unavailable Reason for Visit * Reason Comments Med Refill Encounter Details Date Type Department Care Team (Late st Contact Info) Description 10/01/2023 Refill [facility] CH[facility] MED & PEDS 505 [place], [place] [phone] [facility] 230 [place] [address] Tardive dyskinesia; Schizophrenia, unspecified type (CMS/HCC) Social [...] the past 12 months, has t he [employer], gas, oil or water company threatened to [...] Description 07/16/2025 2:00 PM EDT Office Visit [facility] MEDICINE 230 [place] [address] [facility] 230 [place] [address] 08/04/2025 3:30 PM EDT Office Visit [facility] OPTOMETRY 267 [place] [address] Elisabeth Melchor, OD 267 [place] [address] documented as of this encounter Goals Goal [...] documented as of this encounter Care Teams Ice Hockey Coach Relationship Specialty Start Date End Date Ana Davis ADJUNCT ENGLISH INSTRUCTOR 230 [place] [address] PCP - General Family Medicine 04/05/22 nAdree Ulloa PharmD 230 [place] [address] Pharmacist Internal Medicine 05/09/23 Maude Dennis, RN 505 [place] [address] Supervisor Channel ProcessMeal Room Hand 08/27/24 12/22/24 Jacquie Sarkar 05/20/25 06/03/25 Jacquie Sarkar 06/10/25 06/15/25 Flavia Segundo Front End Software DeveloperMeal Room Hand 10/10/23 [employer] 08/14/24 02/11/25 Gabrielle Fitch Front End Software DeveloperMeal Room Hand 11/05/24 [employer] 02/06/25 documented as of this encounter
--- OUTSIDE RECORDS SUMMARY | 2025-07-13 12:10 | XMS_ITS | Clinical Summary ---
Author Organization [facility] Address [address] [facility] [address] [place] [address] Phone Care Team Providers Care Regulator Inspector Name Role Phone Unavailable Primary Care Provider [...] morning. 3 Active Insulin Pen Needle (Pen Providence 01/03 ) 31G X 5 MM misc [...] Active Problems Problem Noted Date Diagnosed Date Portal hypertension 10/12/2024 Anasarca 10/12/2024 Chronic kidney disease, stage 2 (mild) 3 Ligation of fallopian tube 03/14/2023 Hypo-osmolality and hyponatremia 03/10/2023 Patient encounter status 12/03/2022 Tardive dyskinesia 04/21/2018 Thrombocytopenia 04/21/2018 Type 2 diabetes mellitus without complication Immunizations Immunization Administration Dates Next Due Hepatitis B 10/18/2022,11/02/2019,05/16/2015 Influenza (IM) Preservative Free 08/31/2024 Influenza Split 07/29/2013,08/11/2012 Influenza, Quadrivalent, Preservative Free 09/02,10/05/2022,11/02/2019 Influenza, Quadrivalent, With Preservative 09/08,08/06/2016,08/17/2015 Influenza, Unspecified 11/29/2009,09/09/2009 Pneumococcal Conjugate Pcv 20 12/03/2022 Pneumococcal Polysaccharide 07/29/2013, 7 Shingrix 10/18/2022 Td 12/01/1997 Td, Unspecified 12/01/1997 Tdap 12/03/2022,11/27/2012 Family History Relation Status [...] Visit [facility] [address] [place] [phone] Rigo Freed MD [address] [facility] [address] [place] [address] Health Maintenance Due Date Last Done Comments Breast Cancer Screening 1961 Colorectal Cancer Screening: Annual FOBT 2010 Colorectal Cancer Screening: Colonoscopy 2010 Colorectal Cancer Screening: Sigmoidoscopy 2010 Hepatitis B Vaccine (1 of 3 - Risk 3-dose series) 2021 10/18/2022, 11/02/2019, 05/16/2015 Diabetes: Ophthalmology Exam 01/21/2023 Diabetes: Pedal Pulse Checked 01/21/2023 Diabetes: Sensory Foot Exam 01/21/2023 Diabetes: Visual Foot Exam 01/21/2023 Diabetes: Hemoglobin A1C 05/14/2025 025, 08/31/2024, 06/12/2024, Additional history exists Influenza Vaccine (#1) 2025 4, 09/02/2023, 10/05/2022, Additional history exists Pneumococcal Vaccine: 50+ Years Completed 12/03/2022, 07/29/2013, 02/17/2007 Pneumococcal Vaccine: Peds ( 0 to 5 Years) and At-Risk Patients (6 to 49 Years) Discontinued 12/03/2022, 07/29/2013, 02/17/2007 [place] Medicaid [place]
--- OUTSIDE RECORDS SUMMARY | 2025-07-13 12:10 | XMS_ITS | Encounter Summary ---
Author Organization [employer] Address 75 [facility] 7t [place] [address] Care Team Providers Care Signals Intelligence Superintendent Name Role Phone Ana Davis ATHLETIC TEAM PHYSICIAN Primary Care Provider [phone] Andree Ulloa PharmD Unavailable [phone] Jacquie Sarkar Unavailable Jacquie Sarkar Unavailable Encounter Details Date Type Department Care Team (Late st Contact Info) Description 05/14/2025 Orders Only [facility] MEDICINE [address] [place], [place] [phone] Maye Ortiz NP 230 [place], [place] [phone] Social History Tobacco Use Types Packs/Day Years [...] Description 07/16/2025 2:00 PM EDT Office Visit [facility] MEDICINE [address] [place] [address] [place], [place], [facility] 230 [place] [address] 08/04/2025 3:30 PM EDT Office Visit [facility] OPTOMETRY 267 [place] [address] Elisabeth Melchor, OD 267 [place] [address] documented as of this encounter Goals Goal [...] documented as of this encounter Care Teams Signals Intelligence Superintendent Relationship Specialty Start Date End Date [place] FNP 230 [place] [address] PCP - General Family Medicine 04/05/22 Andree Ulloa PharmD 230 [place] [address] Pharmacist Internal Medicine 05/09/23 Jacquie Sarkar 05/20/25 06/03/25 Jacquie Sarkar 06/10/25 06/15/25 Flavia Segundo Operations Label ClerkFurniture Salesperson 10/10/23 Gabrielle Fitch Operations Label ClerkFurniture Salesperson 11/05/24 [employer] 02/06/25 documented as of this encounter
--- OUTSIDE RECORDS SUMMARY | 2025-07-13 12:10 | XMS_ITS | Encounter Summary ---
Author Organization [employer] Address 75 [facility] 7t [place] [address] Care Team Providers Care Clothing Consultant Name Role Phone [facility] Primary Care Provider [phone] Andree Ulloa PharmD Unavailable [phone] Maude Dennis RN Unavailable [phone] Jacquie Sarkar Unavailable Jacquie Sarkar Unavailable Encounter Details Date Type Department Care Team (Late Contact Info) Description 01/21/2023 Telephone [facility] MEDICINE 230 [place], [place] [phone] Kimberly Donaldson LPN Social History Tobacco Use [...] Description 07/16/2025 2:00 PM EDT Office Visit [facility] MEDICINE 230 [place], [place] [phone] [place] Ana [address] [place] [address] 08/04/2025 3:30 PM EDT Office Visit [facility] [address] [place] [address] Elisabeth Melchor, OD 267 [place] [address] documented as of this encounter Visit Diagnoses Not on filedocumented in this encounter Additional Health Concerns Assessment Noted Time PHQ-9 Depression Total Score: 0 12/03/19 10:53 AM EST documented as of this encounter Care Teams Clothing Consultant Relationship Specialty Start Date End Date Susan KAROLINA Perez 230 [place] [address] PCP - General Family Medicine 04/05/22 Andree Ulloa PharmD [address] [place] [address] Pharmacist Internal Medicine 05/09/23 Maude Dennis, MARQUITA [address] [place] [address] Hospital Television Rental ClerkEmergency Communications Dispatcher 08/27/24 12/22/24 Jacquie Sarkar 05/20/25 06/03/25 Jacquie Sarkar 06/10/25 06/15/25 Flavia Segundo Splunk ArchitectEmergency Communications Dispatcher 10/10/23 [employer] 08/14/24 02/11/25 Gabrielle Fitch Splunk ArchitectEmergency Communications Dispatcher 11/05/24 [employer] 02/06/25 documented as of this encounter
--- OUTSIDE RECORDS SUMMARY | 2025-07-13 12:10 | XMS_ITS | Encounter Summary ---
Author Organization [employer] Address [address] [facility] [address] [place] [address] Care Team Providers Care Wildlife Enforcement Major Name Role Phone Ana Davis BROKE WORKER Primary Care Provider [phone] Andree Ulloa PharmD Unavailable [phone] Encounter Details Date Type Department Care Team ([facility] st Contact Info) Description 07/08/2025 Orders Only [...] Description 07/16/2025 2:00 PM EDT Office Visit [facility] [address] [place] [address] [place], Ana, BROKE WORKER [address] [place] [address] 08/04/2025 3:30 PM EDT Office Visit [facility] [address] [place] [address] TarkaElisabeth, OD [address] [place] [address] documented as of this encounter Goals Goal [...] EDT CBC Routine 07/08/2025 10:57 AM EDT COMPREHENSIVE METABOLIC PANEL Routine 07/08/2025 10:57 AM EDT documented in this encounter Results * (ABNORMAL) Comprehensive Metabolic Panel (07/08/2025 10:57 AM EDT) Sodium 136 135 - 145 mmol/L [facility] Potassium 4.5 3.3 - 5.1 mmol/L [facility] Chloride 110(H) 96 - 108 mmol/L [facility] Carbon Dioxide 23 22 - 29 mmol/L [facility] Anion Gap 8(L) 12 - 20 [facility] Urea Nitrogen (BUN) 31(H) 9 - 16 mg/dL [facility] Creatinine, Serum 0.98 0.5 - 1.4 mg/dL [facility] Estimated Glomerular Filt Rate 57 [facility] Comment:Chronic Kidney Disea se: Estimated GFR < 60 mL/min/1.22x9Uprgxl Kidney Disease: Estimated GFR < 15 mL/min/1.73m2 Glucose 237(H) 60 - 115 mg/dL [facility] Calcium 8.6 8.4 - 10.2 mg/dL [facility] Bilirubin, Total 0.7 0.0 - 1.0 mg/dL [facility] Aspartate Amino Transferase 41(H) 5 - 31 U/L [facility] Alanine Aminotransferase 24 0 - 31 U/L [facility] Total Protein 6.8 6.5 - 8.0 g/dL [facility] Albumin Level 3.0(L) 3.5 - 5.0 g/dL [facility] Alkaline Phosphatase 151(H) 39 - 117 U/L [facility] 07/08/2025 10:5 7 AM EDT 07/08/2025 10:57 AM EDT us Generic External Data Provider LAB BLOOD ORDERAB LES Final Result [facility] [address] [place] [address] [phone] * (ABNORMAL) Prothrombin Time-INR (07/08/2025 10:57 AM EDT) [facility] Prothrombin Time 14.2(H) 10.9 - 12.4 SEC [facility] INTERNATIONAL NORM RATIO 1.2(H) 0.9 - 1.1 [facility] Comment:INTERNATIONAL NORMAL IZED RATIO (INR) [...] 7 AM EDT 07/08/2025 10:57 AM EDT Generic External Data Provider LAB BLOOD ORDERAB LES Final Result [facility] [address] [place] [phone] * (ABNORMAL) CBC (07/08/2025 10:57 AM EDT) [facility] White Blood Count 3.0(L) 4.8 - 10.8 X10*3/uL [facility] Red Blood Count 2.82(L) 4.20 - 5.50 X10*6/uL [facility] Hemoglobin 8.9(L) 12.0 - 16.0 g/dl [facility] Hematocrit 25.9(L) 37.0 - 47.0 % [facility] Mean Corpuscular Volume 91.8 80.0 - 98.0 fL [facility] Mean Corpuscular Hemoglobin 31.6 27.0 - 33.0 pg [facility] Mean Corpuscular HGB Conc 34.4 31.0 - 35.0 g/dl [facility] Red Cell Distribution Width 14.4 11.0 - 16.0 % [facility] Platelet Count 22(L) 160 - 400 X10*3/uL [facility] Mean Platelet Volume 11.9 9.4 - 12.3 fL [facility] NRBC Pct Auto 0.0 0.0 - 0.2 /100WBC [facility] NRBC Abs Auto 0.000 0.0 - 0.012 X10*3/uL [facility] 07/08/2025 10:5 7 AM EDT 07/08/2025 10:57 AM EDT us Generic External Data Provider LAB BLOOD ORDERAB LES Final Result Performing Organization Address City/State/[facility] Co de Phone Number [facility] [address] [place] [address] [phone] documented in this encounter Visit Diagnoses Not on filedocumented in this encounter Additional Health Concerns Assessment Noted Time PHQ-9 Depression Total Score: 10 025 1:44 PM EST documented as of this encounter Care Teams Wildlife Enforcement Major Relationship Specialty Start Date End Date Ana Davis FNP [address] [place] [address] PCP - General Family Medicine 04/05/22 Andree Ulloa PharmD [address] [place] [address] Pharmacist Internal Medicine 05/09/23 Flavia Segundo Enrichment AssistantFoundry Laborer [employer] 10/10/23 Gabrielle Fitch Enrichment AssistantFoundry Laborer [employer] 11/05/24 [employer] 02/06/25 documented as of this encounter
--- OUTSIDE RECORDS SUMMARY | 2025-07-13 12:10 | XMS_ITS ---
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 Name Role Phone Bill Mustafa Unavailable Unavailable John Robin Unavailable Unavailable Salena Machado Unavailable Unavailable Hailey Garcias Unavailable Unavailable Allergies and adverse reactions Code CodeSystem Substance Reaction Severity StartDate Concern Status 7984 RXNORM Penicillin Unknown 03/31/2024 active Care Team Name Role Address Phone Organization Dates Hailey Garcias PCP [address] [facility] [address], [place], [address], [place] (Office): : [facility] 03/31/2024 - 04/22/2024 Bill Mustafa [address] [place] [address], [phone], [place] (Office): [facility] 03/31/2024 - 04/22/2024 John Robin [address] [facility] [address], [address], [place] (Office): : : [facility] 03/31/2024 - 04/22/2024 Salena Machado [address] [facility] [address], [place], [address], [place] (Office): : [facility] 03/31/2024 - 04/22/2024 Immunizations Immunization Status Vaccine Details Vaccine Code CodeSystem Date Notes TB 1 Step Mantoux (PPD) completed tuberculin skin test; unspecified formulation lotNumber: [id number] expiry: 02/17/2027 Mfg: tubelsol Given 0.1 ml Left Forearm intradermally 98 CVX created date: 04/01/2024 consent date: 04/01/2024 administer ed date: 04/01/2024 Resident had a negative PPD reading. There was no induration, swelling or redness at the site. Will continue to monitor resident. TB 2 Step Mantoux Skin Test completed tuberculin skin test; unspecified formulation lotNumber: [id number] expiry: 01/19/2027 Mfg: San[employer]i Pasdteur Given 0.1 [...] CodeSystem Concern Status 1 ANEMIA, UNSPECIFIED 03/31/[address] active 2 ESOPHAGEAL VARICES WITHOUT BLEEDING 03/31/[address] active 3 [facility] (CURRENT) USE OF INSULIN 03/31/[address] active 4 NONALCOHOLIC STEATOHEPATITIS (QURESHI) 03/31/[address] active 5 OBESITY, UNSPECIFIED 03/31/[address] active 6 OTHER ASCITES 03/31/[address] act maria antonia 7 OTHER CIRRHOSIS OF LIVER 03/31/2024199312655276 SNOMED CT active 8 PARKINSONISM, UNSPECIFIED 03/31/[address] active 9 PLEURAL EFFUSION, NOT ELSEWHERE CLASSIFIED 03/31/[address] active 10 SEPSIS DUE TO STREPTOCOCCUS, GROUP B 03/31/[address] active 11 SPONTANEOUS BACTERIAL PERITONITIS 03/31/[address] active [address]BOCYT[address]IA, UNSPECIFIED 03/31/[address] active 13 TYPE 2 DIABETES MELLITUS WITHOUT COMPLICATIONS 03/31/[address] active 14 UNSTEADINESS ON FEET 03/31/[address] active 15 WEAKNESS 03/31/[address] active Reason for Referral No Reasons for Referral Entered Social History Social History Observation Description Start Date End Date Code Code System Current Smoking Status Tobacco smoking consumption unknown 663436406 SNOMED CT Sex Assigned At Female 1960 34953-3 [facility] Gender Identity Sexual Orientation Vital Signs Code Code System Vitals Name Values and Units Timing Information 2339-0 [facility] Blood Sugar Raxtm=662.0 Units=mg/dL 04/21/2024 9279-1 [facility] Respiratory Rate Value=18.0 Units=/m in 04/20/2024 8462-4 [facility] Blood Pressure-Diastolic Value=67 Un its=mmHg 04/20/2024 8480-6 [facility] Blood Pressure-Systolic Glgkj=583 Un its=mmHg 04/20/2024 8310-5 [facility] Body Temperature Value=98.1 Units= F 04/20/2024 8867-4 [facility] Heart rate Value=69.0 Units=/min 10/2023 50925-5 [facility] O2 % dC Oximetry Value=96.0 Units= % 04/20/2024 28399-2 [facility] Pain Level Value=0.0 04/19/2024 29831-4 [facility] Weight Jtosm=897.3 Units=Lbs 8302-2 [facility] Height Value=61.0 Units=Inches 04/01/2024
--- OUTSIDE RECORDS SUMMARY | 2025-07-13 12:10 | XMS_ITS | Encounter Summary ---
Author Organization [employer] Address [address] [facility] [address] [place] [address] Care Team Providers Care Hand Former Name Role Phone [facility] Primary Care Provider [phone] Andree Ulloa PharmD Unavailable [phone] Maude Dennis RN Unavailable [phone] Jacquie Sarkar Unavailable Jacquie Sarkar Unavailable Reason for Visit * Reason Comments Med Refill Encounter Details Date Type Department Care Team (Late st Contact Info) Description 10/03/2023 Refill [facility] [address] [place], [place] [phone] [facility] [address] [place] [address] Schizophrenia, unspecified type (CMS/HCC) Social History Tobacco [...] the past 12 months, has t he [employer], oil or water [employer] threatened to shut off services in your [...] Description 07/16/2025 2:00 PM EDT Office Visit [facility] [address] [place] [address] [place], Ana, [facility] [address] [place] [address] 08/04/2025 3:30 PM EDT Office Visit [facility] [address] [place] [address] Elisabeth Melchor, OD [address] [place] [address] documented as of this encounter Goals Goal [...] documented as of this encounter Care Teams Hand Former Relationship Specialty Start Date End Date Susan KAROLINA Perez [address] [place] [address] PCP - General Family Medicine 04/05/22 Andree Ulloa PharmD [address] [place] [phone] Pharmacist Internal Medicine 05/09/23 Maude Dennis RN [address] [place] [phone] Order PickerNight Patrol Inspector 08/27/24 12/22/24 Jacquie Sarkar 05/20/25 06/03/25 Jacquie Sarkar 06/10/25 06/15/25 Flavia Segundo Ekg TechNight Patrol Inspector 10/10/23 Client24 08/14/24 02/11/25 Gabrielle Fitch Ekg TechNight Patrol Inspector 11/05/24 Client24 02/06/25 documented as of this encounter
--- OUTSIDE RECORDS SUMMARY | 2025-07-13 12:10 | XMS_ITS | Clinical Summary ---
Author Organization [employer] Address [address] [place] [address] Care Team Providers Care Follow Up Clerk Name Role Phone Ana Davis ENGINEER CHIEF Primary Care Provider [phone] Andree Ulloa PharmD Unavailable [phone] Allergies Active Allergy Reactions Criticality Noted [...] complication, with long-term current use of insulin ([facility]) Administer 3 mg via [...] Mammo: Ordered 11/2022 Pap: Unknown. Referred to [facility] 11/2022 for PMB. Ultrasound pending C-scope: 2019, precancerous polyps Cirrhosis of liver 04/21/2018 Overview (09/09/2023): Decompensated QURESHI cirrhosis MELD-Na: 16. Followed by [facility]. Paracentesis q. 2 weeks. EGD 2019 [...] 5:20 PM EDT): I left message with [facility] requesting provider-provider consult given severity of [...] plan. I will reach out directly to [facility] for update and recommend patient placemen [...] Needs new psychiatrist. On wait list at [facility] in [place]. Referred to [facility] psychopharm clinic 11/2022 Assessment & Plan [...] from psych provider. Catherine was referred to [facility] on 03/31. Information given to patient with [facility] contact number to request intake for psychotherapy and psychiatry services. During today's consult, Catherine was engaged with active, reflective listening. Reviewed and assessed for risk, current stressors and triggers using open-ended questions. Pt agreed with plan to contact [facility] and will update clinician if extra support is needed for MH services. PLAN: (check all that apply) Continue with current services (defined as services in the past 12 months) . Pt was referred to [facility] on 03/31. clinician provided information and printed out letter with agency contact numbers. clinician will be available if requested during next consult. Assessment & Plan (02/12/2024 9:53 AM EDT): PLAN: (check all that apply) New/Additional Services needed Off-site services for Behavioral Health Integration Plan External OP therapy referral and OP psychiatry Referral Patient Self Plan Patient to reach out to [facility] team as needed, Comply with [...] 3-Significant loss of protective sensation. Eye Exam:Pending [facility] referral Lipid panel: 11/2022 ASCVD: 6.7% [...] Plan (09/09/2023 4:10 PM EST): POC BS [facility] s/p 10 units lispro in [...] sliding scale as prescribed STAT referral to [facility] DM educator Lab Results Component Value [...] and do not with to continue with [facility] endocrinology Resolved Problems Problem Noted Date [...] Provider, Generic External Data 07/08/2025 Patient Outreach [facility] MEDICINE [address] [place] [address] Aan Davis FNP Pre-visit Planning ((Unable to reach for PVP screening, LVM) to be completed in office ) 06/28/2025 Orders Only GENERIC EXTERNAL DATA DEPARTMENT Provider, Generic External Data 06/16/2025 Patient Outreach [facility] MEDICINE [address] [place] [address] Ana Davis FNP Transition Of Care (Tcm) (HDF unscheduled ) 06/15/2025 Patient Outreach [facility] MED & PEDS [address] [place] [address] Ana Davis FNP 06/10/2025 Patient Outreach [facility] MEDICINE [address] [place] [address] Ana Davis FNP 06/03/2025 Patient Outreach [facility] MED & PEDS [address] [place] [address] [facility] 05/28/2025 Orders Only GENERIC EXTERNAL DATA DEPARTMENT Provider, Generic External Data 05/24/2025 Patient Outreach [address] [address] [facility] Transition Of Care (Tcm) (HDF- Unscheduled -patient was transferred to a Rehab) 05/20/2025 Patient Outreach [facility] MED & PEDS [address] [place] [address] [facility] 05/20/2025 Patient Outreach [facility] MED & PEDS [address] [place] [address] [facility] Care Cordination (CP Care Coordination Chart Review ) 05/20/2025 Patient Outreach [address] [address] [facility] 05/14/2025 Results Follow-Up [address] [address] Maye Ortiz NP Glucose, Whole Blood, CBC auto differential, Prothrombin Time-INR, Additional followed-up results: 2 05/14/2025 Orders Only [address] [address] Maye Ortiz NP 05/14/2025 Orders Only GENERIC [...] the past 12 months, has t he [employer], gas, oil or water company threatened to [...] Description 07/16/2025 2:00 PM EDT Office Visit [facility] MEDICINE [address] [place] [address] [facility], [facility] [address] [place] [address] 08/04/2025 3:30 PM EDT Office Visit [facility] OPTOMETRY [address] [place] [address] Elisabeth Melchor, OD [address] [place] [address] Health Maintenance Due Date Last Done Comments [...] Component 10.4(02/13/20 25 2:34 PM EDT) No PuiaAndree PharmD Procedures Procedure Name Priority Date/Time Associated Diagnosis Comments COMPREHENSIVE METABOLIC PANEL Routine 07/08/2025 10:57 AM EDT PROTHROMBIN TIME-INR Routine 07/08/2025 10:57 AM EDT CBC Routine 07/08/2025 10:57 AM EDT B TYPE NATRIURETIC PEPTIDE (BNP) Routine 07/08/2025 10:57 AM EDT Heart murmur US ABDOMEN COMPLETE Routine 06/28/2025 1 0:44 [...] Prothrombin Time 14.2(H) 10.9 - 12.4 SEC [facility] INTERNATIONAL NORM RATIO 1.2(H) 0.9 - 1.1 [facility] Comment:INTERNATIONAL NORMAL IZED RATIO (INR) [...] ORDERAB LES Final Result Performing Organization Address City/[facility]/ZIP Co de Phone Number [facility] [address] [place] [address] [phone] * (ABNORMAL) CBC (07/08/2025 10:57 AM EDT) White Blood Count 3.0(L) 4.8 - 10.8 X10*3/uL [facility] Red Blood Count 2.82(L) 4.20 - 5.50 X10*6/uL [facility] Hemoglobin 8.9(L) 12.0 - 16.0 g/dl [facility] Hematocrit 25.9(L) 37.0 - 47.0 % [facility] Mean Corpuscular Volume 91.8 80.0 - 98.0 fL [facility] Mean Corpuscular Hemoglobin 31.6 27.0 - 33.0 pg [facility] Mean Corpuscular HGB Conc 34.4 31.0 - 35.0 g/dl [facility] Red Cell Distribution Width 14.4 11.0 - 16.0 % [facility] Platelet Count 22(L) 160 - 400 X10*3/uL [facility] Mean Platelet Volume 11.9 9.4 - 12.3 fL [facility] NRBC Pct Auto 0.0 0.0 - 0.2 /100WBC [facility] NRBC Abs Auto 0.000 0.0 - 0.012 X10*3/uL [facility] 07/08/2025 10:5 7 AM EDT 07/08/2025 10:57 AM EDT us Generic External Data Provider LAB BLOOD ORDERAB LES Final Result Performing Organization Address City/[facility]/ZIP Co de Phone Number [facility] [address] [place] [address] [phone] * B Type Natriuretic Peptide (BNP) (07/08/2025 10:57 AM EDT) B Type Natriuretic Peptide 51 <100 pg/mL [facility] Blood Venous blood specimen / Unknown 07/08/2025 10:57 AM EDT 07/08/2025 10:57 AM EDT [facility] LAB BLOOD ORDERABLES Final Re sult [facility] [address] [place] [address] [phone] * (ABNORMAL) Comprehensive Metabolic Panel (07/08/2025 10:57 AM EDT) Pathologist [facility] Sodium 136 135 - 145 mmol/L [facility] Potassium 4.5 3.3 - 5.1 mmol/L [facility] Chloride 110(H) 96 - 108 mmol/L [facility] Carbon Dioxide 23 22 - 29 mmol/L [facility] Anion Gap 8(L) 12 - 20 [facility] Urea Nitrogen (BUN) 31(H) 9 - 16 mg/dL [facility] Creatinine, Serum 0.98 0.5 - 1.4 mg/dL [facility] Estimated Glomerular Filt Rate 57 [facility] Comment:Chronic Kidney Disea se: Estimated GFR < 60 mL/min/1.08b6Ysvhua Kidney Disease: Estimated GFR < 15 mL/min/1.73m2 Glucose 237(H) 60 - 115 mg/dL [facility] Calcium 8.6 8.4 - 10.2 mg/dL [facility] Bilirubin, Total 0.7 0.0 - 1.0 mg/dL [facility] Aspartate Amino Transferase 41(H) 5 - 31 U/L [facility] Alanine Aminotransferase 24 0 - 31 U/L [facility] Total Protein 6.8 6.5 - 8.0 g/dL [facility] Albumin Level 3.0(L) 3.5 - 5.0 g/dL [facility] Alkaline Phosphatase 151(H) 39 - 117 U/L [facility] 07/08/2025 10:5 7 AM EDT 07/08/2025 10:57 AM EDT us Generic External Data Provider LAB BLOOD ORDERAB LES Final Result [facility] [address] [place] [phone] * US Abdomen Complete (06/28/2025 10:44 AM EDT) Anatomical Region Laterality Modality Abdomen Ultrasound 06/28/2025 10:4 4 AM EDT Narrative 06/28/2025 1:02 PM EDT [address] [address] Ultrasound Report Signed Patient: Catherine Stern MR#: [id number] : 1960 Acct:[id number] Age/Sex: 64 / F ADM Date: 06/28/25 Loc: HO.[facility] Attending Dr: Tono Nicole MD Ordering Physician: Bobbi Roldan MD Date of Service: 06/28/25 Procedure(s): US abdomen complete Accession Number(s): [id number] cc: [place] [facility]; Bobib Roldan MD Reason for Exam: K74.60 - [...] 06/28/25 1300 DD/ 1044 TD/TT: 06/28/25 1057 Floor Coverer Apprentice: Procedure Note Donotuseinterpreter, Image - 06/28/2025 [place] [address] Ultrasound Report Signed Patient: Maki Stern#: [id number] : 1960cct:[id number] Age/Sex: 64 / FADM Date: 06/28/25 Loc: .[facility] Attending Dr: Tono Nicole MD Ordering Physician: Bobbi Roldan MD Date of Service: 06/28/25 Procedure(s): US abdomen complete Accession Number(s): [id number] cc: [facility]; Bobbi Roldan MD Reason for Exam: K74.60 [...] 06/28/25 1300 DD/ 1044 TD/TT: 06/28/25 1057 Floor Coverer Apprentice: us [facility] External Provider IMG US PROCEDURES Edited Result - Final * Glucose, Whole Blood (06/28/2025 9:25 AM EDT) Only the most recent of3 resultswithin the time period is included. Glucose, Whole Blood 95 60 - 115 mg/dL [facility] Comment:METER #: [id number] 06/28/2025 9:25 AM EDT 06/28/2025 9:28 AM EDT Generic External Data Provider LAB BLOOD ORDERAB LES Final Result [facility] [address] [place] [address] [phone] * US guided abdominal paracentesis (05/28/2025 9:31 AM EDT) Only the most recent of2 resultswithin the time period is included. Anatomical Region Laterality Modality Abdomen Ultrasound 05/28/2025 9:31 AM EDT Narrative 05/28/2025 2:16 PM EDT [address] [address] Ultrasound Report Signed Patient: Catherine Stern MR#: [id number] : 1960 Acct:[id number] Age/Sex: 64 / F ADM Date: 05/28/25 Loc: HO.[facility] Attending Dr: Mallorie Watson NP Ordering Physician: Mallorie Watson NP Date of Service: 05/28/25 Procedure(s): US paracentesis abd w/image Accession Number(s): [id number] cc: Mallorie Watson NP; [facility] EXAMINATION: US GUIDED PARACENTESIS CLINICAL INFORMATION: Ascites. [...] 05/28/25 1414 DD/ 0931 TD/TT: 05/28/25 1049 Floor Coverer Apprentice: [facility] Procedure Note Donotuseinterpreter, Image - 05/28/[address] [address] Ultrasound Report Signed Patient: Alicia SternnMR#: [id number] : 1960cct:[id number] Age/Sex: 64 / FADM Date: 05/28/25 Loc: HO.[facility] Attending Dr: Mallorie Watson COATER SMOKING PIPE Ordering Physician: Mallorie Watson NP Date of Service: 05/28/25 Procedure(s): US paracentesis abd w/image Accession Number(s): [id number] cc: Mallorie Watson NP; [facility] EXAMINATION: US GUIDED PARACENTESIS CLINICAL INFORMATION: Ascites. [...] 05/28/25 1414 DD/ 0931 TD/TT: 05/28/25 1049 Floor Coverer Apprentice: KIT us [facility] External Provider IMG US PROCEDURES Final Result * US Abdomen Limited (05/28/2025 9:31 AM EDT) Anatomical Region Laterality Modality Abdomen Ultrasound 05/28/2025 9:31 AM EDT Narrative 06/11/2025 8:40 AM EDT [place] [address] Ultrasound Report Signed Patient: Catherine Stern MR#: [id number] : 1960 Acct:[id number] Age/Sex: 64 / F ADM Date: 05/28/25 Loc: HO.[facility] Attending Dr: Mallorie Watson NP Ordering Physician: Mallorie Watson NP Date of Service: 05/28/25 Procedure(s): US abdomen limited Accession Number(s): [id number] cc: Mallorie Watson NP; [facility] EXAMINATION: US GUIDED PARACENTESIS CLINICAL INFORMATION: Ascites. [...] Signed By: 06/11/25 0840 DD/ 0 TD/TT: 05/28/25 1049 Floor Coverer Apprentice: KIT Procedure Note Donotuseinterpreter, Image - 06/11/2025 [place] [address] Ultrasound Report Signed Patient: Maki Stern#: [id number] : 1960cct:[id number] Age/Sex: 64 / FADM Date: 05/28/25 Loc: HO[facility] Attending Dr: Mallorie Watson NP Ordering Physician: Mallorie Watson NP Date of Service: 05/28/25 Procedure(s): US abdomen limited Accession Number(s): [id number] cc: Mallorie Watson COATER SMOKING PIPE; [facility] EXAMINATION: US GUIDED PARACENTESIS CLINICAL INFORMATION: Ascites. [...] RP Dictated By: Anderson Paz MD Signed By:06/11/2540 DD/ 0 TD/TT: 05/28/25 1049 Floor Coverer Apprentice: KIT [facility] External Provider IMG US PROCEDURES Final Result * (ABNORMAL) CBC auto differential (05/14/2025 9:34 AM EDT) White Blood Count 3.2(L) 4.8 - 10.8 X10*3/uL [facility] Red Blood Count 2.55(L) 4.20 - 5.50 X10*6/uL [facility] Hemoglobin 8.0(L) 12.0 - 16.0 g/dl [facility] Hematocrit 23.4(L) 37.0 - 47.0 % [facility] Mean Corpuscular Volume 91.8 80.0 - 98.0 fL [facility] Mean Corpuscular Hemoglobin 31.4 27.0 - 33.0 pg [facility] Mean Corpuscular HGB Conc 34.2 31.0 - 35.0 g/dl [facility] Red Cell Distribution Width 14.8 11.0 - 16.0 % [facility] Platelet Count 22(L) 160 - 400 X10*3/uL [facility] Mean Platelet Volume 10.2 9.4 - 12.3 fL [facility] Neutrophils Percent Auto 67.5 45 - 73 % [facility] Imm Gran Pct Auto 0.9(H) 0.0 - 0.4 % [facility] Lymphocytes Percent Auto 11.6(L) 20 - 40 % [facility] Monocytes Percent Auto 7.8 2 - 11 % [facility] Eosinophils Percent Auto 11.6(H) 0 - 4 % [facility] Basophils Percent Auto 0.6 0 - 2 % [facility] NRBC Pct Auto 0.0 0.0 - 0.2 /100WBC [facility] Neutrophils Absolute Auto 2.2 2.0 - 8.3 x10*3/uL [facility] Imm Gran Abs Auto 0.03 0.00 - 0.03 X10*3/uL [facility] Lymphocytes Absolute Auto 0.4(L) 1.2 - 4.9 X10*3/uL [facility] Monocytes Absolute Auto 0.3 0.1 - 1.2 X10*3/uL [facility] Eosinophils Absolute Auto 0.4 0.0 - 0.4 X10*3/uL [facility] Basophils Absolute Auto 0.0 0.0 - 0.2 X10*3/uL [facility] NRBC Abs Auto 0.000 0.0 - 0.012 X10*3/uL [facility] 05/14/2025 9:34 AM EDT 05/14/2025 9:37 AM EDT Generic External Data Provider LAB BLOOD ORDERAB LES Final Result Performing Organization Address [facility]/ZIP Co de Phone Number [facility] [address] [place] [phone] * Partial Thromboplastin Time, Activated (APTT) (05/14/2025 9:34 AM EDT) Partial Thromboplastin Time 30.3 26.0 - 36.8 SEC [facility] Comment:For information rega rding the monitoring of direct thrombininhibitors, please refer to Pharmacy. 05/14/2025 9:34 AM EDT 05/14/2025 9:37 AM EDT [employer] External Data Provider LAB BLOOD ORDERAB LES Final Result Performing Organization Address [facility]/ZIP Co de Phone Number [facility] [address] [place] [phone] * (ABNORMAL) Basic Metabolic Panel (05/14/2025 9:34 AM EDT) Sodium 140 135 - 145 mmol/L [facility] Potassium 4.4 3.3 - 5.1 mmol/L [facility] Chloride 114(H) 96 - 108 mmol/L [facility] Carbon Dioxide 20(L) 22 - 29 mmol/L [facility] Anion Gap 10(L) 12 - 20 [facility] Urea Nitrogen (BUN) 27(H) 9 - 16 mg/dL [facility] Creatinine, Serum 1.07 0.5 - 1.4 mg/dL [facility] Creatinine Clr Calc Pharmacy 55.6 [facility] Comment:Provided height and weight: 157.48 cm,88.6 kg.eGFR (calculated from the MDRD study equation) and eCrCl(calculated from the Cockcroft-Gault equation) are based ondifferent parameters and may not yield comparable results.If eCrCl result is absurd, please check patient'sheight/weight. Estimated Glomerular Filt Rate 52 [facility] Comment:Chronic Kidney Disea se: Estimated GFR < 60 mL/min/1.66l8Syhptd Kidney Disease: Estimated GFR < 15 mL/min/1.73m2 Glucose 242(H) 60 - 115 mg/dL [facility] Calcium 7.9(L) 8.4 - 10.2 mg/dL [facility] 05/14/2025 9:34 AM EDT 05/14/2025 9:37 AM EDT Generic External Data Provider LAB BLOOD ORDERAB LES Final Result [facility] [address] [place] [phone] * (ABNORMAL) POCT HGB A1C (02/12/2025 2:34 PM EDT) Hemoglobin A1C 10.4(A) 4.0 - 6.0 % QC Media Lot # [id number] Lot# Expiration Date [id number] Blood 02/12/2025 2:34 PM EDT [facility] ENGINEER CHIEF POINT OF CARE TEST ENTER/EDIT ORDERABLES Final Result * Lipid Panel, Standard (08/31/2024 11:55 AM EST) Triglycerides 53 <150 mg/dL [facility] Comment:Desirable Triglyceri de: less than 150 mg/dLBorderline High Triglyceride 150-199 mg/dLHigh Triglyceride: 200-499 mg/dLVery High Triglyceride: greater than or equal to 5OO mg/dL Cholesterol 132 <200 mg/dL [facility] Comment:Desirable Cholestero l: less than 200 mg/dLBorderline High Cholesterol: 200-239 mg/dLHigh Cholesterol: greater than 239 mg/dL LDL Cholesterol Calculated 74 <100 mg/dL [facility] Comment:Desirable LDL: less than 100 mg/dLNear Optimal/Above Optimal LDL: 110- 129 mg/dLBorderline High LDL: 130-159 mg/dLHigh LDL: 160-189 mg/dLVery High LDL: greater than or equal to 190 mg/dL HDL Cholesterol 48 >40 mg/dL [facility] Comment:Desirable HDL: great er than 40 mg/dL Note: This HDL assay may give artificially low results in patients with liver disease. Blood Venous blood specimen / Unknown 08/31/2024 11:55 AM EST 08/31/2024 1:07 PM EST [facility] LAB BLOOD ORDERABLES Final Re sult [facility] [address] [place] [phone] * Hepatitis C Antibody with Reflex to HCV, RNA, Quantitative, Real-Time PCR (12/03/2022 11:57 AM EST) Hepatitis C Antibody NON-REACT LAURA NON-REACT LAURA [facility] [employer] Index 0.18 <1.00 [facility] Comment: HCV antibody was non-reactive. There is no laboratory evidence of HCV infection. In most cases, no further action is required. However, if recent HCV exposure is suspected, a test for HCV RNA (test code 38892) is suggested. For additional information please refer to http://education.[employer]/faq/HRD74p6 (This link is being provided for informational/ educational purposes only.) Blood Venous blood specimen / Unknown 12/03/2022 11:57 AM EST 12/03/2022 11:58 AM EST Narrative [facility] - 12/04/2022 2:01 AM EST FASTING:NO FASTING: NO [facility] ENGINEER CHIEF LAB BLOOD ORDERABLES Final Re sult FRANCIA Perez [address], [place] [address] [facility] [address] [facility], ([address]) [place] [address] * HIV-1/2 Antigen and Antibodies, Fourth Generation, with Reflexes (12/03/2022 11:57 AM EST) HIV Antigen/Antibody, 4th Generation NON-REAC TIVE NON-REAC TIVE [facility] Comment: HIV-1 antigen and HIV-1/HIV-2 antibodies [...] purpose. For additional information please refer to http://education.[employer]/faq/BMQ383 (This link is being provided for informational/ educational purposes only.) The performance of this assay has not been clinically validated in patients less than 2 years old. Blood Venous blood specimen / Unknown 12/03/2022 11:57 AM EST 12/03/2022 11:58 AM EST Narrative [facility] - 12/04/2022 2:01 AM EST FASTING:NO FASTING: NO [facility] ENGINEER CHIEF LAB BLOOD ORDERABLES Final Re sult FRANCIA Perez [address], [place] [address] [facility] [address] [facility], ([address]) [place] [address] * DIGITAL BILATERAL SCREEN 1 (08/17/2019 4:20 PM EDT) Anatomical Region Laterality Modality Breast Bilateral Mammography 08/17/2019 4:20 PM EDT Narrative 08/17/2019 4:22 PM EDT Refer to the Notes tab for result details [facility] Procedure: DIGITAL BILATERAL SCREEN 1 Procedure Note Provider, MD Paulo - 01/12/2023 Refer to the Notes tab for result details [facility] Procedure: DIGITAL BILATERAL SCREEN 1 Yash Arredondo ENGINEER CHIEF IMG BI PROCEDURES Final Result from Last 3 Months or Most Recently Relevant to Health Maintenance Insurance [employer] Care Teams Follow Up Clerk Relationship Specialty Start Date End Date Ana Davis FNP [address] [place] [phone] PCP - General Family Medicine 04/05/22 Andree Ulloa PharmD [address] [place] [phone] Pharmacist Internal Medicine 05/09/23 Flavia Segundo Pitching CoachCharter And Tour Bus Driver 10/10/23 Gabrielle Fitch Pitching CoachCharter And Tour Bus Driver 11/05/24 [facility] [employer] 02/06/25
--- OUTSIDE RECORDS SUMMARY | 2025-07-13 12:10 | XMS_ITS | Encounter Summary ---
Author Organization [employer] Address [address] [facility] [address] [place] [address] Care Team Providers Care Newspaper Publisher Name Role Phone [facility] Primary Care Provider [phone] Andree Ulloa PharmD Unavailable [phone] Reason for Visit * Reason Comments Pre-visit Planning (Unable to reach for PVP screening, LVM) to be completed in office Encounter Details Date Type Department Care Team (Late st Contact Info) Description 07/08/2025 Patient Outreach [facility] MEDICINE [address] [place], [place] [phone] [facility] [address] [place] [address] Pre-visit Planning ((Unable to reach for PVP [...] Upcoming Encounters Date Type Department Care Team ([facility] st Contact Info) Description 07/16/2025 2:00 PM EDT Office Visit [facility] MEDICINE [address] [place] [address] [place], Ana, FALSEWORK BUILDER [address] [place] [address] 08/04/2025 3:30 PM EDT Office Visit [facility] OPTOMETRY [address] [place] [address] Elisabeth Melchor, OD [address] [place] [address] documented as of this encounter Goals Goal [...] documented as of this encounter Care Teams Newspaper Publisher Relationship Specialty Start Date End Date Ana Davis FNP [address] [place] [address] PCP - General Family Medicine 04/05/22 Andree Ulloa PharmD [address] [place] [address] Pharmacist Internal Medicine 05/09/23 Flavia Segundo Internet Marketing ConsultantCharter Representative 10/10/23 Gabrielle Fitch Internet Marketing ConsultantCharter Representative 11/05/24 [employer] 02/06/25 documented as of this encounter
--- OUTSIDE RECORDS SUMMARY | 2025-07-13 12:10 | XMS_ITS | Encounter Summary ---
Author Organization [employer] Address [address] [facility] [address] [place] [address] Care Team Providers Care Central Control Room Operator Name Role Phone [facility] Primary Care Provider [phone] Andree Ulloa PharmD Unavailable [phone] Maude Dennis RN Unavailable [phone] Jacquie Sarkar Unavailable Jacquie Sarkar Unavailable Reason for Visit * Reason Onset Date Comments requesting a call back 02/05/2023 Encounter Details Date Type Department Care Team ([facility] st Contact Info) Description 02/05/2023 Telephone [facility] MEDICINE [address] [place], [place] [phone] [facility] [address] [place] [address] requesting a call back Social History Tobacco [...] . States needs to return them to [facility] . documented in this encounter Plan of Treatment Upcoming Encounters Date Type Department Care Team (Late st Contact Info) Description 07/16/2025 2:00 PM EDT Office Visit [facility] MEDICINE [address] [place] [address] [facility] [address] [place] [address] 08/04/2025 3:30 PM EDT Office Visit [facility] OPTOMETRY [address] [place] [address] Tarka, Elisabeth, OD [address] [place] [address] documented as of this encounter Visit Diagnoses Not on filedocumented in this encounter Additional Health Concerns Assessment Noted Time PHQ-9 Depression Total Score: 0 12/03/19 23 10:53 AM EST documented as of this encounter Care Teams Central Control Room Operator Relationship Specialty Start Date End Date SusanAna levy [facility] [address] [place] [address] PCP - General Family Medicine 04/05/22 Andree Ulloa PharmD [address] [place] [address] Pharmacist Internal Medicine 05/09/23 Maude Dennis, MARQUITA [address] [place] [phone] Special Effects DesignerWrapper Dipper 08/27/24 12/22/24 Jacquie Sarkar 05/20/25 06/03/25 Jacquie Sarkar 06/10/25 06/15/25 Flavia Segundo Control AnalystWrapper Dipper 10/10/23 [employer] 08/14/24 02/11/25 Gabrielle Fitch Control AnalystWrapper Dipper 11/05/24 [employer] 02/06/25 documented as of this encounter
--- OUTSIDE RECORDS SUMMARY | 2025-07-13 12:10 | XMS_ITS | Clinical Summary ---
Author Organization [facility] Address [address] [place] [address] Phone Care Team Providers Care Hogshead Cooper Name Role Phone Yash Arredondo NP Primary Care Provider [phone] Allergies Active Allergy Reactions Criticality Noted Date [...] Decompensated QURESHI cirrhosis MELD-Na: 16. Followed by [facility]. Paracentesis q. 2 weeks. EGD 2019 [...] mmol/L LAB CHEMISTRY METHOD 11/24/2024 8:52 PM [facility] Potassium 4.0 3.5 - 5.5 mmol/L LAB CHEMISTRY METHOD 11/24/2024 8:52 PM [facility] Chloride 103 96 - 110 mmol/L LAB CHEMISTRY METHOD 11/24/2024 8:52 PM [facility] CO2 25 21 - 32 mmol/L LAB CHEMISTRY METHOD 11/24/2024 8:52 PM [facility] Anion Gap 4 3 - 11 LAB CHEMISTRY METHOD 11/24/2024 8:52 PM [facility] Glucose 353(H) 70 - 100 mg/dL LAB CHEMISTRY METHOD 11/24/2024 8:52 PM [facility] BUN 23 5 - 25 mg/dL LAB CHEMISTRY METHOD 11/24/2024 8:52 PM [facility] Creatinine 0.93 0.50 - 1.10 mg/dL LAB CHEMISTRY METHOD 11/24/2024 8:52 PM [facility] eGFR 69 >=60 mL/min/1. 73m2 LAB CHEMISTRY METHOD 11/24/2024 8:52 PM [facility] Comment:Calculation based on the Chronic Kidney Disease Epidemiology Collaboration (CKD-EPI) equation refit without adjustment for race. BUN/Creatinine Ratio 24.7 LAB CHEMISTRY METHOD 11/24/2024 8:52 PM [facility] Calcium 8.3(L) 8.5 - 10.5 mg/dL LAB CHEMISTRY METHOD 11/24/2024 8:52 PM [facility] AST (SGOT) 29 10 - 42 unit/L LAB CHEMISTRY METHOD 11/24/2024 8:52 PM [facility] ALT (SGPT) 29 10 - 60 unit/L LAB CHEMISTRY METHOD 11/24/2024 8:52 PM [facility] Alkaline Phosphatase 188(H) 42 - 121 unit/L LAB CHEMISTRY METHOD 11/24/2024 8:52 PM [facility] Total Protein 6.6 6.0 - 8.0 g/dL LAB CHEMISTRY METHOD 11/24/2024 8:52 PM [facility] Albumin 2.4(L) 3.2 - 5.0 g/dL LAB CHEMISTRY METHOD 11/24/2024 8:52 PM [facility] Total Bilirubin 0.9 0.0 - 1.4 mg/dL LAB CHEMISTRY METHOD 11/24/2024 8:52 PM [facility] Blood Venous blood specimen / Unknown Venipuncture / Unknown 11/24/2024 8:01 PM EST 11/24/2024 8:11 PM EST us Rigo Genao MD LAB BLOOD ORDERABLES Final Result [facility] [address] [place] [address], * Lipid panel with reflex to direct LDL (10/13/2024 5:24 AM EST) Cholesterol 125 0 - 200 mg/dL LAB CHEMISTRY METHOD 10/13/2024 6:43 AM EST [facility] Triglycerides 66 0 - 150 mg/dL LAB CHEMISTRY METHOD 10/13/2024 6:43 AM [facility] HDL 48 >=40 mg/dL LAB CHEMISTRY METHOD 10/13/2024 6:43 AM [facility] LDL Calculated 64 0 - 100 mg/dL LAB CHEMISTRY METHOD 10/13/2024 6:43 AM EST [facility] VLDL Cholesterol Luke 13.2 mg/dL LAB CHEMISTRY METHOD 10/13/2024 6:43 AM [facility] Non HDL Chol. (LDL+VLDL) 77 <145 mg/dL LAB CHEMISTRY METHOD 10/13/2024 6:43 AM [facility] Chol/HDL Ratio 2.6 0.0 - 4.4 LAB CHEMISTRY METHOD 10/13/2024 6:43 AM [facility] Blood Venous blood specimen / Unknown Venipuncture / Unknown 10/13/2024 5:24 AM EST 10/13/2024 6:07 AM EST Salena RODRIGUEZ LAB BLOOD ORDERABLES Fi nal Result [facility] [address] [place] [address], from Last 3 Months or Most Recently Relevant to Health Maintenance Insurance MEDICAID - [place] Advance Directives Documents on File Type Date Recorded Patient Rounding Machine Tender Expl anation Health Care Decision (hx) [...] currently active code status orders. Care Teams Hogshead Cooper Relationship Specialty Start Date End Date Yash Arredondo NP [address] [place] [address] PCP - General 09/15/13
--- OUTSIDE RECORDS SUMMARY | 2025-07-13 12:10 | XMS_ITS | Encounter Summary ---
Author Organization [employer] Address [address] [facility] 7[address] [place] [address] Care Team Providers Care Office Associate Name Role Phone Ana Davis FISCAL ACCOUNTANT Primary Care Provider [phone] Andree Ulloa PharmD Unavailable [phone] Jacquie Sarkar Unavailable Jacquie Sarkar Unavailable Reason for Referral * Consultation (Routine) - Authorized Specialty Diagnoses / Procedures Referred By Ivelisse segura Referred To Contact Pharmacy Diagnoses Type 2 diabetes mellitus without complication, with long-term current use of insulin (CMS/HCC) Catalina Mendez MD [address] [place] [address] Phone: tel: fax: Referral ID Status Reason Start Date Expiration Date Visits Requested Visits Authorized [id number] Authorized Consult and Treat 02/23/2025 02/23/2026 6 6 Encounter Details Date Type Department Care Team (Late st Contact Info) Description 02/23/2025 Orders Only [facility] MEDICINE [address] [place], [place] [phone] Catalina Mendez MD [address] [place], [place] [phone] Type 2 diabetes mellitus without complication, with [...] Description 07/16/2025 2:00 PM EDT Office Visit [facility] MEDICINE [address] [place] [address] [facility] [address] [place] [address] 08/04/2025 3:30 PM EDT Office Visit [facility] [address] [place] [address] Elisabeth Melchor, OD [address] [place] [address] Scheduled Referrals Name Type Priority Associated Diagnoses Orde r Schedule Referral to Pharmacy CDTM Outpatient Referral Routine Type 2 diabetes mellitus without complication, with long-term current use of insulin (CMS/[facility]) Ordered: 02/23/2025 documented as of this encounter [...] complication, with long-term current use of insulin (CMS/[facility])- Primary documented in this encounter Additional Health Concerns Assessment Noted Time PHQ-9 Depression Total Score: 10 025 1:44 PM EST documented as of this encounter Care Teams Office Associate Relationship Specialty Start Date End Date [facility] [address] [place] [address] PCP - General Family Medicine 04/05/22 Andree Ulloa PharmD [address] [place], [place] [phone] Pharmacist Internal Medicine 05/09/23 Jacquie Sarkar 05/20/25 06/03/25 Jacquie Sarkar 06/10/25 06/15/25 Flavia Segundo Fitness Sales ConsultantProduction Broacher 10/10/23 Gabrielle Fitch Fitness Sales ConsultantProduction Broacher 11/05/24 [employer] 02/06/25 documented as of this encounter
--- NOTE | ~2025-07-16 | US_ITS ---
EXAMINATION: US ABDOMEN LIMITED CLINICAL INFORMATION: Cirrhosis, assess for ascites.. COMPARISON: 06/28/2025. TECHNIQUE: Real-time imaging of the abdomen all 4 quadrants. FINDINGS: Only trace ascites was visualized in the right upper quadrant. Ascites was insufficient volume for a safe paracentesis to be performed. US/US abdomen limited IMPRESSION: Insufficient ascites for safe paracentesis to be performed. Electronically signed by: Brock Acosta MD 07/16/2025 02:20 PM EDT
[2025-07-16 13:35] VITALS: BP 130/59; PULSE 83; RESP 16; TEMP 36.9; O2SAT 100
[2025-07-16 13:37] LABS: Glucose, Whole Blood 197 mg/dL (60-115)
--- NOTE | 2025-07-16 14:22 | PC.NURSE ---
Pt scanned by us had no fluid procedure canceled
== END ==
LOC: HO.SSS 12:55
PROVIDERS: PCP Registered Nurse; Visit Provider Family Medicine
DX: R18.8 Other ascites (principal); Z53.8 Procedure and treatment not carried out for other reasons; K74.60 Unspecified cirrhosis of liver
CPT/HCPCS: 76705; 82947

== ENCOUNTER → 2025-07-16 14:00 | Outpatient (BNV) | payer MEDICAID, SELFPAY | PROVIDERS: PCP Registered Nurse; Visit Provider Radiology Diagnostic Radiology | DX: R18.8 Other ascites (principal) | CPT/HCPCS: 76705 ==

== ENCOUNTER 2025-08-03 15:23 | Emergency (ER) | payer MEDICAID, SELFPAY ==
--- NOTE | ~2025-08-03 | XR_ITS ---
CLINICAL HISTORY: CP --- Additional Notes or Special Instructions: RN IN ROOM 1624 -GG 2 view chest x-ray Comparison: CR - XR CHEST 1V - 06/09/25 17:21 EDT Findings: Blunting of the right costophrenic angle. Normal size heart. No acute fracture. IMPRESSION: 1. Small right pleural effusion. 2. No acute cardiopulmonary findings. This document has been electronically signed by: Yony Gooden MD on 08/03/2025 18:19:10
[2025-08-03 15:33] VITALS: BP 130/60; PULSE 70; O2SAT 96
[2025-08-03 15:42] VITALS: BP 111/48; PULSE 81; RESP 16; TEMP 36.9; O2SAT 100; BMI 34.7
--- NOTE | 2025-08-03 16:08 | ED.CHESTPAIN ---
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 this afternoon. Chest pain has since resolved. Patient denies any current symptoms, and is feeling well. She is unable to report the circumstances surrounding the chest pain due to advanced dementia, however she is alert and oriented x4, she does believe that she lives with her daughter in a duplex condominium, unable to recall episode of chest pain today. No Other complaints or concerns at this time MD complaint: chest pain Treatment prior to arrival: none Risk Factors Coronary artery disease risk factors: none Thoracic aortic dissection risk factors: none Related Data On Oral Contraceptives: No Home Medications ?Medication ?Instructions ?Recorded ?Confirmed benztropine 0.5 mg tablet 0.5 mg PO BEDTIME 08/17/20 06/28/25 haloperidol 5 mg tablet 10 mg PO BID 08/17/20 06/28/25 insulin lispro 100 unit/mL See Protocol subcut TID 08/17/20 06/28/25 subcutaneous pen (Humalog KwikPen (U-100) Insulin) flash glucose sensor (FreeStyle #1 ea 05/01/23 06/28/25 Gurpreet 2 Sensor kit) insulin degludec 200 unit/mL (3 62 unit subcut BEDTIME 05/01/23 06/28/25 mL) subcutaneous pen (Tresiba FlexTouch U-200 insulin) blood-glucose meter (FreeStyle #1 ea 06/17/24 06/28/25 Austin Lite kit) ferrous gluconate 240 mg (27 mg 240 mg PO DAILY@0730 04/26/25 06/28/25 iron) tablet levofloxacin 250 mg tablet 250 mg PO DAILY 04/26/25 06/28/25 magnesium hydroxide 400 mg/5 mL 30 ml PO BEDTIME PRN constipation 04/26/25 06/28/25 oral suspension (Milk of Magnesia) #1 sennosides 8.6 mg capsule (senna) 8.6 mg PO BID PRN Constipation 04/26/25 06/28/25 acetaminophen 325 mg tablet 650 mg PO Q4H PRN Fever Or Pain 06/09/25 06/28/25 acetaminophen 650 mg rectal 650 mg AL Q4H PRN Fever Or Pain 06/09/25 06/28/25 suppository bisacodyl 10 mg rectal suppository 10 mg AL DAILY PRN constipation #2 06/09/25 06/28/25 lactulose 10 gram/15 mL (15 mL) 30 g PO TID 06/09/25 06/28/25 oral solution melatonin 3 mg tablet 3 mg PO BEDTIME PRN Sleep 06/09/25 06/28/25 naloxone 4 mg/actuation nasal 4 mg intranasal Q3M PRN overdose 06/09/25 06/28/25 spray (Narcan) sodium phosphates 19 gram-7 118 ml AL DAILY PRN constipation #3 06/09/25 06/28/25 gram/118 mL enema (Fleet Enema) spironolactone 50 mg tablet 50 mg PO DAILY 06/09/25 06/28/25 Previous Rx's ?Medication ?Instructions ?Recorded blood pressure monitor (Blood #1 ea 10/29/22 Pressure Kit) furosemide 40 mg tablet 60 mg (1.5 x 40 mg) PO DAILY 90 11/27/24 days #135 tabs rifaximin 550 mg tablet 550 mg PO BID 90 days #180 tabs 11/27/24 Allergies Allergy/AdvReac Type Severity Reaction Status Date / Time Penicillins Allergy Unknown HIVES Verified 08/03/25 15:43 Review of Systems Review of Systems: Constitutional : No Fever, No Chills ENT/Mouth : No sore throat, No Rhinorrhea Eyes: No Eye Pain, No Swelling, No Redness Cardiovascular : + Chest Pain (resolved), No SOB Respiratory : No Cough, No Sputum Gastrointestinal : No Nausea, No Vomiting, No Diarrhea, No abdominal Pain Genitourinary : No Dysuria, No Hematuria Musculoskeletal : No joint pain, No Myalgias, No Joint Swelling Skin : No Skin Lesions Neuro : No Weakness, No Numbness, No Headache All other systems reviewed and are negative Yes all other systems are reviewed and are negative Constitutional: Constitutional: Reports as per [facility] Past Medical History Attestation statement: The following information was validated with the patient. Medical History Seizure Schizoaffective disorder Diabetes Thrombocytopenia Hyperkalemia Esophageal varices determined by endoscopy Cirrhosis of liver with ascites Parkinson disease Hypertension Diabetes Surgical History Hx of esophagogastroduodenoscopy Hx of colonoscopy Family History Family History Father Colon cancer Mother Diabetes Colon polyps Daughter Lupus Social History Social History Household Members: Family Housing: Apartment Housing Other:: Duplex Are you a primary memory care program resident to a significant other at home: No Do you presently have visiting nurse or other home services: No Alcohol intake: former Patient Tobacco Use Status: Former Tobacco user Tobacco use type: Cigarette e-Cigarette/Vaping Use: Former Use Second Hand Smoke Exposure: No service: No Current occupational status: unemployed and disabled Physical Exam Vital Signs: Vital Signs: Last Vital Signs Temp 97.7 F 08/03/25 23:10 Pulse 81 08/03/25 23:10 Resp 20 08/03/25 23:10 BP 141/57 H 08/03/25 23:10 Pulse Ox 100 08/03/25 23:10 O2 Del Method Room Air 08/03/25 23:10 BMI result Body Mass Index 34.7 Const: General: cooperative, comfortable and no acute distress Orientation/consciousness: patient oriented x3 Limitations: no limitations HEENT: Head: Yes normal to inspection, Yes normocephalic and Yes atraumatic Ears: hearing grossly normal bilaterally General nose exam: Normal external nose present Face and sinus: Yes normal facial exam Mouth: Normal oral and palatal mucosa present, oropharynx normal and moist mucous membranes Throat: Yes posterior oropharynx normal Eyes: General: appearance normal, both eyes and all related structures Eyelids: Yes eyelids normal Conjunctivae: conjunctivae normal Sclerae: sclerae normal Pupils: Equal, round and reactive pupils present EOM: EOMs intact bilaterally Neck: Neck: Yes normal visual inspection, Yes full ROM and Yes no lymphadenopathy Lymphatic: no lymphadenopathy noted Chest: Chest palpation & inspection: normal inspection of the chest Resp: Effort & Inspection: normal respiratory effort and able to speak in complete sentences Auscultation: clear to auscultation bilaterally, no crackles, no rales, no rhonchi and no wheezes Cardio: Rate: regular rate Rhythm: regular rhythm Heart sounds: S1 normal heart sound present and S2 normal heart sound present GI: Other: Abdomen is soft, nontender, nondistended Inspection: Yes normal to inspection Skin: General skin exam: no rashes or lesions noted Trauma: no lacerations or abrasions Wounds: no wounds Neuro: General: patient oriented x3 Cranial nerves: Yes CN's II-XII intact bilaterally and Yes Equal, round and reactive pupils present Motor exam (neuro): 5/5 motor strength present throughout and Pronator motor function not present Extrem: General: Yes normal to inspection Right upper extremity: normal to inspection Left upper extremity: normal to inspection Right lower extremity: normal to inspection Left lower extremity: normal to inspection Course Reevaluation(s) Reevaluation #1: Patient 2 troponins negative. Chest x-ray negative pneumonia. Patient is not in CHF exacerbation. Chest x-ray shows small right pleural effusion. Patient is not in fluid overload. Patient speaking and answering staff and nurse well. Patient is not baseline mentally. Patient is not altered. Ammonia 62 which is decreased from previous visit of 74. No need for admission for hepatic encephalopathy. Patient given lactulose. Patient is at baseline presently and not in hepatic encephalopathy. Lab was ordered by previous provider. Case discussed [facility] Dr. Gleason who states patient can be discharged. patient has lactulose precsription at facility. Patient presently denies any chest pain. Patient ate dinner. 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 this afternoon. Will obtain labs, EKG, chest x-ray, viral swabs. 6:07 PM 08/03/2025 (Allyson Lynch PA-C): Labs returned, she has leukopenia at 3, with an H&H of 9.3/27.6, platelets low at 17. Patient has a history of pancytopenia, platelet count of 17. Baseline appears to be around 21 in 22. BUN slightly elevated at 41, creatinine of 1.22, troponin 3.3. Will need repeat. EKG normal sinus rhythm at a rate of 83bpm, with a right bundle-branch block, previous EKGs shows similar, history of a right bundle-branch block in the past. Discussed low platelets with my attending physician, Dr. Marcel serra around this number - no acute change. Given that patient is not actively bleeding, no additional workup needed at this time. We will continue to workup chest pain. Pending repeat troponin and chest x-ray report, sign-out given to my colleague, Xu Franklin PA-C Differential Diagnosis Differential Diagnoses: The differential diagnosis associated with the presentation includes ACS, viral illness, chest wall pain, Admission/Observation Consideration of admission/observation: Escalation of care including admission/observation considered Lab Data [facility] Lab Attestation statement: I reviewed the patient's lab results. See MDM 08/03/25 17:10 08/03/25 17:10 Labs: Lab Results 08/03/25 08/03/25 08/03/25 Range/Units 17:10 18:56 19:03 WBC 3.0 L (4.8-10.8) X10*3/uL RBC 3.00 L (4.20-5.50) X10*6/uL Hgb 9.3 L (12.0-16.0) g/dl Hct 27.6 L (37.0-47.0) % MCV 92.0 (80.0-98.0) fL MCH 31.0 (27.0-33.0) pg MCHC 33.7 (31.0-35.0) g/dl RDW 14.2 (11.0-16.0) % Plt Count 17 L* (160-400) X10*3/uL MPV 10.1 (9.4-12.3) fL Immature Gran % (Auto) 0.3 (0.0-0.4) % Neut % (Auto) 69.7 (45-73) % Lymph % (Auto) 14.8 L (20-40) % [place] % (Auto) 8.9 (2-11) % Eos % (Auto) 5.6 H (0-4) % Baso % (Auto) 0.7 (0-2) % Lymph # (Auto) 0.5 L (1.2-4.9) X10*3/uL [place] # (Auto) 0.3 (0.1-1.2) X10*3/uL Eos # (Auto) 0.2 (0.0-0.4) X10*3/uL Baso # (Auto) 0.0 (0.0-0.2) X10*3/uL Abs Immat Gran (auto) 0.01 (0.00-0.03) X10*3/uL Absolute Neuts (auto) 2.1 (2.0-8.3) x10*3/uL Absolute Nucleated RBC 0.000 (0.0-0.012) X10*3/uL Nucleated RBC % (auto) 0.0 (0.0-0.2) /100WBC Smear Tech's Comments VERIFIED Sodium 138 (135-145) mmol/L Potassium 4.4 (3.3-5.1) mmol/L Chloride 116 H (96-108) mmol/L Carbon Dioxide 19 L (22-29) mmol/L Anion Gap 7 L (12-20) BUN 41 H (9-16) mg/dL Creatinine 1.22 (0.5-1.4) mg/dL Estim Creat Clear Calc 47.4 Estimated GFR 44 Random Glucose 185 H (60-115) mg/dL Calcium 8.2 L (8.4-10.2) mg/dL Magnesium 2.2 (1.6-2.6) mg/dL Total Bilirubin 0.7 (0.0-1.0) mg/dL Direct Bilirubin 0.3 (0.0-0.5) mg/dL AST 33 H (5-31) U/L ALT 24 (0-31) U/L Alkaline Phosphatase 147 H (39-117) U/L Ammonia 62 H (13-55) umol/L Troponin I High Sens 3.3 4.2 (<3.5-17.0) ng/L NT-Pro-B Natriuret Pep 74.5 (<300) pg/mL Total Protein 6.4 L (6.5-8.0) g/dL Albumin 2.9 L (3.5-5.0) g/dL Lipase 42 (8-78) U/L COVID-19 (SHAGGY) Negative (Negative) COVID-19 Clin Com See Note Influenza Type A (NELSY) Negative (Negative) Influenza Type B (NELSY) Negative (Negative) Influenza A & B Note See Note Independent Interpretation I performed an independent interpretation of an: EKG Interpretation: EKG normal sinus rhythm at a rate of 83bpm, with a right bundle-branch block, previous EKGs shows similar, history of a right bundle-branch block in the past. External Record Review External record reviewed: Inpatient record, Office record, Outpatient record, Prior outpatient labs, Prior outpatient radiology, Primary care record and Outside ED record Discharge Plan Discharge Clinical Impression: Chest pain Patient Disposition: Xfer [facility] Transfer Details: [facility] Instructions: Chest Pain (ED) Additional Instructions: Recommend follow-up with primary care provider. Return to the ED immediately for any chest pain, shortness of breath, leg swelling, coughing up blood, chest pain/shortness of breath on inspiration, weakness, altered mental status, diarrhea, or any other concerning symptoms. Prescriptions: No Action benztropine 0.5 mg Tablet 0.5 mg PO BEDTIME haloperidol 5 mg Tablet 10 mg PO BID insulin lispro [Humalog KwikPen Insulin] 100 unit/mL Insulin Pen See Protocol SUBCUT TID Protocol: Insulin Correction Scale Less than or equal to 110 ---- Give (units): 0 111 to 150 Give (units): 0 151 to 200 Give (units): 2 201 to 250 Give (units): 4 251 to 300 Give (units): 6 301 to 350 Give (units): 8 Greater than 350 Give (units): 10 Call MD if Blood Glucose > : 400 Patient Comments: pt has MD sliding scale Rx Instructions: sliding scale acetaminophen 325 mg Tablet 650 mg PO Q4H PRN (Reason: Fever Or Pain) acetaminophen 650 mg Suppository 650 mg AL Q4H PRN (Reason: Fever Or Pain) melatonin 3 mg Tablet 3 mg PO BEDTIME PRN (Reason: Sleep) bisacodyl 10 mg Suppository 10 mg AL DAILY PRN (Reason: constipation #2) Fleet Enema 19-7 gram/118 mL Enema 118 ml AL DAILY PRN (Reason: constipation #3) spironolactone 50 mg Tablet 50 mg PO DAILY naloxone [Narcan] 4 mg/actuation [place],Non-Aerosol 4 mg INTRANASAL Q3M PRN (Reason: overdose) Rx Instructions: spray 1 dose into ONE nostril; alternate nostrils w each dose until help arrives lactulose 10 gram/15 mL (15 mL) solution 30 g PO TID (DME) blood pressure monitor [Blood Pressure Kit] Kit See Rx Instructions .Route Qty: 1 0RF Rx Instructions: As directed rifaximin 550 mg tablet 550 mg PO BID 90 Days Qty: 180 0RF furosemide 40 mg tablet 60 mg PO DAILY 90 Days Qty: 135 0RF levofloxacin 250 mg tablet 250 mg PO DAILY magnesium hydroxide [Milk of Magnesia] 400 mg/5 mL suspension 30 ml PO BEDTIME PRN (Reason: constipation #1) ferrous gluconate 240 mg (27 mg iron) tablet 240 mg PO DAILY@0730 senna 8.6 mg capsule 8.6 mg PO BID PRN (Reason: Constipation) insulin degludec [Tresiba FlexTouch U-200] 200 unit/mL (3 mL) insulin pen 62 unit subcut BEDTIME (DME) FreeStyle Gurpreet 2 Sensor Kit See Rx Instructions .ROUTE Q2W Qty: 1 Rx Instructions: As directed (DME) blood-glucose meter [FreeStyle Austin Lite] Kit See Rx Instructions .ROUTE QID Qty: 1 Rx Instructions: As directed Interventions: ED Discharge Assessment Last Done: 08/03/25 23:10 Discharge Date/Time: 08/04/25 00:06 Print Language: Urdu
--- NOTE | 2025-08-03 16:10 | ECG_ITS ---
Test Reason : CP Blood Pressure : */* mmHG Vent. Rate : 83 BPM Atrial Rate : 83 BPM P-R Int : 156 ms QRS Dur : 124 ms QT Int : 406 ms P-R-T Axes : 72 28 24 degrees QTcB Int : 477 ms Normal sinus rhythm Right bundle branch block Abnormal ECG When compared with ECG of 09-Jun-2025 15:39, Premature supraventricular complexes are no longer Present Referred By: Allyson Lynch Electronically Signed By: Gianni Wu
[2025-08-03 17:19] LABS: Hemoglobin 9.3 g/dl (12.0-16.0); Mean Corpuscular Volume 92.0 fL (80.0-98.0); NRBC Abs Auto 0.000 X10*3/uL (0.0-0.012); NRBC Pct Auto 0.0 /100WBC (0.0-0.2); PLT CLUMP 1; SCAN SMEAR FLAG 1
[2025-08-03 17:21] LABS: Hematocrit 27.6 % (37.0-47.0); Imm Gran Abs Auto 0.01 X10*3/uL (0.00-0.03); Imm Gran Pct Auto 0.3 % (0.0-0.4); Lymphocytes Absolute Auto 0.5 X10*3/uL (1.2-4.9); MANUAL DIFF FLAG SCAN; Mean Corpuscular HGB Conc 33.7 g/dl (31.0-35.0); Mean Corpuscular Hemoglobin 31.0 pg (27.0-33.0); Red Blood Count 3.00 X10*6/uL (4.20-5.50)
[2025-08-03 17:27] LABS: White Blood Count 3.0 X10*3/uL (4.8-10.8)
[2025-08-03 17:29] LABS: Platelet Count 17 X10*3/uL (160-400)
[2025-08-03 17:38] LABS: COVID-19 Test Negative (Negative); IDNOW Serial# 6674DD1D
[2025-08-03 17:40] LABS: Alanine Aminotransferase 24 U/L (0-31); Albumin Level 2.9 g/dL (3.5-5.0); Alkaline Phosphatase 147 U/L (39-117); Anion Gap 7 (12-20); Aspartate Amino Transferase 33 U/L (5-31); Blood Urea Nitrogen 41 mg/dL (9-16); Calcium 8.2 mg/dL (8.4-10.2); Carbon Dioxide 19 mmol/L (22-29); Chloride 116 mmol/L (96-108); Creatinine Clr Calc Pharmacy 47.4; Estimated Glomerular Filt Rate 44; Lipase 42 U/L (8-78); Magnesium 2.2 mg/dL (1.6-2.6); Potassium 4.4 mmol/L (3.3-5.1); Sodium 138 mmol/L (135-145); Total Protein 6.4 g/dL (6.5-8.0)
[2025-08-03 17:41] LABS: IDNOW Serial# 08D9AD1C; Influenza B2 Negative (Negative)
[2025-08-03 17:48] LABS: NT Pro B Type Natriuretic Pept 74.5 pg/mL (<300); Troponin-I High Sensitivity 3.3 ng/L (<3.5-17.0)
--- OUTSIDE RECORDS SUMMARY | 2025-08-03 18:28 | XMS_ITS | Clinical Summary ---
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 Followed by [facility]. Paracentesis q. 2 weeks. EGD 2019 with grade II varices. Colonoscopy 2019 with polyps removed. Tubular adenoma present. Lactulose 2-3x/day for hepatic encephalopathy with goal 2-3 BM's per day. On propranolol 30mg b.I.d for varices. Lasix 100mg daily and sironolactione 150mg for ascites. Thrombocytopenia (CMS/HCC V24) 04/21/2018 Surgical History Surgery Date Site/Laterality Comments OTHER SURGICAL HISTORY N/A PROCEDURE: [place] ABDOM PARACENTESIS DX/THER W/IMAGING GUIDANCE Medical History [...] Safety Answer Date Record ed Physical Abuse Unrecognized value 10/13/2024 Verbal Abuse Unrecognized value 10/13/2024 Comments Unknown Sex and Gender Information [...] Health Maintenance Due Date Last Done Comments Colorectal Cancer Screening: Colonoscopy 1961 Diabetes: Annual Foot Exam 1971 Diabetes: Annual Retina Eye Exam 1971 Hepatitis A Vaccines (1 of 2 - Risk 2-dose series) 1980 Cervical Cancer Screening: Pap Smear 1982 RSV Immunization Adult Patients (1 - Risk 50-74 years 1-dose series) 2011 Breast Cancer Screening 08/17/2021 08/17/2019 Social Influencers of Health Screening 09/23/2022 Zoster [...] mmol/L LAB CHEMISTRY METHOD 11/24/2024 8:52 PM [facility] Potassium 4.0 3.5 - 5.5 mmol/L LAB CHEMISTRY METHOD 11/24/2024 8:52 PM [facility] Chloride 103 96 - 110 mmol/L LAB CHEMISTRY METHOD 11/24/2024 8:52 PM [facility] CO2 25 21 - 32 mmol/L LAB CHEMISTRY METHOD 11/24/2024 8:52 PM [facility] Anion Gap 4 3 - 11 LAB CHEMISTRY METHOD 11/24/2024 8:52 PM [facility] Glucose 353(H) 70 - 100 mg/dL LAB CHEMISTRY METHOD 11/24/2024 8:52 PM [facility] BUN 23 5 - 25 mg/dL LAB CHEMISTRY METHOD 11/24/2024 8:52 PM [facility] Creatinine 0.93 0.50 - 1.10 mg/dL LAB CHEMISTRY METHOD 11/24/2024 8:52 PM [facility] eGFR 69 >=60 mL/min/1. 73m2 LAB CHEMISTRY METHOD 11/24/2024 8:52 PM [facility] Comment:Calculation based on the Chronic Kidney Disease Epidemiology Collaboration (CKD-EPI) equation refit without adjustment for race. BUN/Creatinine Ratio 24.7 LAB CHEMISTRY METHOD 11/24/2024 8:52 PM [facility] Calcium 8.3(L) 8.5 - 10.5 mg/dL LAB CHEMISTRY METHOD 11/24/2024 8:52 PM [facility] AST (SGOT) 29 10 - 42 unit/L LAB CHEMISTRY METHOD 11/24/2024 8:52 PM [facility] ALT (SGPT) 29 10 - 60 unit/L LAB CHEMISTRY METHOD 11/24/2024 8:52 PM [facility] Alkaline Phosphatase 188(H) 42 - 121 unit/L LAB CHEMISTRY METHOD 11/24/2024 8:52 PM [facility] Total Protein 6.6 6.0 - 8.0 g/dL LAB CHEMISTRY METHOD 11/24/2024 8:52 PM [facility] Albumin 2.4(L) 3.2 - 5.0 g/dL LAB CHEMISTRY METHOD 11/24/2024 8:52 PM [facility] Total Bilirubin 0.9 0.0 - 1.4 mg/dL LAB CHEMISTRY METHOD 11/24/2024 8:52 PM [facility] Blood Venous blood specimen / Unknown Venipuncture / Unknown 11/24/2024 8:01 PM EST 11/24/2024 8:11 PM EST us Rigo Genao MD LAB BLOOD ORDERABLES Final Result [facility] [address] [place] [address], * Lipid panel with reflex to direct LDL (10/13/2024 5:24 AM EST) Cholesterol 125 0 - 200 mg/dL LAB CHEMISTRY METHOD 10/13/2024 6:43 AM [facility] Triglycerides 66 0 - 150 mg/dL LAB CHEMISTRY METHOD 10/13/2024 6:43 AM [facility] HDL 48 >=40 mg/dL LAB CHEMISTRY METHOD 10/13/2024 6:43 AM [facility] LDL Calculated 64 0 - 100 mg/dL LAB CHEMISTRY METHOD 10/13/2024 6:43 AM [facility] VLDL Cholesterol Luke 13.2 mg/dL LAB CHEMISTRY METHOD 10/13/2024 6:43 AM [facility] Non HDL Chol. (LDL+VLDL) 77 <145 mg/dL LAB CHEMISTRY METHOD 10/13/2024 6:43 AM [facility] Chol/HDL Ratio 2.6 0.0 - 4.4 LAB CHEMISTRY METHOD 10/13/2024 6:43 AM [facility] Blood Venous blood specimen / Unknown Venipuncture / Unknown 10/13/2024 5:24 AM EST 10/13/2024 6:07 AM EST Salena RODRIGUEZ LAB BLOOD ORDERABLES Fi nal Result [facility] [address] [place] [address], from Last 3 Months or Most Recently Relevant to Health Maintenance Insurance MEDICAID - [place] Advance Directives Documents on File Type Date Recorded Patient Armhole Presser Expl anation Health Care Decision (hx) 12/28/2023 [...] DIRECTIVE Health Care Decision (hx) 12/14/2020 AD BRANTELY DIRECTIVE Health Care Decision (hx) 12/14/2020 AD [...] currently active code status orders. Care Teams Power Lineman Technician Relationship Specialty Start Date End Date Yash Arredondo NP [address] [place] [address] PCP - General 09/15/13
--- OUTSIDE RECORDS SUMMARY | 2025-08-03 18:28 | XMS_ITS | Data Portability ---
Author Organization [facility], Main Office Address [address] [facility] , [address] [place] [address] Care Team Providers Care Strategy Lead Name Role Phone HYACINTH TAYLOR - 2ND FLOOR OTHER Assessment No assessment recorded. Plan of Treatment Reminders Order Date Submit Date Provider Last Modified By Organization Details Last Modified Time Details Appointments None record ed. Lab None record ed. Referral None record ed. Procedures None record ed. Surgeries None record ed. Imaging None record ed. Medication Orders None record ed. Patient TargetsNo targets recorded. Patient InstructionsNo instructions recorded. Reason for Referral None Reported. Problems Name Problem SNOMED Code Status Onset Date Resolution Date Notes Provider Name and Address Organization Details Recorded Time Asthenia 45818629 Active 2024 LAVERNE HARRELL NP [address] [facility], [address], [place], [address], [facility] 5 14:05:42 Acute kidney injury 74610108 Active 2024 LAVERNE HARRELL NP [address] [facility], [address], [place], [address], [facility] 5 14:09:14 Chronic hyponatremia 71607170 Active 2024 LAVERNE HARRELL NP [address] [facility], [address], [place], [address], [facility] 5 14:09:15 Chronic hyperkalemia 16023496 Active 2024 LAVERNE HARRELL NP [address] [facility], [address], [place], [address], [facility] 5 14:09:18 Cirrhosis of liver 68053361 Active 2024 LAVERNE HARRELL NP [address] [facility], [address], [place], [address], [facility] 5 14:09:19 Hepatic encephalopathy 32459438 Active 2024 LAVENRE HARRELL NP [address] [facility], [address], [place], [address], [facility] 5 14:09:20 Renal disorder due to type 2 diabetes mellitus 004919167 Active 2024 LAVERNE HARRELL NP [address] [facility], [address], [place], [address], [facility] 5 14:09:21 Chronic anemia 287278676 Active 2024 LAVERNE HARRELL NP [address] [facility], [address], [place], [address], [facility] 5 14:09:23 Thrombocytopen ic disorder 601275742 Active 2024 LAVERNE HARRELL NP [address] [facility], [address], [place], [address], [facility] 5 14:09:25 Pancytopenia 418803491 Active 2024 LAVERNE HARRELL NP [address] [facility], [facility] [address], [place], [address], [facility] 5 14:11:13 Problem Notes None recorded. Medical Equipment None Reported. Allergies Allergen ID Allergen Name Allergen Category Reaction Reaction Severity Criticality Documentation Date Start Date Code Code System Note Provider Name and Address Organization Details Recorded Time 96582 Product containin g penicilli n (product) medicatio n Not available Not available Not available 03/18/2025 78327 8001 SNOMED LAVERNE HARRELL NP [address] [facility], [address], [place], [address], [facility] 5 13:49:11 Medications Not known to be on any medication Vitals Date Recorded Body height Heart rate Oxygen saturation Oxygen saturation in Arterial blood by Pulse oximetry Systolic And Diastolic Provider Name and Address Organization Details Last Updated DateTime 5 45.72 cm 79 /min 100 % 100 % 121/68 mm[Hg] Mallorie Watson NP [address] [facility], [address], [place], [address], [email or web address] 5 09:03:16 Date Recorded Body height Systolic And Diastolic Provider Name and Address Organization Details Last Updated DateTime 04/19/2025 45.72 cm 112/70 mm[Hg] Tono Nicole MD [address] [facility], [address], [place], [address], [email or web address] 04/19/2025 15:39:34 Date Recorded Body height Body mass index (BMI) Body weight Heart rate Respiratory rate Body temperature Oxygen saturation Oxygen saturation in Arterial blood by Pulse oximetry Systolic And Diastolic Provider Name and Address Organization Details Last Updated DateTime 5 167.64 cm 31 kg/m2 21921.7 4 g 80 /min 16 /min 97.5 [degF] 99 % 99 % 108/62 mm[Hg] Mallorie Watson NP [address] [facility], [facility] [address], [place], [address], [email or web address] 5 08:43:56 Date Recorded Body height Body mass index (BMI) Body weight Heart rate Respiratory rate Body temperature Oxygen saturation Oxygen saturation in Arterial blood by Pulse oximetry Systolic And Diastolic Provider Name and Address Organization Details Last Updated DateTime 5 167.64 cm 29.4 kg/m2 22148.8 1 g 80 /min 18 /min 98 [degF] 95 % 95 % 130/77 mm[Hg] Mallorie Watson NP [address] [facility], [facility] [address], [place], [address], [email or web address] 5 19:56:45 Social History Question Answer Notes LastModified by Organizat ion Details LastModified Time Tobacco Smoking Status Never Smoker LAVERNE HARRELL NP [address] [facility], [facility] [address], [place], [address], [email or web address] 03/18/2025 13:51:26 What Is Your Code Status? Full Code Information not available 03/18/2025 Do You Have A Medical Power Of Site Supervising Technical Operator? Yes Has HCP Information not available 03/18/2025 What Was The Date Of Your Most Recent Tobacco Screening? 04/02/2025 [email or web address] Information not available 04/02/2025 Has Tobacco Cessation Counseling Been Provided? No [email or web address] Information not available 03/18/2025 Sex: Unknown Functional Status Question Answer Note LastModified by Organizat ion Details LastModified Time Do you use any illicit or recreational drugs? No Information not available 03/18/2025 Do you or have you ever used any other forms of tobacco or nicotine? No Information not available 03/18/2025 What is your level of alcohol consumption? None distant hx. [email or web address] Information not available 03/18/2025 Mental Status None recorded. Family History Relationship Description Onset Age of this Age Resolved Age Notes LastModified by Organization Details LastModified Time Father Malignant neoplasm of liver [email or web address] Not available 2024 13:50:48 Medical History No medical history recorded. Gynecological HistoryNo gynecological history recorded. Obstetrics History GPAL:G 0 P 0 0 0 0 Past Encounters Encounter ID Performer Location Encounter Start Date Encounter Closed Date Diagnosis/Indication Diagnosis SNOMED-CT Code Diagnosis ICD10 Code Diagnosis IMO Codes Diagnosis Note [id number] LAVERNE HARRELL NP [address] [address] 03/18/2025 13:48:33 03/30/2025 09:41:21 Asthenia 17745077 R53.1 43772 Deconditio justyna due to acute illness and hospitaliz ation.PT OT eval and tx.Goal is to return home. Acute kidney injury 1466 9001 N17.9 952823 Followed by Renal inpt., responded well to fluids and holding diuretics. Monitor PT SKILLED q wed.Avoid nephrotoxi cs Chronic hyponatremia 503 48043 E87.1 9775 Meds adjusted in hosp. with improvemen t in levels.Cur rently 129.Contin ue 1.5 L/d FRCMP q wed. x 3Consult renal prn Chronic hyperkalemia 407 44413 E87.5 9813 Meds adjusted in hosp. with improvemen t in levels.Cur rently 4.7CMP q wed.Consul t Renal prn Cirrhosis of liver 59059 007 K74.60 R18.8 [id number] Currently on:Lasix 60 mg qdLactulos e 30 ml/20gm tid - goal 3 soft stools dailyRifax imin 550 mg bidNow on levaquin 250 mg qd for SBP proph., Bactrim stopped due to renal issues.Off aldactone - stopped in hosp.VS and weights dailyCMP, NH3 q wed.Refer to GI prn Hepatic encephalopathy 08393981 K76.82 0194371 Improved in hosp.Maria Teresa nue:Lactul ose 30 ml/20 gm tid - goal 3 soft stools dailyRifax imin 550 mg bidCMP, NH3 q wed. Renal diso rder due to type 2 diabetes mellitus 405242895 E11.29 Z79.4 24843388 Continue:T resiba 58 U qdLispro SSICarb Control diet Schizoaffe ctive disorder 32566236 F25.9 73732625 Continue:B enztropine 0.5 mg q hsHaldol 10 mg bidMelaton in 3 mg q hs prnCurrent ly off lamictal due to renal issuesRefe r to Psych prnMonitor mood, behaviors. Pancytopenia 455701582 D 61.818 05264 2.06/28/26Co ntinue Ferrous Gluc. 240 mg qdBaseline platelets very low - 27CBC q wed.Monito r bleedingTr ansfuse prn [id number] Tono Nicole MD [address] [address] 03/20/2025 13:21:53 03/24/2025 10:07:22 Asthenia 97945118 R53.1 16211 PT OT Eval and treatmonit or fall risk and need for increased support in community Acute kidney injury 1466 9001 N17.9 427990 improved with IVF and holding diuretics since restartedm onitor renal function Chronic hyponatremia 503 48068 E87.1 9775 appears multifacto rial with recurring ascitesmon itor lytesno longer on spironolac tone Chronic hyperkalemia 407 29168 E87.5 9813 see above Cirrhosis of liver 56834 007 K74.60 R18.8 923093414 see HPI and aboverequi red paracentes is with > 3 liters removedcon tinued on lasixno longer on spironolac tonemonito r for increasing ascites Hepatic encephalopathy 06559254 K76.82 2702813 known underlying NASHmainta ined onlactulos e and rifaximinm onitor level of insightcoo rdinate with GIunsure of baseline however is confused with poor insightinv delmer HCPcontinu e supportive care Renal diso rder due to type 2 diabetes mellitus 236001926 E11.29 Z79.4 74635103 hyperglyce charly in hospital now ontresiba and SS insulinmon itor need to adjust Pancytopenia 222979215 D 61.818 69578 see above with baseline NASHmonito r plt levelcoord inate with heme as needed Chronic schizoaffective schizophrenia 269840324 F25.9 695545 maintained onHaldol 10 mg bidcogenti n 0.5 mg qhsmonitor presentati onupdate psych with concerns Impaired cognition 08988 6002 R41.89 532341 see aboveinvok e HCP [id number] Mallorie Watson, KJ [address] [address] 03/26/2025 09:09:47 03/30/2025 10:58:43 Asthenia 86525516 R53.1 41925 generalize d deconditio gumaro due to acute illness and hospitaliz ation.cont PT OT eval and tx.support maria antonia Loaiza is to return home. Acute kidney injury 1466 9001 N17.9 100640 improving as aboveFollo wed by Renal inpt., responded well to fluids and holding diuretics. Monitor PT SKILLED q wed.Avoid nephrotoxi cs Chronic hyponatremia 503 22476 E87.1 9775 Meds adjusted in hosp. with improvemen t in levels. much improved as aboveConti nue 1.5 L/d FRCMP q wed. x 3Consult renal prn Chronic hyperkalemia 407 02700 E87.5 9813 Meds adjusted in hosp. with improvemen t in levels, see aboveCMP q wed.Consul t Renal prn Cirrhosis of liver 007 K74.60 R18.8 253804207 Currently on:Lasix 60 mg qdLactulos e 30 ml/20gm tid - goal 3 soft stools dailyRifax imin 550 mg bidlevaqui n 250 mg qd for SBP proph., (Bactrim stopped due to renal issues.)Of f aldactone - stopped in hosp.VS and weights daily, stableCMP, NH3 q wed.Refer to GI prnof note: ammonia levels note able to be obtained here Hepatic encephalopathy 70103574 K76.82 [id number] Improved in hosp.Maria Teresa nue:Lactul ose 30 ml/20 gm tid - goal 3 soft stools dailyRifax imin 550 mg bidCMP, NH3 q wed. Renal diso rder due to type 2 diabetes mellitus 928381808 E11.29 Z79.4 08660822 BS controlled 100-2002Co ntinue:Eulalio siba 58 U qdLispro SSICarb Control diet Schizoaffe ctive disorder 62295703 F25.9 41310909 Continue:B enztropine 0.5 mg q hsHaldol 10 mg bidMelaton in 3 mg q hs prnCurrent ly off lamictal due to renal issuesRefe r to Psych prnMonitor mood, behaviors. Pancytopenia 376453318 D 61.818 10383 2.06/28/26Co ntinueFerr ous Gluc. 240 mg qdBaseline platelets very low - 19CBC q wed.Monito r bleedingTr ansfuse prnnot on ac, likely due to liver cirrhosis Impaired cognition 35669 6002 R41.89 462031 see aboveinvok e HCPpleasan tly confused Chronic schizoaffective schizophrenia 968360334 F25.9 132842 maintained onHaldol 10 mg bidcogenti n 0.5 mg qhsupdate psych with concerns [id number] [facility] [address] 03/29/2025 08:40:33 04/06/2025 09:51:47 Cirrhosis of liver 80839058 K74.60 R18.8 [id number] send to ER for abd pain/diste ntion/ possible paracentes isshe is not able to hold down fluids/irma d over weekend Pancytopenia 026702756 D 61.818 89301 2.06/28/26 on admit, see above, trending lowplatele tssend to ER for evaluation of abd pain/diste ntion Renal diso rder due to type 2 diabetes mellitus 629192964 E11.29 Z79.4 47481963 BS controlled low this am at 75,not eating well and vomiting, likely due to abd distention initially decreased Tresiba from 58 U qd to 50 unitsLispr o SSICarb Control diet, send to ER for eval now that she is vomiting Abdominal pain 78074762 R10.9 R11.10 R19.7 66157691 having abd pain, vomiting, nausea and abd distention with plat count of 19 last week, hx of cirrhosis and paracentes is last weeksend to er for eval [id number] Mallorie Watson NP [address] [address] 04/02/2025 08:07:07 04/06/2025 13:29:29 Abdominal pain 45971489 R10.9 R11.10 R19.7 07431203 resolved in hospworkup in hosp ruled out additional causes, likely due to ascites and liver cirrhosish ad paracentes is on 03/30 with 700 cc taken outadd zofran 4 mg po q 6 hours prn vomitingmo nitor weights, ability to eat/drink, and if another paracentes is may be neededmeas ure abd girth 3x/week and place in [facility] at [facility], notify Cirrhosis of liver 007 K74.60 R18.8 319114753 see hpiworkup in hosp ruled out additional causes, likely due to ascites and liver cirrhosish ad paracentes is on 03/30 with 700 cc taken outa workup for additional SBP(sponta neous bacterial peritoniti s) done and ruled out in hospital addzofran 4 mg po q 6 hours prn vomitinglo w sodium 2 gram dietdaily weightsFR 34284/ dayabd girth M W F, notify provider if greater than 3 cm. Cedrick umbilicous for consistent measuremen tmonitor for need to repeat tapcbc and bmp weekly indefinite ly Renal diso rder due to type 2 diabetes mellitus 504302435 E11.29 Z79.4 47282091 BS controlled in hospital 100s-200s per reportTres iba 58 U sc qd, monitor for need to decrease is eating lessLispro SSICarb Control low sodium dietmonito r need Pancytopenia 089476971 D 61.818 49133 continues with pancytopen ia as above likely related to cirrhosis and splenomega ly (severe splenomega ly up to 16.[address])monitor cbc weekly and for s/s of bleeding Hepatic encephalopathy 56321829 K76.82 6318665 Improved in hosp.Maria Teresa nue:Lactul ose 30 ml/20 gm tid - goal 3 soft stools dailyRifax imin 550 mg bidCMP, NH3 q wed. Asthenia 27581856 R53.1 05443 generalize d deconditio gumaro due to acute illness and hospitaliz ation.pt ot eval and treatconts upportive careGoal is to return home. Acute kidney injury 1466 9001 N17.9 214707 improving as aboveFollo wed by Renal inpt., responded well to fluids and holding diuretics. Monitor PT SKILLED q wed.Avoid nephrotoxi cs Chronic hyponatremia 503 06467 E87.1 9775 Meds adjusted in hosp. with improvemen t in levels. much improved as abovehosp rec low sodium diet for ascites, however with hyponatrem ia will cont regular carb consistent dietContin ue 1.5 L/d FRCMP q wed. x 3Consult renal prn Schizoaffe ctive disorder 48417476 F25.9 84903321 Cont:Benzt ropine 0.5 mg q hsHaldol 10 mg bidMelaton in 3 mg q hs prnCurrent ly off lamictal due to renal issuesRefe r to Psych prnMonitor mood, behaviors. Impaired cognition 88839 6002 R41.89 654656 see aboveinvok e HCPpleasan tly confused Chronic schizoaffective schizophrenia 600351196 F25.9 944950 maintained onHaldol 10 mg bidbenztro pine 0.5 mg qhsupdate psych with concerns [id number] Mallorie Watson NP [address] [address] 04/07/2025 12:08:38 04/14/2025 20:54:37 Cirrhosis of liver 39150438 K74.60 R18.8 911686412 see hpiworkup in hosp ruled out additional causes, likely due to ascites and liver cirrhosish ad paracentes is on 03/30 with 700 cc taken outa workup for additional SBP(sponta neous bacterial peritoniti s) done and ruled out in hospitalzo pricilla 4 mg po q 6 hours prn vomitinglo w sodium 2 gram dietdaily weightsFR 91976/ dayabd girth M W F, notify provider if greater than 3 cm. Cedrick umbilicous for consistent measuremen t. 04/17 =48inchesm onitor for need to repeat tapcbc and bmp weekly indefinite ly Renal diso rder due to type 2 diabetes mellitus 881993259 E11.29 Z79.4 94483626 BS controlled in hospital 100s-200s per reportTres iba 58 U sc qd, monitor for need to decrease is eating lessLispro SSICarb Control low sodium dietmonito r need Pancytopenia 675986520 D 61.818 22775 continues with pancytopen ia as above likely related to cirrhosis and splenomega ly (severe splenomega ly up to 16.[address])monitor cbc weekly and for s/s of bleeding Hepatic encephalopathy 26621073 K76.82 4004031 Improved in hosp.Maria Teresa nue:Lactul ose 30 ml/20 gm tid - goal 3 soft stools dailyRifax imin 550 mg bidCMP, NH3 q wed. Asthenia 74661798 R53.1 79814 generalize d deconditio gumaro due to acute illness and hospitaliz ation.pt ot eval and treatconts upportive careGoal is to return home. Acute kidney injury 1466 9001 N17.9 108437 improving as aboveFollo wed by Renal inpt., responded well to fluids and holding diuretics. Monitor PT SKILLED q wed.Avoid nephrotoxi cs Chronic hyponatremia 503 46710 E87.1 9775 Meds adjusted in hosp. with improvemen t in levels. much improved as abovehosp rec low sodium diet for ascites, however with hyponatrem ia will cont regular carb consistent dietContin ue 1.5 L/d FRCMP q wed. x 3Consult renal prn Schizoaffe ctive disorder 82605932 F25.9 23037170 Cont:Benzt ropine 0.5 mg q hsHaldol 10 mg bidMelaton in 3 mg q hs prnCurrent ly off lamictal due to renal issuesRefe r to Psych prnMonitor mood, behaviors. Impaired cognition 75740 6002 R41.89 554599 see aboveinvok e HCPpleasan tly confused Chronic schizoaffective schizophrenia 977307345 F25.9 844754 maintained onHaldol 10 mg bidbenztro pine 0.5 mg qhsupdate psych with concerns [id number] Mallorie Watson NP [address] [address] 04/14/2025 08:31:58 04/15/2025 10:48:26 Cirrhosis of liver K74.60 R18.8 948462799 see hpiworkup in hosp ruled out additional causes, likely due to ascites and liver cirrhosish ad paracentes is on 03/30 with 700 cc taken outa workup for additional SBP(sponta neous bacterial peritoniti s) done and ruled out in hospital during admissionz ofran 4 mg po q 6 hours prn vomitinglo w sodium 2 gram dietdaily weightsFR 1500/ dayabd girth M W F, notify provider if greater than 3 cm. Cedrick umbilicus for consistent measuremen t.monitor for need to repeat tap04/14 paracentes is in next few days and fu with GI outpt with resultsmon tior for need to to restart diuretics, were held for AKIcbc and bmp weekly indefinite ly in wednesdays Renal diso rder due to type 2 diabetes mellitus 218957682 E11.29 Z79.4 00154521 BS controlled in hospital 100s-200s per reportTres iba 58 U sc qd, monitor for need to decrease is eating less(tresi ba not avail today and may use lantus until tonight when avail)Lisp ro SSICarb Control low sodium dietmonito r need Pancytopenia 984949360 D 61.818 59749 continues with pancytopen ia as above likely related to cirrhosis and splenomega ly (severe splenomega ly up to 16.[address])monitor cbc weekly and for s/s of bleeding Hepatic encephalopathy 79378123 K76.82 8741691 Improved in hosp.Maria Teresa nue:Lactul ose 30 ml/20 gm tid - goal 3 soft stools dailyRifax imin 550 mg bidCMP, NH3 q wed. Asthenia 54595604 R53.1 81478 generalize d deconditio gumaro due to acute illness and hospitaliz ation.pt ot eval and treatconts upportive careGoal is to return home. Acute kidney injury 1466 9001 N17.9 638771 contFollow ed by Renal inpt., responded well to fluids and holding diuretics. montior for need to to restart dureticsMo nitor CMP q wed.Avoid nephrotoxi cs Chronic hyponatremia 503 20687 E87.1 9775 Meds adjusted in hosp. with improvemen t in levels. much improved as abovehosp rec low sodium diet for ascites, however with hyponatrem ia will cont regular carb consistent dietContin ue 1.5 L/d FRCMP q wed. x 3Consult renal prn Schizoaffe ctive disorder 45848992 F25.9 16837354 Cont:Benzt ropine 0.5 mg q hsHaldol 10 mg bidMelaton in 3 mg q hs prnCurrent ly off lamictal due to renal issuesRefe r to Psych prnMonitor mood, behaviors. Impaired cognition 44564 6002 R41.89 165395 see aboveinvok e HCPpleasan tly confused Chronic schizoaffective schizophrenia 830505842 F25.9 767113 maintained onHaldol 10 mg bidbenztro pine 0.5 mg qhsupdate psych with concerns Chest pain 27395745 R07. 9 91053022 pt with cp [facility] ER visit with unremarkab le workup for cardiacmon itor vitals and cardiac status [id number] Tono Nicole MD [address] [address] 04/19/2025 15:39:01 04/20/2025 11:19:47 Hepatic encephalopathy 55536044 K76.82 8653957 known underlying NASHmainta ined onlactulos e 30 cc tidrifaxim in 550 mg bidcontinu e supportive care Impaired cognition 81528 6002 R41.89 374101 apparent baseline impaired cognition with underlying NASHHCP invokedcon tinue supportive careimpuls maria antonia behaviors is fall risk due to impairment and gait instabilit y Cirrhosis of liver K74.60 R18.8 760745699 see HPIlasix 60 mg qdnon compliant with fluid restrictio n of 1500 cc / daynow with increasing ascitessch edule for paracentes isto ED if increasing SOB [id number] Mallorie Watson NP [address] [place] [address] 04/26/2025 12:25:19 04/27/2025 12:12:43 Abdominal pain 07821467 R10.9 R11.10 R19.7 [id number] Plan: fu with GI and monitor ascites. She saw GI today on 04/26 and rec:- paracentes is-cont lasix-add spirolacto ne 50 mg po qd-cbc and cmp in 1 week-fu in 6 weeks A U/S of abd was done on 04/22 and showed Right upper quadrant ascites, and liver contour consistent with cirrhosis. Splenomega ly. Results sent to GI today.work up in hosp ruled out additional causes, likely due to ascites and liver cirrhosis had last paracentes is on 03/30 with 700 cc taken out, nsg rescheduli ngcont zofran 4 mg po q 6 hours prn vomitingmo nitor weights, ability to eat/drink, and if another paracentes is may be neededmeas ure abd girth 3x/week and place in p[facility] at umbilicus, notify Cirrhosis of liver K74.60 R18.8 549505191 see hpiworkup in hosp ruled out additional causes, likely due to ascites and liver cirrhosish ad paracentes is on 03/30 with 700 cc taken outa workup for additional SBP(sponta neous bacterial peritoniti s) done and ruled out in hospitalpt will likely need palliative paracentes iscontzofr an 4 mg po q 6 hours prn vomitinglo w sodium 2 gram dietdaily weights with notable weight gain latelyFR 1500cc/ dayabd girth M W F, notify provider if greater than 3 cm. Cedrick umbilicous for consistent measuremen tmonitor for need to repeat tapcbc and bmp weekly indefinite ly Renal diso rder due to type 2 diabetes mellitus 222756126 E11.29 Z79.4 01791155 BS controlled 100s-200sT resiba 58 U sc qd, monitor for need to decrease is eating lessLispro SSICarb Control low sodium dietmonito r need Pancytopenia 818092219 D 61.818 21375 continues with pancytopen ia as above likely related to cirrhosis and splenomega ly (severe splenomega ly up to 16.[address])monitor cbc weekly 'monitor s/s of bleeding Hepatic encephalopathy 92320662 K76.82 5917972 resolvingC ont:Lactul ose 30 ml/20 gm tid - goal 3 soft stools dailyRifax imin 550 mg bidCMP, NH3 q wed. Asthenia 47430754 R53.1 07352 generalize d deconditio gumaro due to acute illness and hospitaliz ation.pt ot eval and treat, she continues to work with [employer] ortive careGoal is to return home. Acute kidney injury 1466 9001 N17.9 440379 improving as aboveFollo wed by Renal inpt., responded well to fluids and holding diuretics. Monitor PT SKILLED q wed.Avoid nephrotoxi cs Chronic hyponatremia 503 23800 E87.1 9775 Meds adjusted in hosp. with improvemen t in levels. much improved as abovehosp rec low sodium diet for ascites, however with hyponatrem ia will cont regular carb consistent dietCont1. 5 L/d FRCMP q wed. x 3Consult renal prn Schizoaffe ctive disorder [id number] F25.9 51253396 Cont:Benzt ropine 0.5 mg q hsHaldol 10 mg bidMelaton in 3 mg q hs prnCurrent ly off lamictal due to renal issuesRefe r to Psych prnMonitor mood, behaviors. Impaired cognition 88686 6002 R41.89 791267 see aboveinvok e HCPpleasan tly confused Chronic schizoaffective schizophrenia 634040859 F25.9 149131 maintained onHaldol 10 mg bid, consider decreasing if lethargicb enztropine 0.5 mg qhsupdate psych with concerns [id number] Mallorie Watson NP [address] [address] 05/07/2025 08:23:15 05/13/2025 13:33:58 Abdominal pain [id number] R10.9 R11.10 R19.7 [id number] fu with GI and monitor ascites.GI rec on 04/26:- paracentes is-cont lasix-add spirolacto ne 50 mg po qd-cbc and cmp in 1 week-fu in 6 weeks A U/S of abd was done on 04/22 and showed Right upper quadrant ascites, and liver contour consistent with cirrhosis. Splenomega ly. Results sent to GI today.work up in hosp ruled out additional causes, likely due to ascites and liver cirrhosis had last paracentes is on 03/30 with 700 cc taken out, nsg rescheduli ngcont zofran 4 mg po q 6 hours prn vomitingmo nitor weights, ability to eat/drink, measure abd girth 3x/week and place in pcc at umbilicus, notify provider if greqter than 3 cm change between measuremen ts *next paracentes is on 05/14 scheduled at [facility] need them scheduled frequently Cirrhosis of liver 04297 007 K74.60 R18.8 [id number] workup in hosp ruled out additional causes, likely due to ascites and liver cirrhosish ad paracentes is on 03/30 with 700 cc taken outa workup for additional SBP(sponta neous bacterial peritoniti s) done and ruled out in hospitalne eds palliative paracentes iscontzofr an 4 mg po q 6 hours prn vomitinglo w sodium 2 gram dietdaily weights with notable weight gain latelyFR 1500cc/ dayspirola ctone 50 mg po qdabd girth M W F, notify provider if greater than 3 cm. Cedrick umbilicus for consistent measuremen tmonitor for need to repeat tapcbc and bmp weekly indefinite lyunable to get ammonia levels here, consider ER for increased confusion etc.... Renal diso rder due to type 2 diabetes mellitus 240230972 E11.29 Z79.4 12931870 BS controlled 100s-200s, occ 300s (of note has hx of low BS at times)cont Tresiba 58 U sc qd, monitor for need to decrease is eating lessLispro SSICarb Control low sodium dietmonito r need Pancytopenia 822299861 D 61.818 42518 continues with pancytopen ia as above likely related to cirrhosis and splenomega ly (severe splenomega ly up to 16.[address])monitor cbc weekly, of note h/h trending downmonito r for need to transfuse <7monitor s/s of bleeding Hepatic encephalopathy 82377046 K76.82 5157040 overall confusion remains butCont:La ctulose 30 ml/20 gm tid - goal 3 soft stools dailycontR ifaximin 550 mg bidCMP, NH3 q wed. Asthenia 15612961 R53.1 80602 generalize d deconditio gumaro due to acute illness and hospitaliz ation.pt ot eval and treat, she continues to work with [employer] orCardiocoreoal is to return home. Acute kidney injury 1466 9001 N17.9 031524 improving as aboveFollo wed by Renal inpt., responded well to fluids and holding diuretics. Monitor PT SKILLED q wed.Avoid nephrotoxi cs Chronic hyponatremia 503 39968 E87.1 9775 Meds adjusted in hosp. with improvemen t in levels. much improved as abovehosp rec low sodium diet for ascites, however with hyponatrem ia will cont regular carb consistent dietCont1. 5 L/d FRCMP q wed. x 3Consult renal prn Schizoaffe ctive disorder 87089026 F25.9 45924715 Cont:Benzt ropine 0.5 mg q hsHaldol 10 mg bidMelaton in 3 mg q hs prnCurrent ly off lamictal due to renal issuesRefe r to Psych prnMonitor mood, behaviors. Impaired cognition 76838 6002 R41.89 492146 see aboveinvok e HCPpleasan tly confused Chronic schizoaffective schizophrenia 356983997 F25.9 413155 maintained onHaldol 10 mg bid, consider decreasing if lethargicb enztropine 0.5 mg qhsupdate psych with concerns [id number] Mallorie Watson NP [address] [address] 05/17/2025 13:26:31 05/18/2025 11:06:16 Cirrhosis of liver 00315487 K74.60 R18.8 [id number] workup in hosp ruled out additional causes, likely due to ascites and liver cirrhosisa workup for additional SBP(sponta neous bacterial peritoniti s) done and ruled out in hospitalha d paracentes is on 03/30 with 700 cc taken outparacen tesis on 05/14 removed >4000 ccneeds palliative paracentes is kathia 2-3 weeks with increased volume and noncomplia nce with fluid restrictio contzofran 4 mg po q 6 hours prn vomitinglo w sodium 2 gram dietdaily weights with notable weight gain latelyFR 1500cc/ dayspirola ctone 50 mg po qdabd girth M W F, notify provider if greater than 3 cm. Cedrick umbilicus for consistent measuremen tmonitor for need to repeat tapcbc and bmp weekly indefinite lyunable to get ammonia levels here, consider ER for increased confusion etc.... Renal diso rder due to type 2 diabetes mellitus 306370403 E11.29 Z79.4 45412356 BS controlled 100s-200s, occ 300s (of note has hx of low BS at times)cont Tresiba 58 U sc qd, monitor for need to decrease is eating lessLispro SSICarb Control low sodium dietmonito r need Pancytopenia 610705253 D 61.818 85836 platets remains stable low, no s/s of bleedingco ntinues with pancytopen ia as above likely related to cirrhosis and splenomega ly (severe splenomega ly up to 16.[address])monitor cbc weekly, of note h/h trending downmonito r for need to transfuse <7monitor s/s of bleeding Hepatic encephalopathy 72333749 K76.82 3520954 overall confusion remains butCont:sp ironolacto ne 50mg po qdLactulos e 30 ml/20 gm tid - goal 3 soft stools dailyRifax imin 550 mg bidCMP, NH3 q wed. Asthenia 67328441 R53.1 52461 generalize d deconditio gumaro due to acute illness and hospitaliz ation.pt ot eval and treat, she continues to work with otcontsupp ortive careGoal is to return home. Acute kidney injury 1466 9001 N17.9 193737 currently on lasixcontM onitor CMP q wed.Avoid nephrotoxi cs Chronic hyponatremia 503 34401 E87.1 9775 Meds adjusted in hosp. with improvemen t in levels. much improved as abovehosp rec low sodium diet for ascites, however with hyponatrem ia will cont regular carb consistent dietCont1. 5 L/d FRCMP q wed. x 3Consult renal prn Schizoaffe ctive disorder 39850022 F25.9 42959660 Cont:Benzt ropine 0.5 mg q hsHaldol 10 mg bidMelaton in 3 mg q hs prnCurrent ly off lamictal due to renal issuesRefe r to Psych prnMonitor mood, behaviors. Impaired cognition 22669 6002 R41.89 987157 see aboveinvok e HCPpleasan tly confused Chronic schizoaffective schizophrenia 080385001 F25.9 598089 mood pleasantco ntHaldol 10 mg bid, consider decreasing if lethargicb enztropine 0.5 mg qhsupdate psych with concerns Health Concerns Section Related Observation LastModified by Organization Detai ls LastModified Time None Recorded Concern Status LastModified by Organization Details LastModified Time None Recorded Advance Directives Directive None Recorded Payers Insurance Date Sequence Insurance Name Policy Number Policy Crowley Covered Member ID Crowlye Member ID Guarantor Name 04/26/2025 1 [place] [facility] Catherine [facility] [id number] Catherine Petersons 03/22/2025 1 [facility] (PPO) Catherine Stern [id number] Catherine Petersons 03/22/2025 1 [place] [facility] Catherine Petersons [id number] Catherine Petersons Notes Date Note Type Note Provider Name and Address Organization Details Recorded Time 04/14/2025 text/html ROS as noted in the HPI Catherine is seen today for an acute rounding visit. PMH: DM2, obese, schizoaffective d/o, decompensated liver cirrhosis with portal hypertension, ascites, splenomegaly, anemia with hemorrhoidal bleeds, thrombocytopenia, scoliosis, Catherine was sent to the hospital for chest pain on 04/14 and returned later that evening. She was chest pain free when she arrived to the ER.Workup included: ECG showing nonischemic RBBB, trop x2 neg for OR. Valera is was not suggestive of dissection or PE. She was noted to have acute on chronic pancytopenia slightly with platelet count of 19. Ammonia level 47. It was recommended she fu with GI outpt in 3-5 days. Labs not done today, due to labs recently done in ER she will be ok for am. She will have a U/S done here to assess for her ascites and results will be faxed and sent to for her 04/26 at 1145 am. On exam, Catherine is resting in bed. Reports she had a nice breakfast. No vomiting or nausea. Denies any c/p, pain, or sob. She is agreeable to the U/S here and aware she will fu with GI in a few days. She denies any bleeding or s/s of anemia except fatigue at times. of note:Catherine Stern is a 64-year-old female with hx above presented to [facility] due to vomiting and abdominal distention, weight gain, and low platelet count 19.Workup: noted pancytopenia with a white count of 2.8, hemoglobin of 8.6/hematocrit of 26.0 and a platelet count of 21. Patient's INR is elevated at 1.2. Chemistry panel is notable for a BUN of 27 and a creatinine of 0.83. Patient's LFTs were notable for an alkaline phosphatase of 174, AST of 58 and an ALT of 47. CT abdomen and pelvis with IV contrast demonstrated cirrhotic morphology of the liver with evidence of portal hypertension including splenomegaly, varices and small volume ascites. She was admitted because of abdominal pain, and she had a paracentesis on 31 March which showed no evidence of any SBP, there is only 27% neutrophils and only 167 total white cells,, she did not meet criteria for SBP.On 03/31 700cc of abd fluid drained. Since then she was able to eat, drink, and had reduction of abd pain. She was given lactulose rifaximin and there is no evidence of any hepatic encephalopathy, her MELD score and creatinine were stable. YAÑEZ: low fall risk=Full code, has HCP Mallorie Watson, KJ [address], [address], [place], [address], [facility] 04/14/2025 10:58:55 04/19/2025 text/html Patient is a 64 yo female resident seen for acute rounding. Patient was initially admit from hospital after presenting with altered mental status and abd distension. Found to be in ARF with elevated blood glucose. Noted hepatic encephalopathy due to underlying QURESHI. restarted on lasix and aldactone. Required paracentesis with > 3 liters fluid removed at that time. Patient is supposed to utilize walker with assist however baseline cognitive impairment and impulsive behaviors ambulates to bathroom throughout day without assist to drink from sink, non compliant with fluid restriction. Weight has increased from > 10 lbs in past month Tono Nicole MD [address], [address], [place], [address], [facility] [employer] 04/19/2025 15:48:13 04/26/2025 text/html ROS as noted in the HPI Catherine is a 64 yo female, seen for a 30 day routine rounding visit. PMH: DM2, obese, schizoaffective d/o, decompensated liver cirrhosis with portal hypertension, ascites, splenomegaly, anemia with hemorrhoidal bleeds, thrombocytopenia, scoliosis She is a 64 yo lady, admitted to [facility] 03/17/25 from [facility] for continued care and rehab after a brief hosp. due to OLIVIA, encephalopathy. PMH: DM2, obese, schizoaffective d/o, liver cirrhosis, anemia, thrombocytopenia, scoliosis, hemorrhoids She presented to [facility] 03/02/25 due to elevated BS, lethargy, and abdominal distention.She was treated for several issues:Elevated BS - improved with restart of Lantus.OLIVIA/hyponatrem ia/hyperkalemia - followed by renal, meds adjusted multiple times and placed on 1.5 L/d FR with improvement in labs.Hepatic Encephalopathy - known hx.of cirrhosis due to QURESHI, on lasix and aldactone. Restarted these meds (initially held due to OLIVIA) continued lactulose and rifaximin. Theraputic paracentesis done 03/04, drained 3.2 L. Status improved. Repeat US 03/12 showed no drainable ascites. She returned to [facility] because of abdominal pain, and she had a paracentesis on 31 March which showed no evidence of any SBP, there is only 27% neutrophils and only 167 total white cells,, she did not meet criteria for SBP.On 03/31 700cc of abd fluid drained. She was given lactulose rifaximin and there is no evidence of any hepatic encephalopathy, her MELD score and creatinine were stable. She presented to [facility] ER on 04/14 due to vomiting and abdominal distention, weight gain, and low platelet count 19 and sent back to rehab later that night. Workup: noted pancytopenia with a white count of 2.8, hemoglobin of 8.6/hematocrit of 26.0 and a platelet count of 21. Patient's INR is elevated at 1.2. Chemistry panel is notable for a BUN of 27 and a creatinine of 0.83. Patient's LFTs were notable for an alkaline phosphatase of 174, AST of 58 and an ALT of 47. CT abdomen and pelvis with IV contrast demonstrated cirrhotic morphology of the liver with evidence of portal hypertension including splenomegaly, varices and small volume ascites. Plan: fu with GI and monitor ascites. She saw GI today on 04/26 and rec:- paracentesis-cont lasix-add spirolactone 50 mg po qd-cbc and cmp in 1 week-fu in 6 weeks A U/S of abd was done on 04/22 and showed Right upper quadrant ascites, and liver contour consistent with cirrhosis. Splenomegaly. Results sent to GI today. She was seen on 04/19 by psych without any new recommendations. On exam, Catherine has just returned from her appt in [facility]. She is eating, drinking and moving her bowels per staff. She remains with very large abdomen and weight gain at 195 lbs, was 186 lbs last week, and 170 lbs in march. Overall, remains on notable decline. No s/s of bleeding or bruising noted. YAÑEZ: low fall riskFull code, has HCPHCP invoked Mallorie Watson NP [address], [address], [place], [address], [facility] 04/26/2025 23:06:18 05/07/2025 text/html ROS as noted in the HPI Pt is seen for acute rounding visit. PMH: DM2, obese, schizoaffective d/o, decompensated liver cirrhosis with portal hypertension, ascites, splenomegaly, anemia with hemorrhoidal bleeds, thrombocytopenia, scoliosis She is a 64 yo lady, admitted to [facility] 03/17/25 from [facility] for continued care and rehab after a brief hosp. due to OLIVIA, encephalopathy, and ascites. She has required paracentesis last on 03/31.. She followed up with GI and agree she needs a paracentesis. A U/S of abd was done on 04/22 and showed Right upper quadrant ascites, and liver contour consistent with cirrhosis. Splenomegaly. She is approx 192.5 lbs which is about the same since 04/24, however she is up from 170 lbs on 04/04/25 with notable ascites and distension. She is scheduled for a paracentesis on 05/14 at the earliest appt available at [facility]. SHe is aware of the date. Her platelets are low at baseline with her liver disease and splenomegaly. Currently hgb 7.6. No s/s of bleeding. will monitor for need for transfusion. On exam, Pt is lying in bed in NAD. Large distended abd noted. She is eating, drinking and moving her bowels per staff. No s/s of bleeding or bruising noted. She denies any concerns or complaints. YAÑEZ: low fall riskFull code, has HCPHCP invoked Mallorie Watson NP [address], [address], [place], [address], [facility] 05/07/2025 09:09:15 05/17/2025 text/html ROS as noted in the HPI Pt is seen for acute rounding visit. PMH: DM2, obese, schizoaffective d/o, decompensated liver cirrhosis with portal hypertension, ascites, splenomegaly, anemia with hemorrhoidal bleeds, thrombocytopenia, scoliosis She is a 64 yo lady, admitted to [facility] 03/17/25 from [facility] for continued care and rehab after a brief hosp. due to OLIVIA, encephalopathy, and ascites. She has required paracentesis last on 03/31.. She followed up with GI and had then IR and paracentesis done on 05/14 for 4 liters of fluid. On exam, she remains with very large abd. She is noncomplaint with the 1500 cc fluid restriction. Pt is lying in bed in NAD. Large distended abd noted. She is eating, drinking and moving her bowels per staff. No s/s of bleeding or bruising noted. She denies any concerns or complaints. She is alert and states she is feeling good , eating, drinking, and moving bowels well. Denies any nausea, vomiting, lately. VItals stable since back. She has been reweighed and is 182 lbs now, which would show she has lost 14 lbs with the tapped, she was 196lbs.. Will rec getting scheduled for taps q 2-3 weeks with large accumulation of fluid noted. Referral placed to IR. Her platelets are low at baseline with her liver disease and splenomegaly last noted at 25 on 05/13. No s/s of bleeding. will monitor for need for transfusion. PARI: low fall riskFull code, has HCPHCP invoked Mallorie Watson NP [address], [address], [place], [address], [facility] 05/17/2025 20:32:35 OBGyn Episode No OBEpisode recorded.
[2025-08-03 18:48] VITALS: BP 119/50; PULSE 82; RESP 14; TEMP 36.4; O2SAT 100
[2025-08-03 19:09] LABS: Ammonia 62 umol/L (13-55)
[2025-08-03 19:29] LABS: Troponin-I High Sensitivity 4.2 ng/L (<3.5-17.0)
[2025-08-03 21:15] VITALS: BP 141/57; PULSE 81; RESP 20; TEMP 36.5; O2SAT 100
[2025-08-03 23:10] VITALS: BP 141/57; PULSE 81; RESP 20; TEMP 36.5; O2SAT 100
== END 2025-08-04 00:06 ==
PROVIDERS: Physician Assistant Medical; Emergency Provider Emergency Medicine Emergency Medical Services
DX: R07.9 Chest pain, unspecified (principal); E11.9 Type 2 diabetes mellitus without complications; Z79.4 Long term (current) use of insulin; F25.9 Schizoaffective disorder, unspecified; I10 Essential (primary) hypertension; G20.A1 Parkinson's disease without dyskinesia, without mention of fluctuations; Z87.891 Personal history of nicotine dependence; I45.10 Unspecified right bundle-branch block; Z03.818 Encounter for observation for suspected exposure to other biological agents ruled out; K74.60 Unspecified cirrhosis of liver
CPT/HCPCS: 36415; 71046; 80048; 80076; 82140; 83690; 83735; 83880; 84484; 85025; 87502; 87635; 93005; 99283; 99284

== ENCOUNTER → 2025-08-03 16:10 | Outpatient (BNV) | payer MEDICAID, SELFPAY | PROVIDERS: Emergency Provider Emergency Medicine Emergency Medical Services; Visit Provider Radiology Diagnostic Radiology | DX: J90 Pleural effusion, not elsewhere classified (principal) | CPT/HCPCS: 71046 ==

== ENCOUNTER → 2025-08-03 16:10 | Outpatient (BNV) | payer MEDICAID, SELFPAY | PROVIDERS: Emergency Provider Emergency Medicine Emergency Medical Services; Visit Provider Internal Medicine Cardiovascular Disease | DX: I45.10 Unspecified right bundle-branch block (principal) | CPT/HCPCS: 93010 ==

== ENCOUNTER → 2025-08-20 06:59 | Day surgery (SDC) | payer MEDICAID, SELFPAY ==
--- NOTE | 2025-08-19 10:51 | PC.NURSE ---
Spoke with Mallorie Charge nurse of [facility], about arrival time at 700am 08/20, No need to be npo. Mallorie denies any questions/concerns.
--- OUTSIDE RECORDS SUMMARY | 2025-08-19 12:31 | XMS_ITS | Encounter Summary ---
Author Organization [employer] Address [address] [place] [address] Care Team Providers Care Custom Ski Maker Name Role Phone Ana Davis MAIL RIDER Primary Care Provider [phone] Andree Ulloa PharmD Unavailable [phone] Jacquie Sarkar Unavailable Jacquie Sarkar Unavailable Reason for Referral * Consultation (Routine) - Authorized Specialty Diagnoses / Procedures Referred By Ivelisse segura Referred To Contact Pharmacy Diagnoses Type 2 diabetes mellitus without complication, with long-term current use of insulin (HCC) Catalina Mendez MD [address] [place] [address] Phone: tel: fax: Referral ID Status Reason Start Date Expiration Date Visits Requested Visits Authorized [id number] Authorized Consult and Treat 02/23/2025 02/23/2026 6 6 Encounter Details Date Type Department Care Team (Late st Contact Info) Description 02/23/2025 Orders Only [facility] [address] [place], [place] [phone] Catalina Mendez MD [address], [place] [phone] Type 2 diabetes mellitus without complication, with [...] t he electric, gas, oil or water [employer] threatened to shut off services in your [...] Care Team (Late st Contact Info) Description 09/13/2025 2:30 PM EST Medication Management [facility] [address] [place] [id number] Harrison Salazar, PharmD [address] [place] [address] 09/20/2025 10:00 AM EST Office Visit [facility] [address] [place] [phone] [facility] [address] [place] [address] Scheduled Referrals Name Type Priority Associated Diagnoses Orde r Schedule Referral to Pharmacy CDTM Outpatient Referral Routine Type 2 diabetes mellitus without complication, with long-term current use of insulin ([facility]) Ordered: 02/23/2025 documented as of this encounter [...] complication, with long-term current use of insulin ([facility])- Primary documented in this encounter Additional Health Concerns Assessment Noted Time PHQ-9 Depression Total Score: 10 025 1:44 PM EST documented as of this encounter Care Teams Custom Ski Maker Relationship Specialty Start Date End Date [place] [facility] [address] [place] [address] PCP - General Family Medicine 04/05/22 Andree Ulloa PharmD [address] [place] [address] Pharmacist Internal Medicine 05/09/23 Jacquie Sarkar 05/20/25 06/03/25 Jacquie Sarkar 06/10/25 06/15/25 Flavia Segundo [employer] 10/10/23 Gabrielle Fitch [employer] 11/05/24 [employer] 02/06/25 documented as of this encounter
--- OUTSIDE RECORDS SUMMARY | 2025-08-19 12:31 | XMS_ITS | Clinical Summary ---
Author Organization [employer] Address [address] [facility] [address] [place] [address] Care Team Providers Care Real Estate Assistant Name Role Phone Ana Davis PIN INSERTER REGULATOR Primary Care Provider [phone] Andree Ulloa PharmD Unavailable [phone] Allergies Active Allergy Reactions Criticality Noted [...] complication, with long-term current use of insulin ([facility]) Administer 3 mg via 1 device into the nostril for hypoglycemia with loss of consciousness. If no response after 15 minutes administer an additional dose via 2nd device into other nostril. 2 each 1 08/28/20 23 Active Alcohol Swabs (Alcohol Prep) padsIndications :Type 2 diabetes mellitus without complication, with long-term current use of insulin ([facility]) Use one pad each to prep skin prior to injection as directed 100 each 11 02/10/20 24 Active Lancets 33G miscIndications :Type 2 diabetes mellitus without complication, with long-term current use of insulin ([facility]) Use as directed to check blood sugar four times daily 100 each 02/10/20 24 Active Blood Glucose Monitoring Suppl (D-Care Glucometer) w/Device kitIndications: Type 2 diabetes mellitus with hyperglycemia, with long-term current use of insulin (HCC),Cirrhosis of liver with ascites, unspecified hepatic cirrhosis type (HCC) Use as directed to check BS four times daily 1 kit 05/01/20 24 Active traMADol (Ultram) 50 MG tabletIndicatio ns:Closed fracture of multiple ribs, unspecified laterality, initial encounter Take 1 tablet (50 mg) by mouth every 8 (eight) hours if needed for severe pain. 30 tablet 08/31/20 24 Active carvedilol (Coreg) 3.125 MG tabletIndicatio ns:Cirrhosis of liver with ascites, unspecified hepatic cirrhosis type (HCC) Take 1 tablet (3.125 mg) by mouth 2 times daily. 60 tablet 11/19/19 25 026 Active furosemide (Lasix) 40 MG tabletIndicatio ns:Cirrhosis of liver with ascites, unspecified hepatic cirrhosis type (HCC) Take 1 tablet (40 mg) by mouth Once per day. 30 tablet 11/19/19 25 Active lactulose (Chronulac) 10 GM/15ML solutionIndicat ions:Cirrhosis of liver with ascites, unspecified hepatic cirrhosis type (HCC) Take 30 mL (20 g) by mouth 3 times daily. 946 mL 11/19/19 25 Active spironolactone (Aldactone) 50 MG tablet Take 50 mg by mouth Once per day. Active pen needle 32G x 4 mm miscIndications :Type 2 diabetes mellitus without complication, with long-term current use of insulin (HCC) Use as instructed 100 each 02/13/20 25 026 Active Lancets miscIndications :Type 2 diabetes mellitus without complication, with long-term current use of insulin (HCC) Check blood sugar three times daily 150 each 02/13/20 25 Active Alcohol Swabs (Alcohol Prep) padsIndications :Type 2 diabetes mellitus without complication, with long-term current use of insulin (HCC) Use as directed 150 each 1 02/13/20 25 Active insulin lispro (HumaLOG KWIKPEN) 100 UNIT/ML injectionIndica tions:Type 2 diabetes mellitus without complication, with long-term current use of insulin (HCC) Inject 5 Units under the skin with breakfast and with evening meal. 15 mL 02/13/20 Active glucose blood test stripIndication s:Type 2 diabetes mellitus without complication, with long-term current use of insulin ([facility]) Use as directed to check blood sugar three times daily 100 each 12 02/13/20 Active insulin degludec (Tresiba FlexTouch) 200 UNIT/ML injectionIndica tions:Type 2 diabetes mellitus without complication, with long-term current use of insulin ([facility]) INJECT 58 UNITS SUBCUTANEOUSLY EVERY EVENING 9 mL 02/13/20 Active Blood Glucose Monitoring Suppl deviceIndicatio ns:Type 2 diabetes mellitus without complication, with long-term current use of insulin ([facility]) Use as directed to check blood sugar three times daily 1 each 02/13/20 Active sulfamethoxazol e-trimethoprim (Bactrim DS) 800-160 MG tabletIndicatio ns:Cirrhosis of liver with ascites, unspecified hepatic cirrhosis type (HCC) Take 1 tablet by mouth Once per day. 30 tablet 02/13/20 25 Active haloperidol (Haldol) 10 MG tabletIndicatio ns:Schizophreni a, unspecified type (HCC) Take 1 tablet (10 mg) by mouth 2 times daily. 60 tablet 02/13/20 25 Active ferrous gluconate (Fergon) 324 (38 Fe) MG tabletIndicatio ns:Anemia, unspecified type Take 1 tablet (324 mg) by mouth with breakfast. 30 tablet 02/13/20 026 Active benztropine (Cogentin) 0.5 MG tabletIndicatio ns:Schizophreni a, unspecified type (HCC) Take 1 tablet (0.5 mg) by mouth at bedtime. 30 tablet 02/13/20 25 Active lamoTRIgine (LaMICtal) 25 MG tabletIndicatio ns:Schizophreni a, unspecified type (HCC) Take 2 tablets (50 mg) by mouth at bedtime. 60 tablet 02/13/20 25 Active lurasidone (Latuda) 80 MG tabletIndicatio ns:Schizophreni a, unspecified type (HCC) Take 1 tablet (80 mg) by mouth in the evening. 30 tablet 02/13/20 Active Active Problems Problem Noted Date Diagnosed Date Chronic kidney disease 06/15/2024 Gait instability 03/10/2023 Overview (03/10/2023): Referred to PT 11/2022 for gait assistance evaluation Internal carotid artery stenosis, bilateral 02/19 Hyponatremia 03/10/2023 Healthcare maintenance 12/03/2022 Overview (03/10/2023): Mammo: Ordered 11/2022 Pap: Unknown. Referred to [facility] 11/2022 for PMB. Ultrasound pending C-scope: 2019, precancerous polyps Cirrhosis of liver (CMS/HCC) 04/21/2018 Overview (09/09/2023): Decompensated QURESHI cirrhosis MELD-Na: 16. Followed by [facility]. Paracentesis q. 2 weeks. EGD 2018 with grade II varices. Colonoscopy 2019 with [...] 5:20 PM EDT): I left message with [facility] requesting provider-provider consult given severity of [...] plan. I will reach out directly to [facility] for update and recommend patient placemen ton transplant list. Patient needs care management CORRINE. Will refer again today. Plan to have extended follow up visit with patient, daughter, and care mngmt present for advanced care planning. Morbid obesity (CMS/HCC) 04/21/2018 Osteoarthritis of multiple joints 04/21/2018 Schizophrenia 04/21/2018 Overview (03/10/2023): Schizophrenia c/b tardive dyskinesia. On haldol 5mg daily. Benztropine 0.5mg b.I.d for sx mngmt. Needs new psychiatrist. On wait list at [facility] in [place]. Referred to [facility] psychopharm clinic 11/2022 Assessment & Plan (05/06/2024 [...] provider. Catherine was referred to [facility] on 03/31. Information given to [facility] with [facility] contact number to request intake for psychotherapy and psychiatry services. During today's consult, Catherine was engaged with active, reflective listening. Reviewed and assessed for risk, current stressors and triggers using open-ended questions. Pt agreed with plan to contact [facility] and will update clinician if extra support is needed for MH services. PLAN: (check all that apply) Continue with current services (defined as services in the past 12 months) . Pt was referred to [facility] on 03/31. clinician provided information and printed out letter with [facility] contact numbers. clinician will be available if requested during next consult. Assessment & Plan (02/12/2024 9:53 AM EDT): PLAN: (check all that apply) New/Additional Services needed Off-site services for Behavioral Health Integration Plan External OP therapy referral and OP psychiatry Referral Patient Self Plan Patient to reach out to [facility] team as needed, Comply with medication [...] 3-Significant loss of protective sensation. Eye Exam:Pending [facility] referral Lipid panel: 11/2022 ASCVD: 6.7% Statin: [...] Plan (09/09/2023 4:10 PM EST): POC BS [facility] s/p 10 units lispro in office. UA [...] sliding scale as prescribed STAT referral to [facility] DM educator Lab Results Component Value Date [...] and do not with to continue with [facility] endocrinology Resolved Problems Problem Noted Date Diagnosed Date Resolved Date Hypervolemia 10/17/2022 02/14/2023 Noncompliance with treatment regimen 04/01/2022 12/07/2022 Nonalcoholic steatohepatitis 04/21/2018 03/10/2023 Encounters * This document contains information received from the source organization and may not represent a complete record from that organization. Date Type Department Care Team Description 08/03/2025 Telephone [facility] OPTOMETRY [address] [place] [address] Elisabeth Melchor, SHANEKA 07/16/2025 Telephone [facility] MEDICINE [address] [place] [address] Ana Davis FNP No Show 07/16/2025 Orders Only GENERIC EXTERNAL DATA DEPARTMENT Provider, Generic External Data 07/15/2025 Telephone [facility] [address] [place] [address] Ana Davis FNP chart prep 07/14/2025 Telephone [facility] [address] [place] [address] Ana Davis FNP 07/08/2025 Orders Only GENERIC EXTERNAL DATA DEPARTMENT Provider, Generic External Data 07/08/2025 Patient Outreach [address] [address] Ana Davis FNP Pre-visit Planning ((Unable to reach for PVP screening, LVM) to be completed in office ) 06/28/2025 Orders Only GENERIC EXTERNAL DATA DEPARTMENT Provider, Generic External Data 06/16/2025 Patient Outreach [address] [facility] Transition Of Care (Tcm) (HDF unscheduled ) 06/15/2025 Patient Outreach [facility] MED [facility] PEDS [address] [place] [address] [facility] 06/10/2025 Patient Outreach [address] [address] [facility] 06/03/2025 Patient Outreach [facility] [address] [place] [address] [facility] 05/28/2025 Orders Only GENERIC EXTERNAL DATA DEPARTMENT Provider, Generic External Data 05/24/2025 Patient Outreach [address] [address] [facility] Transition Of Care (Tcm) (HDF- Unscheduled -patient was transferred to a Rehab) 05/20/2025 Patient Outreach [facility] [address] [place] [address] [facility] 05/20/2025 Patient Outreach [facility] [address] [place] [address] [facility] Care Cordination (CP Care Coordination Chart Review ) 05/20/2025 Patient Outreach [address] [address] [facility] from Last 3 Months Immunizations Immunization Administration [...] Description 09/13/2025 2:30 PM EST Medication Management [facility] [address] [place] [address] Harrison Salazar, PharmD [address] [place] [address] 09/20/2025 10:00 AM EST Office Visit [facility] MED[facility] [address] [place] [phone] [facility], [facility] [address] [place] [address] Health Maintenance Due Date Last Done Comments [...] Procedure Name Priority Date/Time Associated Diagnosis Comments US ABDOMEN LIMITED Routine 07/16/2025 2: 00 PM EDT GLUCOSE, WHOLE BLOOD Routine 07/16/2025 1:33 PM EDT COMPREHENSIVE METABOLIC PANEL Routine 07/08/2025 10:57 AM EDT PROTHROMBIN TIME-INR Routine 07/08/2025 10:57 AM EDT CBC Routine 07/08/2025 10:57 AM EDT B TYPE NATRIURETIC PEPTIDE (BNP) Routine 07/08/2025 10:57 AM EDT Heart murmur US ABDOMEN COMPLETE Routine 06/28/2025 1 0:44 AM EDT GLUCOSE, WHOLE BLOOD Routine 06/28/2025 9:25 AM EDT GLUCOSE, WHOLE BLOOD Routine 05/28/2025 9:37 AM EDT US GUIDED ABDOMINAL PARACENTESIS Routine 05/28/2025 9:31 AM EDT POCT GLYCATED HEMOGLOBIN, TOTAL Routine [...] Recently Relevant to Health Maintenance Results * US Abdomen Limited (07/16/2025 2:00 PM EDT) Anatomical Region Laterality Modality Abdomen Ultrasound 07/16/2025 2:00 PM EDT Narrative 06/11/2025 8:40 AM EDT [place] [address] Ultrasound Report Signed Patient: Catherine Stern MR#: [id number] : 1960 Acct:[id number] Age/Sex: 64 / F ADM Date: 07/16/25 Loc: HO[facility] Attending Dr: Tono Nicole MD Ordering Physician: Mallorie Watson NP Date of Service: 07/16/25 Procedure(s): US abdomen limited Accession Number(s): [id number] cc: Mallorie Watson NETWORK SPECIALIST; [facility] Reason for Exam: ASCITES EXAMINATION: US ABDOMEN LIMITED CLINICAL INFORMATION: Cirrhosis, assess for ascites.. COMPARISON: 06/28/2025. TECHNIQUE: Real-time imaging of the abdomen all 4 quadrants. FINDINGS: Only trace ascites was visualized in the right upper quadrant. Ascites was insufficient volume for a safe paracentesis to be performed. US/US abdomen limited IMPRESSION: Insufficient ascites for safe paracentesis to be performed. Electronically signed by: Brock Acosta MD 07/16/2025 02:20 PM EDT Dictated By: Brock Acosta MD Signed By: <Electronically signed by Brock Acosta MD in OV> 07/16/25 1420 DD/ 1400 TD/TT: 07/16/25 1417 Silk Screener: Procedure Note Donotuseinterpreter, Image - 07/16/[address] [address] Ultrasound Report Signed Patient: Katharine SternR#: [id number] : 1960cct:[id number] Age/Sex: 64 / FADM Date: 07/16/25 Loc: HO.SSS Attending Dr: Tono Nicole MD Ordering Physician: Mallorie Watson NP Date of Service: 07/16/25 Procedure(s): US abdomen limited Accession Number(s): [id number] cc: Mallorie Watson NETWORK SPECIALIST; [facility] Reason for Exam: ASCITES EXAMINATION: US ABDOMEN LIMITED CLINICAL INFORMATION: Cirrhosis, assess for ascites.. COMPARISON: 06/28/2025. TECHNIQUE: Real-time imaging of the abdomen all 4 quadrants. FINDINGS: Only trace ascites was visualized in the right upper quadrant. Ascites was insufficient volume for a safe paracentesis to be performed. US/US abdomen limited IMPRESSION: Insufficient ascites for safe paracentesis to be performed. Electronically signed by: Brock Acosta MD 07/16/2025 02:20 PM EDT Dictated By: Brock Acosta MD Signed By: <Electronically signed by Brock Acosta MD in OV> 07/16/25 1420 DD/ 1400 TD/TT: 07/16/25 1417 Silk Screener: us [facility] External Provider IMG US PROCEDURES Edited Result - Final * (ABNORMAL) Glucose, Whole Blood (07/16/2025 1:33 PM EDT) Only the most recent of3 resultswithin the time period is included. Glucose, Whole Blood 197(H) 60 - 115 mg/dL [facility] Comment:METER #: [id number] 07/16/2025 1:33 PM EDT 07/16/2025 1:36 PM EDT Generic External Data Provider LAB BLOOD ORDERAB LES Final Result Performing Organization Address [facility] Co de Phone Number [facility] [address] [place] [phone] * (ABNORMAL) Prothrombin Time-INR (07/08/2025 10:57 AM EDT) Prothrombin Time 14.2(H) 10.9 - 12.4 SEC [facility] INTERNATIONAL NORM RATIO 1.2(H) 0.9 - 1.1 [facility] Comment:INTERNATIONAL NORMAL IZED RATIO (INR) [...] ORDERAB LES Final Result Performing Organization Address [facility] Co de Phone Number [facility] [address] [place] [phone] * (ABNORMAL) CBC (07/08/2025 10:57 AM EDT) White Blood Count 3.0(L) 4.8 - 10.8 X10*3/uL [facility] Red Blood Count 2.82(L) 4.20 - 5.50 X10*6/uL [facility] Hemoglobin 8.9(L) 12.0 - 16.0 g/dl [facility] Hematocrit 25.9(L) 37.0 - 47.0 % [facility] Mean Corpuscular Volume 91.8 80.0 - 98.0 fL [facility] Mean Corpuscular Hemoglobin 31.6 27.0 - 33.0 pg [facility] Mean Corpuscular HGB Conc 34.4 31.0 - 35.0 g/dl [facility] Red Cell Distribution Width 14.4 11.0 - 16.0 % [facility] Platelet Count 22(L) 160 - 400 X10*3/uL [facility] Mean Platelet Volume 11.9 9.4 - 12.3 fL [facility] NRBC Pct Auto 0.0 0.0 - 0.2 /100WBC [facility] NRBC Abs Auto 0.000 0.0 - 0.012 X10*3/uL [facility] 07/08/2025 10:5 7 AM EDT 07/08/2025 10:57 AM EDT Generic External Data Provider LAB BLOOD ORDERAB LES Final Result Performing Organization Address City/[facility]/ZIP Co de Phone Number [facility] [address] [place] [phone] * B Type Natriuretic Peptide (BNP) (07/08/2025 10:57 AM EDT) [facility] B Type Natriuretic Peptide 51 <100 pg/mL [facility] Blood Venous blood specimen / Unknown 07/08/2025 10:57 AM EDT 07/08/2025 10:57 AM EDT [facility] PIN INSERTER REGULATOR LAB BLOOD ORDERABLES Final Re sult Performing Organization Address [facility]/ZIP Co de Phone Number [facility] [address] [place] [phone] * (ABNORMAL) Comprehensive Metabolic Panel (07/08/2025 10:57 AM EDT) [facility] Sodium 136 135 - 145 mmol/L [facility] Potassium 4.5 3.3 - 5.1 mmol/L [facility] Chloride 110(H) 96 - 108 mmol/L [facility] Carbon Dioxide 23 22 - 29 mmol/L [facility] Anion Gap 8(L) 12 - 20 [facility] Urea Nitrogen (BUN) 31(H) 9 - 16 mg/dL [facility] Creatinine, Serum 0.98 0.5 - 1.4 mg/dL [facility] Estimated Glomerular Filt Rate 57 [facility] Comment:Chronic Kidney Disea se: Estimated GFR < 60 mL/min/1.84t0Avxvyh Kidney Disease: Estimated GFR < 15 mL/min/1.73m2 Glucose 237(H) 60 - 115 mg/dL [facility] Calcium 8.6 8.4 - 10.2 mg/dL [facility] Bilirubin, Total 0.7 0.0 - 1.0 mg/dL [facility] Aspartate Amino Transferase 41(H) 5 - 31 U/L [facility] Alanine Aminotransferase 24 0 - 31 U/L [facility] Total Protein 6.8 6.5 - 8.0 g/dL [facility] Albumin Level 3.0(L) 3.5 - 5.0 g/dL [facility] Alkaline Phosphatase 151(H) 39 - 117 U/L [facility] 07/08/2025 10:5 7 AM EDT 07/08/2025 10:57 AM EDT us Generic External Data Provider LAB BLOOD ORDERAB LES Final Result Performing Organization Address City/State/[facility] Co de Phone Number [facility] [address] [place] [phone] * US Abdomen Complete (06/28/2025 10:44 AM EDT) Anatomical Region Laterality Modality Abdomen Ultrasound 06/28/2025 10:4 4 AM EDT Narrative 06/28/2025 1:02 PM EDT [address] [address] Ultrasound Report Signed Patient: Catherine Stern MR#: [id number] : 1960 Acct:[id number] Age/Sex: 64 / F ADM Date: 06/28/25 Loc: HO.SSS Attending Dr: Tono Nicole MD Ordering Physician: Bobbi Roldan MD Date of Service: 06/28/25 Procedure(s): US abdomen complete Accession Number(s): [id number] cc: [facility]; Bobbi Roldan MD Reason for Exam: K74.60 [...] 06/28/25 1300 DD/ 1044 TD/TT: 06/28/25 1057 Silk Screener: Procedure Note Donotuseinterpreter, Image - 06/28/[address] [address] Ultrasound Report Signed Patient: Maki Stern#: [id number] : 1960cct:[id number] Age/Sex: 64 / FADM Date: 06/28/25 Loc: HO[facility] Attending Dr: Tono Nicole MD Ordering Physician: Bobbi Roldan MD Date of Service: 06/28/25 Procedure(s): US abdomen complete Accession Number(s): [id number] cc: Ana Davis [facility]; Bobbi Roldan MD Reason for Exam: K74.60 [...] 06/28/25 1300 DD/ 1044 TD/TT: 06/28/25 1057 Silk Screener: us [facility] External Provider IMG US PROCEDURES Edited Result - Final * US guided abdominal paracentesis (05/28/2025 9:31 AM EDT) Anatomical Region Laterality Modality Abdomen Ultrasound 05/28/2025 9:31 AM EDT Narrative 05/28/2025 2:16 PM EDT [place] [address] Ultrasound Report Signed Patient: Catherine Stern MR#: [id number] : 1960 Acct:[id number] Age/Sex: 64 / F ADM Date: 05/28/25 Loc: .[facility] Attending Dr: Mallorie Watson NP Ordering Physician: Mallorie Watson NP Date of Service: 05/28/25 Procedure(s): US paracentesis abd w/image Accession Number(s): [id number] cc: Mallorie Watson NETWORK SPECIALIST; [facility] EXAMINATION: US GUIDED PARACENTESIS CLINICAL INFORMATION: Ascites. [...] 05/28/25 1414 DD/ 0931 TD/TT: 05/28/25 1049 Silk Screener: [facility] Procedure Note Donotuseinterpreter, Image - 05/28/[address] [address] Ultrasound Report Signed Patient: Maki Stern#: [id number] : 1960cct:[id number] Age/Sex: 64 / FADM Date: 05/28/25 Loc: HO.SSS Attending Dr: Mallorie Watson NP Ordering Physician: Mallorie Watson NP Date of Service: 05/28/25 Procedure(s): US paracentesis abd w/image Accession Number(s): [id number] cc: Mallorie Watson NETWORK SPECIALIST; [facility] EXAMINATION: US GUIDED PARACENTESIS CLINICAL INFORMATION: Ascites. [...] 05/28/25 1414 DD/ 0931 TD/TT: 05/28/25 1049 Silk Screener: [facility] External Provider IMG US PROCEDURES Final Result * (ABNORMAL) POCT HGB A1C (02/12/2025 2:34 PM EDT) Hemoglobin A1C 10.4(A) 4.0 - 6.0 % QC Media Lot # [id number] Lot# Expiration Date Blood 02/12/2025 2:34 PM EDT [facility] POINT OF CARE TEST ENTER/EDIT ORDERABLES Final Result * Lipid Panel, Standard (08/31/2024 11:55 AM EST) Triglycerides 53 <150 mg/dL [facility] Comment:Desirable Triglyceri de: less than 150 mg/dLBorderline High Triglyceride 150-199 mg/dLHigh Triglyceride: 200-499 mg/dLVery High Triglyceride: greater than or equal to 5OO mg/dL Cholesterol 132 <200 mg/dL [facility] Comment:Desirable Cholestero l: less than 200 mg/dLBorderline High Cholesterol: 200-239 mg/dLHigh Cholesterol: greater than 239 mg/dL LDL Cholesterol Calculated 74 <100 mg/dL [facility] Comment:Desirable LDL: less than 100 mg/dLNear Optimal/Above Optimal LDL: 110- 129 mg/dLBorderline High LDL: 130-159 mg/dLHigh LDL: 160-189 mg/dLVery High LDL: greater than or equal to 190 mg/dL HDL Cholesterol 48 >40 mg/dL [facility] Comment:Desirable HDL: great er than 40 mg/dL Note: This HDL assay may give artificially low results in patients with liver disease. Blood Venous blood specimen / Unknown 08/31/2024 11:55 AM EST 08/31/2024 1:07 PM EST [facility] LAB BLOOD ORDERABLES Final Re sult [facility] [address] [place] [phone] * Hepatitis C Antibody with Reflex to HCV, RNA, Quantitative, Real-Time PCR (12/03/2022 11:57 AM EST) Hepatitis C Antibody NON-REACT LAURA NON-REACT LAURA [facility] Index 0.18 <1.00 [facility] Comment: HCV antibody was non-reactive. There is no laboratory evidence of HCV infection. In most cases, no further action is required. However, if recent HCV exposure is suspected, a test for HCV RNA (test code 07613) is suggested. For additional information please refer to http://education.[employer]/faq/WLR37u6 (This link is being provided for informational/ educational purposes only.) Blood Venous blood specimen / Unknown 12/03/2022 11:57 AM EST 12/03/2022 11:58 AM EST Narrative [facility] - 12/04/2022 2:01 AM EST FASTING:NO FASTING: NO [facility] LAB BLOOD ORDERABLES Final Re sult Performing Organization Address City/[facility] Hospital/ZIP Co de Phone Number [facility] [address] [place] [address], [place] [address] [facility] [facility] [address] [facility], ([address]2) [place] [address] * HIV-1/2 Antigen and Antibodies, Fourth Generation, with Reflexes (12/03/2022 11:57 AM EST) HIV Antigen/Antibody, 4th Generation NON-REAC TIVE NON-REAC TIVE [facility] Comment: HIV-1 antigen and HIV-1/HIV-2 antibodies [...] purpose. For additional information please refer to http://education.No Paper Just Vapor.OQO/faq/[facility]430 (This link is being provided for informational/ educational purposes only.) The performance of this assay has not been clinically validated in patients less than 2 years old. Blood Venous blood specimen / Unknown 12/03/2022 11:57 AM EST 12/03/2022 11:58 AM EST Narrative [facility] - 12/04/2022 2:01 AM EST FASTING:NO FASTING: NO [facility] LAB BLOOD ORDERABLES Final Re sult [address], [place] [address] [facility] [address], ([address]) [place] [address] * DIGITAL BILATERAL SCREEN 1 (08/17/2019 4:20 PM EDT) Anatomical Region Laterality Modality Breast Bilateral Mammography 08/17/2019 4:20 PM EDT Narrative 08/17/2019 4:22 PM EDT Refer to the Notes tab for result details Legacy Procedure: DIGITAL BILATERAL SCREEN 1 Procedure Note Provider, MD Paulo - 01/12/2023 Refer to the Notes tab for result details Legacy Procedure: DIGITAL BILATERAL SCREEN 1 Yash Arredondo PIN INSERTER REGULATOR IMG BI PROCEDURES Final Result from Last 3 Months or Most Recently Relevant to Health Maintenance Insurance [employer] Care Teams Real Estate Assistant Relationship Specialty Start Date End Date Ana Davis FNP [address] [place] [address] PCP - General Family Medicine 04/05/22 Andree Ulloa, ChelyD [address] [place] [address] Pharmacist Internal Medicine 05/09/23 Flavia Segundo Fabrication Machine OperatorNetwork Control Supervisor 10/10/23 Gabrielle Fitch Fabrication Machine OperatorNetwork Control Supervisor 11/05/24 [employer] 02/06/25
--- OUTSIDE RECORDS SUMMARY | 2025-08-19 12:32 | XMS_ITS | Encounter Summary ---
Author Organization [employer] Address [address] [facility] [address] [place] [address] Care Team Providers Care Dry Talc Racker Name Role Phone Ana Davis MARKET STALL VENDOR Primary Care Provider [phone] Andree Ulloa PharmD Unavailable [phone] Jacquie Sarkar Unavailable Jacquie Sarkar Unavailable Encounter Details Date Type Department Care Team (Late st Contact Info) Description 05/14/2025 Orders Only [facility] [address] [place], [place] [phone] Maye Ortiz NP [address] [place], [place] [phone] Social History Tobacco Use Types Packs/Day Years [...] Description 09/13/2025 2:30 PM EST Medication Management [facility] [address] [place] [phone] Harrison Salazar PharmD [address] [place] [phone] 09/20/2025 10:00 AM EST Office Visit [facility] [address] [place] [phone] Mccool JunctionAna, MARKET STALL VENDOR [address] [place] [address] documented as of this encounter Goals Goal [...] documented as of this encounter Care Teams Dry Talc Racker Relationship Specialty Start Date End Date Mccool JunctionAna FNP [address] [place] [address] PCP - General Family Medicine 04/05/22 Andree Ulloa PharmD [address] [place] [address] Pharmacist Internal Medicine 05/09/23 Jacquie Sarkar 05/20/25 06/03/25 Jacquie Sarkar 06/10/25 06/15/25 Flavia Segundo Health Practice ManagerMilk Treater 10/10/23 Gabrielle Fitch Health Practice ManagerMilk Treater 11/05/24 [employer] 02/06/25 documented as of this encounter
--- OUTSIDE RECORDS SUMMARY | 2025-08-19 12:32 | XMS_ITS | Data Portability ---
Author Organization [facility], Main Office Address [address] [facility] [address] [place] [address] Care Team Providers Care Supervisor [employer] Name Role Phone HYACINTH TAYLOR - 2ND [...] and Address Organization Details Recorded Time Asthenia [id number] Active 2024 LAVERNE HARRELL NP [address] [facility], [address], [place], [address], [facility] 5 14:05:42 Acute kidney injury 12909338 Active 2024 LAVERNE HARRELL NP [address] [facility], [address], [place], [address], [facility] 5 14:09:14 Chronic hyponatremia 30744026 Active 2024 LAVERNE HARRELL NP [address] [facility], [address], [place], [address], [facility] [employer] [facility] 5 14:09:15 Chronic hyperkalemia 26471754 Active 2024 LAVERNE HARRELL NP [address] [facility], [address], [place], [address], [facility] 5 14:09:18 Cirrhosis of liver 32455955 Active 2024 LAVERNE HARRELL NP [address] [facility], [address], [place], [address], [facility] [employer] [facility] 5 14:09:19 Hepatic encephalopathy 94358257 Active 2024 LAVERNE HARRELL NP [address] [facility], [address], [place], [address], [facility] 5 14:09:20 Renal disorder due to type 2 diabetes mellitus 498998789 Active 2024 LAVERNE HARRELL NP [address] [facility], [address], [place], [address], [facility] [employer] [facility] 5 14:09:21 Chronic anemia 770165386 Active 2024 LAVERNE HARRELL NP [address] [facility], [address], [place], [address], [facility] [employer] [facility] 5 14:09:23 Thrombocytopen ic disorder 496299097 Active 2024 LAVERNE HARRELL NP [address] [facility], [address], [place], [address], [facility] [employer] [facility] 5 14:09:25 Pancytopenia 976086505 Active 2024 LAVERNE HARRELL NP [address] [facility], [facility] [address], [place], [address], [facility] [employer] [facility] 5 14:11:13 Problem Notes None recorded. Medical Equipment None Reported. Allergies Allergen ID Allergen Name Allergen Category Reaction Reaction Severity Criticality Documentation Date Start Date Code Code System Note Provider Name and Address Organization Details Recorded Time 31550 Product containin g penicilli n (product) medicatio n Not available Not available Not available 03/18/2025 79988 8001 SNOMED LAVERNE HARRELL NP [address] [facility], [address], [place], [address], [facility] [employer] [facility] 5 13:49:11 Medications Not known to be on any medication Vitals Date Recorded Body height Heart rate Oxygen saturation Oxygen saturation in Arterial blood by Pulse oximetry Systolic And Diastolic Provider Name and Address Organization Details Last Updated DateTime 5 45.72 cm 79 /min 100 % 100 % 121/68 mm[Hg] Mallorie Watson NP [address] [facility], [address], [place], [address], [facility] 5 09:03:16 Date Recorded Body height Systolic And Diastolic Provider Name and Address Organization Details Last Updated DateTime 04/19/2025 45.72 cm 112/70 mm[Hg] Tono Nicole MD [address] [facility], [address], [place], [address], [facility] 04/19/2025 15:39:34 Date Recorded Body height Body mass index (BMI) Body weight Heart rate Respiratory rate Body temperature Oxygen saturation Oxygen saturation in Arterial blood by Pulse oximetry Systolic And Diastolic Provider Name and Address Organization Details Last Updated DateTime 5 167.64 cm 31 kg/m2 05226.7 4 g 80 /min 16 /min 97.5 [degF] 99 % 99 % 108/62 mm[Hg] Mallorie Watson NP [address] [facility], [facility] [address], [place], [address], [facility] 5 08:43:56 Date Recorded Body height Body mass index (BMI) Body weight Heart rate Respiratory rate Body temperature Oxygen saturation Oxygen saturation in Arterial blood by Pulse oximetry Systolic And Diastolic Provider Name and Address Organization Details Last Updated DateTime 5 167.64 cm 29.4 kg/m2 46426.8 1 g 80 /min 18 /min 98 [degF] 95 % 95 % 130/77 mm[Hg] Mallorie Watson NP [address] [facility], [facility] [address], [place], [address], [facility] 5 19:56:45 Social History Question Answer Notes LastModified by Organizat ion Details LastModified Time Tobacco Smoking Status Never Smoker LAVERNE HARRELL NP [address] [facility], [facility] [address], [place], [address], [facility] 03/18/2025 13:51:26 What Is Your Code Status? Full Code [email or web address] Information not available 03/18/2025 Do You Have A Medical Power Of Respiratory Therapy Director? Yes Has HCP [email or web address] Information not available 03/18/2025 What Was The Date Of Your Most Recent Tobacco Screening? 04/02/2025 [email or web address] Information not available 04/02/2025 Has Tobacco Cessation Counseling Been Provided? No [email or web address] Information not available 03/18/2025 Sex: Unknown Functional Status Question Answer Note LastModified by Organizat ion Details LastModified Time Do you use any illicit or recreational drugs? No [email or web address] Information not available 03/18/2025 Do you or have you ever used any other forms of tobacco or nicotine? No [email or web address] Information not available 03/18/2025 What is your level of alcohol consumption? None distant hx. [email or web address] Information not available 03/18/2025 Mental Status None recorded. Family History Relationship Description Onset Age of this Age Resolved Age Notes LastModified by Organization Details LastModified Time Father Malignant neoplasm of liver Not available 2024 13:50:48 Medical History No medical history recorded. Gynecological HistoryNo gynecological history recorded. Obstetrics History GPAL:G 0 P 0 0 0 0 Past Encounters Encounter ID Performer Location Encounter Start Date Encounter Closed Date Diagnosis/Indication Diagnosis SNOMED-CT Code Diagnosis ICD10 Code Diagnosis IMO Codes Diagnosis Note [id number] LAVERNE HARRELL NP [address] [address] 03/18/2025 13:48:33 03/30/2025 09:41:21 Asthenia 34675641 R53.1 45129 Deconditio justyna due to acute illness and hospitaliz ation.PT OT eval and tx.Goal is to return home. Acute kidney injury 1466 9001 N17.9 297596 Followed by Renal inpt., responded well to fluids and holding diuretics. Monitor ETHNOGRAPHER q wed.Avoid nephrotoxi cs Chronic hyponatremia 503 68656 E87.1 9775 Meds adjusted in hosp. with improvemen t in levels.Cur rently 129.Contin ue 1.5 L/d FRCMP q wed. x 3Consult renal prn Chronic hyperkalemia 407 58297 E87.5 9813 Meds adjusted in hosp. with improvemen t in levels.Cur rently 4.7CMP q wed.Consul t Renal prn Cirrhosis of liver 12111 007 K74.60 R18.8 [id number] Currently on:Lasix 60 mg qdLactulos e 30 ml/20gm tid - goal 3 soft stools dailyRifax imin 550 mg bidNow on levaquin 250 mg qd for SBP proph., Bactrim stopped due to renal issues.Off aldactone - stopped in hosp.VS and weights dailyCMP, NH3 q wed.Refer to GI prn Hepatic encephalopathy 41733017 K76.82 7927368 Improved in hosp.Maria Teresa nue:Lactul ose 30 ml/20 gm tid - goal 3 soft stools dailyRifax imin 550 mg bidCMP, NH3 q wed. Renal diso rder due to type 2 diabetes mellitus 967224149 E11.29 Z79.4 44433792 Continue:T resiba 58 U qdLispro SSICarb Control diet Schizoaffe ctive disorder 08930059 F25.9 93781593 Continue:B enztropine 0.5 mg q hsHaldol 10 mg bidMelaton in 3 mg q hs prnCurrent ly off lamictal due to renal issuesRefe r to Psych prnMonitor mood, behaviors. Pancytopenia 393008423 D 61.818 45503 2.06/28/26Co ntinue Ferrous Gluc. 240 mg qdBaseline platelets very low - 27CBC q wed.Monito r bleedingTr ansfuse prn [id number] Tono Nicole MD [address] [address] 03/20/2025 13:21:53 03/24/2025 10:07:22 Asthenia 80167109 R53.1 18112 PT OT Eval and treatmonit or fall risk and need for increased support in community Acute kidney injury 1466 9001 N17.9 824488 improved with IVF and holding diuretics since restartedm onitor renal function Chronic hyponatremia 503 20074 E87.1 9775 appears multifacto rial with recurring ascitesmon itor lytesno longer on spironolac tone Chronic hyperkalemia 407 38021 E87.5 9813 see above Cirrhosis of liver 51325 007 K74.60 R18.8 286775725 see HPI and aboverequi red paracentes is with > 3 liters removedcon tinued on lasixno longer on spironolac tonemonito r for increasing ascites Hepatic encephalopathy 58366988 K76.82 0571902 known underlying NASHmainta ined onlactulos e and rifaximinm onitor level of insightcoo rdinate with GIunsure of baseline however is confused with poor insightinv delmer HCPcontinu e supportive care Renal diso rder due to type 2 diabetes mellitus 280536435 E11.29 Z79.4 22456634 hyperglyce charly in hospital now ontresiba and SS insulinmon itor need to adjust Pancytopenia 635847081 D 61.818 96980 see above with baseline NASHmonito r plt levelcoord inate with heme as needed Chronic schizoaffective schizophrenia 602425671 F25.9 219689 maintained onHaldol 10 mg bidcogenti n 0.5 mg qhsmonitor presentati onupdate psych with concerns Impaired cognition 58512 6002 R41.89 016596 see aboveinvok e HCP [id number] Mallorie Watson, KJ [address] [address] 03/26/2025 09:09:47 03/30/2025 10:58:43 Asthenia 11537475 R53.1 00438 generalize d deconditio gumaro due to acute illness and hospitaliz ation.cont PT OT eval and tx.support maria antonia Loaiza is to return home. Acute kidney injury 1466 9001 N17.9 224993 improving as aboveFollo wed by Renal inpt., responded well to fluids and holding diuretics. Monitor ETHNOGRAPHER q wed.Avoid nephrotoxi cs Chronic hyponatremia 503 19160 E87.1 9775 Meds adjusted in hosp. with improvemen t in levels. much improved as aboveConti nue 1.5 L/d FRCMP q wed. x 3Consult renal prn Chronic hyperkalemia 407 73973 E87.5 9813 Meds adjusted in hosp. with improvemen t in levels, see aboveCMP q wed.Consul t Renal prn Cirrhosis of liver 007 K74.60 R18.8 [id number] Currently on:Lasix 60 mg qdLactulos e 30 ml/20gm tid - goal 3 soft stools dailyRifax imin 550 mg bidlevaqui n 250 mg qd for SBP proph., (Bactrim stopped due to renal issues.)Of f aldactone - stopped in hosp.VS and weights daily, stableCMP, NH3 q wed.Refer to GI prnof note: ammonia levels note able to be obtained here Hepatic encephalopathy 06655139 K76.82 7065274 Improved in hosp.Maria Teresa nue:Lactul ose 30 ml/20 gm tid - goal 3 soft stools dailyRifax imin 550 mg bidCMP, NH3 q wed. Renal diso rder due to type 2 diabetes mellitus 229622325 E11.29 Z79.4 33767505 BS controlled 100-2002Co ntinue:Eulalio siba 58 U qdLispro SSICarb Control diet Schizoaffe ctive disorder 56013598 F25.9 04287312 Continue:B enztropine 0.5 mg q hsHaldol 10 mg bidMelaton in 3 mg q hs prnCurrent ly off lamictal due to renal issuesRefe r to Psych prnMonitor mood, behaviors. Pancytopenia 561873437 D 61.818 58358 2.06/28/26Co ntinueFerr ous Gluc. 240 mg qdBaseline platelets very low - 19CBC q wed.Monito r bleedingTr ansfuse prnnot on ac, likely due to liver cirrhosis Impaired cognition 08928 6002 R41.89 244894 see aboveinvok e HCPpleasan tly confused Chronic schizoaffective schizophrenia 535461119 F25.9 377838 maintained onHaldol 10 mg bidcogenti n 0.5 mg qhsupdate psych with concerns [id number] [facility] [address] 03/29/2025 08:40:33 04/06/2025 09:51:47 Cirrhosis of liver 85584033 K74.60 R18.8 [id number] send to ER for abd pain/diste ntion/ possible paracentes isshe is not able to hold down fluids/irma d over weekend Pancytopenia 676008951 D 61.818 66362 2.06/28/26 on admit, see above, trending lowplatele tssend to ER for evaluation of abd pain/diste ntion Renal diso rder due to type 2 diabetes mellitus 589843648 E11.29 Z79.4 53752320 BS controlled low this am at 75,not eating well and vomiting, likely due to abd distention initially decreased Tresiba from 58 U qd to 50 unitsLispr o SSICarb Control diet, send to ER for eval now that she is vomiting Abdominal pain 44000137 R10.9 R11.10 R19.7 [id number] having abd pain, vomiting, nausea and abd distention with plat count of 19 last week, hx of cirrhosis and paracentes is last weeksend to er for eval [id number] Mallorie Watson NP [address] [address] 04/02/2025 08:07:07 04/06/2025 13:29:29 Abdominal pain 21073689 R10.9 R11.10 R19.7 [id number] resolved in hospworkup in hosp ruled out additional causes, likely due to ascites and liver cirrhosish ad paracentes is on 03/30 with 700 cc taken outadd zofran 4 mg po q 6 hours prn vomitingmo nitor weights, ability to eat/drink, and if another paracentes is may be neededmeas ure abd girth 3x/week and place in [facility] at umbilicus, notify Cirrhosis of liver 007 K74.60 R18.8 830610259 see hpiworkup in hosp ruled out additional causes, likely due to ascites and liver cirrhosish ad paracentes is on 03/30 with 700 cc taken outa workup for additional SBP(sponta neous bacterial peritoniti s) done and ruled out in hospital addzofran 4 mg po q 6 hours prn vomitinglo w sodium 2 gram dietdaily weightsFR 05835/ dayabd girth M W F, notify provider if greater than 3 cm. Cedrick umbilicous for consistent measuremen tmonitor for need to repeat tapcbc and bmp weekly indefinite ly Renal diso rder due to type 2 diabetes mellitus 182365550 E11.29 Z79.4 05351381 BS controlled in hospital 100s-200s per reportTres iba 58 U sc qd, monitor for need to decrease is eating lessLispro SSICarb Control low sodium dietmonito r need Pancytopenia 698858011 D 61.818 94759 continues with pancytopen ia as above likely related to cirrhosis and splenomega ly (severe splenomega ly up to 16.[address])monitor cbc weekly and for s/s of bleeding Hepatic encephalopathy 00031848 K76.82 1364057 Improved in hosp.Maria Teresa nue:Lactul ose 30 ml/20 gm tid - goal 3 soft stools dailyRifax imin 550 mg bidCMP, NH3 q wed. Asthenia 12854011 R53.1 70470 generalize d deconditio gumaro due to acute illness and hospitaliz ation.pt ot eval and treatconts upportive careGoal is to return home. Acute kidney injury 1466 9001 N17.9 155808 improving as aboveFollo wed by Renal inpt., responded well to fluids and holding diuretics. Monitor ETHNOGRAPHER q wed.Avoid nephrotoxi cs Chronic hyponatremia 503 91369 E87.1 9775 Meds adjusted in hosp. with improvemen t in levels. much improved as abovehosp rec low sodium diet for ascites, however with hyponatrem ia will cont regular carb consistent dietContin ue 1.5 L/d FRCMP q wed. x 3Consult renal prn Schizoaffe ctive disorder 15071966 F25.9 69767520 Cont:Benzt ropine 0.5 mg q hsHaldol 10 mg bidMelaton in 3 mg q hs prnCurrent ly off lamictal due to renal issuesRefe r to Psych prnMonitor mood, behaviors. Impaired cognition 67817 6002 R41.89 920688 see aboveinvok e HCPpleasan tly confused Chronic schizoaffective schizophrenia 151495177 F25.9 425630 maintained onHaldol 10 mg bidbenztro pine 0.5 mg qhsupdate psych with concerns [id number] Mallorie Watson NP [address] [address] 04/07/2025 12:08:38 04/14/2025 20:54:37 Cirrhosis of liver 99051648 K74.60 R18.8 878837794 see hpiworkup in hosp ruled out additional causes, likely due to ascites and liver cirrhosish ad paracentes is on 03/30 with 700 cc taken outa workup for additional SBP(sponta neous bacterial peritoniti s) done and ruled out in hospitalzo pricilla 4 mg po q 6 hours prn vomitinglo w sodium 2 gram dietdaily weightsFR 24577/ dayabd girth M W F, notify provider if greater than 3 cm. Cedrick umbilicous for consistent measuremen t. 04/17 =48inchesm onitor for need to repeat tapcbc and bmp weekly indefinite ly Renal diso rder due to type 2 diabetes mellitus 168419888 E11.29 Z79.4 40125272 BS controlled in hospital 100s-200s per reportTres iba 58 U sc qd, monitor for need to decrease is eating lessLispro SSICarb Control low sodium dietmonito r need Pancytopenia 070499851 D 61.818 04327 continues with pancytopen ia as above likely related to cirrhosis and splenomega ly (severe splenomega ly up to 16.[address])monitor cbc weekly and for s/s of bleeding Hepatic encephalopathy 87688922 K76.82 5584441 Improved in hosp.Maria Teresa nue:Lactul ose 30 ml/20 gm tid - goal 3 soft stools dailyRifax imin 550 mg bidCMP, NH3 q wed. Asthenia 93659418 R53.1 27770 generalize d deconditio gumaro due to acute illness and hospitaliz ation.pt ot eval and treatconts upportive careGoal is to return home. Acute kidney injury 1466 9001 N17.9 291957 improving as aboveFollo wed by Renal inpt., responded well to fluids and holding diuretics. Monitor ETHNOGRAPHER q wed.Avoid nephrotoxi cs Chronic hyponatremia 503 70306 E87.1 9775 Meds adjusted in hosp. with improvemen t in levels. much improved as abovehosp rec low sodium diet for ascites, however with hyponatrem ia will cont regular carb consistent dietContin ue 1.5 L/d FRCMP q wed. x 3Consult renal prn Schizoaffe ctive disorder 05576978 F25.9 89139472 Cont:Benzt ropine 0.5 mg q hsHaldol 10 mg bidMelaton in 3 mg q hs prnCurrent ly off lamictal due to renal issuesRefe r to Psych prnMonitor mood, behaviors. Impaired cognition 40111 6002 R41.89 327135 see aboveinvok e HCPpleasan tly confused Chronic schizoaffective schizophrenia 805119962 F25.9 005411 maintained onHaldol 10 mg bidbenztro pine 0.5 mg qhsupdate psych with concerns [id number] Mallorie Watson NP [address] [address] 04/14/2025 08:31:58 04/15/2025 10:48:26 Cirrhosis of liver K74.60 R18.8 437696800 see hpiworkup in hosp ruled out additional [...] rder due to type 2 diabetes mellitus 597218257 E11.29 Z79.4 53419173 BS controlled in hospital 100s-200s per reportTres iba 58 U sc qd, monitor for need to decrease is eating less(tresi ba not avail today and may use lantus until tonight when avail)Lisp ro SSICarb Control low sodium dietmonito r need Pancytopenia 497352062 D 61.818 91224 continues with pancytopen ia as above likely related to cirrhosis and splenomega ly (severe splenomega ly up to 16.[address])monitor cbc weekly and for s/s of bleeding Hepatic encephalopathy 47073445 K76.82 9759278 Improved in hosp.Maria Teresa nue:Lactul ose 30 ml/20 gm tid - goal 3 soft stools dailyRifax imin 550 mg bidCMP, NH3 q wed. Asthenia 38181483 R53.1 97782 generalize d deconditio gumaro due to acute illness and hospitaliz ation.pt ot eval and treatconts upportive careGoal is to return home. Acute kidney injury 1466 9001 N17.9 805799 contFollow ed by Renal inpt., responded well to fluids and holding diuretics. montior for need to to restart dureticsMo nitor CMP q wed.Avoid nephrotoxi cs Chronic hyponatremia 503 67085 E87.1 9775 Meds adjusted in hosp. with improvemen t in levels. much improved as abovehosp rec low sodium diet for ascites, however with hyponatrem ia will cont regular carb consistent dietContin ue 1.5 L/d FRCMP q wed. x 3Consult renal prn Schizoaffe ctive disorder 20324219 F25.9 76258937 Cont:Benzt ropine 0.5 mg q hsHaldol 10 mg bidMelaton in 3 mg q hs prnCurrent ly off lamictal due to renal issuesRefe r to Psych prnMonitor mood, behaviors. Impaired cognition 30949 6002 R41.89 362363 see aboveinvok e HCPpleasan tly confused Chronic schizoaffective schizophrenia 421715177 F25.9 927793 maintained onHaldol 10 mg bidbenztro pine 0.5 mg qhsupdate psych with concerns Chest pain 76762963 R07. 9 53620683 pt with cp [facility] ER visit with unremarkab le workup for cardiacmon itor vitals and cardiac status [id number] Tono Nicole MD [address] [address] 04/19/2025 15:39:01 04/20/2025 11:19:47 Hepatic encephalopathy 42921230 K76.82 1089055 known underlying NASHmainta ined onlactulos e 30 cc tidrifaxim in 550 mg bidcontinu e supportive care Impaired cognition 70212 6002 R41.89 579587 apparent baseline impaired cognition with underlying NASHHCP invokedcon tinue supportive careimpuls maria antonia behaviors is fall risk due to impairment and gait instabilit y Cirrhosis of liver K74.60 R18.8 100918703 see HPIlasix 60 mg qdnon compliant with fluid restrictio n of 1500 cc / daynow with increasing ascitessch edule for paracentes isto ED if increasing SOB [id number] Mallorie Watson NP [address] [place] [address] 04/26/2025 12:25:19 04/27/2025 12:12:43 Abdominal pain 55904384 R10.9 R11.10 R19.7 06329568 Plan: fu with GI and monitor ascites. [...] umbilicus, notify Cirrhosis of liver K74.60 R18.8 416737826 see hpiworkup in hosp ruled out additional [...] rder due to type 2 diabetes mellitus 683929593 E11.29 Z79.4 91179817 BS controlled 100s-200sT resiba 58 U sc qd, monitor for need to decrease is eating lessLispro SSICarb Control low sodium dietmonito r need Pancytopenia 933240598 D 61.818 70451 continues with pancytopen ia as above likely related to cirrhosis and splenomega ly (severe splenomega ly up to 16.[address])monitor cbc weekly 'monitor s/s of bleeding Hepatic encephalopathy 14467459 K76.82 9103695 resolvingC ont:Lactul ose 30 ml/20 gm tid - goal 3 soft stools dailyRifax imin 550 mg bidCMP, NH3 q wed. Asthenia 44428225 R53.1 12949 generalize d deconditio gumaro due to acute illness and hospitaliz ation.pt ot eval and treat, she continues to work with [employer] ortive careGoal is to return home. Acute kidney injury 1466 9001 N17.9 327021 improving as aboveFollo wed by Renal inpt., responded well to fluids and holding diuretics. Monitor ETHNOGRAPHER q wed.Avoid nephrotoxi cs Chronic hyponatremia 503 39172 E87.1 9775 Meds adjusted in hosp. with improvemen t in levels. much improved as abovehosp rec low sodium diet for ascites, however with hyponatrem ia will cont regular carb consistent dietCont1. 5 L/d FRCMP q wed. x 3Consult renal prn Schizoaffe ctive disorder 74322352 F25.9 02828348 Cont:Benzt ropine 0.5 mg q hsHaldol 10 mg bidMelaton in 3 mg q hs prnCurrent ly off lamictal due to renal issuesRefe r to Psych prnMonitor mood, behaviors. Impaired cognition 24317 6002 R41.89 466429 see aboveinvok e HCPpleasan tly confused Chronic schizoaffective schizophrenia 216014543 F25.9 917966 maintained onHaldol 10 mg bid, consider decreasing if lethargicb enztropine 0.5 mg qhsupdate psych with concerns [id number] Mallorie Watson NP [address] [address] 05/07/2025 08:23:15 05/13/2025 13:33:58 Abdominal pain 77676000 R10.9 R11.10 R19.7 16032080 fu with GI and monitor ascites.GI rec [...] *next paracentes is on 05/14 scheduled at [facility] need them scheduled frequently Cirrhosis of liver 86082 007 K74.60 R18.8 [id number] workup in hosp ruled out additional causes, [...] rder due to type 2 diabetes mellitus 028048205 E11.29 Z79.4 41592720 BS controlled 100s-200s, occ 300s (of note has hx of low BS at times)cont Tresiba 58 U sc qd, monitor for need to decrease is eating lessLispro SSICarb Control low sodium dietmonito r need Pancytopenia 059696955 D 61.818 16202 continues with pancytopen ia as above likely related to cirrhosis and splenomega ly (severe splenomega ly up to 16.[address])monitor cbc weekly, of note h/h trending downmonito r for need to transfuse <7monitor s/s of bleeding Hepatic encephalopathy 85901570 K76.82 1322813 overall confusion remains butCont:La ctulose 30 ml/20 gm tid - goal 3 soft stools dailycontR ifaximin 550 mg bidCMP, NH3 q wed. 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 Acute kidney injury 1466 9001 N17.9 846886 improving as aboveFollo wed by Renal inpt., responded well to fluids and holding diuretics. Monitor ETHNOGRAPHER q wed.Avoid nephrotoxi cs Chronic hyponatremia 503 35227 E87.1 9775 Meds adjusted in hosp. with improvemen t in levels. much improved as abovehosp rec low sodium diet for ascites, however with hyponatrem ia will cont regular carb consistent dietCont1. 5 L/d FRCMP q wed. x 3Consult renal prn Schizoaffe ctive disorder [id number] F25.9 [id number] Cont:Benzt ropine 0.5 mg q hsHaldol 10 mg bidMelaton in 3 mg q hs prnCurrent ly off lamictal due to renal issuesRefe r to Psych prnMonitor mood, behaviors. Impaired cognition 97558 6002 R41.89 351154 see aboveinvok e HCPpleasan tly confused Chronic schizoaffective schizophrenia [id number] F25.9 088741 maintained onHaldol 10 mg bid, consider decreasing if lethargicb enztropine 0.5 mg qhsupdate psych with concerns [id number] Mallorie Watson NP [address] [address] 05/17/2025 13:26:31 05/18/2025 11:06:16 Cirrhosis of liver 02776468 K74.60 R18.8 [id number] workup in hosp ruled out additional causes, [...] rder due to type 2 diabetes mellitus 215047883 E11.29 Z79.4 48208336 BS controlled 100s-200s, occ 300s (of note has hx of low BS at times)cont Tresiba 58 U sc qd, monitor for need to decrease is eating lessLispro SSICarb Control low sodium dietmonito r need Pancytopenia 839242124 D 61.818 86094 platets remains stable low, no s/s of bleedingco ntinues with pancytopen ia as above likely related to cirrhosis and splenomega ly (severe splenomega ly up to 16.[address])monitor cbc weekly, of note h/h trending downmonito r for need to transfuse <7monitor s/s of bleeding Hepatic encephalopathy 08879367 K76.82 5174377 overall confusion remains butCont:sp ironolacto ne 50mg po qdLactulos e 30 ml/20 gm tid - goal 3 soft stools dailyRifax imin 550 mg bidCMP, NH3 q wed. Asthenia 95586653 R53.1 83921 generalize d deconditio gumaro due to acute illness and hospitaliz ation.pt ot eval and treat, she continues to work with otcontsupp ortive careGoal is to return home. Acute kidney injury 1466 9001 N17.9 561003 currently on lasixcontM onitor CMP q wed.Avoid nephrotoxi cs Chronic hyponatremia 503 16586 E87.1 9775 Meds adjusted in hosp. with improvemen t in levels. much improved as abovehosp rec low sodium diet for ascites, however with hyponatrem ia will cont regular carb consistent dietCont1. 5 L/d FRCMP q wed. x 3Consult renal prn Schizoaffe ctive disorder 91964392 F25.9 61462631 Cont:Benzt ropine 0.5 mg q hsHaldol 10 mg bidMelaton in 3 mg q hs prnCurrent ly off lamictal due to renal issuesRefe r to Psych prnMonitor mood, behaviors. Impaired cognition 53725 6002 R41.89 711793 see aboveinvok e HCPpleasan tly confused Chronic schizoaffective schizophrenia [id number] F25.9 344606 mood pleasantco ntHaldol 10 mg bid, consider decreasing if lethargicb enztropine 0.5 mg qhsupdate psych with concerns Health Concerns Section Related Observation LastModified by Organization Detai ls LastModified Time None Recorded Concern Status LastModified by Organization Details LastModified Time None Recorded Advance Directives Directive None Recorded Payers Insurance Date Sequence Insurance Name Policy Number Policy Crowley Covered Member ID Crowley Member ID Guarantor Name 04/26/2025 1 [place] [facility] [id number] Catherine Petersons 03/22/2025 1 [facility] (PPO) Catherine Stern [id number] Catherine Petersons 03/22/2025 1 [place] [facility] Catherine Petersons [id number] Catherine Petersons Notes Date Note Type Note [...] showing nonischemic RBBB, trop x2 neg for NH. [place] is was not suggestive of dissection or [...] 64-year-old female with hx above presented to [facility] due to vomiting and abdominal distention, weight [...] code, has HCP Mallorie Watson, KJ [address] [facility], [address], [place], [address], [facility] - [email or web address] 04/14/2025 10:58:55 04/19/2025 text/html Patient is a [...] in past month Tono Nicole MD [address] [facility], [address], [place], [address], [facility] [email or web address] 04/19/2025 15:48:13 04/26/2025 text/html ROS as noted in the HPI Catherine is a 64 yo female, seen for a 30 day routine rounding visit. PMH: DM2, obese, schizoaffective d/o, decompensated liver cirrhosis with portal hypertension, ascites, splenomegaly, anemia with hemorrhoidal bleeds, thrombocytopenia, scoliosis She is a 64 yo lady, admitted to [facility] 03/17/25 from [facility] for continued care and rehab after a brief hosp. due to OLIVIA, encephalopathy. PMH: DM2, obese, schizoaffective d/o, liver cirrhosis, anemia, thrombocytopenia, scoliosis, hemorrhoids She presented to [facility] 03/02/25 due to elevated BS, lethargy, and [...] showed no drainable ascites. She returned to [facility] because of abdominal pain, and she had [...] and creatinine were stable. She presented to [facility] ER on 04/14 due to vomiting and [...] has just returned from her appt in [facility]. She is eating, drinking and moving her bowels per staff. She remains with very large abdomen and weight gain at 195 lbs, was 186 lbs last week, and 170 lbs in march. Overall, remains on notable decline. No s/s of bleeding or bruising noted. YAÑEZ: low fall riskFull code, has HCPHCP invoked Mallorie Watson NP [address] [facility], [address], [place], [address], [facility] - [email or web address] 04/26/2025 23:06:18 05/07/2025 text/html ROS as noted in the HPI Pt is seen for acute rounding visit. PMH: DM2, obese, schizoaffective d/o, decompensated liver cirrhosis with portal hypertension, ascites, splenomegaly, anemia with hemorrhoidal bleeds, thrombocytopenia, scoliosis She is a 64 yo lady, admitted to [facility] 03/17/25 from [facility] for continued care and rehab after a [...] 05/14 at the earliest appt available at [facility]. SHe is aware of the date. Her [...] has HCPHCP invoked Mallorie Watson NP [address] [facility], [address], [place], [address], [facility] [employer] [facility] 05/07/2025 09:09:15 05/17/2025 text/html ROS as noted in the HPI Pt is seen for acute rounding visit. PMH: DM2, obese, schizoaffective d/o, decompensated liver cirrhosis with portal hypertension, ascites, splenomegaly, anemia with hemorrhoidal bleeds, thrombocytopenia, scoliosis She is a 64 yo lady, admitted to [facility] 03/17/25 from [facility] for continued care and rehab after a [...] has HCPHCP invoked Mallorie Watson NP [address] [facility], [address], [place], [address], [facility] - [facility] 05/17/2025 20:32:35 OBGyn Episode No OBEpisode recorded.
--- OUTSIDE RECORDS SUMMARY | 2025-08-19 12:32 | XMS_ITS | Encounter Summary ---
Author Organization [employer] Address [address] [facility] 7t [place] [address] Care Team Providers Care Lens Edge Grinder Machine Name Role Phone [facility] Primary Care Provider [phone] Andree Ulloa PharmD Unavailable [phone] Maude Dennis RN Unavailable [phone] Jacquie Sarkar Unavailable Jacquie Sarkar Unavailable Reason for Visit * Reason Comments Med Refill Encounter Details Date Type Department Care Team (Late st Contact Info) Description 10/03/2023 Refill [facility] P[facility]S [address] [place], [place] [phone] [facility] [address] [place] [address] Schizophrenia, unspecified type (CMS/HCC) Social History Tobacco [...] your housing situation today? I have kimani klien 08/09/[address] you li [...] the past 12 months, has t he [employer], [employer], oil or water [employer] threatened to shut off services in your [...] 2:30 PM EST Medication Management [facility] [address] [place] [address] Harrison Salazar, ChelyD [address] [place] [address] 09/20/2025 10:00 AM EST Office Visit [facility] [address] [place] [address] [facility] [address] [place] [address] documented as of this encounter Goals Goal [...] encounter Visit Diagnoses Diagnosis Schizophrenia, unspecified type (HCC) documented in this encounter Additional Health Concerns Assessment Noted Time PHQ-9 Depression Total Score: 0 09/02/20 12:14 PM EST documented as of this encounter Care Teams Lens Edge Grinder Machine Relationship Specialty Start Date End Date [place] Ana [facility] [address] [place] [address] PCP - General Family Medicine 04/05/22 Andree Ulloa, Cesia [address] [place] [address] Pharmacist Internal Medicine 05/09/23 Maude Dennis RN [address] [place] [address] Prototype CarpenterProduct Tester Fiberglass 08/27/24 12/22/24 Jacquie Sarkar 05/20/25 06/03/25 Jacquie Sarkar 06/10/25 06/15/25 Flavia Segundo Soldering Machine OperatorProduct Tester [employer]lass 10/10/23 [employer] 08/14/24 02/11/25 Gabrielle Fitch Soldering Machine OperatorProduct Tester [employer] 11/05/24 [employer] 02/06/25 documented as of this encounter
--- OUTSIDE RECORDS SUMMARY | 2025-08-19 12:32 | XMS_ITS | Clinical Summary ---
Author Organization [facility] Address [address] [place] [address] Phone Care Team Providers Care Schedule Analyst Name Role Phone Yash Arredondo NP Primary Care Provider [phone] Allergies Active Allergy Reactions Criticality Noted Date [...] Decompensated QURESHI cirrhosis MELD-Na: 16. Followed by [facility]. Paracentesis q. 2 weeks. EGD 2019 with grade II varices. Colonoscopy 2019 with polyps removed. Tubular adenoma present. Lactulose 2-3x/day for hepatic encephalopathy with goal 2-3 BM's per day. On propranolol 30mg b.I.d for varices. Lasix 100mg daily and sironolactione 150mg for ascites. Thrombocytopenia (CMS/HCC V24) 04/21/2018 Surgical History Surgery Date Site/Laterality Comments OTHER SURGICAL HISTORY N/A PROCEDURE: [place] ABDOM PARACENTESIS DX/THER W/IMAGING GUIDANCE Medical History [...] mmol/L LAB CHEMISTRY METHOD 11/24/2024 8:52 PM [facility] Potassium 4.0 3.5 - 5.5 mmol/L LAB CHEMISTRY METHOD 11/24/2024 8:52 PM [facility] Chloride 103 96 - 110 mmol/L LAB CHEMISTRY METHOD 11/24/2024 8:52 PM [facility] CO2 25 21 - 32 mmol/L LAB CHEMISTRY METHOD 11/24/2024 8:52 PM [facility] Anion Gap 4 3 - 11 LAB CHEMISTRY METHOD 11/24/2024 8:52 PM [facility] Glucose 353(H) 70 - 100 mg/dL LAB CHEMISTRY METHOD 11/24/2024 8:52 PM [facility] BUN 23 5 - 25 mg/dL LAB CHEMISTRY METHOD 11/24/2024 8:52 PM [facility] Creatinine 0.93 0.50 - 1.10 mg/dL LAB CHEMISTRY METHOD 11/24/2024 8:52 PM [facility] eGFR 69 >=60 mL/min/1. 73m2 LAB CHEMISTRY METHOD 11/24/2024 8:52 PM [facility] Comment:Calculation based on the Chronic Kidney Disease Epidemiology Collaboration (CKD-EPI) equation refit without adjustment for race. BUN/Creatinine Ratio 24.7 LAB CHEMISTRY METHOD 11/24/2024 8:52 PM [facility] Calcium 8.3(L) 8.5 - 10.5 mg/dL LAB CHEMISTRY METHOD 11/24/2024 8:52 PM [facility] AST (SGOT) 29 10 - 42 unit/L LAB CHEMISTRY METHOD 11/24/2024 8:52 PM [facility] ALT (SGPT) 29 10 - 60 unit/L LAB CHEMISTRY METHOD 11/24/2024 8:52 PM [facility] Alkaline Phosphatase 188(H) 42 - 121 unit/L LAB CHEMISTRY METHOD 11/24/2024 8:52 PM [facility] Total Protein 6.6 6.0 - 8.0 g/dL LAB CHEMISTRY METHOD 11/24/2024 8:52 PM [facility] Albumin 2.4(L) 3.2 - 5.0 g/dL LAB CHEMISTRY METHOD 11/24/2024 8:52 PM [facility] Total Bilirubin 0.9 0.0 - 1.4 mg/dL LAB CHEMISTRY METHOD 11/24/2024 8:52 PM [facility] Blood Venous blood specimen / Unknown Venipuncture / Unknown 11/24/2024 8:01 PM EST 11/24/2024 8:11 PM EST us Rigo Genao MD LAB BLOOD ORDERABLES Final Result [facility] [address] [place] [address], * Lipid panel with reflex to direct LDL (10/13/2024 5:24 AM EST) Cholesterol 125 0 - 200 mg/dL LAB CHEMISTRY METHOD 10/13/2024 6:43 AM [facility] Triglycerides 66 0 - 150 mg/dL LAB CHEMISTRY METHOD 10/13/2024 6:43 AM [facility] HDL 48 >=40 mg/dL LAB CHEMISTRY METHOD 10/13/2024 6:43 AM [facility] LDL Calculated 64 0 - 100 mg/dL LAB CHEMISTRY METHOD 10/13/2024 6:43 AM [facility] VLDL Cholesterol Luke 13.2 mg/dL LAB CHEMISTRY METHOD 10/13/2024 6:43 AM [facility] Non HDL Chol. (LDL+VLDL) 77 <145 mg/dL LAB CHEMISTRY METHOD 10/13/2024 6:43 AM [facility] Chol/HDL Ratio 2.6 0.0 - 4.4 LAB CHEMISTRY METHOD 10/13/2024 6:43 AM [facility] Blood Venous blood specimen / Unknown Venipuncture / Unknown 10/13/2024 5:24 AM EST 10/13/2024 6:07 AM EST Salena RODRIGUEZ LAB BLOOD ORDERABLES Fi nal Result [facility] [address] [place] [address], from Last 3 Months or Most Recently Relevant to Health Maintenance Insurance [place]ICAID - [place] Advance Directives Documents on File Type Date Recorded Patient Paint Department Supervisor Expl anation Health Care Decision (hx) 12/28/2023 [...] currently active code status orders. Care Teams Schedule Analyst Relationship Specialty Start Date End Date Yash Arredondo NP [address] [place] [address] PCP - General 09/15/13
--- OUTSIDE RECORDS SUMMARY | 2025-08-19 12:32 | XMS_ITS | Encounter Summary ---
Author Organization [employer] Address [address] [facility] 7t [place] [address] Care Team Providers Care Victim Advocate Name Role Phone [facility] Primary Care Provider [phone] Andree Ulloa PharmD Unavailable [phone] Maude Dennis RN Unavailable [phone] Jacquie Sarkar Unavailable Jacquie Sarkar Unavailable Reason for Visit * Reason Onset Date Comments Med Refill 08/05/2024 Encounter Details Date Type Department Care Team (Late st Contact Info) Description 08/05/2024 Telephone [facility] [address] [place], [place] [phone] [facility] [address] [place] [address] Med Refill Social History Tobacco Use Types [...] the past 12 months, has t he [employer], gas, oil or water [facility] threatened to shut off services in your [...] from pt requesting a HDF appt. Hospital: [facility] Date of admission: 06/23/24 Discharge date: 08/13/24 Diagnosed: Multiple fractures of the ribs documented in this encounter Plan of Treatment Upcoming Encounters Date Type Department Care Team (Late st Contact Info) Description 09/13/2025 2:30 PM EST Medication Management [facility] [address] [place] [address] Harrison Salazar, PharmD [address] [place] [address] 09/20/2025 10:00 AM EST Office Visit [facility] [address] [place] [address] Ana Davis FNP [address] [place] [address] documented as of this encounter Goals Goal [...] documented as of this encounter Care Teams Victim Advocate Relationship Specialty Start Date End Date Ana Davis FNP [address] [place] [address] PCP - General Family Medicine 04/05/22 Andree Ulloa PharmD [address] [place] [address] Pharmacist Internal Medicine 05/09/23 Maude Dennis RN [address] [place] [address] Data ArchitectBroadcast Operations Director 08/27/24 12/22/24 Jacquie Sarkar 05/20/25 06/03/25 Jacquie Sarkar 06/10/25 06/15/25 Flavia Segundo Physician AsstBroadcast Operations Director 10/10/23 [facility] 08/14/24 02/11/25 Gabrielle Fitch Physician AsstBroadcast Operations Director 11/05/24 [facility] 02/06/25 documented as of this encounter
--- OUTSIDE RECORDS SUMMARY | 2025-08-19 12:32 | XMS_ITS | Clinical Summary ---
Author Organization [facility] Address [address] [place] [address] Care Team Providers Care Client Support Administrator Name Role Phone Unavailable Primary Care Provider [...] Care Team (Late st Contact Info) Description 09/02/2025 4:00 PM EST Behavioral Health Visit [facility] [address] [address] Dorota Glover APRN [address] [place] [address] Health Maintenance Due Date Last Done Comments Anxiety Screening 1961 HPV Screening (self-collect) 1961 HPV Screening 1961 Pap + HPV 1961 Tobacco Screening 1961 Hypertension Screening (#1) 1979 Cervical Cancer Screening [address] Colonography 2006 Colonoscopy 2006 Colorectal Cancer Screening 2006 FIT/gFOBT 2006 Fecal DNA 2006 Flexible Sigmoidoscopy 2006 Breast Cancer Screening (Mammogram) 08/17/2021 08/17/2019 Imm-Zoster, Recombinant (2 of 2) 12/13/2022 10/18/20 Alcohol and Drug Screen 10/21/2024 Depression Annual Screen 10/21/2024 Fom-MBJOC-12 (1 - season) 2025 Imm-Influenza (#1) 2025 08/31/2024, 1 11/02/2022, 10/05/2022, Additional history exists Diabetes Screening 05/14/2028 05/14/2025, 02/12/2025 Lipid Screening 08/31/2029 08/31/2024 Imm-DTaP/Tdap/Td (3 - Td or Tdap) 12/03/2032 12/03/2022, 11/27/2012, 12/01/1997 HIV Screening Completed 12/03/2022, 12/03/2022 Hepatitis C Screening Completed 12/03/2022 Imm-Pneumococcal 50+ Completed 12/03/2022, 07/29/2013, 02/17/2007 Cervical Ablation/Cold-Knife Conization Discontinued Cervical Cryotherapy Discontinued Colposcopy Discontinued Excision/Leep Discontinued HPV Genotyping Discontinued Vaginal Pap Discontinued Vulvoscopy Discontinued Insurance [facility]
--- OUTSIDE RECORDS SUMMARY | 2025-08-19 12:32 | XMS_ITS | Encounter Summary ---
Author Organization [employer] Address [address] [facility] 7t [place] [address] Care Team Providers Care Panelboard Assembler Name Role Phone [facility] Primary Care Provider [phone] Andree Ulloa PharmD Unavailable [phone] Maude Dennis RN Unavailable [phone] Jacquie Sarkar Unavailable Jacquie Sarkar Unavailable Reason for Visit * Reason Comments Med Refill Encounter Details Date Type Department Care Team (Late st Contact Info) Description 10/01/2023 Refill [facility] & PEDS [address] [place], [place] [phone] [facility] [address] [place] [address] Tardive dyskinesia; Schizophrenia, unspecified type (CMS/HCC) Social [...] the past 12 months, has t he [employer], gas, oil or water company threatened to [...] Description 09/13/2025 2:30 PM EST Medication Management [facility] [address] [place] [address] Harrison Salazar, ChelyD [address] [place] [address] 09/20/2025 10:00 AM EST Office Visit [facility] [address] [place] [address] [facility] [address] [place] [address] documented as of this encounter Goals Goal [...] dyskinesia due to drugs Schizophrenia, unspecified type (HCC) documented in this encounter Additional Health Concerns Assessment Noted Time PHQ-9 Depression Total Score: 0 09/02/20 12:14 PM EST documented as of this encounter Care Teams Panelboard Assembler Relationship Specialty Start Date End Date Ana DavisKAROLINA [address] [place] [address] PCP - General Family Medicine 04/05/22 Andree Ulloa PharmD [address] [place] [address] Pharmacist Internal Medicine 05/09/23 Maude Dennis, MARQUITA [address] [place] [address] Eligibility CounselorGrain Loader 08/27/24 12/22/24 Jacquie Sarkar 05/20/25 06/03/25 Jacquie Sarkar 06/10/25 06/15/25 Flavia Segundo Pressroom SupervisorGrain Loader 10/10/23 [facility] 08/14/24 02/11/25 Gabrielle Fitch Pressroom SupervisorGrain Loader 11/05/24 [facility] 02/06/25 documented as of this encounter
--- OUTSIDE RECORDS SUMMARY | 2025-08-19 12:32 | XMS_ITS | Encounter Summary ---
Author Organization [employer] Address [address] [facility] 7t [place] [address] Care Team Providers Care Telegraphic Service Dispatcher Name Role Phone [facility] Primary Care Provider [phone] Andree Ulloa PharmD Unavailable [phone] Maude Dennis RN Unavailable [phone] Jacquie Sarkar Unavailable Jacquie Sarkar Unavailable Reason for Visit * Reason Onset Date Comments requesting a call back 02/05/2023 Encounter Details Date Type Department Care Team ([facility] st Contact Info) Description 02/05/2023 Telephone [facility] [address] [place], [place] [phone] [facility] [address] [place] [address] requesting a call back Social History Tobacco [...] . States needs to return them to [facility] . documented in this encounter Plan of Treatment Upcoming Encounters Date Type Department Care Team (Late st Contact Info) Description 09/13/2025 2:30 PM EST Medication Management [address] [address] Harrison Salazar PharmD [address] [place] [address] 09/20/2025 10:00 AM EST Office Visit [address] [address] [place] [address] [address] documented as of this encounter Visit Diagnoses Not on filedocumented in this encounter Additional Health Concerns Assessment Noted Time PHQ-9 Depression Total Score: 0 12/03/19 10:53 AM EST documented as of this encounter Care Teams Telegraphic Service Dispatcher Relationship Specialty Start Date End Date SusanAna levy [facility] [address] [place] [address] PCP - General Family Medicine 04/05/22 Andree Ulloa PharmD [address] [place] [address] Pharmacist Internal Medicine 05/09/23 Maude Dennis, MARQUITA [address] [place] [address] Therapy TechnicianExchange Engineer 08/27/24 12/22/24 Jacquie Sarkar 05/20/25 06/03/25 Jacquie Sarkar 06/10/25 06/15/25 Flavia Segundo Scrap Metal BurnerExchange Engineer 10/10/23 [employer] 08/14/24 02/11/25 Gabrielle Fitch Scrap Metal BurnerExchange Engineer 11/05/24 [employer] 02/06/25 documented as of this encounter
--- OUTSIDE RECORDS SUMMARY | 2025-08-19 12:32 | XMS_ITS | Encounter Summary ---
Author Organization [employer] Address 75 [facility] 7t [place] [address] Care Team Providers Care Contact Acid Plant Operator Name Role Phone Ana Davis COLORIST DYER Primary Care Provider [phone] Andree Ulloa PharmD Unavailable [phone] Maude Dennis RN Unavailable [phone] Jacquie Sarkar Unavailable Jacquie Sarkar Unavailable Encounter Details Date Type Department Care Team (Late Contact Info) Description 01/21/2023 Telephone [facility] MEDICINE 230 [place], [place] [phone] Kimberly Donaldson LPN Social History Tobacco Use [...] Department Care Team (Late Contact Info) Description 09/13/2025 2:30 PM EST Medication Management [facility] MEDICINE 230 [place], [place] [phone] Harrison Salazar, PharmD 230 [place] [address] 09/20/2025 10:00 AM EST Office Visit [facility] MED[facility]INE 230 [place] [address] [place] Ana [facility] 230 [place] [address] documented as of this encounter Visit Diagnoses Not on filedocumented in this encounter Additional Health Concerns Assessment Noted Time PHQ-9 Depression Total Score: 0 12/03/19 10:53 AM EST documented as of this encounter Care Teams Contact Acid Plant Operator Relationship Specialty Start Date End Date Ana Davis [facility] [address] [place] [address] PCP - General Family Medicine 04/05/22 Andree Ulloa PharmD [address] [place] [address] Pharmacist Internal Medicine 05/09/23 Maude Dennis, MARQUITA [address] [place] [address] Aviation ElectricianCall Or Contact Centre Manager 08/27/24 12/22/24 Jacquie Sarkar 05/20/25 06/03/25 Jacquie Sarkar 06/10/25 06/15/25 Flavia Segundo Assistant Professor Of ChemistryCall Or Contact Centre Manager 10/10/23 [employer] 08/14/24 02/11/25 Gabrielle Fitch Assistant Professor Of ChemistryCall Or Contact Centre Manager 11/05/24 [employer] 02/06/25 documented as of this encounter
--- OUTSIDE RECORDS SUMMARY | 2025-08-19 12:32 | XMS_ITS | Encounter Summary ---
Author Organization [employer] Address 75 [facility] 7t [place] [address] Care Team Providers Care Rough And Trueing Machine Operator Name Role Phone [facility] Primary Care Provider [phone] Andree Ulloa PharmD Unavailable [phone] Maude Dennis RN Unavailable [phone] Jacquie Sarkar Unavailable Jacquie Sarkar Unavailable Reason for Visit * Reason Comments Med Refill Encounter Details Date Type Department Care Team (Late st Contact Info) Description 10/03/2023 Refill [facility] CHC MED & PEDS 505 [place], [place] [phone] [facility] 230 [place] [address] Tardive dyskinesia Social History Tobacco Use Types [...] the past 12 months, has t he [employer], [employer], oil or water bettermarks threatened to shut off services in your [...] Description 09/13/2025 2:30 PM EST Medication Management [address] [address] Harrison Salazar PharmD [address] [place] [address] 09/20/2025 10:00 AM EST Office Visit [facility] MEDICINE [address] [place] [address] [facility], [facility] 230 [place] [address] documented as of this encounter Goals Goal Patient Goal Type Associated Problems Recent Progress Patient-Stated? Author Check your blood sugar as directed General On track( 023 4:12 PM EDT) Jacob Pagan PharmD Note: Use CGM, ensuring sensor is [...] documented as of this encounter Care Teams Rough And Trueing Machine Operator Relationship Specialty Start Date End Date Ana DavisMARIA TP 230 [place] [address] PCP - General Family Medicine 04/05/22 Andree Ulloa, Cesia 230 [place] [address] Pharmacist Internal Medicine 05/09/23 Maude Dennis RN [address] [place] [address] Motor Power ConnectorCenter Manager 08/27/24 12/22/24 Jacquie Sarkar 05/20/25 06/03/25 Jacquie Sarkar 06/10/25 06/15/25 Flavia Segundo Medical Records SecretaryCenter Manager 10/10/23 [employer] 08/14/24 02/11/25 Gabrielle Fitch Medical Records SecretaryCenter Manager 11/05/24 [employer] 02/06/25 documented as of this encounter
--- OUTSIDE RECORDS SUMMARY | 2025-08-19 12:32 | XMS_ITS | Encounter Summary ---
Author Organization [employer] Address 75 [facility] 7t [place] [address] Care Team Providers Care Power Plant Manager Name Role Phone [facility] Primary Care Provider [phone] Andree Ulloa PharmD Unavailable [phone] Jacquie Sarkar Unavailable Jacquie Sarkar Unavailable Reason for Visit * Reason Onset Date Comments Med Refill 02/09/2025 Encounter Details Date Type Department Care Team (Late st Contact Info) Description 02/09/2025 Telephone [facility] 230 [place], [place] [phone] [facility] 230 [place] [address] Med Refill Social History Tobacco Use Types [...] for this patient to enroll care in [facility] - Diabetes clinic. Please send at your earliest convenience. * Telephone Encounter - Reinaldo Darling - 02/09/2025 9:50 AM EDT TC from pt requesting medication refill. Medications needing refill : insulin degludec (Tresiba FlexTouch) 200 UNIT/ML injection Blood Glucose Monitoring Suppl (D-Care Glucometer) w/Device kit To be sent to: [facility]- - [place], [place] - [address] [facility] documented in this encounter Plan of Treatment Upcoming Encounters Date Type Department Care Team ([facility] st Contact Info) Description 09/13/2025 2:30 PM EST Medication Management [facility] [address] [place] [address] Harrison Salazar, Cesia [address] [facility] [place] [address] 09/20/2025 10:00 AM EST Office Visit [facility] [address] [place] [address] [facility] [place] [place] [address] documented as of this encounter Goals Goal [...] as of this encounter Care Teams Power Plant Manager Relationship Specialty Start Date End Date [facility] [place] [address] PCP - General Family Medicine 04/05/[address] [facility] [place] [phone] Pharmacist Internal Medicine 05/09/23 Jacquie Sarkar 05/20/25 06/03/25 Jacquie Sarkar 06/10/25 06/15/25 Flavia Segundo Pit RecorderSocial Services Analyst 12/21/23 [employer] 08/14/24 02/11/25 Gabrielle Fitch Pit RecorderSocial Services Analyst 11/05/24 [facility] [employer] 02/06/25 documented as of this encounter
--- NOTE | 2025-08-20 07:33 | PC.NURSE ---
md hinojosa by bedside and central sterile tech to check to see if patient has any fluid in her abdomen for her paracentesis. professor of archaeology by the bedside as well.
--- NOTE | 2025-08-20 07:35 | PC.NURSE ---
md hinojosa cancelled patient. no fluid seen.
--- NOTE | 2025-08-20 07:40 | PC.NURSE ---
spoke to rebeca campbell at [facility]. sending patient back-cancelled paracentesisi per md hinojosa. called ambulance company to pickup patient.
--- NOTE | 2025-08-20 08:25 | PC.NURSE ---
patient sleeping. resting comfortably. [facility] ambulance picking up patient back to [facility].
== END ==
LOC: HO.SSS 07:01
PROVIDERS: Radiology Diagnostic Radiology; PCP Registered Nurse; Visit Provider Nurse Practitioner
DX: R18.0 Malignant ascites (principal); Z53.8 Procedure and treatment not carried out for other reasons; K74.60 Unspecified cirrhosis of liver

== ENCOUNTER 2025-08-27 13:06 | Inpatient (IN) | payer MEDICAID, SELFPAY ==
[2025-08-27] VITALS (10 sets, daily range): BP systolic 129–150; BP diastolic 50–74; PULSE 78–90; RESP 17–22; TEMP 36.5–36.6; O2SAT 96–100; BMI 36.2
--- NOTE | ~2025-08-27 | XR_ITS ---
EXAMINATION: XR CHEST CLINICAL INFORMATION: cp COMPARISON: August 03, 2025 TECHNIQUE: Frontal view of the chest was obtained. FINDINGS: There is persistent blunting of the right costophrenic angle. Lungs clear. Heart size is within normal limits. XR/XR chest 1V IMPRESSION: Persistent blunting of the right costophrenic angle. This could be related to pleural effusion, atelectasis, and/or scarring. Electronically signed by: John Arciniega MD 08/27/2025 05:00 PM [facility]
--- NOTE | ~2025-08-27 | CT_ITS ---
CLINICAL HISTORY: sob CT angiography chest with contrast. 3D Postprocessing. Comparison: None provided Findings: The heart size is normal. RV/LV ratio is normal. Unremarkable thoracic aorta and great vessels. No aneurysm. No acute pulmonary embolus. Dilated esophagus with asymmetric mural thickening of the distal esophagus and GE junction. No main or segmental pulmonary emboli identified. Right lower lobe posterior medial aspect right areas of consolidation, 4.7 x 3.9 x 6.6 cm craniocaudal. The liver demonstrates a microlobulated contour with hypertrophy of the caudate lobe. Peripancreatic mildly edema. The bones are intact. IMPRESSION: 1. Right lower lobe posteromedial consolidation measuring 4.7 x 3.9 x 6.6 cm, concerning for pneumonia versus round atelectasis as identified on 05/2025. Tumor has not been excluded. Short-term follow-up is suggested. 2. Dilated esophagus with asymmetric mural thickening of the distal esophagus and gastroesophageal junction. 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 3. Cirrhosis. 4. Mild peripancreatic edema; acute pancreatitis can not be excluded. Clinical correlation suggested. 5. No main or segmental pulmonary emboli identified. This document has been electronically signed by: Yony Gooden MD on 08/27/2025 19:54:06
--- NOTE | ~2025-08-27 | CT_ITS ---
CLINICAL HISTORY: LLQ pain, severe distension CT abdomen and pelvis without contrast Comparison: CT/SR - CT ABDOMEN PELVIS W IV CON - 06/09/25 19:37 EDT Findings: The lung bases are clear. Right lower lobe posterior dependent area of round consolidation, 4.5 x 2.9 x 7 cm. Left liver lobe subcentimeter granuloma. The liver demonstrates an irregular contour with hypertrophy of the caudate lobe. Prior cholecystectomy. Splenomegaly, 16 cm. The pancreas is homogeneous in attenuation. The left and right kidney demonstrate homogeneous enhancement. Peripancreatic edema. There is diffuse fecal material seen throughout the colon. Umbilical hernia, defect 1.9 cm with herniation 5 cm, heterogeneous in attenuation with mural thickening of the rim. Hiatal hernia. Diverticulosis. The uterus within normal limits. The appendix is within normal limits. The bones are intact. Mild osteopenia. IMPRESSION: 1. Re-identified right lower lobe posterior dependent consolidation, 4.5 x 2.9 x 7 cm; round pneumonia suspected. 2. Cirrhosis 3. Splenomegaly, 16 cm. 4. Peripancreatic edema; subacute pancreatitis and/or mesenteric panniculitis. Clinical correlation suggested. 5. Umbilical hernia, 1.9 cm defect with 5 cm herniation and mural thickening; incarceration can not be excluded. Clinical correlation suggested. This document has been electronically signed by: Yony Gooden MD on 08/27/2025 22:57:57
--- NOTE | 2025-08-27 13:13 | ECG_ITS ---
Test Reason : CP Blood Pressure : */* mmHG Vent. Rate : 83 BPM Atrial Rate : 83 BPM P-R Int : 138 ms QRS Dur : 116 ms QT Int : 408 ms P-R-T Axes : 42 18 14 degrees QTcB Int : 479 ms Normal sinus rhythm Right bundle branch block Abnormal ECG When compared to the previous EKG of No significant changes seen Referred By: Estelle Sandoval Electronically Signed By: GEORGE BEATTY MD
--- OUTSIDE RECORDS SUMMARY | 2025-08-27 15:48 | XMS_ITS | Encounter Summary ---
Author Organization [employer] Address 75 [facility] 7t [place] [address] Care Team Providers Care Asparagus Buncher Name Role Phone [facility] Primary Care Provider [phone] Andree Ulloa PharmD Unavailable [phone] Maude Dennis RN Unavailable [phone] Jacquie Sarkar Unavailable Jacquie Sarkar Unavailable Reason for Visit * Reason Comments Med Refill Encounter Details Date Type Department Care Team (Late st Contact Info) Description 10/01/2023 Refill [facility] CHC MED & PEDS 505 [place], [place] [phone] [facility] 230 [place] [address] Tardive dyskinesia; Schizophrenia, unspecified type (CMS/HCC) Social [...] Care Team (Late st Contact Info) Description 09/07/2025 2:00 PM EST Office Visit [address] [address] Nettie Garcia MD [address] [place] [address] 09/13/2025 2:30 PM EST Medication Management [address] [address] Harrison Salazar, PharmD [address] [place] [address] 09/20/2025 10:00 AM EST Office Visit [address] [address] Ana Davis FNP [address] [place] [address] documented as of this encounter Goals Goal [...] documented as of this encounter Care Teams Asparagus Buncher Relationship Specialty Start Date End Date Ana Davis FNP 230 [place] [address] PCP - General Family Medicine 04/05/22 Andree Ulloa, ChelyD 230 [place] [address] Pharmacist Internal Medicine 05/09/23 Maude Dennis, MARQUITA 505 [place] [address] Building EstimatorSewer Maintenance Supervisor 08/27/24 12/22/24 Jacquie Sarkar 05/20/25 06/03/25 Jacquie Sarkar 06/10/25 06/15/25 Flavia Segundo BookkeeperSewer Maintenance Supervisor 10/10/23 [employer] 08/14/24 02/11/25 Gabrielle Fitch BookkeeperSewer Maintenance Supervisor 11/05/24 [employer] 02/06/25 documented as of this encounter
--- OUTSIDE RECORDS SUMMARY | 2025-08-27 15:48 | XMS_ITS | Encounter Summary ---
Author Organization [employer] Address 75 [facility] 7t [place] [address] Care Team Providers Care Tubular Stock Glass Bulb Machine Former Name Role Phone [facility] Primary Care Provider [phone] Andree Ulloa PharmD Unavailable [phone] Jacquie Sarkar Unavailable Jacquie Sarkar Unavailable Reason for Visit * Reason Onset Date Comments Med Refill 02/09/2025 Encounter Details Date Type Department Care Team (Late st Contact Info) Description 02/09/2025 Telephone [facility] MEDICINE 230 [place], [place] [phone] [facility] 230 [place] [address] Med Refill Social History Tobacco Use Types [...] your housing situation today? I have kimani kilne 02/24/[address] you li [...] for this patient to enroll care in [facility] - Diabetes clinic. Please send at your earliest convenience. * Telephone Encounter - Reinaldo Darling - 02/09/2025 9:50 AM EDT TC from pt requesting medication refill. Medications needing refill : insulin degludec (Tresiba FlexTouch) 200 UNIT/ML injection Blood Glucose Monitoring Suppl (D-Care Glucometer) w/Device kit To be sent to: [facility]- - [place], [place] - [address] [facility] documented in this encounter Plan of Treatment Upcoming Encounters Date Type Department Care Team ([facility] st Contact Info) Description 09/07/2025 2:00 PM EST Office Visit [facility] MEDICINE [address] [place] [address] [phone] Nettie Garcia MD [address] [facility] [place] [address] 09/13/2025 2:30 PM EST Medication Management [facility] [place], [place] [phone] Harrison Salazar PharmD [address] [place] 09/20/2025 10:00 AM EST Office Visit [facility] [place] [phone] Ana Davis FNP [address] [facility] [place] [address] documented as of this encounter Goals Goal [...] documented as of this encounter Care Teams Tubular Stock Glass Bulb Machine Former Relationship Specialty Start Date End Date Ana Davis FNP [facility] [place] MD [phone] PCP - General Family Medicine 04/05/22 Andree Ulloa PharmD [facility] [place] [phone] Pharmacist Internal Medicine 05/09/23 Jacquie Sarkar 05/20/25 06/03/25 Jacquie Sarkar 06/10/25 06/15/25 Flavia Segundo Tax Revenue OfficerOperator Helper 10/10/23 [employer] 08/14/24 02/11/25 Gabrielle Fitch Tax Revenue OfficerOperator Helper 11/05/24 [employer] 02/06/25 documented as of this encounter
--- OUTSIDE RECORDS SUMMARY | 2025-08-27 15:48 | XMS_ITS | Clinical Summary ---
Author Organization [facility] Address [address] [facility] [address] [place] [address] Phone Care Team Providers Care Title I Instructional Assistant Name Role Phone Unavailable Primary Care Provider [...] morning. 3 Active Insulin Pen Needle (Pen [place] 01/03 ) 31G X 5 MM misc [...] Care Team (Late st Contact Info) Description 10/11/2025 4:30 PM EST Office Visit [facility] [address] [place] [phone] Rigo Freed MD [address] [facility] 204 [place] [phone] Health Maintenance Due Date Last Done Comments [...]
--- OUTSIDE RECORDS SUMMARY | 2025-08-27 15:48 | XMS_ITS | Encounter Summary ---
Author Organization [employer] Address 75 [facility] 7t [place] [address] Care Team Providers Care Rn Building Name Role Phone [facility] Primary Care Provider [phone] Andree Ulloa PharmD Unavailable [phone] Reason for Visit * Reason Comments Pre-visit Planning HDF scheduled. Encounter Details Date Type Department Care Team ([facility] Contact Info) Description 08/27/2025 Patient Outreach [facility] MED & PEDS 505 [place], [place] [phone] [facility] 230 [place] [address] Pre-visit Planning (HDF scheduled. ) Social History Tobacco Use Types Packs/Day [...] as of this encounter Miscellaneous Notes * Significant Event - Janice Musa - 08/27/2025 10:17 AM EST 08/27/25 1015 Hospital Discharges and Admission for [facility] Type of Visit Hospital Admission Date of Admission/Visit 03/17/25 Date of Discharge 08/27/25 Facility [facility] Diagnosis Hepatic encephalopathy Disposition Discharged Home Follow-Up Actions Follow-Up Needed Provider appointment Follow-Up Outcome Booked Appointment;Spoke to Caregiver Initial Contact Date 08/27/25 Received incoming call from the Direct Hospital Line from [facility]. Patient was admitted to this facility on 03/17/25 for diagnosis of Hepatic Encephalopathy. Patient will be discharged from the facility on 08/27/25 Patient has been scheduled for an HDF appointment on 09/07/25 at 2:00pm with Dr. Kirby jenkins. CM requested discharge summaries to be faxed to the Care Management Department at [phone]. CC will follow up on discharge summary following patient's discharge. Insurance verified priorto scheduling. documented in this encounter Plan of Treatment Upcoming Encounters Date Type Department Care Team (Late st Contact Info) Description 09/07/2025 2:00 PM EST Office Visit [facility] 230 [place], [place] [phone] Nettie Garcia MD [address] [facility] [place] 09/13/2025 2:30 PM EST Medication Management [address] [phone] Harrison [place] [address] 09/20/2025 10:00 AM EST Office Visit [facility] [address] [place], [place] [phone] Ana Davis [facility] [address] [place], [place] documented as of this encounter Goals Goal [...] as of this encounter Care Teams Rn Building Relationship Specialty Start Date End Date Ana Davis FNP [place], [place] PCP - General Family Medicine 04/05/22 [place] [address] Pharmacist Internal Medicine 05/09/23 Flavia Segundo Tactical Air Defense ControllerReal Estate Agent 10/10/23 Gabrielle Fitch Tactical Air Defense ControllerReal Estate Agent 11/05/24 [employer] 02/06/25 documented as of this encounter
--- OUTSIDE RECORDS SUMMARY | 2025-08-27 15:48 | XMS_ITS | Encounter Summary ---
Author Organization [employer] Address 75 [facility] 7t [place] [address] Care Team Providers Care Border Measurer And Cutter Name Role Phone [facility] Primary Care Provider [phone] Andree Ulloa PharmD Unavailable [phone] Maude Dennis RN Unavailable [phone] Jacquie Sarkar Unavailable Jacquie Sarkar Unavailable Reason for Visit * Reason Comments Med Refill Encounter Details Date Type Department Care Team (Late st Contact Info) Description 10/03/2023 Refill [facility] CHC MED & PEDS 505 [place], [place] [phone] [facility] 230 [place] [address] Schizophrenia, unspecified type (CMS/HCC) Social History Tobacco [...] the past 12 months, has t he [employer], gas, oil or water company threatened to [...] Description 09/07/2025 2:00 PM EST Office Visit [address] [address] Nettie Garcia MD [address] [place] [address] 09/13/2025 2:30 PM EST Medication Management [address] [address] Harrison Salazar, PharmD [address] [place] [address] 09/20/2025 10:00 AM EST Office Visit [address] [address] Ana Davis FNP [address] [place] [address] documented as of this encounter Goals Goal [...] Worsening( 4:12 PM EDT) No Jacob Llanos, PharmFelicita Hemoglobin A1c < 8 Result Component 10.4(02/13/20 2:34 PM EDT) No Andree Ulloa PharmD documented as of this encounter Visit Diagnoses Diagnosis Schizophrenia, unspecified type (HCC) documented in this encounter Additional Health Concerns Assessment Noted Time PHQ-9 Depression Total Score: 0 09/02/20 12:14 PM EST documented as of this encounter Care Teams Border Measurer And Cutter Relationship Specialty Start Date End Date Ana Davis FNP 230 [place] [address] PCP - General Family Medicine 04/05/22 Andree Ulloa, PharmD 230 [place] [address] Pharmacist Internal Medicine 05/09/23 Maude Dennis, RN [address] [place] [address] Rn Progressive Care UnitRetail Chain Store Area Supervisor 08/27/24 12/22/24 Jacquie Sarkar 05/20/25 06/03/25 Jacquie Sarkar 06/10/25 06/15/25 Flavia Segundo Hop PickerRetail Chain Store Area Supervisor 10/10/23 [email or web address] 08/14/24 02/11/25 Gabrielle Fitch Hop PickerRetail Chain Store Area Supervisor 11/05/24 [email or web address] 02/06/25 documented as of this encounter
--- OUTSIDE RECORDS SUMMARY | 2025-08-27 15:48 | XMS_ITS | Data Portability ---
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, [address], [place], [address], [facility] 5 14:05:42 Acute kidney injury 31968387 Active 2024 LAVERNE HARRELL NP 38 [facility], [address], [place], [address], [facility] 5 14:09:14 Chronic hyponatremia 08094235 Active 2024 LAVERNE HARRELL NP [address] [facility], [facility], [address], [place], [address], [facility] [employer] [facility] [employer] [facility] 5 14:09:15 Chronic hyperkalemia 94223114 Active 2024 LAVERNE HARRELL NP [address] [facility], [address], [place], [address], [facility] 5 14:09:18 Cirrhosis of liver 76236082 Active 2024 LAVERNE HARRELL NP 38 [facility], [address], [place], [address], [facility] [employer] [facility] [employer] [facility] 5 14:09:19 Hepatic encephalopathy 14722098 Active 2024 LAVERNE HARRELL NP 38 [facility], [address], [place], [address], [facility] 5 14:09:20 Renal disorder due to type 2 diabetes mellitus 776352213 Active 2024 LAVERNE HARRELL NP 38 [facility], [address], [place], [address], [facility] [employer] [facility] [employer] [facility] 5 14:09:21 Chronic anemia 598921428 Active 2024 LAVERNE HARRELL NP [address] [facility], [address], [place], [address], [facility] [employer] [facility] 5 14:09:23 Thrombocytopen ic disorder 224283768 Active 2024 LAVERNE HARRELL NP 38 [facility], [address], [place], [address], [facility] [employer] [facility] 5 14:09:25 Pancytopenia 474441121 Active 2024 LAVERNE HARRELL NP 38 [facility], [facility] [address], [place], [address], [facility] [employer] [facility] 5 14:11:13 Problem Notes None recorded. Medical Equipment None Reported. Allergies Allergen ID Allergen Name Allergen Category Reaction Reaction Severity Criticality Documentation Date Start Date Code Code System Note Provider Name and Address Organization Details Recorded Time 06449 Product containin g penicilli n (product) medicatio n Not available Not available Not available 03/18/2025 64719 8001 SNOMED LAVERNE HARRELL NP 38 [facility], [address], [place], [address], [facility] [employer] [facility] [employer] [facility] 5 13:49:11 Medications Not known to be on any medication Vitals Date Recorded Body height Heart rate Oxygen saturation Oxygen saturation in Arterial blood by Pulse oximetry Systolic And Diastolic Provider Name and Address Organization Details Last Updated DateTime 5 45.72 cm 79 /min 100 % 100 % 121/68 mm[Hg] Mallorie Watson NP [address] [facility], [address], [place], [address], [facility] 5 09:03:16 Date Recorded Body height Systolic And Diastolic Provider Name and Address Organization Details Last Updated DateTime 04/19/2025 45.72 cm 112/70 mm[Hg] Tono Nicole MD [address] [facility], [address], [place], [address], [facility] 04/19/2025 15:39:34 Date Recorded Body height Body mass index (BMI) Body weight Heart rate Respiratory rate Body temperature Oxygen saturation Oxygen saturation in Arterial blood by Pulse oximetry Systolic And Diastolic Provider Name and Address Organization Details Last Updated DateTime 5 167.64 cm 31 kg/m2 37765.7 4 g 80 /min 16 /min 97.5 [degF] 99 % 99 % 108/62 mm[Hg] Mallorie Watson NP [address] [facility], [facility] [address], [place], [address], [facility] 5 08:43:56 Date Recorded Body height Body mass index (BMI) Body weight Heart rate Respiratory rate Body temperature Oxygen saturation Oxygen saturation in Arterial blood by Pulse oximetry Systolic And Diastolic Provider Name and Address Organization Details Last Updated DateTime 5 167.64 cm 29.4 kg/m2 65048.8 1 g 80 /min 18 /min 98 [degF] 95 % 95 % 130/77 mm[Hg] Mallorie Watson NP 38 [facility], [facility] [address], [place], [address], [facility] 5 19:56:45 Social History Question Answer Notes LastModified by Organizat ion Details LastModified Time Tobacco Smoking Status Never Smoker LAVERNE HARRELL NP [address] [facility], [facility] [address], [place], [address], [facility] 03/18/2025 13:51:26 What Is Your Code Status? Full Code [email or web address] Information not available 03/18/2025 Do You Have A Medical Power Of Bartender Manager? Yes Has HCP [email or web address] Information not available 03/18/2025 What Was The Date Of Your Most Recent Tobacco Screening? 04/02/2025 [email or web address] Information not available 04/02/2025 Has Tobacco Cessation Counseling Been Provided? No [email or web address] Information not available 03/18/2025 Sex: Unknown Functional Status Question Answer Note LastModified by Organizat ion Details LastModified Time Do you use any illicit or recreational drugs? No Information not available 03/18/2025 Do you or have you ever used any other forms of tobacco or nicotine? No Information not available 03/18/2025 What is your level of alcohol consumption? None distant hx. [email or web address] Information not available 03/18/2025 Mental Status None [...] ICD10 Code Diagnosis IMO Codes Diagnosis Note [id number] LAVERNE HARRELL NP [address] [address] 03/18/2025 13:48:33 03/30/2025 09:41:21 Asthenia 83037152 R53.1 97829 Deconditio justyna due to acute illness and hospitaliz ation.PT OT eval and tx.Goal is to return home. Acute kidney injury 1466 9001 N17.9 827377 Followed by Renal inpt., responded well to fluids and holding diuretics. Monitor PIECER q wed.Avoid nephrotoxi cs Chronic hyponatremia 503 12103 E87.1 9775 Meds adjusted in hosp. with improvemen t in levels.Cur rently 129.Contin ue 1.5 L/d FRCMP q wed. x 3Consult renal prn Chronic hyperkalemia 407 63509 E87.5 9813 Meds adjusted in hosp. with improvemen t in levels.Cur rently 4.7CMP q wed.Consul t Renal prn Cirrhosis of liver 67368 007 K74.60 R18.8 414247346 Currently on:Lasix 60 mg qdLactulos e 30 ml/20gm tid - goal 3 soft stools dailyRifax imin 550 mg bidNow on levaquin 250 mg qd for SBP proph., Bactrim stopped due to renal issues.Off aldactone - stopped in hosp.VS and weights dailyCMP, NH3 q wed.Refer to GI prn Hepatic encephalopathy 68420946 K76.82 3920458 Improved in hosp.Maria Teresa nue:Lactul ose 30 ml/20 gm tid - goal 3 soft stools dailyRifax imin 550 mg bidCMP, NH3 q wed. Renal diso rder due to type 2 diabetes mellitus 158654479 E11.29 Z79.4 49083196 Continue:T resiba 58 U qdLispro SSICarb Control diet Schizoaffe ctive disorder 53978232 F25.9 75210348 Continue:B enztropine 0.5 mg q hsHaldol 10 mg bidMelaton in 3 mg q hs prnCurrent ly off lamictal due to renal issuesRefe r to Psych prnMonitor mood, behaviors. Pancytopenia 950394609 D 61.818 48466 2.06/28/26Co ntinue Ferrous Gluc. 240 mg qdBaseline platelets very low - 27CBC q wed.Monito r bleedingTr ansfuse prn [id number] Tono Nicole MD [address] [address] 03/20/2025 13:21:53 03/24/2025 10:07:22 Asthenia 31390879 R53.1 61715 PT OT Eval and treatmonit or fall risk and need for increased support in community Acute kidney injury 1466 9001 N17.9 333157 improved with IVF and holding diuretics since restartedm onitor renal function Chronic hyponatremia 503 22314 E87.1 9775 appears multifacto rial with recurring ascitesmon itor lytesno longer on spironolac tone Chronic hyperkalemia 407 21523 E87.5 9813 see above Cirrhosis of liver 00647 007 K74.60 R18.8 492178078 see HPI and aboverequi red paracentes is with > 3 liters removedcon tinued on lasixno longer on spironolac tonemonito r for increasing ascites Hepatic encephalopathy 88101158 K76.82 6495694 known underlying NASHmainta ined onlactulos e and rifaximinm onitor level of insightcoo rdinate with GIunsure of baseline however is confused with poor insightinv delmer HCPcontinu e supportive care Renal diso rder due to type 2 diabetes mellitus 374823746 E11.29 Z79.4 87154792 hyperglyce charly in hospital now ontresiba and SS insulinmon itor need to adjust Pancytopenia 429455024 D 61.818 53493 see above with baseline NASHmonito r plt levelcoord inate with heme as needed Chronic schizoaffective schizophrenia 943512840 F25.9 797552 maintained onHaldol 10 mg bidcogenti n 0.5 mg qhsmonitor presentati onupdate psych with concerns Impaired cognition 86748 6002 R41.89 448834 see aboveinvok e HCP [id number] Mallorie Watson, KJ [address] [address] 03/26/2025 09:09:47 03/30/2025 10:58:43 Asthenia 64007051 R53.1 47610 generalize d deconditio gumaro due to acute illness and hospitaliz ation.cont PT OT eval and tx.support maria antonia Loaiza is to return home. Acute kidney injury 1466 9001 N17.9 252460 improving as aboveFollo wed by Renal inpt., responded well to fluids and holding diuretics. Monitor PIECER q wed.Avoid nephrotoxi cs Chronic hyponatremia 503 02961 E87.1 9775 Meds adjusted in hosp. with improvemen t in levels. much improved as aboveConti nue 1.5 L/d FRCMP q wed. x 3Consult renal prn Chronic hyperkalemia 407 23915 E87.5 9813 Meds adjusted in hosp. with improvemen t in levels, see aboveCMP q wed.Consul t Renal prn Cirrhosis of liver 007 K74.60 R18.8 841793705 Currently on:Lasix 60 mg qdLactulos e 30 ml/20gm tid - goal 3 soft stools dailyRifax imin 550 mg bidlevaqui n 250 mg qd for SBP proph., (Bactrim stopped due to renal issues.)Of f aldactone - stopped in hosp.VS and weights daily, stableCMP, NH3 q wed.Refer to GI prnof note: ammonia levels note able to be obtained here Hepatic encephalopathy 68956714 K76.82 2888255 Improved in hosp.Maria Teresa nue:Lactul ose 30 ml/20 gm tid - goal 3 soft stools dailyRifax imin 550 mg bidCMP, NH3 q wed. Renal diso rder due to type 2 diabetes mellitus 987797262 E11.29 Z79.4 84331147 BS controlled 100-2002Co ntinue:Eulalio siba 58 U qdLispro SSICarb Control diet Schizoaffe ctive disorder 38954889 F25.9 42473889 Continue:B enztropine 0.5 mg q hsHaldol 10 mg bidMelaton in 3 mg q hs prnCurrent ly off lamictal due to renal issuesRefe r to Psych prnMonitor mood, behaviors. Pancytopenia 915093680 D 61.818 02575 2.06/28/26Co ntinueFerr ous Gluc. 240 mg qdBaseline platelets very low - 19CBC q wed.Monito r bleedingTr ansfuse prnnot on ac, likely due to liver cirrhosis Impaired cognition 66905 6002 R41.89 397186 see aboveinvok e HCPpleasan tly confused Chronic schizoaffective schizophrenia 851760543 F25.9 745844 maintained onHaldol 10 mg bidcogenti n 0.5 mg qhsupdate psych with concerns [id number] [facility] [address] 03/29/2025 08:40:33 04/06/2025 09:51:47 Cirrhosis of liver 49630524 K74.60 R18.8 970684397 send to ER for abd pain/diste ntion/ possible paracentes isshe is not able to hold down fluids/irma d over weekend Pancytopenia 333453368 D 61.818 91325 2.06/28/26 on admit, see above, trending lowplatele tssend to ER for evaluation of abd pain/diste ntion Renal diso rder due to type 2 diabetes mellitus 062112101 E11.29 Z79.4 70315935 BS controlled low this am at 75,not eating well and vomiting, likely due to abd distention initially decreased Tresiba from 58 U qd to 50 unitsLispr o SSICarb Control diet, send to ER for eval now that she is vomiting Abdominal pain 39661603 R10.9 R11.10 R19.7 59918349 having abd pain, vomiting, nausea and abd distention with plat count of 19 last week, hx of cirrhosis and paracentes is last weeksend to er for eval [id number] Mallorie Watson NP [address] [address] 04/02/2025 08:07:07 04/06/2025 13:29:29 Abdominal pain 38211855 R10.9 R11.10 R19.7 56410005 resolved in hospworkup in hosp ruled out additional causes, likely due to ascites and liver cirrhosish ad paracentes is on 03/30 with 700 cc taken outadd zofran 4 mg po q 6 hours prn vomitingmo nitor weights, ability to eat/drink, and if another paracentes is may be neededmeas ure abd girth 3x/week and place in [facility] at umbilicus, notify Cirrhosis of liver 007 K74.60 R18.8 810800196 see hpiworkup in hosp ruled out additional causes, likely due to ascites and liver cirrhosish ad paracentes is on 03/30 with 700 cc taken outa workup for additional SBP(sponta neous bacterial peritoniti s) done and ruled out in hospital addzofran 4 mg po q 6 hours prn vomitinglo w sodium 2 gram dietdaily weightsFR 28140/ dayabd girth M W F, notify provider if greater than 3 cm. Cedrick umbilicous for consistent measuremen tmonitor for need to repeat tapcbc and bmp weekly indefinite ly Renal diso rder due to type 2 diabetes mellitus 604619087 E11.29 Z79.4 45744221 BS controlled in hospital 100s-200s per reportTres iba 58 U sc qd, monitor for need to decrease is eating lessLispro SSICarb Control low sodium dietmonito r need Pancytopenia 365123329 D 61.818 91282 continues with pancytopen ia as above likely related to cirrhosis and splenomega ly (severe splenomega ly up to 16.[address])monitor cbc weekly and for s/s of bleeding Hepatic encephalopathy 35627314 K76.82 0019737 Improved in hosp.Maria Teresa nue:Lactul ose 30 ml/20 gm tid - goal 3 soft stools dailyRifax imin 550 mg bidCMP, NH3 q wed. Asthenia 76102586 R53.1 37069 generalize d deconditio gumaro due to acute illness and hospitaliz ation.pt ot eval and treatconts upportive careGoal is to return home. Acute kidney injury 1466 9001 N17.9 539633 improving as aboveFollo wed by Renal inpt., responded well to fluids and holding diuretics. Monitor PIECER q wed.Avoid nephrotoxi cs Chronic hyponatremia 503 02643 E87.1 9775 Meds adjusted in hosp. with improvemen t in levels. much improved as abovehosp rec low sodium diet for ascites, however with hyponatrem ia will cont regular carb consistent dietContin ue 1.5 L/d FRCMP q wed. x 3Consult renal prn Schizoaffe ctive disorder 35300353 F25.9 17715396 Cont:Benzt ropine 0.5 mg q hsHaldol 10 mg bidMelaton in 3 mg q hs prnCurrent ly off lamictal due to renal issuesRefe r to Psych prnMonitor mood, behaviors. Impaired cognition 04809 6002 R41.89 063390 see aboveinvok e HCPpleasan tly confused Chronic schizoaffective schizophrenia 910915826 F25.9 913303 maintained onHaldol 10 mg bidbenztro pine 0.5 mg qhsupdate psych with concerns [id number] Mallorie Watson NP [address] [address] 04/07/2025 12:08:38 04/14/2025 20:54:37 Cirrhosis of liver 79766538 K74.60 R18.8 199732983 see hpiworkup in hosp ruled out additional causes, likely due to ascites and liver cirrhosish ad paracentes is on 03/30 with 700 cc taken outa workup for additional SBP(sponta neous bacterial peritoniti s) done and ruled out in hospitalzo pricilla 4 mg po q 6 hours prn vomitinglo w sodium 2 gram dietdaily weightsFR 51456/ dayabd girth M W F, notify provider if greater than 3 cm. Cedrick umbilicous for consistent measuremen t. 04/17 =48inchesm onitor for need to repeat tapcbc and bmp weekly indefinite ly Renal diso rder due to type 2 diabetes mellitus 971772339 E11.29 Z79.4 46979101 BS controlled in hospital 100s-200s per reportTres iba 58 U sc qd, monitor for need to decrease is eating lessLispro SSICarb Control low sodium dietmonito r need Pancytopenia 321062901 D 61.818 35550 continues with pancytopen ia as above likely related to cirrhosis and splenomega ly (severe splenomega ly up to 16.[address])monitor cbc weekly and for s/s of bleeding Hepatic encephalopathy 89453946 K76.82 2366377 Improved in hosp.Maria Teresa nue:Lactul ose 30 ml/20 gm tid - goal 3 soft stools dailyRifax imin 550 mg bidCMP, NH3 q wed. Asthenia 87480608 R53.1 92225 generalize d deconditio gumaro due to acute illness and hospitaliz ation.pt ot eval and treatconts upportive careGoal is to return home. Acute kidney injury 1466 9001 N17.9 162005 improving as aboveFollo wed by Renal inpt., responded well to fluids and holding diuretics. Monitor PIECER q wed.Avoid nephrotoxi cs Chronic hyponatremia 503 05196 E87.1 9775 Meds adjusted in hosp. with improvemen t in levels. much improved as abovehosp rec low sodium diet for ascites, however with hyponatrem ia will cont regular carb consistent dietContin ue 1.5 L/d FRCMP q wed. x 3Consult renal prn Schizoaffe ctive disorder 64962873 F25.9 03107065 Cont:Benzt ropine 0.5 mg q hsHaldol 10 mg bidMelaton in 3 mg q hs prnCurrent ly off lamictal due to renal issuesRefe r to Psych prnMonitor mood, behaviors. Impaired cognition 69620 6002 R41.89 252646 see aboveinvok e HCPpleasan tly confused Chronic schizoaffective schizophrenia 254041169 F25.9 848498 maintained onHaldol 10 mg bidbenztro pine 0.5 mg qhsupdate psych with concerns [id number] Mallorie Watson NP [address] [address] 04/14/2025 08:31:58 04/15/2025 10:48:26 Cirrhosis of liver K74.60 R18.8 270843593 see hpiworkup in hosp ruled out additional [...] rder due to type 2 diabetes mellitus 901967807 E11.29 Z79.4 90795531 BS controlled in hospital 100s-200s per reportTres iba 58 U sc qd, monitor for need to decrease is eating less(tresi ba not avail today and may use lantus until tonight when avail)Lisp ro SSICarb Control low sodium dietmonito r need Pancytopenia 410912306 D 61.818 06867 continues with pancytopen ia as above likely related to cirrhosis and splenomega ly (severe splenomega ly up to 16.[address])monitor cbc weekly and for s/s of bleeding Hepatic encephalopathy 37023511 K76.82 7722645 Improved in hosp.Maria Teresa nue:Lactul ose 30 ml/20 gm tid - goal 3 soft stools dailyRifax imin 550 mg bidCMP, NH3 q wed. Asthenia 69723130 R53.1 83847 generalize d deconditio gumaro due to acute illness and hospitaliz ation.pt ot eval and treatconts upportive careGoal is to return home. Acute kidney injury 1466 9001 N17.9 320855 contFollow ed by Renal inpt., responded well to fluids and holding diuretics. montior for need to to restart dureticsMo nitor CMP q wed.Avoid nephrotoxi cs Chronic hyponatremia 503 39082 E87.1 9775 Meds adjusted in hosp. with improvemen t in levels. much improved as abovehosp rec low sodium diet for ascites, however with hyponatrem ia will cont regular carb consistent dietContin ue 1.5 L/d FRCMP q wed. x 3Consult renal prn Schizoaffe ctive disorder 38113443 F25.9 45160256 Cont:Benzt ropine 0.5 mg q hsHaldol 10 mg bidMelaton in 3 mg q hs prnCurrent ly off lamictal due to renal issuesRefe r to Psych prnMonitor mood, behaviors. Impaired cognition 55722 6002 R41.89 153742 see aboveinvok e HCPpleasan tly confused Chronic schizoaffective schizophrenia 648599784 F25.9 427678 maintained onHaldol 10 mg bidbenztro pine 0.5 mg qhsupdate psych with concerns Chest pain 04052782 R07. 9 41472263 pt with [place] [facility] [place] with unremarkab le workup for cardiacmon itor vitals and cardiac status [id number] Tono Nicole MD [address] [address] 04/19/2025 15:39:01 04/20/2025 11:19:47 Hepatic encephalopathy 31214424 K76.82 3081734 known underlying NASHmainta ined onlactulos e 30 cc tidrifaxim in 550 mg bidcontinu e supportive care Impaired cognition 43776 6002 R41.89 229902 apparent baseline impaired cognition with underlying NASHHCP invokedcon tinue supportive careimpuls maria antonia behaviors is fall risk due to impairment and gait instabilit y Cirrhosis of liver K74.60 R18.8 690964516 see HPIlasix 60 mg qdnon compliant with fluid restrictio n of 1500 cc / daynow with increasing ascitessch edule for paracentes isto ED if increasing SOB [id number] Mallorie Watson NP [address] [place] [address] 04/26/2025 12:25:19 04/27/2025 12:12:43 Abdominal pain 28304189 R10.9 R11.10 R19.7 64278910 Plan: fu with GI and monitor ascites. [...] umbilicus, notify Cirrhosis of liver K74.60 R18.8 314518581 see hpiworkup in hosp ruled out additional [...] rder due to type 2 diabetes mellitus 882964877 E11.29 Z79.4 22203974 BS controlled 100s-200sT resiba 58 U sc qd, monitor for need to decrease is eating lessLispro SSICarb Control low sodium dietmonito r need Pancytopenia 729253437 D 61.818 78670 continues with pancytopen ia as above likely related to cirrhosis and splenomega ly (severe splenomega ly up to 16.[address])monitor cbc weekly 'monitor s/s of bleeding Hepatic encephalopathy 36556969 K76.82 5404272 resolvingC ont:Lactul ose 30 ml/20 gm tid - goal 3 soft stools dailyRifax imin 550 mg bidCMP, NH3 q wed. Asthenia 09703693 R53.1 82093 generalize d deconditio gumaro due to acute illness and hospitaliz ation.pt ot eval and treat, she continues to work with [employer] ortive careGoal is to return home. Acute kidney injury 1466 9001 N17.9 385938 improving as aboveFollo wed by Renal inpt., responded well to fluids and holding diuretics. Monitor PIECER q wed.Avoid nephrotoxi cs Chronic hyponatremia 503 22723 E87.1 9775 Meds adjusted in hosp. with improvemen t in levels. much improved as abovehosp rec low sodium diet for ascites, however with hyponatrem ia will cont regular carb consistent dietCont1. 5 L/d FRCMP q wed. x 3Consult renal prn Schizoaffe ctive disorder 76538803 F25.9 42263288 Cont:Benzt ropine 0.5 mg q hsHaldol 10 mg bidMelaton in 3 mg q hs prnCurrent ly off lamictal due to renal issuesRefe r to Psych prnMonitor mood, behaviors. Impaired cognition 68607 6002 R41.89 106030 see aboveinvok e HCPpleasan tly confused Chronic schizoaffective schizophrenia 153933316 F25.9 778116 maintained onHaldol 10 mg bid, consider decreasing if lethargicb enztropine 0.5 mg qhsupdate psych with concerns [id number] Mallorie Watson NP [address] [address] 05/07/2025 08:23:15 05/13/2025 13:33:58 Abdominal pain 20013915 R10.9 R11.10 R19.7 75621980 fu with GI and monitor ascites.GI rec [...] *next paracentes is on 05/14 scheduled at [facility] need them scheduled frequently Cirrhosis of liver 44211 007 K74.60 R18.8 [id number] workup in hosp ruled out additional causes, [...] rder due to type 2 diabetes mellitus 892267292 E11.29 Z79.4 06745331 BS controlled 100s-200s, occ 300s (of note has hx of low BS at times)cont Tresiba 58 U sc qd, monitor for need to decrease is eating lessLispro SSICarb Control low sodium dietmonito r need Pancytopenia 468887052 D 61.818 60880 continues with pancytopen ia as above likely related to cirrhosis and splenomega ly (severe splenomega ly up to 16.[address])monitor cbc weekly, of note h/h trending downmonito r for need to transfuse <7monitor s/s of bleeding Hepatic encephalopathy 09803638 K76.82 9599812 overall confusion remains butCont:La ctulose 30 ml/20 gm tid - goal 3 soft stools dailycontR ifaximin 550 mg bidCMP, NH3 q wed. Asthenia 51509654 R53.1 66712 generalize d deconditio gumaro due to acute illness and hospitaliz ation.pt ot eval and treat, she continues to work with [employer] orSolarusoal is to return home. Acute kidney injury 1466 9001 N17.9 972604 improving as aboveFollo wed by Renal inpt., responded well to fluids and holding diuretics. Monitor PIECER q wed.Avoid nephrotoxi cs Chronic hyponatremia 503 88403 E87.1 9775 Meds adjusted in hosp. with improvemen t in levels. much improved as abovehosp rec low sodium diet for ascites, however with hyponatrem ia will cont regular carb consistent dietCont1. 5 L/d FRCMP q wed. x 3Consult renal prn Schizoaffe ctive disorder 58219928 F25.9 [id number] Cont:Benzt ropine 0.5 mg q hsHaldol 10 mg bidMelaton in 3 mg q hs prnCurrent ly off lamictal due to renal issuesRefe r to Psych prnMonitor mood, behaviors. Impaired cognition 09144 6002 R41.89 035917 see aboveinvok e HCPpleasan tly confused Chronic schizoaffective schizophrenia 101890691 F25.9 524811 maintained onHaldol 10 mg bid, consider decreasing if lethargicb enztropine 0.5 mg qhsupdate psych with concerns [id number] Mallorie Watson NP [address] [address] 05/17/2025 13:26:31 05/18/2025 11:06:16 Cirrhosis of liver 00754810 K74.60 R18.8 [id number] workup in hosp ruled out additional causes, [...] rder due to type 2 diabetes mellitus 198178241 E11.29 Z79.4 09887797 BS controlled 100s-200s, occ 300s (of note has hx of low BS at times)cont Tresiba 58 U sc qd, monitor for need to decrease is eating lessLispro SSICarb Control low sodium dietmonito r need Pancytopenia 076041951 D 61.818 00974 platets remains stable low, no s/s of bleedingco ntinues with pancytopen ia as above likely related to cirrhosis and splenomega ly (severe splenomega ly up to 16.[address])monitor cbc weekly, of note h/h trending downmonito r for need to transfuse <7monitor s/s of bleeding Hepatic encephalopathy 74324303 K76.82 8230695 overall confusion remains butCont:sp ironolacto ne 50mg po qdLactulos e 30 ml/20 gm tid - goal 3 soft stools dailyRifax imin 550 mg bidCMP, NH3 q wed. Asthenia 75697822 R53.1 58075 generalize d deconditio gumaro due to acute illness and hospitaliz ation.pt ot eval and treat, she continues to work with otcontsupp ortive careGoal is to return home. Acute kidney injury 1466 9001 N17.9 966938 currently on lasixcontM onitor CMP q wed.Avoid nephrotoxi cs Chronic hyponatremia 503 64365 E87.1 9775 Meds adjusted in hosp. with improvemen t in levels. much improved as abovehosp rec low sodium diet for ascites, however with hyponatrem ia will cont regular carb consistent dietCont1. 5 L/d FRCMP q wed. x 3Consult renal prn Schizoaffe ctive disorder 97692845 F25.9 31277290 Cont:Benzt ropine 0.5 mg q hsHaldol 10 mg bidMelaton in 3 mg q hs prnCurrent ly off lamictal due to renal issuesRefe r to Psych prnMonitor mood, behaviors. Impaired cognition 07654 6002 R41.89 609087 see aboveinvok e HCPpleasan tly confused Chronic schizoaffective schizophrenia 611528098 F25.9 240417 mood pleasantco ntHaldol 10 mg bid, consider [...] Crowley Member ID Guarantor Name 04/26/2025 1 [place]: [facility] [id number] Catherine Petersons 03/22/2025 1 [facility] (PPO) Catherine Stern [id number] Catherine Petersons 03/22/2025 1 [place] [facility] Catherine Petesrons [id number] Catherine Petersons Notes Date Note Type Note [...] showing nonischemic RBBB, trop x2 neg for [place]. [place] is was not suggestive of dissection or [...] 64-year-old female with hx above presented to [facility] due to vomiting and abdominal distention, weight [...] code, has HCP Mallorie Watson, KJ [address] [facility], [address], [place], [address], [facility] - [employer] 04/14/2025 10:58:55 04/19/2025 text/html Patient is a [...] in past month Tono Nicole MD [address] [facility], [address], [place], [address], [facility] [employer] 04/19/2025 15:48:13 04/26/2025 text/html ROS as noted in the HPI Catherine is a 64 yo female, seen for a 30 day routine rounding visit. PMH: DM2, obese, schizoaffective d/o, decompensated liver cirrhosis with portal hypertension, ascites, splenomegaly, anemia with hemorrhoidal bleeds, thrombocytopenia, scoliosis She is a 64 yo lady, admitted to [facility] 03/17/25 from [facility] for continued care and rehab after a brief hosp. due to OLIVIA, encephalopathy. PMH: DM2, obese, schizoaffective d/o, liver cirrhosis, anemia, thrombocytopenia, scoliosis, hemorrhoids She presented to [facility] 03/02/25 due to elevated BS, lethargy, and [...] showed no drainable ascites. She returned to [facility] because of abdominal pain, and she had [...] and creatinine were stable. She presented to [facility] ER on 04/14 due to vomiting and [...] has just returned from her appt in [facility]. She is eating, drinking and moving her bowels per staff. She remains with very large abdomen and weight gain at 195 lbs, was 186 lbs last week, and 170 lbs in march. Overall, remains on notable decline. No s/s of bleeding or bruising noted. YAÑEZ: low fall riskFull code, has HCPHCP invoked Mallorie Watson NP [address] [facility], [address], [place], [address], [facility] - [employer] 04/26/2025 23:06:18 05/07/2025 text/html ROS as noted in the HPI Pt is seen for acute rounding visit. PMH: DM2, obese, schizoaffective d/o, decompensated liver cirrhosis with portal hypertension, ascites, splenomegaly, anemia with hemorrhoidal bleeds, thrombocytopenia, scoliosis She is a 64 yo lady, admitted to [facility] 03/17/25 from [facility] for continued care and rehab after a [...] 05/14 at the [facility] app[facility] available [facility] SHe is aware of the date. Her [...] has HCPHCP invoked Mallorie Watson NP [address] [facility], [address], [place], [address], [facility] [employer] [facility] 05/07/2025 09:09:15 05/17/2025 text/html ROS as noted in the HPI Pt is seen for acute rounding visit. PMH: DM2, obese, schizoaffective d/o, decompensated liver cirrhosis with portal hypertension, ascites, splenomegaly, anemia with hemorrhoidal bleeds, thrombocytopenia, scoliosis She is a 64 yo lady, admitted to [facility] 03/17/25 from [facility] for continued care and rehab after a [...] has HCPHCP invoked Mallorie Watson NP [address] [facility], [address], [place], [address], [facility] - [facility] 05/17/2025 20:32:35 OBGyn Episode No OBEpisode recorded.
--- OUTSIDE RECORDS SUMMARY | 2025-08-27 15:48 | XMS_ITS | Clinical Summary ---
Author Organization [employer] Address [address] [facility] [address] [place] [address] Care Team Providers Care Die Grinder Name Role Phone Ana Davis BENCH LAY OUT TECHNICIAN Primary Care Provider [phone] Andree Ulloa PharmD Unavailable [phone] Allergies Active Allergy Reactions Criticality Noted [...] Mammo: Ordered 11/2022 Pap: Unknown. Referred to [facility] CERTIFIED 11/2022 for PMB. Ultrasound pending C-scope: 2019, precancerous polyps Cirrhosis of liver (CMS/HCC) 04/21/2018 Overview (09/09/2023): Decompensated QURESHI cirrhosis MELD-Na: 16. Followed by [facility]. Paracentesis q. 2 weeks. EGD 2018 [...] 5:20 PM EDT): I left message with [facility] requesting provider-provider consult [...] plan. I will reach out directly to [facility] for update and [...] Needs new psychiatrist. On wait list at [facility] [place]. Referred to [facility] psychopharm clinic 11/2022 Assessment & Plan [...] from psych provider. Catherine was referred to [facility] on 03/31. Information given to patient with [facility]'s contact number to request intake for psychotherapy and psychiatry services. During today's consult, Catherine was engaged with active, reflective listening. Reviewed and assessed for risk, current stressors and triggers using open-ended questions. Pt agreed with plan to contact [facility] and will update clinician if extra support is needed for MH services. PLAN: (check all that apply) Continue with current services (defined as services in the past 12 months) . Pt was referred to [facility] on 03/31. clinician provided information and printed out letter with [facility] contact numbers. clinician will be available if requested during next consult. Assessment & Plan (02/12/2024 9:53 AM EDT): PLAN: (check all that apply) New/Additional Services needed Off-site services for Behavioral Health Integration Plan External OP therapy referral and OP psychiatry Referral Patient Self Plan Patient to reach out to [facility] team as needed, Comply with [...] 3-Significant loss of protective sensation. Eye Exam:Pending [facility] referral Lipid panel: 11/2022 ASCVD: 6.7% [...] Plan (09/09/2023 4:10 PM EST): POC BS [facility] s/p 10 units lispro in [...] sliding scale as prescribed STAT referral to [facility] DM educator Lab Results Component Value [...] and do not with to [facility] Resolved Problems Problem Noted Date Diagnosed Date Resolved Date Hypervolemia 10/17/2022 02/14/2023 Noncompliance with treatment regimen 04/01/2022 12/07/2022 Nonalcoholic steatohepatitis 04/21/2018 03/10/2023 Encounters * This document contains information received from the source organization and may not represent a complete record from that organization. Date Type Department Care Team Description 08/27/2025 Patient Outreach [facility] CHC MED & PEDS [address] [place] [address] Ana Davis FNP Pre-visit Planning (HDF scheduled. ) 08/03/2025 Telephone [facility] OPTOMETRY [address] [place] [address] Elisabeth Melchor, OD 07/16/2025 Telephone [facility] MEDICINE [address] [place] [address] Ana Davis FNP No Show 07/16/2025 Orders Only GENERIC EXTERNAL DATA DEPARTMENT Provider, Generic External Data 07/15/2025 Telephone [facility] MEDICINE [address] [place] [address] Ana Davis FNP chart prep 07/14/[address] [address] Ana Davis FNP 07/08/2025 Orders Only GENERIC EXTERNAL DATA DEPARTMENT Provider, Generic External Data 07/08/2025 Patient Outreach [facility] MEDICINE [address] [place] [address] Ana Davis FNP Pre-visit Planning ((Unable to reach for PVP screening, LVM) to be completed in office ) 06/28/2025 Orders Only GENERIC EXTERNAL DATA DEPARTMENT Provider, Generic External Data 06/16/2025 Patient Outreach [facility] MEDICINE [address] [place] [address] [facility] Transition Of Care (Tcm) (HDF unscheduled ) 06/15/[address] [facility] MED & PEDS [address] [place], [place] [phone] [facility] 06/10/2025 Patient Outreach [facility] MEDICINE [address] [place] [address] [facility] 06/03/[address] [facility] MED & PEDS [address] [place], [place] [phone] [facility] 05/28/2025 Orders Only GENERIC EXTERNAL DATA [...] Description 09/07/2025 2:00 PM EST Office Visit [address] [address] Nettie aGrcia MD [address] [place] [address] 09/13/2025 2:30 PM EST Medication Management [address] [address] Harrison Salazar, PharmD [address] [place] [address] 09/20/2025 10:00 AM EST Office Visit [address] [address] Ana Davis FNP [address] [place] [address] Health Maintenance Due Date Last Done Comments [...] PM EDT Narrative 06/11/2025 8:40 AM EDT [place] [address] Ultrasound Report Signed Patient: Catherine Stern MR#: [id number] : 1960 Acct:[id number] Age/Sex: 64 / F ADM Date: 07/16/25 Loc: HO.[facility] Attending Dr: Tono Nicole MD Ordering Physician: Malolrie Watson NP Date of Service: 07/16/25 Procedure(s): US abdomen limited Accession Number(s): [id number] cc: Mallorie Watson HELPER MARBLE FINISHER; [facility] Reason for Exam: ASCITES EXAMINATION: US ABDOMEN [...] 07/16/25 1420 DD/ 1400 TD/TT: 07/16/25 1417 Rig Builder Helper: Procedure Note Donotuseinterpreter, Image - 07/16/[address] [address] Ultrasound Report Signed Patient: Maki Stern#: [id number] : 1960cct:[id number] Age/Sex: 64 / FADM Date: 07/16/25 Loc: HO.[facility] Attending Dr: Tono Nicole MD Ordering Physician: Mallorie Watson NP Date of Service: 07/16/25 Procedure(s): US abdomen limited Accession Number(s): [id number] cc: Mallorie Watson HELPER MARBLE FINISHER; [facility] Reason for Exam: ASCITES EXAMINATION: US ABDOMEN [...] 07/16/25 1420 DD/ 1400 TD/TT: 07/16/25 1417 Rig Builder Helper: us [facility] External Provider IMG US PROCEDURES Edited Result - Final * (ABNORMAL) Glucose, Whole Blood (07/16/2025 1:33 PM EDT) Only the most recent of3 resultswithin the time period is included. Glucose, Whole Blood 197(H) 60 - 115 mg/dL [facility] Comment:METER #: [id number] 07/16/2025 1:33 PM EDT 07/16/2025 1:36 PM EDT Generic External Data Provider LAB BLOOD ORDERAB LES Final Result [facility] [address] [place] [phone] * (ABNORMAL) Prothrombin Time-INR (07/08/2025 10:57 AM EDT) [facility] Prothrombin Time 14.2(H) 10.9 - 12.4 SEC [facility] INTERNATIONAL NORM RATIO 1.2(H) 0.9 - 1.1 [facility] Comment:INTERNATIONAL NORMAL IZED RATIO (INR) REFERENCE [...] Provider LAB BLOOD ORDERAB LES Final Result [facility] [address] [place] [phone] * (ABNORMAL) CBC (07/08/2025 10:57 AM EDT) [facility] White Blood Count 3.0(L) 4.8 - 10.8 X10*3/uL [facility] Red Blood Count 2.82(L) 4.20 - 5.50 X10*6/uL [facility] Hemoglobin 8.9(L) 12.0 - 16.0 g/dl [facility] Hematocrit 25.9(L) 37.0 - 47.0 % [facility] Mean Corpuscular Volume 91.8 80.0 - 98.0 fL [facility] Mean Corpuscular Hemoglobin 31.6 27.0 - 33.0 pg [facility] Mean Corpuscular HGB Conc 34.4 31.0 - 35.0 g/dl [facility] Red Cell Distribution Width 14.4 11.0 - 16.0 % [facility] Platelet Count 22(L) 160 - 400 X10*3/uL [facility] Mean Platelet Volume 11.9 9.4 - 12.3 fL [facility] NRBC Pct Auto 0.0 0.0 - 0.2 /100WBC [facility] NRBC Abs Auto 0.000 0.0 - 0.012 X10*3/uL [facility] 07/08/2025 10:5 7 AM EDT 07/08/2025 10:57 AM EDT Generic External Data Provider LAB BLOOD ORDERAB LES Final Result Performing Organization Address [facility]/ZIP Co de Phone Number [facility] [address] [place] [phone] * B Type Natriuretic Peptide (BNP) (07/08/2025 10:57 AM EDT) Pathologist [facility] B Type Natriuretic Peptide 51 <100 pg/mL [facility] Blood Venous blood specimen / Unknown 07/08/2025 10:57 AM EDT 07/08/2025 10:57 AM EDT [facility] BENCH LAY OUT TECHNICIAN LAB BLOOD ORDERABLES Final Re sult Performing Organization Address [facility]/ZIP Co de Phone Number [facility] [address] [place] [phone] * (ABNORMAL) Comprehensive Metabolic Panel (07/08/2025 10:57 AM EDT) Pathologist [facility] Sodium 136 135 - 145 mmol/L [facility] Potassium 4.5 3.3 - 5.1 mmol/L [facility] Chloride 110(H) 96 - 108 mmol/L [facility] Carbon Dioxide 23 22 - 29 mmol/L [facility] Anion Gap 8(L) 12 - 20 [facility] Urea Nitrogen (BUN) 31(H) 9 - 16 mg/dL [facility] Creatinine, Serum 0.98 0.5 - 1.4 mg/dL [facility] Estimated Glomerular Filt Rate 57 [facility] Comment:Chronic Kidney Disea se: Estimated GFR < 60 mL/min/1.06w9Hreyay Kidney Disease: Estimated GFR < 15 mL/min/1.73m2 Glucose 237(H) 60 - 115 mg/dL [facility] Calcium 8.6 8.4 - 10.2 mg/dL [facility] Bilirubin, Total 0.7 0.0 - 1.0 mg/dL [facility] Aspartate Amino Transferase 41(H) 5 - 31 U/L [facility] Alanine Aminotransferase 24 0 - 31 U/L [facility] Total Protein 6.8 6.5 - 8.0 g/dL [facility] Albumin Level 3.0(L) 3.5 - 5.0 g/dL [facility] Alkaline Phosphatase 151(H) 39 - 117 U/L [facility] 07/08/2025 10:5 7 AM EDT 07/08/2025 10:57 AM EDT us Generic External Data Provider LAB BLOOD ORDERAB LES Final Result Performing Organization Address City/State/[facility] Co de Phone Number [facility] [address] [place] [phone] * US Abdomen Complete (06/28/2025 10:44 AM EDT) Anatomical Region Laterality Modality Abdomen Ultrasound 06/28/2025 10:4 4 AM EDT Narrative 06/28/2025 1:02 PM EDT [address] [address] Ultrasound Report Signed Patient: Catherine Stern MR#: [id number] : 1960 Acct:[id number] Age/Sex: 64 / F ADM Date: 06/28/25 Loc: HO.[facility] Attending Dr: Tono Nicole MD Ordering Physician: Bobbi Roldan MD Date of Service: 06/28/25 Procedure(s): US abdomen complete Accession Number(s): [id number] cc: Ana Davis BENCH LAY OUT TECHNICIAN; Bobbi Roldan MD Reason for Exam: K74.60 [...] 06/28/25 1300 DD/ 1044 TD/TT: 06/28/25 1057 Rig Builder Helper: Procedure Note Donotuseinterpreter, Image - 06/28/2025 [place] [address] Ultrasound Report Signed Patient: Alicia SternnMJanie#: [id number] : 1960cct:[id number] Age/Sex: 64 / FADM Date: 06/28/25 Loc: [facility] Attending Dr: Tono Nicole MD Ordering Physician: Bobbi Roldan MD Date of Service: 06/28/25 Procedure(s): US abdomen complete Accession Number(s): [id number] cc: [facility]; Bobbi Roldan MD Reason for Exam: K74.60 [...] 06/28/25 1300 DD/ 1044 TD/TT: 06/28/25 1057 Rig Builder Helper: us [facility] External Provider IMG US PROCEDURES Edited Result - Final * US guided abdominal paracentesis (05/28/2025 9:31 AM EDT) Anatomical Region Laterality Modality Abdomen Ultrasound 05/28/2025 9:31 AM EDT Narrative 05/28/2025 2:16 PM EDT [address] [address] Ultrasound Report Signed Patient: Catherine Stern MR#: [id number] : 1960 Acct:[id number] Age/Sex: 64 / F ADM Date: 05/28/25 Loc: [facility] Attending Dr: Mallorie Watson NP Ordering Physician: Mallorie Watson NP Date of Service: 05/28/25 Procedure(s): US paracentesis abd w/image Accession Number(s): [id number] cc: Mallorie Watson HELPER MARBLE FINISHER; [facility] BENCH LAY OUT TECHNICIAN EXAMINATION: US GUIDED PARACENTESIS CLINICAL INFORMATION: Ascites. [...] 05/28/25 1414 DD/ 0931 TD/TT: 05/28/25 1049 Rig Builder Helper: [facility] Procedure Note Donotuseinterpreter, Image - 05/28/[address] [address] Ultrasound Report Signed Patient: Alicia SternnMR#: [id number] : 1960cct:[id number] Age/Sex: 64 / FADM Date: 05/28/25 Loc: HO.[facility] Attending Dr: Mallorie Watson NP Ordering Physician: Mallorie Watson NP Date of Service: 05/28/25 Procedure(s): US paracentesis abd w/image Accession Number(s): [id number] cc: Mallorie Watson HELPER MARBLE FINISHER; [facility] EXAMINATION: US GUIDED PARACENTESIS CLINICAL [...] 05/28/25 1414 DD/ 0931 TD/TT: 05/28/25 1049 Rig Builder Helper: [facility] External Provider IMG US PROCEDURES Final Result * (ABNORMAL) POCT HGB A1C (02/12/2025 2:34 PM EDT) Hemoglobin A1C 10.4(A) 4.0 - 6.0 % [employer] Lot # [id number] Lot# Expiration Date 560 Blood 02/12/2025 2:34 PM EDT [facility] BENCH LAY OUT TECHNICIAN POINT OF CARE TEST ENTER/EDIT ORDERABLES Final Result * Lipid Panel, Standard (08/31/2024 11:55 AM EST) Triglycerides 53 <150 mg/dL [facility] Comment:Desirable Triglyceri de: less than 150 mg/dLBorderline High Triglyceride 150-199 mg/dLHigh Triglyceride: 200-499 mg/dLVery High Triglyceride: greater than or equal to 5OO mg/dL Cholesterol 132 <200 mg/dL [facility] Comment:Desirable Cholestero l: less than 200 mg/dLBorderline High Cholesterol: 200-239 mg/dLHigh Cholesterol: greater than 239 mg/dL LDL Cholesterol Calculated 74 <100 mg/dL [facility] Comment:Desirable LDL: less than 100 mg/dLNear Optimal/Above Optimal LDL: 110- 129 mg/dLBorderline High LDL: 130-159 mg/dLHigh LDL: 160-189 mg/dLVery High LDL: greater than or equal to 190 mg/dL HDL Cholesterol 48 >40 mg/dL [facility] Comment:Desirable HDL: great er than 40 mg/dL Note: This HDL assay may give artificially low results in patients with liver disease. Blood Venous blood specimen / Unknown 08/31/2024 11:55 AM EST 08/31/2024 1:07 PM EST [facility] LAB BLOOD ORDERABLES Final Re sult [facility] [address] [place] [phone] * Hepatitis C Antibody with Reflex to HCV, RNA, Quantitative, Real-Time PCR (12/03/2022 11:57 AM EST) Hepatitis C Antibody NON-REACT LAURA NON-REACT ALURA [employer] [place] [facility] Index 0.18 <1.00 [facility] [place] [facility] Comment: HCV antibody was non-reactive. There is no laboratory evidence of HCV infection. In most cases, no further action is required. However, if recent HCV exposure is suspected, a test for HCV RNA (test code 89743) is suggested. For additional information please refer to http://education.Attentio/faq/KAH05i6 (This link is being provided for informational/ educational purposes only.) Blood Venous blood specimen / Unknown 12/03/2022 11:57 AM EST 12/03/2022 11:58 AM EST Narrative [facility] - 12/04/2022 2:01 AM EST FASTING:NO FASTING: NO [facility] BENCH LAY OUT TECHNICIAN LAB BLOOD ORDERABLES Final Re sult FRANCIA Perez [address], [place] [address] [facility] [place] [facility] [address] [facility], ([address]) [place] [address] * HIV-1/2 Antigen and Antibodies, Fourth Generation, with Reflexes (12/03/2022 11:57 AM EST) HIV Antigen/Antibody, 4th Generation NON-REAC TIVE NON-REAC TIVE [facility] [place] [facility] Comment: HIV-1 antigen and HIV-1/HIV-2 antibodies [...] purpose. For additional information please refer to http://education.ROBAUTO.GoTable/faq/MQP689 (This link is being provided for informational/ educational purposes only.) The performance of this assay has not been clinically validated in patients less than 2 years old. Blood Venous blood specimen / Unknown 12/03/2022 11:57 AM EST 12/03/2022 11:58 AM EST Narrative [facility] - 12/04/2022 2:01 AM EST FASTING:NO FASTING: NO [facility] BENCH LAY OUT TECHNICIAN LAB BLOOD ORDERABLES Final Re sult FRANCIA Perez [address], [place] [address] [facility] [place] [facility] [address] [facility], ([address]) [place] [address] * DIGITAL BILATERAL SCREEN 1 (08/17/2019 4:20 PM EDT) Anatomical Region Laterality Modality Breast Bilateral Mammography 08/17/2019 4:20 PM EDT Narrative 08/17/2019 4:22 PM EDT Refer to the Notes tab for result details [facility] Procedure: DIGITAL BILATERAL SCREEN 1 Procedure Note Provider, MD Paulo - 01/12/2023 Refer to the Notes tab for result details [facility] Procedure: DIGITAL BILATERAL SCREEN 1 Yash Arredondo BENCH LAY OUT TECHNICIAN IMG BI PROCEDURES Final Result from Last 3 Months or Most Recently Relevant to Health Maintenance Insurance [employer] C3 Care Teams Die Grinder Relationship Specialty Start Date End Date Ana Davis FNP [address] [place] [phone] PCP - General Family Medicine 04/05/22 Andree Ulloa PharmD [address] [place] [phone] Pharmacist Internal Medicine 05/09/23 Flavia Segundo Industrial Relations ManagerHamper Maker 10/10/23 Gabrielle Fitch Industrial Relations ManagerHamper Maker 11/05/24 [facility] [employer] 02/06/25
--- OUTSIDE RECORDS SUMMARY | 2025-08-27 15:48 | XMS_ITS | Clinical Summary ---
Author Organization [facility] Address [address] [place] [address] Phone Care Team Providers Care Date Puller Name Role Phone Ysah Arredondo NP Primary Care Provider [phone] Allergies Active Allergy Reactions Criticality Noted Date [...] Decompensated QURESHI cirrhosis MELD-Na: 16. Followed by [facility]. Paracentesis q. 2 weeks. EGD 2019 with grade II varices. Colonoscopy 2019 with polyps removed. Tubular adenoma present. Lactulose 2-3x/day for hepatic encephalopathy with goal 2-3 BM's per day. On propranolol 30mg b.I.d for varices. Lasix 100mg daily and sironolactione 150mg for ascites. Thrombocytopenia (CMS/HCC V24) 04/21/2018 Surgical History Surgery Date Site/Laterality Comments OTHER SURGICAL HISTORY N/A PROCEDURE: [place] ABDOM PARACENTESIS DX/THER W/IMAGING GUIDANCE Medical History [...] mmol/L LAB CHEMISTRY METHOD 11/24/2024 8:52 PM [facility] Potassium 4.0 3.5 - 5.5 mmol/L LAB CHEMISTRY METHOD 11/24/2024 8:52 PM [facility] Chloride 103 96 - 110 mmol/L LAB CHEMISTRY METHOD 11/24/2024 8:52 PM [facility] CO2 25 21 - 32 mmol/L LAB CHEMISTRY METHOD 11/24/2024 8:52 PM [facility] Anion Gap 4 3 - 11 LAB CHEMISTRY METHOD 11/24/2024 8:52 PM [facility] Glucose 353(H) 70 - 100 mg/dL LAB CHEMISTRY METHOD 11/24/2024 8:52 PM [facility] BUN 23 5 - 25 mg/dL LAB CHEMISTRY METHOD 11/24/2024 8:52 PM [facility] Creatinine 0.93 0.50 - 1.10 mg/dL LAB CHEMISTRY METHOD 11/24/2024 8:52 PM [facility] eGFR 69 >=60 mL/min/1. 73m2 LAB CHEMISTRY METHOD 11/24/2024 8:52 PM [facility] Comment:Calculation based on the Chronic Kidney Disease Epidemiology Collaboration (CKD-EPI) equation refit without adjustment for race. BUN/Creatinine Ratio 24.7 LAB CHEMISTRY METHOD 11/24/2024 8:52 PM [facility] Calcium 8.3(L) 8.5 - 10.5 mg/dL LAB CHEMISTRY METHOD 11/24/2024 8:52 PM [facility] AST (SGOT) 29 10 - 42 unit/L LAB CHEMISTRY METHOD 11/24/2024 8:52 PM [facility] ALT (SGPT) 29 10 - 60 unit/L LAB CHEMISTRY METHOD 11/24/2024 8:52 PM [facility] Alkaline Phosphatase 188(H) 42 - 121 unit/L LAB CHEMISTRY METHOD 11/24/2024 8:52 PM [facility] Total Protein 6.6 6.0 - 8.0 g/dL LAB CHEMISTRY METHOD 11/24/2024 8:52 PM [facility] Albumin 2.4(L) 3.2 - 5.0 g/dL LAB CHEMISTRY METHOD 11/24/2024 8:52 PM [facility] Total Bilirubin 0.9 0.0 - 1.4 mg/dL LAB CHEMISTRY METHOD 11/24/2024 8:52 PM [facility] Blood Venous blood specimen / Unknown Venipuncture / Unknown 11/24/2024 8:01 PM EST 11/24/2024 8:11 PM EST us Rigo Genao MD LAB BLOOD ORDERABLES Final Result [facility] [address] [place] [address], * Lipid panel with reflex to direct LDL (10/13/2024 5:24 AM EST) Cholesterol 125 0 - 200 mg/dL LAB CHEMISTRY METHOD 10/13/2024 6:43 AM [facility] Triglycerides 66 0 - 150 mg/dL LAB CHEMISTRY METHOD 10/13/2024 6:43 AM [facility] HDL 48 >=40 mg/dL LAB CHEMISTRY METHOD 10/13/2024 6:43 AM [facility] LDL Calculated 64 0 - 100 mg/dL LAB CHEMISTRY METHOD 10/13/2024 6:43 AM [facility] VLDL Cholesterol Luke 13.2 mg/dL LAB CHEMISTRY METHOD 10/13/2024 6:43 AM [facility] Non HDL Chol. (LDL+VLDL) 77 <145 mg/dL LAB CHEMISTRY METHOD 10/13/2024 6:43 AM [facility] Chol/HDL Ratio 2.6 0.0 - 4.4 LAB CHEMISTRY METHOD 10/13/2024 6:43 AM [facility] Blood Venous blood specimen / Unknown Venipuncture / Unknown 10/13/2024 5:24 AM EST 10/13/2024 6:07 AM EST Salena RODRIGUEZ LAB BLOOD ORDERABLES Fi nal Result [facility] [address] [place] [address], from Last 3 Months or Most Recently Relevant to Health Maintenance Insurance MEDICAID - [place] Advance Directives Documents on File Type Date Recorded Patient Online Advertising Manager Expl anation Health Care Decision (hx) 12/28/2023 [...] DIRECTIVE Health Care Decision (hx) 12/11/2020 AD BRANLTEY DIRECTIVE Health Care Decision (hx) 12/11/2020 AD [...] currently active code status orders. Care Teams Date Puller Relationship Specialty Start Date End Date Yash Arredondo NP [address] [place] [address] PCP - General 09/15/13
--- OUTSIDE RECORDS SUMMARY | 2025-08-27 15:48 | XMS_ITS | Encounter Summary ---
Author Organization [employer] Address [address] [facility] 7t [place] [address] Care Team Providers Care Stock Letterer Name Role Phone Ana Davis MULTIPLE SPINDLE ROUTER OPERATOR Primary Care Provider [phone] Andree Ulloa PharmD Unavailable [phone] Jacquie Sarkar Unavailable Jacquie Sarkar Unavailable Reason for Referral * Consultation (Routine) - Authorized Specialty Diagnoses / Procedures Referred By Ivelisse segura Referred To Contact Pharmacy Diagnoses Type 2 diabetes mellitus without complication, with long-term current use of insulin (HCC) Catalina Mendez MD [address] [place] [address] Phone: tel: fax: Referral ID Status Reason Start Date Expiration Date Visits Requested Visits Authorized [id number] Authorized Consult and Treat 02/23/2025 02/23/2026 6 6 Encounter Details Date Type Department Care Team (Late st Contact Info) Description 02/23/2025 Orders Only [facility] [address] [place], [place] [phone] Catalina Mendez MD [address] [place], [place] [phone] Type 2 diabetes mellitus without complication, with [...] t he electric, gas, oil or water [employer] threatened to shut off services in your [...] Description 09/07/2025 2:00 PM EST Office Visit [facility] [address] [place] [address] Nettie Garcia MD [address] [place] [address] 09/13/2025 2:30 PM EST Medication Management [address] [address] Harrison Salazar PharmD [address] [facility] [place], [place] [phone] 09/20/2025 10:00 AM EST Office Visit [facility] [address] [facility] [place] [phone] Ana Davis [facility] [address] [place] [address] Scheduled Referrals Name Type Priority Associated Diagnoses Orde r Schedule Referral to Pharmacy CD Outpatient Referral Routine Type 2 diabetes mellitus without complication, with long-term current use of insulin ([facility]) Ordered: 02/23/2025 documented as of [...] Component 10.4(02/13/20 25 2:34 PM EDT) No Andere Ulloa PharmD documented as of this encounter Visit Diagnoses Diagnosis Type 2 diabetes mellitus without complication, with long-term current use of insulin ([facility])- Primary documented in this encounter Additional Health Concerns Assessment Noted Time PHQ-9 Depression Total Score: 10 025 1:44 PM EST documented as of this encounter Care Teams Stock Letterer Relationship Specialty Start Date End Date Ana Davis [facility] [place] [place], [place] [phone] PCP - General Family Medicine 04/05/22 Andree Ulloa PharmD [address] [place], [place] [phone] Pharmacist Internal Medicine 05/09/23 Jacquie Sarkar 05/20/25 06/03/25 Jacquie Sarkar 06/10/25 06/15/25 Flavia Segundo Entry Level Financial AnalystRestaurant Crew 10/10/23 Gabrielle Fitch Entry Level Financial AnalystRestaurant Crew 11/05/24 [facility] [employer] 02/06/25 documented as of this encounter
--- OUTSIDE RECORDS SUMMARY | 2025-08-27 15:48 | XMS_ITS | Encounter Summary ---
Author Organization [employer] Address [address] [facility] 7t [place] [address] Care Team Providers Care Infrastructure Solutions Architect Name Role Phone [facility] Primary Care Provider [phone] Andree Ulloa PharmD Unavailable [phone] Maude Dennis RN Unavailable [phone] Jacquie Sarkar Unavailable Jacquie Sarkar Unavailable Reason for Visit * Reason Comments Med Refill Encounter Details Date Type Department Care Team (Late st Contact Info) Description 10/03/2023 Refill [facility] [address] [place], [place] [phone] [facility] [address] [place] [address] Tardive dyskinesia Social History Tobacco Use Types [...] the past 12 months, has t he [employer], gas, oil or water company threatened to [...] Description 09/07/2025 2:00 PM EST Office Visit [address] [address] Nettie Garcia MD [address] [place] [address] 09/13/2025 2:30 PM EST Medication Management [address] [address] Harrison Salazar, PharmD [address] [place] [address] 09/20/2025 10:00 AM EST Office Visit [address] [address] Ana Davis FNP [address] [place] [address] documented as of this encounter Goals Goal Patient Goal Type Associated Problems Recent Progress Patient-Stated? Author Check your blood sugar as directed General On track(08/28/2 023 4:12 PM EDT) No Jacob Llanos [...] documented as of this encounter Care Teams Infrastructure Solutions Architect Relationship Specialty Start Date End Date Ana Davis FNP [address] [place] [address] PCP - General Family Medicine 04/05/22 Andree Ulloa PharmD [address] [place] [address] Pharmacist Internal Medicine 05/09/23 Maude Dennis RN [address] [place] [address] Rack Room WorkerRoll Mechanic 08/27/24 12/22/24 Jacquie Sarkar 05/20/25 06/03/25 Jacquie Sarkar 06/10/25 06/15/25 Flavia Segundo Real Estate Closing CoordinatorRoll Mechanic 10/10/23 [employer] 08/14/24 02/11/25 Gabrielle Fitch Real Estate Closing CoordinatorRoll Mechanic 11/05/24 [employer] 02/06/25 documented as of this encounter
--- OUTSIDE RECORDS SUMMARY | 2025-08-27 15:49 | XMS_ITS | Encounter Summary ---
Author Organization [employer] Address [address] [facility] 7t [place] [address] Care Team Providers Care Senior Clinical Data Manager Name Role Phone Ana Davis ELECTRONICS TECHNICIAN Primary Care Provider [phone] Andree Ulloa PharmD Unavailable [phone] Maude Dennis RN Unavailable [phone] Jacquie Sarkar Unavailable Jacquie Sarkar Unavailable Encounter Details Date Type Department Care Team (Late st Contact Info) Description 01/21/2023 Telephone [facility] [address] [place] [address] Kimberly Donaldson LPN Social History Tobacco Use [...] Department Care Team (Late Contact Info) Description 09/07/2025 2:00 PM EST Office Visit [facility] [address] [place] [address] Nettie Garcia MD [address] [place] [address] 09/13/2025 2:30 PM EST Medication Management [address] [address] Harrison Salazar, ChelyD [address] [place] [address] 09/20/2025 10:00 AM EST Office Visit [address] [address] [address] documented as of this encounter Visit Diagnoses Not on filedocumented in this encounter Additional Health Concerns Assessment Noted Time PHQ-9 Depression Total Score: 0 12/03/19 10:53 AM EST documented as of this encounter Care Teams Senior Clinical Data Manager Relationship Specialty Start Date End Date [facility] [address] [place] [address] PCP - General Family Medicine 04/05/22 Andree Ulloa, ChelyD [address] [place] [address] Pharmacist Internal Medicine 05/09/23 Maude Dennis, MARQUITA [address] [place] [address] Restaurant ManagerSlag Mixer 08/27/24 12/22/24 Jacquie Sarkar 05/20/25 06/03/25 Jacquie Sarkar 06/10/25 06/15/25 Flavia Segundo Application Project LeaderSlag Mixer 10/10/23 [employer] 08/14/24 02/11/25 Gabrielle Fitch Application Project LeaderSlag Mixer 11/05/24 [employer] 02/06/25 documented as of this encounter
--- OUTSIDE RECORDS SUMMARY | 2025-08-27 15:49 | XMS_ITS | Encounter Summary ---
Author Organization [employer] Address [address] [facility] 7t [place] [address] Care Team Providers Care Pointer Helper Name Role Phone [facility] Primary Care Provider [phone] Andree Ulloa PharmD Unavailable [phone] Maude Dennis RN Unavailable [phone] Jacquie Sarkar Unavailable Jacquie Sarkar Unavailable Reason for Visit * Reason Onset Date Comments requesting a call back 02/05/2023 Encounter Details Date Type Department Care Team ([facility] st Contact Info) Description 02/05/2023 Telephone [facility] [address] [place], [place] [phone] [facility] [address] [place] [address] requesting a call back Social History Tobacco [...] . States needs to return them to [facility] . documented in this encounter Plan of Treatment Upcoming Encounters Date Type Department Care Team (Late st Contact Info) Description 09/07/2025 2:00 PM EST Office Visit [address] [address] Nettie Garcia MD [address] [place] [address] 09/13/2025 2:30 PM EST Medication Management [address] [address] Harrison Salazar, ChelyD [address] [place] [address] 09/20/2025 10:00 AM EST Office Visit [address] [address] Ana Davis [address] [address] documented as of this encounter Visit Diagnoses Not on filedocumented in this encounter Additional Health Concerns Assessment Noted Time PHQ-9 Depression Total Score: 0 12/03/19 23 10:53 AM EST documented as of this encounter Care Teams Pointer Helper Relationship Specialty Start Date End Date Ana Davis FNP [address] [place] [address] PCP - General Family Medicine 04/05/22 Andree Ulloa, PharmD [address] [place] [address] Pharmacist Internal Medicine 05/09/23 Maude Dennis, MARQUITA [address] [facility] [place] [address] Automation Control IntegratorLockstitch Front Maker 08/27/24 12/22/24 Jacquie Sarkar 05/20/25 06/03/25 Jacquie Sarkar 06/10/25 06/15/25 Flavia Segundo Adjunct Writing InstructorLockstitch Front Maker 10/10/23 [employer] 08/14/24 02/11/25 Gabrielle Fitch Adjunct Writing InstructorLockstitch Front Maker 11/05/24 [employer] 02/06/25 documented as of this encounter
--- OUTSIDE RECORDS SUMMARY | 2025-08-27 15:49 | XMS_ITS | Encounter Summary ---
Author Organization [employer] Address [address] [facility] 7t [place] [address] Care Team Providers Care Roofer Apprentice Name Role Phone Ana Davis DIRECT CARE WORKER Primary Care Provider [phone] Andree Ulloa PharmD Unavailable [phone] Jacquie Sarkar Unavailable Jacquie Sarkar Unavailable Encounter Details Date Type Department Care Team (Late st Contact Info) Description 05/14/2025 Orders Only [facility] [address] [place], [place] [phone] Maye Ortiz NP [address] [place], [place] [phone] Social History Tobacco Use Types Packs/Day Years [...] Description 09/07/2025 2:00 PM EST Office Visit [address] [address] Nettie Garcia MD [address] [place] [address] 09/13/2025 2:30 PM EST Medication Management [address] [address] Harrison Salazar, PharmD [address] [place] [address] 09/20/2025 10:00 AM EST Office Visit [address] [address] Ana Davis FNP [address] [place] [address] documented as of this encounter Goals Goal [...] documented as of this encounter Care Teams Roofer Apprentice Relationship Specialty Start Date End Date Ana Davis FNP [address] [place] [address] PCP - General Family Medicine 04/05/22 Andree Ulloa PharmD [address] [place] [address] Pharmacist Internal Medicine 05/09/23 Jacquie Sarkar 05/20/25 06/03/25 Jacquei Sarkar 06/10/25 06/15/25 Flavia Segundo Band Saw OperatorShipping And Receiving Material Handler 10/10/23 Gabrielle Fitch Band Saw OperatorShipping And Receiving Material Handler 11/05/24 [employer] 02/06/25 documented as of this encounter
--- OUTSIDE RECORDS SUMMARY | 2025-08-27 15:49 | XMS_ITS | Encounter Summary ---
Author Organization [employer] Address [address] [place] [facility] 7t [place] [address] Care Team Providers Care Dining Room Cashier Name Role Phone [facility] Primary Care Provider [phone] Andree Ulloa PharmD Unavailable [phone] Maude Dennis RN Unavailable [phone] Jacquie Sarkar Unavailable Jacquie Sarkar Unavailable Reason for Visit * Reason Onset Date Comments Med Refill 08/05/2024 Encounter Details Date Type Department Care Team (Late st Contact Info) Description 08/05/2024 Telephone [facility] [address] [place], [place] [phone] [facility] [address] [place] [address] Med Refill Social History Tobacco Use Types [...] the past 12 months, has t he [employer], gas, oil or water [employer] threatened to shut off services in your [...] from pt requesting a HDF appt. Hospital: [facility] Date of admission: 06/23/24 Discharge date: 08/13/24 Diagnosed: Multiple fractures of the ribs documented in this encounter Plan of Treatment Upcoming Encounters Date Type Department Care Team (Late st Contact Info) Description 09/07/2025 2:00 PM EST Office Visit [facility] [address] [place] [address] Nettie Garcia MD [address] [place] [address] 09/13/2025 2:30 PM EST Medication Management [facility] [address] [place] [address] Harrison Salazar, PharmD [address] [place] [address] 09/20/2025 10:00 AM EST Office Visit [facility] [address] [place] [address] Ana Davis [facility] [address] [place] [address] documented as of this encounter Goals Goal [...] documented as of this encounter Care Teams Dining Room Cashier Relationship Specialty Start Date End Date Ana Davis [facility] [address] [place] [address] PCP - General Family Medicine 04/05/22 Andree Ulloa PharmD [address] [place] [address] Pharmacist Internal Medicine 05/09/23 Maude Dennis, MARQUITA [address] [place] [address] Bar Machine OperatorTelecommunications Manager 08/27/24 12/22/24 Jacquie Sarkar 05/20/25 06/03/25 Jacquie Sarkar 06/10/25 06/15/25 Flavia Segundo Gauge InspectorTelecommunications Manager 10/10/23 [employer] 08/14/24 02/11/25 Gabrielle Fitch Gauge InspectorTelecommunications Manager 11/05/24 [employer] 02/06/25 documented as of this encounter
--- NOTE | 2025-08-27 16:45 | ED.CHESTPAIN ---
HPI - Chest Pain General Chief Complaint: Chest Pain Stated Complaint: sob,chest pain Time Seen by Provider: 08/27/25 15:05 History of Present Illness HPI narrative: Patient is a 65-year-old female from long term presented today because she had chest pain. Patient actually denies that she has chest pain but she feels somewhat short of breath. Has a history of paracentesis history of liver disease. Denies any fever chills. Denies any diaphoresis. Denies any blood in the stool. Denies any focal weakness. Denies any traveling. Patient has been in the long term. There is no coughing or congestion or upper respiratory symptoms. Related Data Home Medications ?Medication ?Instructions ?Recorded ?Confirmed benztropine 0.5 mg tablet 0.5 mg PO BEDTIME 08/17/20 06/28/25 haloperidol 5 mg tablet 10 mg PO BID 08/17/20 06/28/25 insulin lispro 100 unit/mL See Protocol subcut TID 08/17/20 06/28/25 subcutaneous pen (Humalog KwikPen (U-100) Insulin) flash glucose sensor (FreeStyle #1 ea 05/01/23 06/28/25 Gurpreet 2 Sensor kit) insulin degludec 200 unit/mL (3 62 unit subcut BEDTIME 05/01/23 06/28/25 mL) subcutaneous pen (Tresiba FlexTouch U-200 insulin) blood-glucose meter (FreeStyle #1 ea 06/17/24 06/28/25 [place] Lite kit) ferrous gluconate 240 mg (27 mg 240 mg PO DAILY@0730 04/26/25 06/28/25 iron) tablet levofloxacin 250 mg tablet 250 mg PO DAILY 04/26/25 06/28/25 magnesium hydroxide 400 mg/5 mL 30 ml PO BEDTIME PRN constipation 04/26/25 06/28/25 oral suspension (Milk of Magnesia) #1 sennosides 8.6 mg capsule (senna) 8.6 mg PO BID PRN Constipation 04/26/25 06/28/25 acetaminophen 325 mg tablet 650 mg PO Q4H PRN Fever Or Pain 06/09/25 06/28/25 acetaminophen 650 mg rectal 650 mg ID Q4H PRN Fever Or Pain 06/09/25 06/28/25 suppository bisacodyl 10 mg rectal suppository 10 mg ID DAILY PRN constipation #2 06/09/25 06/28/25 lactulose 10 gram/15 mL (15 mL) 30 g PO TID 06/09/25 06/28/25 oral solution melatonin 3 mg tablet 3 mg PO BEDTIME PRN Sleep 06/09/25 06/28/25 naloxone 4 mg/actuation nasal 4 mg intranasal Q3M PRN overdose 06/09/25 06/28/25 spray (Narcan) sodium phosphates 19 gram-7 118 ml ID DAILY PRN constipation #3 06/09/25 06/28/25 gram/118 mL enema (Fleet Enema) spironolactone 50 mg tablet 50 mg PO DAILY 06/09/25 06/28/25 Previous Rx's ?Medication ?Instructions ?Recorded blood pressure monitor (Blood #1 ea 10/29/22 Pressure Kit) furosemide 40 mg tablet 60 mg (1.5 x 40 mg) PO DAILY 90 11/27/24 days #135 tabs rifaximin 550 mg tablet 550 mg PO BID 90 days #180 tabs 11/27/24 Allergies Allergy/AdvReac Type Severity Reaction Status Date / Time Penicillins Allergy Unknown HIVES Verified 08/27/25 13:31 Review of Systems Review of Systems: Positive shortness of breath no chest pain no diaphoresis. No abdominal pain. [facility] Past Medical History Attestation statement: The following information was validated with the patient. Medical History Seizure Schizoaffective disorder Diabetes Thrombocytopenia Hyperkalemia Esophageal varices determined by endoscopy Cirrhosis of liver with ascites Parkinson disease Hypertension Diabetes Surgical History Hx of esophagogastroduodenoscopy Hx of colonoscopy Family History Family History Father Colon cancer Mother Diabetes Colon polyps Daughter Lupus Social History Social History Household Members: Family Housing: Apartment Housing Other:: Duplex Are you a primary critical care rn to a significant other at home: No Do you presently have visiting nurse or other home services: No Alcohol intake: former Patient Tobacco Use Status: Former Tobacco user Tobacco use type: Cigarette Smoked in Last 30 Days: Yes e-Cigarette/Vaping Use: Former Use Second Hand Smoke Exposure: No Use of substances other than those prescribed or required for medical reasons: No Advance Directives: No Advance Directives Information Provided: Yes Patient : No service: No Current occupational status: unemployed and disabled Physical Exam Exam: Exam: Appearance: Alert. Oriented X3. No acute distress. Eyes: Pupils equal, round and reactive to light. ENT: Pharynx normal. Neck: Normal inspection. Neck supple. No lymph nodes noted. No crepitus CVS: Normal heart rate and rhythm. Pulses normal. Normal S1 and S2 Respiratory: No respiratory distress. Breath sounds normal. No Wheezing. No rales Abdomen: Soft and nontender. No rigidity. No distention. good BS x4 Skin: Skin warm and dry. Normal skin color. Normal skin turgor. Extremities: No lower extremity edema. Neurovascular intact to all extremities. No Lacerations. No Rash Neuro: Oriented X 3. No motor deficit. No sensory deficit. Moving all extermities. No slurred speech Vital Signs: Vital Signs: Last Vital Signs Temp 97.7 F 08/27/25 16:51 Pulse 82 08/27/25 19:11 Resp 22 H 08/27/25 19:11 BP 150/64 H 08/27/25 19:11 Pulse Ox 100 08/27/25 19:11 O2 Del Method Room Air 08/27/25 19:11 BMI result Body Mass Index 36.2 Medications Administered Discontinued Medications Generic Name Dose Route Start Last Admin Trade Name Freq PRN Reason Stop Dose Admin Sodium Chloride 1,000 mls @ 999 mls/hr 08/27/25 16:45 08/27/25 19:07 Ns IV 08/27/25 17:45 Infused .Q1H1M JOSEMANUEL Infusion Iohexol 100 ml 08/27/25 18:45 08/27/25 18:46 Iohexol 350 Mg/Ml 100 Ml Infus..Btl IV 08/27/25 18:46 65 ml ONCE ONE Administration Medical Decision Making Medical Decision Making MDM Narrative: Patient is 65 years old presents today with having nonspecific chest pain and shortness of breath. Patient was seen previously for paracentesis has a known history of liver cirrhosis. There is questionable chest pain noted earlier. She is 65 years old has a long history of thrombocytopenia her platelets came back at 20 but this is baseline. Patient is troponin came back negative. Patient's lipase is normal at 27 there is no evidence for pancreatitis. A CTA of the chest was done to rule out the possibility of blood clots. As patient has a fairly sedentary lifestyle. The CTA was negative for any PE. There is a mass noted in the right lung. I tried to discuss this with patient's daughter. I explained to patient. It has also been mentioned in the previous CT scan. But patient is 65 years old has a history of liver cirrhosis he is a poor historian. Has this mass that is not been follow-up. Elected to admit patient for observation overnight. Further workup. This was relayed to patient via shipping/receiving manager. Will also contact patient's daughter. Differential Diagnosis Differential Diagnoses: The differential diagnosis associated with the presentation includes Congestive heart failure, PE, pneumonia, ACS Admission/Observation Consideration of admission/observation: Escalation of care including admission/observation considered Consult Healthcare Provider Management of the patient was discussed with: Hospitalist (Consulted with hospitalist will admit for observation overnight) Lab Data MDM Lab Attestation statement: I reviewed the patient's lab results. 08/27/25 17:08 08/27/25 17:08 Labs: Lab Results 08/27/25 Range/Units 17:08 WBC 2.9 L (4.8-10.8) X10*3/uL RBC 2.90 L (4.20-5.50) X10*6/uL Hgb 8.9 L (12.0-16.0) g/dl Hct 26.0 L (37.0-47.0) % MCV 89.7 (80.0-98.0) fL MCH 30.7 (27.0-33.0) pg MCHC 34.2 (31.0-35.0) g/dl RDW 14.4 (11.0-16.0) % Plt Count 20 L* (160-400) X10*3/uL MPV 11.1 (9.4-12.3) fL Immature Gran % (Auto) 0.7 H (0.0-0.4) % Neut % (Auto) 66.1 (45-73) % Lymph % (Auto) 15.4 L (20-40) % [place] % (Auto) 10.5 (2-11) % Eos % (Auto) 7.0 H (0-4) % Baso % (Auto) 0.3 (0-2) % Lymph # (Auto) 0.4 L (1.2-4.9) X10*3/uL [place] # (Auto) 0.3 (0.1-1.2) X10*3/uL Eos # (Auto) 0.2 (0.0-0.4) X10*3/uL Baso # (Auto) 0.0 (0.0-0.2) X10*3/uL Abs Immat Gran (auto) 0.02 (0.00-0.03) X10*3/uL Absolute Neuts (auto) 1.9 L (2.0-8.3) x10*3/uL Absolute Nucleated RBC 0.000 (0.0-0.012) X10*3/uL Nucleated RBC % (auto) 0.0 (0.0-0.2) /100WBC Sodium 135 (135-145) mmol/L Potassium 4.5 (3.3-5.1) mmol/L Chloride 111 H (96-108) mmol/L Carbon Dioxide 19 L (22-29) mmol/L Anion Gap 10 L (12-20) BUN 34 H (9-16) mg/dL Creatinine 1.11 (0.5-1.4) mg/dL Estim Creat Clear Calc 53.3 Estimated GFR 49 Random Glucose 145 H (60-115) mg/dL Calcium 8.3 L (8.4-10.2) mg/dL Total Bilirubin 0.7 (0.0-1.0) mg/dL Direct Bilirubin 0.2 (0.0-0.5) mg/dL AST 37 H (5-31) U/L ALT 24 (0-31) U/L Alkaline Phosphatase 145 H (39-117) U/L Troponin I High Sens 3.3 (<3.5-17.0) ng/L NT-Pro-B Natriuret Pep 56.3 (<300) pg/mL Total Protein 6.2 L (6.5-8.0) g/dL Albumin 2.9 L (3.5-5.0) g/dL Lipase 27 (8-78) U/L Independent Interpretation I performed an independent interpretation of an: EKG (My interpretation of her EKG showed a sinus rhythm heart rate is 80 there is a right bundle-branch block ID is normal QTC is normal there is T-wave inversion over lead 3 the findings are old.) and CT Scan (Right sided mass noted on CTA no PE) Radiology Impression Discussion of test interpretation with radiology: I have reviewed the radiologist's reading. External Record Review External record reviewed: Inpatient record Chronic Conditions Liver cirrhosis schizoaffective disorder Social Determinants Patient?s care significantly limited by Social Determinants of Health including: Problems related to primary support group Discharge Plan Discharge Clinical Impression: Thrombocytopenia, Cirrhosis of liver Patient Disposition: Admitted As Inpatient Print Language: Pashto
[2025-08-27 17:12] LABS: MANUAL DIFF FLAG NO
[2025-08-27 17:26] LABS: Hematocrit 26.0 % (37.0-47.0); Hemoglobin 8.9 g/dl (12.0-16.0); Imm Gran Abs Auto 0.02 X10*3/uL (0.00-0.03); Imm Gran Pct Auto 0.7 % (0.0-0.4); Lymphocytes Absolute Auto 0.4 X10*3/uL (1.2-4.9); Mean Corpuscular HGB Conc 34.2 g/dl (31.0-35.0); Mean Corpuscular Hemoglobin 30.7 pg (27.0-33.0); Mean Corpuscular Volume 89.7 fL (80.0-98.0); NRBC Abs Auto 0.000 X10*3/uL (0.0-0.012); NRBC Pct Auto 0.0 /100WBC (0.0-0.2); Red Blood Count 2.90 X10*6/uL (4.20-5.50); White Blood Count 2.9 X10*3/uL (4.8-10.8)
[2025-08-27 17:28] LABS: Alanine Aminotransferase 24 U/L (0-31); Albumin Level 2.9 g/dL (3.5-5.0); Alkaline Phosphatase 145 U/L (39-117); Anion Gap 10 (12-20); Aspartate Amino Transferase 37 U/L (5-31); Blood Urea Nitrogen 34 mg/dL (9-16); Calcium 8.3 mg/dL (8.4-10.2); Carbon Dioxide 19 mmol/L (22-29); Chloride 111 mmol/L (96-108); Creatinine Clr Calc Pharmacy 53.3; Estimated Glomerular Filt Rate 49; Lipase 27 U/L (8-78); Potassium 4.5 mmol/L (3.3-5.1); Sodium 135 mmol/L (135-145); Total Protein 6.2 g/dL (6.5-8.0)
[2025-08-27 17:34] LABS: NT Pro B Type Natriuretic Pept 56.3 pg/mL (<300); Troponin-I High Sensitivity 3.3 ng/L (<3.5-17.0)
[2025-08-27 17:38] LABS: Platelet Count 20 X10*3/uL (160-400)
[2025-08-27] MEDS: iohexoL 350 MG/ML 100 ML INFUS..BTL IV (18:46)
--- NOTE | 2025-08-27 19:11 | MHC.EDTECH ---
Ambulated patient to bathroom, She has a shuffle but steady gait. She was able to be independent in her sandro care after bathroom use.
--- NOTE | 2025-08-27 20:05 | PC.NURSE ---
EKG was done, this RN saw the paper copy. was not documented/crossed over into computer.
--- NOTE | 2025-08-27 21:40 | PHA.MEDREC ---
Pharmacy Consult ? Medication Reconciliation Pharmacy has completed the medication reconciliation. Utilized list from [facility].
[2025-08-27 21:56] LABS: Appearance Urine Cloudy; Glucose Urine UA Negative (Negative); PH 6.0 (5.0-9.0); Specific Gravity - Urine 1.015 (1.005-1.025); UMIC TRIGGER UACC YES
[2025-08-27 22:02] LABS: UACC Culture Trigger YES
[2025-08-27 22:06] LABS: IDNOW Serial# 55D5AD1C; Influenza B2 Negative (Negative)
[2025-08-27 22:07] LABS: Procalcitonin 0.09 ng/mL
[2025-08-27 22:07] LABS: COVID-19 Test Negative (Negative); IDNOW Serial# 58CA691E
[2025-08-27 22:41] LABS: Glucose, Whole Blood 136 mg/dL (60-115)
--- NOTE | 2025-08-27 23:08 | P.HPHOSP_ITS ---
History of Present Illness Date of Service: 08/27/25 Attending physician on admission: Ron Buck Chief Complaint: chest pain, SOB Patient is a 65-year-old female with a past medical history significant for CKD 2, T2 dm, cirrhosis, dementia and schizophrenia, who presented to the ED from [facility] due to chest pain and shortness of breath. The patient reported the her symptoms feel similar to when she needs a paracentesis. Her last paracentesis is unknown, abdominal ultrasound in June suggestive of not enough fluid for paracentesis. The patient is a very poor historian, responds yes initially to every question and then changes her response to no is not oriented to place or time. an accurate history was unable to be obtained at this time, roll former was present. Review of Systems 2 Review of Systems: Yes Unobtainable due to mental condition and Unobtainable due to mental status [facility] Medical History (Updated 08/27/25 @ 23:24 by Estelle Sandoval PA-C) Seizure Schizoaffective disorder Diabetes Thrombocytopenia Hyperkalemia Esophageal varices determined by endoscopy Cirrhosis of liver with ascites Parkinson disease Hypertension Diabetes Cognitive capacity: HCP invoked per SNF paperwork Family History Father Colon cancer Mother Diabetes Colon polyps Daughter Lupus Surgical History Hx of esophagogastroduodenoscopy Hx of colonoscopy Social History Household Members: Family Housing: Apartment Housing Other:: Duplex Are you a primary family member caretaker to a significant other at home: No Do you presently have visiting nurse or other home services: No Alcohol intake: former Patient Tobacco Use Status: Former Tobacco user Tobacco use type: Cigarette Smoked in Last 30 Days: Yes e-Cigarette/Vaping Use: Former Use Second Hand Smoke Exposure: No Use of substances other than those prescribed or required for medical reasons: No Advance Directives: No Advance Directives Information Provided: Yes Patient : No service: No Current occupational status: unemployed and disabled Meds Allergies Allergy/AdvReac Type Severity Reaction Status Date / Time Penicillins Allergy Unknown HIVES Verified 08/27/25 13:31 Active Medications: Current Medications Acetaminophen (Acetaminophen 325 Mg Tablet) 650 mg PO Q6H PRN PRN Reason: Pain, Mild 1-3,fever,headache Calcium Carbonate (Calcium Carbonate 750 Mg Tab.Chew) 750 mg PO Q4H PRN PRN Reason: Heartburn Dextrose (Dextrose 50 % 25 Gm/50 Ml Syringe) 25 gm IVPUSH Q15M PRN; Protocol PRN Reason: per Hypoglycemia Standing Ord. Glucose (Glucose Gel 15 Gm Gel..Gram.) 15 gm PO Q15M PRN; Protocol PRN Reason: per Hypoglycemia Standing Ord. Ceftriaxone Sodium 1 gm/ (Sodium Chloride) 50 mls @ 100 mls/hr IV Q24H [facility] Last Admin: 08/27/25 22:33 Dose: 100 mls/hr Doxycycline Hyclate 100 mg/ (Sodium Chloride) 250 mls @ 166.67 mls/hr IV Q12H [facility] Insulin Glargine (Insulin Glargine,Hum.Rec.Anlog 100 Unit/Ml 10 Ml Vial) 34 unit SUBCUT BEDTIME [facility] Insulin Human Lispro (Insulin Lispro 100 Unit/Ml 3 Ml Vial) 0 unit SUBCUT QIDACHS [facility]; Protocol Magnesium Hydroxide (Milk Of Magnesia 30 Ml Oral.Susp) 30 ml PO DAILY PRN PRN Reason: Constipation Melatonin (Melatonin 3 Mg Tablet) 6 mg PO BEDTIME PRN PRN Reason: Insomnia Ondansetron HCl (Ondansetron Hcl 4 Mg/2 Ml Vial) 4 mg IVPUSH Q8H PRN PRN Reason: Nausea and Vomiting Oxycodone HCl (Oxycodone Hcl Immed Release 5 Mg Tablet) 5 mg PO Q6H PRN PRN Reason: Pain, Severe (Pain Scale 7-10) Sodium Chloride (0.9 % Sodium Chloride Flush 3 Ml Syringe) 3 ml IVFLUSH QSHIFT [facility] Tramadol HCl (Tramadol Hcl 50 Mg Tablet) 50 mg PO Q6H PRN PRN Reason: Pain, Moderate(Pain Scale 4-6) Home Medications ?Medication ?Instructions ?Recorded ?Confirmed ?Last Taken ?Type benztropine 0.5 mg tablet 0.5 mg PO BEDTIME 08/17/20 1 10/27/24 Unknown History haloperidol 5 mg tablet 10 mg PO BEDTIME 08/17/2005/14/25 08:00 History insulin lispro 100 unit/mL See Protocol subcut TID 08/27/25 06/28/25 History subcutaneous pen (Humalog KwikPen (U-100) Insulin) flash glucose sensor (FreeStyle #1 ea 05/01/23 5 Unknown History Gurpreet 2 Sensor kit) insulin degludec 200 unit/mL (3 70 unit subcut BEDTIME 05/01/23 08/27/25 05/14/25 08:00 History mL) subcutaneous pen (Tresiba FlexTouch U-200 insulin) blood-glucose meter (FreeStyle #1 ea 06/17/24 06/28/25 Unknown History [place] Lite kit) ferrous gluconate 240 mg (27 mg 240 mg PO DAILY@0730 0 04/26/25 08/27/25 05/14/25 08:00 History iron) tablet levofloxacin 250 mg tablet 250 mg PO DAILY 04/26/2505/14/25 08:00 History magnesium hydroxide 400 mg/5 mL 30 ml PO BEDTIME PRN c onstipation 04/26/25 08/27/25 Unknown History oral suspension (Milk of Magnesia) #1 sennosides 8.6 mg capsule (senna) 8.6 mg PO BID PRN Co nstipation 04/26/25 08/27/25 Unknown History acetaminophen 325 mg tablet 650 mg PO Q4H PRN Fever Or Pain 06/09/25 08/27/25 Unknown History acetaminophen 650 mg rectal 650 mg RI Q4H PRN Fever Or Pain 06/09/25 08/27/25 Unknown History suppository bisacodyl 10 mg rectal suppository 10 mg RI DAILY PRN constipation #2 06/09/25 08/27/25 Unknown History lactulose 10 gram/15 mL (15 mL) 30 g PO TID 06/09/25 1 10/27/24 Unknown History oral solution melatonin 3 mg tablet 3 mg PO BEDTIME PRN Sleep 08/27/25 Unknown History naloxone 4 mg/actuation nasal 4 mg intranasal Q3M PRN overdose 06/09/25 08/27/25 Unknown History spray (Narcan) sodium phosphates 19 gram-7 118 ml RI DAILY PRN consti pation #3 06/09/25 08/27/25 Unknown History gram/118 mL enema (Fleet Enema) spironolactone 50 mg tablet 50 mg PO DAILY 06/09/25 Unknown History haloperidol 5 mg tablet 5 mg PO DAILY 08/27/2508/27 Unknown History Physical Exam 2 Vital Signs and Narrative: Vital Signs: Last Vital Signs Temp 97.7 F 08/27/25 16:51 Pulse 86 08/27/25 21:39 Resp 20 08/27/25 21:39 BP 143/55 H 08/27/25 21:39 Pulse Ox 100 08/27/25 21:39 O2 Del Method Room Air 08/27/25 21:39 BMI result Body Mass Index 36.2 General: Alert, not oriented to place or time, no acute distress, seen with roll former Resp: CTA bilaterally, no crackles or wheezing CVS: S1, S2, RRR GI: +BS, tender left lower quadrant, distended Skin: Warm, dry Neuro: Cranial nerves II-XII grossly intact bilaterally. Motor grossly intact bilaterally Extremities: No pitting edema Psych: confused, not following conversation Results Labs 08/27/25 17:08 08/27/25 17:08 Labs: Laboratory Results - last 24 hr 08/27/25 08/27/25 08/27/25 17:08 21:44 21:45 MCV 89.7 MCH 30.7 MCHC 34.2 RDW 14.4 Plt Count 20 L* MPV 11.1 Immature Gran % (Auto) 0.7 H Neut % (Auto) 66.1 Lymph % (Auto) 15.4 L [place] % (Auto) 10.5 Eos % (Auto) 7.0 H Baso % (Auto) 0.3 Lymph # (Auto) 0.4 L [place] # (Auto) 0.3 Eos # (Auto) 0.2 Baso # (Auto) 0.0 Abs Immat Gran (auto) 0.02 Absolute Neuts (auto) 1.9 L Absolute Nucleated RBC 0.000 Nucleated RBC % (auto) 0.0 Anion Gap 10 L Estim Creat Clear Calc 53.3 Estimated GFR 49 POC Glucose Random Glucose 145 H Calcium 8.3 L Total Bilirubin 0.7 Direct Bilirubin 0.2 AST 37 H ALT 24 Alkaline Phosphatase 145 H Troponin I High Sens 3.3 NT-Pro-B Natriuret Pep 56.3 Total Protein 6.2 L Albumin 2.9 L Lipase 27 Procalcitonin 0.09 Urine Color Yellow Urine Appearance Cloudy Urine pH 6.0 Ur Specific [place] 1.015 Urine Protein Negative Urine Glucose (UA) Negative Urine Ketones Negative Urine Blood Small (1+) H Urine Nitrite Negative Ur Leukocyte Esterase Large (3+) H Urine RBC 6-10 H Urine WBC >50 H Ur Squamous Epith Cells 11-20 Urine Bacteria 4+ Hyaline Casts 0-2 COVID-19 (SHAGGY) Negative COVID-19 Clin Com See Note Influenza Type A (NELSY) Negative Influenza Type B (NELSY) Negative Influenza A & B Note See Note 08/27/25 22:38 MCV MCH MCHC RDW Plt Count MPV Immature Gran % (Auto) Neut % (Auto) Lymph % (Auto) [place] % (Auto) Eos % (Auto) Baso % (Auto) Lymph # (Auto) [place] # (Auto) Eos # (Auto) Baso # (Auto) Abs Immat Gran (auto) Absolute Neuts (auto) Absolute Nucleated RBC Nucleated RBC % (auto) Anion Gap Estim Creat Clear Calc Estimated GFR POC Glucose 136 H Random Glucose Calcium Total Bilirubin Direct Bilirubin AST ALT Alkaline Phosphatase Troponin I High Sens NT-Pro-B Natriuret Pep Total Protein Albumin Lipase Procalcitonin Urine Color Urine Appearance Urine pH Ur Specific [place] Urine Protein Urine Glucose (UA) Urine Ketones Urine Blood Urine Nitrite Ur Leukocyte Esterase Urine RBC Urine WBC Ur Squamous Epith Cells Urine Bacteria Hyaline Casts COVID-19 (SHAGGY) COVID-19 Clin Com Influenza Type A (NELSY) Influenza Type B (NELSY) Influenza A & B Note Imaging Radiologist's Impressions: Impressions Chest X-Ray 08/27/25 16:52 IMPRESSION: Persistent blunting of the right costophrenic angle. This could be related to pleural effusion, atelectasis, and/or scarring. Electronically signed by: John Arciniega MD 08/27/2025 05:00 PM [facility] [place] and Plan (1) Pneumonia: Status: Acute (2) Lung abnormality: Status: Acute (3) Esophageal thickening: Status: Acute (4) Umbilical hernia: Status: Acute Plan Patient is a 65-year-old female with a past medical history significant for CKD 2, T2 dm, cirrhosis, dementia and schizophrenia, who presented to the ED from [facility] due to chest pain and shortness of breath. pneumonia vs lung mass on CT - ceftriaxone and doxycycline - oncology consult - monitor CBC and BMP esophageal thickening on CT vs esophageal varices - GI consult - H+H stable - monitor CBC umbilical hernia on CT, incarceration can not be excluded - CT films reviewed by Dr Reed, no surgery indicated as this is only fat containing and pt is asx hyperchloremic metabolic acidosis - follow BMP pancytopenia, secondary to cirrhosis - at baseline - monitor CBC chest pain - pt denying any chest pain - EKG non-ischemic (difficulties loading into chart, paper EKG reviewed) - trop negative CKD2 - monitor BMP - avoid nephrotoxins T2DM - SSI - diabetic diet - lantus 34U QHS, reduced dose as converted from tresiba cirrhosis - Lasix, spironolactone, lactulose, magnesium Dementia/schizophrenia - benztropine, Haldol full code VTE prophy: SCDs due to thrombocytopenia Patient with pneumonia versus lung mass and c/o SOB, concern for lack of outpatient follow-up, requiring admission least 2 midnight stay for IV antibiotics and further evaluation with specialist consultation. Quality Stroke Does the patient have a stroke diagnosis?: No VTE Prior VTE?: No VTE Risk Level:: Medical - moderate - high VTE Device Contraindication: N/A - Device Ordered VTE Drug Contraindication: Treatment Not Indicated
[2025-08-28] VITALS (9 sets, daily range): BP systolic 100–139; BP diastolic 43–65; PULSE 82–89; RESP 12–22; TEMP 36.1–36.7; O2SAT 93–100; BMI 35.2
[2025-08-28 04:11] LABS: Imm Gran Abs Auto 0.01 X10*3/uL (0.00-0.03); Imm Gran Pct Auto 0.4 % (0.0-0.4); MANUAL DIFF FLAG SCAN; Mean Corpuscular Hemoglobin 31.0 pg (27.0-33.0); NRBC Abs Auto 0.000 X10*3/uL (0.0-0.012); NRBC Pct Auto 0.0 /100WBC (0.0-0.2); PLT CLUMP 1; SCAN SMEAR FLAG 1
[2025-08-28 04:13] LABS: Hematocrit 24.6 % (37.0-47.0); Hemoglobin 8.5 g/dl (12.0-16.0); Lymphocytes Absolute Auto 0.4 X10*3/uL (1.2-4.9); Mean Corpuscular HGB Conc 34.6 g/dl (31.0-35.0); Mean Corpuscular Volume 89.8 fL (80.0-98.0); Red Blood Count 2.74 X10*6/uL (4.20-5.50)
[2025-08-28 04:29] LABS: Alanine Aminotransferase 21 U/L (0-31); Albumin Level 2.7 g/dL (3.5-5.0); Alkaline Phosphatase 119 U/L (39-117); Anion Gap 11 (12-20); Aspartate Amino Transferase 35 U/L (5-31); Blood Urea Nitrogen 29 mg/dL (9-16); Calcium 8.1 mg/dL (8.4-10.2); Carbon Dioxide 17 mmol/L (22-29); Chloride 114 mmol/L (96-108); Creatinine Clr Calc Pharmacy 63.6; Estimated Glomerular Filt Rate > 60; Potassium 4.3 mmol/L (3.3-5.1); Sodium 138 mmol/L (135-145); Total Protein 5.8 g/dL (6.5-8.0)
[2025-08-28 04:54] LABS: White Blood Count 2.4 X10*3/uL (4.8-10.8)
[2025-08-28 04:59] LABS: Platelet Count 18 X10*3/uL (160-400)
[2025-08-28 07:00] LABS: Glucose, Whole Blood 143 mg/dL (60-115)
--- NOTE | 2025-08-28 07:09 | PM.GICN ---
History of Present Illness Data of Consult Service Date: 08/28/25 Requesting physician: Estelle Sandoval Primary Care Provider: KAROLINA Huff Reason for consult: cirrhosis, ?varices vs esophageal carcinoma 65 YF with CKD 2, T2 dm, cirrhosis, dementia and schizophrenia, seen at [facility] [place] [facility] on 08/27/25 from [facility] due to chest pain and shortness of breath. The patient reported the her symptoms feel similar to when she needs a paracentesis. Her last paracentesis by IR was on 05/14/25 and 4.1 L of clear yellowish fluid was drained from the right lower quadrant. Abdominal ultrasound in June suggestive of not enough fluid for paracentesis. The patient has dementia and is a poor historian and unable to provide an accurate history. She is known to me from past hospitalizations. 08/27/[address] SCAN SHOWED: 1. Re-identified right lower lobe posterior dependent consolidation, 4.5 x 2.9 x 7 cm; round pneumonia suspected. 2. Cirrhosis 3. Splenomegaly, 16 cm. 4. Peripancreatic edema; subacute pancreatitis and/or mesenteric panniculitis. Clinical correlation suggested. 5. Umbilical hernia, 1.9 cm defect with 5 cm herniation and mural thickening; incarceration can not be excluded. Clinical correlation suggested. PAST GI HISTORY BY REVIEW OF MEDICAL RECORDS: initially diagnosed with cirrhosis 3-4 years ago incidentally on ultrasound findings which was done for abdominal discomfort. Thought to be likely secondary to QURESHI / NAFLD. no significant history of alcohol use disorder. Hep serologies negative, however Hep B core antibody not available. Early 2021, patient developed ascites. Since then, she has had paracentesis multiple times. She also had a recent admission to [facility] last month for hepatic encephalopathy, and has also been started on lactulose since then. She also had a thoracentesis from the right side in the same admission. Per records 5.2L removed by para and 1500ml removed from thora. Fluid studies N/A. Relevant medications: Propranolol 10 mg t.i.d. Furosemide 40 mg once daily Spironolactone 100 mg once daily Lactulose 30 mL t.i.d. March 2019: EGD LA grade A esophagitis, grade II varices Colonoscopy: Fair prep. 4 polyps including 10 mm sigmoid colon polyp. Path: T.A in sigmoid colon. Review of Systems Review of Systems: Yes Unobtainable due to mental condition Neurologic: Reports confusion Psychiatric: Psychiatric: Reports confusion [facility] Past Medical History Medical History Seizure Schizoaffective disorder Diabetes Thrombocytopenia Hyperkalemia Esophageal varices determined by endoscopy Cirrhosis of liver with ascites Parkinson disease Hypertension Diabetes Family History Family History Father Colon cancer Mother Diabetes Colon polyps Daughter Lupus Surgical History Surgical History Hx of esophagogastroduodenoscopy Hx of colonoscopy Social History Social History Household Members: None Housing: Shelter Housing Other:: Duplex Are you a primary healthcare science specialist to a significant other at home: No Do you presently have visiting nurse or other home services: No Alcohol intake: former Patient Tobacco Use Status: Former Tobacco user Tobacco use type: Cigarette e-Cigarette/Vaping Use: Former Use Second Hand Smoke Exposure: No service: No Current occupational status: unemployed and disabled Meds Allergies Allergy/AdvReac Type Severity Reaction Status Date / Time Penicillins Allergy Unknown HIVES Verified 08/27/25 13:31 Active Medications: Current Medications Acetaminophen (Acetaminophen 325 Mg Tablet) 650 mg PO Q6H PRN PRN Reason: Pain, Mild 1-3,fever,headache Benztropine Mesylate (Benztropine Mesylate 0.5 Mg Tablet) 0.5 mg PO BEDTIME JOSEMANUEL Last Admin: 08/27/25 23:54 Dose: 0.5 mg Calcium Carbonate (Calcium Carbonate 750 Mg Tab.Chew) 750 mg PO Q4H PRN PRN Reason: Heartburn Dextrose (Dextrose 50 % 25 Gm/50 Ml Syringe) 25 gm IVPUSH Q15M PRN; Protocol PRN Reason: per Hypoglycemia Standing Ord. Ferrous Sulfate (Ferrous Sulfate 324 Mg Tablet.Dr) 324 mg PO DAILY@0730 JOSEMANUEL Furosemide (Furosemide 20 Mg Tablet) 60 mg PO DAILY@0800 JOSEMANUEL; Protocol Glucose (Glucose Gel 15 Gm Gel..Gram.) 15 gm PO Q15M PRN; Protocol PRN Reason: per Hypoglycemia Standing Ord. Haloperidol (Haloperidol 5 Mg Tablet) 5 mg PO DAILY [facility] Haloperidol (Haloperidol 5 Mg Tablet) 10 mg PO BEDTIME [facility] Last Admin: 08/27/25 23:54 Dose: 10 mg Ceftriaxone Sodium 1 gm/ (Sodium Chloride) 50 mls @ 100 mls/hr IV Q24H [facility] Last Infusion: 08/27/25 23:29 Dose: Infused Doxycycline Hyclate 100 mg/ (Sodium Chloride) 250 mls @ 166.67 mls/hr IV Q12H [facility] Last Infusion: 08/28/25 00:45 Dose: Infused Insulin Glargine (Insulin Glargine,Hum.Rec.Anlog 100 Unit/Ml 10 Ml Vial) 34 unit SUBCUT BEDTIME [facility] Insulin Human Lispro (Insulin Lispro 100 Unit/Ml 3 Ml Vial) 0 unit SUBCUT QIDACHS [facility]; Protocol Last Admin: 08/28/25 06:57 Dose: Not Given Lactulose (Lactulose 20 Gm/30 Ml Solution) 30 gm PO TID [facility] Magnesium Hydroxide (Milk Of Magnesia 30 Ml Oral.Susp) 30 ml PO DAILY PRN PRN Reason: Constipation Melatonin (Melatonin 3 Mg Tablet) 6 mg PO BEDTIME PRN PRN Reason: Insomnia Ondansetron HCl (Ondansetron Hcl 4 Mg/2 Ml Vial) 4 mg IVPUSH Q8H PRN PRN Reason: Nausea and Vomiting Oxycodone HCl (Oxycodone Hcl Immed Release 5 Mg Tablet) 5 mg PO Q6H PRN PRN Reason: Pain, Severe (Pain Scale 7-10) Senna (Sennosides 8.6 Mg Tablet) 8.6 mg PO BID PRN PRN Reason: Constipation Sodium Chloride (0.9 % Sodium Chloride Flush 3 Ml Syringe) 3 ml IVFLUSH QSHIFT [facility] Last Admin: 08/28/25 00:01 Dose: Not Given Spironolactone (Spironolactone 25 Mg Tablet) 50 mg PO DAILY [facility]; Protocol Tramadol HCl (Tramadol Hcl 50 Mg Tablet) 50 mg PO Q6H PRN PRN Reason: Pain, Moderate(Pain Scale 4-6) Home Medications ?Medication ?Instructions ?Recorded ?Confirmed ?Last Taken ?Type benztropine 0.5 mg tablet 0.5 mg PO BEDTIME 08/17/20 08/27/25 Unknown History haloperidol 5 mg tablet 10 mg PO BEDTIME 1008/27/25 05/14/25 08:00 History insulin lispro 100 unit/mL See Protocol subcut TID 08/17/20 08/27/25 06/28/25 History subcutaneous pen (Humalog KwikPen (U-100) Insulin) flash glucose sensor (FreeStyle #1 ea 05/01/23 06/28/25 Unknown History Gurpreet 2 Sensor kit) insulin degludec 200 unit/mL (3 70 unit subcut BEDTIME 05/01/23 08/27/25 05/14/25 08:00 History mL) subcutaneous pen (Tresiba FlexTouch U-200 insulin) blood-glucose meter (FreeStyle #1 ea 06/17/24 06/28/25 Unknown History Russell Lite kit) ferrous gluconate 240 mg (27 mg 240 mg PO DAILY@0730 04/26/25 08/27/25 05/14/25 08:00 History iron) tablet levofloxacin 250 mg tablet 250 mg PO DAILY 04/26/25 08/27/25 05/14/25 08:00 History magnesium hydroxide 400 mg/5 mL 30 ml PO BEDTIME PRN constipation 04/26/25 08/27/25 Unknown History oral suspension (Milk of Magnesia) #1 sennosides 8.6 mg capsule (senna) 8.6 mg PO BID PRN Constipation 04/26/25 08/27/25 Unknown History acetaminophen 325 mg tablet 650 mg PO Q4H PRN Fever Or Pain 06/09/25 08/27/25 Unknown History acetaminophen 650 mg rectal 650 mg MN Q4H PRN Fever Or Pain 06/09/25 08/27/25 Unknown History suppository bisacodyl 10 mg rectal suppository 10 mg MN DAILY PRN constipation #2 06/09/25 08/27/25 Unknown History lactulose 10 gram/15 mL (15 mL) 30 g PO TID 06/09/25 08/27/25 Unknown History oral solution melatonin 3 mg tablet 3 mg PO BEDTIME PRN Sleep 06/09/25 08/27/25 Unknown History naloxone 4 mg/actuation nasal 4 mg intranasal Q3M PRN overdose 06/09/25 08/27/25 Unknown History spray (Narcan) sodium phosphates 19 gram-7 118 ml MN DAILY PRN constipation #3 06/09/25 08/27/25 Unknown History gram/118 mL enema (Fleet Enema) spironolactone 50 mg tablet 50 mg PO DAILY 06/09/25 08/27/25 Unknown History haloperidol 5 mg tablet 5 mg PO DAILY 08/27/25 08/27/25 Unknown History Physical Exam Vital Signs: Vital Signs: Last Vital Signs Temp 97.0 F 08/28/25 06:00 Pulse 82 08/28/25 06:00 Resp 20 08/28/25 06:00 BP 100/43 L 08/28/25 06:00 Pulse Ox 100 08/28/25 06:00 O2 Del Method Room Air 08/28/25 06:00 BMI result Body Mass Index 36.2 Const: General: no acute distress and confusion Nutritional Appearance: obese Orientation/consciousness: confusion Limitations: language barrier and other limitations (dementia) HEENT: Head: Yes normal to inspection Ears: hearing grossly normal bilaterally Eyes: Sclerae: sclerae normal Pupils: Equal, round and reactive pupils present Neck: Neck: Yes normal visual inspection Chest: Chest palpation & inspection: normal inspection of the chest Resp: Effort & Inspection: normal respiratory effort Auscultation: clear to auscultation bilaterally Cardio: Palpation: normal PMI Rate: regular rate Rhythm: regular rhythm Heart sounds: S1 normal heart sound present, S2 normal heart sound present and no murmurs GI: Palpation (GI): Soft to palpation, nontender and No hepatosplenomegaly present Auscultation: normal bowel sounds Rectal Exam - Female: deferred Skin: General skin exam: no rashes or lesions noted Neuro: General: gait normal, moves all extremities and confusion Cranial nerves: Yes Equal, round and reactive pupils present Psych: Appearance: grossly normal Mental Status: mental status grossly normal Results Labs 08/29/25 04:29 08/29/25 04:29 Labs: Short CBC 08/27/25 08/28/25 Range/Units 17:08 03:51 WBC 2.9 L 2.4 L (4.8-10.8) X10*3/uL Hgb 8.9 L 8.5 L (12.0-16.0) g/dl Hct 26.0 L 24.6 L (37.0-47.0) % Plt Count 20 L* 18 L* (160-400) X10*3/uL BMP 08/27/25 08/28/25 17:08 03:51 Sodium 135 138 Potassium 4.5 4.3 Chloride 111 H 114 H Carbon Dioxide 19 L 17 L BUN 34 H 29 H Creatinine 1.11 0.93 Calcium 8.3 L 8.1 L Liver Function 08/27/25 08/28/25 Range/Units 17:08 03:51 Total Bilirubin 0.7 0.6 (0.0-1.0) mg/dL Direct Bilirubin 0.2 (0.0-0.5) mg/dL AST 37 H 35 H (5-31) U/L ALT 24 21 (0-31) U/L Alkaline Phosphatase 145 H 119 H (39-117) U/L Albumin 2.9 L 2.7 L (3.5-5.0) g/dL Urine 08/27/25 Range/Units 21:45 Urine Color Yellow Urine Appearance Cloudy Urine pH 6.0 (5.0-9.0) Ur Specific Oscar 1.015 (1.005-1.025) Urine Protein Negative (Neg-Trace) mg/dL Urine Glucose (UA) Negative (Negative) mg/dL Assessment and Plan (1) Cirrhosis of liver: Status: Acute (2) Esophageal thickening: Status: Acute Plan 65 YF with CKD 2, T2 dm, cirrhosis, dementia and schizophrenia, admitted to [facility] [place] on 08/27/25 with chest pain and shortness of breath. The patient reported the her symptoms feel similar to when she needs a paracentesis. Her last paracentesis by IR was on 05/14/25 and 4.1 L of clear yellowish fluid was drained from the right lower quadrant. Abdominal ultrasound in June suggestive of not enough fluid for paracentesis. The patient has dementia and is a poor historian and unable to provide an accurate history. MELD 3.0 score is 11 She is known to me from past hospitalizations. Pt was hospitalized in 05/2025 for anemia and FOBT was positive. She was scheduled for evaluation with an EGD which was canceled due to thrombocytopenia which was unresponsive to transfusion, Since her H+H remained stable she was discharged with plans to transfuse prn for recurrent anemia without endoscopic intervention. 08/27/[address] SCAN SHOWED: 1. Re-identified right lower lobe posterior dependent consolidation, 4.5 x 2.9 x 7 cm; round pneumonia suspected. 2. Cirrhosis 3. Splenomegaly, 16 cm. 4. Peripancreatic edema; subacute pancreatitis and/or mesenteric panniculitis. Clinical correlation suggested. 5. Umbilical hernia, 1.9 cm defect with 5 cm herniation and mural thickening; incarceration can not be excluded. Clinical correlation suggested. RECOMMENDATIONS: 1. Agree with IV antibiotics for suspected pneumonia 2. Lactulose TID for hepatic encephalopathy and titrate to 3 soft stools daily. 3. Continue spironolactone and furosemide for ascites. 4. Pt is not a transplant candidate given dementia and suspected lung mass. 5. Consider transitioning to comfort measures and hospice care if patient's condition deteriorates Procedures Date of Service Date of Service: 08/29/25
[2025-08-28] MEDS: Ferrous Sulfate 324 MG TABLET.DR PO (08:06)
[2025-08-28 08:28] LABS: Glucose, Whole Blood 120 mg/dL (60-115)
--- NOTE | 2025-08-28 09:09 | PC.NURSE ---
assumed care of patient at 0700, patient is awake and alert, oriented to self. patient poc 143, no insulin coverage needed. patient sat up and ate breakfast this morning. VSS. patient medicated per DEC, IV doxy running. patient started yelling out that she was in pain, patient states her hand where the IV was running was hurting her. flushed IV, noted to be patent, slowed infusion down, patient back to resting quietly stated that she was no longer in pain. patient began yelling out again 20 minutes later that her hand was hurting again. IV infusion paused, second IV started in right hand, #22. infusion now running through secondary IV. patient resting quietly in bed.
--- NOTE | 2025-08-28 11:52 | HO.PM.IMPN ---
Subjective Subjective Date of Service: 08/28/25 Physical Exam Vital Signs: Vital Signs: Last Vital Signs Temp 97.0 F 08/28/25 06:00 Pulse 82 08/28/25 06:00 Resp 20 08/28/25 06:00 BP 100/43 L 08/28/25 06:00 Pulse Ox 100 08/28/25 06:00 O2 Del Method Room Air 08/28/25 06:00 BMI result Body Mass Index 36.2 Objective Data Active Medications Acetaminophen (Acetaminophen 325 Mg Tablet) 650 mg PO Q6H PRN PRN Reason: Pain, Mild 1-3,fever,headache Benztropine Mesylate (Benztropine Mesylate 0.5 Mg Tablet) 0.5 mg PO BEDTIME [facility] Last Admin: 08/27/25 23:54 Dose: 0.5 mg Documented By: AINSLEY Calcium Carbonate (Calcium Carbonate 750 Mg Tab.Chew) 750 mg PO Q4H PRN PRN Reason: Heartburn Dextrose (Dextrose 50 % 25 Gm/50 Ml Syringe) 25 gm IVPUSH Q15M PRN; Protocol PRN Reason: per Hypoglycemia Standing Ord. Ferrous Sulfate (Ferrous Sulfate 324 Mg Tablet.Dr) 324 mg PO DAILY@0730 [facility] Last Admin: 08/28/25 08:06 Dose: 324 mg Documented By: RAJENDRA Furosemide (Furosemide 20 Mg Tablet) 60 mg PO DAILY@0800 [facility]; Protocol Last Admin: 08/28/25 08:05 Dose: 60 mg Documented By: RAJENDRA Glucose (Glucose Gel 15 Gm Gel..Gram.) 15 gm PO Q15M PRN; Protocol PRN Reason: per Hypoglycemia Standing Ord. Haloperidol (Haloperidol 5 Mg Tablet) 5 mg PO DAILY [facility] Last Admin: 08/28/25 08:06 Dose: 5 mg Documented By: RAJENDRA Haloperidol (Haloperidol 5 Mg Tablet) 10 mg PO BEDTIME [facility] Last Admin: 08/27/25 23:54 Dose: 10 mg Documented By: AINSLEY Ceftriaxone Sodium 1 gm/ (Sodium Chloride) 50 mls @ 100 mls/hr IV Q24H [facility] Last Infusion: 08/27/25 23:29 Dose: Infused Documented By: AINSLEY Doxycycline Hyclate 100 mg/ (Sodium Chloride) 250 mls @ 166.67 mls/hr IV Q12H [facility] Last Infusion: 08/28/25 11:03 Dose: Infused Documented By: JOSHUA Insulin Glargine (Insulin Glargine,Hum.Rec.Anlog 100 Unit/Ml 10 Ml Vial) 34 unit SUBCUT BEDTIME [facility] Insulin Human Lispro (Insulin Lispro 100 Unit/Ml 3 Ml Vial) 0 unit SUBCUT QIDACHS [facility]; Protocol Last Admin: 08/28/25 06:57 Dose: Not Given Documented By: RAJENDRA Non-Admin Reason: No Insulin Coverage Lactulose (Lactulose 20 Gm/30 Ml Solution) 30 gm PO TID [facility] Last Admin: 08/28/25 08:06 Dose: 30 gm Documented By: RAJENDRA Magnesium Hydroxide (Milk Of Magnesia 30 Ml Oral.Susp) 30 ml PO DAILY PRN PRN Reason: Constipation Melatonin (Melatonin 3 Mg Tablet) 6 mg PO BEDTIME PRN PRN Reason: Insomnia Ondansetron HCl (Ondansetron Hcl 4 Mg/2 Ml Vial) 4 mg IVPUSH Q8H PRN PRN Reason: Nausea and Vomiting Oxycodone HCl (Oxycodone Hcl Immed Release 5 Mg Tablet) 5 mg PO Q6H PRN PRN Reason: Pain, Severe (Pain Scale 7-10) Senna (Sennosides 8.6 Mg Tablet) 8.6 mg PO BID PRN PRN Reason: Constipation Sodium Chloride (0.9 % Sodium Chloride Flush 3 Ml Syringe) 3 ml IVFLUSH QSHIFT [facility] Last Admin: 08/28/25 08:33 Dose: Not Given Documented By: RAJENDRA Non-Admin Reason: IV Running Spironolactone (Spironolactone 25 Mg Tablet) 50 mg PO DAILY [facility]; Protocol Last Admin: 08/28/25 08:06 Dose: 50 mg Documented By: RAJENDRA Tramadol HCl (Tramadol Hcl 50 Mg Tablet) 50 mg PO Q6H PRN PRN Reason: Pain, Moderate(Pain Scale 4-6) Labs 08/28/25 03:51 08/28/25 03:51 Labs: Laboratory Results - last 24 hr 08/27/25 08/27/25 08/27/25 17:08 21:44 21:45 MCV 89.7 MCH 30.7 MCHC 34.2 RDW 14.4 Plt Count 20 L* MPV 11.1 Immature Gran % (Auto) 0.7 H Neut % (Auto) 66.1 Lymph % (Auto) 15.4 L [place] % (Auto) 10.5 Eos % (Auto) 7.0 H Baso % (Auto) 0.3 Lymph # (Auto) 0.4 L [place] # (Auto) 0.3 Eos # (Auto) 0.2 Baso # (Auto) 0.0 Abs Immat Gran (auto) 0.02 Absolute Neuts (auto) 1.9 L Absolute Nucleated RBC 0.000 Nucleated RBC % (auto) 0.0 Smear Tech's Comments Anion Gap 10 L Estim Creat Clear Calc 53.3 Estimated GFR 49 POC Glucose Random Glucose 145 H Calcium 8.3 L Total Bilirubin 0.7 Direct Bilirubin 0.2 AST 37 H ALT 24 Alkaline Phosphatase 145 H Troponin I High Sens 3.3 NT-Pro-B Natriuret Pep 56.3 Total Protein 6.2 L Albumin 2.9 L Lipase 27 Procalcitonin 0.09 Urine Color Yellow Urine Appearance Cloudy Urine pH 6.0 Ur Specific Gary 1.015 Urine Protein Negative Urine Glucose (UA) Negative Urine Ketones Negative Urine Blood Small (1+) H Urine Nitrite Negative Ur Leukocyte Esterase Large (3+) H Urine RBC 6-10 H Urine WBC >50 H Ur Squamous Epith Cells 11-20 Urine Bacteria 4+ Hyaline Casts 0-2 COVID-19 (SHAGGY) Negative COVID-19 Clin Com See Note Influenza Type A (NELSY) Negative Influenza Type B (NELSY) Negative Influenza A & B Note See Note 08/27/25 08/28/25 08/28/25 22:38 03:51 06:56 MCV 89.8 MCH 31.0 MCHC 34.6 RDW 14.3 Plt Count 18 L* MPV 11.6 Immature Gran % (Auto) 0.4 Neut % (Auto) 65.0 Lymph % (Auto) 16.3 L [place] % (Auto) 10.8 Eos % (Auto) 7.1 H Baso % (Auto) 0.4 Lymph # (Auto) 0.4 L [place] # (Auto) 0.3 Eos # (Auto) 0.2 Baso # (Auto) 0.0 Abs Immat Gran (auto) 0.01 Absolute Neuts (auto) 1.6 L Absolute Nucleated RBC 0.000 Nucleated RBC % (auto) 0.0 Smear Tech's Comments VERIFIED Anion Gap 11 L Estim Creat Clear Calc 63.6 Estimated GFR > 60 POC Glucose 136 H 143 H Random Glucose 221 H Calcium 8.1 L Total Bilirubin 0.6 Direct Bilirubin AST 35 H ALT 21 Alkaline Phosphatase 119 H Troponin I High Sens NT-Pro-B Natriuret Pep Total Protein 5.8 L Albumin 2.7 L Lipase Procalcitonin Urine Color Urine Appearance Urine pH Ur Specific Gary Urine Protein Urine Glucose (UA) Urine Ketones Urine Blood Urine Nitrite Ur Leukocyte Esterase Urine RBC Urine WBC Ur Squamous Epith Cells Urine Bacteria Hyaline Casts COVID-19 (SHAGGY) COVID-19 Clin Com Influenza Type A (NELSY) Influenza Type B (NELSY) Influenza A & B Note 08/28/25 08:23 MCV MCH MCHC RDW Plt Count MPV Immature Gran % (Auto) Neut % (Auto) Lymph % (Auto) [place] % (Auto) Eos % (Auto) Baso % (Auto) Lymph # (Auto) [place] # (Auto) Eos # (Auto) Baso # (Auto) Abs Immat Gran (auto) Absolute Neuts (auto) Absolute Nucleated RBC Nucleated RBC % (auto) Smear Tech's Comments Anion Gap Estim Creat Clear Calc Estimated GFR POC Glucose 120 H Random Glucose Calcium Total Bilirubin Direct Bilirubin AST ALT Alkaline Phosphatase Troponin I High Sens NT-Pro-B Natriuret Pep Total Protein Albumin Lipase Procalcitonin Urine Color Urine Appearance Urine pH Ur Specific Gary Urine Protein Urine Glucose (UA) Urine Ketones Urine Blood Urine Nitrite Ur Leukocyte Esterase Urine RBC Urine WBC Ur Squamous Epith Cells Urine Bacteria Hyaline Casts COVID-19 (SHAGGY) COVID-19 Clin Com Influenza Type A (NELSY) Influenza Type B (NELSY) Influenza A & B Note Assessment and Plan (1) Thrombocytopenia: Status: Chronic Plan 65-year-old female with a past medical history significant for CKD 2, T2 dm, cirrhosis, dementia and schizophrenia, who presented to the ED from [facility] due to chest pain and shortness of breath. Pneumonia vs lung mass on CT ceftriaxone and doxycycline oncology consult monitor CBC and BMP esophageal thickening on CT vs esophageal varices GI consult H+H stable monitor CBC umbilical hernia on CT, incarceration can not be excluded CT films reviewed by Dr Reed, no surgery indicated as this is only fat containing hyperchloremic metabolic acidosis follow BMP pancytopenia, secondary to cirrhosis at baseline monitor CBC chest pain pt denying any chest pain EKG non-ischemic (difficulties loading into chart, paper EKG reviewed) trop negative CKD2 monitor BMP avoid nephrotoxins T2DM SSI diabetic diet lantus 34U QHS, reduced dose as converted from tresiba cirrhosis Lasix, spironolactone, lactulose, magnesium Dementia/schizophrenia benztropine, Haldol full code VTE prophy: SCDs due to thrombocytopenia Patient with pneumonia versus lung mass and c/o SOB, concern for lack of outpatient follow-up, requiring admission least 2 midnight stay for IV antibiotics and further evaluation with specialist consultation. Quality Stroke Does the patient have a stroke diagnosis?: No VTE Prior VTE?: No VTE Risk Level:: Medical - moderate - high VTE Device Contraindication: N/A - Device Ordered VTE Drug Contraindication: Treatment Not Indicated
[2025-08-28 13:17] LABS: Glucose, Whole Blood 193 mg/dL (60-115)
[2025-08-28 13:55] LABS: Glucose, Whole Blood 177 mg/dL (60-115)
--- NOTE | 2025-08-28 14:16 | PM.HEMONCCN ---
Subjective - Subjective Chief complaint: Consult for: Lung mass. Patient: new to practice Consult date: 08/28/25 Requesting Physician: Lester. Primary Care Provider: KAROLINA Huff Family Provider: KAROLINA Huff Medical Summary: DIAGNOSIS: LUNG MASS. Program Admin Utilized?: No - Polish Speaking HPI - Consult Narrative Reason for consult: Consult for: Lung mass. Narrative: Catherine Stern is a 65 year old lady, referred by Dr. Batista, on account of a lung mass. She presented to the ED from [facility] due to chest pain and shortness of breath. She is a poor historian, responds yes initially to every question and then changes her response to no. She is not oriented to place or time. Her symptoms felt similar to when she needed a paracentesis. Abdominal ultrasound in June suggestive of not enough fluid for paracentesis. Accurate history was unable to be obtained at this time, mechanical project manager was present. Medical History: Past medical history significant for: CKD 2, T2 dm, Cirrhosis, Dementia and schizophrenia. Seizure Schizoaffective disorder Diabetes Thrombocytopenia Hyperkalemia Esophageal varices determined by endoscopy Cirrhosis of liver with ascites Parkinson disease Hypertension Diabetes Cognitive capacity: HCP invoked per SNF paperwork Family History: Father Colon cancer Mother Diabetes Colon polyps Daughter Lupus Surgical History: Hx of esophagogastroduodenoscopy Hx of colonoscopy Social History: Household Members: Family Housing: Apartment Housing Other:: Duplex Are you a primary child care leader to a significant other at home: No Do you presently have visiting nurse or other home services: No Alcohol intake: former Patient Tobacco Use Status: Former Tobacco user Tobacco use type: Cigarette Review of Systems Unobtainable due to mental condition and Unobtainable due to mental status Oncology Screenings - ECOG Performance Status ECOG Performance Status: 2 [facility] Medical History: Medical History (Last Reviewed 08/28/25 @ 17:21 by Chantelle Castellanos RN) Cirrhosis of liver with ascites Diabetes Diabetes Esophageal varices determined by endoscopy Hyperkalemia Hypertension Parkinson disease Schizoaffective disorder Seizure Thrombocytopenia Functional capacity: wheelchair bound Patient : No Family History: Family History (Last Reviewed 08/27/25 @ 23:20 by Estelle Sandoval PA-C) Father Colon cancer Mother Diabetes Colon polyps Daughter Lupus Surgical History: Surgical History (Last Reviewed 08/28/25 @ 17:21 by Chantelle Castellanos RN) Hx of colonoscopy Hx of esophagogastroduodenoscopy Social History: Social History (Last Reviewed 08/27/25 @ 23:20 by Estelle Sandoval PA-C) Living Situation History: Household Members: None Housing: Long-Term Housing Other:: Duplex Are you a primary child care leader to a significant other at home: No Do you presently have visiting nurse or other home services: No Tobacco History: Patient Tobacco Use Status: Former Tobacco user Tobacco use type: Cigarette e-Cigarette/Vaping Use: Former Use Second Hand Smoke Exposure: No Occupation Assessmet: service: No Current occupational status: unemployed Current occupational status: disabled Home Medications and Allergies Current Medications: Current Medications Acetaminophen (Acetaminophen 325 Mg Tablet) 650 mg PO Q6H PRN PRN Reason: Pain, Mild 1-3,fever,headache Benztropine Mesylate (Benztropine Mesylate 0.5 Mg Tablet) 0.5 mg PO BEDTIME [facility] Last Admin: 08/27/25 23:54 Dose: 0.5 mg Calcium Carbonate (Calcium Carbonate 750 Mg Tab.Chew) 750 mg PO Q4H PRN PRN Reason: Heartburn Dextrose (Dextrose 50 % 25 Gm/50 Ml Syringe) 25 gm IVPUSH Q15M PRN; Protocol PRN Reason: per Hypoglycemia Standing Ord. Ferrous Sulfate (Ferrous Sulfate 324 Mg Tablet.Dr) 324 mg PO DAILY@0730 [facility] Last Admin: 08/28/25 08:06 Dose: 324 mg Furosemide (Furosemide 20 Mg Tablet) 60 mg PO DAILY@0800 [facility]; Protocol Last Admin: 08/28/25 08:05 Dose: 60 mg Glucose (Glucose Gel 15 Gm Gel..Gram.) 15 gm PO Q15M PRN; Protocol PRN Reason: per Hypoglycemia Standing Ord. Haloperidol (Haloperidol 5 Mg Tablet) 5 mg PO DAILY [facility] Last Admin: 08/28/25 08:06 Dose: 5 mg Haloperidol (Haloperidol 5 Mg Tablet) 10 mg PO BEDTIME [facility] Last Admin: 08/27/25 23:54 Dose: 10 mg Ceftriaxone Sodium 1 gm/ (Sodium Chloride) 50 mls @ 100 mls/hr IV Q24H [facility] Last Infusion: 08/27/25 23:29 Dose: Infused Doxycycline Hyclate 100 mg/ (Sodium Chloride) 250 mls @ 166.67 mls/hr IV Q12H [facility] Last Infusion: 08/28/25 11:03 Dose: Infused Insulin Glargine (Insulin Glargine,Hum.Rec.Anlog 100 Unit/Ml 10 Ml Vial) 34 unit SUBCUT BEDTIME [facility] Insulin Human Lispro (Insulin Lispro 100 Unit/Ml 3 Ml Vial) 0 unit SUBCUT QIDACHS [facility]; Protocol Last Admin: 08/28/25 13:30 Dose: 2 unit Lactulose (Lactulose 20 Gm/30 Ml Solution) 30 gm PO TID [facility] Last Admin: 08/28/25 08:06 Dose: 30 gm Magnesium Hydroxide (Milk Of Magnesia 30 Ml Oral.Susp) 30 ml PO DAILY PRN PRN Reason: Constipation Melatonin (Melatonin 3 Mg Tablet) 6 mg PO BEDTIME PRN PRN Reason: Insomnia Ondansetron HCl (Ondansetron Hcl 4 Mg/2 Ml Vial) 4 mg IVPUSH Q8H PRN PRN Reason: Nausea and Vomiting Oxycodone HCl (Oxycodone Hcl Immed Release 5 Mg Tablet) 5 mg PO Q6H PRN PRN Reason: Pain, Severe (Pain Scale 7-10) Senna (Sennosides 8.6 Mg Tablet) 8.6 mg PO BID PRN PRN Reason: Constipation Sodium Chloride (0.9 % Sodium Chloride Flush 3 Ml Syringe) [facility] Last Admin: 08/28/25 08:33 Dose: Not Given Spironolactone (Spironolactone 25 Mg Tablet) 50 mg PO DAILY [facility]; Protocol Last Admin: 08/28/25 08:06 Dose: 50 mg Tramadol HCl (Tramadol Hcl 50 Mg Tablet) 50 mg PO Q6H PRN PRN Reason: Pain, Moderate(Pain Scale 4-6) Home Medications ?Medication ?Instructions ?Recorded ?Confirmed ?Type benztropine 0.5 mg tablet 0.5 mg PO BEDTIME 08/17/20 08/27/25 History haloperidol 5 mg tablet 10 mg PO BEDTIME 08/17/20 08/27/25 History insulin lispro 100 unit/mL See Protocol subcut TID 08/17/20 08/27/25 History subcutaneous pen (Humalog KwikPen (U-100) Insulin) flash glucose sensor (FreeStyle #1 ea 05/01/23 06/28/25 History Gurpreet 2 Sensor kit) insulin degludec 200 unit/mL (3 70 unit subcut BEDTIME 05/01/23 08/27/25 History mL) subcutaneous pen (Tresiba FlexTouch U-200 insulin) blood-glucose meter (FreeStyle #1 ea 06/17/24 06/28/25 History Manor Lite kit) ferrous gluconate 240 mg (27 mg 240 mg PO DAILY@0730 04/26/25 08/27/25 History iron) tablet levofloxacin 250 mg tablet 250 mg PO DAILY 04/26/25 08/27/25 History magnesium hydroxide 400 mg/5 mL 30 ml PO BEDTIME PRN constipation 04/26/25 08/27/25 History oral suspension (Milk of Magnesia) #1 sennosides 8.6 mg capsule (senna) 8.6 mg PO BID PRN Constipation 04/26/25 08/27/25 History acetaminophen 325 mg tablet 650 mg PO Q4H PRN Fever Or Pain 06/09/25 08/27/25 History acetaminophen 650 mg rectal 650 mg HI Q4H PRN Fever Or Pain 06/09/25 08/27/25 History suppository bisacodyl 10 mg rectal suppository 10 mg HI DAILY PRN constipation #2 06/09/25 08/27/25 History lactulose 10 gram/15 mL (15 mL) 30 g PO TID 06/09/25 08/27/25 History oral solution melatonin 3 mg tablet 3 mg PO BEDTIME PRN Sleep 06/09/25 08/27/25 History naloxone 4 mg/actuation nasal 4 mg intranasal Q3M PRN overdose 06/09/25 08/27/25 History spray (Narcan) sodium phosphates 19 gram-7 118 ml HI DAILY PRN constipation #3 06/09/25 08/27/25 History gram/118 mL enema (Fleet Enema) spironolactone 50 mg tablet 50 mg PO DAILY 06/09/25 08/27/25 History haloperidol 5 mg tablet 5 mg PO DAILY 08/27/25 08/27/25 History Allergies Allergy/AdvReac Type Severity Reaction Status Date / Time Penicillins Allergy Unknown HIVES Verified 08/27/25 13:31 Physical Exam Vital signs: Vital Signs Temp 97.3 F 08/28/25 13:35 Pulse 83 08/28/25 13:35 Resp 16 08/28/25 13:35 BP 107/48 L 08/28/25 13:35 Pulse Ox 99 08/28/25 13:35 O2 Del Method Room Air 08/28/25 13:35 Intake & Output 08/27/25 08/28/25 08/28/25 18:59 06:59 18:59 Intake Total 1300 / 1300 250 / 250 Balance 1300 / 1300 250 / 250 Intake: Intake, IV Amount 1300 / 1300 250 / 250 0.9 % Sodium Chloride 1,000 ml 1000 / 1000 @ 999 mls/hr IV .Q1H1M [facility] Rx#: [id number] Doxycycline Hyclate 100 mg In 0 250 / 250 250 / 250 .9 % Sodium Chloride 250 ml @ 166.67 mls/hr IV Q12H [facility] Rx#: [id number] cefTRIAXone sodium 1 gm In 0.9 50 / 50 % Sodium Chloride 50 ml @ 100 mls/hr IV Q24H [facility] Rx#: [id number] Other: Weight 89.7 kg Weight 89.7 kg - Constitutional Present: mild distress - Routine HEENT Exam Head: Present: normal inspection. Absent: normocephalic Eye: Present: normal appearance - Routine Neck Exam Present: supple - Routine Respiratory Exam Present: CTAB - Routine Cardiovascular Exam Cardiovascular: Present: RRR, S1, S2 - Routine Abdominal Exam Present: tenderness - Routine Extremities Exam Present: nontender Hem/Onc Consult Result - Labs CBC & Chem 7: 08/29/25 04:29 08/29/25 04:29 Labs: Short CBC 08/27/25 08/28/25 Range/Units 17:08 03:51 WBC 2.9 L 2.4 L (4.8-10.8) X10*3/uL Hgb 8.9 L 8.5 L (12.0-16.0) g/dl Hct 26.0 L 24.6 L (37.0-47.0) % Plt Count 20 L* 18 L* (160-400) X10*3/uL BMP 08/27/25 08/28/25 17:08 03:51 Sodium 135 138 Potassium 4.5 4.3 Chloride 111 H 114 H Carbon Dioxide 19 L 17 L BUN 34 H 29 H Creatinine 1.11 0.93 Calcium 8.3 L 8.1 L Liver Function 08/27/25 08/28/25 Range/Units 17:08 03:51 Total Bilirubin 0.7 0.6 (0.0-1.0) mg/dL Direct Bilirubin 0.2 (0.0-0.5) mg/dL AST 37 H 35 H (5-31) U/L ALT 24 21 (0-31) U/L Alkaline Phosphatase 145 H 119 H (39-117) U/L Albumin 2.9 L 2.7 L (3.5-5.0) g/dL Urine 08/27/25 Range/Units 21:45 Urine Color Yellow Urine Appearance Cloudy Urine pH 6.0 (5.0-9.0) Ur Specific [place] 1.015 (1.005-1.025) Urine Protein Negative (Neg-Trace) mg/dL Urine Glucose (UA) Negative (Negative) mg/dL Assessment and Plan Patient Active problem list reviewed?: Yes (1) Lung mass Status: Acute Assessment and plan: Patient is a 65-year-old female with past medical history significant for CKD 2, T2 dm, cirrhosis, dementia and schizophrenia. She presented to the ED from [facility] due to chest pain and shortness of breath. Concern is pneumonia or lung mass on CT. CAT SCAN OF CHEST: 1. Right lower lobe posteromedial consolidation measuring 4.7 x 3.9 x 6.6 cm, concerning for pneumonia versus round atelectasis as identified on 05/2025. Tumor has not been excluded. Short-term follow-up is suggested. 2. Dilated esophagus with asymmetric mural thickening of the distal esophagus and gastroesophageal junction. 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 3. Cirrhosis. 4. Mild peripancreatic edema; acute pancreatitis can not be excluded. Clinical correlation suggested. 5. No main or segmental pulmonary emboli identified. CAT SCAN OF ABDOMEN/PELVIS: 1. Re-identified right lower lobe posterior dependent consolidation, 4.5 x 2.9 x 7 cm; round pneumonia suspected. 2. Cirrhosis 3. Splenomegaly, 16 cm. 4. Peripancreatic edema; subacute pancreatitis and/or mesenteric panniculitis. Clinical correlation suggested. 5. Umbilical hernia, 1.9 cm defect with 5 cm herniation and mural thickening; incarceration can not be excluded. Clinical correlation suggested. DATA BASE: CBC: WBC 2.4, HGB 8.5, HCT 24.6, PLT 18. She is on lactulose for encephalopathy. Lasix and Aldactone for ascites. Considering, risk and benefit ratio, in this lady with several comorbidities including liver cirrhosis and pancytopenia, especially with underlying schizophrenia, would not pinon into lung biopsy. Biopsy would be risky in the setting of thrombocytopenia, which was previously unresponsive to platelet transfusions. Would initially treat as pneumonia, with antibiotics. PLAN: Will need to discuss with healthcare proxy, about how much they would like to pursue things. Even if lung cancer is present, have limited options, that is surgery/chemotherapy could be life-threatening. For now, Trial of antibiotic, Ceftriaxone and Doxycycline. Monitor CBC and BMP. Thank you, CC: [facility]. - Time Spent With Patient Time Spent with Patient (in minutes): 30
--- NOTE | 2025-08-28 15:44 | HO.NURTONUR ---
pt from [facility] yesterday w/ c/o cp and sob per transfer report. CT shows RuL mass vs pna. 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 At baseline pt is oriented to self and therefore is a very poor historian. Pt was tx'd w/ abx and has was consulted w/ hematology/oncology. Pt also has hx of ascites in sharda past and has required paracentecis. Pt is independent w/ feeding herself, and ambulates to bathroom w/ stand-by assist. Pt is also chinese speaking only
--- NOTE | 2025-08-28 16:15 | PC.NURSE ---
Tr Estrada at bedside, requesting update, [place] text sent to hospitalist w/ dtr number [phone]
[2025-08-28] MEDS: 0.9 % Sodium Chloride Flush 3 ML SYRINGE IVFLUSH (16:24)
[2025-08-28 17:27] LABS: Glucose, Whole Blood 284 mg/dL (60-115)
[2025-08-28 20:35] LABS: Glucose, Whole Blood 161 mg/dL (60-115)
[2025-08-28] MEDS: Insulin Glargine,Hum.rec.anlog 100 UNIT/ML 10 ML VIAL 34 UNIT SUBCUT (21:19)
[2025-08-29] VITALS (7 sets, daily range): BP systolic 122–143; BP diastolic 57–72; PULSE 80–90; RESP 16–20; TEMP 36–36.7; O2SAT 94–100
[2025-08-29] MEDS: 0.9 % Sodium Chloride Flush 3 ML SYRINGE IVFLUSH ×3 (00:20→18:13)
[2025-08-29 04:39] LABS: MANUAL DIFF FLAG NO
[2025-08-29 04:51] LABS: Hematocrit 26.3 % (37.0-47.0); Hemoglobin 8.9 g/dl (12.0-16.0); Imm Gran Abs Auto 0.02 X10*3/uL (0.00-0.03); Imm Gran Pct Auto 0.7 % (0.0-0.4); Lymphocytes Absolute Auto 0.4 X10*3/uL (1.2-4.9); Mean Corpuscular HGB Conc 33.8 g/dl (31.0-35.0); Mean Corpuscular Hemoglobin 31.1 pg (27.0-33.0); Mean Corpuscular Volume 92.0 fL (80.0-98.0); NRBC Abs Auto 0.000 X10*3/uL (0.0-0.012); NRBC Pct Auto 0.0 /100WBC (0.0-0.2); Red Blood Count 2.86 X10*6/uL (4.20-5.50); White Blood Count 2.7 X10*3/uL (4.8-10.8)
[2025-08-29 04:53] LABS: Anion Gap 12 (12-20); Blood Urea Nitrogen 33 mg/dL (9-16); Calcium 8.2 mg/dL (8.4-10.2); Carbon Dioxide 18 mmol/L (22-29); Chloride 112 mmol/L (96-108); Creatinine Clr Calc Pharmacy 53.9; Estimated Glomerular Filt Rate 51; Potassium 4.5 mmol/L (3.3-5.1); Sodium 137 mmol/L (135-145)
[2025-08-29 04:54] LABS: Alanine Aminotransferase 28 U/L (0-31); Albumin Level 2.7 g/dL (3.5-5.0); Alkaline Phosphatase 143 U/L (39-117); Anion Gap 11 (12-20); Aspartate Amino Transferase 43 U/L (5-31); Blood Urea Nitrogen 33 mg/dL (9-16); Calcium 8.2 mg/dL (8.4-10.2); Carbon Dioxide 18 mmol/L (22-29); Chloride 113 mmol/L (96-108); Creatinine Clr Calc Pharmacy 52.4; Estimated Glomerular Filt Rate 49; Potassium 4.5 mmol/L (3.3-5.1); Sodium 137 mmol/L (135-145); Total Protein 5.9 g/dL (6.5-8.0)
[2025-08-29 05:07] LABS: Platelet Count 16 X10*3/uL (160-400)
[2025-08-29 08:10] LABS: Glucose, Whole Blood 219 mg/dL (60-115)
[2025-08-29] MEDS: Ferrous Sulfate 324 MG TABLET.DR PO (09:03)
--- NOTE | 2025-08-29 11:06 | MHC.CM.PN ---
Addendum entered by Solange Ponce 08/30/25 15:00: THE CURRENT PLAN IS FOR FAMILY TO TAKE PT HOME TOMORROW REFERRAL MADE TO [facility] FAMILY REQUEST Addendum entered by Solange Ponce 08/30/25 10:56: CM ATTEMPTED TO CONTACT PTS PRIMARY HCP, NO ANSWER, VM LEFT CM CONTACTED THE ALTERNATE HCP OLYA [phone] SHE REPORTS THE PT WAS SUPPOSED TO DC HOME FROM THE SNF ON SATURDAY, BUT WAS SENT TO THE ED INSTEAD SHE SAYS THE SNF TOLD HER THE PT HAS TO RETURN THERE BEFORE SHE CAN DC HOME, HOWEVER SNF TOLD THIS CM THAT THEY DID NOT EXPECT PT TO RETURN SHE WAS GOING HOME CM WILL CONTACT SNF AND DETERMINE IF THERE IS ANY REASON PT WOULD NEED TO RETURN THERE, IF SHE CAN GO HOME, CM WILL ARRANGE VNA AND A REFERRAL TO [facility] Addendum entered by Solange Ponce 08/30/25 10:18: PT IS NOT LTC, SHE WAS STR AT [facility] AND PLANNING TO DC HOME AT TIME OF [facility] ADMISSION SHE WILL BE EVALUATED BY PT TO DETERMINE ABILITY TO DC HOME FROM HERE. Original Note: Pt resides at [facility], HCP is on file: Yohan, DCP is return to SNF via BLS, CM to follow for DC needs.
[2025-08-29 11:08] LABS: Glucose, Whole Blood 268 mg/dL (60-115)
--- NOTE | 2025-08-29 11:32 | P.PNIM_ITS ---
Subjective Subjective Date of Service: 08/29/25 Review of Systems Follow up PNA dementia so difficult to ha information Physical Exam 2 Exam: Exam: Appearing in no acute distress lung sounds are clear to auscultation heart regular rate rhythm, clear S1, S2 positive bowel sounds, abdomen is soft, nontender neuro patient is alert, confused Vital Signs: Vital Signs: Last Vital Signs Temp 98.0 F 08/29/25 08:00 Pulse 85 08/29/25 08:00 Resp 20 08/29/25 08:00 BP 122/58 L 08/29/25 08:00 Pulse Ox 99 08/29/25 08:00 O2 Del Method Room Air 08/29/25 08:00 BMI result Body Mass Index 35.2 Objective Data Active Medications Acetaminophen (Acetaminophen 325 Mg Tablet) 650 mg PO Q6H PRN PRN Reason: Pain, Mild 1-3,fever,headache Last Admin: 08/29/25 09:12 Dose: 650 mg Documented By: ASHOK Benztropine Mesylate (Benztropine Mesylate 0.5 Mg Tablet) 0.5 mg PO BEDTIME [facility] Last Admin: 08/28/25 20:52 Dose: 0.5 mg Documented By: CHANNING Calcium Carbonate (Calcium Carbonate 750 Mg Tab.Chew) 750 mg PO Q4H PRN PRN Reason: Heartburn Dextrose (Dextrose 50 % 25 Gm/50 Ml Syringe) 25 gm IVPUSH Q15M PRN; Protocol PRN Reason: per Hypoglycemia Standing Ord. Ferrous Sulfate (Ferrous Sulfate 324 Mg Tablet.) 324 mg PO DAILY@0730 [facility] Last Admin: 08/29/25 09:03 Dose: 324 mg Documented By: ASHOK Furosemide (Furosemide 20 Mg Tablet) 60 mg PO DAILY@0800 [facility]; Protocol Last Admin: 08/29/25 09:03 Dose: 60 mg Documented By: ASHOK Glucose (Glucose Gel 15 Gm Gel..Gram.) 15 gm PO Q15M PRN; Protocol PRN Reason: per Hypoglycemia Standing Ord. Haloperidol (Haloperidol 5 Mg Tablet) 5 mg PO DAILY [facility] Last Admin: 08/29/25 09:03 Dose: 5 mg Documented By: ASHOK Haloperidol (Haloperidol 5 Mg Tablet) 10 mg PO BEDTIME [facility] Last Admin: 08/28/25 20:52 Dose: 10 mg Documented By: CHANNING Ceftriaxone Sodium 1 gm/ (Sodium Chloride) 50 mls @ 100 mls/hr IV Q24H [facility] Last Infusion: 08/28/25 21:25 Dose: Infused Documented By: CHANNING Doxycycline Hyclate 100 mg/ (Sodium Chloride) 250 mls @ 166.67 mls/hr IV Q12H [facility] Last Infusion: 08/29/25 10:35 Dose: Infused Documented By: ASHOK Insulin Glargine (Insulin Glargine,Hum.Rec.Anlog 100 Unit/Ml 10 Ml Vial) 34 unit SUBCUT BEDTIME [facility] Last Admin: 08/28/25 21:19 Dose: 34 unit Documented By: CHANNING Insulin Human Lispro (Insulin Lispro 100 Unit/Ml 3 Ml Vial) 0 unit SUBCUT QIDACHS [facility]; Protocol Last Admin: 08/29/25 09:04 Dose: 4 unit Documented By: ASHOK Lactulose (Lactulose 20 Gm/30 Ml Solution) 30 gm PO TID [facility] Last Admin: 08/29/25 09:03 Dose: 30 gm Documented By: ASHOK Magnesium Hydroxide (Milk Of Magnesia 30 Ml Oral.Susp) 30 ml PO DAILY PRN PRN Reason: Constipation Melatonin (Melatonin 3 Mg Tablet) 6 mg PO BEDTIME PRN PRN Reason: Insomnia Ondansetron HCl (Ondansetron Hcl 4 Mg/2 Ml Vial) 4 mg IVPUSH Q8H PRN PRN Reason: Nausea and Vomiting Oxycodone HCl (Oxycodone Hcl Immed Release 5 Mg Tablet) 5 mg PO Q6H PRN PRN Reason: Pain, Severe (Pain Scale 7-10) Senna (Sennosides 8.6 Mg Tablet) 8.6 mg PO BID PRN PRN Reason: Constipation Sodium Chloride (0.9 % Sodium Chloride Flush 3 Ml Syringe) 3 ml IVFLUSH QSHIFT [facility] Last Admin: 08/29/25 09:09 Dose: 3 ml Documented By: ASHOK Spironolactone (Spironolactone 25 Mg Tablet) 50 mg PO DAILY [facility]; Protocol Last Admin: 08/29/25 09:03 Dose: 50 mg Documented By: ASHOK Tramadol HCl (Tramadol Hcl 50 Mg Tablet) 50 mg PO Q6H PRN PRN Reason: Pain, Moderate(Pain Scale 4-6) Labs 08/29/25 04:29 08/29/25 04:29 Labs: Laboratory Results - last 24 hr 08/28/25 08/28/25 08/28/25 13:13 13:50 17:22 MCV MCH MCHC RDW Plt Count MPV Immature Gran % (Auto) Neut % (Auto) Lymph % (Auto) Blanco % (Auto) Eos % (Auto) Baso % (Auto) Lymph # (Auto) [place] # (Auto) Eos # (Auto) Baso # (Auto) Abs Immat Gran (auto) Absolute Neuts (auto) Absolute Nucleated RBC Nucleated RBC % (auto) Anion Gap Estim Creat Clear Calc Estimated GFR POC Glucose 193 H 177 H 284 H Random Glucose Calcium Total Bilirubin AST ALT Alkaline Phosphatase Total Protein Albumin 08/28/25 08/29/25 08/29/25 20:32 04:29 04:29 MCV 92.0 MCH 31.1 MCHC 33.8 RDW 14.4 Plt Count 16 L* MPV 11.1 Immature Gran % (Auto) 0.7 H Neut % (Auto) 69.0 Lymph % (Auto) 13.1 L [place]anco % (Auto) 9.5 Eos % (Auto) 7.3 H Baso % (Auto) 0.4 Lymph # (Auto) 0.4 L [place] # (Auto) 0.3 Eos # (Auto) 0.2 Baso # (Auto) 0.0 Abs Immat Gran (auto) 0.02 Absolute Neuts (auto) 1.9 L Absolute Nucleated RBC 0.000 Nucleated RBC % (auto) 0.0 Anion Gap 11 L 12 Estim Creat Clear Calc 52.4 Estimated GFR POC Glucose 161 H Random Glucose Calcium Total Bilirubin AST ALT Alkaline Phosphatase Total Protein Albumin 08/29/25 08/29/25 08/29/25 04:29 04:29 04:29 MCV MCH MCHC RDW Plt Count MPV Immature Gran % (Auto) Neut % (Auto) Lymph % (Auto) Blanco % (Auto) Eos % (Auto) Baso % (Auto) Lymph # (Auto) Bl[place] # (Auto) Eos # (Auto) Baso # (Auto) Abs Immat Gran (auto) Absolute Neuts (auto) Absolute Nucleated RBC Nucleated RBC % (auto) Anion Gap Estim Creat Clear Calc 53.9 Estimated GFR 49 51 POC Glucose Random Glucose 193 H 189 H Calcium 8.2 L Total Bilirubin AST ALT Alkaline Phosphatase Total Protein Albumin 08/29/25 08/29/25 08/29/25 04:29 07:49 10:51 MCV MCH MCHC RDW Plt Count MPV Immature Gran % (Auto) Neut % (Auto) Lymph % (Auto) Blanco % (Auto) Eos % (Auto) Baso % (Auto) Lymph # (Auto) Blanco # (Auto) Eos # (Auto) Baso # (Auto) Abs Immat Gran (auto) Absolute Neuts (auto) Absolute Nucleated RBC Nucleated RBC % (auto) Anion Gap Estim Creat Clear Calc Estimated GFR POC Glucose 219 H 268 H Random Glucose Calcium 8.2 L Total Bilirubin 0.6 AST 43 H ALT 28 Alkaline Phosphatase 143 H Total Protein 5.9 L Albumin 2.7 L Assessment and Plan (1) Thrombocytopenia: Status: Chronic Plan 65-year-old female with a past medical history significant for CKD 2, T2 dm, cirrhosis, dementia and schizophrenia, who presented to the ED from [facility] due to chest pain and shortness of breath. Pneumonia vs lung mass on CT continue ceftriaxone and doxycycline oncology consult>High risk for biopsy or any surgical procedure d/t low plts monitor CBC and BMP esophageal thickening on CT vs esophageal varices GI consult H+H stable monitor CBC umbilical hernia on CT, incarceration can not be excluded CT films reviewed by Dr Reed, no surgery indicated as this is only fat containing hyperchloremic metabolic acidosis follow BMP pancytopenia, secondary to cirrhosis at baseline monitor CBC chest pain pt denying any chest pain EKG non-ischemic (difficulties loading into chart, paper EKG reviewed) trop negative CKD2 monitor BMP avoid nephrotoxins T2DM SSI diabetic diet lantus 34U QHS, reduced dose as converted from tresiba cirrhosis Lasix, spironolactone, lactulose, magnesium Dementia/schizophrenia benztropine, Haldol full code VTE prophy: SCDs due to thrombocytopenia Patient with pneumonia versus lung mass and c/o SOB, concern for lack of outpatient follow-up, still requiring IV antibiotics Quality Stroke Does the patient have a stroke diagnosis?: No VTE Prior VTE?: No VTE Risk Level:: Medical - moderate - high VTE Device Contraindication: N/A - Device Ordered VTE Drug Contraindication: Treatment Not Indicated
[2025-08-29 20:54] LABS: Glucose, Whole Blood 163 mg/dL (60-115)
[2025-08-30] VITALS (11 sets, daily range): BP systolic 116–137; BP diastolic 57–66; PULSE 84–92; RESP 17–20; TEMP 36–36.6; O2SAT 98–100
[2025-08-30] MEDS: 0.9 % Sodium Chloride Flush 3 ML SYRINGE IVFLUSH ×4 (00:40→21:13)
[2025-08-30 06:32] LABS: MANUAL DIFF FLAG NO
[2025-08-30 06:41] LABS: Hematocrit 27.2 % (37.0-47.0); Hemoglobin 9.3 g/dl (12.0-16.0); Imm Gran Abs Auto 0.02 X10*3/uL (0.00-0.03); Imm Gran Pct Auto 0.6 % (0.0-0.4); Lymphocytes Absolute Auto 0.5 X10*3/uL (1.2-4.9); Mean Corpuscular HGB Conc 34.2 g/dl (31.0-35.0); Mean Corpuscular Hemoglobin 31.3 pg (27.0-33.0); Mean Corpuscular Volume 91.6 fL (80.0-98.0); NRBC Abs Auto 0.000 X10*3/uL (0.0-0.012); NRBC Pct Auto 0.0 /100WBC (0.0-0.2); Red Blood Count 2.97 X10*6/uL (4.20-5.50); White Blood Count 3.6 X10*3/uL (4.8-10.8)
[2025-08-30 06:56] LABS: Alanine Aminotransferase 34 U/L (0-31); Albumin Level 2.9 g/dL (3.5-5.0); Alkaline Phosphatase 146 U/L (39-117); Anion Gap 11 (12-20); Aspartate Amino Transferase 47 U/L (5-31); Blood Urea Nitrogen 41 mg/dL (9-16); Calcium 8.6 mg/dL (8.4-10.2); Carbon Dioxide 17 mmol/L (22-29); Chloride 114 mmol/L (96-108); Creatinine Clr Calc Pharmacy 44.1; Estimated Glomerular Filt Rate 41; Potassium 4.5 mmol/L (3.3-5.1); Sodium 137 mmol/L (135-145); Total Protein 6.4 g/dL (6.5-8.0)
[2025-08-30 07:09] LABS: Glucose, Whole Blood 169 mg/dL (60-115)
[2025-08-30 07:20] LABS: Platelet Count 17 X10*3/uL (160-400)
--- NOTE | 2025-08-30 09:04 | P.DS_ITS ---
DS: Providers Provider Date of Service: 08/30/25 Date of admission: 08/27/25 21:15 Date of discharge: 08/30/25 Primary care physician: KAROLINA Huff Consults: 08/27/25 21:15 Consult to Gastroenterology Routine Consulting Provider: Ihsan Quinones Reason for consultation: cirrhosis, ?varices vs esophageal carcinoma 08/27/25 21:19 Consult to Hematology / Oncology Routine Consulting Provider: [facility] [place] Oncology/Hematology Reason for consultation: consolidation vs mass on CT DS: Diagnosis Discharge Diagnosis (1) Lung mass: Status: Acute DS: Summary Hospital Course Hospital Course: History and physical as per admitting provider. Patient is a 65-year-old female with a past medical history significant for CKD 2, T2 dm, cirrhosis, dementia and schizophrenia, who presented to the ED from [facility] due to chest pain and shortness of breath. The patient reported the her symptoms feel similar to when she needs a paracentesis. Her last paracentesis is unknown, abdominal ultrasound in June suggestive of not enough fluid for paracentesis. The patient is a very poor historian, responds yes initially to every question and then changes her response to no is not oriented to place or time. 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 Community-acquired pneumonia. [facility] Complete course with Ceftin and doxycycline. Lung mass seen on CAT scan. At this time patient has a history of chronic thrombocytopenia with low platelets and patient is very high risk for biopsy. At this time plan will be for repeat CAT scan in a few weeks after treatment for pneumonia is complete. Chronic pancytopenia. Secondary to chronic liver cirrhosis. Received 1 dose of platelets as platelet count fell to 17. Diabetes mellitus type 2. Continue home medications History of cirrhosis. Continue Lasix, spironolactone Dementia. Continuing Haldol and benztropine Time Attestation Discharge Coordination Time (in mins): 45 Quality: Safe Use of Opioids Does Pt have an Active Cancer Diagnosis on the Problem List?: No Quality: Stroke Does the patient have a stroke diagnosis?: No Physical Exam Exam: Exam: Appearing in no acute distress head is normocephalic atraumatic eyes pupils are PERRLA sclera is anicteric mouth throat mucous membranes are intact and moist neck is supple no lymphadenopathy, no JVD noted lung sounds are clear to auscultation heart regular rate rhythm, clear S1, S2 positive bowel sounds, abdomen is soft, nontender neuro patient is alert to self only Vital Signs: Vital Signs: Last Vital Signs Temp 97.8 F 08/30/25 07:09 Pulse 90 08/30/25 07:09 Resp 20 08/30/25 07:09 BP 133/63 08/30/25 07:09 Pulse Ox 99 08/30/25 07:09 O2 Del Method Room Air 08/30/25 07:09 BMI result Body Mass Index 35.2 DS: Data Data Completed and Pending Completed studies during hospitalization [Text1]: Procedures Drainage of Peritoneal Cavity, Percutaneous Approach (06/09/25) Labs on day of discharge: Laboratory Results - last 24 hr 08/29/25 08/29/25 08/30/25 10:51 20:40 06:24 WBC 3.6 L RBC 2.97 L Hgb 9.3 L Hct 27.2 L MCV 91.6 MCH 31.3 MCHC 34.2 RDW 14.3 Plt Count 17 L* MPV 10.8 Immature Gran % (Auto) 0.6 H Neut % (Auto) 66.9 Lymph % (Auto) 14.2 L [place] % (Auto) 9.4 Eos % (Auto) 8.3 H Baso % (Auto) 0.6 Lymph # (Auto) 0.5 L [place] # (Auto) 0.3 Eos # (Auto) 0.3 Baso # (Auto) 0.0 Abs Immat Gran (auto) 0.02 Absolute Neuts (auto) 2.4 Absolute Nucleated RBC 0.000 Nucleated RBC % (auto) 0.0 Sodium 137 Potassium 4.5 Chloride 114 H Carbon Dioxide 17 L Anion Gap 11 L BUN 41 H Creatinine 1.32 Estim Creat Clear Calc 44.1 Estimated GFR 41 POC Glucose 268 H 163 H Random Glucose 183 H Calcium 8.6 Total Bilirubin 0.7 AST 47 H ALT 34 H Alkaline Phosphatase 146 H Total Protein 6.4 L Albumin 2.9 L 08/30/25 06:57 WBC RBC Hgb Hct MCV MCH MCHC RDW Plt Count MPV Immature Gran % (Auto) Neut % (Auto) Lymph % (Auto) [place] % (Auto) Eos % (Auto) Baso % (Auto) Lymph # (Auto) [place] # (Auto) Eos # (Auto) Baso # (Auto) Abs Immat Gran (auto) Absolute Neuts (auto) Absolute Nucleated RBC Nucleated RBC % (auto) Sodium Potassium Chloride Carbon Dioxide Anion Gap BUN Creatinine Estim Creat Clear Calc Estimated GFR POC Glucose 169 H Random Glucose Calcium Total Bilirubin AST ALT Alkaline Phosphatase Total Protein Albumin Discharge Plan Discharge Anticipated Discharge Date/Time: 08/31/25 07:24 Patient Disposition: Home Health Service Discharge Diagnosis: Pneumonia Referrals: SusanAna levy, [employer]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 [Primary Care Provider, Medical] - 1 Week Discharge Medications: New cefuroxime axetil 500 mg tablet 500 mg PO BID Qty: 6 0RF doxycycline hyclate 100 mg tablet 100 mg PO BID Qty: 6 0RF Continued benztropine 0.5 mg Tablet 0.5 mg PO BEDTIME haloperidol 5 mg Tablet 10 mg PO BEDTIME insulin lispro [Humalog KwikPen Insulin] 100 unit/mL Insulin Pen See Protocol SUBCUT TID Protocol: Insulin Correction Scale Less than or equal to 110 ---- Give (units): 0 111 to 150 Give (units): 0 151 to 200 Give (units): 4 201 to 250 Give (units): 6 251 to 300 Give (units): 8 301 to 350 Give (units): 10 Greater than 350 Give (units): 12 Call MD if Blood Glucose > : 400 Patient Comments: pt has MD sliding scale Rx Instructions: sliding scale haloperidol 5 mg Tablet 5 mg PO DAILY acetaminophen 325 mg Tablet 650 mg PO Q4H PRN (Reason: Fever Or Pain) acetaminophen 650 mg Suppository 650 mg KY Q4H PRN (Reason: Fever Or Pain) melatonin 3 mg Tablet 3 mg PO BEDTIME PRN (Reason: Sleep) bisacodyl 10 mg Suppository 10 mg KY DAILY PRN (Reason: constipation #2) Fleet Enema 19-7 gram/118 mL Enema 118 ml KY DAILY PRN (Reason: constipation #3) spironolactone 50 mg Tablet 50 mg PO DAILY naloxone [Narcan] 4 mg/actuation Unity,Non-Aerosol 4 mg INTRANASAL Q3M PRN (Reason: overdose) Rx Instructions: spray 1 dose into ONE nostril; alternate nostrils w each dose until help arrives lactulose 10 gram/15 mL (15 mL) solution 30 g PO TID (DME) blood pressure monitor [Blood Pressure Kit] Kit See Rx Instructions .Route Qty: 1 0RF Rx Instructions: As directed furosemide 40 mg tablet 60 mg PO DAILY 90 Days Qty: 135 0RF magnesium hydroxide [Milk of Magnesia] 400 mg/5 mL suspension 30 ml PO BEDTIME PRN (Reason: constipation #1) ferrous gluconate 240 mg (27 mg iron) tablet 240 mg PO DAILY@0730 senna 8.6 mg capsule 8.6 mg PO BID PRN (Reason: Constipation) insulin degludec [Tresiba FlexTouch U-200] 200 unit/mL (3 mL) insulin pen 70 unit subcut BEDTIME (DME) FreeStyle Gurpreet 2 Sensor Kit See Rx Instructions .ROUTE Q2W Qty: 1 Rx Instructions: As directed (DME) blood-glucose meter [FreeStyle [place] Lite] Kit See Rx Instructions .ROUTE QID Qty: 1 Rx Instructions: As directed Discontinued levofloxacin 250 mg tablet 250 mg PO DAILY Discharge Orders: Discharge Order (Routine); Ordered 08/31/25 Ordered By: Yvette Batista Diet: Advance to usual diet Activity on Discharge: As tolerated Stand Alone Forms: Patient Portal Discharge page Print Language: Iranian Care Plan Goals: Complete course of antibiotics Health Concerns: Pneumonia Plan of Treatment: Follow up with primary care provider as needed Take all medications as prescribed Assessment: See discharge summary
[2025-08-30] MEDS: Ferrous Sulfate 324 MG TABLET.DR PO (10:40)
[2025-08-30 11:01] LABS: Glucose, Whole Blood 283 mg/dL (60-115)
[2025-08-30 11:23] LABS: Glucose, Whole Blood 137 mg/dL (60-115)
--- NOTE | 2025-08-30 14:42 | HO.PM.IMPN ---
Subjective Subjective Date of Service: 08/30/25 Review of Systems Follow up PNA dementia so difficult to ha information Physical Exam Exam: Exam: Appearing in no acute distress lung sounds are clear to auscultation heart regular rate rhythm, clear S1, S2 positive bowel sounds, abdomen is soft, nontender neuro patient is alert, confused Vital Signs: Vital Signs: Last Vital Signs Temp 97.8 F 08/30/25 07:09 Pulse 90 08/30/25 07:09 Resp 20 08/30/25 07:09 BP 133/63 08/30/25 10:39 Pulse Ox 99 08/30/25 07:09 O2 Del Method Room Air 08/30/25 07:09 BMI result Body Mass Index 35.2 Objective Data Active Medications Acetaminophen (Acetaminophen 325 Mg Tablet) 650 mg PO Q6H PRN PRN Reason: Pain, Mild 1-3,fever,headache Last Admin: 08/29/25 09:12 Dose: 650 mg Documented By: ASHOK Benztropine Mesylate (Benztropine Mesylate 0.5 Mg Tablet) 0.5 mg PO BEDTIME [facility] Last Admin: 08/29/25 22:33 Dose: 0.5 mg Documented By: RUDY Calcium Carbonate (Calcium Carbonate 750 Mg Tab.Chew) 750 mg PO Q4H PRN PRN Reason: Heartburn Dextrose (Dextrose 50 % 25 Gm/50 Ml Syringe) 25 gm IVPUSH Q15M PRN; Protocol PRN Reason: per Hypoglycemia Standing Ord. Doxycycline Monohydrate (Doxycycline Monohydrate 100 Mg Capsule) 100 mg PO Q12H [facility] Ferrous Sulfate (Ferrous Sulfate 324 Mg Preethi.) 324 mg PO DAILY@0730 [facility] Last Admin: 08/30/25 10:40 Dose: 324 mg Documented By: DANO Furosemide (Furosemide 20 Mg Tablet) 60 mg PO DAILY@0800 [facility]; Protocol Last Admin: 08/30/25 10:39 Dose: 60 mg Documented By: DANO Glucose (Glucose Gel 15 Gm Gel..Gram.) 15 gm PO Q15M PRN; Protocol PRN Reason: per Hypoglycemia Standing Ord. Haloperidol (Haloperidol 5 Mg Tablet) 5 mg PO DAILY [facility] Last Admin: 08/30/25 10:40 Dose: 5 mg Documented By: DANO Haloperidol (Haloperidol 5 Mg Tablet) 10 mg PO BEDTIME [facility] Last Admin: 08/29/25 22:33 Dose: 10 mg Documented By: RUDY Ceftriaxone Sodium 1 gm/ (Sodium Chloride) 50 mls @ 100 mls/hr IV Q24H [facility] Last Infusion: 08/29/25 23:12 Dose: Infused Documented By: RUDY Insulin Glargine (Insulin Glargine,Hum.Rec.Anlog 100 Unit/Ml 10 Ml Vial) 34 unit SUBCUT BEDTIME [facility] Last Admin: 08/29/25 22:32 Dose: 34 unit Documented By: RUDY Insulin Human Lispro (Insulin Lispro 100 Unit/Ml 3 Ml Vial) 0 unit SUBCUT QIDACHS [facility]; Protocol Last Admin: 08/30/25 12:47 Dose: 6 unit Documented By: DANO Lactulose (Lactulose 20 Gm/30 Ml Solution) 30 gm PO TID [facility] Last Admin: 08/30/25 10:39 Dose: 30 gm Documented By: DANO Magnesium Hydroxide (Milk Of Magnesia 30 Ml Oral.Susp) 30 ml PO DAILY PRN PRN Reason: Constipation Melatonin (Melatonin 3 Mg Tablet) 6 mg PO BEDTIME PRN PRN Reason: Insomnia Ondansetron HCl (Ondansetron Hcl 4 Mg/2 Ml Vial) 4 mg IVPUSH Q8H PRN PRN Reason: Nausea and Vomiting Oxycodone HCl (Oxycodone Hcl Immed Release 5 Mg Tablet) 5 mg PO Q6H PRN PRN Reason: Pain, Severe (Pain Scale 7-10) Senna (Sennosides 8.6 Mg Tablet) 8.6 mg PO BID PRN PRN Reason: Constipation Sodium Chloride (0.9 % Sodium Chloride Flush 3 Ml Syringe) 3 ml IVFLUSH QSHIFT [facility] Last Admin: 08/30/25 10:40 Dose: 3 ml Documented By: DANO Spironolactone (Spironolactone 25 Mg Tablet) 50 mg PO DAILY [facility]; Protocol Tramadol HCl (Tramadol Hcl 50 Mg Tablet) 50 mg PO Q6H PRN PRN Reason: Pain, Moderate(Pain Scale 4-6) Labs 08/30/25 06:24 08/30/25 06:24 Labs: Laboratory Results - last 24 hr 08/28/25 08/29/25 08/29/25 03:51 16:43 20:40 MCV MCH MCHC RDW Plt Count MPV Immature Gran % (Auto) Neut % (Auto) Lymph % (Auto) [place] % (Auto) Eos % (Auto) Baso % (Auto) Lymph # (Auto) [place] # (Auto) Eos # (Auto) Baso # (Auto) Abs Immat Gran (auto) Absolute Neuts (auto) Absolute Nucleated RBC Nucleated RBC % (auto) Smear Path Review SEE NOTE Anion Gap Estim Creat Clear Calc Estimated GFR POC Glucose 137 H 163 H Random Glucose Calcium Total Bilirubin AST ALT Alkaline Phosphatase Total Protein Albumin Blood Type Antibody Screen 08/30/25 08/30/25 08/30/25 06:24 06:57 08:33 MCV 91.6 MCH 31.3 MCHC 34.2 RDW 14.3 Plt Count 17 L* MPV 10.8 Immature Gran % (Auto) 0.6 H Neut % (Auto) 66.9 Lymph % (Auto) 14.2 L [place] % (Auto) 9.4 Eos % (Auto) 8.3 H Baso % (Auto) 0.6 Lymph # (Auto) 0.5 L [place] # (Auto) 0.3 Eos # (Auto) 0.3 Baso # (Auto) 0.0 Abs Immat Gran (auto) 0.02 Absolute Neuts (auto) 2.4 Absolute Nucleated RBC 0.000 Nucleated RBC % (auto) 0.0 Smear Path Review Anion Gap 11 L Estim Creat Clear Calc 44.1 Estimated GFR 41 POC Glucose 169 H Random Glucose 183 H Calcium 8.6 Total Bilirubin 0.7 AST 47 H ALT 34 H Alkaline Phosphatase 146 H Total Protein 6.4 L Albumin 2.9 L Blood Type B Positive Antibody Screen NEGATIVE 08/30/25 10:52 MCV MCH MCHC RDW Plt Count MPV Immature Gran % (Auto) Neut % (Auto) Lymph % (Auto) [place] % (Auto) Eos % (Auto) Baso % (Auto) Lymph # (Auto) [place] # (Auto) Eos # (Auto) Baso # (Auto) Abs Immat Gran (auto) Absolute Neuts (auto) Absolute Nucleated RBC Nucleated RBC % (auto) Smear Path Review Anion Gap Estim Creat Clear Calc Estimated GFR POC Glucose 283 H Random Glucose Calcium Total Bilirubin AST ALT Alkaline Phosphatase Total Protein Albumin Blood Type Antibody Screen Microbiology Microbiology Results: Microbiology 08/27/25 Unknown Urine Culture - Final Urine clean catch - Clean Catch Midstream Assessment and Plan (1) Thrombocytopenia: Status: Chronic Plan 65-year-old female with a past medical history significant for CKD 2, T2 dm, cirrhosis, dementia and schizophrenia, who presented to the ED from [facility] due to chest pain and shortness of breath. Acute on chronic thrombocytopenia no bleeding down to 17 today 1 units of PLT today Pneumonia vs lung mass on CT continue ceftriaxone and doxycycline oncology consult>High risk for biopsy or any surgical procedure d/t low plts monitor CBC and BMP esophageal thickening on CT vs esophageal varices GI consult H+H stable monitor CBC umbilical hernia on CT, incarceration can not be excluded CT films reviewed by Dr Reed, no surgery indicated as this is only fat containing hyperchloremic metabolic acidosis follow BMP pancytopenia, secondary to cirrhosis at baseline monitor CBC chest pain pt denying any chest pain EKG non-ischemic (difficulties loading into chart, paper EKG reviewed) trop negative CKD2 monitor BMP avoid nephrotoxins T2DM SSI diabetic diet lantus 34U QHS, reduced dose as converted from tresiba cirrhosis Lasix, spironolactone, lactulose, magnesium Dementia/schizophrenia benztropine, Haldol full code VTE prophy: SCDs due to thrombocytopenia Patient with pneumonia versus lung mass and c/o SOB, concern for lack of outpatient follow-up, requiring 1 unit of PLT today Quality Stroke Does the patient have a stroke diagnosis?: No VTE Prior VTE?: No VTE Risk Level:: Medical - moderate - high VTE Device Contraindication: N/A - Device Ordered VTE Drug Contraindication: Treatment Not Indicated
[2025-08-30 16:11] LABS: Glucose, Whole Blood 244 mg/dL (60-115)
[2025-08-30 21:02] LABS: Glucose, Whole Blood 149 mg/dL (60-115)
[2025-08-30] MEDS: Insulin Glargine,Hum.rec.anlog 100 UNIT/ML 10 ML VIAL 34 UNIT SUBCUT (21:12)
[2025-08-31 00:16] VITALS: BP 149/65; PULSE 96; RESP 18; TEMP 35.8; O2SAT 99
[2025-08-31 07:47] LABS: Glucose, Whole Blood 100 mg/dL (60-115)
[2025-08-31 07:58] VITALS: BP 131/63; PULSE 81; RESP 20; TEMP 36.7; O2SAT 99
[2025-08-31] MEDS: Ferrous Sulfate 324 MG TABLET.DR PO (08:37)
[2025-08-31] MEDS: 0.9 % Sodium Chloride Flush 3 ML SYRINGE IVFLUSH ×3 (08:43→21:16)
[2025-08-31 11:05] LABS: Glucose, Whole Blood 192 mg/dL (60-115)
[2025-08-31 11:17] VITALS: BP 128/58
--- NOTE | 2025-08-31 13:19 | MHC.CM.PN ---
Cm spoke to family member, Dinorah, several times today to discuss DCP. Dinorah has said she cannot take pt. home until she has her all of her meds in hand and VNA lined up. CM was able to determine the correct VNA who has worked with this pt., it is [facility], does not use [facility], reports faxed to them at [phone], and phone call confirmation that they will assist pt. Provider notified of need for all scripts.
[2025-08-31 15:23] LABS: Glucose, Whole Blood 268 mg/dL (60-115)
[2025-08-31 16:00] VITALS: BP 142/66; PULSE 88; RESP 19; TEMP 36.2; O2SAT 100
[2025-08-31 16:54] LABS: Glucose, Whole Blood 245 mg/dL (60-115)
[2025-08-31 19:08] VITALS: BP 134/59; PULSE 89; RESP 18; TEMP 36.4; O2SAT 100
[2025-08-31 21:04] LABS: Glucose, Whole Blood 265 mg/dL (60-115)
[2025-08-31] MEDS: Insulin Glargine,Hum.rec.anlog 100 UNIT/ML 10 ML VIAL 34 UNIT SUBCUT (21:11)
[2025-09-01 03:46] VITALS: BP 138/64; PULSE 89; RESP 18; TEMP 36.2; O2SAT 99
[2025-09-01 07:31] LABS: Glucose, Whole Blood 104 mg/dL (60-115)
[2025-09-01 07:44] VITALS: BP 115/53; PULSE 83; RESP 20; TEMP 36.8; O2SAT 97
[2025-09-01] MEDS: 0.9 % Sodium Chloride Flush 3 ML SYRINGE IVFLUSH (08:14)
[2025-09-01] MEDS: Ferrous Sulfate 324 MG TABLET.DR PO (08:14)
[2025-09-01 11:57] LABS: Glucose, Whole Blood 330 mg/dL (60-115)
[2025-09-01 14:24] VITALS: PULSE 97; O2SAT 100
--- NOTE | 2025-09-01 15:15 | MHC.CM.PN ---
Pt. has been medically cleared, her dtr will pick her up this afternoon, home care to be provided by [facility].
[2025-09-01 16:00] VITALS: BP 101/52; PULSE 90; RESP 20; TEMP 37.1; O2SAT 100
[2025-09-01 16:32] LABS: Glucose, Whole Blood 196 mg/dL (60-115)
== END 2025-09-01 16:52 | disposition home health service (06) | DRG 139 ==
LOC: HO.ED 21:13 → HO.EDOVER 21:32 → HO.IMC 08-28 15:28
PROVIDERS: Hospitalist; Admitting Provider Physician Assistant; Emergency Provider Emergency Medicine Emergency Medical Services; PCP Registered Nurse; Visit Provider Nurse Practitioner Acute Care
DX: J18.9 Pneumonia, unspecified organism (principal); D61.818 Other pancytopenia; K76.82 Hepatic encephalopathy; E87.20 Acidosis, unspecified; K42.0 Umbilical hernia with obstruction, without gangrene; I85.10 Secondary esophageal varices without bleeding; E11.22 Type 2 diabetes mellitus with diabetic chronic kidney disease; F03.90 Unspecified dementia, unspecified severity, without behavioral disturbance, psychotic disturbance, mood disturbance, and anxiety; N18.2 Chronic kidney disease, stage 2 (mild); F20.9 Schizophrenia, unspecified; K75.81 Nonalcoholic steatohepatitis (NASH); R91.8 Other nonspecific abnormal finding of lung field; K74.69 Other cirrhosis of liver; E66.9 Obesity, unspecified; Z68.35 Body mass index [BMI] 35.0-35.9, adult; E87.8 Other disorders of electrolyte and fluid balance, not elsewhere classified; Z20.822 Contact with and (suspected) exposure to COVID-19; Z79.4 Long term (current) use of insulin; Z79.899 Other long term (current) drug therapy
CPT/HCPCS: 36415; 71045; 71275; 74176; 80048; 80053; 80076; 81001; 82947; 83690; 83880; 84145; 84484; 85025; 86850; 86900; 86901; 87086; 87502; 87635; 93005; 97161; 97530; 99285; J0696; J1271; P9073; Q9967

== ENCOUNTER → 2025-08-27 13:13 | Outpatient (BNV) | payer MEDICAID, SELFPAY | PROVIDERS: Admitting Provider Physician Assistant; Emergency Provider Emergency Medicine Emergency Medical Services; PCP Registered Nurse; Visit Provider Internal Medicine Cardiovascular Disease | DX: I45.10 Unspecified right bundle-branch block (principal) | CPT/HCPCS: 93010 ==

== ENCOUNTER → 2025-08-27 16:43 | Outpatient (BNV) | payer MEDICAID, SELFPAY | PROVIDERS: Emergency Provider Emergency Medicine Emergency Medical Services; PCP Registered Nurse; Visit Provider Radiology Diagnostic Radiology | DX: K74.60 Unspecified cirrhosis of liver (principal); R16.1 Splenomegaly, not elsewhere classified; K42.9 Umbilical hernia without obstruction or gangrene; K86.89 Other specified diseases of pancreas | CPT/HCPCS: 74176 ==

== ENCOUNTER → 2025-08-27 21:15 | Outpatient (BNV) | payer MEDICAID, SELFPAY | PROVIDERS: Admitting Provider Physician Assistant; Emergency Provider Emergency Medicine Emergency Medical Services; PCP Registered Nurse; Visit Provider Internal Medicine Medical Oncology | DX: R18.8 Other ascites (principal); G93.40 Encephalopathy, unspecified; R91.8 Other nonspecific abnormal finding of lung field | CPT/HCPCS: 99222 ==

== ENCOUNTER → 2025-08-27 21:15 | Outpatient (BNV) | payer MEDICAID, SELFPAY | PROVIDERS: Admitting Provider Physician Assistant; Emergency Provider Emergency Medicine Emergency Medical Services; PCP Registered Nurse; Visit Provider Internal Medicine Gastroenterology | DX: K74.60 Unspecified cirrhosis of liver (principal); K22.89 Other specified disease of esophagus | CPT/HCPCS: 99222 ==

== ENCOUNTER → 2025-08-27 21:15 | Outpatient (BNV) | payer MEDICAID, SELFPAY | PROVIDERS: Admitting Provider Physician Assistant; Emergency Provider Emergency Medicine Emergency Medical Services; PCP Registered Nurse; Visit Provider Nurse Practitioner Acute Care | DX: D69.6 Thrombocytopenia, unspecified (principal) | CPT/HCPCS: 99223; 99232; 99239 ==

== ENCOUNTER 2025-09-15 13:35 | Outpatient (REF) | payer MEDICAID, SELFPAY ==
--- OUTSIDE RECORDS SUMMARY | 2025-09-15 10:00 | XMS_ITS | Encounter Summary ---
Author Organization [employer] Address [address] [place] [address] [address] [place] [address] Care Team Providers Care Account Resolution Analyst Name Role Phone Susan [facility] Primary Care Provider [phone] Andree Ulloa PharmD Unavailable [phone] Reason for Referral * Imaging (Urgent) - Authorized Specialty Diagnoses / Procedures Referred By Ivelisse t Referred To Contact Radiology Diagnoses Abnormal CT scan of lung Procedures CT Chest w/ Contrast Tyler Jones FNP [address] [place] [address] Phone: tel: fax: [address] [address] Phone: tel: fax: Referral ID Status Reason Start Date Expiration Date V isits Requested Visits Authorized [id number] Authorized 09/15/2025 09/15/2026 1 1 * Consultation (Routine) - Pending Review Specialty Diagnoses / Procedures Referred By Contmichael t Referred To Contact Optometry Diagnoses Vision disorder Tyler Jones FNP [address] [place] [address] Phone: tel: fax: Referral ID Status Reason Start Date Expiration Date Visits Requested Visits Authorized [id number] Pending Review Specialty Services Required 09/15/2026 1 1 Encounter Details Date Type Department Care Team (Latest Contact Info) Description 09/15/2025 10:00 AM EST Office Visit [facility] [address] [place] [address] Tyler Jones FNP [address] [place] [address] Acute cystitis without hematuria (Primary Dx); Type 2 diabetes mellitus without complication, with long-term current use of insulin (HCC); Vision disorder; Acute bilateral low back pain without sciatica; Hepatic encephalopathy (CMS/HCC) (HCC); Abnormal CT scan of lung; Schizophrenia, unspecified type (HCC); Cirrhosis of liver with ascites, unspecified hepatic cirrhosis type (HCC) Social History Tobacco Use Types Packs/Day Years Used Date Smoking Tobacco: Former Cigarettes Q uit: 1991 Passive Smoke Exposure: Never Smokeless Tobacco: Never Tobacco Cessation:Counseling Given: Not Answered Alcohol Use Standard Drinks/Week Comments Never 0 (1 standard drink = 0.6 oz pur e alcohol) Depression Answer Date Recorded Patient Health Questionnaire-9 Score 8 09/15/2025 Patient Health Questionnaire-9 Score 8 09/15/2025 Last PHQ-9: Questionnaire Data Not on file 1 11/15/2024 Housing Stability Answer Date Recorded What is [...] Answer Date Recorded Patient Health Questionnaire-2 Score 2 09/15/2025 Internet Access Answer Date Recorded Internet Access [...] Sign Reading Time Taken Comments Blood Pressure 95/60 09/15/2025 10:27 AM EST Pulse 86 09/15/2025 10:27 AM EST Temperature 37 C (98.6 F) 09/15/2025 10:27 AM EST Respiratory Rate 17 09/15/2025 10:27 AM EST Oxygen Saturation 99% 09/15/2025 10:27 AM EST Inhaled Oxygen Concentration - - Weight 85.7 kg (189 lb) 09/15/2025 10:27 AM EST Height 157.5 cm (5' 2 ) 09/15/2025 10:27 AM EST Body Mass Index 34.57 09/15/2025 10:27 AM EST documented in this encounter Functional Status * Over the past 2 weeks, how often have you been bothered by any of the following problems? Question Answer Date of Assessment Author Patient Health Questionnaire -2 Score 2 09/15/2025 11:10 AM Parker Damon [place] * Little interest or pleasure in doing things Answer Date of Assessment Author More than half the days 09/15/2025 11:10 AM Parker Damon [place] * Feeling down, depressed, or hopeless Answer Date of Assessment Author Not at all 09/15/2025 11:10 AM Parker Damon [place] * Trouble falling or staying asleep, or sleeping too much Answer Date of Assessment Author More than half the days 09/15/2025 11:10 AM Parker Damon [place] * Feeling tired or having little energy Answer Date of Assessment Author More than half the days 09/15/2025 11:10 AM Parker Damon MA * Poor appetite or overeating Answer Date of Assessment Author Not at all 09/15/2025 11:10 AM Parker Damon [place] * Feeling bad about yourself - or that you are a failure or have let yourself or your family down Answer Date of Assessment Author Not at all 09/15/2025 11:10 AM Parker Damon MA * Trouble concentrating on things, such as reading the newspaper or watching television Answer Date of Assessment Author More than half the days 09/15/2025 11:10 AM Parker Damon MA * Moving or speaking so slowly that other people could have noticed? Or the opposite - being so fidgety or restless that you have been moving around a lot more than usual. Answer Date of Assessment Author Not at all 09/15/2025 11:10 AM Parker Damon MA * Thoughts that you would be better off or hurting yourself in some way Answer Date of Assessment Author Not at all 09/15/2025 11:10 AM Parker Damon MA * Patient Health Questionnaire-9 Score Answer Date of Assessment Author 8 09/15/2025 11:10 AM Parker Damon MA * Over the last 2 weeks, how often have you been bothered by any of the following problems? Question Answer Date of Assessment Author Feeling nervous, anxious, or on edge 0 09/15/2025 11:10 AM Parker Damon MA Not being able to stop or co ntrol worrying 0 09/15/2025 11:10 AM Parker Damon MA Worrying too much about diff erent things 0 09/15/2025 11:10 AM Parker Damon MA Trouble relaxing 0 09/15/2025 11:10 AM Parker Damon MA Being so restless that it is hard to sit still 0 09/15/2025 11:10 AM Parker Damon MA Becoming easily annoyed or irritable 0 09/15/2025 11:10 AM Praker Dam[place] MA Feeling afraid as if somethi ng awful might happen 0 09/15/2025 11:10 AM Parker Damon MA ALEXANDER-7 Total Score 0 09/15/2025 11:10 AM Parker Damon MA * How difficult have these problems made it for you to do your work, take care of things at home, or get along with other people? Answer Date of Assessment Author Somewhat difficult 09/15/2025 11:10 AM Parker Jin MA documented as of this encounter Miscellaneous Notes * Assessment & Plan Note - KAROLINA Oneil - 09/15/2025 10:00 AM EST Associated Problem(s): Schizophrenia (HCC) Orders: benztropine (Cogentin) 0.5 MG tablet; Take 1 tablet (0.5 mg) by mouth at bedtime. haloperidol (Haldol) 10 MG tablet; Take 0.5 tablets (5 mg) by mouth Once per day AND 1 tablet (10 mg) at bedtime. * Assessment & Plan Note - KAROLINA Oneil - 09/15/2025 10:00 AM EST Associated Problem(s): Cirrhosis of liver (CMS/HCC) (HCC) Orders: furosemide (Lasix) 40 MG tablet; Take 1 tablet (40 mg) by mouth Once per day. lactulose (Chronulac) 10 GM/15ML solution; Take 30 mL (20 g) by mouth 3 times daily. documented in this encounter Plan of Treatment Upcoming Encounters Date Type Department Care Team (Late st Contact Info) Description 09/20/2025 10:00 AM EST Office Visit [facility] [address] [place] [address] SheridanAna FNP [address] [place] [address] Scheduled Orders Name Type Priority Associated Diagnoses Orde r Schedule Culture, Urine, Routine Microbiology Routine Acute cystitis without hematuria Ordered: 09/15/2025 Hepatic Function Panel Lab Routine Hepatic encephalopathy (CMS/HCC) (HCC) Expected: 09/15/2025 (Approximate), Expires: 09/15/2026 CBC auto differential Lab Routine Hepatic encephalopathy (CMS/HCC) (HCC) Expected: 09/15/2025 (Approximate), Expires: 09/15/2026 Prothrombin Time-INR Lab Routine Hepatic encephalopathy (CMS/HCC) (HCC) Expected: 09/15/2025, Expires: 09/15/2026 CT Chest w/ Contrast Imaging Urgent Abnormal CT scan of lung Expected: 09/29/2025, Expires: 12/16/2025 Scheduled Referrals Name Type Priority Associated Diagnoses Orde r Schedule Referral to Optometry Outpatient Referral Routine Vision disorder Expected: 09/15/2025 (Approximate), Expires: 09/15/2026 documented as of this encounter Goals Goal [...] PharmD Hemoglobin A1c < 8 Result Component 7.7( 10:33 AM EST) No Andree Ulloa PharmD Help patients manage their type 2 diabetes Care Plan Help patients manage their type 2 diabetes No Kirstie Barajas PharmD Weekly blood pressure task Care Plan Weekly blood pressure task No Kirstie Barajas PharmD Help patients manage their type 2 diabetes Care Plan Help patients manage their type 2 diabetes No Taes-Gambl eSussysa, PharmD Patient has chronic kidney disease Care Plan Patient has chronic kidney disease No Taes-Gambl eKirstie, PharmD Weekly blood pressure task Care Plan Weekly blood pressure task No Taes-Teral Sussy jimenezsa, PharmD Patient has chronic kidney disease Care Plan Patient has chronic kidney disease No Taes-Gambl eSussysa, PharmD Weekly blood pressure task Care Plan Weekly blood pressure task No Ivana Becerra MA Weekly blood pressure task Care Plan Weekly blood pressure task No Ivana Becerra MA Patient has chronic kidney disease Care Plan Patient has chronic kidney disease No Ivana Becerra MA Patient has chronic kidney disease Care Plan Patient has chronic kidney disease No Ivana Becerra MA Weekly blood pressure task Care Plan Weekly blood pressure task No Yvette Naik Weekly blood pressure task Care Plan Weekly blood pressure task No Heena Yvette Patient has chronic kidney disease Care Plan Patient has chronic kidney disease No Heena Yvette Patient has chronic kidney disease Care Plan Patient has chronic kidney disease No Yvette Naik Weekly blood pressure task Care Plan Weekly blood pressure task No Salazar, Ines Weekly blood pressure task Care Plan Weekly blood pressure task No Martin Ines Patient has chronic kidney disease Care Plan Patient has chronic kidney disease No Salazar, Ines Patient has chronic kidney disease Care Plan Patient has chronic kidney disease No Martin Ines Weekly blood pressure task Care Plan Weekly blood pressure task No Harrison Salazar PharmFelicita Weekly blood pressure task Care Plan Weekly blood pressure task No Harrison [place], PharmD Patient has chronic kidney disease Care Plan Patient has chronic kidney disease No Harrison [place] PharmD Patient has chronic kidney disease Care Plan Patient has chronic kidney disease No Harrison [place], PharmD Weekly blood pressure task Care Plan Weekly blood pressure task No Parker Musa MA Weekly blood pressure task Care Plan Weekly blood pressure task No Parker Musa MA Patient has chronic kidney disease Care Plan Patient has chronic kidney disease No Parker Musa MA Patient has chronic kidney disease Care Plan Patient has chronic kidney disease No Parker Musa MA Weekly blood pressure task Care Plan Weekly blood pressure task No Parker Musa MA Weekly blood pressure task Care Plan Weekly blood pressure task No Parker Musa MA Patient has chronic kidney disease Care Plan Patient has chronic kidney disease No Parker Musa MA Patient has chronic kidney disease Care Plan Patient has chronic kidney disease No Parker Musa MA Weekly blood pressure task Care Plan Weekly blood pressure task No Colon Yojana Lau Weekly blood pressure task Care Plan Weekly blood pressure task No Colon Yojana Lau Patient has chronic kidney disease Care Plan Patient has chronic kidney disease No Colon Sid Yojana Patient has chronic kidney disease Care Plan Patient has chronic kidney disease No Colon Yojana Lau Weekly blood pressure task Care Plan Weekly blood pressure task No Manuela Mukherjee MA Weekly blood pressure task Care Plan Weekly blood pressure task No Manuela Mukherjee MA Patient has chronic kidney disease Care Plan Patient has chronic kidney disease No Manuela Mukherjee MA Patient has chronic kidney disease Care Plan Patient has chronic kidney disease No Manuela Mukherjee MA Weekly blood pressure task Care Plan Weekly blood pressure task No Manuela Mukherjee MA Weekly blood pressure task Care Plan Weekly blood pressure task No Manuela Mukherjee MA Patient has chronic kidney disease Care Plan Patient has chronic kidney disease No Manuela Mukherjee MA Patient has chronic kidney disease Care Plan Patient has chronic kidney disease No Maunela Mukherjee MA documented as of this encounter Procedures Procedure Name Priority Date/Time Associated Diagnosis Comments POCT URINALYSIS DIPSTICK Routine 09/15/2025 11:00 AM EST Acute cystitis without hematuria POCT GLYCATED HEMOGLOBIN, TOTAL Routine 09/15/2025 10:33 AM EST Type 2 diabetes mellitus without complication, with long-term current use of insulin ([facility]) POCT GLUCOSE Routine 09/15/2025 10:32 AM EST Type 2 diabetes mellitus without complication, with long-term current use of insulin ([facility]) documented in this encounter Results * (ABNORMAL) POCT Urinalysis (09/15/2025 11:00 AM EST) Color, UA Yellow Clarity, UA Clear Glucose, UA Negative Bilirubin, UA Negative Ketones, UA Negative Spec Grav, UA 1.015 Blood, UA Positive(A) Negative, None Detected Comment:SMALL pH, UA 6.0 Protein, UA Negative Urobilinogen, UA 0.2 Leukocytes, UA Trace (15) Negative, Rare, Trace, 1+ (17), 2+ (35), 3+ (70), Trace (15) Comment:LARGE Nitrite, UA Negative Negative, None Detected Appearance, UA YELLOW [employer] Lot # [id number] Lot# Expiration Date Urine (Urine, Random) 09/15/2025 11:00 AM EST Tyler Jones [facility] POINT OF CARE TEST ENTER/EDIT ORDERABLES Final Result * (ABNORMAL) POCT Hgb A1c (09/15/2025 10:33 AM EST) Hemoglobin A1C 7.7(A) 4.0 - 5.7 % QC Media Lot # [id number] Lot# Expiration Date ,803,128 Blood 09/15/2025 10:3 3 AM EST [facility] POINT OF CARE TEST ENTER/EDIT ORDERABLES Final Result * (ABNORMAL) POCT Glucose (09/15/2025 10:32 AM EST) Pathologist [facility] Glucose Blood, POC 337(A) 60 - 200 mg/dL Comment:RANDOM QC Media Lot # [id number] Lot# Expiration Date [id number] Blood Capillary blood specimen / Unknown 09/15/2025 10:32 AM EST [facility] POINT OF CARE TEST ENTER/EDIT ORDERABLES Final Result documented in this encounter Visit Diagnoses Diagnosis Acute cystitis without hematuria- Primary Type 2 diabetes mellitus without complication, with long-term current use of insulin (HCC) Vision disorder Unspecified visual disturbance Acute bilateral low back pain without sciatica Hepatic encephalopathy (CMS/HCC) (HCC) Hepatic encephalopathy Abnormal CT scan of lung Schizophrenia, unspecified type (HCC) Cirrhosis of liver with ascites, unspecified hepatic cirrhosis type (HCC) documented in this encounter Additional Health Concerns Active Problems Noted Date Diagnosed Date Help patients manage their type 2 diabetes 09/01 Weekly blood pressure task 09/01/2025 Help patients manage their type 2 diabetes 09/01 Patient has chronic kidney disease 09/01/2025 Weekly blood pressure task 09/01/2025 Patient has chronic kidney disease 09/01/2025 Weekly blood pressure task 09/06/2025 Weekly blood pressure task 09/06/2025 Patient has chronic kidney disease 09/06/2025 Patient has chronic kidney disease 09/06/2025 Weekly blood pressure task 09/07/2025 Weekly blood pressure task 09/07/2025 Patient has chronic kidney disease 09/07/2025 Patient has chronic kidney disease 09/07/2025 Weekly blood pressure task 09/07/2025 Weekly blood pressure task 09/07/2025 Patient has chronic kidney disease 09/07/2025 Patient has chronic kidney disease 09/07/2025 Weekly blood pressure task 09/08/2025 Weekly blood pressure task 09/08/2025 Patient has chronic kidney disease 09/08/2025 Patient has chronic kidney disease 09/08/2025 Weekly blood pressure task 09/14/2025 Weekly blood pressure task 09/14/2025 Patient has chronic kidney disease 09/14/2025 Patient has chronic kidney disease 09/14/2025 Weekly blood pressure task 09/14/2025 Weekly blood pressure task 09/14/2025 Patient has chronic kidney disease 09/14/2025 Patient has chronic kidney disease 09/14/2025 Weekly blood pressure task 09/15/2025 Weekly blood pressure task 09/15/2025 Patient has chronic kidney disease 09/15/2025 Patient has chronic kidney disease 09/15/2025 Weekly blood pressure task 09/15/2025 Weekly blood pressure task 09/15/2025 Patient has chronic kidney disease 09/15/2025 Patient has chronic kidney disease 09/15/2025 Weekly blood pressure task 09/15/2025 Weekly blood pressure task 09/15/2025 Patient has chronic kidney disease 09/15/2025 Patient has chronic kidney disease 09/15/2025 Assessment Noted Time PHQ-9 Depression Total Score: 8 09/15/20 11:10 AM EST documented as of this encounter Care Teams Account Resolution Analyst Relationship Specialty Start Date End Date [facility] [address] [place] [address] PCP - General Family Medicine 04/05/22 Andree Ulloa PharmD [address] [place] [address] Pharmacist Internal Medicine 05/09/23 Flavia Segundo Computer Support Specialist InstructorNews Intern 10/10/23 Gabrielle Fitch Computer Support Specialist InstructorNews Intern 11/05/24 [employer] 02/06/25 documented as of this encounter
--- OUTSIDE RECORDS SUMMARY | 2025-09-15 16:42 | XMS_ITS | Encounter Summary ---
Author Organization [employer] Address [address] [facility] 7[address] [place] [address] Care Team Providers Care Dispatcher Chief Oil Name Role Phone [facility] Primary Care Provider [phone] Andree Ulloa PharmD Unavailable [phone] Maude [place] RN Unavailable Jacquie Sarkar Unavailable Jacquie Sarkar Unavailable Reason for Visit * Reason Comments Med Refill Encounter Details Date Type Department Care Team (Late st Contact Info) Description 10/03/2023 Refill [facility] [address] [place], [place] [phone] [facility] [address] [place] [address] Tardive dyskinesia Social History Tobacco Use Types [...] the past 12 months, has t he [place] [place], oil or water [employer] threatened to shut off services in [...] Description 09/20/2025 10:00 AM EST Office Visit [facility] [address] [place] [address] [facility] [address] [place] [address] documented as of this encounter Goals Goal [...] 10:33 AM EST) No Andree Ulloa PharmD documented as of this encounter Visit Diagnoses Diagnosis Tardive dyskinesia Subacute dyskinesia due to drugs documented in this encounter Additional Health Concerns Assessment Noted Time PHQ-9 Depression Total Score: 0 11/13/20 23 12:14 PM EST documented as of this encounter Care Teams Dispatcher Chief Oil Relationship Specialty Start Date End Date Ana Davis FNP [address] [place] [address] PCP - General Family Medicine 04/05/22 Andree Ulloa PharmD [address] [place], [place] [phone] Pharmacist Internal Medicine 05/09/23 Maude [place], MARQUITA [address] [place] [id number] Scientist ElectronicsInclusion Teacher 08/27/24 12/22/24 Jacquie Sarkar 05/20/25 06/03/25 Jacquie Sarkar 06/10/25 06/15/25 Flavia Segundo Header Set Up OperatorInclusion Teacher 10/10/23 [employer] 08/14/24 02/11/25 Gabrielle Fitch Header Set Up OperatorInclusion Teacher 11/05/24 [employer] 02/06/25 documented as of this encounter
--- OUTSIDE RECORDS SUMMARY | 2025-09-15 16:42 | XMS_ITS | Encounter Summary ---
Author Organization [employer] Address [address] [facility] 7[address] [place] [address] Care Team Providers Care Squeegee Finisher Name Role Phone [facility] Primary Care Provider [phone] Andree Ulloa PharmD Unavailable [phone] Maude [place] RN Unavailable [phone] Jacquie Sarkar Unavailable Jacquie Sarkar Unavailable Reason for Visit * Reason Comments Med Refill Encounter Details Date Type Department Care Team (Late st Contact Info) Description 10/01/2023 Refill [facility] [address] [place], [place] [phone] [facility] [address] [place] [address] Tardive dyskinesia; Schizophrenia, unspecified type (CMS/HCC) Social [...] the past 12 months, has t he [place], gas, oil or water company threatened to [...] Description 09/20/2025 10:00 AM EST Office Visit [facility] [address] [place] [address] [facility] [address] [place] [address] documented as of this encounter Goals Goal [...] documented as of this encounter Care Teams Squeegee Finisher Relationship Specialty Start Date End Date Ana Davis FNP [address] [place] [address] PCP - General Family Medicine 04/05/22 Andree Ulloa PharmD [address] [place] [address] Pharmacist Internal Medicine 05/09/23 Maude [place] RN [address] [place] [id number] Bell RingerTechnology Coordinator 08/27/24 12/22/24 Jacquie Sarkar 05/20/25 06/03/25 Jacquie Sarkar 06/10/25 06/15/25 Flavia Segundo Requirements AnalystTechnology Coordinator 10/10/23 [employer] 08/14/24 02/11/25 Gabrielle Fitch Requirements AnalystTechnology Coordinator 11/05/24 [employer] 02/06/25 documented as of this encounter
--- OUTSIDE RECORDS SUMMARY | 2025-09-15 16:42 | XMS_ITS | Encounter Summary ---
Author Organization [employer] Address [address] [place] [address] Care Team Providers Care Sheriff Sergeant Name Role Phone [facility] Primary Care Provider Andree Ulloa PharmD Unavailable [phone] Reason for Visit * Reason Onset Date Comments Chart Prep 09/14/2025 Encounter Details Date Type Department Care Team ([facility] st Contact Info) Description 09/14/2025 Telephone [facility] MEDICINE [address] [place], [place] [phone] [facility] [address] [place] [address] Chart Prep Social History Tobacco Use Types [...] Telephone Encounter - Parker Musa MA - 09/14/2025 8:19 AM EST Chart Prep Labs: done Images: done Referrals: not applicable Vaccines due: Covid, Flu, Hep A, RSV, and Zoster Screenings: colonoscopy, mammogram, pap smear, eye exam, and foot examAlcohol/Substance Use Screening Overdue care gaps: SBIRT, SDOH, and Oral health [id number] GLU DISA HDF NOTES ARE IN CHART documented in this encounter Plan of Treatment Upcoming Encounters Date Type Department Care Team (Late st Contact Info) Description 09/20/2025 10:00 AM EST Office Visit [facility] MEDICINE [address] [place] [address] Ana Davis FNP [address] [place] [address] documented as of this encounter Goals Goal [...] Result Component 7.7( 10:33 AM EST) No PuiaAndree PharmFelicita Help patients manage their type 2 diabetes Care Plan Help patients manage their type 2 diabetes No Piers-Gambl eSussysa, PharmD Weekly blood pressure task Care Plan Weekly blood pressure task No Piers-Gambl eSussysa PharmD Help patients manage their type 2 diabetes Care Plan Help patients manage their type 2 diabetes No Piers-Gambl e, Kirstie, PharmD Patient has chronic kidney disease Care Plan Patient has chronic kidney disease No Piers-Gambl eSussysa PharmD Weekly blood pressure task Care Plan Weekly blood pressure task No Piers-Gambl e, Kirstie PharmD Patient has chronic kidney disease Care [...] Weekly blood pressure task No Yvette Naik Patient has chronic kidney disease Care Plan Patient has chronic kidney disease No Yvette Naik Patient has chronic kidney disease Care Plan Patient has chronic kidney disease No Yvette Naik Weekly blood pressure task Care Plan Weekly blood pressure task No Ines Salazar Weekly blood pressure task Care Plan Weekly blood pressure task No Ines Salazar Patient has chronic kidney disease Care Plan Patient has chronic kidney disease No Ines Salazar Patient has chronic kidney disease Care Plan Patient has chronic kidney disease No Ines Salazar Weekly blood pressure task Care Plan Weekly blood pressure task No Harrison Salazar PharmD Weekly blood pressure task Care Plan Weekly blood pressure task No Harrison Salazar PharmD Patient has chronic kidney disease Care Plan Patient has chronic kidney disease No Harrison Salazar PharmD Patient has chronic kidney disease Care Plan Patient has chronic kidney disease No Harrison Salazar PharmD Weekly blood pressure task Care Plan [...] Plan Weekly blood pressure task No Colon Lau, Yojana Weekly blood pressure task Care Plan Weekly blood pressure task No Colon Lau, Yojana Patient has chronic kidney disease Care Plan Patient has chronic kidney disease No Colon Lau, Yojana Patient has chronic kidney disease Care Plan Patient has chronic kidney disease No Colon Lau Yojana Weekly blood pressure task Care Plan Weekly [...] chronic kidney disease No Manuela Mukherjee MA documented as of this encounter Visit Diagnoses Not on filedocumented in this encounter Additional Health Concerns Active [...] Noted Time PHQ-9 Depression Total Score: 10 11/18/ 025 1:44 PM EST documented as of this encounter Care Teams Sheriff Sergeant Relationship Specialty Start Date End Date Ana Davis FNP [address] [place] [address] PCP - General Family Medicine 04/05/22 Andree Ulloa, ChelyD [address] [place] [address] Pharmacist Internal Medicine 05/09/23 Flavia Segundo Polisher NumeralCan Filling Room Sweeper 10/10/23 Gabrielle Fitch Polisher NumeralCan Filling Room Sweeper 11/05/24 [employer] 02/06/25 documented as of this encounter
--- OUTSIDE RECORDS SUMMARY | 2025-09-15 16:42 | XMS_ITS | Encounter Summary ---
Author Organization [employer] Address [address] [facility] 7t [place] [address] Care Team Providers Care Loan Documentation Specialist Name Role Phone [facility] Primary Care Provider [phone] Andree Ulloa PharmD Unavailable [phone] Maude Dennis RN Unavailable [phone] Jacquie Sarkar Unavailable Jacquie Sarkar Unavailable Reason for Visit * Reason Comments Med Refill Encounter Details Date Type Department Care Team (Late st Contact Info) Description 10/03/2023 Refill [facility] [address] [place], [place] [phone] [facility] [address] [place] [address] Schizophrenia, unspecified type (CMS/HCC) Social History Tobacco [...] the past 12 months, has t he [place], gas, oil or water [employer] threatened to shut off services in your [...] Description 09/20/2025 10:00 AM EST Office Visit [facility] MEDICINE [address] [place] [address] [place] Ana [facility] [address] [place] [address] documented as of this encounter Goals Goal [...] documented as of this encounter Care Teams Loan Documentation Specialist Relationship Specialty Start Date End Date Ana Davis FNP [address] [place] [address] PCP - General Family Medicine 04/05/22 Andree Ulloa PharmD [address] [place], [place] [phone] Pharmacist Internal Medicine 05/09/23 Maude Dennis, MARQUITA [address] [place] [address] School Social WorkerStringed Instrument Repairer 08/27/24 12/22/24 Jacquie Sarkar 05/20/25 06/03/25 Jacquie Sarkar 06/10/25 06/15/25 Flavia Segundo Paid Search ManagerStringed Instrument Repairer 10/10/23 [employer] 08/14/24 02/11/25 Gabrielle Fitch Paid Search ManagerStringed Instrument Repairer 11/05/24 [employer] 02/06/25 documented as of this encounter
--- OUTSIDE RECORDS SUMMARY | 2025-09-15 16:42 | XMS_ITS | Encounter Summary ---
Author Organization [employer] Address [address] [facility] 7t [place] [address] Care Team Providers Care Patient Portal Concierge Name Role Phone Ana Davis TRAP OPERATOR Primary Care Provider [phone] Andree Ulloa PharmD Unavailable [phone] Jacquie Sarkar Unavailable Jacquie Sarkar Unavailable Reason for Referral * Consultation (Routine) - Authorized Specialty Diagnoses / Procedures Referred By Ivelisse segura Referred To Contact Pharmacy Diagnoses Type 2 diabetes mellitus without complication, with long-term current use of insulin (HCC) Catalina Mednez MD [address] [place] [address] Phone: tel: fax: Referral ID Status Reason Start Date Expiration Date Visits Requested Visits Authorized [id number] Authorized Consult and Treat 02/23/2025 02/23/2026 6 6 Encounter Details Date Type Department Care Team (Late st Contact Info) Description 02/23/2025 Orders Only [facility] MEDICINE [address] [place], [place] [phone] Catalina Mendez MD [address] [place], [place] [phone] Type 2 diabetes mellitus without complication, with [...] t he electric, gas, oil or water [employer] threatened to shut off services in your [...] Description 09/20/2025 10:00 AM EST Office Visit [facility] MEDICINE [address] [place], [place] [phone] [facility] [address] [place] [address] Scheduled Referrals Name Type Priority Associated Diagnoses Orde r Schedule Referral to Pharmacy CDTM Outpatient Referral Routine Type 2 diabetes mellitus without complication, with long-term current use of insulin ([facility]) Ordered: 02/23/2025 documented as of [...] complication, with long-term current use of insulin ([facility])- Primary documented in this encounter Additional Health Concerns Assessment Noted Time PHQ-9 Depression Total Score: 10 025 1:44 PM EST documented as of this encounter Care Teams Patient Portal Concierge Relationship Specialty Start Date End Date [facility] [address] [place] [address] PCP - General Family Medicine 04/05/22 Andree Ulloa PharmD [address] [place] [address] Pharmacist Internal Medicine 05/09/23 Jacquie Sarkar 05/20/25 06/03/25 Jacquie Sarkar 06/10/25 06/15/25 Flavia Segundo Hospitality InternDelivery Director 10/10/23 Gabrielle Fitch Hospitality InternDelivery Director 11/05/24 [employer] 02/06/25 documented as of this encounter
--- OUTSIDE RECORDS SUMMARY | 2025-09-15 16:42 | XMS_ITS | Encounter Summary ---
Author Organization [employer] Address [address] [facility] 7t [place] [address] Care Team Providers Care Bilingual Inside Sales Representative Name Role Phone [facility] Primary Care Provider [phone] Andree Ulloa PharmD Unavailable [phone] Jacquie Sarkar Unavailable Jacquie Sarkar Unavailable Reason for Visit * Reason Onset Date Comments Med Refill 02/09/2025 Encounter Details Date Type Department Care Team (Late st Contact Info) Description 02/09/2025 Telephone [facility] MEDICINE [address] [place], [place] [phone] [facility] [address] [place] [address] Med Refill Social History Tobacco Use Types [...] for this patient to enroll care in [facility] - Diabetes clinic. Please send at your earliest convenience. * Telephone Encounter - Reinaldo Darling - 02/09/2025 9:50 AM EDT TC from pt requesting medication refill. Medications needing refill : insulin degludec (Tresiba FlexTouch) 200 UNIT/ML injection Blood Glucose Monitoring Suppl (D-Care Glucometer) w/Device kit To be sent to: [facility]- - [place], [place] - [address] [facility] documented in this encounter Plan of Treatment Upcoming Encounters Date Type Department Care Team ([facility] st Contact Info) Description 09/20/2025 10:00 AM EST Office Visit [facility] MEDICINE [address] [place] [phone] [facility] [address] [place] [address] documented as of this encounter Goals Goal [...] documented as of this encounter Care Teams Bilingual Inside Sales Representative Relationship Specialty Start Date End Date [facility] [address] [place] [address] PCP - General Family Medicine 04/05/22 Andree Ulloa PharmD [address] [place] [address] Pharmacist Internal Medicine 05/09/23 Jacquie Sarkar 05/20/25 06/03/25 Jacquie Sarkar 06/10/25 06/15/25 Flavia Segundo Clothespin Drier OperatorHawk Missile System Crewmember 10/10/23 [employer] 08/14/24 02/11/25 Gabrielle Fitch Clothespin Drier OperatorHawk Missile System Crewmember 11/05/24 [employer] 02/06/25 documented as of this encounter
--- OUTSIDE RECORDS SUMMARY | 2025-09-15 16:42 | XMS_ITS | Encounter Summary ---
Author Organization [employer] Address [address] [facility] 7t [place] [address] Care Team Providers Care Ui Software Engineer Name Role Phone [facility] Primary Care Provider [phone] Andree Ulloa PharmD Unavailable [phone] Reason for Visit * Reason Onset Date Comments chart prep 09/15/2025 Encounter Details Date Type Department Care Team ([facility] st Contact Info) Description 09/15/2025 Telephone [facility] MEDICINE [address] [place], [place] [phone] [facility] [address] [place] [address] chart prep Social History Tobacco Use Types Packs/Day Years [...] AM EDT documented as of this encounter Functional Status * Over the [...] on edge 0 09/15/2025 11:10 AM Parker aDmon MA Not being able to stop or [...] annoyed or irritable 0 09/15/2025 11:10 AM Parker Damon MA Feeling afraid as if somethi [...] Assessment Author Somewhat difficult 09/15/2025 11:10 AM EST Parker Koehler MA documented as of this encounter Miscellaneous Notes * Telephone Encounter - Manuela Mukherjee MA - 09/15/2025 12:00 PM EST Chart Prep Labs: not done Images: not done Referrals: appointment pending Vaccines due: Covid, Flu, Hep A, RSV, and Zoster Screenings: mammogram, pap smear, eye exam, and foot exam Overdue care gaps: Glucose, SBIRT, SDOH, PHQ-9, ALEXANDER-7, and Disability screen documented in this encounter Plan of Treatment Upcoming Encounters Date Type Department Care Team (Late st Contact Info) Description 09/20/2025 10:00 AM EST Office Visit [facility] MEDICINE [address] [place], [place] [phone] [facility] [address] [place], [place] [phone] documented as of this encounter Goals Goal [...] Weekly blood pressure task No Kirstie Barajas PharmFelicita Help patients manage their type 2 diabetes Care Plan Help patients manage their type 2 diabetes No Kirstie Barajas PharmD Patient has chronic kidney disease Care Plan Patient has chronic kidney disease No Kirstie Barajas PharmD Weekly blood pressure task Care Plan Weekly blood pressure task No Taes-Teral Kirstie jimenez PharmD Patient has chronic kidney disease Care Plan Patient has chronic kidney disease No Kirstie Barajas PharmD Weekly blood pressure [...] Care Plan Weekly blood pressure task No Yojana Elkins Weekly blood pressure task Care Plan Weekly blood pressure task No Yojana Elkins Patient has chronic kidney disease Care Plan Patient has chronic kidney disease No Yojana Elkins Patient has chronic kidney disease Care Plan Patient has chronic kidney disease No Yojana Elkins Weekly blood pressure task Care Plan Weekly [...] documented as of this encounter Care Teams Ui Software Engineer Relationship Specialty Start Date End Date Susan Ana, LEGAL WORD PROCESSOR [address] [place] [address] PCP - General Family Medicine 04/05/22 Andree Ulloa, Cesia [address] [place] [address] Pharmacist Internal Medicine 05/09/23 Flavia Segundo Filter Screen CleanerStay Cutter 10/10/23 Gabrielle Fitch Filter Screen CleanerStay Cutter 11/05/24 [employer] 02/06/25 documented as of this encounter
--- OUTSIDE RECORDS SUMMARY | 2025-09-15 16:42 | XMS_ITS | Clinical Summary ---
Author Organization [facility] Address [address] [facility] [address] [place] [address] Phone Care Team Providers Care Child Care Group Leader Name Role Phone Unavailable Primary Care Provider [...] morning. 3 Active Insulin Pen Needle (Pen Parker 01/03 ) 31G X 5 MM misc [...] Visit [facility] [address] [place] [phone] Rigo Freed MD [address] [facility] [address] [place] [phone] Health Maintenance Due Date Last Done Comments [...]
--- OUTSIDE RECORDS SUMMARY | 2025-09-15 16:42 | XMS_ITS | Data Portability ---
Author Organization [facility], Main Office Address [address] [address] [place] [address] Care Team Providers Care Shop Coordinator Name Role Phone HYACINTH TAYLOR - 2ND [...] and Address Organization Details Recorded Time Asthenia 14314368 Active 2024 LAVERNE HARRELL NP [address] [facility], [address], [place], [address], [facility] 5 14:05:42 Acute kidney injury 51264006 Active 2024 LAVERNE HARRELL NP [address] [facility], [address], [place], [address], [facility] 5 14:09:14 Chronic hyponatremia 17955931 Active 2024 LAVERNE HARRELL NP [address] [facility], [address], [place], [address], [facility] [employer] [facility] 5 14:09:15 Chronic hyperkalemia 20524996 Active 2024 LAVERNE HARRELL NP [address] [facility], [address], [place], [address], [facility] 5 14:09:18 Cirrhosis of liver 67655555 Active 2024 LAVERNE HARRELL NP [address] [facility], [address], [place], [address], [facility] 5 14:09:19 Hepatic encephalopathy 52600244 Active 2024 LAVERNE HARRELL NP [address] [facility], [address], [place], [address], [facility] [employer] [facility] 5 14:09:20 Renal disorder due to type 2 diabetes mellitus 242375171 Active 2024 LAVERNE HARRELL NP [address] [facility], [address], [place], [address], [facility] 5 14:09:21 Chronic anemia 162264629 Active 2024 LAVERNE HARRELL NP [address] [facility], [address], [place], [address], [facility] 5 14:09:23 Thrombocytopen ic disorder 784560336 Active 2024 LAVERNE HARRELL NP [address] [facility], [address], [place], [address], [facility] 5 14:09:25 Pancytopenia 303356327 Active 2024 LAVERNE HARRELL NP [address] [facility], [address], [place], [address], [facility] 14:11:13 Problem Notes None recorded. Medical Equipment None Reported. Allergies Allergen ID Allergen Name Allergen Category Reaction Reaction Severity Criticality Documentation Date Start Date Code Code System Note Provider Name and Address Organization Details Recorded Time 60499 Product containin g penicilli n (product) medicatio n Not available Not available Not available 03/18/2025 21322 8001 SNOMED LAVERNE HARRELL NP [address] [facility], [address], [place], [address], [facility] 5 13:49:11 Medications Not known to be on any medication Vitals Date Recorded Body height Heart rate Oxygen saturation Systolic And Diastolic Provider Name and Address Organization Details Last Updated DateTime 04/14/2025 45.72 cm 79 /min 100 % 121/68 mm[Hg] Mallorie Watson NP [address] [facility], [address], [place], [address] , [facility] 04/14/2025 09:03:16 Date Recorded Body height Systolic And Diastolic Provider Name and Address Organization Details Last Updated DateTime 04/19/2025 45.72 cm 112/70 mm[Hg] Tono Nicole MD [address] [facility] [address], [place], [address], [facility] 04/19/2025 15:39:34 Date Recorded Body height Body mass index (BMI) Body weight Heart rate Respiratory rate Body temperature Oxygen saturation Systolic And Diastolic Provider Name and Address Organization Details Last Updated DateTime 5 167.64 cm 31 kg/m2 95664.7 4 g 80 /min 16 /min 97.5 [degF] 99 % 108/62 mm[Hg] Mallorie Watson NP [address] [facility] [address], [place], [address], [facility] 5 08:43:56 Date Recorded Body height Body mass index (BMI) Body weight Heart rate Respiratory rate Body temperature Oxygen saturation Systolic And Diastolic Provider Name and Address Organization Details Last Updated DateTime 167.64 cm 29.4 kg/m2 46651.8 1 g 80 /min 18 /min 98 [degF] 95 % 130/77 mm[Hg] Mallorie Watson NP [address] [facility], [facility] [address], [place], [address], [facility] 5 19:56:45 Social History Question Answer Notes LastModified by Organizat ion Details LastModified Time Tobacco Smoking Status Never Smoker LAVERNE HARRELL NP [address] [facility] [address], [place], [address], [facility] 03/18/2025 13:51:26 What Is Your Code Status? Full Code [email or web address] Information not available 03/18/2025 Do You Have A Medical Power Of [employer]? Yes Has HCP [email or web address] Information not available 03/18/2025 What Was The Date Of Your Most Recent Tobacco Screening? 04/02/2025 [email or web address] Information not available 04/02/2025 Has Tobacco Cessation Counseling Been Provided? No [email or web address] Information not available 03/18/2025 Sex: Unknown Functional Status Question Answer Note LastModified by Organizat ion Details LastModified Time Do you use any illicit or recreational drugs? No [email or web address] Information not available 03/18/2025 Do you or have you ever used any other forms of tobacco or nicotine? No [email or web address] Information not available 03/18/2025 What is your level of alcohol consumption? None distant hx. [email or web address] Information not available 03/18/2025 Mental Status None recorded. Family History Relationship Description Onset Age of this Age Resolved Age Notes LastModified by Organization Details LastModified Time Father Malignant neoplasm of liver [email or web address] Not available 2024 13:50:48 Medical History No medical history recorded. Gynecological HistoryNo gynecological history recorded. Obstetrics History GPAL:G 0 P 0 0 0 0 Past Encounters Encounter ID Performer Location Encounter Start Date Encounter Closed Date Diagnosis/Indication Diagnosis SNOMED-CT Code Diagnosis ICD10 Code Diagnosis IMO Codes Diagnosis Note [id number] LAVERNE HARRELL NP [address] [address] 03/18/2025 13:48:33 03/30/2025 09:41:21 Asthenia 54080645 R53.1 68206 Deconditio justyna due to acute illness and hospitaliz ation.PT OT eval and tx.Goal is to return home. Acute kidney injury 1466 9001 N17.9 613667 Followed by Renal inpt., responded well to fluids and holding diuretics. 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 with improvemen t in levels.Cur rently 129.Contin ue 1.5 L/d FRCMP q wed. x 3Consult renal prn Chronic hyperkalemia 407 48533 E87.5 9813 Meds adjusted in hosp. with improvemen t in levels.Cur rently 4.7CMP q wed.Consul t Renal prn Cirrhosis of liver 007 K74.60 R18.8 [id number] Currently on:Lasix 60 mg qdLactulos e 30 ml/20gm tid - goal 3 soft stools dailyRifax imin 550 mg bidNow on levaquin 250 mg qd for SBP proph., Bactrim stopped due to renal issues.Off aldactone - stopped in hosp.VS and weights dailyCMP, NH3 q wed.Refer to GI prn Hepatic encephalopathy 96418171 K76.82 4853629 Improved in hosp.Maria Teresa nue:Lactul ose 30 ml/20 gm tid - goal 3 soft stools dailyRifax imin 550 mg bidCMP, NH3 q wed. Renal diso rder due to type 2 diabetes mellitus 583880258 E11.29 Z79.4 14005077 Continue:T resiba 58 U qdLispro SSICarb Control diet Schizoaffe ctive disorder 10280437 F25.9 09465166 Continue:B enztropine 0.5 mg q hsHaldol 10 mg bidMelaton in 3 mg q hs prnCurrent ly off lamictal due to renal issuesRefe r to Psych prnMonitor mood, behaviors. Pancytopenia 014341110 D 61.818 54776 2.06/28/26Co ntinue Ferrous Gluc. 240 mg qdBaseline platelets very low - 27CBC q wed.Monito r bleedingTr ansfuse prn [id number] Tono Nicole MD [address] [address] 03/20/2025 13:21:53 03/24/2025 10:07:22 Asthenia 35540105 R53.1 45553 PT OT Eval and treatmonit or fall risk and need for increased support in community Acute kidney injury 1466 9001 N17.9 914871 improved with IVF and holding diuretics since restartedm onitor renal function Chronic hyponatremia 503 64649 E87.1 9775 appears multifacto rial with recurring ascitesmon itor lytesno longer on spironolac tone Chronic hyperkalemia 407 93542 E87.5 9813 see above Cirrhosis of liver 33657 007 K74.60 R18.8 [id number] see HPI and aboverequi red paracentes is with > 3 liters removedcon tinued on lasixno longer on spironolac tonemonito r for increasing ascites Hepatic encephalopathy 23588896 K76.82 0641015 known underlying NASHmainta ined onlactulos e and rifaximinm onitor level of insightcoo rdinate with GIunsure of baseline however is confused with poor insightinv delmer HCPcontinu e supportive care Renal diso rder due to type 2 diabetes mellitus 963233868 E11.29 Z79.4 83960096 hyperglyce charly in hospital now ontresiba and SS insulinmon itor need to adjust Pancytopenia 357309058 D 61.818 08580 see above with baseline NASHmonito r plt levelcoord inate with heme as needed Chronic schizoaffective schizophrenia 874314045 F25.9 769496 maintained onHaldol 10 mg bidcogenti n 0.5 mg qhsmonitor presentati onupdate psych with concerns Impaired cognition 54390 6002 R41.89 692191 see aboveinvok e HCP [id number] Mallorie Watson NP [address] [address] 03/26/2025 09:09:47 03/30/2025 10:58:43 Asthenia 03042213 R53.1 76483 generalize d deconditio gumaro due to acute illness and hospitaliz ation.cont PT OT eval and tx.support maria antonia Loaiza is to return home. Acute kidney injury 1466 9001 N17.9 675782 improving as aboveFollo wed by Renal inpt., responded well to fluids and holding diuretics. 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 with improvemen t in levels. much improved as aboveConti nue 1.5 L/d FRCMP q wed. x 3Consult renal prn Chronic hyperkalemia 407 03219 E87.5 9813 Meds adjusted in hosp. with improvemen t in levels, see aboveCMP q wed.Consul t Renal prn Cirrhosis of liver 007 K74.60 R18.8 [id number] Currently on:Lasix 60 mg qdLactulos e 30 ml/20gm tid - goal 3 soft stools dailyRifax imin 550 mg bidlevaqui n 250 mg qd for SBP proph., (Bactrim stopped due to renal issues.)Of f aldactone - stopped in hosp.VS and weights daily, stableCMP, NH3 q wed.Refer to GI prnof note: ammonia levels note able to be obtained here Hepatic encephalopathy 92009205 K76.82 2674600 Improved in hosp.Maria Teresa nue:Lactul ose 30 ml/20 gm tid - goal 3 soft stools dailyRifax imin 550 mg bidCMP, NH3 q wed. Renal diso rder due to type 2 diabetes mellitus 899107422 E11.29 Z79.4 82031794 BS controlled 100-2002Co ntinue:Eulalio siba 58 U qdLispro SSICarb Control diet Schizoaffe ctive disorder 86708427 F25.9 37513152 Continue:B enztropine 0.5 mg q hsHaldol 10 mg bidMelaton in 3 mg q hs prnCurrent ly off lamictal due to renal issuesRefe r to Psych prnMonitor mood, behaviors. Pancytopenia 370063883 D 61.818 74298 2.06/28/26Co ntinueFerr ous Gluc. 240 mg qdBaseline platelets very low - 19CBC q wed.Monito r bleedingTr ansfuse prnnot on ac, likely due to liver cirrhosis Impaired cognition 64237 6002 R41.89 899616 see aboveinvok e HCPpleasan tly confused Chronic schizoaffective schizophrenia 607246772 F25.9 292975 maintained onHaldol 10 mg bidcogenti n 0.5 mg qhsupdate psych with concerns [id number] Mallorie Watson NP [address] [address] 03/29/2025 08:40:33 04/06/2025 09:51:47 Cirrhosis of liver 70010365 K74.60 R18.8 701005865 send to ER for abd pain/diste ntion/ possible paracentes isshe is not able to hold down fluids/irma d over weekend Pancytopenia 195344844 D 61.818 78550 2.06/28/26 on admit, see above, trending lowplatele tssend to ER for evaluation of abd pain/diste ntion Renal diso rder due to type 2 diabetes mellitus 812509390 E11.29 Z79.4 79811297 BS controlled low this am at 75,not eating well and vomiting, likely due to abd distention initially decreased Tresiba from 58 U qd to 50 unitsLispr o SSICarb Control diet, send to ER for eval now that she is vomiting Abdominal pain 94775541 R10.9 R11.10 R19.7 25248091 having abd pain, vomiting, nausea and abd distention with plat count of 19 last week, hx of cirrhosis and paracentes is last weeksend to er for eval [id number] Mallorie Watson NP [address] [address] 04/02/2025 08:07:07 04/06/2025 13:29:29 Abdominal pain 33299547 R10.9 R11.10 R19.7 [id number] resolved in hospworkup in hosp ruled out additional causes, likely due to ascites and liver cirrhosish ad paracentes is on 03/30 with 700 cc taken outadd zofran 4 mg po q 6 hours prn vomitingmo nitor weights, ability to eat/drink, and if another paracentes is may be neededmeas ure abd girth 3x/week and place in [facility] at umbilicus, notify Cirrhosis of liver 007 K74.60 R18.8 [id number] see hpiworkup in hosp ruled out additional causes, likely due to ascites and liver cirrhosish ad paracentes is on 03/30 with 700 cc taken outa workup for additional SBP(sponta neous bacterial peritoniti s) done and ruled out in hospital addzofran 4 mg po q 6 hours prn vomitinglo w sodium 2 gram dietdaily weightsFR 63073/ dayabd girth M W F, notify provider if greater than 3 cm. Cedrick umbilicous for consistent measuremen tmonitor for need to repeat tapcbc and bmp weekly indefinite ly Renal diso rder due to type 2 diabetes mellitus 001166998 E11.29 Z79.4 13816948 BS controlled in hospital 100s-200s per reportTres iba 58 U sc qd, monitor for need to decrease is eating lessLispro SSICarb Control low sodium dietmonito r need Pancytopenia 491605250 D 61.818 55897 continues with pancytopen ia as above likely related to cirrhosis and splenomega ly (severe splenomega ly up to 16.[address])monitor cbc weekly and for s/s of bleeding Hepatic encephalopathy 80733759 K76.82 4050529 Improved in hosp.Maria Teresa nue:Lactul ose 30 ml/20 gm tid - goal 3 soft stools dailyRifax imin 550 mg bidCMP, NH3 q wed. Asthenia 28828317 R53.1 92855 generalize d deconditio gumaro due to acute illness and hospitaliz ation.pt ot eval and treatconts upportive careGoal is to return home. Acute kidney injury 1466 9001 N17.9 580031 improving as aboveFollo wed by Renal inpt., responded well to fluids and holding diuretics. 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 with improvemen t in levels. much improved as abovehosp rec low sodium diet for ascites, however with hyponatrem ia will cont regular carb consistent dietContin ue 1.5 L/d FRCMP q wed. x 3Consult renal prn Schizoaffe ctive disorder 47424524 F25.9 47781234 Cont:Benzt ropine 0.5 mg q hsHaldol 10 mg bidMelaton in 3 mg q hs prnCurrent ly off lamictal due to renal issuesRefe r to Psych prnMonitor mood, behaviors. Impaired cognition 29149 6002 R41.89 660264 see aboveinvok e HCPpleasan tly confused Chronic schizoaffective schizophrenia 672629020 F25.9 900155 maintained onHaldol 10 mg bidbenztro pine 0.5 mg qhsupdate psych with concerns [id number] Mallorie Watson NP [address] [address] 04/07/2025 12:08:38 04/14/2025 20:54:37 Cirrhosis of liver 44751425 K74.60 R18.8 226723930 see hpiworkup in hosp ruled out additional causes, likely due to ascites and liver cirrhosish ad paracentes is on 03/30 with 700 cc taken outa workup for additional SBP(sponta neous bacterial peritoniti s) done and ruled out in hospitalzo pricilla 4 mg po q 6 hours prn vomitinglo w sodium 2 gram dietdaily weightsFR 64951/ dayabd girth M W F, notify provider if greater than 3 cm. Cedrick umbilicous for consistent measuremen t. 04/17 =48inchesm onitor for need to repeat tapcbc and bmp weekly indefinite ly Renal diso rder due to type 2 diabetes mellitus 390847527 E11.29 Z79.4 72979448 BS controlled in hospital 100s-200s per reportTres iba 58 U sc qd, monitor for need to decrease is eating lessLispro SSICarb Control low sodium dietmonito r need Pancytopenia 588523149 D 61.818 54659 continues with pancytopen ia as above likely related to cirrhosis and splenomega ly (severe splenomega ly up to 16.[address])monitor cbc weekly and for s/s of bleeding Hepatic encephalopathy 41805614 K76.82 9515727 Improved in hosp.Maria Teresa nue:Lactul ose 30 ml/20 gm tid - goal 3 soft stools dailyRifax imin 550 mg bidCMP, NH3 q wed. Asthenia 56764855 R53.1 56588 generalize d deconditio gumaro due to acute illness and hospitaliz ation.pt ot eval and treatconts upportive careGoal is to return home. Acute kidney injury 1466 9001 N17.9 511499 improving as aboveFollo wed by Renal inpt., responded well to fluids and holding diuretics. 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 with improvemen t in levels. much improved as abovehosp rec low sodium diet for ascites, however with hyponatrem ia will cont regular carb consistent dietContin ue 1.5 L/d FRCMP q wed. x 3Consult renal prn Schizoaffe ctive disorder 98826167 F25.9 92269649 Cont:Benzt ropine 0.5 mg q hsHaldol 10 mg bidMelaton in 3 mg q hs prnCurrent ly off lamictal due to renal issuesRefe r to Psych prnMonitor mood, behaviors. Impaired cognition 94415 6002 R41.89 182179 see aboveinvok e HCPpleasan tly confused Chronic schizoaffective schizophrenia 296615639 F25.9 414429 maintained onHaldol 10 mg bidbenztro pine 0.5 mg qhsupdate psych with concerns [id number] Mallorie Watson NP [facility] [address] [place] [address] 04/14/2025 08:31:58 04/15/2025 10:48:26 Cirrhosis of liver 11758956 K74.60 R18.8 704331795 see hpiworkup in hosp ruled out additional [...] rder due to type 2 diabetes mellitus 744635117 E11.29 Z79.4 95177665 BS controlled in hospital 100s-200s per reportTres iba 58 U sc qd, monitor for need to decrease is eating less(tresi ba not avail today and may use lantus until tonight when avail)Lisp ro SSICarb Control low sodium dietmonito r need Pancytopenia 043485503 D 61.818 18136 continues with pancytopen ia as above likely related to cirrhosis and splenomega ly (severe splenomega ly up to 16.[address])monitor cbc weekly and for s/s of bleeding Hepatic encephalopathy 75942147 K76.82 1871643 Improved in hosp.Maria Teresa nue:Lactul ose 30 ml/20 gm tid - goal 3 soft stools dailyRifax imin 550 mg bidCMP, NH3 q sat. Asthenia 79474997 R53.1 19141 generalize d deconditio gumaro due to acute illness and hospitaliz ation.pt ot eval and treatconts upportive careGoal is to return home. Acute kidney injury 1466 9001 N17.9 420391 contFollow ed by Renal inpt., responded well to fluids and holding diuretics. montior for need to to restart dureticsMo nitor CMP q wed.Avoid nephrotoxi cs Chronic hyponatremia 503 10892 E87.1 9775 Meds adjusted in hosp. with improvemen t in levels. much improved as abovehosp rec low sodium diet for ascites, however with hyponatrem ia will cont regular carb consistent dietContin ue 1.5 L/d FRCMP q wed. x 3Consult renal prn Schizoaffe ctive disorder 63164805 F25.9 37415232 Cont:Benzt ropine 0.5 mg q hsHaldol 10 mg bidMelaton in 3 mg q hs prnCurrent ly off lamictal due to renal issuesRefe r to Psych prnMonitor mood, behaviors. Impaired cognition 71353 6002 R41.89 142965 see aboveinvok e HCPpleasan tly confused Chronic schizoaffective schizophrenia 762217694 F25.9 388719 maintained onHaldol 10 mg bidbenztro pine 0.5 mg qhsupdate psych with concerns Chest pain 04113414 R07. 9 27016710 pt with cp [facility] ER visit with unremarkab le workup for cardiacmon itor vitals and cardiac status [id number] Tono Nicole MD [address] [address] 04/19/2025 15:39:01 04/20/2025 11:19:47 Hepatic encephalopathy 84635032 K76.82 8363906 known underlying NASHmainta ined onlactulos e 30 cc tidrifaxim in 550 mg bidcontinu e supportive care Impaired cognition 08443 6002 R41.89 825067 apparent baseline impaired cognition with underlying NASHHCP invokedcon tinue supportive careimpuls maria antonia behaviors is fall risk due to impairment and gait instabilit y Cirrhosis of liver 06881 007 K74.60 R18.8 728992182 see HPIlasix 60 mg qdnon compliant with fluid restrictio n of 1500 cc / daynow with increasing ascitessch edule for paracentes isto ED if increasing SOB [id number] Mallorie Watson NP [address] [address] 04/26/2025 12:25:19 04/27/2025 12:12:43 Abdominal pain 82639093 R10.9 R11.10 R19.7 81457458 Plan: fu with GI and monitor ascites. [...] pcc at umbilicus, notify Cirrhosis of liver 007 K74.60 R18.8 301928604 see hpiworkup in hosp ruled out additional [...] rder due to type 2 diabetes mellitus 454961869 E11.29 Z79.4 48030027 BS controlled 100s-200sT resiba 58 U sc qd, monitor for need to decrease is eating lessLispro SSICarb Control low sodium dietmonito r need Pancytopenia 212642151 D 61.818 56022 continues with pancytopen ia as above likely related to cirrhosis and splenomega ly (severe splenomega ly up to 16.[address])monitor cbc weekly 'monitor s/s of bleeding Hepatic encephalopathy 94588925 K76.82 8099888 resolvingC ont:Lactul ose 30 ml/20 gm tid - goal 3 soft stools dailyRifax imin 550 mg bidCMP, NH3 q wed. 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 Acute kidney injury 1466 9001 N17.9 349879 improving as aboveFollo wed by Renal inpt., responded well to fluids and holding diuretics. 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 with improvemen t in levels. much improved as abovehosp rec low sodium diet for ascites, however with hyponatrem ia will cont regular carb consistent dietCont1. 5 L/d FRCMP q wed. x 3Consult renal prn Schizoaffe ctive disorder 42066134 F25.9 67341653 Cont:Benzt ropine 0.5 mg q hsHaldol 10 mg bidMelaton in 3 mg q hs prnCurrent ly off lamictal due to renal issuesRefe r to Psych prnMonitor mood, behaviors. Impaired cognition 95048 6002 R41.89 845853 see aboveinvok e HCPpleasan tly confused Chronic schizoaffective schizophrenia 820859529 F25.9 791711 maintained onHaldol 10 mg bid, consider decreasing if lethargicb enztropine 0.5 mg qhsupdate psych with concerns [id number] Mallorie Watson NP [address] [address] 05/07/2025 08:23:15 05/13/2025 13:33:58 Abdominal pain 99131203 R10.9 R11.10 R19.7 05304055 fu with GI and monitor ascites.GI rec [...] *next paracentes is on 05/14 scheduled at [facility] need them scheduled frequently Cirrhosis of liver 007 K74.60 R18.8 [id number] workup in hosp ruled out additional causes, [...] rder due to type 2 diabetes mellitus 295962178 E11.29 Z79.4 72995886 BS controlled 100s-200s, occ 300s (of note has hx of low BS at times)cont Tresiba 58 U sc qd, monitor for need to decrease is eating lessLispro SSICarb Control low sodium dietmonito r need Pancytopenia 107372794 D 61.818 58511 continues with pancytopen ia as above likely related to cirrhosis and splenomega ly (severe splenomega ly up to 16.[address])monitor cbc weekly, of note h/h trending downmonito r for need to transfuse <7monitor s/s of bleeding Hepatic encephalopathy 08586013 K76.82 8467118 overall confusion remains butCont:La ctulose 30 ml/20 gm tid - goal 3 soft stools dailycontR ifaximin 550 mg bidCMP, NH3 q wed. Asthenia 88476005 R53.1 00926 generalize d deconditio gumaro due to acute illness and hospitaliz ation.pt ot eval and treat, she continues to work with [employer] ortive careGoal is to return home. Acute kidney injury 1466 9001 N17.9 696194 improving as aboveFollo wed by Renal inpt., responded well to fluids and holding diuretics. 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 with improvemen t in levels. much improved as abovehosp rec low sodium diet for ascites, however with hyponatrem ia will cont regular carb consistent dietCont1. 5 L/d FRCMP q wed. x 3Consult renal prn Schizoaffe ctive disorder 31746557 F25.9 08943162 Cont:Benzt ropine 0.5 mg q hsHaldol 10 mg bidMelaton in 3 mg q hs prnCurrent ly off lamictal due to renal issuesRefe r to Psych prnMonitor mood, behaviors. Impaired cognition 27378 6002 R41.89 [id number] see aboveinvok e HCPpleasan tly confused Chronic schizoaffective schizophrenia [id number] F25.9 [id number] maintained onHaldol 10 mg bid, consider decreasing if lethargicb enztropine 0.5 mg qhsupdate psych with concerns [id number] Mallorie Watson NP [facility] [address] [place] [address] 05/17/2025 13:26:31 05/18/2025 11:06:16 Cirrhosis of liver [id number] K74.60 R18.8 [id number] workup in hosp ruled out additional causes, [...] rder due to type 2 diabetes mellitus [id number] E11.29 Z79.4 [id number] BS controlled 100s-200s, occ 300s (of note has hx of low BS at times)cont Tresiba 58 U sc qd, monitor for need to decrease is eating lessLispro SSICarb Control low sodium dietmonito r need Pancytopenia [id number] D 61.818 46757 platets remains stable low, no s/s of bleedingco ntinues with pancytopen ia as above likely related to cirrhosis and splenomega ly (severe splenomega ly up to 16.[address])monitor cbc weekly, of note h/h trending downmonito r for need to transfuse <7monitor s/s of bleeding Hepatic encephalopathy [id number] K76.82 [id number] overall confusion remains butCont:sp ironolacto ne 50mg po qdLactulos e 30 ml/20 gm tid - goal 3 soft stools dailyRifax imin 550 mg bidCMP, NH3 q wed. Asthenia 79943983 R53.1 76147 generalize d deconditio gumaro due to acute illness and hospitaliz ation.pt ot eval and treat, she continues to work with otcontsupp ortive careGoal is to return home. Acute kidney injury 1466 9001 N17.9 [id number] currently on lasixcontM onitor CMP q wed.Avoid nephrotoxi cs Chronic hyponatremia 503 61085 E87.1 9775 Meds adjusted in hosp. with improvemen t in levels. much improved as abovehosp rec low sodium diet for ascites, however with hyponatrem ia will cont regular carb consistent dietCont1. 5 L/d FRCMP q wed. x 3Consult renal prn Schizoaffe ctive disorder [id number] F25.9 [id number] Cont:Benzt ropine 0.5 mg q hsHaldol 10 mg bidMelaton in 3 mg q hs prnCurrent ly off lamictal due to renal issuesRefe r to Psych prnMonitor mood, behaviors. Impaired cognition 08835 6002 R41.89 446625 see aboveinvok e HCPpleasan tly confused Chronic schizoaffective schizophrenia [id number] F25.9 239751 mood pleasantco ntHaldol 10 mg bid, consider [...] Crowley Member ID Guarantor Name 04/26/2025 1 [place] [facility] Catherine [facility] [id number] Catherine Stern 03/22/2025 1 [facility] Catherine Petersons [id number] Catherine Stern 03/22/2025 1 [place] [facility] Catherine [facility] [id number] Catherine Petersons Notes Date Note Type Note [...] showing nonischemic RBBB, trop x2 neg for [place]. [place] is was not suggestive of dissection or [...] female with hx above presented to [facility] due to vomiting and abdominal distention, weight [...] code, has HCP Mallorie Watson, KJ [address], [address], [place], [address], [facility] 04/14/2025 10:58:55 04/19/2025 text/html Patient is a [...] in past month Tono Nicole MD [address], [address], [place], [address], [facility] [employer] [facility] 04/19/2025 15:48:13 04/26/2025 text/html ROS as noted in the HPI Catherine is a 64 yo female, seen for a 30 day routine rounding visit. PMH: DM2, obese, schizoaffective d/o, decompensated liver cirrhosis with portal hypertension, ascites, splenomegaly, anemia with hemorrhoidal bleeds, thrombocytopenia, scoliosis She is a 64 yo lady, admitted to [facility] 03/17/25 from [facility] for continued care and rehab after a brief hosp. due to OLIVIA, encephalopathy. PMH: DM2, obese, schizoaffective d/o, liver cirrhosis, anemia, thrombocytopenia, scoliosis, hemorrhoids She presented to [facility] 03/02/25 due to elevated BS, lethargy, and [...] no drainable ascites. She returned to [facility] because of abdominal pain, and she had [...] creatinine were stable. She presented to [facility] ER on 04/14 due to vomiting and [...] has just returned from her appt [facility]. She is eating, drinking and moving her bowels per staff. She remains with very large abdomen and weight gain at 195 lbs, was 186 lbs last week, and 170 lbs in march. Overall, remains on notable decline. No s/s of bleeding or bruising noted. YAÑEZ: low fall riskFull code, has HCPHCP invoked Mallorie Watson NP [address], [address], [place], [address], [facility] 04/26/2025 23:06:18 05/07/2025 text/html ROS as noted in the HPI Pt is seen for acute rounding visit. PMH: DM2, obese, schizoaffective d/o, decompensated liver cirrhosis with portal hypertension, ascites, splenomegaly, anemia with hemorrhoidal bleeds, thrombocytopenia, scoliosis She is a 64 yo lady, admitted to [facility] 03/17/25 from [facility] for continued care and rehab after a [...] 05/14 at the earliest appt available at [facility]. SHe is aware of the date. Her [...] has HCPHCP invoked Mallorie Watson NP [address], [address], [place], [address], [facility] 05/07/2025 09:09:15 05/17/2025 text/html ROS as noted in the HPI Pt is seen for acute rounding visit. PMH: DM2, obese, schizoaffective d/o, decompensated liver cirrhosis with portal hypertension, ascites, splenomegaly, anemia with hemorrhoidal bleeds, thrombocytopenia, scoliosis She is a 64 yo lady, admitted to [facility] 03/17/25 from [facility] for continued care and rehab after a [...] has HCPHCP invoked Mallorie Watson NP [address], [address], [place], [address], [facility] 05/17/2025 20:32:35 OBGyn Episode No OBEpisode recorded.
--- OUTSIDE RECORDS SUMMARY | 2025-09-15 16:42 | XMS_ITS | Encounter Summary ---
Author Organization [employer] Address [address] [place] [address] Care Team Providers Care [employer] Packages Tester Name Role Phone Ana Davis WAD PRINTING MACHINE OPERATOR Primary Care Provider [phone] Andree Ulloa PharmD Unavailable [phone] Encounter Details Date Type Department Care Team (Latest Contact Info) Description 09/15/2025 Travel Social History Tobacco Use Types Packs/Day [...] Jin [place] documented as of this encounter Plan of Treatment Upcoming Encounters Date Type Department Care Team (Late st Contact Info) Description 09/20/2025 10:00 AM EST Office Visit [facility] [address] [place] [address] [facility], [facility] [address] [place] [address] documented as of this encounter Goals Goal [...] has chronic kidney disease No Kirstie Barajas PharmFelicita Weekly blood pressure task Care Plan Weekly blood pressure task No Kirstie Barajas PharmFelicita Patient has chronic kidney disease Care Plan [...] has chronic kidney disease No Martin Ines Patient has chronic kidney disease Care Plan Patient has chronic kidney disease No Salazar, Ines Weekly blood pressure task Care Plan Weekly blood pressure task No Harrison Salazar, PharmD Weekly blood pressure [...] Plan Weekly blood pressure task No Colon Sid Yojana Patient has chronic kidney disease Care Plan Patient has chronic kidney disease No Colon Sid Yojana Patient has chronic kidney disease Care Plan Patient has chronic kidney disease No Colon Sid Yojana Weekly blood pressure task Care Plan [...] Care Plan Patient has chronic kidney disease Manuela Colmenares [place] Patient has chronic kidney disease Care Plan Patient has chronic kidney disease Manuela Colmenares [place] documented as of this encounter Visit [...] documented as of this encounter Care Teams [employer] Tester Relationship Specialty Start Date End Date Ana Davis FNP [address] [place] [address] PCP - General Family Medicine 04/05/22 Andree Ulloa PharmD [address] [place] [address] Pharmacist Internal Medicine 05/09/23 Flavia Segundo C[employer] Running Machine TenderQuality Checker 10/10/23 Gabrielle Fitch Casing Running Machine TenderQuality Checker 11/05/24 [employer] 02/06/25 documented as of this encounter
--- OUTSIDE RECORDS SUMMARY | 2025-09-15 16:42 | XMS_ITS | Clinical Summary ---
Author Organization [employer] Address [address] [place] [address] Care Team Providers Care Electric Meter Tester Helper Name Role Phone Ana Davis MECHANIC CHIEF Primary Care Provider Andree Ulloa PharmD Unavailable [phone] Allergies Active Allergy Reactions Criticality Noted Date Comments Penicillin G 01/30/2023 Penicillins Unknown 12/05/2010 Medications * This document contains information received from the source organization and may not represent a complete record from that organization. Insulin Pen Needle (pen needle 01/03 ) 31G x 5 mm misc Inject under the skin if needed. Use as directed twice daily Active Blood Pressure Monitor kitIndications :Hypertension, unspecified type Use to check blood pressure daily 1 kit 023 Active Blood Glucose Monitoring Suppl (D-Care Glucometer) w/Device kitIndications :Type 2 diabetes mellitus with hyperglycemia, with long-term current use of insulin (HCC),Cirrhosi s of liver with ascites, unspecified hepatic cirrhosis type (HCC) Use as directed to check BS four times daily 1 kit 024 Active pen needle 32G x 4 mm miscIndication s:Type 2 diabetes mellitus without complication, with long-term current use of insulin (HCC) Use as instructed 100 each 12 025 2025 Active Lancets miscIndication s:Type 2 diabetes mellitus without complication, with long-term current use of insulin (HCC) Check blood sugar three times daily 150 each 3 02/12/ 025 Active Alcohol Swabs (Alcohol Prep) padsIndication s:Type 2 diabetes mellitus without complication, with long-term current use of insulin (HCC) Use as directed 150 each 1 02/12/2 025 Active glucose blood test stripIndicatio ns:Type 2 diabetes mellitus without complication, with long-term current use of insulin (HCC) Use as directed to check blood sugar three times daily 100 each 12 Active Blood Glucose Monitoring Suppl deviceIndicati ons:Type 2 diabetes mellitus without complication, with long-term current use of insulin (HCC) Use as directed to check blood sugar three times daily 1 each Active ferrous gluconate (Fergon) 324 (38 Fe) MG tabletIndicati ons:Anemia, unspecified type Take 1 tablet (324 mg) by mouth with breakfast. 30 tablet 2025 Active lurasidone (Latuda) 80 MG tabletIndicati ons:Schizophre louise, unspecified type (HCC) Take 1 tablet (80 mg) by mouth in the evening. 30 tablet 1 Active naproxen (Naprosyn) 500 MG tablet Take 1 tablet (500 mg) by mouth 2 times daily. 60 tablet 2024 Active acetaminophen (Tylenol) 500 MG tablet Take 1 tablet (500 mg) by mouth every 6 (six) hours if needed for moderate pain. 30 tablet 1 Active benztropine (Cogentin) 0.5 MG tabletIndicati ons:Schizophre louise, unspecified type (HCC) Take 1 tablet (0.5 mg) by mouth at bedtime. 30 tablet 1 Active furosemide (Lasix) 40 MG tabletIndicati ons:Cirrhosis of liver with ascites, unspecified hepatic cirrhosis type (HCC) Take 1 tablet (40 mg) by mouth Once per day. 30 tablet 11 Active glucagon (Baqsimi Two Pack) 3 MG/DOSE nasal powderIndicati ons:Type 2 diabetes mellitus without complication, with long-term current use of insulin (HCC) Administer 3 mg via 1 device into the nostril for hypoglycemia with loss of consciousness. If no response after 15 minutes administer an additional dose via 2nd device into other nostril. 2 each Active haloperidol (Haldol) 10 MG tabletIndicati ons:Schizophre louise, unspecified type (HCC) Take 0.5 tablets (5 mg) by mouth Once per day AND 1 tablet (10 mg) at bedtime. 45 tablet 025 2024 Active insulin degludec (Tresiba FlexTouch) 200 UNIT/ML injectionIndic ations:Type 2 diabetes mellitus without complication, with long-term current use of insulin ([facility]) INJECT 58 UNITS SUBCUTANEOUSLY EVERY EVENING 9 mL 1 Active insulin lispro (HumaLOG KWIKPEN) 100 UNIT/ML injectionIndic ations:Type 2 diabetes mellitus without complication, with long-term current use of insulin ([facility]) Follow sliding scale as instructed: Before meals. Range 0 - 12 unit per sliding scale. 15 mL 1 Active lactulose (Chronulac) 10 GM/15ML solutionIndica tions:Cirrhosi s of liver with ascites, unspecified hepatic cirrhosis type ([facility]) Take 30 mL (20 g) by mouth 3 times daily. 946 mL 3 Active spironolactone (Aldactone) 50 MG tablet Take 1 tablet (50 mg) by mouth Once per day. 30 tablet 1 Active acetaminophen (Tylenol) 500 MG tablet Take 1 tablet by mouth every 6 (six) hours if needed. 016 2024 Discontinued(R eorder (will not trigger notification to Pharmacy)) glucagon (Baqsimi Two Pack) 3 MG/DOSE nasal powderIndicati ons:Type 2 diabetes mellitus without complication, with long-term current use of insulin ([facility]) Administer 3 mg via 1 device into the nostril for hypoglycemia with loss of consciousness. If no response after 15 minutes administer an additional dose via 2nd device into other nostril. 2 each 1 023 2024 Discontinued(R eorder (will not trigger notification to Pharmacy)) Alcohol Swabs (Alcohol Prep) padsIndication s:Type 2 diabetes mellitus without complication, with long-term current use of insulin ([facility]) Use one pad each to prep skin prior to injection as directed 100 each 11 024 2024 Discontinued(M ed list cleanup (will not trigger notification to Pharmacy)) Lancets 33G miscIndication s:Type 2 diabetes mellitus without complication, with long-term current use of insulin ([facility]) Use as directed to check blood sugar four times daily 100 each 3 024 2024 Discontinued(D uplicate order (will not trigger notification to Pharmacy)) traMADol (Ultram) 50 MG tabletIndicati ons:Closed fracture of multiple ribs, unspecified laterality, initial encounter Take 1 tablet (50 mg) by mouth every 8 (eight) hours if needed for severe pain. 30 tablet 024 2024 Discontinued(M ed list cleanup (will not trigger notification to Pharmacy)) carvedilol (Coreg) 3.125 MG tabletIndicati ons:Cirrhosis of liver with ascites, unspecified hepatic cirrhosis type (HCC) Take 1 tablet (3.125 mg) by mouth 2 times daily. 60 tablet 2024 Discontinued(T herapy completed) furosemide (Lasix) 40 MG tabletIndicati ons:Cirrhosis of liver with ascites, unspecified hepatic cirrhosis type (HCC) Take 1 tablet (40 mg) by mouth Once per day. 30 tablet 2024 Discontinued(R eorder (will not trigger notification to Pharmacy)) lactulose (Chronulac) 10 GM/15ML solutionIndica tions:Cirrhosi s of liver with ascites, unspecified hepatic cirrhosis type (HCC) Take 30 mL (20 g) by mouth 3 times daily. 946 mL 3 2024 Discontinued(R eorder (will not trigger notification to Pharmacy)) spironolactone (Aldactone) 50 MG tablet Take 50 mg by mouth Once per day. 2024 Discontinued(R eorder (will not trigger notification to Pharmacy)) insulin lispro (HumaLOG KWIKPEN) 100 UNIT/ML injectionIndic ations:Type 2 diabetes mellitus without complication, with long-term current use of insulin ([facility]) Inject 5 Units under the skin with breakfast and with evening meal. 15 mL 1 025 2024 Discontinued(R eorder (will not trigger notification to Pharmacy)) insulin degludec (Tresiba FlexTouch) 200 UNIT/ML injectionIndic ations:Type 2 diabetes mellitus without complication, with long-term current use of insulin ([facility]) INJECT 58 UNITS SUBCUTANEOUSLY EVERY EVENING 9 mL 1 025 2024 Discontinued(R eorder (will not trigger notification to Pharmacy)) sulfamethoxazo le-trimethopri m (Bactrim DS) 800-160 MG tabletIndicati ons:Cirrhosis of liver with ascites, unspecified hepatic cirrhosis type (HCC) Take 1 tablet by mouth Once per day. 30 tablet 11 025 2024 Discontinued(D iscontinued by another clinician) haloperidol (Haldol) 10 MG tabletIndicati ons:Schizophre louise, unspecified type (HCC) Take 1 tablet (10 mg) by mouth 2 times daily. 60 tablet 1 025 2024 Discontinued(R eorder (will not trigger notification to Pharmacy)) benztropine (Cogentin) 0.5 MG tabletIndicati ons:Schizophre louise, unspecified type (HCC) Take 1 tablet (0.5 mg) by mouth at bedtime. 30 tablet 1 025 2024 Discontinued(R eorder (will not trigger notification to Pharmacy)) lamoTRIgine (LaMICtal) 25 MG tabletIndicati ons:Schizophre louise, unspecified type (HCC) Take 2 tablets (50 mg) by mouth at bedtime. 60 tablet 1 025 2024 Discontinued(D iscontinued by another clinician) doxycycline (Doryx) 100 MG EC tablet Take 100 mg by mouth 2 times daily. Do not crush or chew. Take with a full glass of water and do not lie down for at least 30 minutes after. 2024 Discontinued(T herapy completed) cefuroxime (Ceftin) 500 MG tablet Take 500 mg by mouth 2 times daily. 2024 Discontinued(T herapy completed) Active Problems Problem Noted Date Diagnosed Date Chronic kidney disease 06/15/2024 Gait instability 03/10/2023 Overview (03/10/2023): Referred to PT 11/2022 for gait assistance evaluation Internal carotid artery stenosis, bilateral 02/19 Hyponatremia 03/10/2023 Healthcare maintenance 12/03/2022 Overview (03/10/2023): Mammo: Ordered 11/2022 Pap: Unknown. Referred to [facility] 11/2022 for PMB. Ultrasound pending C-scope: 2019, precancerous polyps Cirrhosis of liver (CMS/HCC) 04/21/2018 Overview (09/09/2023): Decompensated QURESHI cirrhosis MELD-Na: 16. Followed by [facility]. Paracentesis q. 2 weeks. EGD 2019 with grade II varices. Colonoscopy 2019 with polyps removed. Tubular adenoma present. Lactulose 2-3x/day for hepatic encephalopathy with goal 2-3 BM's per day. On propranolol 30mg b.I.d for varices. Lasix 100mg daily and sironolactione 150mg for ascites. Assessment & Plan (09/15/2025 12:30 PM EST): Orders: furosemide (Lasix) 40 MG tablet; Take 1 tablet (40 mg) by mouth Once per day. lactulose (Chronulac) 10 GM/15ML solution; Take 30 mL (20 g) by mouth 3 times daily. Assessment & Plan (09/09/2023 3:57 PM EST): Follow up as scheduled with GI next week Will request most recent GI note Assessment & Plan (03/19/2023 5:20 PM EDT): I left message with [facility] requesting provider-provider consult given severity of [...] plan. I will reach out directly to [facility] for update and recommend patient placemen [...] Needs new psychiatrist. On wait list at [facility] in [place]. Referred to [facility] psychopharm clinic 11/2022 Assessment & Plan (09/15/2025 12:30 PM EST): Orders: benztropine (Cogentin) 0.5 MG tablet; Take 1 tablet (0.5 mg) by mouth at bedtime. haloperidol (Haldol) 10 MG tablet; Take 0.5 tablets (5 mg) by mouth Once per day AND 1 tablet (10 mg) at bedtime. Assessment & Plan (05/06/2024 10:45 AM EDT): [...] from psych provider. Catherine was referred to [facility] on 03/31. Information given to [...] 12 months) . Pt was referred to [facility] on 03/31. clinician provided information and printed out letter with agency contact numbers. clinician will be available if requested during next consult. Assessment & Plan (02/12/2024 9:53 AM EDT): PLAN: (check all that apply) New/Additional Services needed Off-site services for Behavioral Health Integration Plan External OP therapy referral and OP psychiatry Referral Patient Self Plan Patient to reach out to [facility] team as needed, Comply with medication , and Patient to engage in OP therapy Tardive dyskinesia 04/21/2018 Thrombocytopenia 04/21/2018 Type 2 diabetes mellitus without complication Overview (03/17/2024): Tresiba 54 units [facility] lispro sliding scale- BS <150-12 units 150-199-14 units 200-249- 16 units 250-300- 18 units >300-20 units A1c: 11/2022 11% 01/2023 9.9% BMP: 11/2022 Microalbumin: Foot Exam: Foot exam with Risk 3-Significant loss of protective sensation. Eye Exam:Pending [facility] referral Lipid panel: 11/2022 ASCVD: 6.7% Statin: [...] Plan (09/09/2023 4:10 PM EST): POC BS [facility] s/p 10 units lispro in [...] sliding scale as prescribed STAT referral to [facility] DM educator Lab Results Component Value Date [...] and do not with to continue with [facility] endocrinology Resolved Problems Problem Noted Date Diagnosed Date Resolved Date Hypervolemia 10/17/2022 02/14/2023 Noncompliance with treatment regimen 04/01/2022 12/07/2022 Nonalcoholic steatohepatitis 04/21/2018 03/10/2023 Encounters Date Type Department Care Team Description 09/15/2025 10:00 AM EST Office Visit [address] [address] Tyler Jones, KAROLINA Acute cystitis without hematuria (Primary Dx); Type 2 diabetes mellitus without complication, with long-term current use of insulin (HCC); Vision disorder; Acute bilateral low back pain without sciatica; Hepatic encephalopathy (CMS/HCC) (HCC); Abnormal CT scan of lung; Schizophrenia, unspecified type (HCC); Cirrhosis of liver with ascites, unspecified hepatic cirrhosis type (HCC) 09/15/[address] [address] Ana Davis FNP chart prep 09/15/[address] [address] Ana Davis FNP 09/15/[address] [address] Tyler Jones FNP Hospital Follow-up 09/15/2025 Travel 09/14/[address] [address] Ana Davis FNP Chart Prep 09/07/[address] [address] Nettie Garcia MD No Show 09/07/2025 Patient Outreach [address] [address] Ana Davis FNP Pre-visit Planning ((Unable to reach for PVP screening, LVM) to be completed in office ) 09/06/[address] [address] Ana Davis FNP Chart Prep 08/27/2025 Orders Only [facility] External Provider, [facility] 08/27/2025 Patient Outreach [facility] [address] [place] [address] Ana Davis FNP Transition Of Care (Tcm) (HDF scheduled. ) 08/03/2025 Telephone [facility] OPTOMETRY [address] [place] [address] Elisabeth Melchor, SHANEKA 07/16/[address] [address] Ana Davis FNP No Show 07/16/2025 Orders Only GENERIC EXTERNAL DATA DEPARTMENT Provider, Generic External Data 07/15/[address] [address] Ana Davis FNP chart prep 07/14/[address] [address] Ana Davis FNP 07/08/2025 Orders Only GENERIC EXTERNAL DATA DEPARTMENT Provider, Generic External Data 07/08/2025 Patient Outreach [address] [address] Ana Davis FNP Pre-visit Planning ((Unable to reach for PVP screening, LVM) to be completed in office ) 06/28/2025 Orders Only GENERIC EXTERNAL DATA DEPARTMENT Provider, Generic External Data 06/16/2025 Patient Outreach [facility] MEDICINE [address] [place], [place] [id number] Ana Davis FNP Transition Of Care (Tcm) (HDF unscheduled ) 06/15/2025 Patient Outreach [facility] [address], [place] [phone] Ana Davis FNP from Last 3 Months Immunizations Immunization Administration Dates Next Due Hep B, adult 10/18/2022,11/02/2019,05/16/2015 Influenza injectable quadriv alent IIV4 with preservative 09/08/2018,08/06/2016,08/17/2015 Influenza injectable quadriv alent preservative free 09/02/2023,10/05/2022,11/02/2019 Influenza, IIV3, injectable 08/31/2024,1 11/02/2022,10/05/2022,11/02,09/08/2018,08/06/2016,08/17/2015 ,11/29/2009,09/09/2009 Influenza, Split (incl. teja fied surface antigen) 07/29/2013,08/11/2012 Influenza, seasonal, injecta ble, preservative free 08/31/2024 Pneumococcal Conjugate PCV 20 12/03/2022 Pneumococcal Polysaccharide PPSV23 07/29/2013, TD (adult), 2 Lf tetanus tox oid, preservative free, adsorbed 12/01/1997 Td (adult), unspecified 12/01/1997 Tdap 12/03/2022,11/27/2012 Zoster, Recombinant 10/18/2022 Social [...] Mass Index 34.57 09/15/2025 10:27 AM EST Plan of Treatment Upcoming Encounters Date Type Department Care Team (Late st Contact Info) Description 09/20/2025 10:00 AM EST Office Visit [facility] MEDICINE [address] [place] [address] Dexter, Ana, MECHANIC CHIEF [address] [place] [address] Health Maintenance Due Date Last Done Comments CT Colonography 1960 Colonoscopy 1961 Colorectal Cancer Screening 1961 FIT DNA/Cologuard 1961 FIT 1961 FOBT 1961 Sigmoidoscopy 1961 Eye Exam 1971 Hepatitis A Vaccines (1 of 2 - Risk 2-dose series) 1980 Pap Smear 1982 Cervical Cancer Screening 1991 HPV/Cotest 1991 RSV Patients and Patients Aged 60 years or older (1 - Risk 50-74 years 1-dose series) 2011 Mammogram 08/17/2021 08/17/2019 Zoster Vaccines (2 of 2) 12/13/2022 10/18/2022 Diabetes: Foot Exam 02/09/2025 02/10/2024, 02/10/2024, 02/10/2024, Additional history exists COVID-19 Vaccine ( season) 2025 Influenza Vaccine (#1) 2025 , 08/31/2024, 09/02/2023, Additional history exists Lipid Panel 08/31/2025 08/31/2024, 0212/2022, 05/21/2022 SDOH Screening 09/07/2025 09/07/2024 Diabetes: Hemoglobin A1C 12/16/2025 025, 02/12/2025, 08/31/2024, Additional history exists Alcohol/Substance Use Screening 09/15/2026 09/15/2025 Depression Screening 09/15/2026 09/15/2025, 09/15/20 25 Disability Screening 09/15/2026 09/15/2025 Tobacco Screening 09/15/2026 09/15/2025 DTaP/Tdap/Td Vaccines (3 - Td or Tdap) [...] Hemoglobin A1c < 8 Result Component 7.7( 5 10:33 AM EST) No Andree Ulloa PharmD Help patients manage their type 2 diabetes Care Plan Help patients manage their type 2 diabetes No Kirstie Barajas PharmFelicita Weekly blood pressure task Care Plan Weekly blood pressure task No Kirstie Barajas PharmFelicita Help patients manage their type 2 diabetes Care Plan Help patients manage their type 2 diabetes No Kirstie Barajas, PharmFelicita Patient has chronic kidney disease Care Plan Patient has chronic kidney disease No Kirstie Barajas PharmFelicita Weekly blood pressure task Care Plan Weekly blood pressure task No Kirstie Barajas PharmD Patient has chronic [...] Plan Weekly blood pressure task No Colon LauYojana Patient has chronic kidney disease Care Plan Patient has chronic kidney disease No Phong Lau Yojana Patient has chronic kidney disease Care Plan Patient has chronic kidney disease No Phong Lau Yojana Weekly blood pressure task Care [...] chronic kidney disease No Manuela Mukherjee MA Procedures Procedure Name Priority Date/Time Associated Diagnosis Comments POCT URINALYSIS DIPSTICK Routine 09/15/2025 11:00 AM EST Acute cystitis without hematuria POCT GLYCATED HEMOGLOBIN, TOTAL Routine 09/15/2025 10:33 AM EST Type 2 diabetes mellitus without complication, with long-term current use of insulin ([facility]) POCT GLUCOSE Routine 09/15/2025 10:32 AM EST Type 2 diabetes mellitus without complication, with long-term current use of insulin (HCC) CT ABDOMEN PELVIS WO CONTRAST Routine 08/27/2025 10:57 PM EST CTA CHEST PE PROTOCAL Routine 08/27/2025 7:54 PM EST CBC WITH AUTO DIFFERENTIAL Routine 08/27/2025 5:08 PM EST HIGH SENSITIVITY TROPONIN I Routine 08/27/2025 5:08 PM EST NT-PROBNP Routine 08/27/2025 5:08 PM EST LIPASE Routine 08/27/2025 5:08 PM EST BASIC METABOLIC PANEL Routine 08/27/2025 5:08 PM EST HEPATIC FUNCTION PANEL Routine 5:08 PM EST XR CHEST 1 VIEW Routine 08/27/2025 4:52 PM EST US ABDOMEN LIMITED Routine 07/16/2025 2: 00 [...] WHOLE BLOOD Routine 06/28/2025 9:25 AM EDT LIPID PANEL, STANDARD Routine 08/31/2024 11:55 AM [...] to Health Maintenance Results * (ABNORMAL) POCT Urinalysis (09/15/2025 11:00 [...] Media Lot # [id number] Lot# Expiration Date ,026 Urine (Urine, Random) 09/15/2025 11:00 AM EST [facility] POINT OF CARE TEST ENTER/EDIT ORDERABLES Final Result * (ABNORMAL) POCT Hgb A1c (09/15/2025 10:33 AM EST) Hemoglobin A1C 7.7(A) 4.0 - 5.7 % QC Media Lot # [id number] Lot# Expiration Date [id number] Blood 09/15/2025 10:3 3 AM EST [facility] POINT OF CARE TEST ENTER/EDIT ORDERABLES Final Result * (ABNORMAL) POCT Glucose (09/15/2025 10:32 AM EST) Glucose Blood, POC 337(A) 60 - 200 mg/dL Comment:RANDOM QC Media Lot # [id number] Lot# Expiration Date [id number] Blood Capillary blood specimen / Unknown 09/15/2025 10:32 AM EST [facility] POINT OF CARE TEST ENTER/EDIT ORDERABLES Final Result * CT Abdomen Pelvis w/o Contrast (08/27/2025 10:57 PM EST) Anatomical Region Laterality Modality Body, Pelvis, Abdomen Computed T omography 08/27/2025 10:5 7 PM EST Narrative 08/27/2025 11:00 PM EST [place] [address] CT Scan Report Signed Patient: Catherine Stern MR#: [id number] : 1960 Acct:[id number] Age/Sex: 65 / F ADM Date: 08/27/25 Loc: [facility]: Estelle Sandoval PA-C Ordering Physician: Estelle Sandoval PA-C Date of Service: 08/27/25 Procedure(s): CT abdomen pelvis wo IV con Accession Number(s): [id number] cc: Estelle Sandoval PA-C; [facility] Report Number: [id number]: Total DLP = 0.00 mGy-cm Reason for Exam: LLQ pain, severe distension CLINICAL HISTORY: LLQ pain, severe distension CT abdomen and pelvis without contrast Comparison: CT/SR - CT ABDOMEN PELVIS W IV CON - 06/09/25 19:37 EDT Findings: The lung bases are clear. Right lower lobe posterior dependent area of round consolidation, 4.5 x 2.9 x 7 cm. Left liver lobe subcentimeter granuloma. The liver demonstrates an irregular contour with hypertrophy of the caudate lobe. Prior cholecystectomy. Splenomegaly, 16 cm. The pancreas is homogeneous in attenuation. The left and right kidney demonstrate homogeneous enhancement. Peripancreatic edema. There is diffuse fecal material seen throughout the colon. Umbilical hernia, defect 1.9 cm with herniation 5 cm, heterogeneous in attenuation with mural thickening of the rim. Hiatal hernia. Diverticulosis. The uterus within normal limits. The appendix is within normal limits. The bones are intact. Mild osteopenia. IMPRESSION: 1. Re-identified right lower lobe posterior dependent consolidation, 4.5 x 2.9 x 7 cm; round pneumonia suspected. 2. Cirrhosis 3. Splenomegaly, 16 cm. 4. Peripancreatic edema; subacute pancreatitis and/or mesenteric panniculitis. Clinical correlation suggested. 5. Umbilical hernia, 1.9 cm defect with 5 cm herniation and mural thickening; incarceration can not be excluded. Clinical correlation suggested. This document has been electronically signed by: Yony Gooden MD on 08/27/2025 22:57:57 Dictated By: Yony Gooden MD Signed By: <Electronically signed by Yony Gooden MD in OV> 08/27/252258 DD/ 56 TD/TT: 08/27/252256 [employer] Pul[employer] Equipment Operator: Procedure Note Donotuseinterpreter, Image - 08/27/[address] [place] [address] [address] Scan Report Signed Patient: Maki Stern#: [id number] : 1960cct:[id number] Age/Sex: 65 / FADM Date: 08/27/25 Loc: [facility]: Estelle Sandoval PA-C Ordering Physician: Estelle Sandoval PA-C Date of Service: 08/27/25 Procedure(s): CT abdomen pelvis wo IV con Accession Number(s): [id number] cc: Estelle Sandoval PA-C; [facility] Report Number: [id number]: Total DLP = 0.00 mGy-cm Reason for Exam: LLQ pain, severe distension CLINICAL HISTORY: LLQ pain, severe distension CT abdomen and pelvis without contrast Comparison: CT/SR - CT ABDOMEN PELVIS W IV CON - 06/09/25 19:37 EDT Findings: The lung bases are clear. Right lower lobe posterior dependent area of round consolidation, 4.5 x 2.9 x 7 cm. Left liver lobe subcentimeter granuloma. The liver demonstrates an irregular contour with hypertrophy of the caudate lobe. Prior cholecystectomy. Splenomegaly, 16 cm. The pancreas is homogeneous in attenuation. The left and right kidney demonstrate homogeneous enhancement. Peripancreatic edema. There is diffuse fecal material seen throughout the colon. Umbilical hernia, defect 1.9 cm with herniation 5 cm, heterogeneous in attenuation with mural thickening of the rim. Hiatal hernia. Diverticulosis. The uterus within normal limits. The appendix is within normal limits. The bones are intact. Mild osteopenia. IMPRESSION: 1. Re-identified right lower lobe posterior dependent consolidation, 4.5 x 2.9 x 7 cm; round pneumonia suspected. 2. Cirrhosis 3. Splenomegaly, 16 cm. 4. Peripancreatic edema; subacute pancreatitis and/or mesenteric panniculitis. Clinical correlation suggested. 5. Umbilical hernia, 1.9 cm defect with 5 cm herniation and mural thickening; incarceration can not be excluded. Clinical correlation suggested. This document has been electronically signed by: Yony Gooden MD on 08/27/2025 22:57:57 Dictated By: Yony Gooden MD Signed By: <Electronically signed by Yony Gooden MD in OV> 08/27/252258 DD/ 56 TD/TT: 08/27/252256 [employer] Equipment Operator: [facility] External Provider IMG CT PROCEDURES Edited Result - Final * CTA Chest PE Protocal (08/27/2025 7:54 PM EST) Anatomical Region Laterality Modality Body, Chest Computed Tomogra phy 08/27/2025 7:54 PM EST Narrative 08/27/2025 7:55 PM EST [place] [address] CT Scan Report Signed Patient: Catherine Stern MR#: [id number] : 1960 Acct:[id number] Age/Sex: 65 / F ADM Date: 08/27/25 Loc: HO.ED Attending Dr: Ordering Physician: Charlene More MD Date of Service: 08/27/25 Procedure(s): CT angio chest PE protocol Accession Number(s): [id number] cc: Charlene More MD; [facility] Report Number: [id number]: Total DLP = 552.00 mGy-cm Reason for Exam: sob CLINICAL HISTORY: sob CT angiography chest with contrast. 3D Postprocessing. Comparison: None provided Findings: The heart size is normal. RV/LV ratio is normal. Unremarkable thoracic aorta and great vessels. No aneurysm. No acute pulmonary embolus. Dilated esophagus with asymmetric mural thickening of the distal esophagus and GE junction. No main or segmental pulmonary emboli identified. Right lower lobe posterior medial aspect right areas of consolidation, 4.7 x 3.9 x 6.6 cm craniocaudal. The liver demonstrates a microlobulated contour with hypertrophy of the caudate lobe. Peripancreatic mildly edema. The bones are intact. IMPRESSION: 1. Right lower lobe posteromedial consolidation measuring 4.7 x 3.9 x 6.6 cm, concerning for pneumonia versus round atelectasis as identified on 05/2025. Tumor has not been excluded. Short-term follow-up is suggested. 2. Dilated esophagus with asymmetric mural thickening of the distal esophagus and gastroesophageal junction. 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 3. Cirrhosis. 4. Mild peripancreatic edema; acute pancreatitis can not be excluded. Clinical correlation suggested. 5. No main or segmental pulmonary emboli identified. This document has been electronically signed by: Yony Gooden MD on 08/27/2025 19:54:06 Dictated By: Yony Gooden MD Signed By: <Electronically signed by Yony Gooden MD in OV> 08/27/251954 DD/ 53 TD/TT: 08/27/251953 [employer] Equipment Operator: Procedure Note Donotuseinterpreter, Image - 08/27/[address] [place] [address] [address] Scan Report Signed Patient: Maki Stern#: [id number] : 1960cct:[id number] Age/Sex: 65 / FADM Date: 08/27/25 Loc: HO.ED Attending Dr: Ordering Physician: Charlene More MD Date of Service: 08/27/25 Procedure(s): CT angio chest PE protocol Accession Number(s): [id number] cc: Charlene More MD; [facility] Report Number: [id number]: Total DLP = 552.00 mGy-cm Reason for Exam: sob CLINICAL HISTORY: sob CT angiography chest with contrast. 3D Postprocessing. Comparison: None provided Findings: The heart size is normal. RV/LV ratio is normal. Unremarkable thoracic aorta and great vessels. No aneurysm. No acute pulmonary embolus. Dilated esophagus with asymmetric mural thickening of the distal esophagus and GE junction. No main or segmental pulmonary emboli identified. Right lower lobe posterior medial aspect right areas of consolidation, 4.7 x 3.9 x 6.6 cm craniocaudal. The liver demonstrates a microlobulated contour with hypertrophy of the caudate lobe. Peripancreatic mildly edema. The bones are intact. IMPRESSION: 1. Right lower lobe posteromedial consolidation measuring 4.7 x 3.9 x 6.6 cm, concerning for pneumonia versus round atelectasis as identified on 05/2025. Tumor has not been excluded. Short-term follow-up is suggested. 2. Dilated esophagus with asymmetric mural thickening of the distal esophagus and gastroesophageal junction. 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 3. Cirrhosis. 4. Mild peripancreatic edema; acute pancreatitis can not be excluded. Clinical correlation suggested. 5. No main or segmental pulmonary emboli identified. This document has been electronically signed by: Yony Gooden MD on 08/27/2025 19:54:06 Dictated By: Yony Gooden MD Signed By: <Electronically signed by Yony Gooden MD in OV> 08/27/251954 DD/ 53 TD/TT: 08/27/251953 [employer] Equipment Operator: [facility] External Provider IMG CT PROCEDURES Edited Result - Final * High Sensitivity Troponin I (08/27/2025 5:08 PM EST) TROPONIN I HIGH SENSITIVITY 3.3 <3.5 - 17.0 ng/L [facility] Comment:The [place] high sens itivity Troponin-I results should beused in conjunction with other diagnostic information suchas ECG, clinical observations and information, and patientsymptoms to aid in the diagnosis of [place]. 08/27/2025 5:08 PM EST 08/27/2025 5:11 PM EST Generic External Data Provider LAB BLOOD ORDERAB LES Final Result Performing Organization Address [facility] Co de Phone Number [facility] [address] [place] [phone] * NT-proBNP (08/27/2025 5:08 PM EST) [facility] NT-proBNP 56.3 <300 pg/mL [facility] Comment:Reference Range:Age Group (years) NT-proBNP (pg/ml) InterpretationAll <300 Negative: HF unlikelyFor patients presenting to the ED with clinical suspicion ofnew onset or worsening HF, see below:18 to <50 >299.9 to <450.0 Grayzone: [id number] to 75 >299.9 to <900.0 other causes of>75 >299.9 to <1800.0 NT-proBNP mitcygsou48 to <50 >449.9 Positive: HF ppixff01-64 >899.9>75 >1799.9Note: Elevated NT-proBNP levels should be interpreted inthe context of other clinical information. 08/27/2025 5:08 PM EST 08/27/2025 5:11 PM EST Generic External Data Provider LAB BLOOD ORDERAB LES Final Result Performing Organization Address [facility] de Phone Number [facility] [address] [place] [phone] * (ABNORMAL) CBC auto differential (08/27/2025 5:08 PM EST) [facility] White Blood Count 2.9(L) 4.8 - 10.8 X10*3/uL [facility] Red Blood Count 2.90(L) 4.20 - 5.50 X10*6/uL [facility] Hemoglobin 8.9(L) 12.0 - 16.0 g/dl [facility] Hematocrit 26.0(L) 37.0 - 47.0 % [facility] Mean Corpuscular Volume 89.7 80.0 - 98.0 fL [facility] Mean Corpuscular Hemoglobin 30.7 27.0 - 33.0 pg [facility] Mean Corpuscular HGB Conc 34.2 31.0 - 35.0 g/dl [facility] Red Cell Distribution Width 14.4 11.0 - 16.0 % [facility] Platelet Count 20(LL) 160 - 400 X10*3/uL [facility] Comment:Results of PLTS call ed to and read back by 08/27/25 at 1736 by DIANN. Mean Platelet Volume 11.1 9.4 - 12.3 fL [facility] Neutrophils Percent Auto 66.1 45 - 73 % [facility] Imm Gran Pct Auto 0.7(H) 0.0 - 0.4 % [facility] Lymphocytes Percent Auto 15.4(L) 20 - 40 % [facility] Monocytes Percent Auto 10.5 2 - 11 % [facility] Eosinophils Percent Auto 7.0(H) 0 - 4 % [facility] Basophils Percent Auto 0.3 0 - 2 % [facility] NRBC Pct Auto 0.0 0.0 - 0.2 /100WBC [facility] Neutrophils Absolute Auto 1.9(L) 2.0 - 8.3 x10*3/uL [facility] Imm Gran Abs Auto 0.02 0.00 - 0.03 X10*3/uL [facility] Lymphocytes Absolute Auto 0.4(L) 1.2 - 4.9 X10*3/uL [facility] Monocytes Absolute Auto 0.3 0.1 - 1.2 X10*3/uL [facility] Eosinophils Absolute Auto 0.2 0.0 - 0.4 X10*3/uL [facility] Basophils Absolute Auto 0.0 0.0 - 0.2 X10*3/uL [facility] NRBC Abs Auto 0.000 0.0 - 0.012 X10*3/uL [facility] 08/27/2025 5:08 PM EST 08/27/2025 5:11 PM EST us Generic External Data Provider LAB BLOOD ORDERAB LES Final Result Performing Organization Address [facility]/ZIP Co de Phone Number [facility] [address] [place] [phone] * Lipase (08/27/2025 5:08 PM EST) Lipase 27 8 - 78 U/L [facility] 08/27/2025 5:08 PM EST 08/27/2025 5:11 PM EST Generic External Data Provider LAB BLOOD ORDERAB LES Final Result Performing Organization Address [facility] Phone Number [facility] [address] [place] [phone] * (ABNORMAL) Hepatic Function Panel (08/27/2025 5:08 PM EST) Bilirubin, Total 0.7 0.0 - 1.0 mg/dL [facility] Bilirubin, Direct 0.2 0.0 - 0.5 mg/dL [facility] Aspartate Amino Transferase 37(H) 5 - 31 U/L [facility] Comment:Slight Hemolysis.Int erpret result with caution. Alanine Aminotransferase 24 0 - 31 U/L [facility] Total Protein 6.2(L) 6.5 - 8.0 g/dL [facility] Albumin Level 2.9(L) 3.5 - 5.0 g/dL [facility] Alkaline Phosphatase 145(H) 39 - 117 U/L [facility] 08/27/2025 5:08 PM EST 08/27/2025 5:11 PM EST Generic External Data Provider LAB BLOOD ORDERAB LES Final Result Performing Organization Address [facility] Co de Phone Number [facility] [address] [place] [phone] * (ABNORMAL) Basic Metabolic Panel (08/27/2025 5:08 PM EST) Sodium 135 135 - 145 mmol/L [facility] Potassium 4.5 3.3 - 5.1 mmol/L [facility] Comment:Slight Hemolysis.Int erpret result with caution. Chloride 111(H) 96 - 108 mmol/L [facility] Carbon Dioxide 19(L) 22 - 29 mmol/L [facility] Anion Gap 10(L) 12 - 20 [facility] Urea Nitrogen (BUN) 34(H) 9 - 16 mg/dL [facility] Creatinine, Serum 1.11 0.5 - 1.4 mg/dL [facility] Creatinine Clr Calc Pharmacy 53.3 [facility] Comment:Provided height and weight: 157.48 cm,89.7 kg.eGFR (calculated from the MDRD study equation) and eCrCl(calculated from the Cockcroft-Gault equation) are based ondifferent parameters and may not yield comparable results.If eCrCl result is absurd, please check patient'sheight/weight. Estimated Glomerular Filt Rate 49 [facility] Comment:Chronic Kidney Disea se: Estimated GFR < 60 mL/min/1.33i5Ikbssb Kidney Disease: Estimated GFR < 15 mL/min/1.73m2 Glucose 145(H) 60 - 115 mg/dL [facility] Calcium 8.3(L) 8.4 - 10.2 mg/dL [facility] 08/27/2025 5:08 PM EST 08/27/2025 5:11 PM EST us Generic External Data Provider LAB BLOOD ORDERAB LES Final Result [facility] [address] [place] [address] [phone] * XR Chest 1 View (08/27/2025 4:52 PM EST) Anatomical Region Laterality Modality Chest Radiographic Amelia ging 08/27/2025 4:52 PM EST Narrative 08/27/2025 5:02 PM EST [address] [address] XRay Report Signed Patient: Catherine Stern MR#: [id number] : 1960 Acct:[id number] Age/Sex: 65 / F ADM Date: 08/27/25 Loc: .ED Attending Dr: Ordering Physician: Charlene More MD Date of Service: 08/27/25 Procedure(s): XR chest 1V Accession Number(s): [id number] cc: Charlene More MD; [facility] Reason for Exam: cp EXAMINATION: XR CHEST CLINICAL INFORMATION: cp COMPARISON: August 03, 2025 TECHNIQUE: Frontal view of the chest was obtained. FINDINGS: There is persistent blunting of the right costophrenic angle. Lungs clear. Heart size is within normal limits. XR/XR chest 1V IMPRESSION: Persistent blunting of the right costophrenic angle. This could be related to pleural effusion, atelectasis, and/or scarring. Electronically signed by: John Arciniega MD 08/27/2025 05:00 PM [facility] Dictated By: John Arciniega MD Signed By: <Electronically signed by John Arciniega MD in OV> 08/27/25 1700 DD/ 1652 TD/TT: 08/27/251654 Glass Pul[employer] Equipment Operator: Procedure Note Donotuseinterpreter, Image - 08/27/[address] [address] XRay Report Signed Patient: Alicia SternnMR#: [id number] : 1960cct:[id number] Age/Sex: 65 / FADM Date: 08/27/25 Loc: .ED Attending Dr: Ordering Physician: Charlene More MD Date of Service: 08/27/25 Procedure(s): XR chest 1V Accession Number(s): [id number] cc: Charlene More MD; [facility] Reason for Exam: cp EXAMINATION: XR CHEST CLINICAL INFORMATION: cp COMPARISON: August 03, 2025 TECHNIQUE: Frontal view of the chest was obtained. FINDINGS: There is persistent blunting of the right costophrenic angle. Lungs clear. Heart size is within normal limits. XR/XR chest 1V IMPRESSION: Persistent blunting of the right costophrenic angle. This could be related to pleural effusion, atelectasis, and/or scarring. Electronically signed by: John Arciniega MD 08/27/2025 05:00 PM EST Dictated By: John Arciniega MD Signed By: <Electronically signed by John Arciniega MD in OV> 08/27/25 1700 DD/ 1652 TD/TT: 08/27/251654 Glass Pul[employer] Equipment Operator: [facility] External Provider IMG XR PROCEDURES Final Result * US Abdomen Limited (07/16/2025 2:00 PM EDT) Anatomical Region Laterality Modality Abdomen Ultrasound 07/16/2025 2:00 PM EDT Narrative 06/11/2025 8:40 AM EDT [place] [address] Ultrasound Report Signed Patient: Catherine Stern MR#: [id number] : 1960 Acct:[id number] Age/Sex: 64 / F ADM Date: 07/16/25 Loc: HO.[facility] Attending Dr: Tono Nicole MD Ordering Physician: Mallorie Watson NP Date of Service: 07/16/25 Procedure(s): US abdomen limited Accession Number(s): [id number] cc: Mallorie Watson POWERHOUSE TENDER; [facility] Reason for Exam: ASCITES EXAMINATION: [...] Brock Acosta MD 07/16/2025 02:20 PM EDT RP Dictated By: Brock Acosta MD Signed By: <Electronically signed by Brock Acosta MD in OV> 07/16/25 142 DD/ 1400 TD/TT: 07/16/25 1417 Glass Pul[employer] Equipment Operator: Procedure Note Donotuseinterpreter, Image - 07/16/2025 [place] [address] Ultrasound Report Signed Patient: Maki Stern#: [id number] : 1960cct:[id number] Age/Sex: 64 / FADM Date: 07/16/25 Loc: HO.[facility] Attending Dr: Tono Nicole MD Ordering Physician: Mallorie Watson NP Date of Service: 07/16/25 Procedure(s): US abdomen limited Accession Number(s): [id number] cc: Mallorie Watson POWERHOUSE TENDER; [facility] Reason for Exam: ASCITES EXAMINATION: [...] Brock Acosta MD 07/16/2025 02:20 PM EDT RP Dictated By: Brock Acosta MD Signed By: <Electronically signed by Brock Acosta MD in OV> 07/16/25 1420 DD/ 1400 TD/TT: 07/16/25 1417 Glass [employer] Equipment Operator: [facility] External Provider IMG US PROCEDURES Edited Result - Final * (ABNORMAL) Glucose, Whole Blood (07/16/2025 1:33 PM EDT) Only the most recent of2 resultswithin the time period is included. Pathologist [facility] Glucose, Whole Blood 197(H) 60 - 115 mg/dL [facility] Comment:METER #: [id number] 07/16/2025 1:3 3 PM EDT 07/16/2025 1:36 PM EDT Generic External Data Provider LAB BLOOD ORDERAB LES Final Result Performing Organization Address [facility]/ZIP Co de Phone Number [facility] [address] [place] [phone] * (ABNORMAL) Prothrombin Time-INR (07/08/2025 10:57 AM EDT) [facility] Prothrombin Time 14.2(H) 10.9 - 12.4 SEC [facility] INTERNATIONAL NORM RATIO 1.2(H) 0.9 - 1.1 [facility] Comment:INTERNATIONAL NORMAL IZED RATIO (INR) [...] ORDERAB LES Final Result Performing Organization Address City/[facility]/ZIP Co de Phone Number [facility] [address] [place] [phone] * (ABNORMAL) CBC (07/08/2025 10:57 AM EDT) [facility] White Blood Count 3.0(L) 4.8 - 10.8 X10*3/uL [facility] Red Blood Count 2.82(L) 4.20 - 5.50 X10*6/uL [facility] Hemoglobin 8.9(L) 12.0 - 16.0 g/dl [facility] Hematocrit 25.9(L) 37.0 - 47.0 % [facility] Mean Corpuscular Volume 91.8 80.0 - 98.0 fL [facility] Mean Corpuscular Hemoglobin 31.6 27.0 - 33.0 pg [facility] Mean Corpuscular HGB Conc 34.4 31.0 - 35.0 g/dl [facility] Red Cell Distribution Width 14.4 11.0 - 16.0 % [facility] Platelet Count 22(L) 160 - 400 X10*3/uL [facility] Mean Platelet Volume 11.9 9.4 - 12.3 fL [facility] NRBC Pct Auto 0.0 0.0 - 0.2 /100WBC [facility] NRBC Abs Auto 0.000 0.0 - 0.012 X10*3/uL [facility] 07/08/2025 10:5 7 AM EDT 07/08/2025 10:57 AM EDT Generic External Data Provider LAB BLOOD ORDERAB LES Final Result Performing Organization Address City/[facility]/ZIP Co de Phone Number [facility] [address] [place] [phone] * B Type Natriuretic Peptide (BNP) (07/08/2025 10:57 AM EDT) B Type Natriuretic Peptide 51 <100 pg/mL [facility] Blood Venous blood specimen / Unknown 07/08/2025 10:57 AM EDT 07/08/2025 10:57 AM EDT [facility] MECHANIC CHIEF LAB BLOOD ORDERABLES Final Re sult Performing Organization Address City/[facility]/ZIP Co de Phone Number [facility] [address] [place] [phone] * (ABNORMAL) Comprehensive Metabolic Panel (07/08/2025 10:57 AM EDT) Sodium 136 135 - 145 mmol/L [facility] Potassium 4.5 3.3 - 5.1 mmol/L [facility] Chloride 110(H) 96 - 108 mmol/L [facility] Carbon Dioxide 23 22 - 29 mmol/L [facility] Anion Gap 8(L) 12 - 20 [facility] Urea Nitrogen (BUN) 31(H) 9 - 16 mg/dL [facility] Creatinine, Serum 0.98 0.5 - 1.4 mg/dL [facility] Estimated Glomerular Filt Rate 57 [facility] Comment:Chronic Kidney Disea se: Estimated GFR < 60 mL/min/1.70j4Pxxyrk Kidney Disease: Estimated GFR < 15 mL/min/1.73m2 Glucose 237(H) 60 - 115 mg/dL [facility] Calcium 8.6 8.4 - 10.2 mg/dL [facility] Bilirubin, Total 0.7 0.0 - 1.0 mg/dL [facility] Aspartate Amino Transferase 41(H) 5 - 31 U/L [facility] Alanine Aminotransferase 24 0 - 31 U/L [facility] Total Protein 6.8 6.5 - 8.0 g/dL [facility] Albumin Level 3.0(L) 3.5 - 5.0 g/dL [facility] Alkaline Phosphatase 151(H) 39 - 117 U/L [facility] 07/08/2025 10:5 7 AM EDT 07/08/2025 10:57 AM EDT us Generic External Data Provider LAB BLOOD ORDERAB LES Final Result [facility] [address] [place] [phone] * US Abdomen Complete (06/28/2025 10:44 AM EDT) Anatomical Region Laterality Modality Abdomen Ultrasound 06/28/2025 10:4 4 AM EDT Narrative 06/28/2025 1:02 PM EDT [address] [address] Ultrasound Report Signed Patient: Catherine Stern MR#: [id number] : 1960 Acct:[id number] Age/Sex: 64 / F ADM Date: 06/28/25 Loc: HO.[facility] Attending Dr: Tono Nicole MD Ordering Physician: Bobbi Roldan MD Date of Service: 06/28/25 Procedure(s): US abdomen complete Accession Number(s): [id number] cc: SusanAna [facility]; Bobbi Roldan MD Reason for Exam: K74.60 [...] 06/28/25 1300 DD/ 1044 TD/TT: 06/28/25 1057 Glass Pul[employer] Equipment Operator: Procedure Note Donotliliter, Image - 06/28/2025 [place] [address] Ultrasound Report Signed Patient: Maki Stern#: [id number] : 1960cct:[id number] Age/Sex: 64 / FADM Date: 06/28/25 Loc: HO.[facility] Attending Dr: Tono Nicole MD Ordering Physician: Bobbi Roldan MD Date of Service: 06/28/25 Procedure(s): US abdomen complete Accession Number(s): [id number] cc: Ana Davis [facility]; Bobbi Roldan MD Reason for Exam: K74.60 [...] 06/28/25 1300 DD/ 1044 TD/TT: 06/28/25 1057 Glass Pulver[employer] Equipment Operator: [facility] External Provider IMG US PROCEDURES Edited Result - Final * Lipid Panel, Standard (08/31/2024 11:55 AM EST) Triglycerides 53 <150 mg/dL [facility] Comment:Desirable Triglyceri de: less than 150 mg/dLBorderline High Triglyceride 150-199 mg/dLHigh Triglyceride: 200-499 mg/dLVery High Triglyceride: greater than or equal to 5OO mg/dL Cholesterol 132 <200 mg/dL [facility] Comment:Desirable Cholestero l: less than 200 mg/dLBorderline High Cholesterol: 200-239 mg/dLHigh Cholesterol: greater than 239 mg/dL LDL Cholesterol Calculated 74 <100 mg/dL [facility] Comment:Desirable LDL: less than 100 mg/dLNear Optimal/Above Optimal LDL: 110- 129 mg/dLBorderline High LDL: 130-159 mg/dLHigh LDL: 160-189 mg/dLVery High LDL: greater than or equal to 190 mg/dL HDL Cholesterol 48 >40 mg/dL [facility] Comment:Desirable HDL: great er than 40 mg/dL Note: This HDL assay may give artificially low results in patients with liver disease. Blood Venous blood specimen / Unknown 08/31/2024 11:55 AM EST 08/31/2024 1:07 PM EST [facility] MECHANIC CHIEF LAB BLOOD ORDERABLES Final Re sult [facility] [address] [place] [phone] * Hepatitis C Antibody with Reflex to HCV, RNA, Quantitative, Real-Time PCR (12/03/2022 11:57 AM EST) Hepatitis C Antibody NON-REACT LAURA NON-REACT LAURA [employer] [place] [employer] Index 0.18 <1.00 [employer] [place] [employer] Comment: HCV antibody was non-reactive. There is no laboratory evidence of HCV infection. In most cases, no further action is required. However, if recent HCV exposure is suspected, a test for HCV RNA (test code 66589) is suggested. For additional information please refer to http://[employer]/faq/EFN91w6 (This link is being provided for informational/ educational purposes only.) Blood Venous blood specimen / Unknown 12/03/2022 11:57 AM EST 12/03/2022 11:58 AM EST Narrative [facility] - 12/04/2022 2:01 AM EST FASTING:NO FASTING: NO [facility] LAB BLOOD ORDERABLES Final Re sult [facility] [address] [facility], [facility], [place] [phone] [employer] [place] [employer] [address] [facility], ([address]) [place] [address] * HIV-1/2 Antigen and Antibodies, Fourth Generation, with Reflexes (12/03/2022 11:57 AM EST) Pathologist [facility] HIV Antigen/Antibody, 4th Generation NON-REAC TIVE NON-REAC TIVE [employer] [place] [employer] Comment: HIV-1 antigen and HIV-1/HIV-2 antibodies were [...] purpose. For additional information please refer to http://[employer]/faq/QUI390 (This link is being provided for informational/ educational purposes only.) The performance of this assay has not been clinically validated in patients less than 2 years old. Blood Venous blood specimen / Unknown 12/03/2022 11:57 AM EST 12/03/2022 11:58 AM EST Narrative [facility] - 12/04/2022 2:01 AM EST FASTING:NO FASTING: NO [facility] MECHANIC CHIEF LAB BLOOD ORDERABLES Final Re sult [facility] [address], [place] [address] [employer] [facility] [address] [facility], ([address]) [place] [address] * DIGITAL BILATERAL SCREEN 1 (08/17/2019 4:20 PM EDT) Anatomical Region Laterality Modality Breast Bilateral Mammography 08/17/2019 4:20 PM EDT Narrative 08/17/2019 4:22 PM EDT Refer to the Notes tab for result details [facility] Procedure: DIGITAL BILATERAL SCREEN 1 Procedure Note Provider, MD Paulo - 01/12/2023 Refer to the Notes tab for result details [facility] Procedure: DIGITAL BILATERAL SCREEN 1 Yash Arredondo MECHANIC CHIEF IMG BI PROCEDURES Final Result from Last 3 Months or Most Recently Relevant to Health Maintenance Additional Health Concerns Active Problems Noted Date [...] 09/15/2025 Patient has chronic kidney disease 09/15/2025 Insurance STANDARD Care Teams Electric Meter Tester Helper Relationship Specialty Start Date End Date DexterAna, [facility] [address] [place] [address] PCP - General Family Medicine 04/05/22 Andree Ulloa PharmD [address] [place] [phone] Pharmacist Internal Medicine 05/09/23 Flavia Segundo [facility] [facility] 10/10/23 Gabrielle Fitch [facility] [facility]st[facility] 11/05/24 [employer] 02/06/25
--- OUTSIDE RECORDS SUMMARY | 2025-09-15 16:42 | XMS_ITS | Clinical Summary ---
Author Organization [facility] Address [address] [place] [address] Phone Care Team Providers Care Public Defender Name Role Phone Yash Arredondo NP Primary Care Provider [phone] Allergies Active Allergy Reactions Criticality Noted Date [...] QURESHI cirrhosis MELD-Na: 16. Followed by [facility]. Paracentesis q. 2 weeks. EGD 2019 with grade II varices. Colonoscopy 2019 with polyps removed. Tubular adenoma present. Lactulose 2-3x/day for hepatic encephalopathy with goal 2-3 BM's per day. On propranolol 30mg b.I.d for varices. Lasix 100mg daily and sironolactione 150mg for ascites. Thrombocytopenia (CMS/HCC V24) 04/21/2018 Surgical History Surgery Date Site/Laterality Comments OTHER SURGICAL HISTORY N/A PROCEDURE: GA ABDOM PARACENTESIS DX/THER W/IMAGING GUIDANCE Medical History [...] Years Used Date Smoking Tobacco: Former Cigarettes 45.9 S tarted: 10/21/1979 Smokeless Tobacco: Never Alcohol [...] Genao MD LAB BLOOD ORDERABLES Final Result [facility] [address] [place] [address], * Lipid panel with reflex to direct LDL (10/13/2024 5:24 AM EST) Cholesterol 125 0 - 200 mg/dL LAB CHEMISTRY METHOD 10/13/2024 6:43 AM EST [facility] Triglycerides 66 0 - 150 mg/dL LAB CHEMISTRY METHOD 10/13/2024 6:43 AM [facility] HDL 48 >=40 mg/dL LAB CHEMISTRY METHOD 10/13/2024 6:43 AM [facility] LDL Calculated 64 0 - 100 mg/dL LAB CHEMISTRY METHOD 10/13/2024 6:43 AM EST [facility] VLDL Cholesterol Luke 13.2 mg/dL LAB CHEMISTRY METHOD 10/13/2024 6:43 AM [facility] Non HDL Chol. (LDL+VLDL) 77 <145 mg/dL LAB CHEMISTRY METHOD 10/13/2024 6:43 AM [facility] Chol/HDL Ratio 2.6 0.0 - 4.4 LAB CHEMISTRY METHOD 10/13/2024 6:43 AM EST [facility] Blood Venous blood specimen / Unknown Venipuncture / Unknown 10/13/2024 5:24 AM EST 10/13/2024 6:07 AM EST Salena RODRIGUEZ LAB BLOOD ORDERABLES Fi nal Result [facility] [address] [place] [address], from Last 3 Months or Most Recently Relevant to Health Maintenance Insurance MEDICAID - [place] Advance Directives Documents on File Type Date Recorded Patient Softball Winder Expl anation Health Care Decision (hx) 12/28/2023 [...] currently active code status orders. Care Teams Public Defender Relationship Specialty Start Date End Date Yash Arredondo NP [address] [place] [address] PCP - General 09/15/13
--- OUTSIDE RECORDS SUMMARY | 2025-09-15 16:42 | XMS_ITS | Encounter Summary ---
Author Organization [employer] Address [address] [facility] 7t [place] [address] Care Team Providers Care Post Commander Name Role Phone [facility] Primary Care Provider [phone] Andree Ulloa PharmD Unavailable [phone] Encounter Details Date Type Department Care Team ([facility] st Contact Info) Description 09/15/2025 Telephone [facility] [address] [place], [place] [phone] [facility] [address] [place] [address] Social History Tobacco Use Types Packs/Day Years [...] Description 09/20/2025 10:00 AM EST Office Visit [facility] [address] [place] [address] CummingtonAna levy, TREASURY MANAGEMENT SALES CONSULTANT [address] [place] [address] documented as of this encounter Goals Goal [...] Component 7.7( 10:33 AM EST) No Andree Ulloa, PharmD Help patients manage their type 2 diabetes Care Plan Help patients manage their type 2 diabetes No Kirstie Barajas PharmD Weekly blood pressure task Care Plan Weekly blood pressure task No Eloy-Sussy Morrissa, PharmD Help patients manage their type 2 diabetes Care Plan Help patients manage their type 2 diabetes No Eloy-Kirstie Morris, PharmD Patient has chronic kidney disease Care Plan Patient has chronic kidney disease No Kirstie Barajas, PharmD Weekly blood pressure task Care Plan Weekly blood pressure task No Taes-Sussy Morrissa, PharmD Patient has chronic kidney disease Care Plan Patient has chronic kidney disease No Sussy Barajassa, PharmD Weekly blood pressure task Care Plan [...] Weekly blood pressure task No Salazar, Ines Patient has chronic kidney [...] chronic kidney disease No Harrison Salazar, PharmD Patient has chronic [...] documented as of this encounter Care Teams Post Commander Relationship Specialty Start Date End Date Ana Davis, TREASURY MANAGEMENT SALES CONSULTANT [address] [place] [address] PCP - General Family Medicine 04/05/22 Andree Ulloa, Cesia [address] [place] [address] Pharmacist Internal Medicine 05/09/23 Flavia Segundo Ready Mix Truck DriverSupervisor Pairing And Inspecting 10/10/23 Gabrielle Fitch Ready Mix Truck DriverSupervisor Pairing And Inspecting 11/05/24 [employer] 02/06/25 documented as of this encounter
--- OUTSIDE RECORDS SUMMARY | 2025-09-15 16:43 | XMS_ITS | Encounter Summary ---
Author Organization [employer] Address [address] [facility] 7t [place] [address] Care Team Providers Care Oracle Ebs Consultant Name Role Phone [facility] Primary Care Provider [phone] Andree Ulloa PharmD Unavailable [phone] Maude Dennis RN Unavailable [phone] Jacquie Sarkar Unavailable Jacquie Sarkar Unavailable Reason for Visit * Reason Onset Date Comments Med Refill 08/05/2024 Encounter Details Date Type Department Care Team (Late st Contact Info) Description 08/05/2024 Telephone [facility] [address] [place], [place] [phone] [facility] [address] [place] [address] Med Refill Social History Tobacco Use Types [...] the past 12 months, has t he [employer], gas, oil or water [employer] threatened to shut off services in your [...] from pt requesting a HDF appt. Hospital: [facility] Date of admission: 06/23/24 Discharge date: 08/13/24 Diagnosed: Multiple fractures of the ribs documented in this encounter Plan of Treatment Upcoming Encounters Date Type Department Care Team (Late st Contact Info) Description 09/20/2025 10:00 AM EST Office Visit [facility] [address] [place] [address] [place] Ana, [facility] [address] [place] [address] documented as of this encounter Goals Goal [...] day Lifestyle Worsening( 4:12 PM EDT) No Jcaob Llanos PharmD Hemoglobin A1c < 8 Result Component 7.7( 10:33 AM EST) No Andree Ulloa PharmD documented as of this encounter Visit Diagnoses Not on filedocumented in this encounter Additional Health Concerns Assessment Noted Time PHQ-9 Depression Total Score: 024 10:29 AM EDT documented as of this encounter Care Teams Oracle Ebs Consultant Relationship Specialty Start Date End Date Susan KAROLINA Perez [address] [place] [address] PCP - General Family Medicine 04/05/22 Andree Ulloa PharmD [address] [place] [address] Pharmacist Internal Medicine 05/09/23 Maude Dennis, MARQUITA [address] [place] [address] Plasma ProcessorElectronic Security Technician 08/27/24 12/22/24 Jacquie Sarkar 05/20/25 06/03/25 Jacquie Sarkar 06/10/25 06/15/25 Flavia Segundo ReplacerElectronic Security Technician 10/10/23 [employer] 08/14/24 02/11/25 Gabrielle Fitch ReplacerElectronic Security Technician 11/05/24 [employer] 02/06/25 documented as of this encounter
--- OUTSIDE RECORDS SUMMARY | 2025-09-15 16:43 | XMS_ITS | Encounter Summary ---
Author Organization [employer] Address [address] [facility] 7t [place] [address] Care Team Providers Care Loss Prevention Analyst Name Role Phone [place] [facility] Primary Care Provider [phone] Andree Ulloa PharmD Unavailable [phone] Maude Dennis RN Unavailable [phone] Jacquie Sarkar Unavailable Jacquie Sarkar Unavailable Encounter Details Date Type Department Care Team (Late st Contact Info) Description 01/21/2023 Telephone [facility] MEDICINE [address] [place], [place] [phone] Kimberly Donladson LPN Social History Tobacco Use Types Packs/Day [...] Department Care Team (Late Contact Info) Description 09/20/2025 10:00 AM EST Office Visit [facility] [address] [place], [place] [phone] [place] [address] [place] [address] documented as of this encounter Visit Diagnoses Not on filedocumented in this encounter Additional Health Concerns Assessment Noted Time PHQ-9 Depression Total Score: 0 12/03/19 10:53 AM EST documented as of this encounter Care Teams Loss Prevention Analyst Relationship Specialty Start Date End Date Ana Davis, CARE REP [address] [place] [address] PCP - General Family Medicine 04/05/22 Andree Ulloa PharmD [address] [place], [place] [phone] Pharmacist Internal Medicine 05/09/23 Maude Dennis RN [address] [place] [address] Dining Room CaptainTool Machine Set Up Operator 08/27/24 12/22/24 Jacquie Sarkar 05/20/25 06/03/25 Jacquie Sarkar 06/10/25 06/15/25 Flavia Segundo Yard DriverTool Machine Set Up Operator 10/10/23 [employer] 08/14/24 02/11/25 Gabrielle Fitch Yard DriverTool Machine Set Up Operator 11/05/24 [employer] 02/06/25 documented as of this encounter
--- OUTSIDE RECORDS SUMMARY | 2025-09-15 16:43 | XMS_ITS | Encounter Summary ---
Author Organization [facility] [facility] Address [address] [facility] 7t [place] [address] Care Team Providers Care Comparison Shopper Name Role Phone Ana Davis AUTOMOTIVE GENERAL SALES MANAGER Primary Care Provider [phone] Andree Ulloa PharmD Unavailable [phone] Jacquie Sarkar Unavailable Jacquie Sarkar Unavailable Encounter Details Date Type Department Care Team (Late st Contact Info) Description 05/14/2025 Orders Only [facility] MEDICINE [address] [place], [place] [phone] Maye Ortiz NP [address] [place], [place] [phone] Social History Tobacco Use Types Packs/Day Years [...] Description 09/20/2025 10:00 AM EST Office Visit [facility] [address] [place] [address] [facility] [address] [place] [address] documented as of this encounter Goals Goal [...] documented as of this encounter Care Teams Comparison Shopper Relationship Specialty Start Date End Date Ana Davis, AUTOMOTIVE GENERAL SALES MANAGER [address] [place] [address] PCP - General Family Medicine 04/05/22 Andree Ulloa PharmD [address] [place] [address] Pharmacist Internal Medicine 05/09/23 Jacquie Sarkar 05/20/25 06/03/25 Jacquie Sarkar 06/10/25 06/15/25 Flavia Segundo Emd Special Education TeacherRoom Service Associate 10/10/23 Gabrielle Fitch Emd Special Education TeacherRoom Service Associate 11/05/24 [employer] 02/06/25 documented as of this encounter
--- OUTSIDE RECORDS SUMMARY | 2025-09-15 16:43 | XMS_ITS | Encounter Summary ---
Author Organization [employer] Address [address] [facility] 7t [place] [address] Care Team Providers Care Drapery Examiner Name Role Phone [facility] Primary Care Provider [phone] Andree Ulloa PharmD Unavailable [phone] Maude Dennis RN Unavailable [phone] Jacquie Sarkar Unavailable Jacquie Sarkar Unavailable Reason for Visit * Reason Onset Date Comments requesting a call back 02/05/2023 Encounter Details Date Type Department Care Team ([facility] st Contact Info) Description 02/05/2023 Telephone [facility] [address] [place], [place] [phone] [facility] [address] [place] [address] requesting a call back Social History Tobacco [...] . States needs to return them to [facility] . documented in this encounter Plan of Treatment Upcoming Encounters Date Type Department Care Team (Late st Contact Info) Description 09/20/2025 10:00 AM EST Office Visit [facility] [address] [place] [address] [facility] [address] [place] [address] documented as of this encounter Visit Diagnoses Not on filedocumented in this encounter Additional Health Concerns Assessment Noted Time PHQ-9 Depression Total Score: 0 12/03/19 10:53 AM EST documented as of this encounter Care Teams Drapery Examiner Relationship Specialty Start Date End Date Ana Davis [facility] [address] [place] [address] PCP - General Family Medicine 04/05/22 Andree Ulloa PharmD [address] [place] [address] Pharmacist Internal Medicine 05/09/23 Maude Dennis, MARQUITA [address] [place] [address] School SupervisorSemiconductor Wafer Inspector 08/27/24 12/22/24 Jacquie Sarkar 05/20/25 06/03/25 Jacquie Sarkar 06/10/25 06/15/25 Flavia Segundo Steam Locomotive Firer/FiremanSemiconductor Wafer Inspector 10/10/23 [employer] 08/14/24 02/11/25 Gabrielle Fitch Steam Locomotive Firer/FiremanSemiconductor Wafer Inspector 11/05/24 [employer] 02/06/25 documented as of this encounter
--- OUTSIDE RECORDS SUMMARY | 2025-09-15 16:43 | XMS_ITS | Encounter Summary ---
Author Organization [employer] Address [address] [facility] 7t [place] [address] Care Team Providers Care Gameplay Engineer Name Role Phone Ana Davis INDUSTRIAL ROOFER HELPER Primary Care Provider [phone] Andree Ulloa PharmD Unavailable [phone] Reason for Visit * Reason Onset Date Comments Hospital Follow-up 09/15/2025 Encounter Details Date Type Department Care Team (Late st Contact Info) Description 09/15/2025 Telephone [facility] [address] [place], [place] [phone] Tyler Jones FNP [address] [place] [address] Hospital Follow-up Social History Tobacco Use Types Packs/Day Years [...] of Assessment Author 8 09/15/2025 11:10 AM aPrker Damon [place] * Over the last 2 [...] encounter Miscellaneous Notes * Telephone Encounter - Yojana Phong Lau - 09/15/2025 11:47 AM EST Tc from Clarisa retuning FOREIGN LANGUAGE INTERPRETER call in regard of the hospital follow up appointment . Contact Clarisa AMADOR at [phone] documented in this encounter Plan of Treatment Upcoming Encounters Date Type Department Care Team (Late st Contact Info) Description 09/20/2025 10:00 AM EST Office Visit [facility] [address] [place], [place] [phone] [place] Ana [facility] [address] [place] [address] documented as of this encounter Goals Goal [...] their type 2 diabetes No Kirstie Barajas, PharmD Weekly blood pressure task Care Plan Weekly blood pressure task No Kirstie Barajas, PharmD Help patients manage their type 2 diabetes Care Plan Help patients manage their type 2 diabetes No Taes-Gambl Sussy jimenezsa, PharmD Patient has chronic kidney disease Care Plan Patient has chronic kidney disease No Taes-Gambl eKirstie, PharmD Weekly blood pressure task Care Plan Weekly blood pressure task No EloyKirstie Gomes PharmD Patient has chronic kidney disease Care [...] Care Plan Weekly blood pressure task No Manueal Mukherjee [place] Patient has chronic kidney disease [...] documented as of this encounter Care Teams Gameplay Engineer Relationship Specialty Start Date End Date [facility] [address] [place] [address] PCP - General Family Medicine 04/05/22 Andree Ulloa PharmD [address] [place] [address] Pharmacist Internal Medicine 05/09/23 Flavia Segundo Centrifugal SeparatorDirector Voice 10/10/23 Gabrielle Fitch Centrifugal SeparatorDirector Voice 11/05/24 [employer] 02/06/25 documented as of this encounter
== END 2025-09-15 13:36 | disposition home or self-care (01) ==
LOC: HO.LNP 13:35
DX: N30.00 Acute cystitis without hematuria (principal)
CPT/HCPCS: 87086

== ENCOUNTER 2025-10-13 15:05 | Outpatient (REF) | payer MEDICAID, SELFPAY ==
--- OUTSIDE RECORDS SUMMARY | 2025-10-13 15:09 | XMS_ITS | Encounter Summary ---
Author Organization [employer] Address [address] [facility] 7t [place] [address] Care Team Providers Care Credit Control Officer Name Role Phone Ana Davis PYROMETER OPERATOR Primary Care Provider [phone] Andree Ulloa PharmD Unavailable [phone] Jacquie Sarkar Unavailable Jacquie Sarkar Unavailable Reason for Referral * Consultation (Routine) - Authorized Specialty Diagnoses / Procedures Referred By Ivelisse segura Referred To Contact Pharmacy Diagnoses Type 2 diabetes mellitus without complication, with long-term current use of insulin (HCC) Catalina Mendez MD [address] [place] [address] Phone: tel: fax: Referral ID Status Reason Start Date Expiration Date Visits Requested Visits Authorized [id number] Authorized Consult and Treat 02/23/2025 02/23/2026 6 6 Encounter Details Date Type Department Care Team (Late st Contact Info) Description 02/23/2025 Orders Only [facility] MEDICINE [address] [place] [address] Catalina Mendez MD [address] [place], [place] [phone] Type 2 diabetes mellitus without complication, with [...] Care Team (Late st Contact Info) Description 10/18/2025 10:30 AM EST Medication Management [facility]INE [address] [place] [id number] Harrison Salazar, PharmD [address] [place] [address] 10/27/2025 11:30 AM EST Office Visit [facility] MEDICINE [address] [place] [address], [place] [address] [facility] [address] [place] [address] Scheduled Referrals Name Type Priority Associated Diagnoses Orde r Schedule Referral to Pharmacy CDTM Outpatient Referral Routine Type 2 diabetes mellitus without complication, with long-term current use of insulin ([facility]) Ordered: 02/23/2025 documented as of this encounter [...] complication, with long-term current use of insulin ([facility])- Primary documented in this encounter Additional Health Concerns Assessment Noted Time PHQ-9 Depression Total Score: 10 025 1:44 PM EST documented as of this encounter Care Teams Credit Control Officer Relationship Specialty Start Date End Date [facility] [address] [place] [address] PCP - General Family Medicine 04/05/22 Andree Ulloa PharmD [address] [place] [address] Pharmacist Internal Medicine 05/09/23 Jacquie Sarkar 05/20/25 06/03/25 Jacquie Sarkar 06/10/25 06/15/25 Flavia Segundo Chief Transfer And Pumphouse OperatorMarket Research Executive 10/10/23 Gabrielle Fitch Chief Transfer And Pumphouse OperatorMarket Research Executive 11/05/24 [employer] 02/06/25 documented as of this encounter
--- OUTSIDE RECORDS SUMMARY | 2025-10-13 15:09 | XMS_ITS | Clinical Summary ---
Author Organization [employer] Address [address] [facility] [address] [place] [address] Care Team Providers Care Grounds Keeper Name Role Phone Ana Davis CONGRESSIONAL REPRESENTATIVE Primary Care Provider [phone] Andree Ulloa PharmD Unavailable [phone] Allergies Active Allergy Reactions Criticality Noted Date Comments Penicillin G 01/30/2023 Penicillins Unknown 12/05/2010 Medications * This document contains information received from the source organization and may not represent a complete record from that organization. Insulin Pen Needle (pen needle 01/03 ) 31G x 5 mm misc Inject under the skin if needed. Use as directed twice daily Active Blood Pressure Monitor kitIndications:Hy pertension, unspecified type Use to check blood pressure daily 1 kit 023 Active Blood Glucose Monitoring Suppl (D-Care Glucometer) w/Device kitIndications:Ty pe 2 diabetes mellitus with hyperglycemia, with long-term current use of insulin (HCC),Cirrhosis of liver with ascites, unspecified hepatic cirrhosis type (HCC) Use as directed to check BS four times daily 1 kit 024 Active pen needle 32G x 4 mm miscIndications:T ype 2 diabetes mellitus without complication, with long-term current use of insulin (HCC) Use as instructed 100 each 12 025 2025 Active Lancets miscIndications:T ype 2 diabetes mellitus without complication, with long-term current use of insulin (HCC) Check blood sugar three times daily 150 each 3 025 Active Alcohol Swabs (Alcohol Prep) padsIndications:T ype 2 diabetes mellitus without complication, with long-term current use of insulin (HCC) Use as directed 150 each Active glucose blood test stripIndications: Type 2 diabetes mellitus without complication, with long-term current use of insulin ([facility]) Use as directed to check blood sugar three times daily 100 each Active Blood Glucose Monitoring Suppl deviceIndications :Type 2 diabetes mellitus without complication, with long-term current use of insulin ([facility]) Use as directed to check blood sugar three times daily 1 each Active ferrous gluconate (Fergon) 324 (38 Fe) MG tabletIndications :Anemia, unspecified type Take 1 tablet (324 mg) by mouth with breakfast. 30 tablet 2025 Active lurasidone (Latuda) 80 MG tabletIndications :Schizophrenia, unspecified type (HCC) Take 1 tablet (80 mg) by mouth in the evening. 30 tablet Active naproxen (Naprosyn) 500 MG tablet Take 1 tablet (500 mg) by mouth 2 times daily. 60 tablet 2024 Active acetaminophen (Tylenol) 500 MG tablet Take 1 tablet (500 mg) by mouth every 6 (six) hours if needed for moderate pain. 30 tablet 1 Active benztropine (Cogentin) 0.5 MG tabletIndications :Schizophrenia, unspecified type (HCC) Take 1 tablet (0.5 mg) by mouth at bedtime. 30 tablet 1 Active furosemide (Lasix) 40 MG tabletIndications :Cirrhosis of liver with ascites, unspecified hepatic cirrhosis type (HCC) Take 1 tablet (40 mg) by mouth Once per day. 30 tablet 11 Active glucagon (Baqsimi Two Pack) 3 MG/DOSE nasal powderIndications :Type 2 diabetes mellitus without complication, with long-term current use of insulin ([facility]) Administer 3 mg via 1 device into the nostril for hypoglycemia with loss of consciousness. If no response after 15 minutes administer an additional dose via 2nd device into other nostril. 2 each Active haloperidol (Haldol) 10 MG tabletIndications :Schizophrenia, unspecified type (HCC) Take 0.5 tablets (5 mg) by mouth Once per day AND 1 tablet (10 mg) at bedtime. 45 tablet 025 2024 Active insulin lispro (HumaLOG KWIKPEN) 100 UNIT/ML injectionIndicati ons:Type 2 diabetes mellitus without complication, with long-term current use of insulin (HCC) Follow sliding scale as instructed: Before meals. Range 0 - 12 unit per sliding scale. 15 mL 1 Active spironolactone (Aldactone) 50 MG tablet Take 1 tablet (50 mg) by mouth Once per day. 30 tablet 1 Active insulin glargine (Lantus SoloStar) 100 UNIT/ML penIndications:Ty pe 2 diabetes mellitus with hyperglycemia, with long-term current use of insulin (HCC) Inject 34 Units under the skin at bedtime. 15 mL 1 025 2025 Active lactulose (Chronulac) 10 GM/15ML solutionIndicatio ns:Liver cirrhosis secondary to nonalcoholic steatohepatitis (QURESHI) (HCC) Take 30mL by oral route as needed to produce 2-3 loose bowel movements daily 946 mL 3 Active acetaminophen (Tylenol) 500 MG tablet Take 1 tablet by mouth every 6 (six) hours if needed. 016 2024 Discontinued( Reorder (will not trigger notification to Pharmacy)) glucagon (Baqsimi Two Pack) 3 MG/DOSE nasal powderIndications :Type 2 diabetes mellitus without complication, with long-term current use of insulin (HCC) Administer 3 mg via 1 device into the nostril for hypoglycemia with loss of consciousness. If no response after 15 minutes administer an additional dose via 2nd device into other nostril. 2 each 1 023 2024 Discontinued( Reorder (will not trigger notification to Pharmacy)) carvedilol (Coreg) 3.125 MG tabletIndications :Cirrhosis of liver with ascites, unspecified hepatic cirrhosis type (HCC) Take 1 tablet (3.125 mg) by mouth 2 times daily. 60 tablet 11 025 2024 Discontinued( Therapy completed) furosemide (Lasix) 40 MG tabletIndications :Cirrhosis of liver with ascites, unspecified hepatic cirrhosis type (HCC) Take 1 tablet (40 mg) by mouth Once per day. 30 tablet 11 2024 Discontinued( Reorder (will not trigger notification to Pharmacy)) lactulose (Chronulac) 10 GM/15ML solutionIndicatio ns:Cirrhosis of liver with ascites, unspecified hepatic cirrhosis type (HCC) Take 30 mL (20 g) by mouth 3 times daily. 946 mL 3 025 2024 Discontinued( Reorder (will not trigger notification to Pharmacy)) spironolactone (Aldactone) 50 MG tablet Take 50 mg by mouth Once per day. 2024 Discontinued( Reorder (will not trigger notification to Pharmacy)) insulin lispro (HumaLOG KWIKPEN) 100 UNIT/ML injectionIndicati ons:Type 2 diabetes mellitus without complication, with long-term current use of insulin ([facility]) Inject 5 Units under the skin with breakfast and with evening meal. 15 mL 1 025 2024 Discontinued( Reorder (will not trigger notification to Pharmacy)) insulin degludec (Tresiba FlexTouch) 200 UNIT/ML injectionIndicati ons:Type 2 diabetes mellitus without complication, with long-term current use of insulin ([facility]) INJECT 58 UNITS SUBCUTANEOUSLY EVERY EVENING 9 mL 1 2024 Discontinued( Reorder (will not trigger notification to Pharmacy)) haloperidol (Haldol) 10 MG tabletIndications :Schizophrenia, unspecified type (HCC) Take 1 tablet (10 mg) by mouth 2 times daily. 60 tablet 1 2024 Discontinued( Reorder (will not trigger notification to Pharmacy)) benztropine (Cogentin) 0.5 MG tabletIndications :Schizophrenia, unspecified type (HCC) Take 1 tablet (0.5 mg) by mouth at bedtime. 30 tablet 1 2024 Discontinued( Reorder (will not trigger notification to Pharmacy)) doxycycline (Doryx) 100 MG EC tablet Take 100 mg by mouth 2 times daily. Do not crush or chew. Take with a full glass of water and do not lie down for at least 30 minutes after. 2024 Discontinued( Therapy completed) cefuroxime (Ceftin) 500 MG tablet Take 500 mg by mouth 2 times daily. 2024 Discontinued( Therapy completed) insulin degludec (Tresiba FlexTouch) 200 UNIT/ML injectionIndicati ons:Type 2 diabetes mellitus without complication, with long-term current use of insulin (HCC) INJECT 58 UNITS SUBCUTANEOUSLY EVERY EVENING 9 mL 1 025 2024 Discontinued lactulose (Chronulac) 10 GM/15ML solutionIndicatio ns:Cirrhosis of liver with ascites, unspecified hepatic cirrhosis type (HCC) Take 30 mL (20 g) by mouth 3 times daily. 946 mL 3 025 2024 Discontinued( Reorder (will not trigger notification to Pharmacy)) fosfomycin (Monurol) 3 g packet Take 3 g by mouth 1 (one) time for 1 dose. 3 g 025 2024 Active Problems Problem Noted Date Diagnosed Date Chronic kidney disease 06/15/2024 Gait instability 03/10/2023 Overview (03/10/2023): Referred to PT 11/2022 for gait assistance evaluation Internal carotid artery stenosis, bilateral 02/19 Hyponatremia 03/10/2023 Healthcare maintenance 12/03/2022 Overview (03/10/2023): Mammo: Ordered 11/2022 Pap: Unknown. Referred to [facility] 11/2022 for PMB. Ultrasound pending C-scope: 2019, precancerous polyps Cirrhosis of liver (CMS/HCC) 04/21/2018 Overview (09/09/2023): Decompensated QURESHI cirrhosis MELD-Na: 16. Followed by [facility]. Paracentesis q. 2 weeks. EGD 2019 with grade II varices. Colonoscopy 2019 with polyps removed. Tubular adenoma present. Lactulose 2-3x/day for hepatic encephalopathy with goal 2-3 BM's per day. On propranolol 30mg b.I.d for varices. Lasix 100mg daily and sironolactione 150mg for ascites. Assessment & Plan (09/17/2025 10:36 AM EST): Orders: furosemide (Lasix) 40 MG tablet; [...] 5:20 PM EDT): I left message with [facility] requesting provider-provider consult given severity of [...] plan. I will reach out directly to [facility] for update and recommend patient placemen ton transplant list. Patient needs care management CORRINE. Will refer again today. Plan to have extended follow up visit with patient, daughter, and care mngmt present for advanced care planning. Morbid obesity ([facility]) 04/21/2018 Osteoarthritis of multiple joints 04/21/2018 Schizophrenia 04/21/2018 Overview (03/10/2023): Schizophrenia c/b tardive dyskinesia. On haldol 5mg daily. Benztropine 0.5mg b.I.d for sx mngmt. Needs new psychiatrist. On wait list at [facility] in [place]. Referred to [facility] psychopharm clinic 11/2022 Assessment & Plan (09/17/2025 10:36 AM EST): Orders: benztropine (Cogentin) 0.5 MG tablet; [...] from psych provider. Catherine was referred to [facility] on 03/31. Information given to patient with [facility] contact number to request intake for psychotherapy and psychiatry services. During today's consult, Catherine was engaged with active, reflective listening. Reviewed and assessed for risk, current stressors and triggers using open-ended questions. Pt agreed with plan to contact [facility] and will update clinician if extra support is needed for services. PLAN: (check all that apply) Continue with current services (defined as services in the past 12 months) . Pt was referred to [facility] on 03/31. clinician provided information and printed out letter with [facility] contact numbers. clinician will be available if requested during next consult. Assessment & Plan (02/12/2024 9:53 AM EDT): PLAN: (check all that apply) New/Additional Services needed Off-site services for Behavioral Health Integration Plan External OP therapy referral and OP psychiatry Referral Patient Self Plan Patient to reach out to [facility] team as needed, Comply with medication , [...] 3-Significant loss of protective sensation. Eye Exam:Pending [facility] referral Lipid panel: 11/2022 ASCVD: 6.7% [...] Plan (09/09/2023 4:10 PM EST): POC BS [facility] s/p 10 units lispro in [...] sliding scale as prescribed STAT referral to [facility] DM educator Lab Results Component Value [...] Encounters Date Type Department Care Team Description 09/23/[address] [facility] Durable Medical Equipment (DME: Pull-ups) 09/23/[address] [address] Sherine Santoro, MARQUITA 09/21/[address] [phone] Lucinda Clark, MARQUITA vna communication 09/20/2025 10:00 AM EST Office Visit [address] [address] Ana Davis FNP Type 2 diabetes mellitus with hyperglycemia, with long-term current use of insulin (HCC) (Primary Dx); Liver cirrhosis secondary to nonalcoholic steatohepatitis (QURESHI) (HCC); Lung mass; Pancytopenia (HCC); Cystitis; Schizophrenia, unspecified type (HCC); Urinary incontinence, unspecified type 09/20/2025 Orders Only [facility] [address] [place] [id number] [facility] Cirrhosis of liver without ascites, unspecified hepatic cirrhosis type (HCC) (Primary Dx) 09/20/2025 Travel 09/20/[address] [address] Ana Davis FNP Lab Orders (And medication instructions) 09/17/2025 Orders Only [address] [address] Tyler Jones FNP Acute cystitis with hematuria (Primary Dx) 09/15/2025 10:00 AM EST Office Visit [address] [address] Tyler Jones FNP Acute cystitis without hematuria (Primary Dx); Type 2 diabetes mellitus without complication, with long-term current use of insulin (HCC); Vision disorder; Acute bilateral low back pain without sciatica; Hepatic encephalopathy (CMS/HCC) (HCC); Abnormal CT scan of lung; Schizophrenia, unspecified type (HCC); Cirrhosis of liver with ascites, unspecified hepatic cirrhosis type (HCC); Acute cystitis with hematuria 09/15/[address] [address] Ana Davis FNP chart prep 09/15/[address] [address] Ana Davis FNP 09/15/[address] [address] Tyler Jones FNP Hospital Follow-up 09/15/2025 Travel 09/14/[address] [address] Ana Davis FNP Chart Prep 09/07/[address] [address] Nettie Garcia MD No Show 09/07/2025 Patient Outreach [address] [address] Ana Davis FNP Pre-visit Planning ((Unable to reach for PVP screening, LVM) to be completed in office ) 09/06/[address] [address] Ana Davis FNP Chart Prep 08/27/2025 Orders Only [facility] External Provider, [facility] 08/27/2025 Patient Outreach [facility] [address] [place], [place] [phone] Ana Davis FNP Transition Of Care (Tcm) (HDF scheduled. ) 08/03/2025 Telephone [facility] OPTOMET[facility] [address] [place] [address] Elisabeth Melchor, SHANEKA 07/16/2025 Telephone [facility] [address] [place] [address] Ana Davis FNP No Show 07/16/2025 Orders Only GENERIC EXTERNAL DATA DEPARTMENT Provider, Generic External Data 07/15/2025 Telephone [facility] [address] [place], [place] [phone] Ana Davis FNP chart prep 07/14/2025 Telephone [facility] [address] [facility] [place] [address] Ana Davis FNP from Last 3 Months [...] Date Recorded Patient Health Questionnaire-9 Score 0 09/20/2025 Patient Health Questionnaire-9 Score 0 09/20/2025 Last PHQ-9: Questionnaire Data Not on file 1 11/21/2024 Housing Stability Answer Date Recorded What is your housing situation today? I have kimani kline 09/20/[address] you li ve. Do you have problems with any of the following? None of the above 09/20/2025 Food Insecurity Answer Date Recorded Within the past 12 months, y ou worried that your food would run out before you got money to buy more: Never True 09/20/2025 Within the past 12 months,th e food you bought just didn't last and you didn't have enough money to get more: Never True 10/2024 Transportation Answer Date Recorded In the past 12 months, has l ack of transportation kept you from medical appts, meetings, work or from getting things needed for daily living? No 09/20/2025 Utilities Answer Date Recorded In the past 12 months, has t he electric, gas, oil or water company threatened to shut off services in your home? No 09/20/2025 Depression Answer Date Recorded Patient Health Questionnaire-2 Score 0 09/20/2025 Internet Access Answer Date Recorded Internet Access Q1 Yes 09/20/2025 Internet Access Q2 Not on file 09/20/2025 Comments No Sex and Gender Information Value Date Recorded Sex Assigned at Female 08/20/2022 10:14 AM EDT Legal Sex Female 10:14 AM EDT Gender Identity Female 08/20/2022 10:14 AM EDT Sexual Orientation Straight 08/20/2022 10 :14 AM EDT Last Filed Vital Signs Vital Sign Reading Time Taken Comments Blood Pressure 110/62 09/20/2025 10:14 AM EST Pulse 84 09/20/2025 10:14 AM EST Temperature 35.9 C (96.7 F) 09/20/2025 10:14 AM EST Respiratory Rate 20 09/20/2025 10:14 AM EST Oxygen Saturation 99% 09/15/2025 10:27 AM EST Inhaled Oxygen Concentration - - Weight 87.7 kg (193 lb 6.4 oz) 09/20/2025 10:14 AM EST Height 157.5 cm (5' 2 ) 09/20/2025 10:14 AM EST Body Mass Index 35.37 09/20/2025 10:14 AM EST Plan of Treatment Upcoming Encounters Date Type Department Care Team (Late st Contact Info) Description 10/18/2025 10:30 AM EST Medication Management [facility] [address] [place] [address] Harrison Salazar, PharmD [address] [place] [address] 10/27/2025 11:30 AM EST Office Visit [facility] [address] [place] [address] [place], Ana, CONGRESSIONAL REPRESENTATIVE [address] [place] [address] Health Maintenance Due Date Last Done Comments [...] 02/10/2024, 02/10/2024, Additional history exists COVID-19 Vaccine (2024- season) 2025 Influenza Vaccine (#1) 2025 , 08/31/2024, 09/02/2023, Additional history exists Lipid Panel 08/31/2025 08/31/2024, 11/21, 05/21/2022 Diabetes: Hemoglobin A1C 12/16/202509/15/2 025, 02/12/2025, 08/31/2024, Additional history exists Alcohol/Substance Use Screening 09/15/2026 09/15/2025 Disability Screening 09/15/2026 09/15/2025 Depression Screening 09/20/2026 09/20/2025, 09/20/20 SDOH Screening 09/20/2026 09/20/2025 Tobacco Screening 09/21/2026 09/21/2025 DTaP/Tdap/Td Vaccines (3 - Td or Tdap) [...] your blood sugar as directed General On track(2022 4:12 PM EDT) No Jacob Llanos PharmD Note: Use CGM, ensuring sensor is scanned at least once every 8 hours to capture 24H data. Check BG manually, as directed. Take your medications every day Lifestyle Worsening( 4:12 PM EDT) No Jacob Llanos PharmD Hemoglobin A1c < 8 Result Component 7.7(09/15/20 10:33 AM EST) No Andree Ulloa PharmD Help patients manage their type 2 diabetes Care Plan Help patients manage their type 2 diabetes No Kirstie Brink PharmD Weekly blood pressure task Care Plan Weekly blood pressure task No Kirstie Brink PharmD Help patients manage their type 2 diabetes Care Plan Help patients manage their type 2 diabetes No Kirstie Brink PharmD Patient has chronic kidney disease Care Plan Patient has chronic kidney disease No Kirstie Brink PharmD Weekly blood pressure task Care Plan Weekly blood pressure task No Kirstie Brink PharmD Patient has chronic kidney disease Care Plan Patient has chronic kidney disease No Kirstie Brink PharmD Weekly blood pressure task Care Plan [...] Care Plan Weekly blood pressure task No Tyler Jones FNP Weekly blood pressure task Care Plan Weekly blood pressure task No Tyler Jones FNP Patient has chronic kidney disease Care Plan Patient has chronic kidney disease No Tyler Jones FNP Patient has chronic kidney disease Care Plan Patient has chronic kidney disease No Tyler Jones FNP Weekly blood pressure task Care Plan Weekly blood pressure task No Ana Davis FNP Weekly blood pressure task Care Plan Weekly blood pressure task No [place] [facility] Patient has chronic kidney disease Care Plan Patient has chronic kidney disease No OcalaAna FNP Patient has chronic kidney disease Care Plan Patient has chronic kidney disease No [place]cala[place] levy FNP Weekly blood pressure task Care Plan Weekly blood pressure task No Ricardo Norton MA Weekly blood pressure task Care Plan Weekly blood pressure task No Ricardo Norton [place] Patient has chronic kidney disease Care Plan Patient has chronic kidney disease No Ricardo Norton [place] Patient has chronic kidney disease Care Plan Patient has chronic kidney disease No Ricardo Norton MA Weekly blood pressure task Care Plan Weekly blood pressure task No Liat Álvarez Weekly blood pressure task Care Plan Weekly blood pressure task No Lita Álvarez Patient has chronic kidney disease Care Plan Patient has chronic kidney disease No Lita Álvarez Patient has chronic kidney disease Care Plan Patient has chronic kidney disease No Lita Álvarez Weekly blood pressure task Care Plan Weekly blood pressure task No [place] CONGRESSIONAL REPRESENTATIVE Weekly blood pressure task Care Plan Weekly blood pressure task No [facility] Patient has chronic kidney disease Care Plan Patient has chronic kidney disease No [facility] Patient has chronic kidney disease Care Plan Patient has chronic kidney disease No [place] CONGRESSIONAL REPRESENTATIVE Weekly blood pressure task Care Plan Weekly blood pressure task No Donya Huertas Weekly blood pressure task Care Plan Weekly blood pressure task No Donya Huertas Patient has chronic kidney disease Care Plan Patient has chronic kidney disease No Donya Huertas Patient has chronic kidney disease Care Plan Patient has chronic kidney disease No Donya uHertas Weekly blood pressure task Care Plan Weekly blood pressure task No Lucinda Clark RN Weekly blood pressure task Care Plan Weekly blood pressure task No Lucinda Clark RN Patient has chronic kidney disease Care Plan Patient has chronic kidney disease No Lucinda Clark RN Patient has chronic kidney disease Care Plan Patient has chronic kidney disease No Lucinda Clark RN Weekly blood pressure task Care Plan Weekly blood pressure task No Sherine Santoro RN Weekly blood pressure task Care Plan Weekly blood pressure task No Sherine Santoro RN Patient has chronic kidney disease Care Plan Patient has chronic kidney disease No Sherine Santoro RN Patient has chronic kidney disease Care Plan Patient has chronic kidney disease No Sherine Santoro, MARQUITA Weekly blood pressure task Care Plan Weekly blood pressure task No Shelley Batista Weekly blood pressure task Care Plan Weekly blood pressure task No Shelley Batista Patient has chronic kidney disease Care Plan Patient has chronic kidney disease No Shelley Batista Patient has chronic kidney disease Care Plan Patient has chronic kidney disease No Shelley Batista Weekly blood pressure task Care Plan Weekly blood pressure task No Harrison Salazar, PharmFelicita Weekly blood pressure task Care Plan Weekly blood pressure task No Harrison Salazar PharmD Patient has chronic kidney disease Care Plan Patient has chronic kidney disease No Harrison Salazar PharmD Patient has chronic kidney disease Care Plan Patient has chronic kidney disease No Harrison Salazar PharmD Procedures Procedure Name Priority Date/Time Associated Diagnosis Comments POCT GLUCOSE (CPT-14820) Routine 09/20/2025 10:16 AM EST Type 2 diabetes mellitus with hyperglycemia, with long-term current use of insulin (HCC) CULTURE, URINE, ROUTINE Routine 09/15/2025 11:01 AM EST Acute cystitis without hematuria POCT URINALYSIS DIPSTICK Routine 09/15/2025 11:00 AM EST Acute cystitis without hematuria POCT GLYCATED HEMOGLOBIN, TOTAL Routine 09/15/2025 10:33 AM EST Type 2 diabetes mellitus without complication, with long-term current use of insulin (HCC) POCT GLUCOSE (CPT-54088) Routine 09/15/2025 10:32 AM EST Type 2 [...] 5:08 PM EST HEPATIC FUNCTION PANEL Routine 08/27/2025 5:08 PM EST XR CHEST 1 VIEW Routine 08/27/2025 4:52 PM EST US ABDOMEN LIMITED Routine 07/16/2025 2: 00 PM EDT GLUCOSE, WHOLE BLOOD Routine 07/16/2025 1:33 PM EDT LIPID PANEL, STANDARD Routine 08/31/2024 11:55 [...] to Health Maintenance Results * (ABNORMAL) POCT Glucose (09/20/2025 10:16 AM EST) Only the most recent of2 resultswithin the time period is included. Glucose Blood, POC 343(A) 60 - 200 mg/dL Blood Capillary blood specimen / Unknown 09/20/2025 10:16 AM EST [facility] CONGRESSIONAL REPRESENTATIVE POINT OF CARE TEST ENTER/EDIT ORDERABLES Final Result * Culture, Urine, Routine (09/15/2025 11:01 AM EST) Urine Urine specimen obtained by clean catch procedure / Unknown 09/15/2025 11:01 AM EST 09/15/2025 1:36 PM EST Comment:[facility] Narrative [facility] - 09/16/2025 1:44 PM EST Urine Culture Report Result Urine Culture > 100,000 cfu/ml Urine Culture Mixed bacterial juice characteristic of Urine Culture urogenital contamination. Specimen Source: Urine clean catch [facility] MICROBIOLOGY - GENERAL OR DERABLES Final Result [facility] [address] [place] [phone] * (ABNORMAL) POCT Urinalysis (09/15/2025 11:00 AM [...] Urine (Urine, Random) 09/15/2025 11:00 AM EST [facility] POINT OF CARE TEST ENTER/EDIT ORDERABLES Final Result * (ABNORMAL) POCT Hgb A1c (09/15/2025 10:33 AM EST) Hemoglobin A1C 7.7(A) 4.0 - 5.7 % QC Media Lot # [id number] Lot# Expiration Date 256, Blood 09/15/2025 10:3 3 AM EST [facility] POINT OF CARE TEST ENTER/EDIT ORDERABLES Final Result * CT Abdomen Pelvis w/o Contrast (08/27/2025 10:57 PM EST) Anatomical Region Laterality Modality Body, Pelvis, Abdomen Computed T omography 08/27/2025 10:5 7 PM EST Narrative 08/27/2025 11:00 PM EST [address] [address] [address] Scan Report Signed Patient: Catherine Stern MR#: [id number] : 1960 Acct:[id number] Age/Sex: 65 / F ADM Date: 08/27/25 [facility]: Estelle Sandoval PA-C Ordering Physician: Estelle Sandoval PA-C Date of Service: 08/27/25 Procedure(s): CT abdomen pelvis wo IV con Accession Number(s): [id number] cc: Estelle Sandoval PA-C; [facility] Report Number: [id number]: Total DLP = 0.00 mGy-cm Reason for [...] signed by Yony Gooden MD in OV> 08/27/25 225 DD/ 56 TD/TT: 08/27/252256 Skiing Teacher: Procedure Note Donotradhainterpreter, Image - 08/27/[address] [place] [address] [address] Scan Report Signed Patient: Maki Stern#: [id number] : 1960cct:[id number] Age/Sex: 65 / FADM Date: 08/27/25 [facility]: Estelle Sandoval PA-C Ordering Physician: Estelle Sandoval PA-C Date of Service: 08/27/25 Procedure(s): CT abdomen pelvis wo IV con Accession Number(s): [id number] cc: Estelle Sandoval PA-C; [facility] Report Number: [id number]: Total DLP = 0.00 mGy-cm Reason for [...] in OV> 08/27/252258 DD/ 56 TD/TT: 08/27/252256 Skiing Teacher: [facility] External Provider IMG CT PROCEDURES Edited Result - Final * CTA Chest PE Protocal (08/27/2025 7:54 PM EST) Anatomical Region Laterality Modality Body, Chest Computed Tomogra phy 08/27/2025 7:54 PM EST Narrative 08/27/2025 7:55 PM EST [place] [address] CT Scan Report Signed Patient: Catherine Stern MR#: [id number] : 1960 Acct:[id number] Age/Sex: 65 / F ADM Date: 08/27/25 Loc: .ED Attending Dr: Ordering Physician: Charlene More MD Date of Service: 08/27/25 Procedure(s): CT angio chest PE protocol Accession Number(s): [id number] cc: Charlene More MD; [facility] Report Number: [id number]: Total DLP = 552.00 mGy-cm Reason for [...] in OV> 08/27/251954 DD/ 53 TD/TT: 08/27/251953 Skiing Teacher: Procedure Note Donotuseinterpreter, Image - 08/27/[address] [place] [address] [address] Scan Report Signed Patient: Maki Stern#: [id number] : 1960cct:[id number] Age/Sex: 65 / FADM Date: 08/27/25 Loc: .ED Attending Dr: Ordering Physician: Charlene More MD Date of Service: 08/27/25 Procedure(s): CT angio chest PE protocol Accession Number(s): [id number] cc: Charlene More MD; [facility] Report Number: [id number]: Total DLP = 552.00 mGy-cm Reason for [...] in OV> 08/27/251954 DD/ 53 TD/TT: 08/27/251953 Skiing Teacher: [facility] External Provider IMG CT PROCEDURES Edited Result - Final * High Sensitivity Troponin I (08/27/2025 5:08 PM EST) [facility] TROPONIN I HIGH SENSITIVITY 3.3 <3.5 - 17.0 ng/L [facility] Comment:The [place] high sens itivity Troponin-I results should beused in conjunction with other diagnostic information suchas ECG, clinical observations and information, and patientsymptoms to aid in the diagnosis of [place]. 08/27/2025 5:08 PM EST 08/27/2025 5:11 PM EST Generic External Data Provider LAB BLOOD ORDERAB LES Final Result [facility] [address] [place] [phone] * NT-proBNP (08/27/2025 5:08 PM EST) Pathologist [facility] NT-proBNP 56.3 <300 pg/mL [facility] Comment:Reference Range:Age Group (years) NT-proBNP (pg/ml) InterpretationAll <300 Negative: HF unlikelyFor patients presenting to the ED with clinical suspicion ofnew onset or worsening HF, see below:18 to <50 >299.9 to <450.0 Grayzone: [id number] to 75 >299.9 to <900.0 other causes of>75 >299.9 to <1800.0 NT-proBNP [id number] to <50 >449.9 Positive: HF [id number] >899.9>75 >1799.9Note: Elevated NT-proBNP levels should be interpreted inthe context of other clinical information. 08/27/2025 5:08 PM EST 08/27/2025 5:11 PM EST us Generic External Data Provider LAB BLOOD ORDERAB LES Final Result [facility] [address] [place] [phone] * (ABNORMAL) CBC auto differential (08/27/2025 5:08 PM EST) White Blood Count 2.9(L) 4.8 - 10.8 X10*3/uL [facility] Red Blood Count 2.90(L) 4.20 - 5.50 X10*6/uL [facility] Hemoglobin 8.9(L) 12.0 - 16.0 g/dl [facility] Hematocrit 26.0(L) 37.0 - 47.0 % [facility] Mean Corpuscular Volume 89.7 80.0 - 98.0 fL [facility] Mean Corpuscular Hemoglobin 30.7 27.0 - 33.0 pg [facility] Mean Corpuscular HGB Conc 34.2 31.0 - 35.0 g/dl [facility] Red Cell Distribution Width 14.4 11.0 - 16.0 % [facility] Platelet Count 20(LL) 160 - 400 X10*3/uL [facility] Comment:Results of PLTS call ed to and read back by 08/27/25 at 1736 by DIANN. Mean Platelet Volume 11.1 9.4 - 12.3 fL [facility] Neutrophils Percent Auto 66.1 45 - 73 % [facility] Imm Gran Pct Auto 0.7(H) 0.0 - 0.4 % [facility] Lymphocytes Percent Auto 15.4(L) 20 - 40 % [facility] Monocytes Percent Auto 10.5 2 - 11 % [facility] Eosinophils Percent Auto 7.0(H) 0 - 4 % [facility] Basophils Percent Auto 0.3 0 - 2 % [facility] NRBC Pct Auto 0.0 0.0 - 0.2 /100WBC [facility] Neutrophils Absolute Auto 1.9(L) 2.0 - 8.3 x10*3/uL [facility] Imm Gran Abs Auto 0.02 0.00 - 0.03 X10*3/uL [facility] Lymphocytes Absolute Auto 0.4(L) 1.2 - 4.9 X10*3/uL [facility] Monocytes Absolute Auto 0.3 0.1 - 1.2 X10*3/uL [facility] Eosinophils Absolute Auto 0.2 0.0 - 0.4 X10*3/uL [facility] Basophils Absolute Auto 0.0 0.0 - 0.2 X10*3/uL [facility] NRBC Abs Auto 0.000 0.0 - 0.012 X10*3/uL [facility] 08/27/2025 5:08 PM EST 08/27/2025 5:11 PM EST us Generic External Data Provider LAB BLOOD ORDERAB LES Final Result [facility] [address] [place] [phone] * Lipase (08/27/2025 5:08 PM EST) Lipase 27 8 - 78 U/L [facility] 08/27/2025 5:08 PM EST 08/27/2025 5:11 PM EST Generic External Data Provider LAB BLOOD ORDERAB LES Final Result Performing Organization Address [facility] Co de Phone Number [facility] [address] [place] [phone] * (ABNORMAL) Hepatic Function Panel (08/27/2025 5:08 PM EST) Bilirubin, Total 0.7 0.0 - 1.0 mg/dL [facility] Bilirubin, Direct 0.2 0.0 - 0.5 mg/dL [facility] Aspartate Amino Transferase 37(H) 5 - 31 U/L [facility] Comment:Slight Hemolysis.Int erpret result with caution. Alanine Aminotransferase 24 0 - 31 U/L [facility] Total Protein 6.2(L) 6.5 - 8.0 g/dL [facility] Albumin Level 2.9(L) 3.5 - 5.0 g/dL [facility] Alkaline Phosphatase 145(H) 39 - 117 U/L [facility] 08/27/2025 5:08 PM EST 08/27/2025 5:11 PM EST us Generic External Data Provider LAB BLOOD ORDERAB LES Final Result Performing Organization Address [facility] de Phone Number [facility] [address] [place] [phone] * (ABNORMAL) Basic Metabolic Panel (08/27/2025 5:08 PM EST) Sodium 135 135 - 145 mmol/L [facility] Potassium 4.5 3.3 - 5.1 mmol/L [facility] Comment:Slight Hemolysis.Int erpret result with caution. Chloride 111(H) 96 - 108 mmol/L [facility] Carbon Dioxide 19(L) 22 - 29 mmol/L [facility] Anion Gap 10(L) 12 - 20 [facility] Urea Nitrogen (BUN) 34(H) 9 - 16 mg/dL [facility] Creatinine, Serum 1.11 0.5 - 1.4 mg/dL [facility] Creatinine Clr Calc Pharmacy 53.3 [facility] Comment:Provided height and weight: 157.48 cm,89.7 kg.eGFR (calculated from the MDRD study equation) and eCrCl(calculated from the Cockcroft-Gault equation) are based ondifferent parameters and may not yield comparable results.If eCrCl result is absurd, please check patient'sheight/weight. Estimated Glomerular Filt Rate 49 [facility] Comment:Chronic Kidney Disea se: Estimated GFR < 60 mL/min/1.19v8Dzksmz Kidney Disease: Estimated GFR < 15 mL/min/1.73m2 Glucose 145(H) 60 - 115 mg/dL [facility] Calcium 8.3(L) 8.4 - 10.2 mg/dL [facility] 08/27/2025 5:08 PM EST 08/27/2025 5:11 PM EST us Generic External Data Provider LAB BLOOD ORDERAB LES Final Result Performing Organization Address City/State/[facility] Co de Phone Number [facility] [address] [place] [phone] * XR Chest 1 View (08/27/2025 4:52 PM EST) Anatomical Region Laterality Modality Chest Radiographic Amelia ging 08/27/2025 4:52 PM EST Narrative 08/27/2025 5:02 PM EST [address] [address] XRay Report Signed Patient: Catherine Stern MR#: [id number] : 1960 Acct:[id number] Age/Sex: 65 / F ADM Date: 08/27/25 Loc: HO.ED Attending Dr: Ordering Physician: Charlene More MD Date of Service: 08/27/25 Procedure(s): XR chest 1V Accession Number(s): [id number] cc: Charlene More MD; [facility] Reason for Exam: cp EXAMINATION: XR CHEST [...] by: John Arciniega MD 08/27/2025 05:00 PM [facility] Dictated By: John Arciniega MD Signed By: <Electronically signed by John Arciniega MD in OV> 08/27/25 1700 DD/ 1652 TD/TT: 08/27/25 1655 Skiing Teacher: Procedure Note Donotuseinterpreter, Image - 08/27/[address] [address] XRay Report Signed Patient: Maki Stern#: [id number] : 1960cct:[id number] Age/Sex: 65 / FADM Date: 08/27/25 Loc: .ED Attending Dr: Ordering Physician: Charlene More MD Date of Service: 08/27/25 Procedure(s): XR chest 1V Accession Number(s): [id number] cc: Charlene More MD; [facility] Reason for Exam: cp EXAMINATION: XR CHEST [...] John Arciniega MD 08/27/2025 05:00 PM EST RP Dictated By: John Arciniega MD Signed By: <Electronically signed by John Arciniega MD in OV> 08/27/25 1700 DD/ 1652 TD/TT: 08/27/25 1655 Skiing Teacher: us [facility] External Provider IMG XR PROCEDURES Final Result * US Abdomen Limited (07/16/2025 2:00 PM EDT) Anatomical Region Laterality Modality Abdomen Ultrasound 07/16/2025 2:00 PM EDT Narrative 06/11/2025 8:40 AM EDT [place] [address] Ultrasound Report Signed Patient: Catherine Stern MR#: [id number] : 1960 Acct:[id number] Age/Sex: 64 / F ADM Date: 07/16/25 Loc: [facility] Attending Dr: Tono Nicole MD Ordering Physician: Mallorie Watson NP Date of Service: 07/16/25 Procedure(s): US abdomen limited Accession Number(s): [id number] cc: Mallorie Watson HAND FORMER; [facility] Reason for Exam: ASCITES EXAMINATION: US ABDOMEN [...] 07/16/25 1420 DD/ 1400 TD/TT: 07/16/25 1417 Skiing Teacher: Procedure Note Donotuseinterpreter, Image - 07/16/[address] [address] Ultrasound Report Signed Patient: Maki Stern#: [id number] : 1960cct:[id number] Age/Sex: 64 / FADM Date: 07/16/25 Loc: HO.SSS Attending Dr: Tono Nicole MD Ordering Physician: Mallorie Watson NP Date of Service: 07/16/25 Procedure(s): US abdomen limited Accession Number(s): [id number] cc: Mallorie Watson HAND FORMER; [facility] Reason for Exam: ASCITES EXAMINATION: US ABDOMEN [...] 07/16/25 1420 DD/ 1400 TD/TT: 07/16/25 1417 Skiing Teacher: us [facility] External Provider IMG US PROCEDURES Edited Result - Final * (ABNORMAL) Glucose, Whole Blood (07/16/2025 1:33 PM EDT) Glucose, Whole Blood 197(H) 60 - 115 mg/dL [facility] Comment:METER #: [id number] 07/16/2025 1:33 PM EDT 07/16/2025 1:36 PM EDT us Generic External Data Provider LAB BLOOD ORDERAB LES Final Result [facility] [address] [place] [phone] * Lipid Panel, Standard (08/31/2024 11:55 AM EST) Triglycerides 53 <150 mg/dL [facility] Comment:Desirable Triglyceri de: less than 150 mg/dLBorderline High Triglyceride 150-199 mg/dLHigh Triglyceride: 200-499 mg/dLVery High Triglyceride: greater than or equal to 5OO mg/dL Cholesterol 132 <200 mg/dL [facility] Comment:Desirable Cholestero l: less than 200 mg/dLBorderline High Cholesterol: 200-239 mg/dLHigh Cholesterol: greater than 239 mg/dL LDL Cholesterol Calculated 74 <100 mg/dL [facility] Comment:Desirable LDL: less than 100 mg/dLNear Optimal/Above Optimal LDL: 110- 129 mg/dLBorderline High LDL: 130-159 mg/dLHigh LDL: 160-189 mg/dLVery High LDL: greater than or equal to 190 mg/dL HDL Cholesterol 48 >40 mg/dL [facility] Comment:Desirable HDL: great er than 40 mg/dL Note: This HDL assay may give artificially low results in patients with liver disease. Blood Venous blood specimen / Unknown 08/31/2024 11:55 AM EST 08/31/2024 1:07 PM EST [facility] LAB BLOOD ORDERABLES Final Re sult [facility] [address] [place] [phone] * Hepatitis C Antibody with Reflex to HCV, RNA, Quantitative, Real-Time PCR (12/03/2022 11:57 AM EST) Hepatitis C Antibody NON-REACT LAURA NON-REACT LAURA [facility] Index 0.18 <1.00 [facility] Comment: HCV antibody was non-reactive. There is no laboratory evidence of HCV infection. In most cases, no further action is required. However, if recent HCV exposure is suspected, a test for HCV RNA (test code 93907) is suggested. For additional information please refer to http://[employer].Remerge/faq/CKS86b1 (This link is being provided for informational/ educational purposes only.) Blood Venous blood specimen / Unknown 12/03/2022 11:57 AM EST 12/03/2022 11:58 AM EST Narrative [facility] - 12/04/2022 2:01 AM EST FASTING:NO FASTING: NO [facility] LAB BLOOD ORDERABLES Final Re sult [facility] [address] [facility], [place] [address] [employer] [place] [facility] [address] [facility], ([address]) [place] [phone] * HIV-1/2 Antigen and Antibodies, Fourth Generation, with Reflexes (12/03/2022 11:57 AM EST) [facility] HIV Antigen/Antibody, 4th Generation NON-REAC TIVE NON-REAC TIVE [employer] [place] [facility] Comment: HIV-1 antigen and HIV-1/HIV-2 antibodies [...] purpose. For additional information please refer to http://[employer].Remerge/faq/CTA160 (This link is being provided for informational/ educational purposes only.) The performance of this assay has not been clinically validated in patients less than 2 years old. Blood Venous blood specimen / Unknown 12/03/2022 11:57 AM EST 12/03/2022 11:58 AM EST Narrative [facility] - 12/04/2022 2:01 AM EST FASTING:NO FASTING: NO [facility] CONGRESSIONAL REPRESENTATIVE LAB BLOOD ORDERABLES Final Re sult [facility] [address] [facility], [place] [address] [employer] [address], ([address]) [place] [address] * DIGITAL BILATERAL SCREEN 1 (08/17/2019 4:20 PM EDT) Anatomical Region Laterality Modality Breast Bilateral Mammography 08/17/2019 4:20 PM EDT Narrative 08/17/2019 4:22 PM EDT Refer to the Notes tab for result details [facility] Procedure: DIGITAL BILATERAL SCREEN 1 Procedure Note Provider, MD Paulo - 01/12/2023 Refer to the Notes tab for result details [facility] Procedure: DIGITAL BILATERAL SCREEN 1 Yash Arredondo CONGRESSIONAL REPRESENTATIVE IMG BI PROCEDURES Final Result from Last [...] kidney disease 09/15/2025 Weekly blood pressure task 09/17/2025 Weekly blood pressure task 09/17/2025 Patient has chronic kidney disease 09/17/2025 Patient has chronic kidney disease 09/17/2025 Weekly blood pressure task 09/19/2025 Weekly blood pressure task 09/19/2025 Patient has chronic kidney disease 09/19/2025 Patient has chronic kidney disease 09/19/2025 Weekly blood pressure task 09/20/2025 Weekly blood pressure task 09/20/2025 Patient has chronic kidney disease 09/20/2025 Patient has chronic kidney disease 09/20/2025 Weekly blood pressure task 09/20/2025 Weekly blood pressure task 09/20/2025 Patient has chronic kidney disease 09/20/2025 Patient has chronic kidney disease 09/20/2025 Weekly blood pressure task 09/20/2025 Weekly blood pressure task 09/20/2025 Patient has chronic kidney disease 09/20/2025 Patient has chronic kidney disease 09/20/2025 Weekly blood pressure task 09/21/2025 Weekly blood pressure task 09/21/2025 Patient has chronic kidney disease 09/21/2025 Patient has chronic kidney disease 09/21/2025 Weekly blood pressure task 09/21/2025 Weekly blood pressure task 09/21/2025 Patient has chronic kidney disease 09/21/2025 Patient has chronic kidney disease 09/21/2025 Weekly blood pressure task 09/23/2025 Weekly blood pressure task 09/23/2025 Patient has chronic kidney disease 09/23/2025 Patient has chronic kidney disease 09/23/2025 Weekly blood pressure task 09/23/2025 Weekly blood pressure task 09/23/2025 Patient has chronic kidney disease 09/23/2025 Patient has chronic kidney disease 09/23/2025 Weekly blood pressure task 10/12/2025 Weekly blood pressure task 10/12/2025 Patient has chronic kidney disease 10/12/2025 Patient has chronic kidney disease 10/12/2025 Insurance [facility] Care Teams Grounds Keeper Relationship Specialty Start Date End Date Ana Davis FNP [address] [place] [phone] PCP - General Family Medicine 04/05/22 Andree Ulloa PharmD [address] [place] [address] Pharmacist Internal Medicine 05/09/23 Flavia Segundo Trim MounterMast Maker 10/10/23 Gabrielle Fitch Trim MounterMast Maker 11/05/24 [employer] [employer] 02/06/25
--- OUTSIDE RECORDS SUMMARY | 2025-10-13 15:09 | XMS_ITS | Clinical Summary ---
Author Organization [facility] Address [address] [place] [address] Phone Care Team Providers Care Financial Legal Assistant Name Role Phone Yash Arredondo NP Primary Care Provider [phone] Allergies Active Allergy Reactions Criticality Noted Date [...] 03/14/2023 Cirrhosis of liver 04/21/2018 Overview (10/12/2024): Decompensated QURESHI cirrhosis MELD-Na: 16. Followed by [facility]. Paracentesis q. 2 weeks. EGD 2019 with grade II varices. Colonoscopy 2019 with polyps removed. Tubular adenoma present. Lactulose 2-3x/day for hepatic encephalopathy with goal 2-3 BM's per day. On propranolol 30mg b.I.d for varices. Lasix 100mg daily and sironolactione 150mg for ascites. Thrombocytopenia 04/21/2018 Surgical History Surgery Date Site/Laterality Comments OTHER SURGICAL HISTORY N/A PROCEDURE: [place] ABDOM PARACENTESIS DX/THER W/IMAGING GUIDANCE Medical History [...] Years Used Date Smoking Tobacco: Former Cigarettes [address] S tarted: 10/21/1979 Smokeless Tobacco: Never Alcohol [...] Orientation Straight 11/24/2024 7: 40 PM EST Last Filed Vital Signs Vital Sign Reading [...] Genao MD LAB BLOOD ORDERABLES Final Result [facility] [address] [place] [address], * Lipid panel with reflex to direct LDL (10/13/2024 5:24 AM EST) Cholesterol 125 0 - 200 mg/dL LAB CHEMISTRY METHOD 10/13/2024 6:43 AM EST [facility] Triglycerides 66 0 - 150 mg/dL LAB CHEMISTRY METHOD 10/13/2024 6:43 AM EST [facility] HDL 48 >=40 mg/dL LAB CHEMISTRY METHOD 10/13/2024 6:43 AM EST [facility] LDL Calculated 64 0 - 100 mg/dL LAB CHEMISTRY METHOD 10/13/2024 6:43 AM [facility] VLDL Cholesterol Luke 13.2 mg/dL LAB CHEMISTRY METHOD 10/13/2024 6:43 AM EST [facility] Non HDL Chol. [...] RODRIGUEZ LAB BLOOD ORDERABLES Fi nal Result [facility] [address] [place] [address], from Last 3 Months or Most Recently Relevant to Health Maintenance Insurance [place] Directives Documents on File Type Date Recorded Patient Director Of Channel Marketing Expl anation Health Care Decision (hx) 12/28/2023 [...] currently active code status orders. Care Teams Financial Legal Assistant Relationship Specialty Start Date End Date Yash Arredondo NP [address] [place] [address] PCP - General 09/15/13
--- OUTSIDE RECORDS SUMMARY | 2025-10-13 15:09 | XMS_ITS | Encounter Summary ---
Author Organization [employer] Address [address] 7t [place] [address] Care Team Providers Care Air Defense Control Officer Name Role Phone [facility] Primary Care Provider Andree Ulloa PharmD Unavailable [phone] Encounter Details Date Type Department Care Team ([facility] st Contact Info) Description 09/20/2025 Orders Only [facility] [address] [place], [place] [phone] [facility] 230 [place] [address] Cirrhosis of liver without ascites, unspecified hepatic cirrhosis type (HCC) (Primary Dx) Social History Tobacco Use Types [...] Description 10/18/2025 10:30 AM EST Medication Management [facility] [address] [place] [phone] Harrison Salazar, PharmD [address] [place] [address] 10/27/2025 11:30 AM EST Office Visit [facility] [address] [place] [address] [facility], [facility] 230 [place] [address] Scheduled Orders Name Type Priority Associated Diagnoses Orde r Schedule Comprehensive Metabolic Panel Lab STAT Cirrhosis of liver without ascites, unspecified hepatic cirrhosis type (HCC) Expected: 09/20/2025 (Approximate), Expires: 09/20/2026 CBC auto differential Lab STAT Cirrhosis of liver without ascites, unspecified hepatic cirrhosis type (HCC) Expected: 09/20/2025 (Approximate), Expires: 09/20/2026 documented as of this encounter Goals Goal [...] their type 2 diabetes No Kirstie Brink PharmFelicita Weekly blood pressure task Care Plan Weekly blood pressure task No Kirstie Brink PharmFelicita Help patients manage their type 2 diabetes Care Plan Help patients manage their type 2 diabetes No Kirstie Brink PharmD Patient has chronic kidney disease Care Plan Patient has chronic kidney disease No Kirstie Brink PharmD Weekly blood pressure task Care Plan Weekly blood pressure task No Kirstie Brink PharmFelicita Patient has chronic kidney disease Care Plan Patient has chronic kidney disease No Kirstie Brink PharmFelicita Weekly blood pressure task Care Plan [...] blood pressure task No Harrison Salazar PharmFelicita Patient has chronic kidney disease Care Plan Patient has chronic kidney disease No Harrison Salazar PharmFelicita Patient has chronic kidney disease Care [...] chronic kidney disease No Colon Lau, Yojana Weekly blood pressure [...] blood pressure task No Ana Davis FNP Patient has chronic kidney disease Care Plan Patient has chronic kidney disease No Ana Davis FNP Patient has chronic kidney disease Care Plan Patient has chronic kidney disease No Ana Davis FNP Weekly blood pressure task Care Plan Weekly blood pressure task No Ricardo Norton MA Weekly blood pressure task Care Plan Weekly blood pressure task No NortonRicardo [place] Patient has chronic kidney disease Care Plan Patient has chronic kidney disease No Ricardo Norton [place] Patient has chronic kidney disease Care Plan Patient has chronic kidney disease No Ricardo Norton MA Weekly blood pressure task Care Plan Weekly blood pressure task No Lita Álvarez Weekly blood pressure task Care Plan Weekly blood pressure task No Henri Lita Patient has chronic kidney disease Care Plan Patient has chronic kidney disease No Henri Lita Patient has chronic kidney disease Care Plan Patient has chronic kidney disease No Henri Lita Weekly blood pressure task Care Plan Weekly blood pressure task No Ana Davis FNP Weekly blood pressure task Care Plan Weekly blood pressure task No Ana Davis FNP Patient has chronic kidney disease Care Plan Patient has chronic kidney disease No Ana Davis FNP Patient has chronic kidney disease Care Plan Patient has chronic kidney disease No Aan Davis FNP documented as of this encounter Visit Diagnoses Diagnosis Cirrhosis of liver without ascites, unspecified hepatic cirrhosis type (HCC)- Primary documented in this encounter Additional Health [...] 09/20/2025 Patient has chronic kidney disease 09/20/2025 Assessment Noted Time PHQ-9 Depression Total Score: 0 09/20/20 10:15 AM EST documented as of this encounter Care Teams Air Defense Control Officer Relationship Specialty Start Date End Date Ana Davis FNP [address] [place] [address] PCP - General Family Medicine 04/05/22 Andree Ulloa PharmD [address] [place] [address] Pharmacist Internal Medicine 05/09/23 Flavia Segundo PetrologistTool And Equipment Rental Clerk 10/10/23 Gabrielle Fitch PetrologistTool And Equipment Rental Clerk 11/05/24 [employer] 02/06/25 documented as of this encounter
--- OUTSIDE RECORDS SUMMARY | 2025-10-13 15:10 | XMS_ITS | Encounter Summary ---
Author Organization [employer] Address [address] [facility] 7t [place] [address] Care Team Providers Care Hydroblaster Name Role Phone [facility] Primary Care Provider [phone] Andree Ulloa PharmD Unavailable [phone] Maude Dennis RN Unavailable [phone] Jacquie Sarkar Unavailable Jacquie Sarkar Unavailable Reason for Visit * Reason Comments Med Refill Encounter Details Date Type Department Care Team ([facility] st Contact Info) Description 10/03/2023 Refill [facility]S [address] [place], [place] [phone] [facility] [address] [facility] [place], [place] [phone] Schizophrenia, unspecified type (CMS/HCC) Social History Tobacco [...] the past 12 months, has t he [employer], gas, oil or water [employer] threatened to shut off services in your [...] Description 10/18/2025 10:30 AM EST Medication Management [facility] [address] [place] [address] Harrison Salazar, ChelyD [address] [place] [address] 10/27/2025 11:30 AM EST Office Visit [facility] [address] [place] [address] River RanchAna [facility] 230 [place] [address] documented as of this encounter Goals Goal [...] documented as of this encounter Care Teams Hydroblaster Relationship Specialty Start Date End Date Susan KAROLINA Perez 230 [place] [address] PCP - General Family Medicine 04/05/22 Andree Ulloa PharmD [address] [place] [address] Pharmacist Internal Medicine 05/09/23 Maude Dennis RN [address] [place] [address] Guest Relations ExecutiveAssembler Metal Furniture 08/27/24 12/22/24 Jacquie Sarkar 05/20/25 06/03/25 Jacquie Sarkar 06/10/25 06/15/25 Flavia Segundo Livestock TraderAssembler Metal Furniture 10/10/23 [employer] 08/14/24 02/11/25 Gabrielle Fitch Livestock TraderAssembler Metal Furniture 11/05/24 [employer] 02/06/25 documented as of this encounter
--- OUTSIDE RECORDS SUMMARY | 2025-10-13 15:10 | XMS_ITS | Encounter Summary ---
Author Organization [employer] Address [address] [facility] 7t [place] [address] Care Team Providers Care Fundraising Officer Name Role Phone Susan [facility] Primary Care Provider Andree Ulloa PharmD Unavailable [phone] Reason for Visit * Reason Onset Date Comments Hospital Follow-up 09/15/2025 Encounter Details Date Type Department Care Team ([facility] Contact Info) Description 09/15/2025 Telephone [facility] 230 [place], [place] [phone] Tyler Jones FNP 230 [place], [place] [phone] Hospital Follow-up Social History Tobacco Use Types [...] Miscellaneous Notes * Telephone Encounter - Yojana Lau - 09/15/2025 11:47 AM EST Tc from Clarisa retuning CONSTRUCTION ACCOUNTANT call in regard of the hospital follow up appointment . Contact Clarisa AMADOR at [phone] documented in this encounter Plan of Treatment Upcoming Encounters Date Type Department Care Team (Late st Contact Info) Description 10/18/2025 10:30 AM EST Medication Management [facility] [address] [place] [address] Harrison Salazar, PharmD 230 [place] [address] 10/27/2025 11:30 AM EST Office Visit [facility] [address] [place] [address] Ana Davis FNP [address] [place] [address] documented as of this encounter Goals Goal [...] Result Component 7.7( 10:33 AM EST) No PuAndree carbone PharmD Help patients manage their type 2 diabetes Care Plan Help patients manage their type 2 diabetes No Taes-Gambl Kirstie jimenez PharmFelicita Weekly blood pressure task Care Plan Weekly blood pressure task No Taes-Gambl eKirstie PharmD Help patients manage their type 2 diabetes Care Plan Help patients manage their type 2 diabetes No Taes-Gambl eKirstie PharmD Patient has chronic kidney disease Care Plan Patient has chronic kidney disease No Eloy-Teral eKirstie PharmD Weekly blood pressure task Care Plan Weekly blood pressure task No Taes-Gambl eKirstie PharmD Patient has chronic kidney disease Care [...] Weekly blood pressure task No Harrison Salazar, Cesia Weekly blood pressure task Care Plan Weekly [...] documented as of this encounter Care Teams Fundraising Officer Relationship Specialty Start Date End Date PelicanAna FNP [address] [place] [address] PCP - General Family Medicine 04/05/22 Andree Ulloa, Cesia [address] [place] [address] Pharmacist Internal Medicine 05/09/23 Flavia Segundo Head CharrerFloor Coverer Apprentice 10/10/23 Gabrielle Fitch Head CharrerFloor Coverer Apprentice 11/05/24 [employer] 02/06/25 documented as of this encounter
--- OUTSIDE RECORDS SUMMARY | 2025-10-13 15:10 | XMS_ITS | Encounter Summary ---
Author Organization [employer] Address [address] [facility] 7t [place] [address] Care Team Providers Care Welfare Specialist Name Role Phone [facility] Primary Care Provider [phone] Andree Ulloa PharmD Unavailable Maude Dennis RN Unavailable [phone] Jacquie Sarkar Unavailable Jacquie Sarkar Unavailable Reason for Visit * Reason Onset Date Comments requesting a call back 02/05/2023 Encounter Details Date Type Department Care Team (Late st Contact Info) Description 02/05/2023 Telephone [facility] 230 [place], [place] [phone] [facility] 230 [place], [place] [phone] requesting a call back Social History Tobacco [...] Recorded In the last 10 days, have philip u been in contact with someone who [...] . States needs to return them to [facility] . documented in this encounter Plan of Treatment Upcoming Encounters Date Type Department Care Team (Late st Contact Info) Description 10/18/2025 10:30 AM EST Medication Management [address] [address] Harrison Salazar PharmD [address] [place] [address] 10/27/2025 11:30 AM EST Office Visit [facility] [address] [place] [address] [place] [address] [address] documented as of this encounter Visit Diagnoses Not on filedocumented in this encounter Additional Health Concerns Assessment Noted Time PHQ-9 Depression Total Score: 0 12/03/19 10:53 AM EST documented as of this encounter Care Teams Welfare Specialist Relationship Specialty Start Date End Date MemphisAna levy [facility] [address] [place] [address] PCP - General Family Medicine 04/05/22 Andree Ulloa PharmD [address] [place] [address] Pharmacist Internal Medicine 05/09/23 Maude Dennis, MARQUITA [address] [place] [address] Car Dumper Operator HelperElectric Welder 08/27/24 12/22/24 Jacquie Sarkar 05/20/25 06/03/25 Jacquie Sarkar 06/10/25 06/15/25 Flavia Segundo Weights And Measures InspectorElectric Welder 10/10/23 [employer] 08/14/24 02/11/25 Gabrielle Fitch Weights And Measures InspectorElectric Welder 11/05/24 [employer] 02/06/25 documented as of this encounter
--- OUTSIDE RECORDS SUMMARY | 2025-10-13 15:10 | XMS_ITS | Encounter Summary ---
Author Organization [employer] Address [address] [facility] 7t [place] [address] Care Team Providers Care Poll Watcher Name Role Phone [facility] Primary Care Provider [phone] Andree Ulloa PharmD Unavailable [phone] Maude Dennis RN Unavailable [phone] Jacquie Sarkar Unavailable Jacquie Sarkar Unavailable Reason for Visit * Reason Comments Med Refill Encounter Details Date Type Department Care Team (Late st Contact Info) Description 10/03/2023 Refill [facility]S [address] [place], [place] [phone] [facility] [address] [facility] [address] [place], [place] [phone] Tardive dyskinesia Social History Tobacco Use Types [...] the past 12 months, has t he [employer], shopandsave, oil or water [employer] threatened to shut off services in your [...] Description 10/18/2025 10:30 AM EST Medication Management [facility] [address] [place] [address] Harrison Salazar, ChelyD 230 [place] [address] 10/27/2025 11:30 AM EST Office Visit [facility] [address] [place] [address] [facility] 230 [place] [address] documented as of this encounter Goals Goal [...] documented as of this encounter Care Teams Poll Watcher Relationship Specialty Start Date End Date SpringfieldAna FNP 230 [place] [address] PCP - General Family Medicine 04/05/22 Andree Ulloa PharmD [address] [place] [address] Pharmacist Internal Medicine 05/09/23 Maude Dennis RN [address] [place] [address] [address] [address] [employer] Law ClerkLocomotive Operator Helper 08/27/24 12/22/24 Jacquie Sarkar 05/20/25 06/03/25 Jacquie Sarkar 06/10/25 06/15/25 Flavia Segundo Market Sales ManagerLocomotive Operator Helper 10/10/23 [employer] 08/14/24 02/11/25 Gabrielle Fitch Market Sales ManagerLocomotive Operator Helper 11/05/24 [employer] 02/06/25 documented as of this encounter
--- OUTSIDE RECORDS SUMMARY | 2025-10-13 15:10 | XMS_ITS | Encounter Summary ---
Author Organization [employer] Address [address] [facility] 7t [place] [address] Care Team Providers Care Lining Caser Name Role Phone [facility] Primary Care Provider [phone] Andree Ulloa PharmD Unavailable [phone] Maude Dennis RN Unavailable [phone] Jacquie Sarkar Unavailable Jacquie Sarkar Unavailable Reason for Visit * Reason Onset Date Comments Med Refill 08/05/2024 Encounter Details Date Type Department Care Team (Late st Contact Info) Description 08/05/2024 Telephone [facility] MED[facility] 230 [place], [place] [phone] [facility] 230 [place], [place] [phone] Med Refill Social History Tobacco Use Types [...] PM EDT Tc from pt requesting a F appt. Hospital: [facility] Date of admission: 06/23/24 Discharge date: 08/13/24 Diagnosed: Multiple fractures of the ribs documented in this encounter Plan of Treatment Upcoming Encounters Date Type Department Care Team (Late st Contact Info) Description 10/18/2025 10:30 AM EST Medication Management [facility] MEDICINE [address] [place] [address] Harrison Salazra, PharmD 230 [place] [address] 10/27/2025 11:30 AM EST Office Visit [facility]INE [address] [place] [address] Ana Davis, WATER MAIN INSTALLER HELPER [address] [place] [address] documented as of this encounter Goals Goal [...] documented as of this encounter Care Teams Lining Caser Relationship Specialty Start Date End Date Ana Davis FNP [address] [place] [address] PCP - General Family Medicine 04/05/22 Andree Ulloa PharmD [address] [place] [address] Pharmacist Internal Medicine 05/09/23 Maude Dennis RN [address] [place] [address] Hazardous Materials Waste TechnicianMerchandise Stocker 08/27/24 12/22/24 Jacquie Sarkar 05/20/25 06/03/25 Jacquie Sarkar 06/10/25 06/15/25 Flavia Segundo Green Chain PullerMerchandise Stocker 10/10/23 [employer] 08/14/24 02/11/25 Gabrielle Fitch Green Chain PullerMerchandise Stocker 11/05/24 [employer] 02/06/25 documented as of this encounter
--- OUTSIDE RECORDS SUMMARY | 2025-10-13 15:10 | XMS_ITS | Encounter Summary ---
Author Organization [employer] Address [address] [facility] 7t [place] [address] Care Team Providers Care Mangle Roller Name Role Phone [facility] Primary Care Provider [phone] Andree Ulloa PharmD Unavailable [phone] Jacquie Sarkar Unavailable Jacquie Sarkar Unavailable Reason for Visit * Reason Onset Date Comments Med Refill 02/09/2025 Encounter Details Date Type Department Care Team (Late st Contact Info) Description 02/09/[address] [facility] 230 [place], [place] [phone] [place] 230 [place], [place] [phone] Med Refill Social History Tobacco Use Types [...] this patient to enroll care in [facility] - Diabetes clinic. Please send at your earliest convenience. * Telephone Encounter - Reinaldo Darling - 02/09/2025 9:50 AM EDT TC from pt requesting medication refill. Medications needing refill : insulin degludec (Tresiba FlexTouch) 200 UNIT/ML injection Blood Glucose Monitoring Suppl (D-Care Glucometer) w/Device kit To be sent to: [facility]- - [place], [place] - [address] documented in this encounter Plan of Treatment Upcoming Encounters Date Type Department Care Team (Late st Contact Info) Description 10/18/2025 10:30 AM EST Medication Management [facility] 230 [place] [address] Harrison Salazar PharmD 230 [facility] [place] [address] 10/27/2025 11:30 AM EST Office Visit [facility] 230 [facility] [place] [phone] [facility] 230 [place] [address] documented as of this encounter Goals Goal [...] documented as of this encounter Care Teams Mangle Roller Relationship Specialty Start Date End Date Ana [facility] [place] [address] PCP - General Family Medicine 04/05/22 Anrdee Ulloa PharmD [facility] [place], [place] [phone] Pharmacist Internal Medicine 05/09/23 Jacquie Sarkar 05/20/25 06/03/25 Jacquie Sarkar 06/10/25 06/15/25 Flavia Segundo Big Machine ConsultantFinish Photographer 10/10/23 [employer] 08/14/24 02/11/25 Gabrielle Fitch Big Machine ConsultantFinish Photographer 11/05/24 [facility] [employer] 02/06/25 documented as of this encounter
--- OUTSIDE RECORDS SUMMARY | 2025-10-13 15:10 | XMS_ITS | Encounter Summary ---
Author Organization [employer] Address [address] [facility] 7t [place] [address] Care Team Providers Care Panel Builder Name Role Phone [facility] Primary Care Provider [phone] Andree Ulloa PharmD Unavailable [phone] Maude Dennis RN Unavailable [phone] Jacquie Sarkar Unavailable Jacquie Sarkar Unavailable Reason for Visit * Reason Comments Med Refill Encounter Details Date Type Department Care Team (Late st Contact Info) Description 10/01/2023 Refill [facility] MED [facility] PEDS [address] [place], [place] [phone] [facility] [address] [place], [place] [phone] Tardive dyskinesia; Schizophrenia, unspecified type (CMS/HCC) Social [...] the past 12 months, has t he [employer], gas, oil or water [employer] threatened to shut off services in your [...] Description 10/18/2025 10:30 AM EST Medication Management [address] [address] Harrison Salazar, PharmD [address] [place] [address] 10/27/2025 11:30 AM EST Office Visit [facility] MEDICINE [address] [place] [address] [facility] 230 [place] [address] documented as of this encounter Goals Goal [...] documented as of this encounter Care Teams Panel Builder Relationship Specialty Start Date End Date Ana DavisKAROLINA 230 [place] [address] PCP - General Family Medicine 04/05/22 Andree Ulloa PharmD 230 [place] [address] Pharmacist Internal Medicine 05/09/23 Maude Dennis, MARQUITA 505 [place] [address] Physical Therapist TechnicianTelephone Order Supervisor 08/27/24 12/22/24 Jacquie Sarkar 05/20/25 06/03/25 Jacquie Sarkar 06/10/25 06/15/25 Flavia Segundo Sales Administration SpecialistTelephone Order Supervisor 10/10/23 [employer] 08/14/24 02/11/25 Gabrielle Fitch Sales Administration SpecialistTelephone Order Supervisor 11/05/24 [employer] 02/06/25 documented as of this encounter
--- OUTSIDE RECORDS SUMMARY | 2025-10-13 15:10 | XMS_ITS | Encounter Summary ---
Author Organization [employer] Address [address] [facility] [address]t [place] [address] Care Team Providers Care Novelty Candy Maker Name Role Phone Ana Davis DRIVER LICENSE REVIEWING OFFICER Primary Care Provider [phone] Andree Ulloa PharmD Unavailable [phone] Jacquie Sarkar Unavailable Jacquie Sarkar Unavailable Encounter Details Date Type Department Care Team (Late st Contact Info) Description 05/14/2025 Orders Only [facility] MEDICINE 230 [place], [place] [phone] Maye Ortiz NP 230 [place], [place] [phone] Social History Tobacco Use Types Packs/Day Years [...] Description 10/18/2025 10:30 AM EST Medication Management [address] [address] Harrison Salazar PharmD [address] [place] [address] 10/27/2025 11:30 AM EST Office Visit [facility] MEDICINE [address] [place] [address] AhmeekAna, DRIVER LICENSE REVIEWING OFFICER 230 [place] [address] documented as of this encounter Goals Goal [...] documented as of this encounter Care Teams Novelty Candy Maker Relationship Specialty Start Date End Date AhmeekAna levy FNP 230 [place] [address] PCP - General Family Medicine 04/05/22 Andree Ulloa PharmD 230 [place] [address] Pharmacist Internal Medicine 05/09/23 Jacquie Sarkar 05/20/25 06/03/25 Jacquie Sarkar 06/10/25 06/15/25 Flavia Segundo Truck TechnicianMarker Assembler 10/10/23 Gabrielle Fitch Truck TechnicianMarker Assembler 11/05/24 [employer] 02/06/25 documented as of this encounter
--- OUTSIDE RECORDS SUMMARY | 2025-10-13 15:10 | XMS_ITS | Encounter Summary ---
Author Organization [employer] Address [address] [facility] [address] [place] [address] Care Team Providers Care Senior Credit Analyst Name Role Phone Ana Davis INCLUSION SPECIAL EDUCATION TEACHER Primary Care Provider [phone] Andree Ulloa PharmD Unavailable [phone] Maude Dennis RN Unavailable [phone] Jacquie Sarkar Unavailable Jacquie Sarkar Unavailable Encounter Details Date Type Department Care Team (Late Contact Info) Description 01/21/2023 Telephone [facility] [address] [place] [address] Kimberly Donaldson LPN Social History Tobacco [...] Department Care Team (Late Contact Info) Description 10/18/2025 10:30 AM EST Medication Management [facility] [address], [place] [id number] Harrison Salazar, PharmD [address] [place] [id number] 10/27/2025 11:30 AM EST Office Visit [facility] [address] [place] [address] [place] [facility] [address] [place] [address] documented as of this encounter Visit Diagnoses Not on filedocumented in this encounter Additional Health Concerns Assessment Noted Time PHQ-9 Depression Total Score: 0 12/03/19 10:53 AM EST documented as of this encounter Care Teams Senior Credit Analyst Relationship Specialty Start Date End Date Ana Davis [facility] [address] [place] [phone] PCP - General Family Medicine 04/05/22 Andree Ulloa, ChelyD [address] [place] [phone] Pharmacist Internal Medicine 05/09/23 Maude Dennis, MARQUITA [address] [place] [phone] Photo RetoucherFront End Developer 08/27/24 12/22/24 Jacquie Sarkar 05/20/25 06/03/25 Jacquie Sarkar 06/10/25 06/15/25 Flavia Segundo PharmacologistFront End Developer 10/10/23 [employer] 08/14/24 02/11/25 Gabrielle Fitch PharmacologistFront End Developer 11/05/24 [employer] 02/06/25 documented as of this encounter
[2025-10-13 15:47] LABS: MANUAL DIFF FLAG NO
[2025-10-13 16:21] LABS: Hematocrit 26.4 % (37.0-47.0); Hemoglobin 9.2 g/dl (12.0-16.0); Imm Gran Abs Auto 0.02 X10*3/uL (0.00-0.03); Imm Gran Pct Auto 0.5 % (0.0-0.4); Lymphocytes Absolute Auto 0.6 X10*3/uL (1.2-4.9); Mean Corpuscular HGB Conc 34.8 g/dl (31.0-35.0); Mean Corpuscular Hemoglobin 32.3 pg (27.0-33.0); Mean Corpuscular Volume 92.6 fL (80.0-98.0); NRBC Abs Auto 0.000 X10*3/uL (0.0-0.012); NRBC Pct Auto 0.0 /100WBC (0.0-0.2); Red Blood Count 2.85 X10*6/uL (4.20-5.50); White Blood Count 3.8 X10*3/uL (4.8-10.8)
[2025-10-13 16:24] LABS: Platelet Count 29 X10*3/uL (160-400)
[2025-10-13 16:50] LABS: Alanine Aminotransferase 43 U/L (0-31); Albumin Level 3.1 g/dL (3.5-5.0); Alkaline Phosphatase 150 U/L (39-117); Anion Gap 12 (12-20); Aspartate Amino Transferase 44 U/L (5-31); Blood Urea Nitrogen 53 mg/dL (9-16); Calcium 9.2 mg/dL (8.4-10.2); Carbon Dioxide 22 mmol/L (22-29); Chloride 107 mmol/L (96-108); Estimated Glomerular Filt Rate 37; Potassium 5.1 mmol/L (3.3-5.1); Sodium 136 mmol/L (135-145); Total Protein 6.5 g/dL (6.5-8.0)
== END 2025-10-13 15:06 | disposition home or self-care (01) ==
LOC: HO.LAB 15:05
PROVIDERS: PCP Registered Nurse; Visit Provider Internal Medicine
DX: K74.60 Unspecified cirrhosis of liver (principal)
CPT/HCPCS: 36415; 80053; 85025